=== PATIENT | female | born 1960 | race Caucasian/White ===

== ENCOUNTER 2018-10-16 14:19 | Emergency (ER) | payer MEDICARE, MEDICAID, SELFPAY ==
[2018-10-16 14:22] VITALS: BP 140/95; PULSE 71; RESP 18; TEMP 36.8; O2SAT 99
--- NOTE | 2018-10-16 14:35 | DI.RAD_ITS ---
SYMPTOMS/DIAGNOSIS: FALL ONTO OUTSTRETCHED HAND LEFT WRIST: Three views were obtained and show severely comminuted fractures of the distal radius and ulna with marked displacement of fracture fragments. There is widening of the articular surface of the distal radius. No additional carpal fracture seen.
--- NOTE | 2018-10-16 14:37 | W.ED.GENAD ---
Discharge Plan Disposition Patient Disposition: HOME Condition: Fair Discharge Details Chief Complaint: Orthopedic Clinical Impression: Closed fracture distal radius and ulna Primary Care Provider: Stephany Molina ED Provider: Adina Vee [place] Meds and New Rx's Prescriptions: New oxycodone 5 mg tablet 5 mg PO Q4H Qty: 10 RF: 0 Continued atenolol 100 MG tablet 100 mg PO DAILY RF: 0 clonazepam 1 MG tablet 1 - 2 mg PO .QHS RF: 0 esomeprazole magnesium [Nexium] 40 MG capsule,delayed release(DR/EC) 40 mg PO DAILY RF: 0 zolpidem 10 MG tablet 10 mg PO .QHS RF: 0 lisinopril-hydrochlorothiazide 20-12.5 mg Tablet 20 mg PO DAILY RF: 0 ibuprofen 800 mg Tablet 800 mg PO TID RF: 0 prochlorperazine maleate 5 mg Tablet 5 mg PO PRN PRNRF: 0 colesevelam [WelChol] 625 mg Tablet 1,875 mg PO DAILY RF: 0 Advair Diskus 100-50 mcg/dose Blister With Device 1 puff Inhalation DAILY RF: 0 fluticasone [Flonase Allergy Relief] 50 mcg/actuation [place],Suspension 100 mcg Intranasal PRN PRNRF: 0 acetaminophen 500 mg Capsule 500 mg PO DAILY RF: 0 levalbuterol tartrate [Xopenex HFA] 45 mcg/actuation Hfa Aerosol Inhaler 2 puff Inhalation TID RF: 0 tizanidine [Zanaflex] 2 mg Capsule 2 mg PO DAILY RF: 0 Narcan 4 mg/actuation [place],Non-Aerosol 4 mg Intranasal PRN PRNRF: 0 Discharge Instructions Instructions: Wrist Fracture in Adults (ED) Additional Instructions: Encourage rest, ice, elevation. Tylenol and/or Motrin as needed for discomfort. Please follow up with Dr. Gonzalez as planned, number listed below. If you develop new/worsening symptoms please seek care urgently once again. Referrals: Alfredo Gonzalez MD [ [facility] STAFF PHYSICIAN] - ([phone]) Stephany Molina [Primary Care Provider] - Discharge Data Discharge Date/Time-TO BE ENTERED AT DEPARTURE: 10/16/18 16:49 Medical Decision Making Patient is a 58-year-old [id number] female presenting today with chief complaint of left wrist pain. She reports that prior to arrival she slipped on the ice while carrying a large in the right arm. Tried to catch herself with her left hand. Had immediate onset of discomfort in the left wrist. She denies other injury at the time of the incident. Did not strike her head, loss of consciousness. Denies any pain in her neck or back. No shortness of breath or chest pain. No nausea or vomiting. No break in the skin is noted. Patient does have notable swelling, discomfort and slight deformity to the left wrist. Will obtain imaging. Will give Tylenol and ibuprofen to help with discomfort X-ray reviewed by radiologist: Three views were obtained and show severely comminuted fractures of the distal radius and ulna with marked displacement of fracture fragments. There is widening of the articular surface of the distal radius. No additional carpal fracture seen. The Carlos evaluated the x-ray, evaluated patient feels that reduction is appropriate. Please see his note for further information. He performed a bedside hematoma block and reduction. Applied plaster splint post reduction. He has requested that I place the patient in a sling Encourage rest, ice, elevation. Tylenol and/or ibuprofen as needed for discomfort. Patient will be prescribed oxycodone to augment this with in the event that it is insufficient in relieving her discomfort. Patient is planned to have surgical intervention with Dr. Gonzalez, he advised that he will be in touch with her in the next few days. We discussed new/worsening symptoms and when to seek care urgently once again. Patient continues to have brisk capillary refill and good sensation in her digits. All of her questions and concerns were addressed and she is in agreement this HPI General Mode of arrival: ambulatory. Date/Time Provider Initiated Documentation: 10/16/18 14:34. Limitations to Documentation: no limitations. Information obtained by: patient. History of Present Illness 58 year old F presents to the emergency department with the chief complaint of left wrist pain, described as severe, with intensity rated at 10. Quality is described as sharp, and is localized to the upper extremity. Patient distal (into hand with movement). Patient started experiencing this minute(s) and it has been constant. Immobilization improves symptom(s), Movement worsens symptoms . Patient notes denies chest pain, fever/chills, headaches, nausea/vomiting and rash. Patient did receive the following treatments prior to arrival, none Related Data Home Medications Medication Instructions Recorded Confirmed atenolol 100 mg PO DAILY 05/10/14 10/16/18 clonazepam 1 - 2 mg PO .QHS 05/10/14 10/16/18 esomeprazole magnesium [Nexium] 40 mg PO DAILY 05/10/14 10/16/18 zolpidem 10 mg PO .QHS 05/10/14 10/16/18 Advair Diskus 1 puff INHALATION DAILY 10/16/18 10/16/18 Narcan 4 mg INTRANASAL PRN PRN 10/16/18 10/16/18 acetaminophen 500 mg PO DAILY 10/16/18 10/16/18 colesevelam [WelChol] 1,875 mg PO DAILY 10/16/18 10/16/18 fluticasone [Flonase Allergy 100 mcg INTRANASAL PRN PRN 10/16/18 10/16/18 Relief] ibuprofen 800 mg PO TID 10/16/18 10/16/18 levalbuterol tartrate [Xopenex HFA] 2 puff INHALATION TID 10/16/18 10/16/18 lisinopril-hydrochlorothiazide 20 mg PO DAILY 10/16/18 10/16/18 oxycodone 5 mg PO Q4H #10 tab 10/16/18 prochlorperazine maleate 5 mg PO PRN PRN 10/16/18 10/16/18 tizanidine [Zanaflex] 2 mg PO DAILY 10/16/18 10/16/18 Previous Rx's Medication Instructions Recorded oxycodone 5 mg PO Q4H #10 tab 10/16/18 Allergies Allergy/AdvReac Type Severity Reaction Status Date / Time acetaminophen [From Roxicet] Allergy Intermediate Itching Unverified 11/10/16 12:28 oxycodone HCl [From Roxicet] Allergy Intermediate Itching Unverified 11/10/16 12:28 Sulfa (Sulfonamide Allergy Intermediate Skin Rash Unverified 11/10/16 12:28 Antibiotics) aspirin Allergy Unknown Unverified 11/10/16 12:28 hydrochlorothiazide AdvReac Intermediate Unverified 11/10/16 12:28 trazodone AdvReac Intermediate Unverified 11/10/16 12:28 General Stated Complaint: Orthopedic NEO: 4 Review of Systems Constitutional Reports as per HPI, Denies chills, Denies fever(s), Denies headache(s) and Denies weakness ENT Denies headache(s) Cardiovascular Reports as per HPI Respiratory Reports as per HPI and Denies cough Musculoskeletal Reports as per HPI and Denies tingling Integumentary/Breasts Reports as per HPI, Denies rash and Denies wounds Neurologic Denies headache(s), Denies tingling and Denies weakness PFS Social History Smoking/Tobacco Use Status: Never Exam Const General: cooperative, healthy appearing, comfortable, no acute distress, well developed and well groomed Nutritional Appearance: average body habitus and well nourished Orientation: alert and awake Resp Effort & Inspection: normal respiratory effort, able to speak in complete sentences and no respiratory distress Cardio Rate: regular rate Rhythm: regular rhythm Skin General skin exam: no rashes or lesions noted Lesions: no lesions Rashes: no rashes Trauma: no lacerations or abrasions Neuro General: alert and awake Cognition: normal cognition Speech: speech normal Gait: normal gait Motor: muscle tone normal throughout Sensory Exam: no sensory deficits noted Extrem Left upper extremity: normal capillary refill, elbow/forearm Details: normal to inspection and wrist Details: tenderness Location: of the distal radius, of the distal ulna and of the dorsal wrist; not of the anatomic snuffbox, swelling Location: of the dorsal wrist, deformity and normal vascular exam; ROM abnormal, no unusual warmth and no ecchymosis; abnormal to inspection, ROM limited, no edema and joint enlargement noted (Swelling dorsal aspect left wrist) Psych Appearance: grossly normal and well kempt Mental Status: mental status grossly normal Speech and Movement: speech and movement normal Course Vital Signs Temperature 36.8 C 10/16/18 14:22 Pulse 71 10/16/18 14:22 Respiratory Rate 18 10/16/18 14:22 Blood Pressure 140/95 H 10/16/18 14:22 Pulse Oximetry 99 10/16/18 14:22 Temperature 36.8 C 10/16/18 14:22 Temperature Source Temporal Artery Scan 10/16/18 14:22 Pulse 71 10/16/18 14:22 Respiratory Rate 18 10/16/18 14:22 Respiratory Effort Non-Labored 10/16/18 14:22 Blood Pressure 140/95 H 10/16/18 14:22 Blood Pressure Position Supine 10/16/18 14:22 Pulse Oximetry 99 10/16/18 14:22 Oxygen Delivery Method Room Air 10/16/18 14:22 Oxygen Flow Rate 0 10/16/18 14:22 Pain Level 10 10/16/18 14:22
--- NOTE | 2018-10-16 14:46 | ED.GENADUL_ITS ---
Discharge Plan Disposition Patient Disposition: HOME Condition: Fair Discharge Details Chief Complaint: Orthopedic Clinical Impression: Closed fracture distal radius and ulna Primary Care Provider: Stephany Molina ED Provider: Adina Vee [place] Meds and New Rx's Prescriptions: New oxycodone 5 mg tablet 5 mg PO Q4H Qty: 10 RF: 0 Continued atenolol 100 MG tablet 100 mg PO DAILY RF: 0 clonazepam 1 MG tablet 1 - 2 mg PO .QHS RF: 0 esomeprazole magnesium [Nexium] 40 MG capsule,delayed release(DR/EC) 40 mg PO DAILY RF: 0 zolpidem 10 MG tablet 10 mg PO .QHS RF: 0 lisinopril-hydrochlorothiazide 20-12.5 mg Tablet 20 mg PO DAILY RF: 0 ibuprofen 800 mg Tablet 800 mg PO TID RF: 0 prochlorperazine maleate 5 mg Tablet 5 mg PO PRN PRNRF: 0 colesevelam [WelChol] 625 mg Tablet 1,875 mg PO DAILY RF: 0 Advair Diskus 100-50 mcg/dose Blister With Device 1 puff Inhalation DAILY RF: 0 fluticasone [Flonase Allergy Relief] 50 mcg/actuation [place],Suspension 100 mcg Intranasal PRN PRNRF: 0 acetaminophen 500 mg Capsule 500 mg PO DAILY RF: 0 levalbuterol tartrate [Xopenex HFA] 45 mcg/actuation Hfa Aerosol Inhaler 2 puff Inhalation TID RF: 0 tizanidine [Zanaflex] 2 mg Capsule 2 mg PO DAILY RF: 0 Narcan 4 mg/actuation [place],Non-Aerosol 4 mg Intranasal PRN PRNRF: 0 Discharge Instructions Instructions: Wrist Fracture in Adults (ED) Additional Instructions: Encourage rest, ice, elevation. Tylenol and/or Motrin as needed for discomfort. Please follow up with Dr. Gonzalez as planned, number listed below. If you develop new/worsening symptoms please seek care urgently once again. Referrals: Alfredo Gonzalez MD [ [facility] STAFF PHYSICIAN] - ([phone]) Stephany Molina [Primary Care Provider] - Discharge Data Discharge Date/Time-TO BE ENTERED AT DEPARTURE: 10/16/18 16:49 Medical Decision Making Patient is a 58-year-old [id number] female presenting today with chief complaint of left wrist pain. She reports that prior to arrival she slipped on the ice while carrying a large in the right arm. Tried to catch herself with her left hand. Had immediate onset of discomfort in the left wrist. She denies other injury at the time of the incident. Did not strike her head, loss of consciousness. Denies any pain in her neck or back. No shortness of breath or chest pain. No nausea or vomiting. No break in the skin is noted. Patient does have notable swelling, discomfort and slight deformity to the left wrist. Will obtain imaging. Will give Tylenol and ibuprofen to help with discomfort X-ray reviewed by radiologist: Three views were obtained and show severely comminuted fractures of the distal radius and ulna with marked displacement of fracture fragments. There is widening of the articular surface of the distal radius. No additional carpal fracture seen. The Carlos evaluated the x-ray, evaluated patient feels that reduction is appropriate. Please see his note for further information. He performed a bedside hematoma block and reduction. Applied plaster splint post reduction. He has requested that I place the patient in a sling Encourage rest, ice, elevation. Tylenol and/or ibuprofen as needed for discomfort. Patient will be prescribed oxycodone to augment this with in the event that it is insufficient in relieving her discomfort. Patient is planned to have surgical intervention with Dr. Gonzalez, he advised that he will be in touch with her in the next few days. We discussed new/worsening symptoms and when to seek care urgently once again. Patient continues to have brisk capillary refill and good sensation in her digits. All of her questions and concerns were addressed and she is in agreement this HPI General Mode of arrival: ambulatory . Date/Time Provider Initiated Documentation: 10/16/18 14:34 . Limitations to Documentation: no limitations . Information obtained by: patient . History of Present Illness 58 year old F presents to the emergency department with the chief complaint of left wrist pain, described as severe, with intensity rated at 10. Quality is described as sharp, and is localized to the upper extremity. Patient distal (into hand with movement). Patient started experiencing this minute(s) and it has been constant. Immobilization improves symptom(s), Movement worsens symptoms . Patient notes denies chest pain, fever/chills, headaches, nausea/vomiting and rash. Patient did receive the following treatments prior to arrival, none Related Data Home Medications Medication Instructions Recorded Confirmed atenolol 100 mg PO DAILY 05/10/14 10/16/18 clonazepam 1 - 2 mg PO .QHS 05/10/14 10/16/18 esomeprazole magnesium [Nexium] 40 mg PO DAILY 05/10/14 10/16/18 zolpidem 10 mg PO .QHS 05/10/14 10/16/18 Advair Diskus 1 puff INHALATION DAILY 10/16/18 10/16/18 Narcan 4 mg INTRANASAL PRN PRN 10/16/18 10/16/18 acetaminophen 500 mg PO DAILY 10/16/18 10/16/18 colesevelam [WelChol] 1,875 mg PO DAILY 10/16/18 10/16/18 fluticasone [Flonase Allergy 100 mcg INTRANASAL PRN PRN 10/16/18 10/16/18 Relief] ibuprofen 800 mg PO TID 10/16/18 10/16/18 levalbuterol tartrate [Xopenex HFA] 2 puff INHALATION TID 10/16/18 10/16/18 lisinopril-hydrochlorothiazide 20 mg PO DAILY 10/16/18 10/16/18 oxycodone 5 mg PO Q4H #10 tab 10/16/18 prochlorperazine maleate 5 mg PO PRN PRN 10/16/18 10/16/18 tizanidine [Zanaflex] 2 mg PO DAILY 10/16/18 10/16/18 Previous Rx's Medication Instructions Recorded oxycodone 5 mg PO Q4H #10 tab 10/16/18 Allergies Allergy/AdvReac Type Severity Reaction Status Date / Time acetaminophen [From Roxicet] Allergy Intermediate Itching Unverified 11/10/16 12:28 oxycodone HCl [From Roxicet] Allergy Intermediate Itching Unverified 11/10/16 12:28 Sulfa (Sulfonamide Allergy Intermediate Skin Rash Unverified 11/10/16 12:28 Antibiotics) aspirin Allergy Unknown Unverified 11/10/16 12:28 hydrochlorothiazide AdvReac Intermediate Unverified 11/10/16 12:28 trazodone AdvReac Intermediate Unverified 11/10/16 12:28 General Stated Complaint: Orthopedic NEO: 4 Review of Systems Constitutional Reports as per HPI, Denies chills, Denies fever(s), Denies headache(s) and Denies weakness ENT Denies headache(s) Cardiovascular Reports as per HPI Respiratory Reports as per HPI and Denies cough Musculoskeletal Reports as per HPI and Denies tingling Integumentary/Breasts Reports as per HPI, Denies rash and Denies wounds Neurologic Denies headache(s), Denies tingling and Denies weakness PFS Social History Smoking/Tobacco Use Status: Never Exam Const General: cooperative, healthy appearing, comfortable, no acute distress, well developed and well groomed Nutritional Appearance: average body habitus and well nourished Orientation: alert and awake Resp Effort & Inspection: normal respiratory effort, able to speak in complete sentences and no respiratory distress Cardio Rate: regular rate Rhythm: regular rhythm Skin General skin exam: no rashes or lesions noted Lesions: no lesions Rashes: no rashes Trauma: no lacerations or abrasions Neuro General: alert and awake Cognition: normal cognition Speech: speech normal Gait: normal gait Motor: muscle tone normal throughout Sensory Exam: no sensory deficits noted Extrem Left upper extremity: normal capillary refill, elbow/forearm Details: normal to inspection and wrist Details: tenderness Location: of the distal radius, of the distal ulna and of the dorsal wrist; not of the anatomic snuffbox, swelling Location: of the dorsal wrist, deformity and normal vascular exam; ROM abnormal, no unusual warmth and no ecchymosis; abnormal to inspection, ROM limited, no edema and joint enlargement noted (Swelling dorsal aspect left wrist) Psych Appearance: grossly normal and well kempt Mental Status: mental status grossly normal Speech and Movement: speech and movement normal Course Vital Signs Temperature 36.8 C 10/16/18 14:22 Pulse 71 10/16/18 14:22 Respiratory Rate 18 10/16/18 14:22 Blood Pressure 140/95 H 10/16/18 14:22 Pulse Oximetry 99 10/16/18 14:22 Temperature 36.8 C 10/16/18 14:22 Temperature Source Temporal Artery Scan 10/16/18 14:22 Pulse 71 10/16/18 14:22 Respiratory Rate 18 10/16/18 14:22 Respiratory Effort Non-Labored 10/16/18 14:22 Blood Pressure 140/95 H 10/16/18 14:22 Blood Pressure Position Supine 10/16/18 14:22 Pulse Oximetry 99 10/16/18 14:22 Oxygen Delivery Method Room Air 10/16/18 14:22 Oxygen Flow Rate 0 10/16/18 14:22 Pain Level 10 10/16/18 14:22
[2018-10-16] MEDS: Acetaminophen 500 MG TAB 1000 MG PO (14:54)
[2018-10-16] MEDS: Ibuprofen 800 MG TAB PO (14:54)
--- NOTE | 2018-10-16 15:03 | NUR.NOTE ---
Nursing Note:Pt off unit to XR. noted swelling to left wrist. medicated as ordered. will continue to monitor. ice and elevation applied
--- NOTE | 2018-10-16 15:21 | NUR.NOTE ---
Nursing Note:Returned from XR, surgery in speaking with patient
--- NOTE | 2018-10-16 15:46 | NUR.NOTE ---
Nursing Note: Left wrist fx reduced by ortho in room
--- NOTE | 2018-10-16 16:23 | NUR.NOTE ---
Nursing Note: Resting in bed in room, left arm/wrist splinted. freinds visiting. will continue to monitor.
--- NOTE | 2018-10-16 19:51 | W.ORTHOCONSU ---
Date of service: 11/16/18 Time of Service: 15:51 History of Present Illness Chief Complaint: Left wrist pain Narrative: Lena is a 58yo RHD female who fell earlier today prior to presentation. She had immediate pain and deformity. She denies any numbness or tingling. She denies pain in the elbow or the shoulder. She has no pre-fall pain or complaints about the left wrist. She lives independently by herself. Consult Reason Left wrist fracture Assessment and Plan (1) Fracture of left distal radius: Current visit: No Status: Acute Lena is a 58yo female with a left distal radius and ulna fracture. There is significant displacement. To improve the displacement, I recommended a reduction. A hematoma block was administered after prepping the skin with alcohol, aspirating fracture hematoma, and injecting the fracture site with 10cc of 1% Lidocaine. Her pain improved and a closed reduction was performed. She was placed into a volar resting splint. Given her age, fracture communition, and a fractured ulna, I recommended operative fixation. I discussed the risks of the procedure to include bleeding, infection, pain, stiffness, damage to nerves and vessels, hardware prominence, hardware irritation, need for repeat procedures. Despite these risks she agrees to proceed. Qualifiers: Encounter type: initial encounter Fracture type: closed Fracture morphology: other intra-articular Qualified Code(s): S52.572A - Other intraarticular fracture of lower end of left radius, initial encounter for closed fracture Review of Systems Review of Systems All systems reviewed & are unremarkable except as noted in HPI and below PFS Medical History Hyperlipidemia (Acute) COPD (chronic obstructive pulmonary disease) (Chronic) Chronic pain (Chronic) Social History Smoking/Tobacco Use Status: Never Exam Narrative Exam Narrative: Chest clear to auscultation with faint expiratory wheeze. Mild distress and tearful. Left wrist with notable eccymosis palmarly. There is some swelling. No break in the skin. Obvious dorsal deformity. SILT M/R/U. Results Last Vital Signs Temp 36.8 C 10/16/18 14:22 Pulse 71 10/16/18 14:22 Resp 18 10/16/18 14:22 BP 140/95 H 10/16/18 14:22 Pulse Ox 99 10/16/18 14:22 Imaging Imaging Studies: XR of Left Wrist with significant dorsal displacement of the distal raidus with intraarticular involvement. There s also a communited fracture of the distal ulna.
== END 2018-10-16 16:49 | disposition home or self-care (01) ==
LOC: ER 17:55
PROVIDERS: Emergency Provider Physician Assistant; PCP Nurse Practitioner Family
DX: S52.502A Unspecified fracture of the lower end of left radius, initial encounter for closed fracture (principal); S52.602A Unspecified fracture of lower end of left ulna, initial encounter for closed fracture; W00.0XXA Fall on same level due to ice and snow, initial encounter
CPT/HCPCS: 99253; 99284; 73110; L3650

== ENCOUNTER 2018-10-24 09:02 | Day surgery (SDC) | payer MEDICARE, MEDICAID, SELFPAY ==
[2018-10-24] VITALS (7 sets, daily range): BP systolic 112–137; BP diastolic 57–85; PULSE 83–93; RESP 14–22; TEMP 36.7–37.1; O2SAT 97–99
[2018-10-24] MEDS: Lactated Ringers 1,000 ML 80 ML IV (09:56)
[2018-10-24] MEDS: Bupivacaine 0.5% Pres-Free 30 ML VIAL (10:24)
[2018-10-24] MEDS: Bupivacaine LIPOSOME/PF 133 MG/10 ML VIAL IJ (10:24)
--- NOTE | 2018-10-24 12:09 | W.PM.DSUDISC ---
Discharge Plan Disposition Patient Disposition: HOME Condition: Stable Discharge Details Reason For Visit: (L) DISTAL RADIUS /ULNA FX Attending Provider: Alfredo Gonzalez Primary Care Provider: Stephany Molina Home Meds and New Rx's Prescriptions: New acetaminophen 500 mg capsule 1,000 mg PO Q8H PRN (Reason: pain) Qty: 90 RF: 0 Continued atenolol 100 MG tablet 100 mg PO DAILY RF: 0 esomeprazole magnesium [Nexium] 40 MG capsule,delayed release(DR/EC) 40 mg PO DAILY RF: 0 Zyrtec 10 mg Capsule 10 mg PO DAILY RF: 0 diphenhydramine HCl [Benadryl] 25 mg Capsule 50 mg PO Q4H PRNRF: 0 ibuprofen 800 mg Tablet 800 mg PO TID Qty: 60 RF: 3 oxycodone 5 mg tablet 5 mg PO Q4H Qty: 12 RF: 0 lisinopril-hydrochlorothiazide 20-12.5 mg Tablet 20 mg PO DAILY RF: 0 prochlorperazine maleate 5 mg Tablet 5 mg PO PRN PRNRF: 0 colesevelam [WelChol] 625 mg Tablet 1,875 mg PO DAILY RF: 0 Advair Diskus 100-50 mcg/dose Blister With Device 1 puff Inhalation DAILY RF: 0 fluticasone [Flonase Allergy Relief] 50 mcg/actuation [place],Suspension 100 mcg Intranasal PRN PRNRF: 0 levalbuterol tartrate [Xopenex HFA] 45 mcg/actuation Hfa Aerosol Inhaler 2 puff Inhalation TID RF: 0 tizanidine [Zanaflex] 2 mg Capsule 2 mg PO DAILY RF: 0 Narcan 4 mg/actuation [place],Non-Aerosol 4 mg Intranasal PRN PRNRF: 0 Discontinued acetaminophen 500 mg Capsule 500 mg PO DAILY RF: 0 Discharge Instructions Additional Instructions: Activity: You should keep the hand elevated as much as possible for the first few days. You may use the other fingers as tolerated but avoid trying to do too much too soon. Use the sling for comfort but you may remove as tolerated. Dressing/Cast: Your splint should stay in place at all times. Do NOT get it wet. You may loosen the OLINDA wrap if you feel it is too tight and then rewrap more loosely. Medications: - You should take Tylenol and Ibuprofen for baseline pain control. - You have Oxycodone for breakthrough pain. - You may apply ice over the wrist. Follow-up: 10 days Referrals: Alfredo Gonzalez MD [ [facility] STAFF PHYSICIAN] - Equipment/Supplies: Sling Activity:: Elevate Remove Dressings/Wound Care:: Do Not Remove Shower/Bathe:: Cover Diet:: As Tolerated Discharge Orders Discharge Orders: Discharge Order (Routine); Ordered 10/24/18 Ordered By: Alfredo Gonzalez DS: Diagnosis Discharge Diagnosis (1) Fracture of left distal radius: Status: Acute
--- NOTE | 2018-10-24 12:25 | DI.RAD_ITS ---
SYMPTOMS/DIAGNOSIS: LT WRIST FRACTURE LEFT WRIST IN THE OR: Fluoroscopy Time: 2.25 sec., 0.9430mGy Comparison is 10/16/18. Images from the operating room show reduction and internal fixation of the distal left radial fracture. The alignment appears anatomic. The distal ulnar fracture has shown improved alignment but there is persistent mild displacement noted. Please refer to the procedure report for complete details.
[2018-10-24] MEDS: oxyCODONE 5 MG TAB PO (13:54)
--- NOTE | 2018-10-25 09:43 | ROE_ITS ---
DATE OF SURGERY: October 24, 2018 PREOPERATIVE DIAGNOSIS: Left distal radius and ulnar fracture. POSTOPERATIVE DIAGNOSIS: Same. SURGERY: Open reduction and internal fixation of left distal radius fracture, intra-articular, great er than three components. SURGEON: Alfredo Gonzalez M.D. TIRE MOLD ENGRAVER: Irma Hong PA-C FINDINGS: There was a severely comminuted intra-articular distal radius fracture of the left side. There were multiple pieces, both at the articular surface and also the metaphyseal region. Reduction was performed and was possible on the radius, but the ulna still seemed to be locked in a slightly a ngulated position. However, given the good reduction of the radius, we did not perform any additiona l dissection to try to disimpact the ulna. The plate was placed onto the radius in a nearly anatomic position with Norian bone cement to support the bone vacancies. ANESTHESIA: General with an interscalene nerve block. ESTIMATED BLOOD LOSS: 20 cc's COMPLICATIONS: None. DISPOSITION: The patient was awakened from anesthesia and taken to the PACU in a stable condition. INDICATION FOR PROCEDURE: Lena is a 58-year-old right hand dominant female who fell on the ice. She landed on the left hand. She had immediate deformity and pain. She was seen in the Emergency D epartment and diagnosed with a comminuted, intra-articular distal radius and ulnar fracture. I saw h er in the Emergency Department. Given the severity of the deformity, the comminution in the metaphys is and the fracture of the ulna, I did not believe this would be able to be treated non-operatively. I did perform a gentle reduction in the Operating Room and placed her in a splint. She was resting at home to decrease swelling to the left hand. After eight days she was then brought back to the Ope rating Room. I reviewed the risks of the procedure to include bleeding, infection, pain, stiffness, malunion, nonunion, damage to nerves and vessels, damage to muscles and tendons, hardware prominence, need for repeat procedures. Despite these risks, she elected to proceed. PROCEDURE DESCRIPTION: Lena was greeted in the preoperative holding. Her identify was confirmed and the correct side was identified and marked. The consent was reviewed with the patient and elissa d. The history and physical was updated. She was taken back to the PACU and administered a regional anesthetic, interscalene nerve block, for the procedure and postoperative pain control. After succe ssful administration of the block, she was taken back to the Operating Room. She was placed in the s upine position. All bony prominences were well-padded. The left hand was placed onto the hand table . The splint was removed and the left arm was prepped with ChloraPrep and draped in standard fashion . Prophylactic antibiotics in the form of Cefazolin were given. A time-out was performed for safe s urgery. The significant amount of swelling and ecchymosis had resolved, although it was still swollen, the sk in had wrinkles. The surgical site was marked, overlying the flexor carpi radialis tendon. The limb was exsanguinated and the tourniquet was inflated to 255 mmHg, where it stayed for approximately 45 minutes. The incision was then made sharply down through the skin and to identify the sheath of the flexor carpi radialis tendon. Once the sheath was identified this was incised sharply and the sheath was opened up distally and proximally. The flexor crease at the wrist was not crossed. With the sh eath opened up, the flexor carpi radialis tendon was retracted ulnarly and the deep portion of the sh eath was opened as well. Once the sheath was opened, the flexor pollicis longus muscle and tendon we re retracted ulnarly as well. This allowed visualization of the multiple fracture fragments and the pronator quadratus. The pronator quadratus was torn at the level of the metaphyseal spike. The pron ator quadratus was elevated off the radial side of the distal radius. This exposed the metaphyseal c omminution. Retractors were placed. The distal radius was significantly unstable. There was noted to be two main metaphyseal pieces and three fractures that seemed to be going into the articular surf elvis. The radial styloid piece was a separate fracture, but it was held together by ligaments around the wrist and was not easily maneuverable, and therefore it was left in place to be maneuvered with t he distal radius block. Reduction attempt was performed, which showed adequate reduction of the dist al radius. However, there was still some persistent angulation of the distal ulna. A few attempts o f manipulation of the ulna were made, but we were unable to disimpact the ulna. Therefore I accepted the malreduction of the ulna for the adequate reduction of the radius. The bone quality was quite p oor. The fracture fragments extended very proximally and I had to shift the plate more proximal than I would like. With the arm held in a reduced position, I then placed a 3-hole plate onto the distal radius for evaluation of positioning. Once it appeared to be in a good position, K-Wires were place d both proximally and distally to hold the plate in position. I placed screws in the distal fragment first. The first screw was a non-locking cortical screw. Unfortunately the bone quality was so poo r and the fracture fragments were such that I was unable to get any significant purchase. With holdi ng the plate in position by both hand and with a clamp, I did place two more locking screws in the di stal articular block. This did secure the distal fragment onto the plate. The C-arm was then once a gain used to visualize the position of the distal radial fragment and its position in relation to the ulna and to the shaft of the radius. The plate was manipulated slightly then overall appeared to be in a good position. The plate was then secured to the shaft with a non-locking 2.7 mm cortical scre w. The remainder of the articular segment was then filled with locking screws. These were made sure to not be too long. X-ray was used to confirm that they were not interarticular, nor that they were too proud. The wrist motion was checked and noted to be full. There were no hitches in the motions to suggest interarticular placement of screws, nor was there any motion of the fracture fragments gi shena the tenuous bone quality. The remainder two shaft screws were placed. These were cortical non-l ocking screws. The wound was then thoroughly irrigated. There was notable defect of bone and theref ore 5 cc's of Norian was injected into the metaphyseal void. Excess was cleaned. Once this had set up, I then deflated the tourniquet. There was no significant bleeding. The wound was again irrigate d. The pronator quadratus was really unable to be closed. I was able to get a few pieces of the pro nator quadratus back over the radius at its more proximal aspect, but the distal component, which was already torn, was unable to be repaired. The deep tissue then was closed with a #3-0 Vicryl. The s kin was closed with a #3-0 nylon. Xeroform was placed over the wound followed by 4x4's, Akhil, mina rt-arm splint. She was given a sling. At the end of the case all counts were correct.
== END 2018-10-24 14:41 | disposition home or self-care (01) ==
PROVIDERS: PCP Nurse Practitioner Family; Visit Provider Student in an Organized Health Care Education/Training Program
PROC: (CPT 25609; principal; 2018-10-24 10:00)
DX: S52.572A Other intraarticular fracture of lower end of left radius, initial encounter for closed fracture (principal); S52.602A Unspecified fracture of lower end of left ulna, initial encounter for closed fracture; W00.0XXA Fall on same level due to ice and snow, initial encounter
CPT/HCPCS: 25609; 25652; 64450; C1713; 76942; 73100; J0690; J1100; J1885; J2250; J2405; L3650

== ENCOUNTER 2018-11-06 10:23 | Outpatient (CLI) | payer MEDICARE, MEDICAID, SELFPAY ==
--- NOTE | 2018-11-06 10:17 | DI.RAD_ITS ---
SYMPTOMS/DIAGNOSIS: S/P ORIF LT WRIST LEFT WRIST: Comparison is made with intraoperative images of 3Jan19. A volar fixation plate is again noted along the distal radius for fracture fixation. The comminuted fracture of the ulna is again noted.
== END 2018-11-06 10:43 ==
PROVIDERS: PCP Nurse Practitioner Family; Referring Provider Nurse Practitioner Family; Visit Provider Student in an Organized Health Care Education/Training Program
DX: S52.572D Other intraarticular fracture of lower end of left radius, subsequent encounter for closed fracture with routine healing (principal); X58.XXXD Exposure to other specified factors, subsequent encounter; J44.9 Chronic obstructive pulmonary disease, unspecified
CPT/HCPCS: 73110; L3908

== ENCOUNTER 2018-11-20 13:41 | Outpatient (CLI) | payer MEDICARE, MEDICAID, SELFPAY ==
--- NOTE | 2018-11-20 13:26 | DI.RAD_ITS ---
SYMPTOM/DIAGNOSIS: ORIF LEFT WRIST LEFT WRIST 11/20/18 Two views were obtained and show previously described radial ulnar fracture with plate and screw fixation placed on the distal radius. Alignment appears essentially unchanged in comparison with examination of 11/06/18.
== END 2018-11-20 14:01 ==
PROVIDERS: PCP Nurse Practitioner Family; Referring Provider Nurse Practitioner Family; Visit Provider Student in an Organized Health Care Education/Training Program
DX: S52.572D Other intraarticular fracture of lower end of left radius, subsequent encounter for closed fracture with routine healing (principal); S52.602D Unspecified fracture of lower end of left ulna, subsequent encounter for closed fracture with routine healing; W00.0XXD Fall on same level due to ice and snow, subsequent encounter
CPT/HCPCS: 73100

== ENCOUNTER 2018-12-18 14:49 | Outpatient (CLI) | payer MEDICARE, MEDICAID, SELFPAY ==
--- NOTE | 2018-12-18 14:46 | DI.RAD_ITS ---
SYMPTOMS/DIAGNOSIS: F/U LEFT WRIST OPEN REDUCTION AND INTERNAL FIXATION LEFT WRIST: Three views. Comparison is 11/20/18. There is again seen a sideplate and screws transfixing the distal left radial fracture. No change in alignment of the orthopedic hardware or fracture components is seen. There has been no change in alignment of the healing distal left ulnar fracture. The bones appear osteopenic. There is soft tissue swelling about the wrist.
== END 2018-12-18 15:09 ==
PROVIDERS: PCP Nurse Practitioner Family; Referring Provider Nurse Practitioner Family; Visit Provider Student in an Organized Health Care Education/Training Program
DX: S52.572D Other intraarticular fracture of lower end of left radius, subsequent encounter for closed fracture with routine healing; J44.9 Chronic obstructive pulmonary disease, unspecified; S52.602D Unspecified fracture of lower end of left ulna, subsequent encounter for closed fracture with routine healing; W00.0XXD Fall on same level due to ice and snow, subsequent encounter
CPT/HCPCS: 73100

== ENCOUNTER 2018-12-30 08:31 | Outpatient (REF) | payer MEDICARE, MEDICAID, SELFPAY ==
[2018-12-30 12:58] LABS: Anion Gap 13.7 mmol/L (3-11); BUN 38 mg/dL (7-18); CO2 24.3 mmol/L (21.0-32.0); Calcium 8.7 mg/dL (8.5-10.1); Chloride 105 mmol/L (98-107); Cholesterol 310 mg/dL (50-200); Estimated GFR 25.59 (mL/min/1.73m2); Glucose 87 mg/dL (70-100); HDL Cholesterol 44 mg/dL (40-60); LDL CHOLESTEROL 230 mg/dL (<100); Potassium 3.5 mmol/L (3.5-5.1); Sodium 143 mmol/L (136-145); Triglyceride 187 mg/dL (30-150)
[2018-12-30 14:34] LABS: Hemoglobin A1C 5.5 % (4.5-6.2)
== END 2018-12-30 08:51 ==
LOC: NCHCN 08:31
PROVIDERS: PCP Nurse Practitioner Family; Visit Provider Nurse Practitioner Family
DX: E78.5 Hyperlipidemia, unspecified (principal); I10 Essential (primary) hypertension; Z13.1 Encounter for screening for diabetes mellitus; Z83.3 Family history of diabetes mellitus
CPT/HCPCS: 80048; 80061; 83721; 83036

== ENCOUNTER 2019-01-29 15:29 | Outpatient (CLI) | payer MEDICARE, MEDICAID, SELFPAY ==
--- NOTE | 2019-01-29 15:25 | DI.RAD_ITS ---
SYMPTOM/DIAGNOSIS: F/U ORIF LEFT WRIST: Two views were obtained and show plate and screw fixation of the fracture of the distal radius with no gross interval change in alignment in comparison with examination of 12/18/18. There is a healing ulnar fracture noted, also unchanged in alignment.
== END 2019-01-29 15:49 ==
PROVIDERS: PCP Nurse Practitioner Family; Referring Provider Nurse Practitioner Family; Visit Provider Student in an Organized Health Care Education/Training Program
DX: S52.572A Other intraarticular fracture of lower end of left radius, initial encounter for closed fracture; S52.602A Unspecified fracture of lower end of left ulna, initial encounter for closed fracture; J44.9 Chronic obstructive pulmonary disease, unspecified; X58.XXXA Exposure to other specified factors, initial encounter
CPT/HCPCS: 99211; 99213; 73100

== ENCOUNTER 2019-02-10 09:53 | Outpatient (REF) | payer MEDICARE, MEDICAID, SELFPAY ==
[2019-02-10 13:34] LABS: ALT 66 U/L (12-78); AST 37 U/L (15-37); Albumin 3.8 g/dL (3.4-5.0); Alkaline Phosphatase 124 U/L (46-116); Anion Gap 9.4 mmol/L (3-11); BUN 23 mg/dL (7-18); Bilirubin, Total 0.5 mg/dL (0.2-1.0); CO2 31.6 mmol/L (21.0-32.0); CREATININE 1.38 mg/dL (0.55-1.02); Calcium 8.7 mg/dL (8.5-10.1); Chloride 102 mmol/L (98-107); Estimated GFR 39.27 (mL/min/1.73m2); Glucose 102 mg/dL (70-100); Potassium 3.2 mmol/L (3.5-5.1); Sodium 143 mmol/L (136-145); Total Protein 7.2 g/dL (6.4-8.2)
== END 2019-02-10 10:13 ==
LOC: NCHCN 09:53
PROVIDERS: PCP Nurse Practitioner Family; Visit Provider Nurse Practitioner Family
DX: N28.9 Disorder of kidney and ureter, unspecified (principal); R94.4 Abnormal results of kidney function studies; I10 Essential (primary) hypertension
CPT/HCPCS: 80053

== ENCOUNTER 2019-02-19 12:59 | Outpatient (REF) | payer MEDICARE, MEDICAID, SELFPAY ==
[2019-02-19 13:44] LABS: Abs Immature Grans 0.03 k/cumm (0.0-0.09); Absolute Basophil Count 0.03 k/cumm (0.0-0.2); Absolute Lymphocyte Count 2.03 k/cumm (1.2-3.4); Absolute Monocyte Count 0.95 k/cumm (0.11-0.7); Absolute Neutrophil Count 5.97 k/cumm (1.2-6.7); Basophils % 0.3; Eosinophils % 2.2; HCT 36.9 % (36.0-46.0); HGB 11.5 g/dL (12.0-15.5); Immature Grans % 0.3; Mean Corp. HGB Concentration 31.2 g/dL (32.0-36.0); Mean Corpuscular Hemoglobin 30.9 pg (27.0-33.0); Mean Corpuscular Volume 99.2 fL (80-95); Mean Platelet Volume 11.4 fL (8.0-11.0); Monocytes % 10.3; Neutrophils % 64.9; Platelet Count 303 x1000/uL (130-400); RBC 3.72 m/cumm (4.00-5.20); RBC Distribution Width 13.5 % (11.7-14.6); White Blood Cell Count 9.21 k/cumm (4.4-10.8)
[2019-02-19 13:47] LABS: ALT 70 U/L (12-78); AST 37 U/L (15-37); Albumin 3.9 g/dL (3.4-5.0); Alkaline Phosphatase 148 U/L (46-116); Anion Gap 9.7 mmol/L (3-11); BUN 24 mg/dL (7-18); Bilirubin, Total 0.5 mg/dL (0.2-1.0); CO2 32.3 mmol/L (21.0-32.0); CREATININE 1.38 mg/dL (0.55-1.02); Calcium 9.2 mg/dL (8.5-10.1); Chloride 102 mmol/L (98-107); Estimated GFR 39.27 (mL/min/1.73m2); Glucose 88 mg/dL (70-100); Potassium 3.2 mmol/L (3.5-5.1); Sodium 144 mmol/L (136-145); Total Protein 7.4 g/dL (6.4-8.2)
[2019-02-20 14:17] LABS: Vitamin B12 526 pg/mL (193-986)
== END 2019-02-19 13:19 ==
LOC: NCHCN 12:59
PROVIDERS: PCP Nurse Practitioner Family; Visit Provider Nurse Practitioner Family
DX: N28.9 Disorder of kidney and ureter, unspecified (principal); R94.4 Abnormal results of kidney function studies; Z51.81 Encounter for therapeutic drug level monitoring
CPT/HCPCS: 80053; 82607; 85025

== ENCOUNTER 2019-03-13 12:15 | Outpatient (REF) | payer MEDICARE, MEDICAID, SELFPAY ==
--- NOTE | 2019-03-13 11:30 | SKI_PTH ---
PATIENT: Lena Alexandre LOC: [facility] U#:[id number] AGE/SX: 58/F ROOM: RE03/13/[address]: Marko Duffy : 1960 BED: DIS: 03/13/2019 SPEC #: [id number] RECD: 03/14/19 12:29 STATUS: JESSICA REReina #: [id number] VANESSA: 03/13/19 11:[address]: Marko Duffy DEPT: Surgical Specimen RECD BY: Sharonda Palomino ENTERED: 03/14/19 12:30 SP TYPE: YANDEL HUIZAR DR: Stephany Molina Tissues: 1 - SKIN BIOPSY(SHAVE/PUNCH) 2 - SKIN BIOPSY(SHAVE/PUNCH) Procedures: SKIN LEVEL 4 Comments: [id number]
== END 2019-03-13 12:35 ==
LOC: NCHCN 12:15
PROVIDERS: PCP Nurse Practitioner Family; Visit Provider Nurse Practitioner Family
DX: L28.0 Lichen simplex chronicus (principal)
CPT/HCPCS: 88305

== ENCOUNTER → 2019-03-26 13:54 | Outpatient (BNVA) | payer MEDICARE, MEDICAID, SELFPAY | PROVIDERS: PCP Nurse Practitioner Family; Referring Provider Nurse Practitioner Family; Visit Provider Student in an Organized Health Care Education/Training Program | DX: S52.502D Unspecified fracture of the lower end of left radius, subsequent encounter for closed fracture with routine healing; S52.602D Unspecified fracture of lower end of left ulna, subsequent encounter for closed fracture with routine healing; W00.0XXD Fall on same level due to ice and snow, subsequent encounter; J44.9 Chronic obstructive pulmonary disease, unspecified | CPT/HCPCS: 99212; 99213 ==

== ENCOUNTER → 2019-03-28 12:56 | Outpatient (BNVA) | payer MEDICARE, MEDICAID, SELFPAY | PROVIDERS: PCP Nurse Practitioner Family; Referring Provider Nurse Practitioner Family; Visit Provider Surgery | DX: R19.4 Change in bowel habit (principal); J44.9 Chronic obstructive pulmonary disease, unspecified | CPT/HCPCS: 99202; 99214 ==

== ENCOUNTER 2019-04-04 11:06 | Outpatient (REF) | payer MEDICARE, MEDICAID, SELFPAY ==
[2019-04-04 12:24] LABS: Anion Gap 9.5 mmol/L (3-11); BUN 25 mg/dL (7-18); CO2 31.5 mmol/L (21.0-32.0); CREATININE 1.19 mg/dL (0.55-1.02); Calcium 8.4 mg/dL (8.5-10.1); Chloride 103 mmol/L (98-107); Estimated GFR 46.43 (mL/min/1.73m2); Glucose 106 mg/dL (70-100); Potassium 3.4 mmol/L (3.5-5.1); Sodium 144 mmol/L (136-145)
== END 2019-04-04 11:26 ==
LOC: NCHCN 11:06
PROVIDERS: PCP Nurse Practitioner Family; Visit Provider Nurse Practitioner Family
DX: N28.9 Disorder of kidney and ureter, unspecified (principal); Z51.81 Encounter for therapeutic drug level monitoring
CPT/HCPCS: 80048

== ENCOUNTER 2019-04-10 00:21 | Outpatient (CLI) | payer MEDICARE, MEDICAID, SELFPAY ==
--- NOTE | 2019-04-10 15:45 | DI.MAMMO_ITS ---
SYMPTOM/DIAGNOSIS: SCREENING FOR BREAST CANCER Z12.39 BILATERAL SCREENING MAMMOGRAM: Mammograms were interpreted according to the usual protocol including computer analysis with CAD system, tomosynthesis and C view imaging. Comparison is made with exams from 2009 through 2017. The breasts are composed of scattered fibroglandular densities. Breast density category B. There are no suspicious masses or suspicious microcalcifications. There ashby been no significant change. IMPRESSION: Category 1, negative mammogram. Yearly screening mammography is recommended. Breast density category B. MQSA ASSESSMENT OF FINDINGS: Negative. Category 1. Patient will receive a letter notifying them of these results. BI-RADS category B. There are scattered areas of fibroglandular density.
== END 2019-04-10 00:41 ==
PROVIDERS: PCP Nurse Practitioner Family; Visit Provider Nurse Practitioner Family
DX: Z12.31 Encounter for screening mammogram for malignant neoplasm of breast (principal)
CPT/HCPCS: 77063; 77067

== ENCOUNTER 2019-05-20 12:10 | Outpatient (REF) | payer MEDICARE, MEDICAID, SELFPAY ==
[2019-05-20 19:10] LABS: Anion Gap 12.5 mmol/L (3-11); BUN 22 mg/dL (7-18); CO2 28.5 mmol/L (21.0-32.0); CREATININE 1.24 mg/dL (0.55-1.02); Calcium 8.4 mg/dL (8.5-10.1); Chloride 103 mmol/L (98-107); Estimated GFR 44.27 (mL/min/1.73m2); Glucose 86 mg/dL (70-100); Potassium 3.3 mmol/L (3.5-5.1); Sodium 144 mmol/L (136-145)
== END 2019-05-20 12:30 ==
LOC: NCHCN 12:10
PROVIDERS: PCP Nurse Practitioner Family; Visit Provider Nurse Practitioner Family
DX: N28.9 Disorder of kidney and ureter, unspecified (principal); R94.4 Abnormal results of kidney function studies; L27.0 Generalized skin eruption due to drugs and medicaments taken internally
CPT/HCPCS: 80048

== ENCOUNTER → 2019-06-27 14:16 | Outpatient (BNVA) | payer MEDICARE, MEDICAID, SELFPAY | PROVIDERS: PCP Nurse Practitioner Family; Referring Provider Nurse Practitioner Family; Visit Provider Physical Therapy Assistant | DX: Z87.19 Personal history of other diseases of the digestive system (principal); J44.9 Chronic obstructive pulmonary disease, unspecified | CPT/HCPCS: 99212 ==

== ENCOUNTER 2019-07-24 02:15 | Outpatient (CLI) | payer MEDICARE, MEDICAID, SELFPAY ==
--- NOTE | 2019-07-24 11:26 | DI.MRI_ITS ---
EXAM: MR CERVICAL SPINE WO CLINICAL HISTORY: BACK PAIN M54.9. TECHNIQUE: Multiplanar multisequence MRI was performed. COMPARISON: No exams were available for comparison FINDINGS: MR examination cervical region was performed according to the usual protocol. Images obtained throug h the posterior fossa are unremarkable. No significant bony signal abnormality seen. Mild prominenc e of the disc osteophyte complex noted at C 4 5, neural foramina are poorly visualized at this level and could be narrowed. However I cannot confirm neural foraminal narrowing at this level or other ce rvical levels. Spinal cord show versus normal dimensions and normal signal throughout. No central b dennys canal spinal stenosis. . IMPRESSION: Conclusion prominence of the disc osteophyte complex at C4-5 without focal disc herniation
== END 2019-07-24 02:35 ==
PROVIDERS: PCP Nurse Practitioner Family; Visit Provider Nurse Practitioner Family
DX: M54.2 Cervicalgia (principal); M50.221 Other cervical disc displacement at C4-C5 level; M25.78 Osteophyte, vertebrae
CPT/HCPCS: 72141

== ENCOUNTER 2019-07-25 00:27 | Outpatient (CLI) | payer MEDICARE, MEDICAID, SELFPAY ==
--- NOTE | 2019-07-25 11:49 | DI.MRI_ITS ---
EXAM: MR THORACIC SPINE WO CLINICAL HISTORY: BACK APIN M54.9. TECHNIQUE: Multiplanar multisequence MRI was performed. COMPARISON: LUMBAR SPINE COMPLETE from 04/17/2011 FINDINGS: Note is made of an old fusion T11 and T12 vertebral bodies with compression deformity T12, question c ongenital versus posttraumatic. Spinal canal appears intact throughout. No other significant bony a bnormality seen. Conus medullaris appears intact. No disc herniation identified. No neural foramin al stenosis identified in the thoracic region. IMPRESSION: Conclusion old deformity at T11-T12 of the vertebral bodies. No other significant findings. Spinal cord shows normal signal and normal diameter throughout
== END 2019-07-25 00:47 ==
PROVIDERS: PCP Nurse Practitioner Family; Visit Provider Nurse Practitioner Family
DX: M54.6 Pain in thoracic spine (principal); Z98.1 Arthrodesis status
CPT/HCPCS: 72146

== ENCOUNTER 2019-07-28 01:17 | Outpatient (CLI) | payer MEDICARE, MEDICAID, SELFPAY ==
--- NOTE | 2019-07-28 14:32 | DI.MRI_ITS ---
EXAM: MR LUMBAR SPINE WO CLINICAL HISTORY: BACK PAIN M54.9. TECHNIQUE: Multiplanar multisequence MRI was performed. COMPARISON: No exams were available for comparison FINDINGS: Note is made of an old deformity, possibly congenital versus post traumatic fusion of T11-T12 no sign ificant bony signal abnormality identified the lumbar region. There is loss of signal intervertebral discs at L 4 5 L5-S1. Moderate facet hypertrophic changes also most marked at L4-5 L5-S1. There is a moderate-sized broad-based disc herniation at L5-S1 most prominent centrally also extending into r ight and left lateral recesses. Neural foramina appear well maintained. Possible impingement on rig ht L5 nerve root and right or left S1 nerve. No additional disc herniation identified in the lumbar region. No bony central canal spinal stenosis seen. No significant neural foraminal narrowing seen. IMPRESSION: L5-S1 disc herniation as described above. Neural impingement may be present either on the right or l eft as described above.
== END 2019-07-28 01:37 ==
PROVIDERS: PCP Nurse Practitioner Family; Visit Provider Nurse Practitioner Family
DX: M54.5 Low back pain (principal); M51.16 Intervertebral disc disorders with radiculopathy, lumbar region; M47.27 Other spondylosis with radiculopathy, lumbosacral region
CPT/HCPCS: 72148

== ENCOUNTER 2019-09-11 15:31 | Emergency (ER) | payer MEDICARE, MEDICAID, SELFPAY ==
[2019-09-11 15:42] VITALS: BP 158/93; PULSE 79; RESP 16; TEMP 36.6; O2SAT 100
--- NOTE | 2019-09-11 15:56 | DI.RAD_ITS ---
EXAM: XR LUMBAR SPINE COMPLETE INDICATION: lower back pain. COMPARISON: LUMBAR SPINE COMPLETE from 04/17/2011 TECHNIQUE: 2D digital imaging was performed. FINDINGS: There are 5 lumbar type vertebral bodies. There is normal alignment. No spondylolysis or spondyloli sthesis is present. There are mild degenerative changes in the lumbar spine. The findings are most marked at the L5-S1 disc space. There is a linear area of sclerosis paralleling the superior endplate of L1 suspicious for a nondispl aced fracture. Chronic deformity of the T12 vertebral body is again noted. IMPRESSION: Linear area of sclerosis paralleling the superior endplate of L1 anteriorly. This may represent a no ndisplaced fracture. CT or MRI scan of L1 is recommended for further evaluation. The findings were discussed with Dr. Alvares of the emergency department on 09/12/2019.
--- NOTE | 2019-09-11 15:57 | ED.GENADUL_ITS ---
Discharge Plan Disposition Patient Disposition: HOME Condition: Stable Discharge Details Chief Complaint: Nk/Back Pain Clinical Impression: Lower back pain Primary Care Provider: Marko uDffy ED Provider: Enrique Alvares Home Meds and New Rx's Prescriptions: New cyclobenzaprine 10 mg tablet 10 mg PO TID PRN (Reason: muscle spasm) Qty: 20 RF: 0 Continued atorvastatin 20 mg tablet 20 mg PO DAILY RF: 0 bisacodyl [Dulcolax (bisacodyl)] 5 mg tablet,delayed release (DR/EC) 5 mg PO ONCE Qty: 4 RF: 0 polyethylene glycol 3350 17 gram powder in packet 255 g PO DAILY Qty: 15 RF: 0 bisacodyl [Dulcolax (bisacodyl)] 5 mg tablet,delayed release (DR/EC) 5 mg PO ONCE Qty: 4 RF: 0 polyethylene glycol 3350 17 gram powder in packet 255 g PO DAILY Qty: 15 RF: 0 Lidocaine Pain Relief 4 % adhesive patch,medicated 1 patch TP BID RF: 0 hydrochlorothiazide 25 mg tablet 25 mg PO DAILY RF: 0 prochlorperazine maleate 10 mg Tablet 10 mg PO Q6H PRNRF: 0 aspirin 500 mg tablet 500 mg PO DAILY RF: 0 diclofenac sodium 1 % gel 4 gm TP QID PRN (Reason: back pain) 6 Days Qty: 100 RF: 11 acetaminophen 500 mg capsule 1,000 mg PO Q8H PRN (Reason: pain) Qty: 90 RF: 6 multivitamin Capsule 1 cap PO DAILY RF: 0 Sudafed PE 10 mg Tablet 10 mg PO PRN PRNRF: 0 Calcium 600 + Minerals 600 mg calcium- 200 unit Tablet 1 tab PO DAILY RF: 0 Cbd Oil 1 drp PO HS RF: 0 atenolol 100 MG tablet 100 mg PO DAILY RF: 0 esomeprazole magnesium [Nexium] 40 MG capsule,delayed release(DR/EC) 40 mg PO DAILY RF: 0 Zyrtec 10 mg Capsule 10 mg PO DAILY RF: 0 fluticasone propion-salmeterol [Advair Diskus] 100-50 mcg/dose Blister With Device 1 puff Inhalation DAILY PRNRF: 0 fluticasone propionate [Flonase Allergy Relief] 50 mcg/actuation [place],Suspension 100 mcg Intranasal PRN PRNRF: 0 levalbuterol tartrate [Xopenex HFA] 45 mcg/actuation Hfa Aerosol Inhaler 2 puff Inhalation TID PRNRF: 0 tizanidine [Zanaflex] 2 mg Capsule 2 mg PO PRN PRNRF: 0 Discharge Instructions Instructions: Low Back Strain (ED) Additional Instructions: follow up with your primary care provider within 1 week if you have severe worsening pain, fevers or difficulty urinating return to the emergency department Medical Decision Making 59 yo female with hx of chronic back pain comes in with right lower back pain. denies any falls or trauma. She states this started when she was coming out of pool therapy walking up the steps. Denies fevers, chills, abd pain, difficulty urinating or weakness. Has pain with palpation on the right lower lumbar region, no midline pain erythema or warmth. Has no saddle anesthesia. I suspect muscle spasm vs strain but will obtian xray toe tra for possible compression fx. Has no findings on history or physical to suggest cauda equina, sea or other spinal cord pathology. No abodminal tenderness do doubt intrabdominal surgical pat hology xray unremarkable and she feels better, ambulating at her baseline with cane. Still no saddle anesthesia and normal reflexes. Will d/c and advised f/u with pcp and return precautions given Differential Diagnosis Differential Diagnosis: spasm, strain, compression fx Imaging Data Radiologic Study: Attestation: I personally reviewed and interpreted this imaging study as follows: Imaging: X-Ray Radiologist's impression: IMPRESSION: Degenerative disease at L5-S1. Compression of T12, age is old. Diffuse facet arthrosis. HPI General Mode of arrival: ambulatory . Date/Time Provider Initiated Documentation: 09/11/19 15:41 . Limitations to Documentation: no limitations . Information obtained by: patient . History of Present Illness 59 year old F presents to the emergency department with the chief complaint of right lower back pain, described as moderate, Quality is described as aching, Patient reports no radiation. Patient started experiencing this hour(s) (4) and it has been constant. No relieving factors improve symptom(s), No exacerbating factors reported . Patient notes no other symptoms.. Related Data Home Medications Medication Instructions Recorded Confirmed atenolol 100 mg PO DAILY 05/10/14 08/11/19 esomeprazole magnesium [Nexium] 40 mg PO DAILY 05/10/14 09/11/19 fluticasone propion-salmeterol 1 puff INHALATION DAILY PRN 10/16/18 09/11/19 [Advair Diskus] fluticasone propionate [Flonase 100 mcg INTRANASAL PRN PRN 10/16/18 09/11/19 Allergy Relief] levalbuterol tartrate [Xopenex HFA] 2 puff INHALATION TID PRN 10/16/18 09/11/19 tizanidine [Zanaflex] 2 mg PO PRN PRN 10/16/18 09/11/19 Zyrtec 10 mg PO DAILY 10/21/18 09/11/19 acetaminophen 500 mg capsule 1,000 mg PO Q8H PRN #90 cap 12/23/18 09/11/19 atorvastatin 20 mg tablet 20 mg PO DAILY 01/29/19 09/11/19 hydrochlorothiazide 25 mg tablet 25 mg PO DAILY 03/24/19 09/11/19 lidocaine 4 % topical patch 1 patch TP BID 03/24/19 09/11/19 bisacodyl 5 mg tablet,delayed 5 mg PO ONCE #4 tab 03/28/19 09/11/19 release bisacodyl 5 mg tablet,delayed 5 mg PO ONCE #4 tab 03/28/19 09/11/19 release polyethylene glycol 3350 17 gram 255 g PO DAILY #15 each 03/28/19 09/11/19 oral powder packet polyethylene glycol 3350 17 gram 255 g PO DAILY #15 each 03/28/19 09/11/19 oral powder packet Calcium 600 + Minerals 1 tab PO DAILY 06/27/19 09/11/19 Cbd Oil 1 drp PO HS 06/27/19 09/11/19 Sudafed PE 10 mg PO PRN PRN 06/27/19 09/11/19 multivitamin 1 cap PO DAILY 06/27/19 09/11/19 prochlorperazine maleate 10 mg PO Q6H PRN 08/06/19 08/06/19 aspirin 500 mg tablet 500 mg PO DAILY tab 08/11/19 09/11/19 diclofenac sodium 1 % topical gel 4 gm TP QID PRN 6 Days #100 gm 08/11/19 09/11/19 cyclobenzaprine 10 mg PO TID PRN #20 tab 09/11/19 Previous Rx's Medication Instructions Recorded acetaminophen 500 mg capsule 1,000 mg PO Q8H PRN #90 cap 12/23/18 bisacodyl 5 mg tablet,delayed 5 mg PO ONCE #4 tab 03/28/19 release bisacodyl 5 mg tablet,delayed 5 mg PO ONCE #4 tab 03/28/19 release polyethylene glycol 3350 17 gram 255 g PO DAILY #15 each 03/28/19 oral powder packet polyethylene glycol 3350 17 gram 255 g PO DAILY #15 each 03/28/19 oral powder packet diclofenac sodium 1 % topical gel 4 gm TP QID PRN 6 Days #100 gm 08/11/19 cyclobenzaprine 10 mg PO TID PRN #20 tab 09/11/19 Allergies Allergy/AdvReac Type Severity Reaction Status Date / Time Sulfa (Sulfonamide Allergy Severe Skin Rash Unverified 09/11/19 15:46 Antibiotics) aspirin Allergy Unknown Unverified 09/11/19 15:46 sertraline [From Zoloft] Allergy Unknown Unverified 09/11/19 15:46 hydrochlorothiazide AdvReac Intermediate nausea, Unverified 09/11/19 15:46 dizzy oxycodone HCl [From Roxicet] AdvReac Intermediate Itching Unverified 09/11/19 15:46 trazodone AdvReac Intermediate vertigo Unverified 09/11/19 15:46 General Stated Complaint: Nk/Back Pain NEO: 4 Review of Systems All systems reviewed & are unremarkable except as noted in HPI and below Constitutional Constitutional: Denies chills, Denies fever(s) and Denies weakness ENT Ears, Nose, Mouth, and Throat: Denies change in voice Cardiovascular Cardiovascular: Denies chest pain and Denies dyspnea Respiratory Respiratory: Denies cough and Denies dyspnea Gastrointestinal Gastrointestinal: Denies abdominal pain, Denies nausea and Denies vomiting Genitourinary Genitourinary: Denies dysuria Musculoskeletal Musculoskeletal: Denies joint swelling Integumentary/Breasts Skin/Breast: Denies rash Neurologic Neurologic: Denies weakness PFSH Family History (Updated 06/27/19 @ 13:20 by Frannie Post RN) Other Cancer Diabetes Heart disease Social History Smoking/Tobacco Use Status: Never Alcohol Intake: never Drug use: Never Do you feel safe at home: Yes Do you feel safe in your relationship?: Yes Exam Const General: no acute distress Orientation: alert HENMT Head: normal to inspection Ears: external ears normal General nose exam: external nose normal Mouth: moist mucous membranes Eyes General: appearance normal, both eyes and all related structures Neck Neck: normal visual inspection Resp Effort & Inspection: normal respiratory effort and able to speak in complete sen tences Cardio Rate: regular rate Back/Spine/Pelvis Back: no CVA tenderness Skin General skin exam: no rashes or lesions noted Neuro General: alert and oriented x3 Extrem General: normal to inspection Psych Mental Status: mental status grossly normal Course Vital Signs Vital signs: Vital Signs Temperature 36.6 C 09/11/19 15:42 Pulse 79 09/11/19 15:42 Respiratory Rate 16 09/11/19 15:42 Blood Pressure 158/93 H 09/11/19 15:42 Pulse Oximetry 100 09/11/19 15:42 Temperature 36.6 C 09/11/19 15:42 Temperature Source Skin 09/11/19 15:42 Pulse 79 09/11/19 15:42 Respiratory Rate 16 09/11/19 15:42 Respiratory Effort Non-Labored 09/11/19 15:42 Blood Pressure 158/93 H 09/11/19 15:42 Blood Pressure Position Sitting 09/11/19 15:42 Pulse Oximetry 100 09/11/19 15:42 Oxygen Delivery Method Room Air 09/11/19 15:42 Oxygen Flow Rate 0 09/11/19 15:42 Pain Level 8 09/11/19 15:42
[2019-09-11] MEDS: Cyclobenzaprine 10 MG TAB PO (16:02)
--- NOTE | 2019-09-11 16:28 | DI.VRAD_ITS ---
PROCEDURE INFORMATION: Exam: XR Lumbosacral Spine, 4 or 5 Views Exam date and time: 09/11/2019 4:20 PM Age: 59 years old Clinical history: Low back pain; Patient HX: Lower back pain TECHNIQUE: Imaging protocol: XR of the lumbosacral spine, 4 or 5 views. COMPARISON: CR LUMBAR SPINE COMPLETE 07/21/2016 2:39 PM FINDINGS: Vertebrae: Degenerative disease at L5-S1. Compression of T12, age is old. Diffuse facet arthrosis. Gallbladder is removed. Soft tissues: Normal. IMPRESSION: Degenerative disease at L5-S1. Compression of T12, age is old. Diffuse facet arthrosis. Dictated and Authenticated by: Jessi Sarah MD. Ordering:GIO Nunez MD
--- NOTE | 2019-09-11 17:15 | NUR.NOTE ---
Nursing Note: Referral faxed to PCP for follow up. Jaylene Vu.
--- NOTE | 2019-09-12 10:45 | ED.GENADUL_ITS ---
Discharge Plan Disposition Patient Disposition: HOME Condition: Stable Discharge Details Chief Complaint: Nk/Back Pain Clinical Impression: Lower back pain Primary Care Provider: Marko Duffy ED Provider: Enrique Alvares Home Meds and New Rx's Prescriptions: New cyclobenzaprine 10 mg tablet 10 mg PO TID PRN (Reason: muscle spasm) Qty: 20 RF: 0 hydrocodone-acetaminophen 5-300 mg tablet 1 tab PO TID PRN (Reason: pain) Qty: 12 RF: 0 Continued atorvastatin 20 mg tablet 20 mg PO DAILY RF: 0 bisacodyl [Dulcolax (bisacodyl)] 5 mg tablet,delayed release (DR/EC) 5 mg PO ONCE Qty: 4 RF: 0 polyethylene glycol 3350 17 gram powder in packet 255 g PO DAILY Qty: 15 RF: 0 bisacodyl [Dulcolax (bisacodyl)] 5 mg tablet,delayed release (DR/EC) 5 mg PO ONCE Qty: 4 RF: 0 polyethylene glycol 3350 17 gram powder in packet 255 g PO DAILY Qty: 15 RF: 0 Lidocaine Pain Relief 4 % adhesive patch,medicated 1 patch TP BID RF: 0 hydrochlorothiazide 25 mg tablet 25 mg PO DAILY RF: 0 prochlorperazine maleate 10 mg Tablet 10 mg PO Q6H PRNRF: 0 aspirin 500 mg tablet 500 mg PO DAILY RF: 0 diclofenac sodium 1 % gel 4 gm TP QID PRN (Reason: back pain) 6 Days Qty: 100 RF: 11 acetaminophen 500 mg capsule 1,000 mg PO Q8H PRN (Reason: pain) Qty: 90 RF: 6 multivitamin Capsule 1 cap PO DAILY RF: 0 Sudafed PE 10 mg Tablet 10 mg PO PRN PRNRF: 0 Calcium 600 + Minerals 600 mg calcium- 200 unit Tablet 1 tab PO DAILY RF: 0 Cbd Oil 1 drp PO HS RF: 0 atenolol 100 MG tablet 100 mg PO DAILY RF: 0 esomeprazole magnesium [Nexium] 40 MG capsule,delayed release(DR/EC) 40 mg PO DAILY RF: 0 Zyrtec 10 mg Capsule 10 mg PO DAILY RF: 0 fluticasone propion-salmeterol [Advair Diskus] 100-50 mcg/dose Blister With Device 1 puff Inhalation DAILY PRNRF: 0 fluticasone propionate [Flonase Allergy Relief] 50 mcg/actuation [place],Suspension 100 mcg Intranasal PRN PRNRF: 0 levalbuterol tartrate [Xopenex HFA] 45 mcg/actuation Hfa Aerosol Inhaler 2 puff Inhalation TID PRNRF: 0 tizanidine [Zanaflex] 2 mg Capsule 2 mg PO PRN PRNRF: 0 Discharge Instructions Instructions: Low Back Strain (ED) Additional Instructions: follow up with your primary care provider within 1 week if you have severe worsening pain, fevers or difficulty urinating return to the emergency department Discharge Data Discharge Date/Time-TO BE ENTERED AT DEPARTURE: 09/11/19 17:[address] Frederick over read the xray and there is a lucency in L1 that could represent nondisplaced compression fx. I called and spoke with the patient and expalined the results and given even if it was a fx no surgery indicated she doesn't want to have a CT. She is interested in stronger pain meds as muscle relaxer isn't helping that much. Will start short course of opiates and advised stop the muscl e relaxer and she understands to f/u with pcp and return precautions given HPI General Mode of arrival: ambulatory . Date/Time Provider Initiated Documentation: 09/11/19 15:41 . Limitations to Documentation: no limitations . Information obtained by: patient . History of Present Illness Quality is described as aching, No relieving factors improve symptom(s), No exacerbating factors reported . Patient notes no other symptoms.. Related Data Home Medications Medication Instructions Recorded Confirmed atenolol 100 mg PO DAILY 05/10/14 08/11/19 esomeprazole magnesium [Nexium] 40 mg PO DAILY 05/10/14 09/11/19 fluticasone propion-salmeterol 1 puff INHALATION DAILY PRN 10/16/18 09/11/19 [Advair Diskus] fluticasone propionate [Flonase 100 mcg INTRANASAL PRN PRN 10/16/18 09/11/19 Allergy Relief] levalbuterol tartrate [Xopenex HFA] 2 puff INHALATION TID PRN 10/16/18 09/11/19 tizanidine [Zanaflex] 2 mg PO PRN PRN 10/16/18 09/11/19 Zyrtec 10 mg PO DAILY 10/21/18 09/11/19 acetaminophen 500 mg capsule 1,000 mg PO Q8H PRN #90 cap 12/23/18 09/11/19 atorvastatin 20 mg tablet 20 mg PO DAILY 01/29/19 09/11/19 hydrochlorothiazide 25 mg tablet 25 mg PO DAILY 03/24/19 09/11/19 lidocaine 4 % topical patch 1 patch TP BID 03/24/19 09/11/19 bisacodyl 5 mg tablet,delayed 5 mg PO ONCE #4 tab 03/28/19 09/11/19 release bisacodyl 5 mg tablet,delayed 5 mg PO ONCE #4 tab 03/28/19 09/11/19 release polyethylene glycol 3350 17 gram 255 g PO DAILY #15 each 03/28/19 09/11/19 oral powder packet polyethylene glycol 3350 17 gram 255 g PO DAILY #15 each 03/28/19 09/11/19 oral powder packet Calcium 600 + Minerals 1 tab PO DAILY 06/27/19 09/11/19 Cbd Oil 1 drp PO HS 06/27/19 09/11/19 Sudafed PE 10 mg PO PRN PRN 06/27/19 09/11/19 multivitamin 1 cap PO DAILY 06/27/19 09/11/19 prochlorperazine maleate 10 mg PO Q6H PRN 08/06/19 08/06/19 aspirin 500 mg tablet 500 mg PO DAILY tab 08/11/19 09/11/19 diclofenac sodium 1 % topical gel 4 gm TP QID PRN 6 Days #100 gm 08/11/19 09/11/19 cyclobenzaprine 10 mg PO TID PRN #20 tab 09/11/19 hydrocodone-acetaminophen 1 tab PO TID PRN #12 tab 09/12/19 Previous Rx's Medication Instructions Recorded acetaminophen 500 mg capsule 1,000 mg PO Q8H PRN #90 cap 12/23/18 bisacodyl 5 mg tablet,delayed 5 mg PO ONCE #4 tab 03/28/19 release bisacodyl 5 mg tablet,delayed 5 mg PO ONCE #4 tab 03/28/19 release polyethylene glycol 3350 17 gram 255 g PO DAILY #15 each 03/28/19 oral powder packet polyethylene glycol 3350 17 gram 255 g PO DAILY #15 each 03/28/19 oral powder packet diclofenac sodium 1 % topical gel 4 gm TP QID PRN 6 Days #100 gm 08/11/19 cyclobenzaprine 10 mg PO TID PRN #20 tab 09/11/19 hydrocodone-acetaminophen 1 tab PO TID PRN #12 tab 09/12/19 Allergies Allergy/AdvReac Type Severity Reaction Status Date / Time Sulfa (Sulfonamide Allergy Severe Skin Rash Unverified 09/11/19 15:46 Antibiotics) aspirin Allergy Unknown Unverified 09/11/19 15:46 sertraline [From Zoloft] Allergy Unknown Unverified 09/11/19 15:46 hydrochlorothiazide AdvReac Intermediate nausea, Unverified 09/11/19 15:46 dizzy oxycodone HCl [From Roxicet] AdvReac Intermediate Itching Unverified 09/11/19 15:46 trazodone AdvReac Intermediate vertigo Unverified 09/11/19 15:46 General Stated Complaint: Nk/Back Pain NEO: 4 PFSH Family History (Updated 06/27/19 @ 13:20 by Frannie Post RN) Other Cancer Diabetes Heart disease Social History Smoking/Tobacco Use Status: Never Alcohol Intake: never Drug use: Never Do you feel safe at home: Yes Do you feel safe in your relationship?: Yes Course Vital Signs Vital signs: Vital Signs Temperature 36.6 C 09/11/19 15:42 Pulse 79 09/11/19 15:42 Respiratory Rate 16 09/11/19 15:42 Blood Pressure 158/93 H 09/11/19 15:42 Pulse Oximetry 100 09/11/19 15:42 Temperature 36.6 C 09/11/19 15:42 Temperature Source Skin 09/11/19 15:42 Pulse 79 09/11/19 15:42 Respiratory Rate 16 09/11/19 15:42 Respiratory Effort Non-Labored 09/11/19 15:42 Blood Pressure 158/93 H 09/11/19 15:42 Blood Pressure Position Sitting 09/11/19 15:42 Pulse Oximetry 100 09/11/19 15:42 Oxygen Delivery Method Room Air 09/11/19 15:42 Oxygen Flow Rate 0 09/11/19 15:42 Pain Level 6 09/11/19 17:00
--- NOTE | 2019-09-12 17:14 | W.ED.FU ---
pharmacy didn't have the hydrocodone/tylenol that was 300mg so pt was given a new script with 325mg tylenol in it
== END 2019-09-11 17:11 | disposition home or self-care (01) ==
PROVIDERS: Emergency Provider Emergency Medicine; PCP Nurse Practitioner Family
DX: M54.5 Low back pain (principal)
CPT/HCPCS: 99283; 72110

== ENCOUNTER 2019-11-12 01:18 | Outpatient (CLI) | payer MEDICARE, MEDICAID, SELFPAY ==
--- NOTE | 2019-11-12 16:42 | DI.DEXA_ITS ---
EXAM: XR DEXA BONE DENSITY W/WO [place] INDICATION: OSTEOPOROSIS M81.0, HX VERTEBRAL STRESS FX Z87.312. COMPARISON: XR LUMBAR SPINE COMPLETE from 09/11/2019 TECHNIQUE: 2D digital imaging was performed. FINDINGS: Lateral image of the spine appears stable. There is an old compression deformity of T12. Evaluation of the left hip shows a total T-score of -1.7 and a Z-score of -0.7. This is consistent w ith osteopenia and an increased fracture risk. This compares with a total T-score of -1.8 from 2004. Evaluation of the lumbar spine shows a total T-score of -2.9 and a Z-score of -1.5. This is consiste nt with osteoporosis and a high fracture risk. This compares with a total T-score of -2.0 from 2004. IMPRESSION: Osteoporosis in the lumbar spine.
== END 2019-11-12 01:38 ==
PROVIDERS: PCP Nurse Practitioner Family; Visit Provider Nurse Practitioner Family
DX: M81.0 Age-related osteoporosis without current pathological fracture (principal); M85.88 Other specified disorders of bone density and structure, other site; Z87.312 Personal history of (healed) stress fracture
CPT/HCPCS: 77080

== ENCOUNTER 2019-11-19 11:07 | Outpatient (CLI) | payer MEDICARE, MEDICAID, SELFPAY ==
[2019-11-19 15:34] LABS: ALT 46 U/L (14-59); AST 24 U/L (15-37); Albumin 3.8 g/dL (3.4-5.0); Alkaline Phosphatase 156 U/L (46-116); Anion Gap 10.4 mmol/L (3-11); BUN 24 mg/dL (7-18); Bilirubin, Total 0.5 mg/dL (0.2-1.0); CO2 29.6 mmol/L (21.0-32.0); CREATININE 1.33 mg/dL (0.55-1.02); Calcium 8.2 mg/dL (8.5-10.1); Chloride 103 mmol/L (98-107); Estimated GFR 40.84 (mL/min/1.73m2); Glucose 118 mg/dL (74-106); PHOSPHORUS 3.1 mg/dL (2.6-4.7); Sodium 143 mmol/L (136-145)
[2019-11-19 15:38] LABS: Potassium 2.9 mmol/L (3.5-5.1)
[2019-11-20 04:49] LABS: Vitamin D 25 Total 37.6 ng/ml (30-100)
[2019-11-20 10:37] LABS: Parathyroid Hormone,Intact 116 pg/mL (19-88)
[2019-11-21 12:40] LABS: IgA 108 mg/dL (85-499); Tissue Transglutaminase IgA <1.2 U/mL (<4.0)
== END 2019-11-19 11:27 ==
PROVIDERS: PCP Nurse Practitioner Family; Visit Provider Nurse Practitioner Family
DX: M81.0 Age-related osteoporosis without current pathological fracture (principal)
CPT/HCPCS: 36415; 80053; 82306; 82784; 83516; 82728; 83970; 84100; 84443

== ENCOUNTER 2019-11-21 01:57 | Outpatient (CLI) | payer MEDICARE, MEDICAID, SELFPAY ==
--- NOTE | 2019-11-21 14:54 | DI.US_ITS ---
EXAM: US RENAL CLINICAL HISTORY: CHRONIC KIDNEY DISEASE N18.9, ASSESS RENAL STRUCTURE IN SETTING TECHNIQUE: Ultrasound performed using standard protocol. COMPARISON: US OR ANESTHESIA from 10/24/2018 FINDINGS: Kidneys are normal in size and shape and there is no evidence of a renal mass, hydronephrosis, or nep hrolithiasis. Urinary bladder is essentially empty. IMPRESSION: Negative renal ultrasound.
== END 2019-11-21 02:17 ==
PROVIDERS: PCP Nurse Practitioner Family; Visit Provider Internal Medicine
DX: N18.9 Chronic kidney disease, unspecified (principal)
CPT/HCPCS: 76770

== ENCOUNTER 2019-11-24 11:09 | Outpatient (REF) | payer MEDICARE, MEDICAID, SELFPAY ==
[2019-11-24 18:38] LABS: Anion Gap 10.9 mmol/L (3-11); BUN 23 mg/dL (7-18); CO2 26.1 mmol/L (21.0-32.0); CREATININE 1.15 mg/dL (0.55-1.02); Calcium 8.1 mg/dL (8.5-10.1); Chloride 106 mmol/L (98-107); Ferritin 14 ng/mL (8-252); Glucose 141 mg/dL (74-106); Magnesium 1.2 mg/dL (1.8-2.4); Potassium 3.8 mmol/L (3.5-5.1); Sodium 143 mmol/L (136-145); TSH (W/Ref FT4) 5.84 uIU/mL (0.36-3.74)
[2019-11-24 18:56] LABS: FREE T4 0.94 ng/dL (0.76-1.46)
== END 2019-11-24 11:29 ==
LOC: NCHCN 11:09
PROVIDERS: PCP Nurse Practitioner Family; Visit Provider Nurse Practitioner Family
DX: I10 Essential (primary) hypertension (principal); E87.6 Hypokalemia; N28.9 Disorder of kidney and ureter, unspecified; R78.89 Finding of other specified substances, not normally found in blood; R94.4 Abnormal results of kidney function studies; R53.83 Other fatigue
CPT/HCPCS: 80048; 82728; 83735; 84439; 84443

== ENCOUNTER 2019-11-24 11:26 | Outpatient (CLI) | payer MEDICARE, MEDICAID, SELFPAY ==
--- NOTE | 2019-11-24 12:01 | DI.RAD_ITS ---
EXAM: XR KNEE RT 3V AP,LAT,CHITO INDICATION: RT KNEE PAIN, M25.561. COMPARISON: No exams were available for comparison TECHNIQUE: 2D digital imaging was performed. FINDINGS: There are 2 orthopedic screws seen in the lateral tibial plateau. There is deformity of the lateral tibial plateau suspicious for a fracture. The acuity is indeterminate. Please correlate with the pa tient's past surgical and traumatic history. Mild degenerative changes are present in the knee. The re is a small joint effusion. The soft tissues are otherwise unremarkable. IMPRESSION: Deformity of the lateral tibial plateau suspicious for fracture. This is of indeterminate acuity. P lease correlate with the patient's past medical history. Two orthopedic screws are seen within the l ateral tibial plateau.
== END 2019-11-24 11:46 ==
PROVIDERS: PCP Nurse Practitioner Family; Visit Provider Nurse Practitioner Family
DX: M25.561 Pain in right knee (principal); M17.11 Unilateral primary osteoarthritis, right knee; M25.461 Effusion, right knee; M21.861 Other specified acquired deformities of right lower leg
CPT/HCPCS: 73562

== ENCOUNTER → 2019-12-10 09:20 | Outpatient (BNVA) | payer MEDICARE, MEDICAID, SELFPAY | PROVIDERS: PCP Nurse Practitioner Family; Referring Provider Nurse Practitioner Family; Visit Provider Orthopaedic Surgery | DX: M17.11 Unilateral primary osteoarthritis, right knee (principal); W00.0XXA Fall on same level due to ice and snow, initial encounter; Z87.81 Personal history of (healed) traumatic fracture | CPT/HCPCS: 99201; 99213 ==

== ENCOUNTER 2020-07-01 20:03 | Outpatient (REF) | payer MEDICARE, MEDICAID, SELFPAY ==
[2020-07-01 21:14] LABS: BUN 23 mg/dL (7-18); CREATININE 1.21 mg/dL (0.55-1.02); Calcium 8.8 mg/dL (8.5-10.1); Chloride 106 mmol/L (98-107); Estimated GFR 45.39 (mL/min/1.73m2); Glucose 87 mg/dL (74-106); Magnesium 1.7 mg/dL (1.8-2.4); Potassium 3.9 mmol/L (3.5-5.1); Sodium 143 mmol/L (136-145); TSH (W/Ref FT4) 1.73 uIU/mL (0.36-3.74)
== END 2020-07-01 20:23 ==
LOC: NCHCN 20:03
PROVIDERS: PCP Nurse Practitioner Family; Visit Provider Nurse Practitioner Family
DX: E87.6 Hypokalemia (principal); N28.9 Disorder of kidney and ureter, unspecified; I10 Essential (primary) hypertension
CPT/HCPCS: 80048; 83735; 84443

== ENCOUNTER 2020-08-17 16:46 | Emergency (ER) | payer MEDICARE, MEDICAID, SELFPAY ==
[2020-08-17] VITALS (14 sets, daily range): BP systolic 128–171; BP diastolic 69–101; PULSE 64–80; RESP 14–29; TEMP 37; O2SAT 98–100
--- NOTE | 2020-08-17 17:44 | ED.GENADUL_ITS ---
Discharge Plan Disposition Patient Disposition: HOME Condition: Stable Discharge Details Clinical Impression: Allergic reaction Primary Care Provider: Marko Duffy ED Provider: Iban Hardy Home Meds and New Rx's Prescriptions: New prednisone 20 mg tablet 40 mg PO DAILY 5 Days Qty: 10 RF: 0 Continued atorvastatin 20 mg tablet 20 mg PO HS RF: 0 prochlorperazine maleate 10 mg tablet 5 mg PO Q6H PRNRF: 0 potassium chloride 20 mEq tablet extended release 20 meq PO BID RF: 0 capsaicin 0.025 % cream 1 applic TP TID RF: 0 prednisone 5 mg tablet 5 mg PO DAILY Qty: 30 RF: 1 colesevelam [WelChol] 625 mg tablet 1,875 mg PO DAILY RF: 0 acetaminophen 500 mg capsule 1,000 mg PO Q8H PRN (Reason: pain) Qty: 90 RF: 6 multivitamin Capsule 1 cap PO DAILY RF: 0 Sudafed PE 10 mg Tablet 10 mg PO PRN PRNRF: 0 Calcium 600 + Minerals 600 mg calcium- 200 unit Tablet 1 tab PO DAILY RF: 0 Cbd Oil 1 drp PO HS RF: 0 atenolol 100 MG tablet 100 mg PO DAILY RF: 0 esomeprazole magnesium [Nexium] 40 MG capsule,delayed release(DR/EC) 40 mg PO DAILY RF: 0 Zyrtec 10 mg Capsule 10 mg PO DAILY RF: 0 fluticasone propionate [Flonase Allergy Relief] 50 mcg/actuation [place],Suspension 100 mcg Intranasal PRN PRNRF: 0 levalbuterol tartrate [Xopenex HFA] 45 mcg/actuation Hfa Aerosol Inhaler 2 puff Inhalation TID PRNRF: 0 fluticasone propion-salmeterol [Advair Diskus] 100-50 mcg/dose blister with device 1 puff Inhalation BID PRNRF: 0 Discharge Instructions Instructions: General Allergic Reaction (ED) Additional Instructions: Prednisone as directed. You may continue taking [id number] Benadryl as directed. Please keep a log of your food and try to be aware of any environmental exposures or changes. Please watch for new or worsening symptoms and return to the ER for any concerns. I strongly recommend that you reach out to your primary care provider tomorrow for prompt outpatient reevaluation. Referral to import/export specialist is likely indicated for your ongoing symptoms. Discharge Data Discharge Date/Time-TO BE ENTERED AT DEPARTURE: 08/17/20 18:35 Medical Decision Making 60-year-old female reports itchy rash intermittent for nearly 9 months. No obvious exposure. 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 Clinically she appears well, nontoxic. No signs of cellulitis. No signs of systemic reaction, angioedema, respiratory compromise, etc. She has been taking Benadryl with mild relief. Explained to her that currently she appears well, nontoxic, no systemic reaction. Given she is already been using first-line therapy such as antihistamine we could certainly add on a burst dose of steroids, 60 mg now and I can give her a prescription for the next 5 days. I explained to her the importance of primary care follow-up for her ongoing symptoms and likely referral to an import/export specialist given the grinder mill operator did not really appreciate a rash or find a clear diagnosis. She is comfortable with this plan and has no additional questions or concerns. She was encouraged to return to the ER for new or worsening symptoms. Medical Records Medical records reviewed: Yes I reviewed the patient's medical records. HPI General Mode of arrival: ambulatory . Date/Time Provider Initiated Documentation: 08/17/20 16:49 . Limitations to Documentation: no limitations . Information obtained by: patient . HPI Narrative: This is a 60-year-old female with past medical history that includes allergic rhinitis, anxiety depression, asthma, chronic pain, COPD, GERD, hypertension, opioid dependence in remission, PTSD, presenting for a rash that has been intermittent for at least 8-9 months. She reports that she has been seen by her primary care provider twice, a grinder mill operator, and has been taking [id number] Benadryl. She states that the grinder mill operator did not actually see a rash and at the time her symptoms had been improving. She denies any obvious known environmental exposure, new foods or medications. Back in December when this all began they did do some medication changes but that did not change her symptoms. She states that over the last couple of days she feels as though her eyes are watery, itching, her neck feels swollen on the outside, and there is a mild rash. She states that there was a rash on her arms as well but that seems to have gotten better with the Benadryl. She denies any pain, just itching. Denies any wheezing, tongue or mouth swelling, difficulty speaking or breathing. Through all of this she has not seen an import/export specialist. Related Data Home Medications Medication Instructions Recorded Confirmed atenolol 100 mg PO DAILY 05/10/14 08/11/19 esomeprazole magnesium [Nexium] 40 mg PO DAILY 05/10/14 09/11/19 fluticasone propionate [Flonase 100 mcg INTRANASAL PRN PRN 10/16/18 09/11/19 Allergy Relief] levalbuterol tartrate [Xopenex HFA] 2 puff INHALATION TID PRN 10/16/18 09/11/19 Zyrtec 10 mg PO DAILY 10/21/18 09/11/19 acetaminophen 500 mg capsule 1,000 mg PO Q8H PRN #90 cap 12/23/18 09/11/19 Calcium 600 + Minerals 1 tab PO DAILY 06/27/19 09/11/19 Cbd Oil 1 drp PO HS 06/27/19 09/11/19 Sudafed PE 10 mg PO PRN PRN 06/27/19 09/11/19 multivitamin 1 cap PO DAILY 06/27/19 09/11/19 atorvastatin 20 mg tablet 20 mg PO HS tab 12/10/19 12/10/19 capsaicin 0.025 % topical cream 1 applic TP TID 12/10/19 12/10/19 colesevelam 625 mg tablet 1,875 mg PO DAILY tab 12/10/19 12/10/19 fluticasone 100 mcg-salmeterol 50 1 puff INHALATION BID PRN each 12/10/19 12/10/19 mcg/dose blistr powdr for inhalation potassium chloride 20 mEq 20 meq PO BID 12/10/19 12/10/19 tablet,extended release prednisone 5 mg tablet 5 mg PO DAILY #30 tab 12/10/19 12/10/19 prochlorperazine maleate 10 mg 5 mg PO Q6H PRN tab 12/10/19 12/10/19 tablet prednisone 40 mg PO DAILY 5 Days #10 tab 08/17/20 Previous Rx's Medication Instructions Recorded acetaminophen 500 mg capsule 1,000 mg PO Q8H PRN #90 cap 12/23/18 prednisone 5 mg tablet 5 mg PO DAILY #30 tab 12/10/19 prednisone 40 mg PO DAILY 5 Days #10 tab 08/17/20 Allergies Allergy/AdvReac Type Severity Reaction Status Date / Time Sulfa (Sulfonamide Allergy Severe Skin Rash Unverified 12/10/19 09:26 Antibiotics) aspirin Allergy Unknown Unverified 12/10/19 09:26 sertraline [From Zoloft] Allergy Unknown Unverified 12/10/19 09:26 hydrochlorothiazide AdvReac Intermediate nausea, Unverified 12/10/19 09:26 dizzy oxycodone HCl [From Roxicet] AdvReac Intermediate Itching Unverified 12/10/19 09:26 trazodone AdvReac Intermediate vertigo Unverified 12/10/19 09:26 General Stated Complaint: Allergic NEO: 4 Review of Systems Constitutional Constitutional: Denies fatigue, Denies fever(s) and Denies weakness Eyes Eyes: Denies change in vision and Reports itchy eyes ENT Ears, Nose, Mouth, and Throat: Denies lip swelling, Denies neck pain, Denies throat swelling and Denies tongue swelling Cardiovascular Cardiovascular: Denies chest pain and Denies dyspnea Respiratory Respiratory: Denies cough, Denies dyspnea and Denies wheezing Musculoskeletal Musculoskeletal: Denies neck pain, Denies numbness and Denies tingling Integumentary/Breasts Skin/Breast: Reports rash Neurologic Neurologic: Denies numbness, Denies tingling and Denies weakness Endocrine Endocrine: Denies fatigue Allergic/Immunologic Allergic/Immunologic: Reports itchy eyes, Denies lip swelling, Denies throat swelling, Denies tongue swelling and Denies wheezing PFSH Medical History Acute renal disease Allergic rhinitis Anxiety and depression Asthma Back pain Chronic abdominal pain Chronic pain COPD (chronic obstructive pulmonary disease) Creatinine elevation Cyst of left kidney Drug eruption Fatty liver GERD (gastroesophageal reflux disease) Hydronephrosis, left Hyperlipidemia Hypertension Left ankle pain Nephrolithiasis Opioid dependence in remission Osteoporosis PTSD (post-traumatic stress disorder) Ten[place] Surgical History History of cholecystectomy History of colonoscopy History of extraction of renal calculus History of surgery left ORIF ankle, bilat leg fx History of surgery ORIF lt wrist Family History Other Cancer Diabetes Heart disease Social History Smoking/Tobacco Use Status: Never Smoking risk assessment performed?: Yes Alcohol Intake: never Drug use: Never Current gender identity: female Do you feel safe at home: Yes Do you feel safe in your relationship?: Yes Exam Const General: cooperative, healthy appearing, comfortable and no acute distress Orientation: alert, awake and oriented x3 HE[place]K Head: normal to inspection, normocephalic and atraumatic General nose exam: external nose normal Face and sinus: erythema bilaterally malar area (Minimal) Mouth: moist mucous membranes Throat: posterior oropharynx normal Eyes General: appearance normal, both eyes and all related structures Alignment and Position: alignment normal Periorbital: periorbital findings normal Eyelids: eyelids normal Conjunctivae: conjunctivae normal Sclera: sclerae normal Cornea: corneas normal Pupils: PERRL EOM: EOM intact bilaterally Direct ophthalmoscopy: normal light reflex Neck Neck: full ROM, no lymphadenopathy, no meningeal signs, trachea midline, supple and nontender Neck images: 1. Minimal erythema, macular in nature. There are areas of excoriation. There is no warmth, swelling, tenderness. Skin is without weeping or drainage Chest Chest: normal inspection of the chest Resp Effort & Inspection: normal respiratory effort and able to speak in complete sentences Auscultation: clear to auscultation bilaterally Cardio Rate: regular rate Rhythm: regular rhythm GI Inspection: normal to inspection Palpation: soft and nontender Back/Spine/Pelvis Back: No back tenderness Skin Other: Patient points out areas on her arm that she describes as rash. What she is pointing to is consistent with solar lentigo Neuro General: patient alert, patient awake, patient oriented x3, moves all extremities and no focal motor deficits Cranial Nerves: CN's II-XI intact bilaterally Cognition: normal cognition Speech: speech normal Gait: normal gait Motor: muscle tone normal throughout Sensory Exam: no sensory deficits noted Extrem General: normal to inspection, full ROM, capillary refill normal, no pedal edema and no calf tenderness Psych Appearance: grossly normal Mental Status: mental status grossly normal Course Vital Signs Vital signs: Vital Signs Temperature 37 C 08/17/20 16:52 Pulse 80 08/17/20 16:52 Respiratory Rate 20 08/17/20 16:52 Blood Pressure 169/101 H 08/17/20 16:52 Pulse Oximetry 100 08/17/20 16:52 Temperature 37 C 08/17/20 16:52 Temperature Source Temporal Artery Scan 08/17/20 16:52 Pulse 80 08/17/20 16:52 Respiratory Rate 20 08/17/20 16:52 Respiratory Effort 08/17/20 16:57 Respiratory Pattern Normal 08/17/20 16:57 Blood Pressure 169/101 H 08/17/20 16:52 Blood Pressure Position Sitting 08/17/20 16:52 Pulse Oximetry 100 08/17/20 16:52 Oxygen Delivery Method Room Air 08/17/20 16:52 Oxygen Flow Rate 0 08/17/20 16:52
[2020-08-17] MEDS: predniSONE 20 MG TAB 60 MG PO (18:02)
== END 2020-08-17 18:35 | disposition home or self-care (01) ==
PROVIDERS: Emergency Provider Physician Assistant; PCP Nurse Practitioner Family
DX: T78.40XA Allergy, unspecified, initial encounter (principal); J44.9 Chronic obstructive pulmonary disease, unspecified; I10 Essential (primary) hypertension
CPT/HCPCS: 99283; J7512

== ENCOUNTER 2021-01-06 01:59 | Outpatient (CLI) | payer MEDICARE, MEDICAID, SELFPAY ==
--- NOTE | 2021-01-06 12:43 | DI.MAMMO_ITS ---
EXAM: MAMMO SCREENING CLINICAL HISTORY: SCREENING, Z12.39. TECHNIQUE: Bilateral full field digital CC and MLO mammographic images were obtained with 3D tomosyn thesis and utilizing computer aided detection (CAD). COMPARISON: Prior mammograms dating back to 2013, the most recent being March 2019. FINDINGS: No new significant radiograph findings in the left breast. In the right breast there is a small benign-appearing noncalcified nodule measuring 5 x 3 millimeter, slightly medial of center as seen on CC view located 8 cm in from the nipple, more evident than prev ious. No malignant-appearing microcalcification groups in this region or elsewhere in either breast. There is no significant architectural distortion nor skin thickening-retraction. IMPRESSION: No radiographic evidence of malignancy in left breast. 5 x 3 millimeter asymmetric density-possible nodule slightly medial of center of the right breast. S pot compression view and ultrasound recommended. BI-RADS Category 0 - Assessment Incomplete: Need additional imaging evaluation Breast Density - Category B - Scattered areas of fibroglandular density Breast density Category C or D implies that the patient has dense breast tissue. Dense breast tissue can make it harder to find cancer on a mammogram. Dense breast tissue is also associated with an incr eased risk of breast cancer. This information about the result of the mammogram report was provided to the patient to raise their awareness. Use this report when you speak with the patient about their risks for breast cancer, which includes their family history. At that time, you may recommend additional screening tests (Ultrasoun d or MRI) as these tests may add significant information. A negative radiographic report should not delay biopsy if a dominant or clinically suspicious mass is present. Up to ten percent of cancers are not identified on mammography. A negative report may reinforce clinical impression. Adenosis and dense breasts may obscure an underlying neoplasm. False positive reports average 6 to 10%. Patient will receive a letter notifying them of these results.
== END 2021-01-06 02:19 ==
PROVIDERS: PCP Nurse Practitioner Family; Visit Provider Nurse Practitioner Family
DX: Z12.31 Encounter for screening mammogram for malignant neoplasm of breast (principal); R92.8 Other abnormal and inconclusive findings on diagnostic imaging of breast
CPT/HCPCS: 77063; 77067

== ENCOUNTER 2021-01-13 01:53 | Outpatient (CLI) | payer MEDICARE, MEDICAID, SELFPAY ==
--- NOTE | 2021-01-13 | DI.US_ITS ---
EXAM: US BREAST RT LIMITED CLINICAL HISTORY: F/U MAMMO, RT BREAST NODULE. TECHNIQUE: Limited ultrasound of the right breast was performed. COMPARISON: Prior mammograms were reviewed. Today's additional spot compression view of the right br east was performed FINDINGS: There are 2 focal findings in the right breast. There is a benign 2 millimeter microcyst at the 12 o'clock position. There is a 3 millimeter microcyst at the 4 o'clock position which corresponds to the finding on the m ammogram. Most importantly, there are no solid lesions in the right breast. IMPRESSION: The finding on the mammogram corresponds to a 3 millimeter benign microcyst at the 4 o'clock position on ultrasound. Additional tiny benign microcysts also noted 12 o'clock position. No solid lesions. Appropriate follow-up is to keep this patient yearly mammogram schedule, with earlier imaging if a se lf detected breast changes noted.. BI-RADS Category 2 - Benign Findings Breast Density - Category B - Scattered areas of fibroglandular density Breast density Category C or D implies that the patient has dense breast tissue. Dense breast tissue can make it harder to find cancer on a mammogram. Dense breast tissue is also associated with an incr eased risk of breast cancer. This information about the result of the mammogram report was provided to the patient to raise their awareness. Use this report when you speak with the patient about their risks for breast cancer, which includes their family history. At that time, you may recommend additional screening tests (Ultrasoun d or MRI) as these tests may add significant information. A negative radiographic report should not delay biopsy if a dominant or clinically suspicious mass is present. Up to ten percent of cancers are not identified on mammography. A negative report may reinforce clinical impression. Adenosis and dense breasts may obscure an underlying neoplasm. False positive reports average 6 to 10%. Patient will receive a letter notifying them of these results.
--- NOTE | 2021-01-13 13:14 | DI.MAMMO_ITS ---
EXAM: MG MAMMO SCREEN CALL BACK UNI CLINICAL HISTORY: F/U MAMMO, RT BREAST NODULE. TECHNIQUE: Spot compression 3D cc view of the right breast was obtained with 3D tomosynthesis and ut ilizing computer aided detection (CAD). COMPARISON: Prior mammograms dating back to 2013, the most recent being 01/06/2021. FINDINGS: The nodule in the inferomedial aspect of the right breast persists this additional view. We therefore performed ultrasound. This revealed this nodule to correspond to a 3 millimeter benign microcyst at the 4 o'clock position. No solid lesions seen on ultrasound. IMPRESSION: The nodule on the mammogram corresponds to a 3 millimeter benign microcyst on ultrasound. No evidenc e of malignancy. Appropriate follow-up is keep this patient yearly mammogram schedule, with earlier imaging if a self detected breast change is noted. BI-RADS Category 2 - Benign Findings Breast Density - Category B - Scattered areas of fibroglandular density Breast density Category C or D implies that the patient has dense breast tissue. Dense breast tissue can make it harder to find cancer on a mammogram. Dense breast tissue is also associated with an incr eased risk of breast cancer. This information about the result of the mammogram report was provided to the patient to raise their awareness. Use this report when you speak with the patient about their risks for breast cancer, which includes their family history. At that time, you may recommend additional screening tests (Ultrasoun d or MRI) as these tests may add significant information. A negative radiographic report should not delay biopsy if a dominant or clinically suspicious mass is present. Up to ten percent of cancers are not identified on mammography. A negative report may reinforce clinical impression. Adenosis and dense breasts may obscure an underlying neoplasm. False positive reports average 6 to 10%. Patient will receive a letter notifying them of these results.
== END 2021-01-13 02:13 ==
PROVIDERS: PCP Nurse Practitioner Family; Visit Provider Nurse Practitioner Family
DX: Z12.31 Encounter for screening mammogram for malignant neoplasm of breast (principal); R92.8 Other abnormal and inconclusive findings on diagnostic imaging of breast; N60.01 Solitary cyst of right breast
CPT/HCPCS: 76642; 77063; 77067

== ENCOUNTER 2021-05-31 13:32 | Outpatient (REF) | payer MEDICARE, MEDICAID, SELFPAY ==
--- NOTE | 2021-05-31 12:30 | PAPFT_PTH ---
PATIENT: Lena Alexandre LOC: [facility] U#:[id number] AGE/SX: 61/F ROOM: RE05/31/[address]: Destinee Bhatt : 1960 BED: DIS: 05/31/2021 SPEC #: [id number] RECD: 06/01/21 13:09 STATUS: JESSICA REReina #: [id number] VANESSA: 05/31/21 12:[address]: Destinee Bhatt DEPT: [facility] Cytology RECD BY: Sharonda Palomino Tissues: 1 - CX/ENDOCX FOR PAP SMEARS Procedures: PAP THIN PREP/UVM Screening HPV DNA PROBE Comments: [id number]
[2021-05-31 20:58] LABS: ALT 46 U/L (14-59); AST 25 U/L (15-37); Albumin 3.9 g/dL (3.4-5.0); Alkaline Phosphatase 124 U/L (46-116); Anion Gap 12.1 mmol/L (3-11); BUN 22 mg/dL (7-18); Bilirubin, Total 0.5 mg/dL (0.2-1.0); CO2 25.9 mmol/L (21.0-32.0); CREATININE 1.2 mg/dL (0.55-1.02); Calcium 8.6 mg/dL (8.5-10.1); Calculated LDL 112 mg/dL (<100); Chloride 107 mmol/L (98-107); Cholesterol 190 mg/dL (<200); Estimated GFR 45.67 (mL/min/1.73m2); Glucose 88 mg/dL (74-106); HDL Cholesterol 44 mg/dL (40-60); Magnesium 1.7 mg/dL (1.8-2.4); Potassium 4.1 mmol/L (3.5-5.1); Sodium 145 mmol/L (136-145); TSH (W/Ref FT4) 3.13 uIU/mL (0.36-3.74); Total Protein 7.1 g/dL (6.4-8.2); Triglyceride 171 mg/dL (<150)
== END 2021-05-31 13:33 | disposition home or self-care (01) ==
LOC: LBN 13:32
PROVIDERS: PCP Nurse Practitioner Family; Visit Provider Nurse Practitioner Family
DX: E03.9 Hypothyroidism, unspecified (principal); E83.42 Hypomagnesemia; E78.5 Hyperlipidemia, unspecified; E87.6 Hypokalemia; Z12.4 Encounter for screening for malignant neoplasm of cervix; Z11.51 Encounter for screening for human papillomavirus (HPV); Z01.419 Encounter for gynecological examination (general) (routine) without abnormal findings
CPT/HCPCS: 80053; 80061; 88142; 83735; 84443; 87624

== ENCOUNTER 2022-01-17 01:43 | Outpatient (CLI) | payer MEDICARE, MEDICAID, SELFPAY ==
--- NOTE | 2022-01-17 | DI.MAMMO_ITS ---
Exam(s) MAMMO SCREENING EXAM: MAMMO SCREENING CLINICAL HISTORY: SCREENING MAMMO Z12.31 TECHNIQUE: Bilateral full field digital CC and MLO mammographic images were obtained with 3D tomosyn thesis and utilizing computer aided detection (CAD). COMPARISON: Available for comparison. FINDINGS: Masses/Architectural Distortion: None seen. Microcalcifications: No suspicious pleomorphic-type are seen. Skin Thickening/Nipple Retraction: None. IMPRESSION: 1. No significant interval change with no specific features of malignancy noted. 2. Unless there is more urgent need, screening mammography is recommended, as per [employer] guidelines. BI-RADS Category 1 - Negative Breast Density - Category B - Scattered areas of fibroglandular density Breast density category C or D implies that the patient has dense breast tissue. Dense breast tissue is very common and is not abnormal but dense breast tissue can make it harder to find cancer on a ma mmogram. Also, dense breast tissue may increase their breast cancer risk. This information about the result of the mammogram report was provided to the patient to raise their awareness. Use this report when you speak with the patient about their risks for breast cancer, which includes their family hist ory. At that time, you may recommend for more screening tests (Ultrasound or MRI) as they might be us eful based on their risk. A negative radiographic report should not delay biopsy if a dominant or clinically suspicious mass is present. Up to ten percent of cancers are not identified on mammography. A negative report may reinforce clinical impression. Adenosis and dense breasts may obscure an underlying neoplasm. False positive reports average 6 to 10%. Patient will receive a letter notifying them of these results.
== END 2022-01-17 02:03 ==
PROVIDERS: PCP Nurse Practitioner Family; Visit Provider Nurse Practitioner Family
DX: Z12.31 Encounter for screening mammogram for malignant neoplasm of breast (principal)
CPT/HCPCS: 77063; 77067

== ENCOUNTER → 2022-05-05 00:41 | Outpatient (CLI) | payer MEDICARE, MEDICAID, SELFPAY ==
--- NOTE | 2022-05-05 | DI.RAD_ITS ---
Exam(s) XR KNEE RT 3V AP,LAT,CHITO EXAM: XR KNEE RT 3V AP,LAT,CHITO CLINICAL HISTORY: RT KNEE PAIN M25.561. TECHNIQUE: 2D digital imaging was performed. Three images were obtained. AP, lateral and tunnel vie ws were obtained. COMPARISON: CR XR KNEE RT 3V AP,LAT,CHITO from 11/24/2019 FINDINGS: BONES: There are stable post operative changes present. No new fracture or dislocation. Old lateral tibial plateau fracture. JOINTS: Moderate degenerative changes of the right knee, particularly at the patellofemoral joint. N o joint effusion is present. SOFT TISSUE: Normal. IMPRESSION: 1. Stable postoperative changes. 2. Moderate degenerative changes in the right knee. DATA REPOSITORY: RADIATION DOSE DELIVERED:
--- OUTSIDE RECORDS SUMMARY | 2022-05-05 00:44 | XMS_ITS | Encounter Summary ---
:1960 Author Organization [facility] [place] [address] Care Team Providers Name Role Phone Marko Duffy APRN Primary Care Provider Reason for Visit Consultation (Routine) - Specialty Diagnoses / Procedures Referred By Contact Refer red To Contact Nephrology Diagnoses Disorder of kidney and ureter, unspecified Abnormal results of kidney function studies Unspecified hydronephrosis Personal history of urinary calculi KIDNEY DISEASE, ELEVATED CREATININE Marko Duffy APRN [facility] [address] [place] [id number] Referral ID Status Reason Start Date Expiration Date Visits V isits Requested Authorized [id number] Consult, Test 06/24/2019 09/23/2019 [facility] PCP Updated and/or Approved Encounter Details Date Type Department Care Team Description 08/21/2019 Office Visit Nephrology Benitez Adames Chronic kidn ey disease, unspecified CKD stage; Hypertension at [facility] MD Stephy Vitamin D insufficiency [facility] [place] [address] [place] [address] [place] [address] [phone] Social History Tobacco Use Types Packs/Day Years Used Date Never Smoker Smokeless Tobacco: Never Used Alcohol Use Standard Drinks/Week Comments Yes 0 (1 standard drink = 0.6 oz pure 2-3 ti mes per year, denies h/o ETOH alcohol) abuse Alcohol Habits Answer Date Recorded How often do you have a drink Not asked containing alcohol? How many drinks containing alcohol do Not asked you have on a typical day when you are drinking? How often do you have six or more Not asked drinks on one occasion? Comment: 2-3 times per year, denies h/o 6 ETOH abuse Sex Assigned at Date Recorded Not on file documented as of this encounter Last Filed Vital Signs Vital Sign Reading Time Taken Comments Blood Pressure 133/98 08/21/2019 3:08 PM EDT Pulse 85 08/21/2019 3:08 PM EDT Temperature - - Respiratory Rate - - Oxygen Saturation - - Inhaled Oxygen Concentration - - Weight 85.3 kg (188 lb) 08/21/2019 3:08 PM EDT Height 154.9 cm (5' 1) 08/21/2019 3:08 PM EDT Body Mass Index 35.52 08/21/2019 3:08 PM EDT documented in this encounter Progress Notes Benitez Adames MD - 08/21/2019 3:00 PM EDT PATIENT: Lena Alexandre : 1960 REASON FOR CONSULTATION: Cr elevateion HPI: 59-year-old female presents to renal clinic for evaluation of elevated creatinine. She believes thatfirst noted in December 2018. She denies history of diabetes she denies known heart disease. She has a significant history of chronic pain stemming from musculoskeletal injuries. In this setting she has had significant nonsteroidal anti-inflammatory use. She is working with pain management in order to find another solution. Additionally she has a history of nephrolithiasis requiring lithotripsy in 2009.She believes this is the only episode of kidney stones. She has had elevated blood pressure since 2003 unable to fully elaborate nature of this she was previously on lisinopril however this was discontinued when her creatinine was elevated in December. She remains on hydrochlorothiazide and atenolol. Assessment/Plan: #Chronic Kidney disease Stage likely stage IIIb: CR 1.24g/dl -> eGFR 44ml/min Per external labs on 05/09. Per availble data patient had rise in Cr to 2.0mg/dl in 01/07. Prior to this most recent baseline in our system 0.76mg/DL in 2009. Dearth of data between. Known history of nehrolithiasis. External reports also mentions hydronephrosis on left side (images unavailable) significant NSAID use. Believe that acute elevation to 2 mg/dL likely represented acute kidney injury, however given dearth of data between 2009 in December 2012 it also possible that patient is developed CKD in that time. Plan: Will send formal UA and measure degree of Proteinuria (microalbumin/UPC). Will also conduct workup for secondary processes including HIV/Hep, C3/C4 and SPEP/SFLC. Will assess renal/urinary tract structure with renal US. Patient previously on lisinopril however this is held in December due to [place] #Hemodynamics Blood Pressure: 133/98. Encourage patient to begin home blood pressure monitoring so we may better understand her trend. Antihypertensives: Hydrochlorothiazide 25 mg atenolol 100 mg Volume Status:Patient appears euvolemic Prevalent CVD: No prevalent cardiovascular disease known. Patient is on beta- zhanna and atorvastatin #Hemoglobin Check CBC Goal Hgb 10-12g/dl, Ferritin>100ng/ml, TSAT>20% #Acid/Base status Check Bicarb Would Add NaHCO3 if serum bicarb persistently < 22mmol/l #Bone Mineral Health Will Check Ca/Phos, PTH and Vit D Stage 3 PTH: 35-70 pg/ml Phos 2.7-4.6 Ca 8.5-10.5mg/dl Renal Clinic Follow-Up Plan: 3 months Past Medical History: Diagnosis Date ??? Anxiety ??? Asthma ??? Depression ??? Fracture T12 burst fracture 2000 ??? GERD (gastroesophageal reflux disease) ??? History of posttraumatic stress disorder (PTSD) after fall through an attic floor 2000, pt feels sx have resolved ??? Hypercholesterolemia ??? Hyperlipidemia ??? Hypertension ??? Kidney stone ??? Liver disease fatty liver Past Surgical History: Procedure Laterality Date ??? ANKLE FRACTURE SURGERY Left 2000 ??? ANKLE FUSION Left 2002 ??? CHOLECYSTECTOMY ??? LITHOTRIPSY ??? TIBIA FRACTURE SURGERY Right 2000 plateau fracture ??? URETER STENT PLACEMENT 2009 and removal for stones Family History Problem Relation Age of Onset ??? Coronary Artery Disease Mother ??? Diabetes Mother Social History Social History Narrative Not on file Outpatient medications: Current Outpatient Medications on File Prior to Visit Medication Sig Dispense Refill ??? hydroCHLOROthiazide (HYDRODIURIL) 25 mg Tablet Take 25 mg by mouth daily. ??? cetirizine (ZYRTEC) 10 mg Tablet Take 10 mg by mouth daily. ??? atorvastatin (LIPITOR) 20 mg Tablet Take 20 mg by mouth daily. ??? Evpsoba-Khccnbkfn-Ccag 333-133-5 mg Tablet Take by mouth daily. ??? aspirin-caffeine (BACK AND BODY PAIN RELIEVER) 500-32.5 mg Tablet Take 1 tablet by mouth daily. ??? atenolol (TENORMIN) 100 mg Tablet Take 100 mg by mouth daily. ??? tiZANidine (ZANAFLEX) 2 mg Tablet every 8 hours as needed. ??? NEXIUM 40 mg Capsule, Delayed Release(E.C.) Take 40 mg by mouth daily. ??? prochlorperazine (COMPAZINE) 10 mg Tablet every 8 hours as needed. ??? Mometasone (NASONEX) 50 mcg/Actuation [place] by Nasal route as needed. ??? acetaminophen (TYLENOL) 500 mg tablet Take 1,000 mg by mouth every 6 hours as needed. ??? ALBUTEROL INHL Inhale 2 puffs into the lungs. As directed/as needed ??? fluticasone-salmeterol (ADVAIR DISKUS) 250-50 mcg/dose diskus inhaler Inhale 1 puff into the lungs 2 times daily. ??? MULTI-VITAMIN ORAL Take 1 tablet by mouth daily. ??? Levalbuterol Tartrate (XOPENEX HFA) 45 mcg/Actuation inhaler ??? [DISCONTINUED] ibuprofen (ADVIL;MOTRIN) 800 mg Tablet ??? [DISCONTINUED] WELCHOL 625 mg Tablet ??? [DISCONTINUED] lisinopril (PRINIVIL;ZESTRIL) 10 mg Tablet ??? [DISCONTINUED] melatonin 3 mg Tablet Take by mouth. ??? [DISCONTINUED] LACTOBACILLUS RHAMNOSUS GG (PROBIOTIC ORAL) Take 1 capsule by mouth daily. ??? [DISCONTINUED] Cholecalciferol, Vitamin D3, (VITAMIN D) 1,000 unit Tab Take 1 tablet by mouth daily. ? ? [DISCONTINUED] atenolol (TENORMIN) 50 mg tablet Take 75 mg by mouth nightly. 75 mg = 1&1/2 tablets ??? [DISCONTINUED] clonAZEpam (KLONOPIN) 0.5 mg tablet Take 0.5 mg by mouth 2 times daily. ??? [DISCONTINUED] fish oil-omega-3 fatty acids 1,000 mg capsule No current facility-administered medications on file prior to visit. MEDICATIONS: Allergies Allergen Reactions ??? Oxycodone-Acetaminophen Itching ??? Sulfa (Sulfonamide Antibiotics) Hives ??? House Dust Headaches, Asthma ??? Zoloft [Sertraline] ??? Trazodone Dizziness, lightheaded ROS: Constitutional - No fevers, chills, weight loss Skin - No rash or itchy skin HEENT - No headaches, visual changes, oral mucosa dryness Resp - No cough, shortness of breath CV - No chest pain, difficulty breathing lying flat, leg swelling GI - No nausea, vomiting,change in bowel habits/abdominal pain - No change in urine output. No pain urinating or blood in urine. Neuro - No weakness. No numbness/ tingling in extremities. MSK-chronic pain PHYSICAL EXAM: Last value Temperature Heart Rate Heart Rate: 85 Blood Pressure BP: (!) 133/98 Respiratory Rate SpO2 Appearance - Alert, Comfortable. Obese Skin - No exanthem. HEENT - Sclera white. Mucous membranes moist. Chest:. Lungs clear to ausculatation w/o wheezes/ rhonchi/ crackles. Heart - S1 and S2 clear w/o murmur, gallop, or rub. JVP not elevated. Abd - Soft. + BS. No bruit. Non tender. Ext - . Warm. No cyanosis. No dependent edema. Neuro - No asterixis. STUDIES: Labs: CBC: No results for input(s): WBC, HGB, PLATELET in the last 7068 hours. Chemistry: No results for input(s): NA, K, CL, CO2, BUN, CREATININE, GLUCOSE in the last 7068 hours. No results for input(s): CALCIUM, MAGNESIUM, PHOS in the last 7068 hours. LFT's: No results for input(s): BILITOT, BILIDIR, ALBUMIN, ALKPHOS, ALT, AST in the last 7068 hours. Benitez Adames MD, MPH Section of Nephrology #[id number] documented in this encounter Plan of Treatment Not on filedocumented as of this encounter Procedures Procedure Name Priority Date/Time Associated Diagnosis Comme nts URINALYSIS STAT 08/21/2019 4:42 Results for this MICROSCOPIC EXAM PM EDT procedure a re in the results section. HC PROTEIN, Routine 08/21/2019 4:42 Chronic kidney Results fo r this QUANTITATIVE, URINE PM EDT disease, unspecified procedure are in CKD stage the results section. HC PROTEIN, Routine 08/21/2019 4:42 Chronic kidney Results fo r this QUANTITATIVE, URINE PM EDT disease, unspecified procedure are in CKD stage the results section. HC MICROALBUMIN, Routine 08/21/2019 4:42 Chronic kidney Result s for this URINE PM EDT disease, unspecified procedu re are in CKD stage the results section. URINALYSIS WITH STAT 08/21/2019 4:42 Chronic kidney Results for this REFLEX CULTURE PM EDT disease, unspecified proce dure are in CKD stage the results section. URINE CULTURE STAT 08/21/2019 4:42 Results for this PM EDT procedure are i n the results section. HC PARATHYROID Routine 08/21/2019 4:28 Chronic kidney Results for this HORMONE(PTH INTACT PM EDT disease, unspecified p rocedure are in CKD stage the results section. HEMOGRAM Routine 08/21/2019 4:28 Chronic kidney Results fo r this PM EDT disease, unspecified procedu re are in CKD stage the results section. DIFFERENTIAL, Routine 08/21/2019 4:28 Chronic kidney Results f or this AUTOMATED PM EDT disease, unspecified procedu re are in CKD stage the results section. HC VITAMIN D TOTAL-25 Routine 08/21/2019 4:28 Vitamin D Res ults for this HYDROXY PM EDT insufficiency procedure are in the results section. HC VENIPUNCTURE Routine 08/21/2019 4:28 Chronic kidney PM EDT disease, unspecified CKD stage BASIC METABOLIC PANEL Routine 08/21/2019 4:28 Chronic kidney R esults for this (NON-FASTING) PM EDT disease, unspecified proced ure are in CKD stage the results section. documented in this encounter Results (ABNORMAL) Basic Metabolic Panel (non-fasting) (04/07/2020 1:55 PM EDT) P athologist Signature Glucose Lvl 135 65 - 199 [facility] mg/dL [facility] Comment: Diabetes: >=200 mg/dL plus symp toms BUN 16 8 - 18 mg/dL [facility] Creatinine 1.13 0.70 - 1.20 mg/dL [facility] Sodium 142 135 - 145 mmol/L [facility] Potassium 4.0 3.5 - 5.0 mmol/L [facility] Comment: Please note: ??Patients with WBC >100,00 0 may have falsely elevated Potassium levels. ??For accurate Potassium quantif ication in these patients send serum separator tube (gold top) for subsequent determinations. ??Contact the Clinical Chemistry Laboratory if there are any qu estions. Chloride 104 98 - 107 mmol/L [facility] CO2 24 22 - 31 mmol/L [facility] Anion Gap 14 5 - 15 mmol/L [facility] Calcium 8.2 (L) 8.5 - 10.5 mg/dL [facility] Estimated GFR 53 (L) >=60 mL/min/1.73 m?? [facility] Comment: The eGFR was calculated using the CKD-EP I equation. As with all creatinine based estimates of kidney function, eGFR values calculated with the CKD-EPI equation are not accurate in patients wi th acute kidney failure, extremes of body mass or the acutely ill. [email or web address] eGFR 61 >=60 mL/min/1.73 m?? [facility] Comment: The eGFR was calculated using the CKD-EP I equation. As with all creatinine based estimates of kidney function, eGFR values calculated with the CKD-EPI equation are not accurate in patients wi th acute kidney failure, extremes of body mass or the acutely ill. [email or web address] Specimen Anatomical Collection Method Collection Time Receive d Time (Source) Location / / Volume Laterality Blood specimen 04/07/2020 1:55 PM 020 2:05 (specimen) EDT PM EDT Resulting Agency Comment Spec In Lab Benitez Adames MD CHEMISTRY ORDERABLES Performing Organization Address City/State/ZIP Code Phon e Number [place] [phone] (ABNORMAL) Urine culture (08/21/2019 4:42 PM EDT) [facility] Method Time Signature Urine Culture 50,000-99,000 ISSAC cfu/ml [facility] coli (A) [facility] Organism Escherichia ISSAC coli (A) [facility] Specimen Anatomical Collection Method Collection Time Receive d Time (Source) Location / / Volume Laterality Urine specimen 08/21/2019 4:42 PM 019 7:49 (specimen) EDT PM EDT Resulting Agency Comment Spec In Lab Organism Antibiotic Method Susceptibility Escherichia coli Amikacin VITEK 2 METHOD Sensitive Escherichia coli Ampicillin + Sulbactam VITEK 2 METHOD Sensitiv e Escherichia coli Aztreonam VITEK 2 METHOD Sensitive Escherichia coli Cefazolin VITEK 2 METHOD Sensitive Escherichia coli Ceftazidime VITEK 2 METHOD <=1: Sensitive Escherichia coli Ceftriaxone VITEK 2 METHOD Sensitive Escherichia coli Ertapenem VITEK 2 METHOD Sensitive Escherichia coli Gentamicin VITEK 2 METHOD Sensitive Escherichia coli Levofloxacin VITEK 2 METHOD Sensitive Comment: Levofloxacin and Ciprofloxac in may not adequately treat infections in critically ill patients even when isolates test susceptible in the laboratory. Contact Infectious Disease b efore using in critically ill patients. Escherichia coli Meropenem VITEK 2 METHOD <=0.25: Sensiti ve Escherichia coli Nitrofurantoin VITEK 2 METHOD Sensitive Escherichia coli Piperacillin/Tazobactam VITEK 2 METHOD <=4: Se nsitive Escherichia coli Tetracycline VITEK 2 METHOD Sensitive Escherichia coli Tobramycin VITEK 2 METHOD Sensitive Escherichia coli Trimethoprim/Sulfa VITEK 2 METHOD Sensitive Benitez Adames MD MICROBIOLOGY - GENERAL ORDER ERNIE Performing Organization Address City/[facility]/[place] [address] (ABNORMAL) Urinalysis Microscopic Exam (08/21/2019 4:42 PM EDT) P athologist Signature RBC UA 1 0 - 4 /HPF [facility] WBC UA 22 (H) 0 - 5 /HPF [facility] Bacteria UA Few (A) None /HPF [facility] Squam Epith UA 1 <=4 /HPF [facility] Specimen Anatomical Collection Method Collection Time Receive d Time (Source) Location / / Volume Laterality Urine specimen 08/21/2019 4:42 PM 019 4:42 (specimen) EDT PM EDT Resulting Agency Comment Spec In Lab Benitez Adames MD URINE ORDERABLES Performing Organization Address City/State/ZIP Code Phon e Number [address] Protein/Creatinine Ratio, urine (08/21/2019 4:42 PM EDT) P athologist Signature U Creatinine 122 mg/dL [facility] U Protein Ran 10 0 - 12 [facility] Prot/Cre Ratio <0.1 ratio [facility] Specimen Anatomical Collection Method Collection Time Receive d Time (Source) Location / / Volume Laterality Urine specimen 08/21/2019 4:42 PM 019 4:42 (specimen) EDT PM EDT Resulting Agency Comment Spec In Lab Benitez Adames MD URINE ORDERABLES Performing Organization Address City/[facility]/ZIP Code Phon e Number [address] Protein/Creatinine Ratio, urine (08/21/2019 4:42 PM EDT) P athologist Signature U Creatinine 124 mg/dL [facility] U Protein Ran 10 0 - [facility] Prot/Cre Ratio <0.1 ratio [facility] Specimen Anatomical Collection Method Collection Time Receive d Time (Source) Location / / Volume Laterality Urine specimen 08/21/2019 4:42 PM 019 4:42 (specimen) EDT PM EDT Resulting Agency Comment Spec In Lab Benitez dAames MD URINE ORDERABLES Performing Organization Address City/[facility]/ZIP Code Phon e Number [address] U Albumin/Cre Ratio (08/21/2019 4:42 PM EDT) P athologist Signature Alb/Cr Ratio, 10 0 - 29 [facility] Random mcg/mg Cr [facility] Comment: Reference Ranges: <30 mcg/mg: Normal 30-300 mcg/mg: Moderately increased albu minuria.* >300 mcg/mg: Severely increased albuminu mike. * ACEI or ARB recommended if diabetic; s uggested if BP>130/80 without diabetes ACEI or ARB strongly recommended if di abetic; recommended if BP>130/80 without diabetes Two of three specimens collected within a 3 to 6 month period should be abnormal before considering a patient to have albuminuria. Transient causes: exercise, fever, infection, CHF, marked hyperglycemia or hypertension. Persistent albuminuria indicates CKD and is an independent risk factor for ASCVD. ADA Standards of Medical Care in Diabete s-2016; KDIGO: Kidney International Supplements (2012) 2, 357? 362 U Albumin Conc, Random 12.7 mg/L [facility] U Creatinine 124 mg/dL [facility] Specimen Anatomical Collection Method Collection Time Receive d Time (Source) Location / / Volume Laterality Urine specimen 08/21/2019 4:42 PM 019 4:42 (specimen) EDT PM EDT Resulting Agency Comment Spec In Lab Benitez Adames MD URINE ORDERABLES Performing Organization Address City/State/[place] [address] (ABNORMAL) Urinalysis with reflex Culture (08/21/2019 4:42 PM EDT) Patholo gist Method Time Signature Glucose UA Negative Negative [facility] Protein UA Negative Negative [facility]/dL [facility] Bilirubin UA Negative Negative [facility] mg/dL [facility] Comment: Clinical correlation required for positi ve Urine Bilirubin results as false positive may occur with some drugs and d rug related products. If a false positive is suspected a serum total bili nguyễn should be considered if clinically indicated. Urobilinogen UA Normal Normal mg/dL [facility] pH UA 5.5 5.0 - 8.0 [facility] Blood UA Negative Negative mg/dL [facility] Ketones UA Negative Negative mg/dL [facility] Nitrite UA Negative Negative [facility] Leukocytes UA Small (A) Negative [facility] Appearance UA Clear Clear [facility] Spec [place] UA 1.020 1.002 - 1.030 [facility] Color UA Yellow Yellow [facility] Culture Reflexed Yes [facility] Specimen Anatomical Collection Method Collection Time Receive d Time (Source) Location / / Volume Laterality Urine specimen 08/21/2019 4:42 PM 019 4:42 (specimen) EDT PM EDT Resulting Agency Comment Spec In Lab Benitez Adames MD URINE ORDERABLES Performing Organization Address City/State/ZIP Code Phon e Number [address] Differential, Automated (08/21/2019 4:28 PM EDT) athologist Signature Neutrophils % 61.7 % [facility] Neutr Abs (ANC) 5.58 1.70 - [facility] 6.10 [facility] x10(3)[facility] LABORATORY Lymphocytes % 24.9 % [facility] Lymphocytes Abs 2.2 0.9 - 3.2 [facility] x10(3)[facility] LABORATORY Monocytes % 9.4 % [facility] Monocyte Abs 0.8 0.3 - 0.9 [facility] x10(3)[facility] LABORATORY Eosinophils % 3.3 % [facility] Eosinophils Abs 0.3 0.0 - 0.4 [facility] x10(3)/[facility] LABORATORY Basophils % 0.4 % [facility] Basophils Abs 0.0 0.0 - 0.1 [facility] x10(3)/[facility] LABORATORY Immature Gran % 0.30 % [facility] Comment: Immature granulocytes(IG's)percentage an d absolute count will include metamyelocytes, myelocytes, and promyelo cytes. Blood smears from CBCs yielding IG's will be scanned manually for antonio garner. If this scan disagrees with the automated IG or if promyelocytes are not ed, a manual differential will be performed. Amarilis Gran Abs 0.03 0.00 - 0.04 x10(3)/[facility] Specimen Anatomical Collection Method Collection Time Receive d Time (Source) Location / / Volume Laterality Blood specimen 08/21/2019 4:28 PM 019 4:35 (specimen) EDT PM EDT Resulting Agency Comment Spec In Lab Benitez Adames MD HEMATOLOGY ORDERABLES Performing Organization Address City/State/[place] [address] (ABNORMAL) Hemogram (08/21/2019 4:28 PM EDT) Analysis Performed At Patho logist Time Signature WBC 9.0 4.0 - 9.5 [facility] x10(3)/[facility] LABORATORY RBC 3.86 (L) 4.00 - [facility] NASIM 5.21 [facility] x10(6)/[facility] LABORATORY Hemoglobin 11.4 (L) 11.7 - [facility] 15.5 gm/dL [facility] Hematocrit 36.6 35.7 - [facility] 45.8 % [facility] MCV 94.8 (H) 82.6 - [facility] MCH 29.5 27.1 - [facility] NASIM 32.0 pg [facility] MCHC 31.1 (L) 31.7 - [facility] NASIM 35.0 gm/dL [facility] Platelets 264 145 - 357 [facility] x10(3)/[facility] LABORATORY RDWSD 49.9 (H) 37.0 - [facility] 46.0 [facility] LAB[facility]ORY RDWCV 14.3 (H) 11.5 - [facility]IM 14.1 % [facility] MPV 10.3 7.6 - 12.9 [facility] LABORATORY nRBC % Auto 0.0 % [facility] nRBC Abs Auto 0.000 0.000 - [facility] NASIM 0.000 [facility] x10(3)/[facility] LABORATORY Specimen Anatomical Collection Method Collection Time Receive d Time (Source) Location / / Volume Laterality Blood specimen 08/21/2019 4:28 PM 019 4:35 (specimen) EDT PM EDT Resulting Agency Comment Spec In Lab Benitez Adames MD HEMATOLOGY ORDERABLES Performing Organization Address City/[facility]/ZIP Code Phon e Number [address] (ABNORMAL) PTH (08/21/2019 4:28 PM EDT) athologist Signature PTH 86 (H) 15 - 65 [facility] pg/mL [facility] Specimen Anatomical Collection Method Collection Time Receive d Time (Source) Location / / Volume Laterality Blood specimen 08/21/2019 4:28 PM 019 4:35 (specimen) EDT PM EDT Resulting Agency Comment Spec In Lab Benitez Adames MD CHEMISTRY ORDERABLES Performing Organization Address City/[facility]/[place] [address] Vitamin D, 25-Hydroxy (08/21/2019 4:28 PM EDT) athologist Signature 25-OH Vit D 46 30 - 100 ISSAC NASIM Total ng/mL [facility] Comment: As of 2019, 25-hydroxyvitamin D maribel ting has moved from the [employer]2ebanking-iSYS to the Edgardo Christina. No substantial change in me asured values is expected. Specimen Anatomical Collection Method Collection Time Receive d Time (Source) Location / / Volume Laterality Blood specimen 08/21/2019 4:28 PM 019 4:35 (specimen) EDT PM EDT Resulting Agency Comment Spec In Lab Benitez Adames MD CHEMISTRY ORDERABLES Performing Organization Address City/[facility]/ZIP Code Phon e Number [address] (ABNORMAL) Basic Metabolic Panel (non-fasting) (08/21/2019 4:28 PM EDT) athologist Signature Glucose Lvl 111 65 - 199 ISSAC NASIM mg/dL [facility] Comment: Diabetes: >=200 mg/dL plus symp toms BUN 24 (H) 8 - 18 mg/dL [facility] Creatinine 1.28 (H) 0.70 - 1.20 mg/dL [facility] Sodium 141 135 - 145 mmol/L [facility] Potassium 3.4 (L) 3.5 - 5.0 mmol/L [facility] Comment: Please note: ??Patients with WBC >100,00 0 may have falsely elevated Potassium levels. ??For accurate Potassium quantif ication in these patients send serum separator tube (gold top) for subsequent determinations. ??Contact the Clinical Chemistry Laboratory if there are any qu estions. Chloride 99 98 - 107 mmol/L [facility] CO2 26 22 - 31 mmol/L [facility] Anion Gap 16 (H) 5 - 15 mmol/L [facility] Calcium 9.2 8.5 - 10.5 mg/dL [facility] Estimated GFR 46 (L) >=60 mL/min/1.73 m?? [facility] Comment: The eGFR was calculated using the CKD-EP I equation. As with all creatinine based estimates of kidney function, eGFR values calculated with the CKD-EPI equation are not accurate in patients wi th acute kidney failure, extremes of body mass or the acutely ill. [email or web address] eGFR 53 (L) >=60 mL/min/1.73 m?? [facility] Comment: The eGFR was calculated using the CKD-EP I equation. As with all creatinine based estimates of kidney function, eGFR values calculated with the CKD-EPI equation are not accurate in patients wi th acute kidney failure, extremes of body mass or the acutely ill. [email or web address] Specimen Anatomical Collection Method Collection Time Receive d Time (Source) Location / / Volume Laterality Blood specimen 08/21/2019 4:28 PM 019 4:35 (specimen) EDT PM EDT Resulting Agency Comment Spec In Lab Benitez Adames MD CHEMISTRY ORDERABLES Performing Organization Address City/State/[place] [address] documented in this encounter Visit Diagnoses Diagnosis Chronic kidney disease, unspecified CKD stage Vitamin D insufficiency Unspecified vitamin D deficiency documented in this encounter Care Teams Coremaker Helper Relationship Specialty Start Date End Date Marko Duffy APRN PCP - General Family Medicine 07/10/19 08/22/20 [address] [place] [address] documented as of this encounter
--- OUTSIDE RECORDS SUMMARY | 2022-05-05 00:44 | XMS_ITS | Encounter Summary ---
:1960 Author Organization [facility] [place] [address] Care Team Providers Name Role Phone Stephany Allen APRN Primary Care Provider Reason for Visit Reason Comments Pain Management Back Pain Knee Pain right Ankle Pain left Consultation (Routine) - Closed Specialty Diagnoses / Procedures Referred By Contact Refer red To Contact Pain Management Diagnoses ankle pain, back pain Stephany Allen APRN [facility] Pain Management Procedures ankle pain, back pain [facility] [address]d [facility]IL[facility] Y [facility] [address] [place] [id number] [place] [address] Fax: Referral ID Status Reason Start Date Expiration Date Visits Requ ested Visits Authorized [id number] Closed 07/21/2016 07/21/2017 1 1 Encounter Details Date Type Department Care Team Description 08/03/2016 Office Visit Pain Management at [facility] Sp[facility] ndylosis of lumbar region without myelopathy or radiculopathy; Dalerichelle TABOR Facet arthropathy, lumbar [facility] [address] [place] [phone] Social History Tobacco Use Types Packs/Day Years Used Date Never Smoker Smokeless Tobacco: Never Used Alcohol Habits Answer Date Recorded How often [...] Sign Reading Time Taken Comments Blood Pressure 151/99 08/03/2016 12:11 PM EDT Pulse 72 08/03/2016 12:11 PM EDT Temperature - - Respiratory Rate - - Oxygen Saturation 100% 08/03/2016 12:11 PM EDT Inhaled Oxygen Concentration - - Weight 79.4 kg (175 lb) 08/03/2016 12:11 PM EDT Height 154.9 cm (5' 1) 08/03/2016 12:11 PM EDT Body Mass Index 33.07 08/03/2016 12:11 PM EDT documented in this encounter Progress Notes Sh[facility] Juárez, SHARONA - 08/03/2016 12:30 PM EDT PAIN CLINIC FOLLOW-UP DATE OF VISIT 08/03/2016 Patient Lena Alexandre 1960 REFERRING PROVIDER Stephany Allen APRN [address], [facility] [address] [place] [address] PRIMARY CARE PROVIDER STEPHANY ALLEN APRN CHIEF COMPLAINT: Chronic pain management follow-up HPI: Lena Alexandre is a 56 year-old female initially seen by Dr. Rubio on 07/20/16 in the [facility] for back pain. She has had back pain since 2000 when she fell through a roof and landed on a cement parking garage floor. She had a T12 burst fracture, left ankle fracture, and right tibial plateau fracture following the fall. Her thoracic back pain has improved, and her low back pain is more distressing at this time. She also has right knee and left ankle pain, but has not seen orthopedics recently. At the initial visit, Dr. Rubio recommended lumbar spine x-rays to assess for spondylosis/facet arthropathy, consideration of LMBB/RFA, increased exercise, CBT with therapist, and requested that she obtain notes from her previous providers to determine what medications she has tried. Also, she told Dr. Rubio that she had taken a friend???s Percocet and had an aberrant urine but that her PCP is still willing to prescribe one Tylenol #[address] Rubio advised her that we would not be willing to take over prescribing. She is moderate risk for opiate misuse (ORT = 5). Of note, her UDT from 07/20/16 was positive for codeine + metabolites, as well as hydrocodone + metabolites (notbeing prescribed as far as our records indicate). When I asked her about this today she stated that she took a friend's Vicodin since she could attend another fair. She became very tearful and stated that if she is unable to walk around with the therapist that she will lose her friends and that is whyshe is taking her friend's medications. INTERVAL HISTORY: ED visits, hospitalizations, new medical problems or surgeries since previous visit? No Changes in family, social, or functional history since previous visit? No - She tried to get a list of medications that she had tried in the past, but instead just received all of her doctor's visit notes (from PCP)- has file with her today. PAIN ASSESSMENT: - Constant aching in bilateral low back pain, no radiation down legs - + numbness in left ankle at times; denies weakness - No saddle anesthesia - Aggravated by: standing/walking for 20-30 minutes - Alleviated by: laying down - Average pain in past week: 02/28 with medications MEDICATIONS Medications 08/03/16 1225 Medication Sig Taking? WELCHOL 625 mg Tablet Yes acetaminophen-codeine (TYLENOL #3) 300-30 mg Tablet Yes NEXIUM 40 mg Capsule, Delayed Release(E.C.) Yes lisinopril (PRINIVIL;ZESTRIL) 10 mg Tablet Yes prochlorperazine (COMPAZINE) 10 mg Tablet Yes melatonin 3 mg Tablet Take by mouth. Yes ferrous sulfate 325 mg (65 mg iron) Tablet Take 325 mg by mouth daily (with breakfast). Yes potassium chloride (MICRO-K) 10 mEq Capsule, Sustained Release Take 10 mEq by mouth 2 times daily. Yes Mometasone (NASONEX) 50 mcg/Actuation [place] by Nasal route. Yes acetaminophen (TYLENOL) 500 mg tablet Take 1,000 mg by mouth every 6 hours as needed. Yes celecoxib (CELEBREX) 200 mg capsule Take 200 mg by mouth daily. Yes LACTOBACILLUS RHAMNOSUS GG (PROBIOTIC ORAL) Take 1 capsule by mouth daily. Yes Cholecalciferol, Vitamin D3, (VITAMIN D) 1,000 unit Tab Take 1 tablet by mouth daily. Yes atenolol (TENORMIN) 50 mg tablet Take 75 mg by mouth nightly. 75 mg = 1&1/2 tablets Yes ALBUTEROL INHL Inhale 2 puffs into the lungs. As directed/as needed Yes clonAZEpam (KLONOPIN) 0.5 mg tablet Take 0.5 mg by mouth 2 times daily. Yes fluticasone-salmeterol (ADVAIR DISKUS) 250-50 mcg/dose diskus inhaler Inhale 1 puff into the lungs 2times daily. Yes MULTI-VITAMIN ORAL Take 1 tablet by mouth daily. Yes fish oil-omega-3 fatty acids 1,000 mg capsule Yes Levalbuterol Tartrate (XOPENEX HFA) 45 mcg/Actuation inhaler Yes levalbuterol (XOPENEX) 1.25 mg/3 mL nebulizer solution Yes [place] and [place] Prescription Monitoring Program were checked and no concerns were identified. -- Tylenol #3 prescribed by PCP- 1 tab every day ADVERSE DRUG REACTIONS Allergies as of 08/03/2016 - Review Complete 08/03/2016 Allergen Reaction Noted ??? Oxycodone-acetaminophen Itching ??? Sulfa (sulfonamide antibiotics) Hives ??? House dust ??? Zoloft [sertraline] 07/20/2016 ??? Trazodone 06/13/2011 CURRENT THERAPIES: - Tylenol #3 - Celebrex 200mg daily - Pool therapy PAST THERAPIES: - Percocet - FRP 2004 - Cymbalta- felt drugged - Gabapentin- made me feel like a zombie - Tramadol - Oxycodone - Flexeril - Vicodin - Fentanyl patch - Ibuprofen - Lidoderm patch - Nabumetone - Arthrotex - Skelaxin - Amitriptyline - LESI- unsure of benefit (was before 2009) REVIEW OF SYSTEMS: Constitutional: denies fever, chills, weight changes, + fatigue HEENT: denies headaches, vision changes (+dry eyes), difficulty hearing Cardiac: denies chest pain or palpitations Lungs: denies shortness of breath, wheezing, cough GI: denies constipation or diarrhea, nausea or vomiting, black or bloody stool, loss of control of bowel : denies urinary changes or incontinence Neuro: denies changes in attention or orientation; denies dizziness, seizures, tremors Muscloskeletal: denies joint swelling, use of ambulatory aide, falls Skin: denies open sores or rashes, pruritis Psychological/Mood: stressed and frustrated with pain and new doctors; + history anxiety/depression-sees counselor every 1-2 weeks; denies suicidal/homicidal ideations Sleep: trouble falling asleep FUNCTIONAL /SOCIAL Lives with: self Work: disability Interference with activities/ADL: able to care for self and home Exercise/activities: pool therapy two times/week RISK ASSESSMENT Smoking: no Alcohol: no Other drugs: no PHYSICAL EXAMINATION Body mass index is 33.07 kg/(m^2). Visit Vitals ??? BP (!) 151/99 ??? Pulse 72 ??? Ht 154.9 cm (5' 1) ??? Wt 79.4 kg (175 lb) Appearance/ Behavior Well groomed, good eye contact, relaxed, cooperative, normal speech, no acute distress. Seen alone. Tearful when discussing stress and limitations that she has face due to pain. HEENT Sclera non-icteric, conjunctiva clear. Hearing grossly intact. Lungs Clear to ausculation bilaterally Cardiovascular Regular rate and rhythm without murmur Focused musculoskeletal Limited range of motion in the lumbar spine with extension, positive Rosas's bilaterally. Gait steady, no ambulatory aides. RADIOGRAPHIC STUDIES I have personally reviewed images from the following studies: Lumbar Spine X-ray 07/21/16 Fusion of the T11 and T12 vertebrae. Mild narrowing of the L5-S1 disc space. Small endplate osteophytes at L4-5 and L5-S1. Degenerative changes of the facets at L4-5 and L5-S1. ASSESSMENT Ms. Alexandre has chronic low back pain consistent with lumbar spondylosis and facet arthropathy. She had a T12 burst fracture in the back, but currently her low back is the generator of her pain. She has no concerning symptoms of radiculopathy or myelopathy. She has tried multiple medications in the past including antidepressives, anticonvulsants, nonsteroidals, and multiple opioids either with limited improvement or side effects. She does exhibit concerning behaviors for opioid misuse, she admitted today that she has taken both oxycodone and Vicodin from friends in order to allow her to do more social activities. She also seems to have significant stress surrounding family issues and maintaining friends, but she is seeing a counselor every week. PLAN/RECOMMENDATIONS 1. I recommend diagnostic lumbar facet blocks using the medial branch block technique at the bilateral L4-L5 and L5-S1 facet joint levels. Ms. Alexandre exhibits mechanical low back pain and no obvious radicular signs or symptoms and she has no history of spinal fusion at these facet levels. She exhibits pathology on MRI consistent with the facet joints as being the major low back pain generator. If these diagnostic blocks are successful at temporarily blocking at least 80% of her pain, I will recommend that we proceed on with radiofrequency ablation at the same medial branches. If insignificant relief is achieved with this block, we will investigate other causes of her current pain. Ms. Alexandre Mariann discussed all of this at length using anatomical models. All significant risks, benefits, indications, and alternatives were discussed with the patient. She does consent to proceed forward with this this treatment plan. She is not on any blood thinners. 2. Discussed the importance of increasing physical activity a little bit each day in managing chronic pain. I encouraged her to increase her pool therapy to 3 times per week, and also to do daily stretching and try to walk as much as she can. 3. Encouraged her to talk to her counselor about cognitive behavioral therapy for pain management. She said that she is RD discussed this with him and he advised her that there already doing it. 4. Discussed my concerns over her taking oxycodone and Vicodin from friends in order to participate in social activities. I've advised her that this is an illegal activity, and that now she has had a second inconsistent urine which is documented in our chart. I've advised her that her primary care provider will likely see this and that she may decide to taper her off her opioids. 5. Follow-up as needed. Lena Alexandre had the opportunity to ask questions and indicated that all questions were answered to her satisfaction. [facility], MSN, DIRECTOR MEETINGS-BC, MULTI PUNCH OPERATOR Nurse Practitioner [facility] documented in this encounter Plan of Treatment Not on filedocumented as of this encounter Visit Diagnoses Diagnosis Spondylosis of lumbar region without mye lopathy or radiculopathy Lumbosacral spondylosis without myelopat hy Facet arthropathy, lumbar Lumbosacral spondylosis without myelopat hy documented in this encounter Care Teams General Laborer Relationship Specialty Start Date End Date Stephany Allen APRN PCP - General Family Medicine 05/17/16 05/21/19 documented as of this encounter
--- OUTSIDE RECORDS SUMMARY | 2022-05-05 00:44 | XMS_ITS | Encounter Summary ---
:1960 Author Organization [facility] [place] [address] Care Team Providers Name Role Phone Mikala Cortez APRN Primary Care Provider [phone] Encounter Details Date Type Department Care Team Description 11/08/2010 Procedure visit Gastroenterology at [facility], DR SCHMIDT Canceled ([facility] Karen Chavez RN Cancelled) [place] [address] Social History Tobacco Use Types Packs/Day Years Used Date Never Assessed Sex Assigned at Date Recorded Not on file documented as of this encounter Plan of Treatment Not on filedocumented as of this encounter Visit Diagnoses Not on filedocumented in this encounter Care Teams Superintendent Ammunition Storage Relationship Specialty Start Date End Date Mikala Cortez APRN PCP - General 09/13/10 05/16/16 documented as of this encounter
--- OUTSIDE RECORDS SUMMARY | 2022-05-05 00:44 | XMS_ITS | Encounter Summary ---
:1960 Author Organization [facility] [place] [address] Care Team Providers Name Role Phone Stephany Molina APRN Primary Care Provider Encounter Details Date Type Department Care Team Description 09/27/2016 Orders Only Orthopaedics at [facility] Glenn Mendiola Right knee pain, [facility] MD [address] [facility] [place] [address] ORTHOPAEDIC SURGERY [place] [address] Social History Tobacco Use Types Packs/Day Years [...] Not on filedocumented as of this encounter Results XR Knee Standing Alignment AP Lat [place] Right (09/27/2016 4:17 PM EST) Anatomical Region Laterality Modality Right Digital Radiography Specimen (Source) Anatomical Location Collection Method / Collectio n Time Received Time / Laterality Volume Impressions 09/27/2016 4:35 PM EST 1. ??Mild lateral deviation of the right-sided weight-bearing axis. 2. ??Moderate osteoarthropathy of bilate ral knees. 3. ??LEFT ankle fusion without complicat ions. Narrative 09/27/2016 4:35 PM EST EXAMINATION: XR ANKLE MIN 3 VIEWS LEFT (GENERIC), XR KNEE STANDING ALIGNMENT AP LAT [place] RIGHT CLINICAL HISTORY: LEFT ANKLE FUSION CONT INUED PAIN TECHNIQUE: Separate images of the pelvis , knees and feet were acquired in the AP projection with the patient standing. Th yonas images were stitched together to form a composite image of the pelvis and legs allowing for evaluation of lower extremity alignment in the weight bearin g position. ? Frontal lateral and oblique views of the LEFT ankle were also obtained. COMPARISON: None FINDINGS: There is mild lateral deviation of the w eightbearing axis on the RIGHT. The LEFT weightbearing axis is midline. Screw fix ation of the RIGHT lateral tibial plateau is noted. There is moderate oste oarthropathy of bilateral knees characterized by tricompartmental joint space loss, small marginal osteophytes and subchondral sclerotic changes. No si gnificant right-sided knee joint effusion. There has been prior fusion of the LEFT ankle joint. Screws traversing the tibiotalar joint are intact. Procedure Note Cheikh Hussein MD - 09/27/2016Formatti ng of this note might be different from the original. EXAMINATION: XR ANKLE MIN 3 VIEWS LEFT ( GENERIC), XR KNEE STANDING ALIGNMENT AP LAT [place] RIGHT CLINICAL HISTORY: LEFT ANKLE FUSION CONT INUED PAIN TECHNIQUE: Separate images of the pelvis , knees and feet were acquired in the AP projection with the patient standing. Th yonas images were stitched together to form a composite image of the pelvis and legs allowing for evaluation of lower extremity alignment in the weight bearin g position. Frontal lateral and oblique views of the LEFT ankle were also obtained. COMPARISON: None FINDINGS: There is mild lateral deviation of the w eightbearing axis on the RIGHT. The LEFT weightbearing axis is midline. Screw fix ation of the RIGHT lateral tibial plateau is noted. There is moderate oste oarthropathy of bilateral knees characterized by tricompartmental joint space loss, small marginal osteophytes and subchondral sclerotic changes. No si gnificant right-sided knee joint effusion. There has been prior fusion of the LEFT ankle joint. Screws traversing the tibiotalar joint are intact. IMPRESSION 1. Mild lateral deviation of the right-s ided weight-bearing axis. 2. Moderate osteoarthropathy of bilatera l knees. 3. LEFT ankle fusion without complicatio ns. Glenn Mendiola Jr., MD IMG DX ORDERABLES documented in this encounter Visit Diagnoses Diagnosis Right knee pain, unspecified chronicity Right knee pain, unspecified chronicity documented in this encounter Care Teams Nurse Head Relationship Specialty Start Date End Date Stephany Molina, SHARONA PCP - General Family Medicine 05/17/16 05/21/19 documented as of this encounter
--- OUTSIDE RECORDS SUMMARY | 2022-05-05 00:44 | XMS_ITS | Encounter Summary ---
:1960 Author Organization [facility] [place] [address] Care Team Providers Name Role Phone Mikala Cortez APRN Primary Care Provider [phone] Reason for Visit Reason Onset Date Comments GI Problem 01/27/2011 Encounter Details Date Type Department Care Team Description 01/27/2011 Telephone Gastroenterology at [facility] Lambert Humphrey APRN GI Problem [facility] Zach davidson [facility] [place] [address] GASTROENTEROLOGY [phone] DEPT. [place], [place] [address] (Wo rk) Social History Tobacco Use Types Packs/Day Years Used Date Never Assessed Sex Assigned at Date Recorded Not on file documented as of this encounter Miscellaneous Notes Telephone Encounter - Lambert Humphrey - 01/27/2011 3:06 PM EDT Spoke with pt, protonix 40mg qd, working well for reflux and dyspepsia. Dysgeusia, impedance on medsnl. ?dysgeusia ENT related, pt to f/u with pcp. ?nasal flushes. IBS: several loose stools in am. Will consider bentyl 10-20mg qhs, and prn. Colonoscopy 2009 nl. Pt to call gi with progress. documented in this encounter Plan of Treatment Not on filedocumented as of this encounter Visit Diagnoses Not on filedocumented in this encounter Care Teams Purse Maker Relationship Specialty Start Date End Date Mikala Cortez APRN PCP - General 09/13/10 05/16/16 documented as of this encounter
--- OUTSIDE RECORDS SUMMARY | 2022-05-05 00:44 | XMS_ITS | Encounter Summary ---
:1960 Author Organization [facility] Address One [facility] [place] [address] Care Team Providers Name Role Phone Stephany Molina APRN Primary Care Provider Encounter Details Date Type Department Care Team Description 09/27/2016 Hospital Encounter XRay at [facility] Glenn Mendiola Right knee pain, [address] Torsten MD unspecified [place], [place] [facility] chronicity [id number] [place] [phone] ORTHOPAEDIC SURGERY [place], [place] [address] Social History Tobacco Use Types Packs/Day Years [...] on file documented as of this encounter Medications at Time of Discharge Medication Sig Dispensed Refills Start Date End Date atenolol (TENORMIN) 100 mg Take 100 mg by 0 09/22 Tablet mouth daily. prochlorperazine every 8 hours as 0 04/04/2016 (COMPAZINE) 10 mg Tablet needed. Mometasone (NASONEX) 50 by Nasal route as 0 mcg/Actuation [place] needed. acetaminophen (TYLENOL) 500 Take 1,000 mg by 0 mg tablet mouth every 6 hours as needed. ALBUTEROL INHL Inhale 2 puffs 0 into the lungs. As directed/as needed fluticasone-salmeterol Inhale 1 puff into 0 (ADVAIR DISKUS) 250-50 the lungs 2 times mcg/dose diskus inhaler daily. MULTI-VITAMIN ORAL Take 1 tablet by 0 mouth daily. Levalbuterol Tartrate 0 08/03/2010 (XOPENEX HFA) 45 mcg/Actuation inhaler ibuprofen (ADVIL;MOTRIN) 0 09/19/2016 08/21/2019 800 mg Tablet tiZANidine (ZANAFLEX) 2 mg every 8 hours as 0 11/25/2019 Tablet needed. WELCHOL 625 mg Tablet 0 07/11/2016 NEXIUM 40 mg Capsule, Take 40 mg by 0 07/01/2016 03/17/2021 Delayed Release(E.C.) mouth daily. lisinopril 0 06/12/2016 08/21/2019 (PRINIVIL;ZESTRIL) 10 mg Tablet melatonin 3 mg Tablet Take by mouth. 0 08/21/2019 LACTOBACILLUS RHAMNOSUS GG Take 1 capsule by 0 08/21/2019 (PROBIOTIC ORAL) mouth daily. Cholecalciferol, Vitamin Take 1 tablet by 0 08/21/2019 D3, (VITAMIN D) 1,000 unit mouth daily. Tab atenolol (TENORMIN) 50 mg Take 75 mg by 0 08/21/2019 tablet mouth nightly. 75 mg = 1&1/2 tablets clonAZEpam (KLONOPIN) 0.5 Take 0.5 mg by 0 08/21/2019 mg tablet mouth 2 times daily. fish oil-omega-3 fatty 0 08/03/2010 acids 1,000 mg capsule documented as of this encounter Plan of Treatment Not on filedocumented as of this encounter Procedures Procedure Name Priority Date/Time Associated Diagnosis Comme nts XR KNEE STANDING Routine 09/27/2016 4:17 PM Right knee pain, R esults for this ALIGNMENT AP LAT EST unspecified procedure a re in [facility] chronicity the result s RIGHT section. documented in this encounter Results XR Knee Standing Alignment [facility] Lat [facility] [place] Right (09/27/2016 4:17 PM EST) Anatomical Region [...] Diagnoses Diagnosis Right knee pain, unspecified chronicity documented in this encounter Care Teams Box Office Clerk Relationship Specialty Start Date End Date Stephany Molina APRN PCP - General Family Medicine 05/17/16 05/21/19 documented as of this encounter
--- OUTSIDE RECORDS SUMMARY | 2022-05-05 00:44 | XMS_ITS | Encounter Summary ---
:1960 Author Organization [facility] [place] [address] Care Team Providers Name Role Phone Stephany Molina APRN Primary Care Provider Encounter Details Date Type Department Care Team Description 07/21/2016 Hospital Encounter Radiology Library at Kassy Rubio MD Pain [facility] [place] [address] [place] [address] [phone] (Wo rk) Social History Tobacco Use Types [...] one occasion? Comment: 2-3 times per year, denflorentin h/o 6 ETOH abuse Sex Assigned at Date Recorded Not on file documented as of this encounter Medications at Time of Discharge Medication Sig Dispensed Refills Start Date End Date prochlorperazine every 8 hours as 0 04/04/2016 (COMPAZINE) 10 mg Tablet needed. Mometasone (NASONEX) 50 by Nasal route as 0 mcg/Actuation [place] needed. acetaminophen (TYLENOL) 500 Take 1,000 mg [...] 0 08/03/2010 (XOPENEX HFA) 45 mcg/Actuation inhaler WELCHOL 625 mg Tablet 0 07/11/2016 acetaminophen-codeine 0 07/10/201604/2016 (TYLENOL #3) 300-30 mg Tablet NEXIUM 40 mg Capsule, Take 40 mg by 0 07/01/2016 03/17/2021 Delayed Release(E.C.) mouth daily. lisinopril 0 06/12/2016 08/21/2019 (PRINIVIL;ZESTRIL) 10 mg Tablet fluticasone (FLONASE) 50 1 spray daily. 0 08/03/2016 mcg/actuation [place], Suspension melatonin 3 mg Tablet Take by mouth. 0 08/21/2019 ferrous sulfate 325 mg (65 Take 325 mg by 0 09/27/2016 mg iron) Tablet mouth daily (with breakfast). potassium chloride Take 10 mEq by 0 (MICRO-K) 10 mEq Capsule, mouth 2 times Sustained Release daily. celecoxib (CELEBREX) 200 mg Take 200 mg by 0 09/27/2016 capsule mouth daily. LACTOBACILLUS RHAMNOSUS GG Take 1 capsule by [...] fatty 0 08/03/2010 acids 1,000 mg capsule levalbuterol (XOPENEX) 1.25 0 08/03/20 10 09/27/2016 mg/3 mL nebulizer solution documented as of this encounter Plan of Treatment Not on filedocumented as of this encounter Procedures Procedure Name Priority Date/Time Associated Diagnosis Comme nts FILM LIBRARY Routine 07/21/2016 12:00 AM Pain Results for this STORAGE ONLY DX EDT procedure ar e in SPINE the results section. documented in this encounter Results Film Library- Storage Only DX Spine (07/21/2016 12:00 AM EDT) Specimen (Source) Anatomical Location Collection Method / Collectio n Time Received Time / Laterality Volume Narrative TROY - 07/21/2016 4:45 PM EDT This exam is for storage only and is aut o-finalizing. Kassy Rubio MD IMG FILM LIBRARY ORDERABLES Performing Organization Address City/State/ZIP Code Phon e Number [place], [place] documented in this encounter Visit Diagnoses Diagnosis Pain Generalized pain documented in this encounter Care Teams Fitness Sales Consultant Relationship Specialty Start Date End Date Stephany Molina APRN PCP - General Family Medicine 05/17/16 05/21/19 documented as of this encounter
--- OUTSIDE RECORDS SUMMARY | 2022-05-05 00:44 | XMS_ITS | Encounter Summary ---
:1960 Author Organization [place] [address] Care Team Providers Name Role Phone Mikala Cortez APRN Primary Care Provider [phone] Encounter Details Date Type Department Care Team Description 06/12/2011 Abstract Urology at [facility] Cadence Peters, [place] [address] Social History Tobacco Use Types Packs/Day Years Used Date Never Assessed Sex Assigned at Date Recorded Not on file documented as of this encounter Plan of Treatment Not on filedocumented as of this encounter Visit Diagnoses Not on filedocumented in this encounter Care Teams Museum Informatics Specialist Relationship Specialty Start Date End Date Mikala Cortez APRN PCP - General 09/13/10 05/16/16 documented as of this encounter
--- OUTSIDE RECORDS SUMMARY | 2022-05-05 00:44 | XMS_ITS | Encounter Summary ---
:1960 Author Organization [facility] [place] [address] Care Team Providers Name Role Phone Stephany Molina APRN Primary Care Provider Encounter Details Date Type Department Care Team Description 09/27/2016 Hospital Encounter XRay at [facility] Glenn Mendiola Chronic pain of left [address] Torsten MD ankle [facility] [address] [place] [phone] ORTHOPAEDIC SURGERY [place], [place] [address] Social History Tobacco Use Types [...] 50 by Nasal route as 0 mcg/Actuation [place] needed. acetaminophen (TYLENOL) 500 Take 1,000 mg [...] Priority Date/Time Associated Diagnosis Comme nts XR ANKLE MIN 3 Routine 09/27/2016 4:17 PM Chronic pain of left Results for this VIEWS LEFT EST ankle procedure are i n the results section. documented in this encounter Results XR Ankle Min 3 views Left (Generic) (09/27/2016 4:17 PM EST) Anatomical Region Laterality Modality Ankle Left Digital Radiography Specimen (Source) Anatomical Location Collection [...] in this encounter Visit Diagnoses Diagnosis Chronic pain of left ankle documented in this encounter Care Teams Casino Slot Supervisor Relationship Specialty Start Date End Date Stephany Molina APRN PCP - General Family Medicine 05/17/16 05/21/19 documented as of this encounter
--- OUTSIDE RECORDS SUMMARY | 2022-05-05 00:44 | XMS_ITS | Encounter Summary ---
:1960 Author Organization [facility] [place] [address] Care Team Providers Name Role Phone Marko Duffy SHARONA Primary Care Provider Encounter Details Date Type Department Care Team Description 04/07/2020 Laboratory Appointment Lab 3L Ene Kelly Chronic kidney disease, unspecified CKD stage; [facility] CKD (chronic kidney disease) stage 3, GFR 30-59 ml/[place] [id number] Social History Tobacco Use Types Packs/Day Years [...] Name Priority Date/Time Associated Diagnosis Comme nts HC VENIPUNCTURE Routine 04/07/2020 1:55 PM Chronic kidney Resu lts for this EDT disease, unspecified procedu re are in CKD stage the results section. documented in this encounter Results (ABNORMAL) Basic Metabolic Panel (non-fasting) (04/07/2020 1:55 PM EDT) P athologist Signature Glucose Lvl 135 65 - 199 [facility] mg/dL [facility] Comment: Diabetes: >=200 mg/dL plus symp toms BUN 16 8 - 18 mg/dL [facility] Creatinine 1.13 0.70 - 1.20 mg/dL [facility] Sodium 142 135 - 145 mmol/L [facility] Potassium 4.0 3.5 - 5.0 mmol/L [facility] Comment: Please note: ??Patients with WBC >100,00 0 may have falsely elevated Potassium levels. ??For accurate Potassium quantif ication in these patients send serum separator tube (gold top) for subsequent determinations. ??Contact the Clinical Chemistry Laboratory if there are any qu estions. Chloride 104 98 - 107 mmol/L [facility] CO2 24 22 - 31 mmol/L [facility] Anion Gap 14 5 - 15 mmol/L [facility] Calcium 8.2 (L) 8.5 - 10.5 mg/dL [facility] Estimated GFR 53 (L) >=60 mL/min/1.73 m?? [facility] Comment: The eGFR was calculated using the CKD-EP I equation. As with all creatinine based estimates of kidney function, eGFR values calculated with the CKD-EPI equation are not accurate in patients wi th acute kidney failure, extremes of body mass or the acutely ill. [email or web address] [place] eGFR 61 >=60 mL/min/1.73 m?? [facility] Comment: The eGFR was calculated using the CKD-EP I equation. As with all creatinine based estimates of kidney function, eGFR values calculated with the CKD-EPI equation are not accurate in patients wi th acute kidney failure, extremes of body mass or the acutely ill. [email or web address] [place] Specimen Anatomical Collection Method Collection Time Receive d Time (Source) Location / / Volume Laterality Blood specimen 04/07/2020 1:55 PM 020 2:05 (specimen) EDT PM EDT Resulting Agency Comment Spec In Lab Benitez Adames MD CHEMISTRY ORDERABLES Performing Organization Address City/State/[place] [address] documented in this encounter Visit Diagnoses Diagnosis Chronic kidney disease, unspecified CKD stage CKD (chronic kidney disease) stage 3, GF R 30-59 ml/min Chronic kidney disease, Stage III (moder ate) documented in this encounter Care Teams Family Worker Relationship Specialty Start Date End Date Marko Duffy APRN PCP - General Family Medicine 07/10/19 08/22/20 [address] [place] [address] documented as of this encounter
--- OUTSIDE RECORDS SUMMARY | 2022-05-05 00:44 | XMS_ITS | Encounter Summary ---
:1960 [place] [address] Care Team Providers Name Role Phone Marko Duffy SHARONA Primary Care Provider Encounter Details Date Type Department Care Team Description 11/21/2019 [facility] [place] [address] [place] [id number] [phone] (Wo rk) Social History Tobacco Use Types [...] encounter Procedures Procedure Name Priority Date/Time Associated Comments Diagnosis FILM LIBRARY STORAGE Routine 11/21/2019 9:18 PM R esults for this ONLY ULTRASOUND EST procedure ar e in STUDY the results section. documented in this encounter Results Film Library- Storage Only Ultrasound Study (11/21/2019 9:18 PM EST) Specimen (Source) Anatomical Location Collection Method / Collectio n Time Received Time / Laterality Volume Narrative RAD - 11/21/2019 9:18 PM EST This exam is auto-finalizing. It's purpo se is for storage only. Benitez Adames MD IMG FILM LIBRARY ORDERABLES Performing Organization Address City/State/ZIP Code Phon e Number RAD [place], [place] documented in this encounter Visit Diagnoses Not on filedocumented in this encounter Care Teams Assisted Living Care Manager Relationship Specialty Start Date End Date Marko Duffy APRN PCP - General Family Medicine 07/10/19 08/22/20 [address] [place] [address] documented as of this encounter
--- OUTSIDE RECORDS SUMMARY | 2022-05-05 00:44 | XMS_ITS | Encounter Summary ---
:1960 Author Organization [place] [address] Care Team Providers Name Role Phone Mikala Cortez APRN Primary Care Provider [phone] Encounter Details Date Type Department Care Team Description 06/13/2011 Hospital Encounter Ultrasound at [facility] [place] [address] Social History Tobacco Use Types Packs/Day Years Used Date Never Smoker Smokeless Tobacco: Never Used Sex Assigned at Date Recorded Not on file documented as of this encounter Medications at Time of Discharge Medication Sig Dispensed Refills Start Date End Date Mometasone (NASONEX) 50 by Nasal route as 0 mcg/Actuation [place] needed. acetaminophen (TYLENOL) Take 1,000 mg by 0 500 mg tablet mouth every 6 hours as needed. ALBUTEROL INHL Inhale 2 puffs into 0 the lungs. As directed/as needed fluticasone-salmeterol Inhale 1 puff into 0 (ADVAIR DISKUS) 250-50 the lungs 2 times mcg/dose diskus inhaler daily. MULTI-VITAMIN ORAL Take 1 tablet by 0 mouth daily. Levalbuterol Tartrate 0 08/03/2010 (XOPENEX HFA) 45 mcg/Actuation inhaler loratadine (CLARITIN) 10 Take 10 mg by mouth 0 07/20/2016 mg tablet daily. polyethylene glycol Take 17 g by mouth 0 07/20/2016 (MIRALAX) 17 gram packet daily. celecoxib (CELEBREX) 200 Take 200 mg by 0 09/27/2016 mg capsule mouth daily. LACTOBACILLUS RHAMNOSUS GG Take 1 capsule by 0 08/21/2019 (PROBIOTIC ORAL) mouth daily. Cholecalciferol, Vitamin Take 1 tablet by 0 08/21/2019 D3, (VITAMIN D) 1,000 unit mouth daily. Tab atenolol (TENORMIN) 50 mg Take 75 mg by mouth 0 08/21/2019 tablet nightly. 75 mg = 1&1/2 tablets clonAZEpam (KLONOPIN) 0.5 Take 0.5 mg by 0 08/21/2019 mg tablet mouth 2 times daily. pantoprazole (PROTONIX) 40 Take 40 mg by mouth 0 07/20/2016 mg tablet daily. fish oil-omega-3 fatty 0 08/03/2010 acids 1,000 mg capsule levalbuterol (XOPENEX) 0 08/03/2010 1.25 mg/3 mL nebulizer solution documented as of this encounter Plan of Treatment Not on filedocumented as of this encounter Procedures Procedure Name Priority Date/Time Associated Comments Diagnosis US RETROPERITONEAL Routine 06/13/2011 2:34 Result s for this COMPLETE PM EDT procedure are i n the results section. documented in this encounter Results US RETROPERITONEAL COMPLETE (06/13/2011 2:34 PM EDT) Anatomical Region Laterality Modality Abdomen Ultrasound Specimen (Source) Anatomical Collection Method Collection Time Re ceived Time Location / / Volume Laterality 06/13/2011 2:34 PM EDT Narrative 06/13/2011 4:14 PM EDT ?Adult Renal R eport ? (Signed Final 06/13/2011 04 :13 pm) Patient Info ID: ? [id number] ? : ??60 (51 yrs) Name: ? LAURA Heller ?Visit Date: 06/13/2011 02:31 pm ? [facility] Procedures URETRO - Retroperitoneal Complete - 002 [id number] ? [id number] Indications Right stone. ??Left cyst vs dilated wallace yx Right Kidney Size (cm) ?L: ??9.4 Cortical Thickness: ?Normal Cortical Echogenicity: ?? Normal Hydronephrosis: ?No sonogr aphic evidence Left Kidney Size (cm) ?L: ??9.4 Cortical Thickness: ?Normal Cortical Echogenicity: ?? Normal Hydronephrosis: ?No sonogr aphic evidence ------- Lesions ------- # ?Date ?Location ?Description ?L ?AP ? TV (cm) 1 ?06/13/11 ?Mid ? Simple cyst ?0.4 ?0.4 ?0.3 Comment: ?Linear echogenic focus wi th associated twinkle ? artifact question vas cualr calcification versus ? several adjacent smal l non-obstructing calculi Urinary Bladder Pre-void (cm) ? L: ??3.8 ? A P: ??4.2 ? TV: ??5.2 Vol (ml): ?43.5 Comment: ?Partially distended, norm al contour Impression Ultrasound - ??Retroperitoneal Complete - Summary Linear echogenic focus with associated twinkle artifact question vascualr calcification versus several adjacent small non-obstructing calculi Otherwise normal renal and bladder ultr asound. I ??viewed the images and agree with thompson morrissey above interpretation. Thank you for allowing us to participat e in the care of LAURA HARRIS. Please do not hesit ate to call if you have any questions. ? Aracelis escobar MD Electronically Signed Final Report ?? 04:13 pm Procedure Note Aracelis Lindquist MD - 05/23 Adult Renal Report (Signed Final 06/13/2011 04:13 pm) Patient Info ID: [id number] : 60 (51 yrs ) Name: LAURA Heller Visit Date: 06/13/2011 02:31 pm [facility] Procedures URETRO - Retroperitoneal Complete - 002 [id number] Indications Right stone. Left cyst vs dilated calyx Right Kidney Size (cm) L: 9.4 Cortical Thickness: Normal Cortical Echogenicity: Normal Hydronephrosis: No sonographic evidence Left Kidney Size (cm) L: 9.4 Cortical Thickness: Normal Cortical Echogenicity: Normal Hydronephrosis: No sonographic evidence ------- Lesions ------- # Date Location Description L AP TV (cm ) 1 06/13/11 Mid Simple cyst 0.4 0.4 0.3 Comment: Linear echogenic focus with as sociated twinkle artifact question vascualr calcificatio n versus several adjacent small non-obstructing calculi Urinary Bladder Pre-void (cm) L: 3.8 AP: 4.2 TV: 5.2 Vol (ml): 43.5 Comment: Partially distended, normal co ntour Impression Ultrasound - Retroperitoneal Complete - Summary Linear echogenic focus with associated twinkle artifact question vascualr calcification versus several adjacent small non-obstructing calculi Otherwise normal renal and bladder ultr asound. I viewed the images and agree with the above interpretation. Thank you for allowing us to participat e in the care of LAURA Pina HARRIS. Please do not hesit ate to call if you have any questions. Aracelis Cobb MD Electronically Signed Final Report 06/13 04:13 pm Arnie Woodall Jr., MD IMG US GEN ORDERABLES documented in this encounter Visit Diagnoses Not on filedocumented in this encounter Care Teams Canvas Cutter Hand Relationship Specialty Start Date End Date Mikala Cortez, CRIME PREVENTION POLICE OFFICER PCP - General 09/13/10 05/16/16 documented as of this encounter
--- OUTSIDE RECORDS SUMMARY | 2022-05-05 00:44 | XMS_ITS | Encounter Summary ---
:1960 Author Organization [facility] [place] [address] Care Team Providers Name Role Phone Marko Duffy APRN Primary Care Provider Reason for Visit Reason Comments Skin Check Encounter Details Date Type Department Care Team Description 06/11/2020 Office Visit Dermatology at [facility] Benitez King MD Neurodermatitis [address] [place] [address] [facility] [place] [address] [place] [address] [phone] (Wo rk) Social History Tobacco Use Types [...] on file documented as of this encounter Progress Notes Benitez King MD - 06/11/2020 2:15 PM EDT Problem: Natalia Paredes is a 60-year-old woman who is referred today by Marko Duffy for evaluation of a ongoing dermatitis. Apparently is been there for about a year and tends to burn and sting. This was biopsied andapparently the punch biopsy results were consistent with allergic drug eruption although I do not have the report today and I do not see it on [facility] website. Patient states that she is disabled at home with chronic pain following back injury. Because the pandemic she has not been able to get out today and why and physical therapy for exercise and to the pool at the comforting where she used to gofor PT directed exercise as well. She is been sitting at home watching TV lying on the sofa and becoming more immobile she states. Patient lives at home by herself does not have any cats or dogs that she is allergic to them. The dermatitis is interestingly is present on the legs and arms. Patient is seen in consultation today for Marko Duffy APRN. Physical examination reveals a pleasant 60-year-old woman who has excoriated papules in various stages of healing primarily on the lower anterior shins and a few on the dorsal forearms. She does not have any lesions in the chest or back. She has no facial lesions. The knees appear to be excoriations and the patient does admit to manipulating them extensively. Assessment plan: Self excoriation disorder/neurodermatitis 1. Clinical findings today are not consistent with allergic drug eruption. 2. Discussed using OTC Sarna lotion for symptomatic relief of burning stinging itching at the sites 3. Patient knows she must try not to take and scratch at them.. Wear cotton gloves during the day tohelp prevent this from occurring. 4. Patient's frustration with her disability and associated pain may be in fact playing a role with the neurodermatitis. She was previously taking 800 mg of ibuprofen 3-4 times a day until she was toldto stop because of developing renal disease. 5. Patient has a appointment with her PCP coming up in early June and will explore other treatment options at that time for her chronic pain. 6. Follow-up here will be PRN Cc: Marko Duffy APRN documented in this encounter Plan of Treatment Not on filedocumented as of this encounter Visit Diagnoses Diagnosis Neurodermatitis Lichenification and lichen simplex chron icus documented in this encounter Care Teams Molding Fitter Relationship Specialty Start Date End Date Marko Duffy APRN PCP - General Family Medicine 07/10/19 08/22/20 [address] [place] [address] documented as of this encounter
--- OUTSIDE RECORDS SUMMARY | 2022-05-05 00:44 | XMS_ITS | Encounter Summary ---
:1960 Author Organization [facility] [place] [address] Care Team Providers Name Role Phone Stephany Molina APRN Primary Care Provider Encounter Details Date Type Department Care Team Description 09/13/2016 Telephone Pain Management at Claudia Brantley, [place] [address] Social History Tobacco Use Types Packs/Day [...] this encounter Miscellaneous Notes Telephone Encounter - Claudia Tirado RN - 09/13/2016 3:18 PM EST Patient reports she canceled procedure scheduled for 09/15/2016 a few days ago. She will call to reschedule. Claudia Tirado RN documented in this encounter Plan of Treatment Not on filedocumented as of this encounter Visit Diagnoses Not on filedocumented in this encounter Care Teams Emulsion Coater Relationship Specialty Start Date End Date Stephany Molina APRN PCP - General Family Medicine 05/17/16 05/21/19 documented as of this encounter
--- OUTSIDE RECORDS SUMMARY | 2022-05-05 00:44 | XMS_ITS | Encounter Summary ---
:1960 Author Organization [facility] [place] [address] Care Team Providers Name Role Phone Unavailable Primary Care Provider Unavailable Encounter Details Date Type Department Care Team Description 10/05/2009 Ancillary Procedure Radiology Library at Destinee Bhatt APRN [facility] [address] [place] [address] [facility] [phone] [place] [address] (Work) [phone] Social History Tobacco Use Types Packs/Day Years Used Date Never Assessed Sex Assigned at Date Recorded Not on file documented as of this encounter Plan of Treatment Not on filedocumented as of this encounter Procedures Procedure Name Priority Date/Time Associated Diagnosis Comme nts FILM LIBRARY Routine 10/05/2009 12:00 AM Results for this STORAGE ONLY MAMMO EST procedure are in the results section. documented in this encounter Results Film Library- Storage Only Mammo (10/05/2009 12:00 AM EST) Specimen (Source) Anatomical Location Collection Method / Collectio n Time Received Time / Laterality Volume Narrative TROY - 02/27/2022 3:18 PM EDT This exam is auto-finalizing. It's purpo se is for storage only. Destinee Bhatt APRN IMG FILM LIBRARY ORDERABLES Performing Organization Address City/State/ZIP Code Phon e Number [place], [place] documented in this encounter Visit Diagnoses Not on filedocumented in this encounter
--- OUTSIDE RECORDS SUMMARY | 2022-05-05 00:44 | XMS_ITS | Encounter Summary ---
:1960 [place] [address] Care Team Providers Name Role Phone Mikala Cortez APRN Primary Care Provider [phone] Encounter Details Date Type Department Care Team Description 08/03/2010 Orders Only Lab [facility] Lambert watson [facility] Zach davidson [place] [address] [place] [address] [phone] (Wo rk) Social History Tobacco Use Types Packs/Day Years Used Date Never Assessed Sex Assigned at Date Recorded Not on file documented as of this encounter Plan of Treatment Not on filedocumented as of this encounter Procedures Procedure Name Priority Date/Time Associated Comments Diagnosis DIFFERENTIAL, Routine 08/03/2010 2:58 PM Results for this AUTOMATED EDT procedure are i n the results section. IRON AND TIBC Routine 08/03/2010 2:58 PM Results for this EDT procedure are i n the results section. CBC (WITH DIFF) Routine 08/03/2010 2:58 PM Result s for this EDT procedure are i n the results section. FOLATE, SERUM Routine 08/03/2010 2:58 PM Results for this EDT procedure are i n the results section. VITAMIN B12 Routine 08/03/2010 2:58 PM Results f or this EDT procedure are i n the results section. COMPREHENSIVE Routine 08/03/2010 2:58 PM Results for this METABOLIC PANEL EDT procedure ar e in (NON-FASTING) the results section. documented in this encounter Results (ABNORMAL) IRON AND TIBC (08/03/2010 2:58 PM EDT) athologist Signature Iron 59 30 - 150 CERNER mcg/dL MILLENNIUM TIBC 367 250 - 450 CERNER mcg/dL MILLENNIUM Iron Saturation 16 (L) 20 - 50 % CERNER MILLENNIUM Specimen Anatomical Collection Method Collection Time Receive d Time (Source) Location / / Volume Laterality Blood specimen 08/03/2010 2:58 PM 010 3:04 (specimen) EDT PM EDT Tracia O'Faby COMIC BOOK DESIGNER CHEMISTRY ORDERABLES Performing Organization Address City/[facility]/ZIP Code Phon e Number [address] [facility] FOLATE (08/03/2010 2:58 PM EDT) athologist Signature Folate Lvl >20.0 7.4 - 35.0 CERNER ng/mL [facility] Specimen Anatomical Collection Method Collection Time Receive d Time (Source) Location / / Volume Laterality Blood specimen 08/03/2010 2:58 PM 010 3:04 (specimen) EDT PM EDT Tracia O'Faby COMIC BOOK DESIGNER CHEMISTRY ORDERABLES Performing Organization Address City/[facility]/ZIP Code Phon e Number [address] [facility] VITAMIN B12 (08/03/2010 2:58 PM EDT) athologist Signature Vitamin B-12 591 207 - 974 CERNER pg/mL [facility] Specimen Anatomical Collection Method Collection Time Receive d Time (Source) Location / / Volume Laterality Blood specimen 08/03/2010 2:58 PM 010 3:04 (specimen) EDT PM EDT Tracia O'Faby COMIC BOOK DESIGNER CHEMISTRY ORDERABLES Performing Organization Address City/[facility] [place] [address] [facility] MILLENNIUM (ABNORMAL) COMPREHENSIVE METABOLIC PANEL (NON-FASTING) (08/03/2010 2:58 PM EDT) P athologist Signature Glucose Lvl 90 <=199 mg/dL CERNER MILLENNIUM Comment: Diabetes: >=200 mg/dL plus symp toms BUN 13 8 - 18 mg/dL CERNER MILLENNIUM Creatinine 0.76 0.70 - 1.20 mg/dL CERNER MILL ENNIUM Sodium 143 135 - 145 mmol/L CERNER TERRA NIUM Potassium 3.5 3.5 - 5.0 mmol/L CERNER TERRA NIUM Comment: Please note: ??Patients with WBC >100,00 0 may have falsely elevated Potassium levels. ??For accurate Potassium quantif ication in these patients send serum separator tube (gold top) for subsequent determinations. ??Contact the Clinical Chemistry Laboratory if there are any qu estions. Chloride 102 98 - 107 mmol/L CERNER MILLENN IUM CO2 27 22 - 31 mmol/L CERNER MILLENNI UM Anion Gap 14 5 - 15 mmol/L CERNER MILLENNIU M Calcium 9.5 8.5 - 10.5 mg/dL CERNER TRERA NIUM Total Protein 7.5 6.4 - 8.3 gm/dL CERNER MIL LENNIUM Albumin 4.6 3.2 - 5.2 gm/dL CERNER MILLENN IUM AST 36 (H) 0 - 30 unit/L CERNER MILLENNIU M ALT 61 (H) 0 - 30 unit/L CERNER MILLENNIU M Alk Phos 136 (H) 40 - 104 unit/L CERNER MILLENN IUM Total Bilirubin 0.5 0.2 - 1.3 mg/dL CERNER M ILLENNIUM Bili, Direct 0.1 0.0 - 0.3 mg/dL CERNER MILL ENNIUM Estimated GFR >60 >=60 CERNER MILLENNIU M Comment: The National Kidney Disease Education Pr ogram (NKDEP) has recommended all laboratories report estimated GFR (eGFR) along with plasma creatinine measurements to assist you with recognit ion of early kidney disease. Caveats: ??Plasma creatinine should be a t steady-state (unchanged within the past week). ??Patient age > = 18 years, and for Americans multiply eGFR by 1.2. At present, NKDEP does NOT recommend usi ng the MDRD equation for drug dosing purposes and pharmacists should continue to use their current dosing methods. In addition, numerical eGFR values great er than 60 ml/min/1.73 square meters should be treated as > 60, and not an ex act number due to greater inaccuracies at these higher values. Per NKDEP, they classify normal renal function as any GFR >60ml/min/1.73 square meters; chronic kidney disease wh en GFR <60, and renal failure when GFR <15. ??This calculation may not be valid for patients with atypical muscle mass (very lean or obese), acute renal failur e, and in patients with diabetic kidney disease. References: http://nkdep.nih.gov/resources/NKDEP_Sug gestn4Labs_0606_508.pdf http://www.kidney.org/professionals/kls/ pdf/faq_gfr.pdf Specimen Anatomical Collection Method Collection Time Receive d Time (Source) Location / / Volume Laterality Blood specimen 08/03/2010 2:58 PM 010 3:04 (specimen) EDT PM EDT Lambert Humphrey APRN CHEMISTRY ORDERABLES Performing Organization Address City/State/ZIP Code Phon e Number [place] [phone] CERNER MILLENNIUM REFLEX LAB-A-DIFF (08/03/2010 2:58 PM EDT) P athologist Signature Neutrophils % 66.4 34.0 - CERNER 71.0 % MILLENNIUM Neutr Abs (ANC) 5.51 1.50 - CERNER 6.30 MILLENNIUM x10(3)/mcL Lymphocytes % 22.2 19.0 - CERNER 53.0 % MILLENNIUM Lymphocytes Abs 1.9 1.0 - 3.6 CERNER x10(3)/mcL MILLENNIUM Monocytes % 9.7 4.0 - 13.0 CERNER % MILLENNIUM Monocyte Abs 0.8 0.2 - 1.0 CERNER x10(3)/mcL MILLENNIUM Eosinophils % 1.3 0.0 - 7.0 CERNER % MILLENNIUM Eosinophils Abs 0.1 0.0 - 0.5 CERNER x10(3)/mcL MILLENNIUM Basophils % 0.2 0.0 - 2.0 CERNER % MILLENNIUM Basophils Abs 0.0 0.0 - 0.2 CERNER x10(3)/mcL MILLENNIUM Immature Gran % 0.20 0.00 - CERNER 0.66 % MILLENNIUM Comment: Immature granulocytes(IG's)percentage an d absolute count will include metamyelocytes, myelocytes, and promyelo cytes. Blood smears from CBC's yielding IG's will be scanned manually for concor dance. If this scan disagrees with the automated IG or if promyelocytes are not ed, a manual differential will be performed. Amarilis Gran Abs 0.02 0.00 - 0.05 x10(3)/mcL CER NER MILLENNIUM Specimen Anatomical Collection Method Collection Time Receive d Time (Source) Location / / Volume Laterality Blood specimen 08/03/2010 2:58 PM 010 3:04 (specimen) EDT PM EDT Lambert Humphrey APRN HEMATOLOGY ORDERABLES Performing Organization Address City/State/[place] [address] CERNER MILLENNIUM (ABNORMAL) CBC (08/03/2010 2:58 PM EDT) P athologist Signature WBC 8.3 4.0 - 10.0 CERNER x10(3)/mcL MILLENNIUM RBC 4.34 3.93 - CERNER 5.22 MILLENNIUM x10(6)/mcL Hemoglobin 12.7 11.2 - CERNER 15.7 gm/dL MILLENNIUM Hematocrit 41.1 34.0 - CERNER 45.0 % MILLENNIUM MCV 94.7 (H) 79.0 - CERNER 94.0 fL MILLENNIUM MCH 29.3 26.6 - CERNER 32.2 pg MILLENNIUM MCHC 30.9 (L) 32.0 - CERNER 36.5 gm/dL MILLENNIUM Platelets 257 145 - 370 CERNER x10(3)/mcL MILLENNIUM RDWSD 48.8 (H) 35.0 - CERNER 46.0 fL MILLENNIUM RDWCV 14.1 10.9 - CERNER 14.4 % MILLENNIUM MPV 10.4 9.0 - 12.0 CERNER fL MILLENNIUM Specimen Anatomical Collection Method Collection Time Receive d Time (Source) Location / / Volume Laterality Blood specimen 08/03/2010 2:58 PM 010 3:04 (specimen) EDT PM EDT Lambert Humphrey APRN HEMATOLOGY ORDERABLES Performing Organization Address City/State/ZIP Code Phon e Number [place] [phone] [facility] documented in this encounter Visit Diagnoses Not on filedocumented in this encounter Care Teams Call Or Contact Centre Manager Relationship Specialty Start Date End Date Mikala Cortez APRN PCP - General 09/13/10 05/16/16 documented as of this encounter
--- OUTSIDE RECORDS SUMMARY | 2022-05-05 00:44 | XMS_ITS | Encounter Summary ---
:1960 Author Organization [facility] [place] [address] Care Team Providers Name Role Phone Stephany Molina APRN Primary Care Provider Reason for Visit Reason Comments Left Knee Pain Left Ankle Pain Consultation ([facility]) - Closed Specialty Diagnoses / Procedures Referred By Contact Refer red To Contact Orthopaedics Diagnoses Back pain, left ankle pain Stephany Molina APRN [facility] [address] [place] [phone] [address] [place] [address] Referral ID Status Reason Start Date Expiration Date Visits V isits Requested Authorized [id number] Closed Consult, 09/19/2016 09/19/2017 1 1 [facility] Encounter Details Date Type Department Care Team Description 09/27/2016 Office Visit Orthopaedics at [facility] Glenn Mendiola Hx of multiple trauma [facility] [address] ORTHOPAEDIC SURGERY [place], [place] [address] Social History Tobacco Use Types [...] one occasion? Comment: 2-3 times per year, myranda h/o 6 ETOH abuse Sex Assigned at Date Recorded Not on file documented as of this encounter Last Filed Vital Signs Vital Sign Reading Time Taken Comments Blood Pressure 154/90 09/27/2016 4:30 PM EST Pulse 71 09/27/2016 4:30 PM EST Temperature - - Respiratory Rate - - Oxygen Saturation - - Inhaled Oxygen Concentration - - Weight 82.4 kg (181 lb 9.6 oz) 09/27/2016 4:30 PM EST Height 154.9 cm (5' 1) 09/27/2016 4:30 PM EST Body Mass Index 34.31 09/27/2016 4:30 PM EST documented in this encounter Progress Notes Glenn Mendiola Jr., MD - 09/27/2016 4:00 PM EST Patient Active Problem List Diagnosis Date Noted ??? Hx of multiple trauma 09/27/2016 ??? Liver disease ??? Hypertension ??? Anxiety ??? Depression ??? Hypercholesterolemia ??? GERD (gastroesophageal reflux disease) ??? Asthma ??? Hyperlipidemia ??? Nephrolithiasis 06/13/2011 ??? Reflux 06/12/2011 Date of injury- 02/19/01 CLARIFICATION NEEDED: BLANK PROBLEM: History of multiple injuries dating back to <___>. Patient fell through a garage roof or ceiling and landed on the garage floor 10-12 feet down, sustained a pilon fracture on the left, a tibial plateau fracture on the right, and a burst fracture of T12. Patient comes in today and has had multiple issues including depression, anxiety, and has a little difficulty with straightforward communication, as she has trouble organizing thoughts, but basically related that her primary care physician had retired; she was coming under the care of a new person who was trying her on medications. There had been past issues with narcotic medication, which she finds helpful when she has to walk a long way or be particularly active, but for which she suggests she was only using on occasion but must have had a narcotic contract and violated it by using someone else's Vicodin because of a fair that she wanted to go to and I guess [facility] fairs or state fairs are a big thing for her and she tends to do a little more walking. She suggests that is the major time she used the pain medicine. She is not on any pain medicine now. She has been seen in the Pain Clinic for review and I suspect part of that is because she has violated contracts in the past. That aside, reviewed her notes and I was available and assisting when she came into the hospital 02/19/09 and had a terrible lateral plateau fracture on the right and major pilon fracture on the left. She was treated with a closed percutaneous screw and external fixator on the left and 2 screws to buoy up the lateral plateau on the right knee and she also had a burst fracture of T12. She has occasional back pain now. She has not been doing a lot of exercise or core strengthening to help support it. She has not used a stationary bicycle to strengthen her knee but complains only minimally of pain in the knee. She has a little stiffness in the knee. She complains of a burning, tingling pain in the left foot but that is usually when she is sitting on the edge of a chair with pressure behind her knee on her tibial nerve or perhaps her peroneal nerve but she gets a burning stinging that goes away when she moves her foot around and stomps it a little bit. She denies severe ankle pain. She gets a little stiffness in the front of her ankle. On physical exam, her right knee bends to 120 degrees, comes to full extension and is clinically stable with no instability. There is no effusion. She has a good pulse in her foot. On the left, she also has a good pulse. She has a slight degree of varus to the position of her foot but has an excellent fusion that is well-healed. She walks a little stiffly with difficulty progressing over the front of her foot and tends to waddle onto the left side. Her spine: There is no focal tenderness. There is no major deformity but a review of old x-rays demonstrates compression of about 80% in the front and about 20% in the back so there is a wedge-shaped vertebra there. The rest of her vertebrae look okay. Review of her knee films demonstrates slight irregularity in the lateral compartment but no joint space narrowing, consistent with her good function, and her ankle fusion on the left is solid with good bridging of bone and maintenance of her subtalar joint. IMPRESSION: I do not think there is anything we can do to improve her situation in regard to her right knee, left ankle or spine except for encouraging maintenance of strength, particularly core strengthening, for her spine and sort of a low impact strengthening for her knee such as a stationary bicycle and reviewed that with her. I suspect that intermittently, she has trouble and the type of activity that she describes such as prolonged standing and walking would likely exaggerate pain and may cause her to benefit from intermittent pain medication. I am not sure about her character and whether she would tend to increase the dosing but having some relief on occasion may be helpful to her. I think her primary care provider, Stephany Molina, is trying to work that out with different medications for her. She is not a candidate for joint replacement in her knee. There is nothing more that can be done with her ankle. I tried to help her understand the getting numb and tingly in the foot and how that is likely to persist, but she is seeming to treat it appropriately. We will see her back on a p.r.n. basis. More than 20 of this 35-minute visit was in [id number] discussion about options of treatment, nature of disease process, efforts that can be pursued for strengthening and maintenance of activity, the use of a walking stick in her right hand to level her gait out and decrease the stress when she is going a long distance, particularly at the fairs, and decrease her need for pain medication. She seemed satisfied with that discussion. She is a little hard to read. She seemed to be wincing and squinting at me but said she had problems with dry eye that made her do it and I was not hurting her or giving her difficult messages to deal with. cc: Stephany Molina documented in this encounter Plan of Treatment Not on filedocumented as of this encounter Visit Diagnoses Diagnosis Hx of multiple trauma Personal history of other injury documented in this encounter Care Teams Fiberglass Luggage Molder Relationship Specialty Start Date End Date Stephany Molina APRN PCP - General Family Medicine 05/17/16 05/21/19 documented as of this encounter
--- OUTSIDE RECORDS SUMMARY | 2022-05-05 00:44 | XMS_ITS | Clinical Summary ---
:1960 Author Organization [facility] [place] [address] Care Team Providers Name Role Phone Destinee Bhatt APRN Primary Care Provider Allergies Active Allergy Reactions Severity Noted Date Comments House Dust Headaches, Asth ma Oxycodone-Acetaminophen Itching Medium Sulfa (Sulfonamide Antibiotics) Hives Medium Trazodone Low 06/13/2011 Dizziness, ligh theaded Sertraline 07/20/2016 Medications Medication Sig Dispensed Refills Start Date End Date Status Levalbuterol Tartrate 0 08/03/2010 Active (XOPENEX HFA) 45 mcg/Actuation inhaler ALBUTEROL INHL Inhale 2 puffs 0 Active into the lungs. As directed/as needed fluticasone-salmeterol Inhale 1 puff 0 Active (ADVAIR DISKUS) 250-50 into the lungs mcg/dose diskus inhaler 2 times daily. MULTI-VITAMIN ORAL Take 1 tablet 0 Active by mouth daily. Mometasone (NASONEX) 50 by Nasal route 0 Active mcg/Actuation [place] as needed. acetaminophen (TYLENOL) Take 1,000 mg 0 Active 500 mg tablet by mouth every 6 hours as needed. prochlorperazine every 8 hours 0 04/04/2016 Active (COMPAZINE) 10 mg Tablet as needed. atenolol (TENORMIN) 100 Take 100 mg by 0 09/22/2016 Active mg Tablet mouth daily. cetirizine (ZYRTEC) 10 mg Take 10 mg by 0 Active Tablet mouth daily. atorvastatin (LIPITOR) 20 Take 20 mg by 0 Active mg Tablet mouth daily. Xyebiat-Rempgwjij-Eidc Take by mouth 0 Active 333-133-5 mg Tablet daily. alendronate (Fosamax) 70 Take 70 mg by 0 Active mg Tablet mouth every 7 days. Take in AM with full glass of water, on an empty stomach. Do not lie down for 30 min. fluticasone propionate SPRAY 1 2 0 01/10/2020 Active (FLONASE) 50 SPRAYS INTO mcg/actuation Molina, EACH NOSTRIL Suspension ONCE A DAY lisinopriL TAKE ONE-HALF 0 Activ e (Prinivil;Zestril) 20 mg TABLET BY MOUTH Tablet EVERY DAY pantoprazole EC TAKE 1 TABLET 0 05/29/2020 Active (Protonix) 40 mg Tablet, BY MOUTH DAILY Delayed Release (E.C.) Advair Diskus 100-50 INHALE ONE PUFF 0 01/10/2020 Active mcg/dose Disk with Device BY MOUTH TWICE A DAY hydrOXYzine (Atarax) 25 TAKE ONE TABLET 0 12/11/2020 Active mg Tablet BY MOUTH EVERY 6 HOURS NEEDED montelukast (Singulair) as needed. 0 01/07/2021 Active 10 mg Tablet Active Problems Problem Noted Date Hx of multiple trauma 09/27/2016 Overview: 02/19/01 post fall through [facility] floor T 12 burst fx R Lateral tibial plateau L ankle pilon exfix with subsequent ankl e fusion 2002 Nephrolithiasis 06/13/2011 Reflux 06/12/2011 Liver disease Overview: fatty liver Hypertension Anxiety Depression Hypercholesterolemia GERD (gastroesophageal reflux disease) Asthma Hyperlipidemia Immunizations Name Administration Dates Next Due Influenza Vaccine, Whole 08/22/2009 Pneumococcal Polyvalent 23 10/22/2006 Family History Medical History Relation Comments Coronary Artery Disease Mother Diabetes Mother Relation Status Comments Mother Social History Tobacco Use Types Packs/Day Years [...] Assigned at Date Recorded Not on file Last Filed Vital Signs Vital Sign Reading Time Taken Comments Blood Pressure 118/71 03/17/2021 2:26 PM EDT Pulse 81 03/17/2021 2:26 PM EDT Temperature - - Respiratory Rate - - Oxygen Saturation 99% 09/17/2020 9:26 AM EST Inhaled Oxygen Concentration - - Weight 88 kg (194 lb) 03/17/2021 2:26 PM EDT Height 154.9 cm (5' 1) 03/17/2021 2:26 PM EDT Body Mass Index 36.66 03/17/2021 2:26 PM EDT Plan of Treatment Health Maintenance Due Date Last Done Comments Covid-19 Vaccine (#1) 1965 HIV screen 1978 Hepatitis C Screening 1978 Tdap adult 1979 Tetanus vaccine 1979 HPV test 1990 PAP Smear 1990 Breast Cancer Share Decision 2000 Needed Colonoscopy 2005 Pneumococcal Vaccine: At-Risk 10/22/2007 10/22/2006 5-64yrs (2 - PCV) Breast Cancer screening 2010 Zoster vaccine (1 of 2) 2010 Advance Directive 2015 Influenza (Flu) vaccine (1 of 1 - 06/22/2022 08/22/2009 Influenza standard series) Diabetes Screening (HgbA1C or 03/17/2024 03/17/2021, 2019, Glucose) 08/21/2019, Additional history exists Insurance Payer Benefit Plan / Subscriber ID Effective Dates Phone Addre ss Type Group MEDICARE MEDICARE PART [id number] 2007-Presen [phone] [facility] [place] [address] [place] [id number] 2019-Prese [phone] [address] [place] [address] Care Teams Gear Room Keeper Relationship Specialty Start Date End Date Destinee Bhatt APRN PCP - General Family Medicine 08/23/20 [address] [place], [place] [id number]
--- OUTSIDE RECORDS SUMMARY | 2022-05-05 00:44 | XMS_ITS | Encounter Summary ---
:1960 Author Organization [facility] [place] [address] Care Team Providers Name Role Phone Destinee Bhatt APRN Primary Care Provider Encounter Details Date Type Department Care Team Description 03/17/2021 Laboratory Appointment Lab 3L Ene Kelly CKD (chronic kidney [facility] disease) stage 3, GFR [facility] 30-59 ml/ [place] [address] Social History Tobacco Use Types Packs/Day Years [...] Associated Diagnosis Comme nts HC VENIPUNCTURE Routine 03/17/2021 2:13 PM CKD (chronic kidney Results for this EDT disease) stage 3, GFR proced ure are in 30-59 ml/min the results section. documented in this encounter Results (ABNORMAL) Basic Metabolic Panel (non-fasting) (03/17/2021 2:13 PM EDT) athologist Signature Glucose Lvl 105 65 - 199 [facility] mg/dL [facility] Comment: Diabetes: >=200 mg/dL plus symp toms BUN 23 (H) 8 - 18 mg/dL [facility] Creatinine 1.23 (H) 0.70 - 1.20 mg/dL [facility] Sodium 143 135 - 145 mmol/L [facility] Potassium 4.2 3.5 - 5.0 mmol/L [facility] Comment: Please note: ??Patients with WBC >100,00 0 may have falsely elevated Potassium levels. ??For accurate Potassium quantif ication in these patients send serum separator tube (gold top) for subsequent determinations. ??Contact the Clinical Chemistry Laboratory if there are any qu estions. Chloride 106 98 - 107 mmol/L [facility] CO2 26 22 - 31 mmol/L [facility] Anion Gap 11 5 - 15 mmol/L [facility] Calcium 9.0 8.5 - 10.5 mg/dL [facility] Estimated GFR 48 (L) >=60 mL/min/1.73 m?? [facility] Comment: This patient? s estimated glomerular filtration rate (eGFR) is between 48 mL/min/1.73 m2 (patients with less muscl e mass) and 55 mL/min/1.73 m2 (patients with more muscle mass) as determined by the CKD-EPI equation. Assessment of eGFR is not appropriate when creatinine concentrations are rapidly changing. For clinical decisions where creatinine clearance will affect therapy, a 24-hour urine creatinine clearance may b e advised. Assignment of CKD stage 1 - 5 for patien ts with an eGFR near the transition point between stages may be based on cli nical assessment of muscle mass and symptoms in addition to eGFR. Specimen Anatomical Collection Method Collection Time Receive d Time (Source) Location / / Volume Laterality Blood 03/17/2021 2:13 PM 2:26 EDT PM EDT Resulting Agency Comment Spec In Lab Benitez Adames MD CHEMISTRY ORDERABLES Performing Organization Address City/State/[place] [address] documented in this encounter Visit Diagnoses Diagnosis CKD (chronic kidney disease) stage 3, GF R 30-59 ml/min Chronic kidney disease, Stage III (moder ate) documented in this encounter Care Teams Bellman Driver Relationship Specialty Start Date End Date Destinee Bhatt APRN PCP - General Family Medicine 08/23/20 [address] [place] [address] documented as of this encounter
--- OUTSIDE RECORDS SUMMARY | 2022-05-05 00:44 | XMS_ITS | Encounter Summary ---
:1960 Author Organization [facility] [place] [address] Care Team Providers Name Role Phone Mikala Cortez APRN Primary Care Provider [phone] Encounter Details Date Type Department Care Team Description 12/14/2010 Procedure visit Gastroenterology at [facility], [facility] [place] [address] Social History Tobacco Use Types Packs/Day Years Used Date Never Assessed Sex Assigned at Date Recorded Not on file documented as of this encounter Plan of Treatment Not on filedocumented as of this encounter Visit Diagnoses Not on filedocumented in this encounter Care Teams Parking Meter Collector Relationship Specialty Start Date End Date Mikala Cortez APRN PCP - General 09/13/10 05/16/16 documented as of this encounter
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
--- OUTSIDE RECORDS SUMMARY | 2022-05-05 00:44 | XMS_ITS | Encounter Summary ---
:1960 Author Organization [facility] [place] [address] Care Team Providers Name Role Phone MillerDestinee SHARONA Primary Care Provider Encounter Details Date Type Department Care Team Description 03/17/2021 Office Visit Nephrology Hypertension Benitez Adames 3 chronic at [facility] [place] Stephy kidney disease, [facility] whether [facility] [address] stage 3a [place] 3[place] [address] [place] [address] [phone] Social History Tobacco Use Types Packs/Day Years [...] - Inhaled Oxygen Concentration - - Weight 88 kg (194 lb) 03/17/2021 2:26 PM EDT Height 154.9 cm (5' 1) 03/17/2021 2:26 PM EDT Body Mass Index 36.66 03/17/2021 2:26 PM EDT documented in this encounter Progress Notes Benitez Adames MD - 03/17/2021 3:00 PM EDT PATIENT: Lena Alexandre : 1960 Interval history: Patient reports overall doing well. She completed her COVID-19 vaccine series without trouble. She denies recent changes in her health. Still unable to participate in water therapy. Pain managed with acetaminophen. Denies recent concern for nephrolithiasis Assessment/Plan: #Chronic Kidney disease Stage?? III/a1: CR??1.23mg/dl??->??eGFR 48ml/min stable within patient's range. ??Historically no significant proteinuria per spot.?Known history of nehrolithiasis. History of??significant NSAID use.?Externalrenal ultrasound from October 2019 reported as normal Plan:??Continue to encourage good p.o. intake.?We will continue to monitor Lisinopril 20 mgPatient to call if she has episode of nephrolithiasis ?? #Hemodynamics?? Blood Pressure:??118/71 mmHg at goal.?? Antihypertensives atenolol 100 mg.?Lisinopril 20 mg.?? Volume Status:Patient appears euvolemic Prevalent CVD:??No prevalent cardiovascular disease known. ??Patient is on beta- zhanna and atorvastatin ?? #Hemoglobin No significant anemia in the past year Goal Hgb 10-12g/dl, Ferritin>100ng/ml, TSAT>20% ?? #Acid/Base status Bicarb 24 mmol/L not consistent with acidosis Would Add NaHCO3 if serum bicarb persistently < 22mmol/l ?? #Bone Mineral Health PTH elevated likely secondary to renal function. Vit D acceptable.? Stage 3 PTH: 35-70 pg/ml ?Phos 2.7-4.6 ??Ca 8.5-10.5mg/dl ?? Renal Clinic Follow-Up Plan: 1 year Past Medical History: Diagnosis Date ??? Anxiety [...] ??? LITHOTRIPSY ??? TIBIA FRACTURE SURGERY Right 2001 plateau fracture ??? URETER STENT PLACEMENT 2009 and removal for stones Family History Problem Relation Age of Onset ??? Coronary Artery Disease Mother ??? Diabetes Mother Social History Social History Narrative Not on file Outpatient medications: Current Outpatient Medications on File Prior to Visit Medication Sig Dispense Refill ??? hydrOXYzine (Atarax) 25 mg Tablet TAKE ONE TABLET BY MOUTH EVERY 6 HOURS NEEDED ??? montelukast (Singulair) 10 mg Tablet as needed. ??? fluticasone propionate (FLONASE) 50 mcg/actuation [place], Suspension SPRAY 1 2 SPRAYS INTO EACH NOSTRIL ONCE A DAY ??? lisinopriL (Prinivil;Zestril) 20 mg Tablet TAKE ONE-HALF TABLET BY MOUTH EVERY DAY ??? pantoprazole EC (Protonix) 40 mg Tablet, Delayed Release (E.C.) TAKE 1 TABLET BY MOUTH DAILY ??? Advair Diskus 100-50 mcg/dose Disk with Device INHALE ONE PUFF BY MOUTH TWICE A DAY ??? alendronate (Fosamax) 70 mg Tablet Take 70 mg by mouth every 7 days. Take in AM with full glass of water, on an empty stomach. Do not lie down for 30 min. ??? cetirizine (ZYRTEC) 10 mg Tablet Take 10 mg by mouth daily. ??? atorvastatin (LIPITOR) 20 mg Tablet Take 20 mg by mouth daily. ??? Jlyzifk-Jierleats-Erxy 333-133-5 mg Tablet Take by mouth daily. ??? atenolol (TENORMIN) 100 mg Tablet Take 100 mg by mouth daily. ??? [DISCONTINUED] NEXIUM 40 mg Capsule, Delayed Release(E.C.) Take 40 mg by mouth daily. ??? Mometasone (NASONEX) 50 mcg/Actuation [place] by Nasal route as needed. ??? acetaminophen [...] Levalbuterol Tartrate (XOPENEX HFA) 45 mcg/Actuation inhaler (Patient taking differently: Inhaleinto the lungs every 6 hours as needed.) ??? [DISCONTINUED] celecoxib (CeleBREX) 200 mg Capsule TAKE 1 CAPSULE BY MOUTH EVERY DAY ??? [DISCONTINUED] cholecalciferol, Vitamin D3, (Vitamin D3) 1,000 unit Tablet TAKE ONE TABLET BY MOUTH EVERY DAY ??? [DISCONTINUED] clonazePAM (KlonoPIN) 1 mg Tablet TAKE ONE-HALF TABLET BY MOUTH AT BEDTIME ??? [DISCONTINUED] penicillin v potassium (VEETID) 500 mg Tablet TK 1 T PO BID ??? [DISCONTINUED] potassium chloride ER (K-Dur/Klor-Con) 20 mEq Tab Sust.Rel. Particle/Crystal Take20 mEq by mouth 2 times daily. ??? prochlorperazine (COMPAZINE) 10 mg Tablet every 8 hours as needed. No current facility-administered medications on file prior [...] No weakness. No numbness/ tingling in extremities. MSK- No joint pain/swelling PHYSICAL EXAM: Last value Temperature Heart Rate Heart Rate: 81 Blood Pressure BP: 118/71 Respiratory Rate SpO2 Appearance - Alert, Comfortable. Patient ambulating with walker Skin - No exanthem. HEENT - Sclera white. Mucous membranes moist. Chest:. Lungs clear to ausculatation w/o wheezes/ rhonchi/ crackles. Heart - S1 and S2 clear w/o murmur, gallop, or rub. JVP not elevated. Abd - Soft. + BS. No bruit. Non tender. Ext - . Warm. No cyanosis. No dependent edema. Neuro - No asterixis. Benitez Adames MD, MPH Section of Nephrology #[id number] documented in this encounter Plan of Treatment Scheduled Orders Name Type Priority Associated Diagnoses Order S chedule CBC (with Diff) Lab Routine Stage 3 chronic kidney Ex pected: 03/17/2022, disease, unspecified Expires : 09/17/2022 whether stage 3a or 3b CKD Basic Metabolic Panel Lab Routine Stage 3 chronic kid shan Expected: 03/17/2022, (non-fasting) disease, unspecified s: 09/17/2022 whether stage 3a or 3b CKD PTH Lab Routine Stage 3 chronic kidney Expec sangeetha: 03/17/2022, disease, unspecified Expires : 09/17/2022 whether stage 3a or 3b CKD Phosphorus Lab Routine Stage 3 chronic kidney Expec sangeetha: 03/17/2022, disease, unspecified Expires : 09/17/2022 whether stage 3a or 3b CKD Vitamin D, 25-Hydroxy Lab Routine Stage 3 chronic kid shan Expected: 03/17/2022, disease, unspecified Expires : 09/17/2022 whether stage 3a or 3b CKD documented as of this encounter Visit Diagnoses Diagnosis Stage 3 chronic kidney disease, unspecif ied whether stage 3a or 3b CKD documented in this encounter Care Teams Supercharger Mechanic Relationship Specialty Start Date End Date Destinee Bhatt APRN PCP - General Family Medicine 08/23/20 [address] [place] [address] documented as of this encounter
--- OUTSIDE RECORDS SUMMARY | 2022-05-05 00:44 | XMS_ITS | Encounter Summary ---
:1960 Author Organization [facility] [place] [address] Care Team Providers Name Role Phone Marko Duffy SHARONA Primary Care Provider Encounter Details Date Type Department Care Team Description 04/07/2020 Office Visit Nephrology Benitez Adames CKD (chronic kidney disease) stage 3, GFR 30-59 ml/min; Hypertension at [facility] MD Stephy Hypertensive kidney disease with CKD sta ge [address] [place] [address] [place] [address] [phone] Social History Tobacco Use Types Packs/Day Years [...] Sign Reading Time Taken Comments Blood Pressure 148/80 04/07/2020 2:09 PM EDT Pulse 81 04/07/2020 2:09 PM EDT Temperature - - Respiratory Rate - - Oxygen Saturation 98% 04/07/2020 2:09 PM EDT Inhaled Oxygen Concentration - - Weight 91.1 kg (200 lb 12.8 oz) 04/07/2020 2:09 PM EDT Height 154.9 cm (5' 0.98) 04/07/2020 2:09 PM EDT Body Mass Index 37.96 04/07/2020 2:09 PM EDT documented in this encounter Progress Notes Benitez Adames MD - 04/07/2020 3:00 PM EDT He has PATIENT: Lena Alexandre : 1960 Interval history: Patient concerned with weight gain. Relays frustration over inability to participate and water exercise class due to pandemic. She denies other changes in her health reports compliance with her medications. Assessment/Plan: #Chronic Kidney disease Stage?? III/a1: CR??1.13mg/dl -> eGFR 53ml/min per external labs on 11/19. Relatively stable past 6 mos. No significant proteinuria per spot. Known history of nehrolithiasis. History of significant NSAID use. External renal ultrasound from October 2019 reported as normal Plan: Continue to encourage good p.o. intake. We will continue to monitor No apparent renal indication for RAAS inhibition. Patient to call if she has episode of nephrolithiasis #Hemodynamics?? Blood Pressure:??148/80mmHg.?Encourage patient to begin home blood pressure monitoring so we may better understand her trend. Depending on these readings may have to consider additional antihypertensives Antihypertensives atenolol 100 mg. Currently holding hydrochlorothiazide due to hypokalemia. Volume Status:Patient appears euvolemic Prevalent CVD:??No prevalent cardiovascular disease known. ??Patient is on beta- zhanna and atorvastatin ?? #Hemoglobin Most recent Hemoglobin 11.4 g/dL not consistent with significant anemia Goal Hgb 10-12g/dl, Ferritin>100ng/ml, TSAT>20% ?? #Acid/Base status Bicarb 24 mmol/L not consistent with acidosis Would Add NaHCO3 if serum bicarb persistently < 22mmol/l ?? #Bone Mineral Health PTH elevated likely secondary to renal function. Vit D acceptable. Patient has recent diagnosis of osteoporosis. She inquires about bisphosphonate use. Given her current kidney function [employer] does not recommend dose adjustment for Aldendronatet Stage 3 PTH: 35-70 pg/ml ?Phos 2.7-4.6 ??Ca 8.5-10.5mg/dl Renal Clinic Follow-Up Plan: 6-12 months Past Medical History: Diagnosis Date ??? [...] to Visit Medication Sig Dispense Refill ??? alendronate (Fosamax) 70 mg Tablet Take 70 mg by mouth every 7 days. Take in AM with full glass of water, on an empty stomach. Do not lie down for 30 min. ??? potassium chloride ER (K-Dur/Klor-Con) 20 mEq Tab Sust.Rel. Particle/Crystal Take 20 mEq by mouth 2 times daily. ??? cetirizine (ZYRTEC) 10 mg Tablet Take 10 mg by mouth daily. ??? atorvastatin (LIPITOR) 20 mg Tablet Take 20 mg by mouth daily. ??? Byvjxys-Tcyfuflka-Gglc 333-133-5 mg Tablet Take by mouth daily. ??? atenolol (TENORMIN) 100 mg Tablet Take 100 mg by mouth daily. ??? NEXIUM 40 mg Capsule, Delayed Release(E.C.) Take 40 mg by mouth daily. ??? prochlorperazine (COMPAZINE) 10 mg Tablet every 8 hours as needed. ??? Mometasone (NASONEX) 50 mcg/Actuation [place] by Nasal route as needed. ??? acetaminophen [...] every 6 hours as needed.) ??? [DISCONTINUED] colesevelam (WELCHOL) 625 mg Tablet Take 1,875 mg by mouth daily. No current facility-administered medications on file prior [...] Rate Heart Rate: 81 Blood Pressure BP: 148/80 Respiratory Rate SpO2 SpO2: 98 % Appearance - Alert, Comfortable. Skin - No exanthem. HEENT - Sclera white. Mucous membranes moist. Chest:. Lungs clear to ausculatation w/o wheezes/ rhonchi/ crackles. Heart - S1 and S2 clear w/o murmur, gallop, or rub. JVP not elevated. Abd - Soft. + BS. No bruit. Non tender. Ext - . Warm. No cyanosis. No dependent edema. Neuro - No asterixis. STUDIES: Labs: CBC: Recent Labs 08/21/19 1628 WBC 9.0 HGB 11.4* PLATELET 264 Chemistry: Recent Labs 08/21/19 1628 NA 141 K 3.4* CL 99 CO2 26 BUN 24* CREATININE 1.28* GLUCOSE 111 Recent Labs 08/21/19 1628 CALCIUM 9.2 Benitez Adames MD, MPH Section of Nephrology #[id number] documented in this encounter Plan of Treatment Not on filedocumented as of this encounter Results (ABNORMAL) Basic Metabolic Panel (non-fasting) (03/17/2021 2:13 PM EDT) athologist Signature Glucose Lvl 105 65 - 199 [facility] mg/dL [facility] Comment: Diabetes: >=200 mg/dL plus symp toms BUN 23 (H) 8 - 18 mg/dL [facility] Creatinine 1.23 (H) 0.70 - 1.20 mg/dL [facility] Sodium 143 135 - 145 mmol/L [facility] Potassium 4.2 3.5 - 5.0 mmol/L [facility] Comment: Please note: ??Patients with WBC >100,00 0 may have falsely elevated Potassium levels. ??For accurate Potassium quantif ication in these patients send serum separator tube (gold top) for subsequent determinations. ??Contact the Clinical Chemistry Laboratory if there are any qu estions. Chloride 106 98 - 107 mmol/L [facility] CO2 26 22 - 31 mmol/L [facility] Anion Gap 11 5 - 15 mmol/L [facility] Calcium 9.0 8.5 - 10.5 mg/dL [facility] Estimated GFR 48 (L) >=60 mL/min/1.73 m?? [facility] Comment: This patient? s estimated glomerular [...] Address City/State/[place] [address] documented in this encounter Visit Diagnoses Diagnosis CKD (chronic kidney disease) stage 3, GF R 30-59 ml/min Chronic kidney disease, Stage III (moder ate) Hypertensive kidney disease with CKD sta ge III Unspecified hypertensive kidney disease with chronic kidney disease stage I through stage IV, or unspecified documented in this encounter Care Teams Camp Dishwasher Relationship Specialty Start Date End Date Marko Duffy APRN PCP - General Family Medicine 07/10/19 08/22/20 [address] [place] [address] documented as of this encounter
--- OUTSIDE RECORDS SUMMARY | 2022-05-05 00:44 | XMS_ITS | Encounter Summary ---
:1960 Author Organization [facility] [place] [address] Care Team Providers Name Role Phone Unavailable Primary Care Provider Unavailable Encounter Details Date Type Department Care Team Description 10/12/2009 Ancillary Procedure Radiology Library at Destinee Bhatt APRN [facility] [address] [place] [address] [facility] [phone] [place] [address] (Work) [phone] Social History Tobacco Use Types Packs/Day Years Used Date Never Assessed Sex Assigned at Date Recorded Not on file documented as of this encounter Plan of Treatment Not on filedocumented as of this encounter Procedures Procedure Name Priority Date/Time Associated Diagnosis Comme nts FILM Routine 10/12/2009 12:05 AM Results for this LIBRARY-STORAGE EST procedure ar e in ONLY US BREAST the results section. documented in this encounter Results Film Library Storage Only US Breast (10/12/2009 12:05 AM EST) Specimen (Source) Anatomical Location Collection Method / Collectio n Time Received Time / Laterality Volume Narrative TROY - 02/27/2022 3:18 PM EDT This exam is auto-finalizing. It's purpo se is for storage only. Destinee Bhatt APRN IMG FILM LIBRARY ORDERABLES Performing Organization Address City/State/ZIP Code Phon e Number [place], [place] documented in this encounter Visit Diagnoses Not on filedocumented in this encounter
--- OUTSIDE RECORDS SUMMARY | 2022-05-05 00:45 | XMS_ITS | Encounter Summary ---
:1960 Author Organization [facility] [place] [address] Care Team Providers Name Role Phone Unavailable Primary Care Provider Unavailable Encounter Details Date Type Department Care Team Description 09/07/2008 Ancillary Procedure Radiology Library at Destinee Bhatt APRN [facility] [address] [place] [address] [facility] [phone] [place] [address] (Work) [phone] Social History Tobacco Use Types Packs/Day Years Used Date Never Assessed Sex Assigned at Date Recorded Not on file documented as of this encounter Plan of Treatment Not on filedocumented as of this encounter Procedures Procedure Name Priority Date/Time Associated Diagnosis Comme nts FILM LIBRARY Routine 09/07/2008 12:00 AM Results for this STORAGE ONLY MAMMO EST procedure are in the results section. documented in this encounter Results Film Library- Storage Only Mammo (09/07/2008 12:00 AM EST) Specimen (Source) Anatomical Location Collection Method / Collectio n Time Received Time / Laterality Volume Narrative TROY - 02/27/2022 3:18 PM EDT This exam is auto-finalizing. It's purpo se is for storage only. Destinee Bhatt APRN IMG FILM LIBRARY ORDERABLES Performing Organization Address City/State/ZIP Code Phon e Number [place], [place] documented in this encounter Visit Diagnoses Not on filedocumented in this encounter
--- OUTSIDE RECORDS SUMMARY | 2022-05-05 00:45 | XMS_ITS | Encounter Summary ---
:1960 Author Organization [facility] [place] [address] Care Team Providers Name Role Phone Unavailable Primary Care Provider Unavailable Encounter Details Date Type Department Care Team Description 04/16/2007 Ancillary Procedure Radiology Library at Destinee Bhatt APRN [facility] [place] [address] [place] [address] [facility] [phone] [place] [address] (Work) [phone] Social History Tobacco Use Types Packs/Day Years Used Date Never Assessed Sex Assigned at Date Recorded Not on file documented as of this encounter Plan of Treatment Not on filedocumented as of this encounter Procedures Procedure Name Priority Date/Time Associated Diagnosis Comme nts FILM LIBRARY Routine 04/16/2007 12:00 AM Results for this STORAGE ONLY MAMMO EDT procedure are in the results section. documented in this encounter Results Film Library- Storage Only Mammo (04/16/2007 12:00 AM EDT) Specimen (Source) Anatomical Location Collection Method / Collectio n Time Received Time / Laterality Volume Narrative TROY - 02/27/2022 3:19 PM EDT This exam is auto-finalizing. It's purpo se is for storage only. Destinee Bhatt APRN IMG FILM LIBRARY ORDERABLES Performing Organization Address City/State/ZIP Code Phon e Number [place], [place] documented in this encounter Visit Diagnoses Not on filedocumented in this encounter
--- OUTSIDE RECORDS SUMMARY | 2022-05-05 00:46 | XMS_ITS | Encounter Summary ---
:1960 Author Organization [facility] Address [address] [place] [address] Care Team Providers Name Role Phone Dale Gomez MD Primary Care Provider Encounter Details Date Type Department Care Team Description 06/01/2021 Lab Requisition [facility] Destinee Bhatt Encoun ter for general adult medical examination without abnormal findings; Pathology & DOCUMENT COORDINATOR Encounter for screening for malignant ne oplasm of cervix; Laboratory Medicine [address] for gynecological examination (general) (routine) without abnormal findings - [address] [phone] Social History Tobacco Use Types Packs/Day Years Used Date Never Assessed Sex Assigned at Date Recorded Not on file documented as of this encounter Plan of Treatment Not on filedocumented as of this encounter Procedures Procedure Name Priority Date/Time Associated Diagnosis Comme nts PAP TEST Today 05/31/2021 12:30 Encounter for general Re sults for this EDT adult medical procedure are in examination without the resu lts abnormal finding s section. Encounter for screening for malignant neoplasm of cervix Encounter for gynecological examination (general) (routine) without abnormal findings HUMAN PAPILLOMAVIRUS Today 05/31/2021 12:30 Encounter for ge neral Results for this (HPV) DETECTION-HIGH EDT adult medical proced ure are in RISK TYPES examination without the resu lts abnormal finding s section. Encounter for screening for malignant neoplasm of cervix Encounter for gynecological examination (general) (routine) without abnormal findings documented in this encounter Results HUMAN PAPILLOMAVIRUS (HPV) DETECTION-HIGH RISK TYPES (05/31/2021 12:30 EDT) Human Papillomavirus NegativeComment: No Negative [facility] (HPV) Detection-High E6 or E7 mRNA is CENTER LABORATOR Y Types detected from HPV SERVICES types 16,18,31,33,35,39,45 ,51,52,56,58,59,66, and 68 by extractor plant operator mediated amplification. Specimen Pap Test - Cervix and/or Endocervix Performing Organization Address City/[facility] Phon e Number [facility] [address] [place] [address] SERVICES PAP TEST (05/31/2021 12:30 EDT) Specimens A. Cervix and/or [facility] MED[facility] Endocervix , ThinPrep CENTER Imaging System with LABORATORY Manual Evaluation SERVICES Specimen Adequacy Satisfactory for [facility] MED[facility] Evaluation - CENTER transformation zone LABORATORY component present SERVICES General Negative for [facility] Categorization intraepithelial CENTER lesion or malignancy LABORATORY SERVICES Attestation . [facility] Electronically CENTER signed by BHAKTI Hunter CT(ASC P) SERVICES on 06/13/2021 at 1202 Clinical History See below [facility] SERVICES HPV The result for the Human Pap illomavirus (HPV) Detection-High Risk Types is Negative. No E6 or E7 mRNA is detected from HPV types 16,18,31,33,35,39,45,51,52,56,58,59,66, and 68 by extractor plant operator mediated [facility] amplification.Testing was pe rformed on specimen [id number] and was resulted on 06/13/2021 1158 EDT by EDWIGE, LAB INSTRUMENT RESULTS IN [facility] SERVICES Performing Lab [facility] LAB [facility] SERVICES Scanned Images [facility] SERVICES Specimen Pap Test - Cervix and/or Endocervix Performing Organization Address City/[facility] Phon e Number [facility] [address] [place] [address] SERVICES documented in this encounter Visit Diagnoses Diagnosis Encounter for general adult medical exam ination without abnormal findings Unspecified general medical examination Encounter for screening for malignant ne oplasm of cervix Screening for malignant neoplasm of the cervix Encounter for gynecological examination (general) (routine) without abnormal findings documented in this encounter Care Teams Supervisor Newspaper Deliveries Relationship Specialty Start Date End Date Dale Gomez MD PCP - General 12/06/[address] [place] [phone] documented as of this encounter
--- OUTSIDE RECORDS SUMMARY | 2022-05-05 00:46 | XMS_ITS | Encounter Summary ---
:1960 Author Organization [facility] Address [address] [place] [address] Care Team Providers Name Role Phone Dale Gomez MD Primary Care Provider Encounter Details Date Type Department Care Team Description 12/03/2001 Results Only [facility] - Brittanie Kirkpatrick NP conversion 185 [facility] 1 [address] [place] [phone] (Wo rk) Social History Tobacco Use Types Packs/Day Years Used Date Never Assessed Sex Assigned at Date Recorded Not on file documented as of this encounter Plan of Treatment Not on filedocumented as of this encounter Procedures Procedure Name Priority Date/Time Associated Diagnosis Comme nts CYTOPATHOLOGY Routine 12/03/2001 0:00 EST Results for this procedure are i n the results section . documented in this encounter Results CYTOPATHOLOGY (12/03/2001 0:00 EST) Pathology Report: CYTOPATHOLOGY REPORT [facility] Reports generated via electronic interface contain katelyn ginal data; however they are lacking the format of the original re port. Caution should be taken when reading/interpreting unfo rmatted reports. Name: ? LAURA HARRIS ? Accession #: ? [id number] : ? 1960 (Age: 41) ??F ?Collect Date: ? 11/22 Location: ? [facility] ? Receive Date : ? 12/06/2001 Provider: ?BRITTANIE JUDD RETAIL PERFORMANCE SPECIALIST Copy to: ? Specimen/Source: ?ThinPrep Pap Test, Cervix/ Endocervix Last Menstrual Period: ? 11/18/01 Hormonal/Contraceptive Status: ? Depo-Provera ? SPECIMEN ADEQUACY ? Satisfactory for Evaluation - transformation zone component present GENERAL CATEGORIZATION ? Negative for Intraepithelial Lesion or Malignan cy ? Document reviewed and electronically signed by: ? RAUL Melgar(ASCP) ? Report Date: ??12/09/2001 12:34 End of Report Specimen Performing Organization Address City/State/ZIP Code Phon e Number [facility] [address] [place] [address] SERVICES [facility] [address] [place] [address] documented in this encounter Visit Diagnoses Not on filedocumented in this encounter Care Teams Event Staff Relationship Specialty Start Date End Date Dale Gomez MD PCP - General 12/06/[address] [place] [phone] documented as of this encounter
--- OUTSIDE RECORDS SUMMARY | 2022-05-05 00:46 | XMS_ITS | Encounter Summary ---
:1960 Author Organization [facility] Address [address] [place] [address] Care Team Providers Name Role Phone Unavailable Primary Care Provider Unavailable Encounter Details Date Type Department Care Team Description 06/23/2008 Before PRISM [facility] - James Cortez, Converted Visit Maple conversion HEAD BOOKKEEPER (Maple) 111 [facility] [address] [place] [address] [place], [place] [phone] (Wo rk) Social History Tobacco Use Types Packs/Day Years Used Date Never Assessed Sex Assigned at Date Recorded Not on file documented as of this encounter Plan of Treatment Not on filedocumented as of this encounter Procedures Procedure Name Priority Date/Time Associated Diagnosis Comme nts CYTOPATHOLOGY Routine 06/23/2008 0:00 EDT Results for this procedure are i n the results section . documented in this encounter Results CYTOPATHOLOGY (06/23/2008 0:00 EDT) Pathology Report: CYTOPATHOLOGY REPORT ? [facility] Reports generated via electr onic interface contain original data; ? however they are lacking the format of the original report. ? Caution should be taken when reading/interpreting unformatted reports. ? Name: ? MELISSA HARRIS ? Accession #: ? [id number] ? : ? 1960 (Age: 48) ??F ?Collect Date: ? 06/23/2008 ? Location: ? [facility] ? Receive Date: ? 06/23/2008 ? Provider: ?JAMES WELLS NP ? Copy to: ? Specimen/Source: ? ThinPrep Pap Test, Cervix/Endocervix, processed on [employer]c ThinPrep Imaging System, wit h manual evaluation ? Last Menstrual Period: ? @ 2005 ? Hormonal/Contraceptive Statu s: ? Yes: Estrace, Prometrium ? Previous Gynecologic Patholo gy: ? Yes: Abn pap smear @ 1993 - repeat paps wnl ? Other: ? HPVA - HPV testing requested if ASC-US on the current ThinPrep Pap test. ? SPECIMEN ADEQUACY ? Satisfactory for Eval uation ? - transformation zone compon ent present ? GENERAL CATEGORIZATION ? Negative for Intraepi thelial Lesion or Malignancy ? INTERPRETATION ? Fungal organisms pres ent morphologically consistent with Linda species. ? Document reviewed and electr onically signed by: ? Austin Almaguer, [place] (ASCP) ? Report Date: ??09/05/ 2008 07:55 ? End of Report ? Specimen Performing Organization Address City/State/ZIP Code Phon e Number [facility] [address] [place] [address] SERVICES [facility] [address] [place] [address] documented in this encounter Visit Diagnoses Not on filedocumented in this encounter
--- OUTSIDE RECORDS SUMMARY | 2022-05-05 00:46 | XMS_ITS | Encounter Summary ---
:[address] [facility] Address [address] [place] [address] Care Team Providers Name Role Phone Dale Gomez MD Primary Care Provider Encounter Details Date Type Department Care Team Description 06/12/2016 Results Only [facility]- Stephany Mazariegos, BAND SALVAGER [phone] [address] [place] [address] (Wo rk) Social History Tobacco Use Types Packs/Day Years Used Date Never Assessed Sex Assigned at Date Recorded Not on file documented as of this encounter Plan of Treatment Not on filedocumented as of this encounter Procedures Procedure Name Priority Date/Time Associated Diagnosis Comme nts PAP TEST- RESULT Routine 06/12/2016 0:00 EDT Resu lts for this ONLY procedure are i n the results section. documented in this encounter Results PAP TEST- RESULT ONLY (06/12/2016 0:00 EDT) Pathology Report: CYTOPATHOLOGY REPORT [facility] Reports generated via electronic interface contain katelyn ginal data; SERVICES however they are lacking the format of the original re port. Caution should be taken when reading/interpreting unfo rmatted reports. Name: ? MELISSA HARRIS N ? Accession #: ? [id number] ? : ? 1960 (Age: [age]) ??F ?Collect Date: ? 06/12/2016 ? Location: ? [facility] ? Receive Date: ? 06/13/20 16 ? Provider: STEPHANY ALLEN BAND SALVAGER Copy to: ? Final Report SPECIMEN ADEQUACY ? Satisfactory for Evaluation - transformation zone component absent GENERAL CATEGORIZATION ? Negative for Intraepithelial Lesion or Malignan cy ?? Specimen/Source: ??Pap Test, Cervix/Endocervix, ThinPr ep Imaging System with manual evaluation Document reviewed and electronically signed by: ? Austin Almaguer, CT(ASCP) ? Report ??Date: 06/19/2016 13:13 HPV with Pap Test ? Date Ordered: ? 06/19/2016 ? Status: ?? Signed Out ?Date Complete: ? 06/21/2016 ? By: ??Sy stem Interface ? Date Reported: ? 06/21/2016 ? Interpretation RESULT: Negative for HPV. No E6 or E7 mRNA is detected from HPV types 16,18,31,3 3,35, 39,45,51,52,56,58,59,66, and 68 by product designer media sangeetha amplification. Comments Document reviewed and electronically signed by: ? System Interface ? Report date: 06/21/2016 By the signature above, the attending physician certif ies that he/she has personally conducted a gross and/or microscopic examin ation of the described specimens and rendered or confirmed the above diagnosi s. End of Report Specimen Performing Organization Address City/State/ZIP Code Phon e Number [facility] [address] [place] [address] SERVICES documented in this encounter Visit Diagnoses Not on filedocumented in this encounter Care Teams Boom Operator Relationship Specialty Start Date End Date Dale Gomez MD PCP - General 12/06/[address] [place] [phone] documented as of this encounter
--- OUTSIDE RECORDS SUMMARY | 2022-05-05 00:46 | XMS_ITS | Encounter Summary ---
:1960 Author Organization [facility] Address [address] [place] [address] Care Team Providers Name Role Phone Dale Gomez MD Primary Care Provider Encounter Details Date Type Department Care Team Description 12/30/2004 Results Only [facility] - James Inman, LOAN ASSISTANT conversion [address] [phone] (Wo rk) Social History Tobacco Use Types Packs/Day Years Used Date Never Assessed Sex Assigned at Date Recorded Not on file documented as of this encounter Plan of Treatment Not on filedocumented as of this encounter Procedures Procedure Name Priority Date/Time Associated Diagnosis Comme nts CYTOPATHOLOGY Routine 12/30/2004 0:00 EST Results for this procedure are i n the results section . documented in this encounter Results CYTOPATHOLOGY (12/30/2004 0:00 EST) Pathology Report: CYTOPATHOLOGY REPORT [facility] Reports generated via electronic interface contain katelyn ginal data; however they are lacking the format of the original re port. Caution should be taken when reading/interpreting unfo rmatted reports. Name: ? LAURA HARRIS ? Accession #: ? [id number] : ? 1960 (Age: 44) ??F ?Collect Date: ? 12/20 Location: ? [facility] ? Receive Date : ? 01/03/2005 Provider: ?JAMES MOODY LOAN ASSISTANT Copy to: ? Specimen/Source: ?ThinPrep Pap Test, Cervix/ Endocervix Last Menstrual Period: ? 07/25 Other: ? HPVA - HPV testing requested if ASC-US on the current ThinPrep Pap test. ? SPECIMEN ADEQUACY ? Satisfactory for Evaluation - transformation zone component present GENERAL CATEGORIZATION ? Negative for Intraepithelial Lesion or Malignan cy ? Document reviewed and electronically signed by: ? RAUL [place](ASCP) ? Report Date: ??01/05/2005 12:24 End of Report Specimen Performing Organization Address City/State/ZIP Code Phon e Number [facility] [address] [place] [address] SERVICES [facility] [address] [place] [address] documented in this encounter Visit Diagnoses Not on filedocumented in this encounter Care Teams Roadway Engineer Relationship Specialty Start Date End Date Dale Gomez MD PCP - General 12/06/[address] [place] [phone] documented as of this encounter
--- OUTSIDE RECORDS SUMMARY | 2022-05-05 00:46 | XMS_ITS | Encounter Summary ---
:1960 Author Organization [facility] Address [address] [place] [address] Care Team Providers Name Role Phone Dale Gomez MD Primary Care Provider Encounter Details Date Type Department Care Team Description 03/13/2019 Hospital Encounter [facility]- Lorri Unknown, Provider, [facility] [address] [facility] [phone] [place] [address] (Work) [phone] Social History Tobacco Use Types Packs/Day Years Used Date Never Assessed Sex Assigned at Date Recorded Not on file documented as of this encounter Discharge Disposition Disposition Code Departure Means Destination Home or Self Long-Term documented in this encounter Plan of Treatment Not on filedocumented as of this encounter Visit Diagnoses Not on filedocumented in this encounter Care Teams Fishing Vessel Mate Relationship Specialty Start Date End Date Dael Gomez MD PCP - General 12/06/[address] [place] [phone] documented as of this encounter
--- OUTSIDE RECORDS SUMMARY | 2022-05-05 00:46 | XMS_ITS | Clinical Summary ---
:1960 Author Organization [facility] Address [address] [place] [address] Care Team Providers Name Role Phone Dale Gomez MD Primary Care Provider Social History Tobacco Use Types Packs/Day Years Used Date Never Assessed Sex Assigned at Date Recorded Not on file Plan of Treatment Health Maintenance Due Date Last Done Comments COVID-19 Vaccine (1) 1972 Care Teams Office Service Coordinator Relationship Specialty Start Date End Date Dale Gomez MD PCP - General 12/06/[address] [place] [phone]
--- OUTSIDE RECORDS SUMMARY | 2022-05-05 00:46 | XMS_ITS | Encounter Summary ---
:1960 Author Organization [facility] Address [address] [place] [address] Care Team Providers Name Role Phone Dale Gomez MD Primary Care Provider Encounter Details Date Type Department Care Team Description 11/11/2003 Results Only [facility] - Dale Corcoran MD conversion [address] [place] [phone] Social History Tobacco Use Types Packs/Day Years Used Date Never Assessed Sex Assigned at Date Recorded Not on file documented as of this encounter Plan of Treatment Not on filedocumented as of this encounter Procedures Procedure Name Priority Date/Time Associated Diagnosis Comme nts SURGICAL PATHOLOGY Routine 11/11/2003 0:00 EST Re sults for this procedure are i n the results section. documented in this encounter Results SURGICAL PATHOLOGY (11/11/2003 0:00 EST) Pathology Report: SURGICAL PATHOLOGY REPORT [facility] Reports generated via electronic interface contain katelyn ginal data; LAB however they are lacking the format of the original re port. Caution should be taken when reading/interpreting unfo rmatted reports. Name: ? MELISSA HARRIS N ? Accession #: ? [id number] ? : ? 1960 (Age: 43) ??F ? Collect Date: ? 11/11/2003 ? Location: ? [facility] ? Receive Date: ? 004 ? Provider: RENE CHENG MD Copy to: JAMES MOODY WIRE PULLER ? Final Pathologic Diagnosis: ? Gastroesophageal junction, biopsy: 1. ?Hyperplasti c gastroesophageal junction-type mucosa with mild chronic inflammation. 2. ?Negative for Helicobacter pylori-like microorganisms on H&E staining. Comment: ? The histologic features are luiz tible with mild reflux changes. ??(Dr. Sue)/[facility] Document reviewed and electronically signed by: Giorgi Olsen MD Report ??Date: 11/13/2003 15:53 By the signature above, the attending physician certif ies that he/she has personally conducted a gross and/or microscopic examin ation of the described specimens and rendered or confirmed the above diagnosi s. Specimen(s) Received: ? GE junction bx Clinical History: ? R/O GERD Gross Description: ? Received in Hollande' s fixative labelled Harris and GE junction is a 0.2 x 0.1 x 0.1 cm desouza soft tissue biopsy. ??The specimen is entirely submitted in one cassette. ??(Rebeka Barcenas)/[facility] End of Report Specimen Performing Organization Address City/State/ZIP Code Phon e Number [facility] [address] [place] [address] SERVICES [facility] [address] [place] [address] documented in this encounter Visit Diagnoses Not on filedocumented in this encounter Care Teams Fire Fighting Equipment Specialist Relationship Specialty Start Date End Date Dale Gomez MD PCP - General 12/06/[address] [place] [phone] documented as of this encounter
--- OUTSIDE RECORDS SUMMARY | 2022-05-05 00:46 | XMS_ITS | Encounter Summary ---
:1960 Author Organization [facility] Address [address] [place] [address] Care Team Providers Name Role Phone Dale Gomez MD Primary Care Provider Encounter Details Date Type Department Care Team Description 05/08/2007 Results Only [facility] - Brittanie Kirkpatrick NP conversion [address] [email or web address] 1 [address] [place] [phone] (Wo rk) Social History Tobacco Use Types Packs/Day Years Used Date Never Assessed Sex Assigned at Date Recorded Not on file documented as of this encounter Plan of Treatment Not on filedocumented as of this encounter Procedures Procedure Name Priority Date/Time Associated Diagnosis Comme nts CYTOPATHOLOGY Routine 05/08/2007 0:00 EDT Results for this procedure are i n the results section . documented in this encounter Results CYTOPATHOLOGY (05/08/2007 0:00 EDT) Pathology Report: CYTOPATHOLOGY REPORT [facility] Reports generated via electronic interface contain katelyn ginal data; however they are lacking the format of the original re port. Caution should be taken when reading/interpreting unfo rmatted reports. Name: ? LAURA HARRIS ? Accession #: ? [id number] : ? 1960 (Age: 47) ??F ?Collect Date: ? 04/21 Location: ? [facility] ? Receive Date : ? 05/10/2007 Provider: ?BRITTANIE JUDD RECRUITING MANAGER Copy to: ? Specimen/Source: ? ThinPrep Pap Test, Cervix/Endocervix, processed on [employer] ThinPrep Imaging System, with manual evaluation Last Menstrual Period: ? 09/26 Other: ? HPVA - HPV testing requested if ASC-US on the current ThinPrep Pap test. ? SPECIMEN ADEQUACY ? Satisfactory for Evaluation - transformation zone component present GENERAL CATEGORIZATION ? Negative for Intraepithelial Lesion or Malignan cy INTERPRETATION ? Shift in barron present suggestive of bacterial vaginosis. ? Document reviewed and electronically signed by: ? RAUL Abdalla(ASCP)(IAC) ? Report Date: ??05/15/2007 11:53 End of Report Specimen Performing Organization Address City/State/ZIP Code Phon e Number [facility] [address] [place] [address] SERVICES [facility] [address] [place] [address] documented in this encounter Visit Diagnoses Not on filedocumented in this encounter Care Teams Coke Still Cleaner Relationship Specialty Start Date End Date Dale Gomez MD PCP - General 12/06/[address] [place] [phone] documented as of this encounter
--- OUTSIDE RECORDS SUMMARY | 2022-05-05 00:46 | XMS_ITS | Encounter Summary ---
:1960 Author Organization [facility] Address [address] [place] [address] Care Team Providers Name Role Phone Dale Gomez MD Primary Care Provider Encounter Details Date Type Department Care Team Description 12/29/2003 Results Only [facility] - James Inman, HEDIS SPECIALIST conversion [address] [phone] (Wo rk) Social History Tobacco Use Types Packs/Day Years Used Date Never Assessed Sex Assigned at Date Recorded Not on file documented as of this encounter Plan of Treatment Not on filedocumented as of this encounter Procedures Procedure Name Priority Date/Time Associated Diagnosis Comme nts CYTOPATHOLOGY Routine 12/29/2003 0:00 EST Results for this procedure are i n the results section . documented in this encounter Results CYTOPATHOLOGY (12/29/2003 0:00 EST) Pathology Report: CYTOPATHOLOGY REPORT [facility] Reports generated via electronic interface contain katelyn ginal data; however they are lacking the format of the original re port. Caution should be taken when reading/interpreting unfo rmatted reports. Name: ? LAURA HARRIS ? Accession #: ? [id number] : ? 1960 (Age: 43) ??F ?Collect Date: ? 0306/2004 Location: ? [facility] ? Receive Date : ? 12/31/2003 Provider: ?JAMES MOODY HEDIS SPECIALIST Copy to: ? Specimen/Source: ?ThinPrep Pap Test, Cervix/ Endocervix Last Menstrual Period: ? 12/22/03 Other: ? HPVA - HPV testing requested if ASC-US on the current ThinPrep Pap test. ? SPECIMEN ADEQUACY ? Satisfactory for Evaluation - transformation zone component present GENERAL CATEGORIZATION ? Negative for Intraepithelial Lesion or Malignan cy ? Document reviewed and electronically signed by: ? RAUL Recinos(ASCP) ? Report Date: ??01/06/2004 08:26 End of Report Specimen Performing Organization Address City/State/ZIP Code Phon e Number [facility] [address] [place] [address] SERVICES [facility] [address] [place] [address] documented in this encounter Visit Diagnoses Not on filedocumented in this encounter Care Teams Customer Solutions Teammate Relationship Specialty Start Date End Date Dale Gomez MD PCP - General 12/06/[address] [place] [phone] documented as of this encounter
--- OUTSIDE RECORDS SUMMARY | 2022-05-05 00:46 | XMS_ITS | Encounter Summary ---
:1960 Author Organization [facility] Address [address] [place] [address] Care Team Providers Name Role Phone Dale Gomez MD Primary Care Provider Encounter Details Date Type Department Care Team Description 12/24/2002 Results Only [facility] - Brittanie Kirkpatrick NP conversion 185 [facility] 1 [address] [place] [phone] (Wo rk) Social History Tobacco Use Types Packs/Day Years Used Date Never Assessed Sex Assigned at Date Recorded Not on file documented as of this encounter Plan of Treatment Not on filedocumented as of this encounter Procedures Procedure Name Priority Date/Time Associated Diagnosis Comme [facility] CYTOPATHOLOGY Routine 12/24/2002 0:00 EST Results for this procedure are i n the results section . documented in this encounter Results CYTOPATHOLOGY (12/24/2002 0:00 EST) Pathology Report: CYTOPATHOLOGY REPORT [facility] Reports generated via electronic interface contain katelyn ginal data; however they are lacking the format of the original re port. Caution should be taken when reading/interpreting unfo rmatted reports. Name: ? LAURA HARRIS ? Accession #: ? [id number] : ? 1960 (Age: 42) ??F ?Collect Date: ? 02/2003 Location: ? [facility] ? Receive Date : ? 12/26/2002 Provider: ?BRITTANIE JUDD STRADDLE BUG OPERATOR Copy to: ? Specimen/Source: ?ThinPrep Pap Test, Vagina/ Endocervix Last Menstrual Period: ? 12/20/02 Menstrual/ Status: ? Hormonal/Contraceptive Status: ? Oral contraceptives Previous Gynecologic Pathology: ? Yes: Cytolysis 10/20/94 Other: ? HPVA - HPV testing requested if ASC-US on the current ThinPrep Pap test. ? SPECIMEN ADEQUACY ? Satisfactory for Evaluation - transformation zone component present GENERAL CATEGORIZATION ? Negative for Intraepithelial Lesion or Malignan cy ? Document reviewed and electronically signed by: ? RAUL Juarez(ASCP) ? Report Date: ??12/30/2002 08:59 End of Report Specimen Performing Organization Address City/State/ZIP Code Phon e Number [facility] [address] [place] [address] SERVICES [facility] [address] [place] [address] documented in this encounter Visit Diagnoses Not on filedocumented in this encounter Care Teams Housekeeper Supervisor Relationship Specialty Start Date End Date Dale Gomez MD PCP - General 12/06/[address] [place] [phone] documented as of this encounter
--- OUTSIDE RECORDS SUMMARY | 2022-05-05 00:46 | XMS_ITS | Encounter Summary ---
:1960 Author Organization [facility] Address [address] [place] [address] Care Team Providers Name Role Phone Dale Gomez MD Primary Care Provider Encounter Details Date Type Department Care Team Description 07/11/2010 Results Only [facility] Nupur Cortez NP Laboratory Services - [address] [place] [address] [place] [id number] [place] [address] [phone] Social History Tobacco Use Types Packs/Day Years Used Date Never Assessed Sex Assigned at Date Recorded Not on file documented as of this encounter Plan of Treatment Not on filedocumented as of this encounter Procedures Procedure Name Priority Date/Time Associated Diagnosis Comme nts CYTOPATHOLOGY Routine 07/11/2010 0:00 EDT Result s for this procedure are i n the results section . documented in this encounter Results CYTOPATHOLOGY (07/11/2010 0:00 EDT) Pathology Report: CYTOPATHOLOGY REPORT ? [facility] ? LAB Reports generated via electr onic interface contain original data; ? however they are lacking the format of the original report. ? Caution should be taken when reading/interpreting unformatted reports. ? Name: ? MELISSA HARRIS ? Accession #: ? [id number] ? : ? 1960 (Age: 50) ??F ?Collect Date: ? 07/11/2010 ? Location: ? [facility] ? R eceive Date: ? 07/12/2010 ? Provider: RAMIREZ BRODZINSKI N P ? Copy to: ? Final Report ? SPECIMEN ADEQUACY ? Satisfactory for Eval uation ? - assessment of transformati on zone component not applicable ( e.g. atrophy, ? vaginal sample, hysterectomy ) ? GENERAL CATEGORIZATION ? Negative for Intraepi thelial Lesion or Malignancy ? Last Menstural Period: 3 yrs ? Infection History: Linda: 2008 ? Bacterial vaginosis: 2007 ? Other: Additional clinical i nformation: Dysmenorrhea, abnormal pap 1993 repeat ?? pap WNL ? HPVDX - HPV testing requeste d regardless of diagnosis on current ThinPrep Pap ?? test. ? Specimen/Source: ??Pap Test, Cervix/Endocervix, ThinPrep Imaging System with ? manual evaluation ? Document reviewed and electr onically signed by: ? Taylor Verville,CT(ASCP) ? Report ??Date: 09// 2010 09:54 ? HPV with Pap Test ? Date Ordered: ? 0 07/18/2010 ? Status: ?? Signed Out ?Date Complete: ? 07/20/2010 ? By: ??System Interface ? Date Reported: ? 07/20/2010 ? Interpretation ? RESULT: Negative for HPV typ es 16, 18, 31, 33, 35, 39, 45, 51, ??with ? dysplasia and some cervical cancers. ? Comments ? Document reviewed and electr onically signed by: ? System Interface ? Report date: 07/20/10 08 ? By the signature above, the attending physician certifies that he/she has ? personally conducted a gross and/or microscopic examination of the described ? specimens and rendered or co nfirmed the above diagnosis. ? End of Report ? Specimen Performing Organization Address City/[facility] Code Phon e Number [facility] [address] [place] [address] SERVICES [facility] [address] [place] [address] documented in this encounter Visit Diagnoses Not on filedocumented in this encounter Care Teams Technical Report Writer Relationship Specialty Start Date End Date Dale Gomez MD PCP - General 12/06/[address] [place] [phone] documented as of this encounter
--- OUTSIDE RECORDS SUMMARY | 2022-05-05 00:46 | XMS_ITS | Encounter Summary ---
:1960 Author Organization [facility] Address [address] [place] [address] Care Team Providers Name Role Phone Dale Gomez MD Primary Care Provider Encounter Details Date Type Department Care Team Description 12/22/2009 Results Only [facility] Mark Hurst MD Laboratory Services - [id number] [place] [address] [place] [address] [phone] Social History Tobacco Use Types Packs/Day Years Used Date Never Assessed Sex Assigned at Date Recorded Not on file documented as of this encounter Plan of Treatment Not on filedocumented as of this encounter Procedures Procedure Name Priority Date/Time Associated Diagnosis Comme [facility] SURGICAL PATHOLOGY Routine 12/22/2009 0:00 EST Re sults for this procedure are i n the results section. documented in this encounter Results SURGICAL PATHOLOGY (12/22/2009 0:00 EST) Pathology Report: SURGICAL PATHOLOGY REPORT ? [facility] Reports generated via electr [email or web address] interface contain original data; ? LAB however they are lacking the format of the original report. ? Caution should be taken when reading/interpreting unformatted reports. ? Name: ? HARRIS, KATHLEE N ? Accession #: ? [id number] ? : ? 1960 (Age: 49) ??F ? Collec t Date: ? 12/22/2009 ? Location: ? [facility] ? R eceive Date: ? 12/23/2009 ? Provider: EILEEN SRIVASTAVAELSON MD ? Copy to: JAMES MOODY BANK CASHIER ? Final Pathologic Diagnosis: ? Gallbladder, cholecys tectomy: ? 1. ?Cholelithia sis. ? 2. ? Attached liver pare nchyma with focal steatosis. ? Document reviewed and electr onically signed by: ? NJ MOUNT MD ? Report ??Date: 12/24/2009 16 :46 ? By the signature above, the attending physician certifies that he/she has ? personally conducted a gross and/or microscopic examination of the described ? specimens and rendered or co nfirmed the above diagnosis. ? Specimen(s) Received: ? GB ? Clinical History: ? Biliary colic ? Gross Description: ? Received in formalin labelled Lena Harris and gallbladder is an ?? 8.5 x 3.5 x 2.2 cm intact ga llbladder that has an attached, patent 0.5 cm in ? length and 0.2 cm in diamete r cystic duct. ??The margin of the cystic duct is ? inked black. ??The serosa is dark green, smooth, and glistening. ??On the outside, attached to the gallbladder, is a firm, brown fragment of tissue measuring 1.5 x 1.0 x 0.5 cm, probably repre senting liver. ??Upon opening the gallbladder, there are innumerable choleliths t hat range from 0.2 cm to 2.0 cm. ??The mucosa is dark green and velvety, with no d iscrete masses present. ??The wall thickness is 0.2 ?? cm. ??The en face cystic anisha t margin, two segments of gallbladder, and a segment of the probable liver are allison bmitted in a single cassette. ??(Ruben Jimenez/aneesh ? End of Report ? Specimen Performing Organization Address City/State/ZIP Code Phon e Number [facility] [address] [place] [address] SERVICES [facility] [address] [place] [address] documented in this encounter Visit Diagnoses Not on filedocumented in this encounter Care Teams Mobile Electronics Installer Relationship Specialty Start Date End Date Dale Gomez MD PCP - General 12/06/[address] [place] [phone] documented as of this encounter
--- OUTSIDE RECORDS SUMMARY | 2022-05-05 00:46 | XMS_ITS | Encounter Summary ---
:1960 Author Organization [facility] Address [address] [place] [address] Care Team Providers Name Role Phone Dale Gomez MD Primary Care Provider Encounter Details Date Type Department Care Team Description 11/19/2019 Lab Requisition [facility] Unknown, Provider, Pathology & Laboratory [facility] [address] [place] [address] [place], [place] [id number] Social History Tobacco Use Types Packs/Day Years Used Date Never Assessed Sex Assigned at Date Recorded Not on file documented as of this encounter Plan of Treatment Not on filedocumented as of this encounter Procedures Procedure Name Priority Date/Time Associated Diagnosis Comme nts CELIAC DISEASE Routine 11/19/2019 11:38 Results f or this PANEL EST procedure are i n the results section. PTH INTACT Routine 11/19/2019 11:38 Results for this EST procedure are i n the results section. documented in this encounter Results (ABNORMAL) PTH INTACT (11/19/2019 11:38 EST) Pathologist Sig nature Intact PTH 116 (H) 19 - 88 pg/mL [facility] Specimen Blood - Venous blood (substance) Performing Organization Address City/State/ZIP Code Phon e Number [facility] [address] [place] [address] SERVICES CELIAC DISEASE PANEL (11/19/2019 11:38 EST) Tissue <1.2 <4.0 U/mL [facility] Transglutaminase Comment: CENTER Antibody [facility] A negative result may be due to IgA deficiency and does not rule out celiac disease. SERVICES ? Negative: ??<4.0 U/mL ? Weak Positive: ??4.0 - 10.0 U/mL ? Positive: ??>10.0 U/mL Results were obtained with keanu robins Glocal QUANTA Lite R h-tTG IgA DENNYS assay on the [address] [employer] DSX. IgA 108 85 - 499 [facility] mg/dL [facility] Celiac Disease [facility] Interpretation Negative Serology. Celiac di sease unlikely. Approximately 10% of patients with celiac disease are seronegative. Patients who are already adhering to a gluten-free diet may also be seronegative. If dara [address] c disease is highly clinical ly suspected, referral to gastroenterology for additional evaluation is recommended. LABORATORY SERVICES Specimen Blood - Venous blood (substance) Performing Organization Address City/State/ZIP Code Phon e Number [facility] [address] [place] [address] SERVICES documented in this encounter Visit Diagnoses Not on filedocumented in this encounter Care Teams Drafter Commercial Relationship Specialty Start Date End Date Dale Gomez MD PCP - General 12/06/[address] [place] [phone] documented as of this encounter
== END ==
PROVIDERS: PCP Nurse Practitioner Family; Visit Provider Nurse Practitioner Family
DX: M25.561 Pain in right knee (principal); Z98.890 Other specified postprocedural states
CPT/HCPCS: 73562

== ENCOUNTER 2022-06-01 15:25 | Outpatient (REF) | payer MEDICARE, MEDICAID, SELFPAY ==
[2022-06-01 14:41] LABS: HGB 11.2 g/dL (11.2-15.7); MCH 28.3 pg (27.0-33.0); MCHC 31.1 % (32.0-36.0); MCV 91 fL (80-95); MPV 11.1 fL (8.0-11.0); Platelet Count 253 10^3/uL (130-400); RBC 3.96 10^6/uL (3.93-5.22); RDW 13.9 % (11.7-14.6); RDW-SD 46.4 fL; WBC 7.28 10^3/uL (4.4-10.8)
[2022-06-01 15:04] LABS: ALT 42 U/L (14-59); AST 28 U/L (15-37); Albumin 3.6 g/dL (3.4-5.0); Alkaline Phosphatase 123 U/L (46-116); Anion Gap 6.4 mmol/L (3-11); BUN 15 mg/dL (7-18); Bilirubin, Total 0.5 mg/dL (0.2-1.0); CO2 29.6 mmol/L (21.0-32.0); CREATININE 1.1 mg/dL (0.55-1.02); Calcium 8.2 mg/dL (8.5-10.1); Chloride 108 mmol/L (98-107); Estimated GFR 50.33 (mL/min/1.73m2); Glucose 114 mg/dL (74-106); Potassium 3.8 mmol/L (3.5-5.1); Sodium 144 mmol/L (136-145); TSH (W/Ref FT4) 2.04 uIU/mL (0.36-3.74); Total Protein 7.1 g/dL (6.4-8.2)
--- OUTSIDE RECORDS SUMMARY | 2022-06-01 15:28 | XMS_ITS | Encounter Summary ---
:1960 Author Organization [facility] [place] [address] Care Team Providers Name Role Phone Destinee Bhatt APRN Primary Care Provider Reason for Visit Consultation (Routine) - Closed Specialty Diagnoses / Procedures Referred By Contact Refer red To Contact Allergy Diagnoses Rash and other nonspecific skin eruption Destinee Bhatt APRN [facility] [address]m [address] [place] [address] [place] [address] Fax: Referral ID Status Reason Start Date Expiration Date Visits V isits Requested Authorized [id number] Closed Consult, Test 08/18/2020 08/18/2021 [facility] PCP Updated and/or Approved Encounter Details Date Type Department Care Team Description 09/17/2020 Office Visit Allergy at [facility] Jaylene Gaston; [facility] MD [place] Allergy to [place] [address] ALLERGY DEPT [phone] [place], [place] [address] Social History Tobacco Use Types [...] Sign Reading Time Taken Comments Blood Pressure 151/89 09/17/2020 9:26 AM EST Pulse 75 09/17/2020 9:26 AM EST Temperature - - Respiratory Rate - - Oxygen Saturation 99% 09/17/2020 9:26 AM EST Inhaled Oxygen Concentration - - Weight 90.7 kg (200 lb) 09/17/2020 9:26 AM EST Height - - Body Mass Index 37.81 04/07/2020 2:09 PM EDT documented in this encounter Patient Instructions Patient InstructionsBenjamin Casillas MD - 09/17/2020 9:30 AM EST As discussed during your visit, we suggest continued use of moisturizing skin cream/ointments, though please ensure that the lotion is fragrance-free. documented in this encounter Progress Notes Benjamin Casillas MD - 09/17/2020 9:30 AM EST CC: Skin rash with pruritus HPI: Lena Alexandre is a 60 y.o. woman with a PMH of asthma, chronic kidney disease, chronicpain secondary to traumatic injury and hypertension presenting for evaluation of one year of skin rash with pruritus at the request of Destinee Bhatt. For the past year, patient reports a persistent diffuse rash. She notes that the location often changes, though often includes her neck, back, upper arms, and thighs. She describes the rash as skin bumps with intermittent pruritus, though they are not typically erythematous unless she scratches them. She has been using diphenhydramine intermittently, with some improvement in pruritus. Hot showers and hot forced air (such as from her car heating system) exacerbate the rash, and she recalls that therash is worse during the Fall/Winter seasons. She has frequently changed her soaps, lotions, shampoos, and detergents, without exacerbation or improvement. She has been using fragrance-free laundry detergent for the past month and has recently been using aloe-vera skin lotion, likely with fragrances. In 2001, she was seen by [facility] for chronic allergic rhinitis, and underwent skin testing, which appears to have been positive for dust mite and cat (though the original report is not available).She underwent immunotherapy for dust mites between 7077-4034. She has been using dust mite covers for furniture, and launders them frequently. She recalls that her symptoms were primarily sinus congestion, headache and ear fullness, and does not recall a rash with exposure to either triggers. During this time, she had been trialed on loratadine and fexofenadine. It appears per documentation, that shehas been on a 2nd-generation anti-histamine since this work-up, and has been taking cetrizine 10mg daily for at least the past few years. Since being on these medications, she has had improvement in her sinus headaches. She has generic fluticasone at home, however has not trialed daily usage of it. ticasone In the past year (patient is unsure of the date), a skin biopsy was performed by her PCP (Marko Duffy APRN at [facility]), which was suggestive that her skin rash was medication triggered. She was taken off of multiple medications, including lisinopril, statins, and other antihypertensives, with no improvement in her rash. She has since been restarted on lisinopril. 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 She unfortunately does not have a photo of the event, butnotes that her sister also saw the rash. She went to [facility], who suspected it was likely allergy-related and gave her a course of Prednisone, though the patient does not recall dosage and duration. She was referred back to her PCP, who saw her one week ago, and suggested that it might be eczema. She has since completed the course of prednisone, though does not recall the date of her last dosage. She reports a history of an allergy to sulfa drugs. She had been treated once with an antibiotic of that class, though does not recall the specific medication, and within a few days of being on the course of therapy, developed urticaria that resolved after cessation of the medication. She has other med ications on her allergy list, however these appear to be adverse drug reactions, including an unknown reaction to sertraline (the patient does not recall), lightheadedness and dizziness with trazadone,and pruritus with oxycodone- acetaminophen. She does not have a history of food allergies. ROS is per HPI otherwise negative. ENVIRONMENTAL HISTORY Occupation: Retired (disability) Exposed to chemicals or hazardous fumes at work: No Type of home: Apartment Heating system: Gas Heating Central A/C: No Wood stove: No Pests inside home: Mice Known mold, mildew, or water damage: No Pets: No Farm animals on property: No Patient Active Problem List Diagnosis Code ??? Reflux [id number] ??? Nephrolithiasis N20.0 ??? Liver disease K76.9 ??? Hypertension I10 ??? Anxiety F41.9 ??? Depression F32.9 ??? Hypercholesterolemia E78.00 ??? GERD (gastroesophageal reflux disease) K21.9 ??? Asthma J45.909 ??? Hyperlipidemia E78.5 ??? Hx of multiple trauma Z87.828 Past Medical History: Diagnosis Date ??? Anxiety [...] STENT PLACEMENT 2009 and removal for stones ??? celecoxib (CeleBREX) 200 mg Capsule ??? cholecalciferol, Vitamin D3, (Vitamin D3) 1,000 unit Tablet ??? clonazePAM (KlonoPIN) 1 mg Tablet ??? fluticasone propionate (FLONASE) 50 mcg/actuation [place], Suspension ??? lisinopriL (Prinivil;Zestril) 20 mg Tablet ??? pantoprazole EC (Protonix) 40 mg Tablet, Delayed Release (E.C.) ??? penicillin v potassium (VEETID) 500 mg Tablet ??? Advair Diskus 100-50 mcg/dose Disk with Device ??? alendronate (Fosamax) 70 mg Tablet ??? potassium chloride ER (K-Dur/Klor-Con) 20 mEq Tab Sust.Rel. Particle/Crystal ??? cetirizine (ZYRTEC) 10 mg Tablet ??? atorvastatin (LIPITOR) 20 mg Tablet ??? Cqgxavo-Xdskwcaoo-Vmzs 333-133-5 mg Tablet ??? atenolol (TENORMIN) 100 mg Tablet ??? NEXIUM 40 mg Capsule, Delayed Release(E.C.) ??? prochlorperazine (COMPAZINE) 10 mg Tablet ??? Mometasone (NASONEX) 50 mcg/Actuation [place] ??? acetaminophen (TYLENOL) 500 mg tablet ??? ALBUTEROL INHL ??? fluticasone-salmeterol (ADVAIR DISKUS) 250-50 mcg/dose diskus inhaler ??? MULTI-VITAMIN ORAL ??? Levalbuterol Tartrate (XOPENEX HFA) 45 mcg/Actuation inhaler Allergies Allergen Reactions ??? Oxycodone-Acetaminophen Itching ??? Sulfa (Sulfonamide Antibiotics) Hives ??? House Dust Headaches, Asthma ??? Zoloft [Sertraline] ??? Trazodone Dizziness, lightheaded Family History Problem Relation Age of Onset ??? Coronary Artery Disease Mother ??? Diabetes Mother PHYSICAL EXAM: BP 151/89 Pulse 75 Wt 90.7 kg (200 lb) SpO2 99% BMI 37.81 kg/m?? Gen: awake, alert, no acute distress Head: normocephalic, atraumatic EYES: Conjunctiva not injected or icteric. No discharge. No eyelid edema. ENT: Tympanic membranes clear, no lesions, erythema, or drainage. Normal external ear canals. Nasal passages show normal mucosa, normal turbinates bilaterally, no lesions. OP mucosa well hydrated, clear without erythema or cobblestoning. No lesions or exudates. No visible OP edema. NECK: supple, symmetric, no masses, trachea midline LYMPH: no submandibular, cervical, or supraclavicular LAD CVS: RRR, no m/r/g LUNGS: CTAB, no wheezing or rales, breathing unlabored ABD: soft, non-tender, non-distended, bowel sounds present SKIN: Intermittent scattered mildly erythematous raised papules with excoriations on the upper arms bilaterally R>L , Healing eschar on her posterior right thigh with surrounding evidence of excoriation EXTREMITIES: warm and well-perfused, normal bulk, symmetric ROM, no edema NEURO: EOMI, no dysarthria PSYCH: normal grooming, appropriate mood and affect, normal volume/quantity/tone of speech, normal thought process and content ASSESSMENT AND PLAN: 60 y.o. woman with PMH of asthma, chronic kidney disease, chronic pain secondary to traumatic injuryand hypertension presenting for evaluation of one year of persistent skin rash with pruritus. Per the patient's history, there does not appear to be a clear trigger for her symptoms. Although she does have a history of dust mite allergies, she was treated with immunotherapy between 4612-1797 and reports regular laundering of her dust mite covers, suggesting this is less likely, though not ruled out. Her medication list does not include typical medications notorious for this reaction, and she has already been taken off of NSAIDs due to her renal dysfunction. With this history, she is unlikely to bene fit from skin testing, though this can be considered in the future if further work-up remains negative and the rash persists. As the symptoms are primarily the skin rash with non-generalized pruritus, recommended that the patient return to Dermatology for further work-up. In the interim, discussed usage of fragrance-free ointments/creams for skin moisturizing. Additionally, discussed discontinuation of daily cetirizine usage, to see if the cetirizine is providing significant benefit to her symptoms.Will plan for follow-up, as needed, with further evaluation by Dermatology and the patient's PCP. Jaylene Singh MD - 09/17/2020 9:30 AM EST I have seen and examined the patient and reviewed Dr. Benjamin Casillas's history and physical exam Mariann agree with the details as written. The assessment and plan were formulated in discussion with me and I agree with them as documented. 60 y.o. woman with PMH of asthma, chronic kidney disease, chronicpain secondary to traumatic injury and hypertension presenting for evaluation of one year of rash ofunclear etiology. She has scattered papules, which she scratches. She has previously been skin test positive to dust mites, and does have dust mite encasings. She has tried changing medications withoutimprovement. She has recently been advised to start a fragrance free emollient. She is currently using an aloe vera lotion with fragrance and Sarna. Return as needed. documented in this encounter Plan of Treatment Not on filedocumented as of this encounter Visit Diagnoses Diagnosis Rash Rash and other nonspecific skin eruption Allergy to Pakistani house dust mite documented in this encounter Care Teams Proposal Review Analyst Relationship Specialty Start Date End Date Destinee Bhatt APRN PCP - General Family Medicine 08/23/20 [address] [place] [address] documented as of this encounter
--- OUTSIDE RECORDS SUMMARY | 2022-06-01 15:28 | XMS_ITS | Encounter Summary ---
:1960 Author Organization [facility] [place] [address] Care Team Providers Name Role Phone Destinee Bhatt APRN Primary Care Provider Encounter Details Date Type Department Care Team Description 03/17/2021 Laboratory Appointment Lab 3L [facility] CKD (chronic kidney [facility] disease) stage 3, GFR [facility] 30-59 ml/ [place] [address] Social History Tobacco Use Types [...] Signature Glucose Lvl 105 65 - 199 [facility] mg/dL [facility] Comment: Diabetes: >=200 mg/dL plus symp toms BUN 23 (H) 8 - 18 mg/dL [facility] Creatinine 1.23 (H) 0.70 - 1.20 mg/dL [facility] Sodium 143 135 - 145 mmol/L [facility] Potassium 4.2 3.5 - 5.0 mmol/L [facility] Comment: Please note: ??Patients with WBC >100,00 0 may have falsely elevated Potassium levels. ??For accurate Potassium quantif ication in these patients send serum separator tube (gold top) for subsequent determinations. ??Contact the Clinical Chemistry Laboratory if there are any qu estions. Chloride 106 98 - 107 mmol/L [facility] CO2 26 22 - 31 mmol/L [facility] Anion Gap 11 5 - 15 mmol/L [facility] Calcium 9.0 8.5 - 10.5 mg/dL [facility] Estimated GFR 48 (L) >=60 mL/min/1.73 m?? [facility] Comment: This patient? s estimated [...] Organization Address City/State/[place] [address] documented in this encounter Visit Diagnoses Diagnosis CKD (chronic kidney disease) stage 3, GF R 30-59 ml/min Chronic kidney disease, Stage III (moder ate) documented in this encounter Care Teams Machine Taper Relationship Specialty Start Date End Date Destinee Bhatt APRN PCP - General Family Medicine 08/23/20 [address] [place] [address] documented as of this encounter
--- OUTSIDE RECORDS SUMMARY | 2022-06-01 15:28 | XMS_ITS | Encounter Summary ---
:1960 Author Organization [facility] [place] [address] Care Team Providers Name Role Phone Marko Duffy SHARONA Primary Care Provider Encounter Details Date Type Department Care Team Description 04/07/2020 Laboratory Appointment Lab 3L Ene Kelly Chronic kidney disease, unspecified CKD stage; [facility] CKD (chronic kidney disease) stage 3, GFR 30-59 ml/[place] [id number] Social History Tobacco Use Types Packs/Day Years [...] Signature Glucose Lvl 135 65 - 199 [facility] mg/dL [facility] Comment: Diabetes: >=200 mg/dL plus symp toms BUN 16 8 - 18 mg/dL [facility] Creatinine 1.13 0.70 - 1.20 mg/dL [facility] Sodium 142 135 - 145 mmol/L [facility] Potassium 4.0 3.5 - 5.0 mmol/L [facility] Comment: Please note: ??Patients with WBC >100,00 0 may have falsely elevated Potassium levels. ??For accurate Potassium quantif ication in these patients send serum separator tube (gold top) for subsequent determinations. ??Contact the Clinical Chemistry Laboratory if there are any qu estions. Chloride 104 98 - 107 mmol/L [facility] CO2 24 22 - 31 mmol/L [facility] Anion Gap 14 5 - 15 mmol/L [facility] Calcium 8.2 (L) 8.5 - 10.5 mg/dL [facility] Estimated GFR 53 (L) >=60 mL/min/1.73 m?? [facility] Comment: The eGFR was calculated using the CKD-EP I equation. As with all creatinine based estimates of kidney function, eGFR values calculated with the CKD-EPI equation are not accurate in patients wi th acute kidney failure, extremes of body mass or the acutely ill. http://[employer]/[facility] eGFR 61 >=60 mL/min/1.73 m?? [facility] Comment: The eGFR was calculated using the CKD-EP I equation. As with all creatinine based estimates of kidney function, eGFR values calculated with the CKD-EPI equation are not accurate in patients wi th acute kidney failure, extremes of body mass or the acutely ill. http://[employer]/[facility] Specimen Anatomical Collection Method Collection Time Receive d Time (Source) Location / / Volume Laterality Blood specimen 04/07/2020 1:55 PM 020 2:05 (specimen) EDT PM EDT Resulting Agency Comment Spec In Lab Benitez Adames MD CHEMISTRY ORDERABLES Performing Organization Address City/State/[place] [address] documented in this encounter Visit Diagnoses Diagnosis Chronic kidney disease, unspecified CKD stage CKD (chronic kidney disease) stage 3, GF R 30-59 ml/min Chronic kidney disease, Stage III (moder ate) documented in this encounter Care Teams Spring Maker Relationship Specialty Start Date End Date Marko Duffy APRN PCP - General Family Medicine 07/10/19 08/22/20 [address] [place] [address] documented as of this encounter
--- OUTSIDE RECORDS SUMMARY | 2022-06-01 15:28 | XMS_ITS | Encounter Summary ---
:1960 Author Organization [facility] [place] [address] Care Team Providers Name Role Phone Marko Duffy APRN Primary Care Provider Reason for Visit Reason Comments Skin Check Encounter Details Date Type Department Care Team Description 06/11/2020 Office Visit Dermatology at [facility] Benitez King MD Neurodermatitis [address] [place] [address] [facility] [place] [address] [place] [address] [phone] (Wo rk) Social History Tobacco Use Types [...] and I do not see it on [facility] website. Patient states that she is disabled [...] icus documented in this encounter Care Teams Ed Educational Aide Relationship Specialty Start Date End Date Marko Duffy APRN PCP - General Family Medicine 07/10/19 08/22/20 [address] [place] [address] documented as of this encounter
--- OUTSIDE RECORDS SUMMARY | 2022-06-01 15:28 | XMS_ITS | Encounter Summary ---
:1960 Author Organization [facility] [place] [address] Care Team Providers Name Role Phone MillerDestinee SHARONA Primary Care Provider Encounter Details Date Type Department Care Team Description 03/17/2021 Office Visit Nephrology Hypertension Benitez dAames 3 chronic at [facility] MD Stephy kidney disease, [facility] ed whether [facility] [address] stage 3a [place] 3[place] [address] [place] [address] [phone] Social History Tobacco Use Types Packs/Day Years [...] needed. ??? fluticasone propionate (FLONASE) 50 mcg/actuation [place], Suspension SPRAY 1 2 SPRAYS INTO EACH [...] Take 20 mg by mouth daily. ??? Tklkuwf-Zvoibpxiz-Exdt 333-133-5 mg Tablet Take by mouth daily. ??? atenolol (TENORMIN) 100 mg Tablet Take 100 mg by mouth daily. ??? [DISCONTINUED] NEXIUM 40 mg Capsule, Delayed Release(E.C.) Take 40 mg by mouth daily. ??? Mometasone (NASONEX) 50 mcg/Actuation [place] by Nasal route as needed. ??? acetaminophen [...] Benitez Adames MD, MPH Section of Nephrology #[id number] documented in this encounter Plan of Treatment [...] CKD documented in this encounter Care Teams Stratigraphy Teacher Relationship Specialty Start Date End Date Destinee Bhatt APRN PCP - General Family Medicine 08/23/20 [address] [place] [address] documented as of this encounter
--- OUTSIDE RECORDS SUMMARY | 2022-06-01 15:28 | XMS_ITS | Encounter Summary ---
:1960 Author Organization [facility] [place] [address] Care Team Providers Name Role Phone Marko Duffy SHARONA Primary Care Provider Encounter Details Date Type Department Care Team Description 04/07/2020 Office Visit Nephrology Benitez Adames CKD (chronic kidney disease) stage 3, GFR 30-59 ml/min; Hypertension at [facility] [place] Stephy Hypertensive kidney disease with CKD sta ge III [facility] [place] [address] [place] [address] [phone] Social History Tobacco Use Types Packs/Day Years [...] Take 20 mg by mouth daily. ??? Fbsklbs-Zkvogqrhd-Zlzk 333-133-5 mg Tablet Take by mouth daily. ??? atenolol (TENORMIN) 100 mg Tablet Take 100 mg by mouth daily. ??? NEXIUM 40 mg Capsule, Delayed Release(E.C.) Take 40 mg by mouth daily. ??? prochlorperazine (COMPAZINE) 10 mg Tablet every 8 hours as needed. ??? Mometasone (NASONEX) 50 mcg/Actuation [place] by Nasal route as needed. ??? acetaminophen [...] Benitez Adames MD, MPH Section of Nephrology #[id number] documented in this encounter Plan of Treatment Not on filedocumented as of this encounter Results (ABNORMAL) Basic Metabolic Panel (non-fasting) (03/17/2021 2:13 PM EDT) athologist Signature Glucose Lvl 105 65 - 199 [facility] mg/dL [facility] Comment: Diabetes: >=200 mg/dL plus symp toms BUN 23 (H) 8 - 18 mg/dL [facility] Creatinine 1.23 (H) 0.70 - 1.20 mg/dL [facility] Sodium 143 135 - 145 mmol/L [facility] Potassium 4.2 3.5 - 5.0 mmol/L [facility] Comment: Please note: ??Patients with WBC >100,00 0 may have falsely elevated Potassium levels. ??For accurate Potassium quantif ication in these patients send serum separator tube (gold top) for subsequent determinations. ??Contact the Clinical Chemistry Laboratory if there are any qu estions. Chloride 106 98 - 107 mmol/L [facility] CO2 26 22 - 31 mmol/L [facility] Anion Gap 11 5 - 15 mmol/L [facility] Calcium 9.0 8.5 - 10.5 mg/dL [facility] Estimated GFR 48 (L) >=60 mL/min/1.73 m?? [facility] Comment: This patient? s estimated [...] Organization Address City/State/[place] [address] documented in this encounter Visit Diagnoses Diagnosis CKD (chronic kidney disease) stage 3, GF R 30-59 ml/min Chronic kidney disease, Stage III (moder ate) Hypertensive kidney disease with CKD sta ge III Unspecified hypertensive kidney disease with chronic kidney disease stage I through stage IV, or unspecified documented in this encounter Care Teams Undergraduate Intern Relationship Specialty Start Date End Date Marko Duffy APRN PCP - General Family Medicine 07/10/19 08/22/20 [address] [place] [address] documented as of this encounter
--- OUTSIDE RECORDS SUMMARY | 2022-06-01 15:28 | XMS_ITS | Clinical Summary ---
:1960 Author Organization [facility] [place] [address] Care Team Providers Name Role Phone Destinee [...] 50 by Nasal route 0 Active mcg/Actuation [place] as needed. acetaminophen (TYLENOL) Take 1,000 mg [...] by 0 Active mg Tablet mouth daily. Lvmcsen-Viatwfaiz-Pyqj Take by mouth 0 Active 333-133-5 mg Tablet daily. alendronate (Fosamax) 70 Take 70 mg by 0 Active mg Tablet mouth every 7 days. Take in AM with full glass of water, on an empty stomach. Do not lie down for 30 min. fluticasone propionate SPRAY 1 2 0 01/10/2020 Active (FLONASE) 50 SPRAYS INTO mcg/actuation Felch, EACH NOSTRIL Suspension ONCE A DAY lisinopriL [...] post fall through a ceiling to ce [facility] floor T 12 burst fx R [...] Addre ss Type Group MEDICARE MEDICARE PART [id number] 2007-Presen [phone] [place] [address] [place] [id number] 2019-Prese [phone] [address] [place] [address] Care Teams Exhaust Equipment Operator Relationship Specialty Start Date End Date Destinee Bhatt APRN PCP - General Family Medicine 08/23/20 [address] [place], [place] [id number]
--- OUTSIDE RECORDS SUMMARY | 2022-06-01 15:29 | XMS_ITS | Encounter Summary ---
:1960 Author Organization [facility] [place] [address] Care Team Providers Name Role Phone Unavailable Primary Care Provider Unavailable Encounter Details Date Type Department Care Team Description 04/16/2007 Ancillary Procedure Radiology Library at Destinee Bhatt APRN [facility] [address] [place] [address] [facility] [phone] [place] [address] (Work) [phone] Social History Tobacco Use Types Packs/Day Years [...] Organization Address City/State/ZIP Code Phon e Number [place], [place] documented in this encounter Visit Diagnoses Not on filedocumented in this encounter
--- OUTSIDE RECORDS SUMMARY | 2022-06-01 15:29 | XMS_ITS | Encounter Summary ---
:1960 Author Organization [place] [address] Care Team Providers Name Role Phone Mikala Cortez APRN Primary Care Provider [phone] Encounter Details Date Type Department Care Team Description 11/08/2010 Procedure visit Gastroenterology at [facility], DR SCHMIDT Canceled ([facility] Karen Chavez RN Cancelled) [place] [address] Social History Tobacco Use Types Packs/Day Years Used Date Never Assessed Sex Assigned at Date Recorded Not on file documented as of this encounter Plan of Treatment Not on filedocumented as of this encounter Visit Diagnoses Not on filedocumented in this encounter Care Teams Bug Trimmer Relationship Specialty Start Date End Date Mikala Cortez APRN PCP - General 09/13/10 05/16/16 documented as of this encounter
--- OUTSIDE RECORDS SUMMARY | 2022-06-01 15:29 | XMS_ITS | Encounter Summary ---
:1960 Author Organization [facility] [place] [address] Care Team Providers Name Role Phone Stephany Molina APRN Primary Care Provider Encounter Details Date Type Department Care Team Description 09/27/2016 Hospital Encounter XRay at [facility] Glenn Mendiola Chronic pain of left [address] Torsten MD ankle [facility] [address] [place] [phone] [facility] [place], [place] [address] Social History Tobacco Use Types [...] 50 by Nasal route as 0 mcg/Actuation [place] needed. acetaminophen (TYLENOL) 500 Take 1,000 mg [...] ankle documented in this encounter Care Teams Landfill Grader Relationship Specialty Start Date End Date Stephany Molina APRN PCP - General Family Medicine 05/17/16 05/21/19 documented as of this encounter
--- OUTSIDE RECORDS SUMMARY | 2022-06-01 15:29 | XMS_ITS | Encounter Summary ---
:1960 Author Organization [facility] [place] [address] Care Team Providers Name Role Phone Stephany Molina APRN Primary Care Provider Reason for Visit Reason Comments Pain Management Pain, Chronic Back Pain Consultation ([facility]) - Closed Specialty Diagnoses / Procedures Referred By Contact Refer red To Contact Pain Management Diagnoses Chronic pain. Left ankle and back. Stephany Molina APRN [facility] [address] CORRECTIONAL FACILIT [facility] [address] [place] [address] [place] [address] Fax: Referral ID Status Reason Start Date Expiration Date Visits V isits Requested Authorized [id number] Closed Consult, 05/17/2016 05/17/2017 1 1 [facility] Encounter Details Date Type Department Care Team Description 07/20/2016 Office Visit Pain Management at [facility] Chro luc bilateral low back pain without sciatica (Primary Dx); Brenda NEGRO Encounter for long-term opiate analgesic use [facility] [address] [place], [place] [facility] [address] [place] [address] Social History Tobacco Use Types [...] NOT TRIALED PT Pool tx yes x [phone] yes .Functional Jew Program x 2004 yes TENS PROCEDURES/SURGERY TYPE [...] Drugs [] 5 [] 5 3. Age (eveline box if 16-45) [] 1 [] 1 [...] Medical records reviewed? Magdaome findings? Stephany Molina GOLD LEAF GILDER No-none available Unknown Other significant history History of DUI or DWI? Yes History of incarceration? No History of discharge from another pain provider? No History of an inconsistent Urine Drug Screen? Yes-recently took a friend's percocet and tested positive for nonprescribed opioids Current use of a benzodiazepine? Yes Current use of other ROTARY ADJUSTER depressant? No Current diagnosis of Obstructive Seep [...] Zoloft [sertraline]; and Trazodone MEDICATIONS: Medications 07/20/16 9569 Medication Sig Taking? WELCHOL 625 mg Tablet Yes acetaminophen-codeine (TYLENOL #3) 300-30 mg Tablet Yes NEXIUM 40 mg Capsule, Delayed Release(E.C.) Yes lisinopril (PRINIVIL;ZESTRIL) 10 mg Tablet Yes prochlorperazine (COMPAZINE) 10 mg Tablet Yes fluticasone (FLONASE) 50 mcg/actuation [place], Suspension 1 spray daily. Yes melatonin 3 mg Tablet Take by mouth. Yes ferrous sulfate 325 mg (65 mg iron) Tablet Take 325 mg by mouth daily (with breakfast). Yes potassium chloride (MICRO-K) 10 mEq Capsule, Sustained Release Take 10 mEq by mouth 2 times daily. Yes Mometasone (NASONEX) 50 mcg/Actuation [place] by Nasal route. Yes acetaminophen (TYLENOL) 500 [...] for her in the Pain Clinic at [facility]. We discussed that her pain should be [...] is difficult to get into CBT at [facility] at this time due to staffing shortages. [...] tried for pain. 4. Follow up with Karen Hill APRN or Shu Juárez APRN in [...] athologist Signature U Benzo Conf See note [facility] Comment: Please see scanned report in Ch art Review under the Non-DH Laboratory Heading. Specimen Anatomical Collection Method Collection Time Receive d Time (Source) Location / / Volume Laterality Urine specimen 07/20/2016 4:45 PM 016 9:43 (specimen) EDT AM EDT Resulting Agency Comment Spec In Lab Felipe Rubio MD URINE ORDERABLES Performing Organization Address City/State/ZIP [place] [address] Drug Screen with Confirmation, Urine (07/20/2016 4:45 PM EDT) P athologist Signature U VINNY w/Conf See note [facility] Comment: Please see scanned report in [...] Rubio MD URINE ORDERABLES Performing Organization Address City/[facility]/ZIP [place] [address] documented in this encounter Visit Diagnoses Diagnosis Chronic bilateral low back pain without sciatica - Primary Encounter for long-term opiate analgesic use Encounter for long-term (current) use of other medications documented in this encounter Care Teams Etcher Apprentice Relationship Specialty Start Date End Date Stephany Molina APRN PCP - General Family Medicine 05/17/16 05/21/19 documented as of this encounter
--- OUTSIDE RECORDS SUMMARY | 2022-06-01 15:29 | XMS_ITS | Encounter Summary ---
:1960 Author Organization [facility] [place] [address] Care Team Providers Name Role Phone Stephany Molina APRN Primary Care Provider Encounter Details Date Type Department Care Team Description 09/13/2016 Telephone Pain Management at Claudia [place], [place] [address] Social History Tobacco Use Types Packs/Day [...] on filedocumented in this encounter Care Teams Negative Turner Apprentice Relationship Specialty Start Date End Date Stephany Molina APRN PCP - General Family Medicine 05/17/16 05/21/19 documented as of this encounter
--- OUTSIDE RECORDS SUMMARY | 2022-06-01 15:29 | XMS_ITS | Encounter Summary ---
:1960 Author Organization [facility] Address [address] [facility] [place] [address] Care Team Providers Name Role Phone Stephany Molina APRN Primary Care Provider Encounter Details Date Type Department Care Team Description 09/27/2016 Hospital Encounter XRay at [facility] Glenn Mendiola Right knee pain, [address] Torsten MD unspecified [place], [place] [facility] chronicity [address] [place] [phone] ORTHOPAEDIC SURGERY [place], [place] [address] Social History Tobacco Use Types [...] 50 by Nasal route as 0 mcg/Actuation [place] needed. acetaminophen (TYLENOL) 500 Take 1,000 mg [...] LAT EST unspecified procedure a re in [facility] chronicity the result s RIGHT section. documented in this encounter Results XR Knee Standing Alignment AP Lat [facility] [place] Right (09/27/2016 4:17 PM EST) Anatomical Region [...] chronicity documented in this encounter Care Teams Admitting Manager Relationship Specialty Start Date End Date Stephany Molina APRN PCP - General Family Medicine 05/17/16 05/21/19 documented as of this encounter
--- OUTSIDE RECORDS SUMMARY | 2022-06-01 15:29 | XMS_ITS | Encounter Summary ---
:1960 Author Organization [facility] [place] [address] Care Team Providers Name Role Phone Mikala Cortez APRN Primary Care Provider [phone] Encounter Details Date Type Department Care Team Description 06/12/[address] [facility] Cadence Peters, [place] [address] Social History Tobacco Use Types Packs/Day Years Used Date Never Assessed Sex Assigned at Date Recorded Not on file documented as of this encounter Plan of Treatment Not on filedocumented as of this encounter Visit Diagnoses Not on filedocumented in this encounter Care Teams Cad Drafter Relationship Specialty Start Date End Date Mikala Cortez APRN PCP - General 09/13/10 05/16/16 documented as of this encounter
--- OUTSIDE RECORDS SUMMARY | 2022-06-01 15:29 | XMS_ITS | Encounter Summary ---
:1960 Author Organization [facility] [place] [address] Care Team Providers Name Role Phone Mikala Cortez APRN Primary Care Provider [phone] Reason for Visit Reason Comments Nephrolithiasis Encounter Details Date Type Department Care Team Description 06/13/2011 Follow-Up Urology at [facility], DR SCHMIDT Nephrolithiasis ([facility] Arnie Woodall Jr., MD [facility] [place] [address] Dx) [place] [phone] Social History Tobacco Use Types Packs/Day Years Used Date Never Smoker Smokeless Tobacco: Never Used Sex Assigned at Date Recorded Not on file documented as of this encounter Last Filed Vital Signs Vital Sign Reading Time Taken Comments Blood Pressure 129/86 06/13/2011 3:01 PM EDT Pulse 62 06/13/2011 3:01 PM EDT Temperature - - Respiratory Rate - - Oxygen Saturation - - Inhaled Oxygen Concentration - - Weight 67.6 kg (149 lb) 06/13/2011 3:01 PM EDT Height 154.9 cm (5' 1) 06/13/2011 3:01 PM EDT Body Mass Index 28.15 06/13/2011 3:01 PM EDT documented in this encounter Patient Instructions Patient InstructionsArnie Woodall Jr., MD - 06/13/2011 3:31 PM EDT Please call if any new urologic problems arise; we will plan to see you on as needed basis documented in this encounter Progress Notes Arnie Woodall Jr., MD - 06/13/2011 3:27 PM EDT Chief Complaint: history of left nephrolithiasis History of Present Illness: Ms. Alexandre is a pleasant 51 years old woman who returns for urologic follow up regarding her left nephrolithiasis. She underwent left SWL on 01/21/2010, and a stent was also subsequently removed. She has not had any recurrence of her left sided pain. Although she had noticed passing fragments, she did not collect any for stone analysis. She had also noted chronic epigastric and right sided abdominal pain. She informs me today it was later ascribed to a narcotic dependence and withdrawal, and after beng weaned from narcotics her pains have subsided. She has not passed any additional stones, and denies any hematuria, abd/flank pain, or new LUTS. Review of systems: As above, otherwise unchanged since last visit. Past medical history: asthma, anxiety, HTN, depression, hyperlipidemia, osteoporosis, nephrolithiasis, fatty liver. Past surgical history:lap blanca, egd, left ankle fusion, left SWL Family History: Mother , had h/o CAD and DM Social History: no tobacco history Physical exam: General: She is sitting up comfortably, in no acute distress. Alert and oriented x3, pleasant and cooperative to exam, normal affect and mood. Abdomen: s/nd/nontender, no rebound or guarding. : No CVA tenderness to percussion . Bladder nondistended, nontender. Imaging Studies: I have independently reviewed the renal ultrasound from today. It reveals no residual left hydronephrosis or hydroureter. A tiny left renal cyst is note, as is a possible left renal vascualr calcification vs small nonobstructing renal calculus. Impression/Plan: History of nephrolithiasis without definite residual/recurrent stone and no evidence of residual hydronephrosis We reviewed mgmt options for followup. I offered continued monitoring with annual re-imaging to follow both the small renal cyst as well as to evaluate for stone recurrence/growth. At this time she would like to simply follow up on an as needed basis. documented in this encounter Plan of Treatment Not on filedocumented as of this encounter Visit Diagnoses Diagnosis Nephrolithiasis - Primary Calculus of kidney documented in this encounter Care Teams Tung Nut Grower Relationship Specialty Start Date End Date Mikala Cortez APRN PCP - General 09/13/10 05/16/16 documented as of this encounter
--- OUTSIDE RECORDS SUMMARY | 2022-06-01 15:29 | XMS_ITS | Encounter Summary ---
:1960 Author Organization [facility] [place] [address] Care Team Providers Name Role Phone Mikala Cortez APRN Primary Care Provider [phone] Encounter Details Date Type Department Care Team Description 06/13/2011 Hospital Encounter Ultrasound at [facility] [place] [address] Social History Tobacco Use Types Packs/Day Years Used Date Never Smoker Smokeless Tobacco: Never Used Sex Assigned at Date Recorded Not on file documented as of this encounter Medications at Time of Discharge Medication Sig Dispensed Refills Start Date End Date Mometasone (NASONEX) 50 by Nasal route as 0 mcg/Actuation [place] needed. acetaminophen (TYLENOL) Take 1,000 mg by [...] 04 :13 pm) Patient Info ID: ? [id number] ? : ??[birth year] (51 yrs) Name: ? LAURA Heller ?Visit Date: 06/13/2011 02:31 pm ? KIMBERLY Procedures URETRO - Retroperitoneal Complete - 002 [id number] ? [id number] Indications Right stone. ??Left cyst vs dilated [...] Final 06/13/2011 04:13 pm) Patient Info ID: [id number] : 60 (51 yrs ) Name: LAURA Heller Visit Date: 06/13/2011 02:31 pm KIMBERLY Procedures URETRO - Retroperitoneal Complete - [id number] Indications Right stone. Left cyst vs dilated [...] on filedocumented in this encounter Care Teams Contract Loader Relationship Specialty Start Date End Date Mikala Cortez, ASSISTANT MECHANIC PCP - General 09/13/10 05/16/16 documented as of this encounter
--- OUTSIDE RECORDS SUMMARY | 2022-06-01 15:29 | XMS_ITS | Encounter Summary ---
:1960 [place] [address] Care Team Providers Name Role Phone Marko Duffy SHARONA Primary Care Provider Encounter Details Date Type Department Care Team Description 11/21/2019 [facility] [place] [address] [place] [id number] [phone] (Wo rk) Social History Tobacco Use Types [...] Address City/State/ZIP Code Phon e Number RAD [place], [place] documented in this encounter Visit Diagnoses Not on filedocumented in this encounter Care Teams Metal Tube Cutter Relationship Specialty Start Date End Date Marko Duffy APRN PCP - General Family Medicine 07/10/19 08/22/20 [address] [place] [address] documented as of this encounter
--- OUTSIDE RECORDS SUMMARY | 2022-06-01 15:29 | XMS_ITS | Encounter Summary ---
:1960 Author Organization [facility] [place] [address] Care Team Providers Name Role Phone Marko Duffy APRN Primary Care Provider Reason for Visit Consultation (Routine) - Specialty Diagnoses / Procedures Referred By Contact Refer red To Contact Nephrology Diagnoses Disorder of kidney and ureter, unspecified Abnormal results of kidney function studies Unspecified hydronephrosis Personal history of urinary calculi KIDNEY DISEASE, ELEVATED CREATININE Marko Duffy APRN [facility] [address] [place] [id number] Referral ID Status Reason Start Date Expiration Date Visits V isits Requested Authorized [id number] Consult, Test 06/24/2019 09/23/2019 [facility] PCP Updated and/or Approved Encounter Details Date Type Department Care Team Description 08/21/2019 Office Visit Nephrology Benitez Adames Chronic kidn ey disease, unspecified CKD stage; [place] [facility] [place] Stephy Vitamin D insufficiency [facility] [place] [address] [place] [address] [phone] Social History Tobacco Use Types Packs/Day Years [...] Take 20 mg by mouth daily. ??? Enaujyx-Sgegbkppc-Keuo 333-133-5 mg Tablet Take by mouth daily. [...] as needed. ??? Mometasone (NASONEX) 50 mcg/Actuation [place] by Nasal route as needed. ??? acetaminophen [...] Signature Glucose Lvl 135 65 - 199 [facility] mg/dL [facility] Comment: Diabetes: >=200 mg/dL plus symp toms BUN 16 8 - 18 mg/dL [facility] Creatinine 1.13 0.70 - 1.20 mg/dL [facility] Sodium 142 135 - 145 mmol/L [facility] Potassium 4.0 3.5 - 5.0 mmol/L [facility] Comment: Please note: ??Patients with WBC >100,00 0 may have falsely elevated Potassium levels. ??For accurate Potassium quantif ication in these patients send serum separator tube (gold top) for subsequent determinations. ??Contact the Clinical Chemistry Laboratory if there are any qu estions. Chloride 104 98 - 107 mmol/L [facility] CO2 24 22 - 31 mmol/L [facility] Anion Gap 14 5 - 15 mmol/L [facility] Calcium 8.2 (L) 8.5 - 10.5 mg/dL [facility] Estimated GFR 53 (L) >=60 mL/min/1.73 m?? [facility] Comment: The eGFR was calculated using the CKD-EP I equation. As with all creatinine based estimates of kidney function, eGFR values calculated with the CKD-EPI equation are not accurate in patients wi th acute kidney failure, extremes of body mass or the acutely ill. http://Creactives/[facility] [place] [place] eGFR 61 >=60 mL/min/1.73 m?? [facility] Comment: The eGFR was calculated using the CKD-EP I equation. As with all creatinine based estimates of kidney function, eGFR values calculated with the CKD-EPI equation are not accurate in patients wi th acute kidney failure, extremes of body mass or the acutely ill. http://Creactives/[facility] [place] Specimen Anatomical Collection Method Collection Time Receive d Time (Source) Location / / Volume Laterality Blood specimen 04/07/2020 1:55 PM 020 2:05 (specimen) EDT PM EDT Resulting Agency Comment Spec In Lab Benitez Adames MD CHEMISTRY ORDERABLES Performing Organization Address City/State/ZIP Code Phon e Number [place] [id number] (ABNORMAL) Urine culture (08/21/2019 4:42 PM EDT) [facility]htrinity health gist Method Time Signature Urine Culture 50,000-99,000 ISS[facility] cfu/ml [facility] coli (A) [facility] Organism Escherichia ISSAC coli (A) [facility] Specimen Anatomical Collection Method [...] - GENERAL ORDER ERNIE Performing Organization Address City/[facility]/[place] [address] (ABNORMAL) Urinalysis Microscopic Exam (08/21/2019 4:42 PM EDT) P athologist Signature RBC UA 1 0 - 4 /HPF [facility] WBC UA 22 (H) 0 - 5 /HPF [facility] Bacteria UA Few (A) None /HPF [facility] Squam Epith UA 1 <=4 /HPF [facility] Specimen Anatomical Collection Method Collection Time Receive d Time (Source) Location / / Volume Laterality Urine specimen 08/21/2019 4:42 PM 019 4:42 (specimen) EDT PM EDT Resulting Agency Comment Spec In Lab Benitez Adames MD URINE ORDERABLES Performing Organization Address City/State/ZIP Code Phon e Number [address] Protein/Creatinine Ratio, urine (08/21/2019 4:42 PM EDT) P athologist Signature U Creatinine 122 mg/dL [facility] U Protein Ran 10 0 - 12 [facility] mg[facility]dL [facility] Prot/Cre Ratio <0.1 ratio [facility] Specimen Anatomical Collection Method Collection Time Receive d Time (Source) Location / / Volume Laterality Urine specimen 08/21/2019 4:42 PM 019 4:42 (specimen) EDT PM EDT Resulting Agency Comment Spec In Lab Benitez Adames MD URINE ORDERABLES Performing Organization Address City/[facility]/ZIP Code Phon e Number [address] Protein/Creatinine Ratio, urine (08/21/2019 4:42 PM EDT) P athologist Signature U Creatinine 124 mg/dL [facility] U Protein Ran 10 0 - 12 [facility] mg/dL [facility] Prot/Cre Ratio <0.1 ratio [facility] Specimen Anatomical Collection Method Collection Time Receive d Time (Source) Location / / Volume Laterality Urine specimen 08/21/2019 4:42 PM 019 4:42 (specimen) EDT PM EDT Resulting Agency Comment Spec In Lab Benitez Adames MD URINE ORDERABLES Performing Organization Address City/[facility]/ZIP Code Phon e Number [address] U Albumin/Cre Ratio (08/21/2019 4:42 PM EDT) P athologist Signature Alb/Cr Ratio, 10 0 - 29 [facility] Random mcg/mg Cr [facility] Comment: Reference Ranges: <30 mcg/mg: [...] 362 U Albumin Conc, Random 12.7 mg/L [facility] U Creatinine 124 mg/dL [facility] Specimen Anatomical Collection Method Collection Time Receive d Time (Source) Location / / Volume Laterality Urine specimen 08/21/2019 4:42 PM 019 4:42 (specimen) EDT PM EDT Resulting Agency Comment Spec In Lab Benitez Adames MD URINE ORDERABLES Performing Organization Address City/State/[place] [address] (ABNORMAL) Urinalysis with reflex Culture (08/21/2019 4:42 PM EDT) Patholo gist Method Time Signature Glucose UA Negative Negative [facility] mg/dL [facility] Protein UA Negative Negative [facility] mg/dL [facility] Bilirubin UA Negative Negative [facility] mg/dL [facility] Comment: Clinical correlation required for positi ve Urine Bilirubin results as false positive may occur with some drugs and d rug related products. If a false positive is suspected a serum total bili nguyễn should be considered if clinically indicated. Urobilinogen UA Normal Normal mg/dL [facility] pH UA 5.5 5.0 - 8.0 [facility] Blood UA Negative Negative mg/dL [facility] Ketones UA Negative Negative mg/dL [facility] Nitrite UA Negative Negative [facility] Leukocytes UA Small (A) Negative [facility]ORY Appearance UA Clear Clear [facility] Spec [place] UA 1.020 1.002 - 1.030 [facility] Color UA Yellow Yellow [facility] Culture Reflexed Yes [facility] Specimen Anatomical Collection Method Collection Time Receive d Time (Source) Location / / Volume Laterality Urine specimen 08/21/2019 4:42 PM 019 4:42 (specimen) EDT PM EDT Resulting Agency Comment Spec In Lab Benitez Adames MD URINE ORDERABLES Performing Organization Address City/State/ZIP Code Phon e Number [address] Differential, Automated (08/21/2019 4:28 PM EDT) athologist Signature Neutrophils % 61.7 % [facility] Neutr Abs (ANC) 5.58 1.70 - [facility] 6.10 [facility] x10(3)[facility] LABORATORY Lymphocytes % 24.9 % [facility] Lymphocytes Abs 2.2 0.9 - 3.2 [facility] x10(3)[facility] LABORATORY Monocytes % 9.4 % [facility] Monocyte Abs 0.8 0.3 - 0.9 [facility] x10(3)[facility] LABORATORY Eosinophils % 3.3 % [facility] Eosinophils Abs 0.3 0.0 - 0.4 [facility] x10(3)/[facility] LABORATORY Basophils % 0.4 % [facility] Basophils Abs 0.0 0.0 - 0.1 [facility] x10(3)/[facility] Immature Gran % 0.30 % [facility] Comment: Immature granulocytes(IG's)percentage an d absolute count will include metamyelocytes, myelocytes, and promyelo cytes. Blood smears from CBCs yielding IG's will be scanned manually for antonio garner. If this scan disagrees with the automated IG or if promyelocytes are not ed, a manual differential will be performed. Amarilis Gran Abs 0.03 0.00 - 0.04 x10(3)/[facility] Specimen Anatomical Collection Method Collection Time Receive d Time (Source) Location / / Volume Laterality Blood specimen 08/21/2019 4:28 PM 019 4:35 (specimen) EDT PM EDT Resulting Agency Comment Spec In Lab Benitez Adames MD HEMATOLOGY ORDERABLES Performing Organization Address City/State/[place] [address] (ABNORMAL) Hemogram (08/21/2019 4:28 PM EDT) Analysis Performed At Patho logist Time Signature WBC 9.0 4.0 - 9.5 [facility] x10(3)/[facility] LABORATORY RBC 3.86 (L) 4.00 - [facility] NASIM 5.21 [facility] x10(6)/[facility] LABORATORY Hemoglobin 11.4 (L) 11.7 - [facility] 15.5 gm/dL [facility] Hematocrit 36.6 35.7 - [facility] 45.8 % [facility] MCV 94.8 (H) 82.6 - [facility] 94.4 [facility] LABORATORY MCH 29.5 27.1 - [facility] NASIM 32.[address] [facility] MCHC 31.1 (L) 31.7 - [facility] NASIM 35.0 gm/dL [facility] Platelets 264 145 - 357 [facility] x10(3)/[facility] LABORATORY RDWSD 49.9 (H) 37.0 - [facility] NASIM 46.0 [facility] LABORATORY RDWCV 14.3 (H) 11.5 - [facility] NASIM 14.1 % [facility] MPV 10.3 7.6 - 12.9 [facility] LABORATORY nRBC % Auto 0.0 % [facility] nRBC Abs Auto 0.000 0.000 - [facility] NASIM 0.000 [facility] x10(3)/[facility]ORATORY Specimen Anatomical Collection Method Collection Time Receive d Time (Source) Location / / Volume Laterality Blood specimen 08/21/2019 4:28 PM 019 4:35 (specimen) EDT PM EDT Resulting Agency Comment Spec In Lab Benitez Adames MD HEMATOLOGY ORDERABLES Performing Organization Address City/[facility]/ZIP Code Phon e Number [address] (ABNORMAL) PTH (08/21/2019 4:28 PM EDT) athologist Signature PTH 86 (H) 15 - 65 ISS[facility] LOBONASIM pg/mL [facility] Specimen Anatomical Collection Method Collection Time Receive d Time (Source) Location / / Volume Laterality Blood specimen 08/21/2019 4:28 PM 019 4:35 (specimen) EDT PM EDT Resulting Agency Comment Spec In Lab Benitez Adames MD CHEMISTRY ORDERABLES Performing Organization Address City/[facility]/[place] [address] Vitamin D, 25-Hydroxy (08/21/2019 4:28 PM EDT) athologist Signature 25-OH Vit D 46 30 - 100 [facility] NASIM Total ng/mL [facility] Comment: As of 2019, 25-hydroxyvitamin D maribel ting has moved from the [employer] to the Edgardo Christina. No substantial change in me asured values is expected. Specimen Anatomical Collection Method Collection Time Receive d Time (Source) Location / / Volume Laterality Blood specimen 08/21/2019 4:28 PM 019 4:35 (specimen) EDT PM EDT Resulting Agency Comment Spec In Lab Benitez Adames MD CHEMISTRY ORDERABLES Performing Organization Address City/[facility]/ZIP Code Phon e Number [address] (ABNORMAL) Basic Metabolic Panel (non-fasting) (08/21/2019 4:28 PM EDT) athologist Signature Glucose Lvl 111 65 - 199 [facility] NASIM mg/dL [facility] Comment: Diabetes: >=200 mg/dL plus symp toms BUN 24 (H) 8 - 18 mg/dL [facility] Creatinine 1.28 (H) 0.70 - 1.20 mg/dL [facility] Sodium 141 135 - 145 mmol/L [facility] Potassium 3.4 (L) 3.5 - 5.0 mmol/L [facility] Comment: Please note: ??Patients with WBC >100,00 0 may have falsely elevated Potassium levels. ??For accurate Potassium quantif ication in these patients send serum separator tube (gold top) for subsequent determinations. ??Contact the Clinical Chemistry Laboratory if there are any qu estions. Chloride 99 98 - 107 mmol/L [facility] CO2 26 22 - 31 mmol/L [facility] Anion Gap 16 (H) 5 - 15 mmol/L [facility] Calcium 9.2 8.5 - 10.5 mg/dL [facility] Estimated GFR 46 (L) >=60 mL/min/1.73 m?? [facility] Comment: The eGFR was calculated using the CKD-EP I equation. As with all creatinine based estimates of kidney function, eGFR values calculated with the CKD-EPI equation are not accurate in patients wi th acute kidney failure, extremes of body mass or the acutely ill. http://Creactives/[facility] eGFR 53 (L) >=60 mL/min/1.73 m?? [facility] Comment: The eGFR was calculated using the CKD-EP I equation. As with all creatinine based estimates of kidney function, eGFR values calculated with the CKD-EPI equation are not accurate in patients wi th acute kidney failure, extremes of body mass or the acutely ill. http://Creactives/[facility] Specimen Anatomical Collection Method Collection Time Receive d Time (Source) Location / / Volume Laterality Blood specimen 08/21/2019 4:28 PM 019 4:35 (specimen) EDT PM EDT Resulting Agency Comment Spec In Lab Benitez Adames MD CHEMISTRY ORDERABLES Performing Organization Address City/State/[place] [address] documented in this encounter Visit Diagnoses Diagnosis Chronic kidney disease, unspecified CKD stage Vitamin D insufficiency Unspecified vitamin D deficiency documented in this encounter Care Teams Brand Sales Manager Relationship Specialty Start Date End Date Marko Duffy APRN PCP - General Family Medicine 07/10/19 08/22/20 [address] [place] [address] documented as of this encounter
--- OUTSIDE RECORDS SUMMARY | 2022-06-01 15:29 | XMS_ITS | Encounter Summary ---
:1960 Author Organization [facility] [place] [address] Care Team Providers Name Role Phone Unavailable Primary Care Provider Unavailable Encounter Details Date Type Department Care Team Description 10/05/2009 Ancillary Procedure Radiology Library at Destinee Bhatt APRN [facility] [address] [place] [address] [facility] [phone] [place] [address] (Work) [phone] Social History Tobacco Use Types Packs/Day Years [...] Organization Address City/State/ZIP Code Phon e Number [place], [place] documented in this encounter Visit Diagnoses Not on filedocumented in this encounter
--- OUTSIDE RECORDS SUMMARY | 2022-06-01 15:29 | XMS_ITS | Encounter Summary ---
:1960 Author Organization [facility] [place] [address] Care Team Providers Name Role Phone Stephany Molina APRN Primary Care Provider Reason for Visit Reason Comments Left Knee Pain Left Ankle Pain Consultation ([facility]LA[facility]) - Closed Specialty Diagnoses / Procedures Referred By Contact Refer red To Contact Orthopaedics Diagnoses Back pain, left ankle pain Stephany Molina APRN [facility] [address] [place] [phone] [address] [place] [address] Referral ID Status Reason Start Date Expiration Date Visits V isits Requested Authorized [id number] Closed Consult, 09/19/2016 09/19/2017 1 1 [facility] Encounter Details Date Type Department Care Team Description 09/27/2016 Office Visit Orthopaedics at [facility] Glenn Mendiola Hx of multiple trauma [facility] [place] [address] ORTHOPAEDIC SURGERY [place], [place] [address] Social History Tobacco Use Types [...] wanted to go to and I guess [facility] fairs or state fairs are a big [...] 20 of this 35-minute visit was in [id number] discussion about options of treatment, nature of [...] injury documented in this encounter Care Teams Leather Lacer Relationship Specialty Start Date End Date Stephany Molina APRN PCP - General Family Medicine 05/17/16 05/21/19 documented as of this encounter
--- OUTSIDE RECORDS SUMMARY | 2022-06-01 15:29 | XMS_ITS | Encounter Summary ---
:1960 Author Organization [facility] [place] [address] Care Team Providers Name Role Phone Mikala Cortez APRN Primary Care Provider [phone] Reason for Visit Reason Onset Date Comments GI Problem 01/27/2011 Encounter Details Date Type Department Care Team Description 01/27/2011 Telephone Gastroenterology at [facility] Lambert Humphrey APRN GI Problem [facility] Zach davidson [facility] [place] [address] GASTROENTEROLOGY [phone] DEPT. [place], [place] [address] (Wo rk) Social History Tobacco [...] on filedocumented in this encounter Care Teams Bit Grinder Relationship Specialty Start Date End Date Mikala Cortez APRN PCP - General 09/13/10 05/16/16 documented as of this encounter
--- OUTSIDE RECORDS SUMMARY | 2022-06-01 15:29 | XMS_ITS | Encounter Summary ---
:1960 Author Organization [place] [address] Care Team Providers Name Role Phone Marko Duffy SHARONA Primary Care Provider Encounter Details Date Type Department Care Team Description 11/25/2019 Office Visit Nephrology Benitez Adames CKD (chronic kidney disease) stage 3, GFR 30-59 ml/min; Hypertension at [facility] Stpehy Hypertensive kidney disease with CKD sta ge III [facility] [place] [address] [place] [address] [phone] Social History Tobacco Use Types Packs/Day Years [...] Sign Reading Time Taken Comments Blood Pressure 144/72 11/25/2019 12:15 PM EST Pulse 70 11/25/2019 12:15 PM EST Temperature - - Respiratory Rate - - Oxygen Saturation 99% 11/25/2019 12:15 PM EST Inhaled Oxygen Concentration - - Weight 87.5 kg (193 lb) 11/25/2019 12:15 PM EST Height 154.9 cm (5' 0.98) 11/25/2019 12:15 PM EST Body Mass Index 36.49 11/25/2019 12:15 PM EST documented in this encounter Progress Notes Benitez Adames MD - 11/25/2019 1:00 PM EST PATIENT: Lena Alexandre : 1960 Interval history: Patient reports overall doing well. She has recently stopped hydrochlorothiazide due to low potassium. She is taking potassium supplement. She has a recent diagnosis of osteoporosis and inquires about bisphosphonate use. Assessment/Plan: #Chronic Kidney disease Stage likely stage IIIb: CR 1.33mg/dl -> eGFR 40ml/min per external labs on 11/19. Relatively stable past 6 mos. No significant proteinuria per spot. Known history of nehrolithiasis. History of significant NSAID use. External renal ultrasound from October 2019 reported as normal Plan: Continue to encourage good p.o. intake. We will continue to monitor No apparent renal indication for RAAS inhibition. ? #Hemodynamics Blood Pressure: 144/72 etc. Encourage patient to begin home blood pressure monitoring so we may better understand her trend. Depending on these readings may have to consider additional antihypertensives Antihypertensives atenolol 100 mg. Currently holding hydrochlorothiazide due to hypokalemia. Volume Status:Patient appears euvolemic Prevalent CVD: No prevalent cardiovascular disease known. Patient is on beta- zhanna and atorvastatin #Hemoglobin Hemoglobin 11.4 g/dL not consistent with significant anemia Goal Hgb 10-12g/dl, Ferritin>100ng/ml, TSAT>20% ?? #Acid/Base status Check Bicarb Would Add NaHCO3 [...] 2.7-4.6 ??Ca 8.5-10.5mg/dl Renal Clinic Follow-Up Plan: 4 mos Past Medical History: Diagnosis Date ??? Anxiety [...] Disease Mother ??? Diabetes Mother Social History Patient does not qualify to have social determinant information on file (likely too young). Social History Narrative Not on file Outpatient medications: Current Outpatient Medications on File Prior to Visit Medication Sig Dispense Refill ??? colesevelam (WELCHOL) 625 mg Tablet Take 1,875 mg by mouth daily. ??? potassium chloride ER (K-Dur/Klor-Con) 20 mEq Tab Sust.Rel. Particle/Crystal Take 20 mEq by mouth 2 times daily. ??? cetirizine (ZYRTEC) 10 mg Tablet Take 10 mg by mouth daily. ??? atorvastatin (LIPITOR) 20 mg Tablet Take 20 mg by mouth daily. ??? Taqzxtu-Nbyfdygkw-Jqdj 333-133-5 mg Tablet Take by mouth daily. ??? [DISCONTINUED] aspirin-caffeine (BACK AND BODY PAIN RELIEVER) 500-32.5 mg Tablet Take 1 tablet by mouth daily. ??? atenolol (TENORMIN) 100 mg Tablet Take 100 mg by mouth daily. ??? NEXIUM 40 mg Capsule, Delayed Release(E.C.) Take 40 mg by mouth daily. ??? prochlorperazine (COMPAZINE) 10 mg Tablet every 8 hours as needed. ??? Mometasone (NASONEX) 50 mcg/Actuation [place] by Nasal route as needed. ??? acetaminophen [...] (XOPENEX HFA) 45 mcg/Actuation inhaler ??? [DISCONTINUED] hydroCHLOROthiazide (HYDRODIURIL) 25 mg Tablet Take 25 mg by mouth daily. ??? [DISCONTINUED] tiZANidine (ZANAFLEX) 2 mg Tablet every 8 [...] weakness. No numbness/ tingling in extremities. MSK- Knee pain PHYSICAL EXAM: Last value Temperature Heart Rate Heart Rate: 70 Blood Pressure BP: 144/72 Respiratory Rate SpO2 SpO2: 99 % Appearance - Alert, Comfortable. Skin - [...] Benitez Adames MD, MPH Section of Nephrology #[id number] documented in this encounter Plan of Treatment Scheduled Orders Name Type Priority Associated Diagnoses Order S chedule Basic Metabolic Panel Lab Routine CKD (chronic kidney Expected: 02/23/2020, (non-fasting) disease) stage 3, GFR Expir es: 11/24/2020 30-59 ml/min documented as of this encounter Visit Diagnoses Diagnosis CKD (chronic kidney disease) stage 3, GF R 30-59 ml/min Chronic kidney disease, Stage III (moder ate) Hypertensive kidney disease with CKD sta ge III Unspecified hypertensive kidney disease with chronic kidney disease stage I through stage IV, or unspecified documented in this encounter Care Teams Semiautomatic Stitcher Operator Relationship Specialty Start Date End Date Marko Duffy APRN PCP - General Family Medicine 07/10/19 08/22/20 [address] [place] [address] documented as of this encounter
--- OUTSIDE RECORDS SUMMARY | 2022-06-01 15:29 | XMS_ITS | Encounter Summary ---
:1960 [place] [address] Care Team Providers Name Role Phone Mikala Cortez APRN Primary Care Provider [phone] Encounter Details Date Type Department Care Team Description 08/03/2010 Orders Only Lab [facility] Lambert watson [facility] Zach davidson GASTROENTEROLOG[place] [address] [place] [address] [phone] (Wo rk) Social History Tobacco Use Types [...] 3:04 (specimen) EDT PM EDT Tracia O'Faby NURSE ASSISTANT CHEMISTRY ORDERABLES Performing Organization Address City/[facility]/ZIP Code Phon e Number [address] [facility] (08/03/2010 2:58 PM EDT) athologist Signature Folate Lvl >20.0 7.4 - 35.0 CERNER ng/mL [facility] Specimen Anatomical Collection Method Collection Time Receive d Time (Source) Location / / Volume Laterality Blood specimen 08/03/2010 2:58 PM 010 3:04 (specimen) EDT PM EDT Tracia O'Faby NURSE ASSISTANT CHEMISTRY ORDERABLES Performing Organization Address City/[facility]/ZIP Code Phon e Number [address] [facility] VITAMIN B12 (08/03/2010 2:58 PM EDT) athologist Signature Vitamin B-12 591 207 - 974 CERNER pg/mL [facility] Specimen Anatomical Collection Method Collection Time Receive d Time (Source) Location / / Volume Laterality Blood specimen 08/03/2010 2:58 PM 010 3:04 (specimen) EDT PM EDT Tracia O'Faby NURSE ASSISTANT CHEMISTRY ORDERABLES Performing Organization Address City/[facility] [place] [address] [facility] MILLEN[facility]UM (ABNORMAL) COMPREHENSIVE METABOLIC PANEL (NON-FASTING) (08/03/2010 [...] Calcium 9.5 8.5 - 10.5 mg/dL CERNER TERRA [facility] Total Protein 7.5 6.4 - 8.3 [...] Organization Address City/State/ZIP Code Phon e Number [place] [phone] CERNER [facility]ILLEN[facility] REFLEX LAB-A-DIFF [...] Organization Address City/State/[place] [address] CERNER MILLENNIUM (ABNORMAL) CBC [...] Organization Address City/State/ZIP Code Phon e Number [place] [phone] [facility] documented in this encounter Visit Diagnoses Not on filedocumented in this encounter Care Teams Product Development Assistant Relationship Specialty Start Date End Date Mikala Cortez APRN PCP - General 09/13/10 05/16/16 documented as of this encounter
--- OUTSIDE RECORDS SUMMARY | 2022-06-01 15:29 | XMS_ITS | Encounter Summary ---
:1960 Author Organization [place] [address] Care Team Providers Name Role Phone Stephany Molina APRN Primary Care Provider Encounter Details Date Type Department Care Team Description 09/27/2016 Orders Only Orthopaedics at [facility] Glenn Mendiola Right knee pain, [facility] MD Torsten unspecified Drive [facility] [place] [address] ORTHOPAEDIC SURGERY [place] [address] Social History Tobacco Use Types Packs/Day Years [...] XR Knee Standing Alignment AP Lat [place] Right (09/27/2016 4:17 PM EST) Anatomical Region [...] chronicity documented in this encounter Care Teams Dental Chairside Assistant Relationship Specialty Start Date End Date Stephany Molina, SHARONA PCP - General Family Medicine 05/17/16 05/21/19 documented as of this encounter
--- OUTSIDE RECORDS SUMMARY | 2022-06-01 15:29 | XMS_ITS | Encounter Summary ---
:1960 Author Organization [facility] [place] [place] [address] Care Team Providers Name Role Phone Stephany Molina APRN Primary Care Provider Encounter Details Date Type Department Care Team Description 07/21/2016 Hospital Encounter Radiology Library at Kassy Rubio MD Pain [facility] [place] [address] [place] [address] [phone] (Wo rk) Social History Tobacco Use Types [...] 50 by Nasal route as 0 mcg/Actuation [place] needed. acetaminophen (TYLENOL) 500 Take 1,000 mg [...] 50 1 spray daily. 0 08/03/2016 mcg/actuation [place], Suspension melatonin 3 mg Tablet Take by [...] Organization Address City/State/ZIP Code Phon e Number [place], [place] documented in this encounter Visit Diagnoses Diagnosis Pain Generalized pain documented in this encounter Care Teams Concrete Stone Fabricator Relationship Specialty Start Date End Date Stephany Molina APRN PCP - General Family Medicine 05/17/16 05/21/19 documented as of this encounter
--- OUTSIDE RECORDS SUMMARY | 2022-06-01 15:29 | XMS_ITS | Encounter Summary ---
:1960 Author Organization [facility] [place] [address] Care Team Providers Name Role Phone Stephany Allen APRN Primary Care Provider Reason for Visit Reason Comments Pain Management Back Pain Knee Pain right Ankle Pain left Consultation (Routine) - Closed Specialty Diagnoses / Procedures Referred By Contact Refer red To Contact Pain Management Diagnoses ankle pain, back pain Stephany Allen APRN [facility] Pain Management Procedures ankle pain, back pain [facility] 3d CORRECTIONAL FACILIT Y [facility] [address] [place] [address] [place] [address] Fax: Referral ID Status Reason Start Date Expiration Date Visits Requ ested Visits Authorized [id number] Closed 07/21/2016 07/21/2017 1 1 Encounter Details Date Type Department Care Team Description 08/03/2016 Office Visit Pain Management at Shu Juárez 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 Rubio on 07/20/16 in the [facility] for back pain. She has [...] times daily. Yes Mometasone (NASONEX) 50 mcg/Actuation [place] by Nasal route. Yes acetaminophen (TYLENOL) 500 [...] answered to her satisfaction. Shu Juárez, MSN, COMMERCIAL LINES ACCOUNT EXECUTIVE-BC, CONCRETE BUCKET UNLOADER Nurse Practitioner [facility] documented in this encounter Plan of Treatment Not on filedocumented as of this encounter Visit Diagnoses Diagnosis Spondylosis of lumbar region without mye lopathy or radiculopathy Lumbosacral spondylosis without myelopat hy Facet arthropathy, lumbar Lumbosacral spondylosis without myelopat hy documented in this encounter Care Teams Tie Buyer Relationship Specialty Start Date End Date Stephany Allen APRN PCP - General Family Medicine 05/17/16 05/21/19 documented as of this encounter
--- OUTSIDE RECORDS SUMMARY | 2022-06-01 15:29 | XMS_ITS | Encounter Summary ---
:1960 Author Organization [facility] [place] [address] Care Team Providers Name Role Phone Unavailable Primary Care Provider Unavailable Encounter Details Date Type Department Care Team Description 10/12/2009 Ancillary Procedure Radiology Library at Destinee Bhatt APRN [facility] [address] [place] [address] [place] [phone] [place] [address] (Work) [phone] Social History Tobacco Use Types Packs/Day Years Used Date Never Assessed Sex Assigned at Date Recorded Not on file documented as of this encounter Plan of Treatment Not on filedocumented as of this encounter Procedures Procedure Name Priority Date/Time Associated Diagnosis Comme nts FILM LIBRARY Routine 10/12/2009 12:00 AM Results for this STORAGE ONLY MAMMO EST procedure are in the results section. documented in this encounter Results Film Library- Storage Only Mammo (10/12/2009 12:00 AM EST) Specimen (Source) Anatomical Location Collection Method / Collectio n Time Received Time / Laterality Volume Narrative TROY - 02/27/2022 3:17 PM EDT This exam is auto-finalizing. It's purpo se is for storage only. Destinee Bhatt APRN IMG FILM LIBRARY ORDERABLES Performing Organization Address City/State/ZIP Code Phon e Number [place], [place] documented in this encounter Visit Diagnoses Not on filedocumented in this encounter
--- OUTSIDE RECORDS SUMMARY | 2022-06-01 15:31 | XMS_ITS | Encounter Summary ---
:1960 Author Organization [facility] Address [address] [place] [address] Care Team Providers Name Role Phone Dale Gomez MD Primary Care Provider Encounter Details Date Type Department Care Team Description 05/08/2007 Results Only [facility] - Brittanie Kirkpatrick NP conversion [address] [facility] [address] [place] [phone] (Wo rk) Social History Tobacco Use Types [...] ? LAURA HARRIS ? Accession #: ? [id number] : ? 1960 (Age: 47) ??F ?Collect Date: ? 04/21 Location: ? [facility] ? Receive Date : ? 05/10/2007 Provider: ?BRITTANIE JUDD METALLURGY TEACHER Copy to: ? Specimen/Source: ? ThinPrep Pap Test, Cervix/Endocervix, processed on [email or web address] ThinPrep Imaging System, with manual evaluation Last [...] Organization Address City/State/ZIP Code Phon e Number [facility] [address] [place] [address] SERVICES [facility] [address] [place] [address] documented in this encounter Visit Diagnoses Not on filedocumented in this encounter Care Teams Insurance Checker Relationship Specialty Start Date End Date Dale Gomez MD PCP - General 12/06/[address] [place] [phone] documented as of this encounter
--- OUTSIDE RECORDS SUMMARY | 2022-06-01 15:31 | XMS_ITS | Encounter Summary ---
:1960 Author Organization [facility] Address [address] [place] [address] Care Team Providers Name Role Phone Dale Gomez MD Primary Care Provider Encounter Details Date Type Department Care Team Description 11/19/2019 Lab Requisition [facility] Unknown, Provider, Pathology & Laboratory [facility] [address] [place] [address] [place], [place] [id number] Social History Tobacco Use Types Packs/Day Years [...] PTH 116 (H) 19 - 88 pg/mL [facility] SERVICES Specimen Blood - Venous blood (substance) Performing Organization Address City/State/ZIP Code Phon e Number [facility] [address] [place] [address] SERVICES CELIAC DISEASE PANEL (11/19/2019 11:38 EST) Tissue <1.2 <4.0 U/mL [facility] Transglutaminase Comment: CENTER Antibody [facility] LABORATORY A negative result may be due to IgA deficiency and does not rule out celiac disease. SERVICES ? Negative: ??<4.0 U/mL ? Weak Positive: ??4.0 - 10.0 U/mL ? Positive: ??>10.0 U/mL Results were obtained with keanu robins [employer] QUANTA Lite R h-tTG IgA DENNYS assay on the [employer] DSX. IgA 108 85 - 499 [facility] mg/dL [facility] SERVICES Celiac Disease [facility] Interpretation Negative Serology. Celiac di sease [...] Organization Address City/State/ZIP Code Phon e Number [facility] [address] [place] [address] SERVICES documented in this encounter Visit Diagnoses Not on filedocumented in this encounter Care Teams Whipper Beater Relationship Specialty Start Date End Date Dale Gomez MD PCP - General 12/06/[address] [place] [phone] documented as of this encounter
--- OUTSIDE RECORDS SUMMARY | 2022-06-01 15:31 | XMS_ITS | Encounter Summary ---
:[address] [facility] Address [address] [place] [address] Care Team Providers Name Role Phone Dale Gomez MD Primary Care Provider Encounter Details Date Type Department Care Team Description 11/11/2003 Results Only [facility] - Dale Corcoran MD conversion [address] [place] [phone] Social History Tobacco Use Types Packs/Day Years [...] MELISSA HARRIS N ? Accession #: ? [id number] ? : ? 1960 (Age: 43) ??F ? Collect Date: ? 11/11/2003 ? Location: ? [facility] ? Receive Date: ? 004 ? Provider: RENE CHENG MD Copy to: JAMES MOODY CREATIVE RECRUITER ? Final Pathologic Diagnosis: ? Gastroesophageal junction, biopsy: 1. ?Hyperplasti c gastroesophageal junction-type mucosa with mild chronic inflammation. 2. ?Negative for Helicobacter pylori-like microorganisms on H&E staining. Comment: ? The histologic features are luiz tible with mild reflux changes. ??(Dr. Sue)/[facility] Document reviewed and electronically signed by: [...] is entirely submitted in one cassette. ??(Rebeka Barcenas)/[facility] End of Report Specimen Performing Organization Address City/State/ZIP Code Phon e Number [facility] [address] [place] [address] SERVICES [facility] [address] [place] [address] documented in this encounter Visit Diagnoses Not on filedocumented in this encounter Care Teams Psychiatric Assistant Relationship Specialty Start Date End Date Dale Gomez MD PCP - General 12/06/[address] [place] [phone] documented as of this encounter
--- OUTSIDE RECORDS SUMMARY | 2022-06-01 15:31 | XMS_ITS | Encounter Summary ---
:1960 Author Organization [facility] Address [address] [place] [address] Care Team Providers Name Role Phone Dale Gomez MD Primary Care Provider Encounter Details Date Type Department Care Team Description 03/13/2019 Results Only [facility]- Cat Braga, DNP [phone] [address] [place] [address] (Wo rk) Social History Tobacco Use Types Packs/Day Years Used Date Never Assessed Sex Assigned at Date Recorded Not on file documented as of this encounter Plan of Treatment Not on filedocumented as of this encounter Procedures Procedure Name Priority Date/Time Associated Diagnosis Comme [facility] SURGICAL PATHOLOGY Routine 03/13/2019 15:38 Resul ts for this EDT procedure are i n the results section. documented in this encounter Results SURGICAL PATHOLOGY (03/13/2019 15:38 EDT) Pathology Report: SURGICAL PATHOLOGY REPORT [facility] Reports generated via electronic interface contain katelyn ginal data; LABORATORY however they are lacking the format of the original re port. SERVICES Caution should be taken when reading/interpreting unfo rmatted reports. Name: ? MELISSA HARRIS N ? Accession #: ? [id number] ? : ? 1960 (Age: [age]) ??F ? Collect Date: ? 03/13/2019 ? Location: ? [facility] ? Receive Date: ? 03/14/20 19 ? Provider: CAT MARTINEZ DNP Copy to: DIANNA ALLEN COVERAGE SPECIALIST RN ? Final Pathologic Diagnosis: A. ??SKIN OF ARM, LEFT, PUNCH BIOPSY: - Lichenoid/interface dermatitis. ??See microscopic an d comment. B. ??SKIN OF LEG, LEFT, SHAVE BIOPSY: - Lichenoid/interface dermatitis. ??See microscopic an d comment. Comment: The histologic findings are nonspecific and show a lic henoid/interface dermatitis. ??The differenti al diagnosis would include a lichenoid drug eruption, lichen planus or connective tissue disease. ??The degr ee of inflammation and epidermal changes are not th at classic for lichen planus. ??There is no evidence of deep inflammation surroun ding blood vessels or adnexal structures to favor a connective tissue disorder t celestino clinical correlation should be made. ??A rare eosinophils is seen, favorin g a lichenoid drug eruption. ??Clinical correlation is recommended. ??(Dr. Mahoney)/[facility] Microscopic Description: The shave biopsies from the left arm and left leg show similar findings. ??Both biopsies show a patchy distr ibution of vacuolated keratinocytes with lymphocytic exocytosis and scattered apoptotic bodies along the ju nction. ??The stratum corneum shows basketweave orthokeratosis. ??Infl ammation is patchy within the dermis and situated predominantly around superficial v essels and within the surrounding interstitium. ??The inflammation is compos ed predominantly of mature-appearing lymphocytes . ??A rare eosinophil is seen. ??Multiple levels are examined of parts A and B and show similar findings. ? ?(Dr. Mahoney)/[facility] Document reviewed and electronically signed by: MESSI MAHONEY MD Report ??Date: 03/18/2019 15:00 By the signature above, the attending physician certif ies that he/she has personally conducted a gross and/or microscopic examin ation of the described specimens and rendered or confirmed the above diagnosi s. Specimen(s) Received: A. ??Left arm punch biopsy (#1) B. ??Left leg shave biopsy (#2) Clinical History: Rash, skin; clinical diagnosis code: R21 Gross Description: A. ?Received in formalin labelled with proper p atient identification (initials L, K) and left arm is a punch biopsy of wh ite skin (0.3 cm in diameter x 0.1 cm in thickness). The specimen is submi tted intact in A1. B. ?Received in formalin labelled with proper p atient identification (initials L, K) and left le g is a shave biopsy of pearly white skin (0.3 x 0.2 x 0.1 cm). The specimen is inked and submitted in B1. RIVAS Jason (ASCP) 03/14/2019 4:11 PM End of Report Specimen Performing Organization Address City/State/ZIP Code Phon e Number [facility] [address] [place] [address] SERVICES documented in this encounter Visit Diagnoses Not on filedocumented in this encounter Care Teams Territory Supervisor Relationship Specialty Start Date End Date Dale Gomez MD PCP - General 12/06/[address] [place] [phone] documented as of this encounter
--- OUTSIDE RECORDS SUMMARY | 2022-06-01 15:31 | XMS_ITS | Encounter Summary ---
:1960 Author Organization [facility] Address [address] [place] [address] Care Team Providers Name Role Phone Dale Gomez MD Primary Care Provider Encounter Details Date Type Department Care Team Description 06/01/2021 Lab Requisition [facility] Destinee Bhatt Encoun ter for general adult medical examination without abnormal findings; Pathology & TELESALES CONSULTANT Encounter for screening for malignant ne oplasm of cervix; Laboratory Medicine [address] for gynecological examination (general) (routine) without abnormal findings - [address] [phone] Social History Tobacco Use Types Packs/Day Years [...] 12:30 EDT) Human Papillomavirus NegativeComment: No Negative [facility] MEDICAL (HPV) Detection-High E6 or E7 mRNA is CENTER LABORATOR Y Types detected from HPV SERVICES types 16,18,31,33,35,39,45 ,51,52,56,58,59,66, and 68 by pcas mediated amplification. Specimen Pap Test - Cervix and/or Endocervix Performing Organization Address City/[facility] Phon e Number [facility] [address] [place] [address] SERVICES PAP TEST (05/31/2021 12:30 EDT) Specimens A. Cervix and/or [facility] MEDICAL Endocervix , ThinPrep CENTER Imaging System with LABORATORY Manual Evaluation SERVICES Specimen Adequacy Satisfactory for [facility] MEDICAL Evaluation - CENTER transformation zone LABORATORY component present SERVICES General Negative for [facility] Categorization intraepithelial CENTER lesion or malignancy LABORATORY SERVICES Attestation . [facility] Electronically CENTER signed by BHAKTI Hunter CT(ASC P) SERVICES on 06/13/2021 at 1202 Clinical [address] See below [facility] SERVICES HPV The result for the Human Pap illomavirus (HPV) Detection-High Risk Types is Negative. No E6 or E7 mRNA is detected from HPV types 16,18,31,33,35,39,45,51,52,56,58,59,66, and 68 by pcas mediated [facility] MEDICAL amplification.Testing was pe rformed on specimen [id number] and was resulted on 06/13/2021 1158 EDT by EDWIGE, LAB INSTRUMENT RESULTS IN [facility] SERVICES Performing Lab [facility] LAB [facility] SERVICES Scanned Images [facility] SERVICES Specimen Pap Test - Cervix and/or Endocervix Performing Organization Address City/[facility] Phon e Number [facility] [address] [place] [address] SERVICES documented in this encounter Visit Diagnoses Diagnosis Encounter for general adult medical exam ination without abnormal findings Unspecified general medical examination Encounter for screening for malignant ne oplasm of cervix Screening for malignant neoplasm of the cervix Encounter for gynecological examination (general) (routine) without abnormal findings documented in this encounter Care Teams Founder Chairman And Chief Creative Officer Relationship Specialty Start Date End Date Dale Gomez MD PCP - General 12/06/[address] [place] [phone] documented as of this encounter
--- OUTSIDE RECORDS SUMMARY | 2022-06-01 15:31 | XMS_ITS | Encounter Summary ---
:1960 Author Organization [facility] Address [address] [place] [address] Care Team Providers Name Role Phone Dale Gomez MD Primary Care Provider Encounter Details Date Type Department Care Team Description 12/03/2001 Results Only [facility] - Brittanie Kirkpatrick NP conversion [address] [facility] 1 [address] [place] [phone] (Wo rk) Social History Tobacco Use Types [...] ? LAURA HARRIS ? Accession #: ? [id number] : ? 1960 (Age: 41) ??F ?Collect Date: ? 11/22 Location: ? [facility] ? Receive Date : ? 12/06/2001 Provider: ?BRITTANIE JUDD RESEARCH NUTRITIONIST Copy to: ? Specimen/Source: ?ThinPrep Pap Test, [...] Organization Address City/State/ZIP Code Phon e Number [facility] [address] [place] [address] SERVICES [facility] [address] [place] [address] documented in this encounter Visit Diagnoses Not on filedocumented in this encounter Care Teams Assignment Desk Editor Relationship Specialty Start Date End Date Dale Gomez MD PCP - General 12/06/[address] [place] [phone] documented as of this encounter
--- OUTSIDE RECORDS SUMMARY | 2022-06-01 15:31 | XMS_ITS | Encounter Summary ---
:1960 Author Organization [facility] Address [address] [place] [address] Care Team Providers Name Role Phone Unavailable Primary Care Provider Unavailable Encounter Details Date Type Department Care Team Description 06/23/2008 Before [facility] - James Cortez, Converted Visit Maple conversion HOME ENERGY INSPECTOR (Maple) [address] [facility] [address] [place] [address] [place], [place] [phone] (Wo rk) Social History Tobacco Use Types [...] ? MELISSA HARRIS ? Accession #: ? [id number] ? : ? 1960 (Age: 48) ??F [...] Organization Address City/State/ZIP Code Phon e Number [facility] [address] [place] [address] SERVICES [facility] [address] [place] [address] documented in this encounter Visit Diagnoses Not on filedocumented in this encounter
--- OUTSIDE RECORDS SUMMARY | 2022-06-01 15:31 | XMS_ITS | Encounter Summary ---
:1960 Author Organization [facility] Address [address] [place] [address] Care Team Providers Name Role Phone Dale Gomez MD Primary Care Provider Encounter Details Date Type Department Care Team Description 12/30/2004 Results Only [facility] - James Inman, BUILDING RENTAL MANAGER conversion [address] [phone] (Wo rk) Social History Tobacco Use Types [...] ? LAURA HARRIS ? Accession #: ? [id number] : ? 1960 (Age: 44) ??F ?Collect Date: ? 12/20 Location: ? [facility] ? Receive Date : ? 01/03/2005 Provider: ?JAMES MOODY BUILDING RENTAL MANAGER Copy to: ? Specimen/Source: ?ThinPrep Pap Test, [...] Organization Address City/State/ZIP Code Phon e Number [facility] [address] [place] [address] SERVICES [facility] [address] [place] [address] documented in this encounter Visit Diagnoses Not on filedocumented in this encounter Care Teams Production Internship Relationship Specialty Start Date End Date Dale Gomez MD PCP - General 12/06/[address] [place] [phone] documented as of this encounter
--- OUTSIDE RECORDS SUMMARY | 2022-06-01 15:31 | XMS_ITS | Encounter Summary ---
:1960 Author Organization [facility] Address [address] [place] [address] Care Team Providers Name Role Phone Dale Gomez MD Primary Care Provider Encounter Details Date Type Department Care Team Description 12/29/2003 Results Only [facility] - James Inman, MANUFACTURED BUILDINGS REPAIRER conversion [address] [phone] (Wo rk) Social History Tobacco Use Types [...] ? LAURA HARRIS ? Accession #: ? [id number] : ? 1960 (Age: 43) ??F ?Collect Date: ? 0306/2004 Location: ? [facility] ? Receive Date : ? 12/31/2003 Provider: ?JAMES MOODY MANUFACTURED BUILDINGS REPAIRER Copy to: ? Specimen/Source: ?ThinPrep Pap Test, [...] Organization Address City/State/ZIP Code Phon e Number [facility] [address] [place] [address] SERVICES [facility] [address] [place] [address] documented in this encounter Visit Diagnoses Not on filedocumented in this encounter Care Teams Vocational Rehabilitation Supervisor Relationship Specialty Start Date End Date Dale Gomez MD PCP - General 12/06/[address] [place] [phone] documented as of this encounter
--- OUTSIDE RECORDS SUMMARY | 2022-06-01 15:31 | XMS_ITS | Clinical Summary ---
:1960 Author Organization [facility] Address [address] [place] [address] Care Team Providers Name Role Phone Dale Gomez MD Primary Care Provider Social History Tobacco Use Types Packs/Day Years Used Date Never Assessed Sex Assigned at Date Recorded Not on file Plan of Treatment Health Maintenance Due Date Last Done Comments COVID-19 Vaccine (1) 1972 Care Teams Account Services Associate Relationship Specialty Start Date End Date Dale Gomez MD PCP - General 12/06/[address] [place] [phone]
--- OUTSIDE RECORDS SUMMARY | 2022-06-01 15:31 | XMS_ITS | Encounter Summary ---
:1960 Author Organization [facility] Address [address] [place] [address] Care Team Providers Name Role Phone Dale Gomez MD Primary Care Provider Encounter Details Date Type Department Care Team Description 12/24/2002 Results Only [facility] - Brittanie Kirkpatrick NP conversion [address] [facility] 1 [address] [place] [phone] (Wo rk) Social History Tobacco Use Types Packs/Day Years Used Date Never Assessed Sex Assigned at Date Recorded Not on file documented as of this encounter Plan of Treatment Not on filedocumented as of this encounter Procedures Procedure Name Priority Date/Time Associated Diagnosis Comme [facility] CYTOPATHOLOGY Routine 12/24/2002 0:00 EST Results for [...] ? LAURA HARRIS ? Accession #: ? [id number] : ? 1960 (Age: 42) ??F ?Collect Date: ? 02/2003 Location: ? [facility] ? Receive Date : ? 12/26/2002 Provider: ?BRITTANIE JUDD INDUCTION HEATING EQUIPMENT SETTER Copy to: ? Specimen/Source: ?ThinPrep Pap Test, [...] Organization Address City/State/ZIP Code Phon e Number [facility] [address] [place] [address] SERVICES [facility] [address] [place] [address] documented in this encounter Visit Diagnoses Not on filedocumented in this encounter Care Teams Quarantine Officer Relationship Specialty Start Date End Date Dale Gomez MD PCP - General 12/06/[address] [place] [phone] documented as of this encounter
--- OUTSIDE RECORDS SUMMARY | 2022-06-01 15:31 | XMS_ITS | Encounter Summary ---
:1960 Author Organization [facility] Address [address] [place] [address] Care Team Providers Name Role Phone Dale Gomez MD Primary Care Provider Encounter Details Date Type Department Care Team Description 06/12/2016 Results Only [facility]- Stephany Mazariegos, RN HOME HEALTH [phone] [address] [place] [address] (Wo rk) Social History Tobacco [...] (06/12/2016 0:00 EDT) Pathology Report: CYTOPATHOLOGY REPORT [facility] Reports generated via electronic interface contain katelyn ginal data; SERVICES however they are lacking the format of the original re port. Caution should be taken when reading/interpreting unfo rmatted reports. Name: ? MELISSA HARRIS N ? Accession #: ? [id number] ? : ? 1960 (Age: [age]) ??F ?Collect Date: ? 06/12/2016 ? Location: ? [facility] ? Receive Date: ? 06/13/20 16 ? Provider: STEPHANY ALLEN RN HOME HEALTH Copy to: ? Final Report SPECIMEN ADEQUACY [...] types 16,18,31,3 3,35, 39,45,51,52,56,58,59,66, and 68 by patent paralegal media sangeetha amplification. Comments Document reviewed and [...] e Number [facility] [address] [place] [address] SERVICES documented in this encounter Visit Diagnoses Not on filedocumented in this encounter Care Teams Bricklayer Tender Relationship Specialty Start Date End Date Dale Gomez MD PCP - General 12/06/[address] [place] [phone] documented as of this encounter
--- OUTSIDE RECORDS SUMMARY | 2022-06-01 15:31 | XMS_ITS | Encounter Summary ---
:1960 Author Organization [facility] Address [address] [place] [address] Care Team Providers Name Role Phone Dale Gomez MD Primary Care Provider Encounter Details Date Type Department Care Team Description 07/11/2010 Results Only [facility] Nupur Cortez NP Laboratory Services - [address] [place] [address] [place] [phone] [place] [address] [phone] Social History Tobacco Use Types Packs/Day Years Used Date Never Assessed Sex Assigned at Date Recorded Not on file documented as of this encounter Plan of Treatment Not on filedocumented as of this encounter Procedures Procedure Name Priority Date/Time Associated Diagnosis Comme nts CYTOPATHOLOGY Routine 07/11/2010 0:00 EDT Results for this procedure are [...] ? MELISSA HARRIS ? Accession #: ? [id number] ? : ? 1960 (Age: 50) ??F [...] of Report ? Specimen Performing Organization Address City/[facility] Code Phon e Number [facility] [address] [place] [address] SERVICES [facility] [address] [place] [address] documented in this encounter Visit Diagnoses Not on filedocumented in this encounter Care Teams Payroll Accounting Specialist Relationship Specialty Start Date End Date Dale Gomez MD PCP - General 12/06/[address] [place] [phone] documented as of this encounter
--- OUTSIDE RECORDS SUMMARY | 2022-06-01 15:31 | XMS_ITS | Encounter Summary ---
:1960 Author Organization [facility] Address [address] [place] [address] Care Team Providers Name Role Phone Dale Gomez MD Primary Care Provider Encounter Details Date Type Department Care Team Description 12/22/2009 Results Only [facility] Mark Hurst MD Laboratory Services - [phone] [place] [address] [place] [address] [phone] Social History Tobacco Use Types Packs/Day Years Used Date Never Assessed Sex Assigned at Date Recorded Not on file documented as of this encounter Plan of Treatment Not on filedocumented as of this encounter Procedures Procedure Name Priority Date/Time Associated Diagnosis Comme [facility] SURGICAL PATHOLOGY Routine 12/22/2009 0:00 EST Re sults for this procedure are i n the results section. documented in this encounter Results SURGICAL PATHOLOGY (12/22/2009 0:00 EST) Pathology Report: SURGICAL PATHOLOGY REPORT ? [facility] Reports generated via electr RightsFlow interface contain original data; ? LAB however they are lacking the format of the original report. ? Caution should be taken when reading/interpreting unformatted reports. ? Name: ? HARRIS, KATHLEE N ? Accession #: ? [id number] ? : ? 1960 (Age: 49) ??F ? Collec t Date: ? 12/22/2009 ? Location: ? [facility] ? R eceive Date: ? 12/23/2009 ? Provider: EILEEN SRIVASTAVAELSON MD ? Copy to: JAMES MOODY ACCOUNT MANAGER EDUCATION ? Final Pathologic Diagnosis: ? Gallbladder, cholecys tectomy: ? 1. ?Cholelithia sis. ? 2. ? Attached liver pare nchyma with focal steatosis. ? Document reviewed and electr onically signed by: ? JN MOUNT MD ? Report ??Date: 12/24/2009 16 [...] Organization Address City/State/ZIP Code Phon e Number [facility] [address] [place] [address] SERVICES [facility] [address] [place] [address] documented in this encounter Visit Diagnoses Not on filedocumented in this encounter Care Teams Butter Wrapper Relationship Specialty Start Date End Date Dale Gomez MD PCP - General 12/06/[address] [place] [phone] documented as of this encounter
--- OUTSIDE RECORDS SUMMARY | 2022-06-01 15:31 | XMS_ITS | Encounter Summary ---
:1960 Author Organization [facility] Address [address] [place] [address] Care Team Providers Name Role Phone Dale Gomez MD Primary Care Provider Encounter Details Date Type Department Care Team Description 11/28/2011 Results Only [facility] Nupur Moody NP Laboratory Services - [address] [place] [address] [place] [address] [place] [address] [phone] Social History Tobacco Use Types Packs/Day Years Used Date Never Assessed Sex Assigned at Date Recorded Not on file documented as of this encounter Plan of Treatment Not on filedocumented as of this encounter Procedures Procedure Name Priority Date/Time Associated Diagnosis Comme nts PAP TEST- RESULT Routine 11/28/2011 0:00 EST Resu lts for this ONLY procedure are i n the results section. documented in this encounter Results PAP TEST- RESULT ONLY (11/28/2011 0:00 EST) Pathology Report: CYTOPATHOLOGY REPORT [facility] Reports generated via electronic interface contain katelyn ginal data; however they are lacking the format of the original re port. Caution should be taken when reading/interpreting unfo rmatted reports. Name: ? MELISSA HARRIS ? Accession #: ? [id number] ? : ? 1960 (Age: 51) ??F ?Collect Da te: ? 11/28/2011 ? Location: ? [facility] ? Receive Date: ? 012 ? Provider: JAMES MOODY PHOTOENGRAVING APPRENTICE Copy to: ? Final Report SPECIMEN ADEQUACY ? Satisfactory for Evaluation - assessment of transformation zone component not appl icable ( e.g. atrophy, vaginal sample, hysterectomy) GENERAL CATEGORIZATION ? Negative for Intraepithelial Lesion or Malignan cy ?? Menstural/ Status: ??Post Menopausal Other: Additional clinical information: Stenotic cervi x Specimen/Source: ??Pap Test, Cervix/Endocervix, ThinPr ep Imaging System with manual evaluation Document reviewed and electronically signed by: ? RAUL Anderson(ASCP) ? Report ??Date: 12/04/2011 09:35 HPV with Pap Test ? Date Ordered: ? 12/04/2011 ? Status: ?? Signed Out ?Date Complete: ? 12/06/2011 ? By: ??S ystem Interface ? Date Reported: ? 12/06/2011 ? Interpretation RESULT: Negative for HPV types 16, 18, 31, 33, 35, 39, 45, 51, 52, 56, 58, 59, and 68. Comments Document reviewed and electronically signed by: ? System Interface ? Report date: 12/06/2011 By the signature above, the attending physician certif ies that he/she has personally conducted a gross and/or microscopic examin ation of the described specimens and rendered or confirmed the above diagnosi s. End of Report Specimen Performing Organization Address City/State/ZIP Code Phon e Number [facility] [address] [place] [address] SERVICES [facility] [address] [place] [address] documented in this encounter Visit Diagnoses Not on filedocumented in this encounter Care Teams Industrial Hygiene Manager Relationship Specialty Start Date End Date Dale Gomez MD PCP - General 12/06/[address] [place] [phone] documented as of this encounter
== END 2022-06-01 15:26 | disposition home or self-care (01) ==
LOC: NCHCN 15:25
PROVIDERS: PCP Nurse Practitioner Family; Visit Provider Nurse Practitioner Family
DX: I10 Essential (primary) hypertension (principal); E87.6 Hypokalemia; E83.42 Hypomagnesemia; E03.9 Hypothyroidism, unspecified
CPT/HCPCS: 80053; 85027; 84443

== ENCOUNTER → 2022-10-19 12:45 | Outpatient (BNVA) | payer MEDICARE, MEDICAID, SELFPAY | PROVIDERS: PCP Nurse Practitioner Family; Referring Provider Nurse Practitioner Family; Visit Provider Physical Therapy Assistant | DX: Z12.11 Encounter for screening for malignant neoplasm of colon (principal) ==

== ENCOUNTER 2022-10-30 08:13 | Day surgery (SDC) | payer MEDICARE, MEDICAID, SELFPAY ==
--- NOTE | 2022-10-30 08:46 | COLE_ITS ---
Date of service: 10/30/22 Time of Service: 10:10 Colonoscopy Report Procedure Description: Procedures performed: 1. Colonoscopy 2. Cold forceps polypectomy x2 Preoperative diagnosis: Surveillance colonoscopy Postoperative diagnosis: Colon polyps, sigmoid diverticulosis Surgeon: Juan A Bonner normal colon. Normal colon Anesthesia: Jason Indication for procedure: 62-year-old woman without any symptoms, prior colonoscopy normal, no family history of colon cancer due for surveillance. Findings: Normal terminal ileum.? Small 2-3 mm sessile polyp was removed from the transverse colon with cold forceps technique. Another 2-3 mm sessile polyp was removed from the rectum with cold forceps technique. Diverticular changes present in the sigmoid colon. Surveillance/follow-up recommendations: 10 years Complications: None Blood loss: Minimal Prep: Excellent Procedure in detail: Written consent was obtained from the patient who was in agreement with the risks, benefits and indications of the procedure.? We went to the endoscopy suite and laid the patient in left lateral decubitus position.? Anesthesia was administered which was tolerated well.? A timeout was performed and when we are all in agreement we began the procedure. Digital rectal exam and visual examination was performed and within normal limits.? A well?lubricated colonoscope was advanced without difficulty all the way to the cecum identified by the ileocecal valve, and triangular folds and a ppendiceal orifice.? Terminal ileum was normal.? It was then slowly withdrawn.?? Retroflexion was performed in the rectum.? The findings/interventions are noted above. The scope was then removed and the patient tolerated the procedure well and was then taken back to the PACU in hemodynamically stable condition.
[2022-10-30 08:57] VITALS: BP 141/88; PULSE 80; RESP 16; TEMP 35.7; O2SAT 97
--- NOTE | 2022-10-30 09:10 | W.ANESPRE ---
General Info Date of Service Date Performed: 10/30/22 Height: 4 ft 11.84 in Weight: 79.1 kg Body Mass Index (BMI): 34.2 Surgical Procedure: Operation Date: 10/30/22 10:20 Proposed Procedure Side Surgeon timothy Bonner MD Meds Allergies and Home Medications Allergies Allergy/AdvReac Type Severity Reaction Status Date / Time Sulfa (Sulfonamide Allergy Severe Skin Rash Unverified 10/30/22 08:49 Antibiotics) aspirin Allergy Unknown Unverified 10/30/22 08:49 hydrochlorothiazide AdvReac Intermediate nausea, Unverified 10/30/22 08:49 dizzy oxycodone HCl [From Roxicet] AdvReac Intermediate Itching Unverified 10/30/22 08:49 trazodone AdvReac Intermediate vertigo Unverified 10/30/22 08:49 sertraline [From Zoloft] AdvReac Unknown Unverified 10/30/22 08:49 Home Medication Medication Instructions Recorded atenolol 100 mg tablet 100 mg PO HS 05/10/14 fluticasone propionate 50 100 mcg intranasal PRN PRN 10/16/18 mcg/actuation nasal spray,suspension (Flonase Allergy Relief) levalbuterol tartrate 45 2 puff inhalation TID PRN 10/16/18 mcg/actuation aerosol inhaler (Xopenex HFA) cetirizine 10 mg capsule (Zyrtec) 10 mg PO DAILY 10/21/18 acetaminophen 500 mg capsule 1,000 mg PO Q8H PRN pain #90 caps 12/23/18 Cbd Oil 1 drp PO HS 06/27/19 calcium carb-vit D3-minerals 600 1 tab PO DAILY 06/27/19 mg calcium-200 unit tablet (Calcium 600 + Minerals) multivitamin 1 cap PO DAILY 06/27/19 capsaicin 0.025 % topical cream 1 applic topical TID 12/10/19 fluticasone 100 mcg-salmeterol 50 1 puff inhalation BID PRN 12/10/19 mcg/dose blistr powdr for inhalation (Advair Diskus) prochlorperazine maleate 10 mg 5 mg PO Q6H PRN 12/10/19 tablet alendronate 70 mg tablet 70 mg PO QWEEK 12/15/21 montelukast 10 mg tablet 10 mg PO HS 12/15/21 pantoprazole 40 mg tablet,delayed 40 mg PO DAILY 12/15/21 release atorvastatin 40 mg tablet 40 mg PO HS 09/06/22 lisinopril 40 mg tablet 40 mg PO HS 09/06/22 bisacodyl 5 mg tablet,delayed 5 mg PO ONCE #4 tabs 10/19/22 release (Dulcolax (bisacodyl)) polyethylene glycol 3350 17 17 g PO ONCE #238 grams 10/19/22 gram/dose oral powder Thc 15 - 30 mg PO HS 10/27/22 cyclosporine 0.05 % eye drops in a 1 drp ophthalmic (eye) DAILY 10/30/22 dropperette (Restasis) Current Visit Medications: Current Medications Generic Name Dose Route Start Last Admin Trade Name Freq PRN Reason Stop Dose Admin Ringer's Solution 1,000 mls @ 80 mls/hr 10/30/22 06:00 IV 11/21/22 23:59 INFUSION BERNIE IV Miscellaneous Supplies 1 each 10/30/22 06:00 Iv Access IV 11/21/22 23:59 DIRECTED BERNIE Sodium Chloride 0 ml 10/30/22 06:00 Normal Saline Flush 10 Ml Syr IV 11/21/22 23:59 PRN PRN Sodium Chloride 0 ml 10/30/22 06:00 Normal Saline 10 Ml Vial IJ 11/21/22 23:59 DIRECTED PRN Sterile Water 0 ml 10/30/22 06:00 Water,Injection,Sterile 10 Ml Vial IJ 11/21/22 23:59 DIRECTED PRN PFSH Active Problems Active Problems: Problem Status Onset Code Screening for colon cancer Z12.11 Medical History Medical History Acute renal disease Allergic rhinitis Anxiety and depression Asthma Back pain Bilateral leg pain Chronic abdominal pain Chronic pain Chronic pruritus COPD (chronic obstructive pulmonary disease) Creatinine elevation Cyst of left kidney Drug eruption Fatigue Fatty liver Fracture of left distal radius Status post ORIF on 10/24/2018 GERD (gastroesophageal reflux disease) History of vertebral stress fracture Hydronephrosis, left Hyperlipidemia Hypertension Hypokalemia Hypomagnesemia Left ankle pain Nephrolithiasis Opioid dependence in remission Osteoarthritis of right knee Osteoporosis PTSD (post-traumatic stress disorder) Subclinical hypothyroidism Minaesmus Medical History Comments:: Daily nash mcbride Surgical History Surgical History History of cholecystectomy History of colonoscopy History of extraction of renal calculus History of open reduction and internal fixation (ORIF) procedure Left distal radius and ulna fracture DOS: 10/24/18 History of surgery left ORIF ankle, bilat leg fx History of surgery ORIF lt wrist Tobacco Smoking/Tobacco Use Status: Never Alcohol Alcohol Intake: never Substance Use Substance use: Daily Substance use type: marijuana Vital Signs and Lab Results Vital Signs Most Recent Vital Signs in EMR: Most Recent Vital Signs Temp Pulse Resp BP Pulse Ox 35.7 C L 80 16 141/88 H 97 10/30/22 08:57 10/30/22 08:57 10/30/22 08:57 10/30/22 08:57 10/30/22 08:57 Lab Results Blood Type / Crossmatch: No Data to Display Complete Blood Count: No Data to Display Complete Metabolic Panel: No Data to Display Liver Function Panel: No Data to Display Coagulation Panel: No Data to Display Cardiac Panel: No Data to Display Arterial Blood Gas: No Data to Display Venous Blood Gas: No Data to Display Pancreas Panel: No Data to Display Thyroid Panel: No Data to Display Infectious Disease: No Data to Display Blood Cultures: No Data to Display Toxicology Panel: No Data to Display Anesthesia Assessment and Plan Anesthesia History Personal History: No History of Anesthesia Complications Family History: No Family History of Anesthesia Complications Exercise Tolerance Exercise Tolerance: Metabolic Equivalents<4 Pertinent Negatives Pertinent Negatives: No Symptoms of GERD Cardiac & Pulmonary Exam Cardiac Exam: Normal S1/S2 Heart Sounds Pulmonary Exam: Clear Bilateral Breath Sounds Implantable Cardiac Device Does patient have a Pacemaker or an ICD?: No Airway Exam Known Difficult Airway: No Mallampati Class: 3 Mouth Opening: Narrow (< 3cm) Thyromental Distance: Greater than 3 cm Neck Range of Motion: Full ROM Neck Circumference: Thick Teeth Condition: Normal Dentition ASA Classification ASA Score: ASA 2 Emergency Case?: No NPO Status NPO Status: NPO Clears >2 hours, Solids >8 hours Anesthesia Plan Resuscitation Status: Full Code Anesthesia Technique: General Anesthesia Airway Planned: Natural Airway Monitors Used: Standard Monitors
[2022-10-30 09:12] VITALS: BMI 34.2
[2022-10-30] MEDS: Lactated Ringers 1,000 ML 80 ML IV (09:15)
--- NOTE | 2022-10-30 10:00 | BOWEL_PTH ---
PATIENT: Lena Alexandre LOC: [facility] U#:[id number] AGE/SX: 62/F ROOM: RE10/30/[address]: Ki Bonner : 1960 BED: DIS: 10/30/2022 SPEC #: [id number] RECD: 10/30/22 12:41 STATUS: JESSICA REQ #: [id number] VANESSA: 10/30/22 10:[address]: Ki Bonner DEPT: Surgical Specimen RECD BY: Sharonda Palomino ENTERED: 10/30/22 12:42 SP TYPE: Bowel OTHR DR: Destinee Bhatt Tissues: 1 - BIOPSY BOWEL 2 - BIOPSY BOWEL Procedures: GROSS AND MICRO LEVEL 4 Comments: [id number]
[2022-10-30 10:15] VITALS: BP 109/78; PULSE 73; RESP 16; TEMP 36.1; O2SAT 98
--- NOTE | 2022-10-30 10:35 | W.ANESPOSTOP ---
Postoperative Evaluation Date, Time and Location Date Performed: 10/30/22 Time Performed: 10:15 Patient Location: Day Surgery Unit Vital Signs Most Recent Imported Vital Signs: Most Recent Vital Signs Temp Pulse Resp BP Pulse Ox 36.1 C L 73 16 109/78 98 10/30/22 10:15 10/30/22 10:15 10/30/22 10:15 10/30/22 10:15 10/30/22 10:15 Pain Score Most Recent Pain Score: Most Recent Pain Score Pain Level 3 10/30/22 10:15 Assessment Mental Status: Awake (Alert & Oriented to Patient Baseline) Airway and Respiratory Function: Patent airway with normal (patient baseline) respiratory exam Cardiovascular Function: Hemodynamically Stable Hydration Status: Adequately Hydrated Nausea & Vomiting: No Nausea or Vomiting Pain: Pt. Denies Any Pain Peripheral Nerve Block: Patient did not receive a nerve block
[2022-10-30 10:40] VITALS: BP 120/89; PULSE 73; RESP 16; TEMP 36.7; O2SAT 100
== END 2022-10-30 08:14 | disposition home or self-care (01) ==
PROVIDERS: PCP Nurse Practitioner Family; Visit Provider Student in an Organized Health Care Education/Training Program
PROC: 0DJD8ZZ Inspection of Lower Intestinal Tract, Via Natural or Artificial Opening Endoscopic (ICD-10-PCS; CPT 45378; principal; 2022-10-30 10:15)
DX: Z12.11 Encounter for screening for malignant neoplasm of colon (principal); K63.5 Polyp of colon; Z83.71 Family history of colonic polyps; K57.30 Diverticulosis of large intestine without perforation or abscess without bleeding
CPT/HCPCS: 45380; 88305

== ENCOUNTER → 2022-11-10 09:46 | Outpatient (BNVA) | payer MEDICARE, MEDICAID, SELFPAY | PROVIDERS: PCP Nurse Practitioner Family; Referring Provider Nurse Practitioner Family; Visit Provider Physician Assistant | DX: M17.31 Unilateral post-traumatic osteoarthritis, right knee (principal) | CPT/HCPCS: 99213 ==

== ENCOUNTER 2023-01-24 01:27 | Outpatient (CLI) | payer MEDICARE, MEDICAID, SELFPAY ==
--- NOTE | 2023-01-24 14:10 | DI.MAMMO_ITS ---
Exam(s) MAMMO SCREENING EXAM: MAMMO SCREENING CLINICAL HISTORY: SCREENING, Z12.31,PREVENTIVE CARE,Z00.00 TECHNIQUE: Mammograms were interpreted according to the usual protocol including computer analysis w Raiing CAD system, tomosynthesis and C-view imaging. COMPARISON: 2013 through 2020 FINDINGS: The breasts are composed of heterogeneously dense fibroglandular densities, Breast Density category C . No suspicious masses or suspicious microcalcifications are seen. No skin thickening or abnormal axillary lymph nodes are seen. There has been no significant change from prior exams. IMPRESSION: BI-RADS Category 1, Negative mammogram. Yearly screening mammography is recommended. Breast Density Category C, heterogeneously Dense. The mammogram demonstrates the patient's breast tissue is dense. Dense breast tissue is very common a nd is not abnormal but dense breast tissue can make it harder to find cancer on a mammogram. Also, de nse breast tissue may increase breast cancer risk. This information about the result of the mammogram report was provided to the patient to raise their awareness. Use this report when you speak with the patient about their risks for breast cancer, which includes their family history. At that time, you may recommend additional screening tests (Ultrasound or MRI) as they might be useful based on their r isk. A negative radiographic report should not delay biopsy if a dominant or clinically suspicious mass is present. Up to ten percent of cancers are not identified on mammography. A negative report may reinforce clinical impression. Adenosis and dense breasts may obscure an underlying neoplasm. False positive reports average 6 to 10%.
== END 2023-01-24 01:47 ==
LOC: DI 01:28
PROVIDERS: PCP Nurse Practitioner Family; Visit Provider Family Medicine
DX: Z12.31 Encounter for screening mammogram for malignant neoplasm of breast (principal)
CPT/HCPCS: 77063; 77067

== ENCOUNTER 2024-02-18 12:35 | Outpatient (REF) | payer OTHER, SELFPAY ==
[2024-02-18 14:31] LABS: HGB 12.2 g/dL (11.2-15.7); MCH 28.8 pg (27.0-33.0); MCHC 31.3 % (32.0-36.0); MCV 92 fL (80-95); MPV 11.4 fL (8.0-11.0); Platelet Count 208 10^3/uL (130-400); RBC 4.24 10^6/uL (3.93-5.22); RDW 13.1 % (11.7-14.6); RDW-SD 44.6 fL
[2024-02-18 15:06] LABS: ALT 38 U/L (14-59); AST 21 U/L (15-37); Albumin 3.8 g/dL (3.4-5.0); Alkaline Phosphatase 112 U/L (46-116); Anion Gap 10.5 mmol/L (3-11); BUN 29 mg/dL (7-18); Bilirubin, Total 0.7 mg/dL (0.2-1.0); CO2 27.5 mmol/L (21.0-32.0); CREATININE 1.1 mg/dL (0.55-1.02); Calcium 8.4 mg/dL (8.5-10.1); Calculated LDL 95 mg/dL (<100); Chloride 105 mmol/L (98-107); Cholesterol 179 mg/dL (<200); Estimated GFR 56.46 (mL/min/1.73m2); Glucose 89 mg/dL (74-106); HDL Cholesterol 66 mg/dL (40-60); Magnesium 1.7 mg/dL (1.8-2.4); Potassium 4.2 mmol/L (3.5-5.1); Sodium 143 mmol/L (136-145); TSH (W/Ref FT4) 2.43 uIU/mL (0.36-3.74); Total Protein 6.6 g/dL (6.4-8.2); Triglyceride 94 mg/dL (<150)
== END 2024-02-18 12:36 | disposition home or self-care (01) ==
LOC: NCHCN 12:35
PROVIDERS: PCP Nurse Practitioner Family; Visit Provider Nurse Practitioner Family
DX: N18.30 Chronic kidney disease, stage 3 unspecified (principal); E78.5 Hyperlipidemia, unspecified; Z00.00 Encounter for general adult medical examination without abnormal findings; E03.9 Hypothyroidism, unspecified; M81.0 Age-related osteoporosis without current pathological fracture
CPT/HCPCS: 80053; 80061; 82306; 85027; 83735; 84443

== ENCOUNTER → 2024-03-27 04:10 | Outpatient (CLI) | payer OTHER, SELFPAY ==
--- NOTE | 2024-03-27 | DI.DEXA_ITS ---
Exam(s) XR DEXA BONE DENSITY W/WO MADISON EXAM: XR DEXA BONE DENSITY W/WO MADISON CLINICAL HISTORY: OSTEOPOROSIS M81.0 TECHNIQUE: Routine DEXA evaluation of the lumbar spine, hip, or forearm. COMPARISON: CR XR DEXA BONE DENSITY W/WO MADISON from 11/12/2019 FINDINGS: Performed on a HoloMyoonet unit. Lateral image: No compression fracture evident. Lumbar Spine total T-score: -2.5. Prior reading in October 2019 was -2.9 Hip total T-score:-1.4. Prior reading in October 2019 was -1.7 Independent reading at the level of the femoral neck yields T-score of -2.5 Forearm total T-score: -2.8 IMPRESSION: Bone mineral density measures in the osteoporosis range. Fracture risk is high. Note: Any spine fracture indicates 5x risk for subsequent spine fracture and 2x risk for subsequent h ip fracture. World Health Organization criteria for BMD interpretation classify patients: Normal...... T- Score at or above -1.0 Osteopenic... T- Score between -1.0 and -2.5 Osteoporosis... T-Score at or below -2.5
--- NOTE | 2024-03-27 | DI.MAMMO_ITS ---
Exam(s) MAMMO SCREENING EXAM: MAMMO SCREENING CLINICAL HISTORY: SCREENING MAMMO FOR BREAST CANCER Z12.39. TECHNIQUE: Bilateral full field digital CC and MLO mammographic images were obtained with 3D tomosyn thesis and utilizing computer aided detection (CAD). COMPARISON: Prior mammograms were reviewed. FINDINGS: There has been no significant change in the appearance and distribution of the fibroglandular tissue. There are no new spiculated masses nor malignant appearing microcalcification groups. There is no significant architectural distortion nor skin thickening-retraction. IMPRESSION: No radiographic evidence of malignancy. BI-RADS Category 1 - Negative Breast Density - Category B - Scattered areas of fibroglandular density Breast density Category C or D implies that the patient has dense breast tissue. Dense breast tissue can make it harder to find cancer on a mammogram. Dense breast tissue is also associated with an incr eased risk of breast cancer. This information about the result of the mammogram report was provided to the patient to raise their awareness. Use this report when you speak with the patient about their risks for breast cancer, which includes their family history. At that time, you may recommend additional screening tests (Ultrasoun d or MRI) as these tests may add significant information. A negative radiographic report should not delay biopsy if a dominant or clinically suspicious mass is present. Up to ten percent of cancers are not identified on mammography. A negative report may reinforce clinical impression. Adenosis and dense breasts may obscure an underlying neoplasm. False positive reports average 6 to 10%. Patient will receive a letter notifying them of these results.
== END ==
PROVIDERS: PCP Nurse Practitioner Family; Visit Provider Nurse Practitioner Family
DX: M81.0 Age-related osteoporosis without current pathological fracture (principal); Z12.31 Encounter for screening mammogram for malignant neoplasm of breast; Z13.820 Encounter for screening for osteoporosis
CPT/HCPCS: 77063; 77067; 77080

== ENCOUNTER 2024-06-27 18:15 | Outpatient (REF) | payer OTHER, SELFPAY ==
--- OUTSIDE RECORDS SUMMARY | 2024-06-27 18:20 | XMS_ITS | Encounter Summary ---
[place] [address] Care Team Providers Care Charity Fundraiser Name Role Phone Destinee Bhatt APRN Primary Care Provider [phone] Encounter Details Date Type Department Care Team (Latest Contact Info) Description 03/17/2021 2:00 PM EDT Laboratory Appointment Lab [address] [place] [address] CKD (chronic kidney disease) stage 3, GFR 30-59 ml/min Social History Tobacco Use Types Packs/Day Years Used Date Smoking Tobacco: Never Smokeless Tobacco: Never Alcohol Use Standard Drinks/Week Comments Yes 0 (1 standard drink = 0.6 oz pure alcohol) 2-3 times per year, denies h/o ETOH abuse Sex and Gender Information Value Date Recorded Sex Assigned at Not on file Gender Identity Not on file Sexual Orientation Not on file documented as of this encounter Plan of Treatment Not on file documented as of this encounter Procedures Procedure Name Priority Date/Time Associated Diagnosis Comments HC VENIPUNCTURE Routine 03/17/2021 2:13 PM EDT CKD (chronic kidney disease) stage 3, GFR 30-59 ml/min documented in this encounter Results * (ABNORMAL) Basic Metabolic Panel (non-fasting) (03/17/2021 2:13 PM EDT) Glucose 105 65 - 199 mg/dL [facility] Comment:Diabetes: >=200 mg/d L plus symptoms Blood Urea Nitrogen 23(H) 8 - 18 mg/dL [facility] Creatinine 1.23(H) 0.70 - 1.20 mg/dL [facility] Sodium 143 135 - 145 mmol/L [facility] Potassium 4.2 3.5 - 5.0 mmol/L [facility] Comment: Please note: ??Patients with WBC >100,000 may have falsely elevated Potassium levels. ??For accurate Potassium quantification in these patients send serum separator tube (gold top) for subsequent determinations. ??Contact the Clinical Chemistry Laboratory if there are any questions. Chloride 106 98 - 107 mmol/L [facility] Carbon Dioxide 26 22 - 31 mmol/L [facility] Anion Gap 11 5 - 15 mmol/L [facility] Calcium 9.0 8.5 - 10.5 mg/dL [facility] Est Glomerular Filtration Rate 48(L) >=60 mL/min/1. 73 m?? [facility] Comment: This patient? s estimated glomerular filtration rate (eGFR) is between 48 mL/min/1.73 m2 (patients with less muscle mass) and 55 mL/min/1.73 m2 (patients with more muscle mass) as determined by the CKD-EPI equation. Assessment of eGFR is not appropriate when creatinine concentrations are rapidly changing. For clinical decisions where creatinine clearance will affect therapy, a 24-hour urine creatinine clearance may be advised. Assignment of CKD stage 1 - 5 for patients with an eGFR near the transition point between stages may be based on clinical assessment of muscle mass and symptoms in addition to eGFR. Blood 03/17/2021 2:13 PM EDT 03/17/2021 2:26 PM EDT Narrative Resulting Agency Comment Spec In Lab Benitez Adames MD CHEMISTRY ORDERABLES [facility] [place] [address] documented in this encounter Visit Diagnoses Diagnosis CKD (chronic kidney disease) stage 3, GFR 30-59 ml/min Chronic kidney disease, Stage III (moderate) documented in this encounter Care Teams Charity Fundraiser Relationship Specialty Start Date End Date Destinee Bhatt APRN [address] [place] [address] PCP - General Family Medicine 08/23/20 documented as of this encounter
--- OUTSIDE RECORDS SUMMARY | 2024-06-27 18:20 | XMS_ITS | Encounter Summary ---
Author Organization [facility] [place] [address] Care Team Providers Care Top Loader Name Role Phone Destinee Bhatt APRN Primary Care Provider [phone] Encounter Details Date Type Department Care Team (Latest Contact Info) Description 09/07/2023 Travel Social History Tobacco Use Types Packs/Day Years [...] on file documented as of this encounter Visit Diagnoses Not on filedocumented in this encounter Care Teams Top Loader Relationship Specialty Start Date End Date Destinee Bhatt APRN [address] [place] [address] PCP - General Family Medicine 08/23/20 documented as of this encounter
--- OUTSIDE RECORDS SUMMARY | 2024-06-27 18:20 | XMS_ITS | Encounter Summary ---
Author Organization [facility] [place] [address] Care Team Providers Care Construction Equipment Technician Name Role Phone Marko Duffy DNP Primary Care Provider [phone] Encounter Details Date Type Department Care Team (Late st Contact Info) Description 11/21/2019 9:20 PM EST Ancillary Procedure [place] [id number] Benitez Adames MD [facility] [place] [address] Social History Tobacco Use Types Packs/Day Years [...] Procedure Name Priority Date/Time Associated Diagnosis Comments FILM LIBRARY STORAGE ONLY ULTRASOUND STUDY Routine 11/21/2019 9:18 PM EST documented in this encounter Results * Film Library- Storage Only Ultrasound Study (11/21/2019 9:18 PM EST) Narrative [facility] - 11/21/2019 9:18 PM EST This exam is auto-finalizing. It's purpose is for storage only. Benitez Adames MD IMG FILM LIBRARY ORD ERABLES [place], [place] documented in this encounter Visit Diagnoses Not on filedocumented in this encounter Care Teams Construction Equipment Technician Relationship Specialty Start Date End Date Marko Duffy DNP PCP - General Family Medicine 07/10/19 08/22/20 documented as of this encounter
--- OUTSIDE RECORDS SUMMARY | 2024-06-27 18:20 | XMS_ITS | Encounter Summary ---
Author Organization [facility] [place] [address] Care Team Providers Care Manager Math Name Role Phone Destinee Bhatt APRN Primary Care Provider [phone] Encounter Details Date Type Department Care Team (Latest Contact Info) Description 02/20/2023 Travel Social History Tobacco Use Types Packs/Day [...] on filedocumented in this encounter Care Teams Manager Math Relationship Specialty Start Date End Date Destinee Bhatt APRN [address] [place] [address] PCP - General Family Medicine 08/23/20 documented as of this encounter
--- OUTSIDE RECORDS SUMMARY | 2024-06-27 18:20 | XMS_ITS | Data Portability ---
Author Organization [place] - [facility] Address [place] [address] Assessment No assessment recorded. Plan of Treatment Reminders Order Date Submit Date Provider Last Modified By Organization Details Last Modified Time Details Appointments Acute 20 2023 09:40A M Not available Not available Not available Office Visit 30 2023 10:00A M Not available Not available Not available Lab vitamin D, 25-hydrox y, total, serum - 1T, 1P 2023 024 [facility] (Registration ), [address] [place] [address] [place], [address], 02/18/2024 15:15:28 CMP, serum or plasma - 1T, 1P 2023 024 [facility] (Registration ), [address] [place] [address] [place], [address], 02/18/2024 15:10:27 magnesium , serum or plasma - 1T, 1P 2023 024 [email or web address] [facility] (Registration ), [address] [place] [address] [place], [address], 02/19/2024 08:37:35 TSH, serum, reflex free T4 - 1T, 1P 2023 024 [email or web address] [facility] (Registration ), [address] [place] [address] Dr [facility] [place], [address], 02/19/2024 08:37:26 lipid panel, serum - 1T, 1P 2023 024 [email or web address] [facility] (Registration ), [address] [place] [address] [place], [address], 02/19/2024 08:37:15 CBC - 1T, 1P 2023 024 [facility] (Registration ), [address] [place] [address] [place], [address], 02/18/2024 14:43:28 culture, urine + sensitivi ty [address] Laboratory (Registration ), [address] [place] [address] [place], [address], 06/27/2024 10:23:54 urinalysi s, dipstick 2023 024 [email or web address] [facility], [address] [place] [address], [address], 06/27/2024 10:23:54 Referral physical therapist referral 2023 024 REJI Hairston [facility], [address] , [place], [address], 01/03/2024 13:20:06 Procedures None recorded. Surgeries None recorded. Imaging DEXA 2023 024 [facility] (Radiology), [address] [place] [address] [place], [address], 04/29/2024 14:43:33 MAMMO, screening , bilateral 2023 024 [facility] (Radiology), [address] [place] [address] [place], [address], 04/29/2024 14:43:41 Medication Orders alendrona te 70 mg tablet 2023 024 [facility], [address] [facility], [place], [address], 12/04/2023 16:22:51 fluticaso ne propionat e 50 mcg/actua tion nasal spray,reyna pension 2023 024 [facility], [address] [place] [address], [address], 12/04/2023 16:12:17 lisinopri l 40 mg tablet 2023 024 [facility], [address] [place] [address], [address], 01/09/2024 13:39:13 atenolol 100 mg tablet 2023 024 [facility], [address] [place] [address], [address], 01/09/2024 13:39:15 lidocaine HCl 4 % topical cream 2023 024 [facility], [address] [place] [address], [address], 06/27/2024 09:32:09 acetamino phen 500 mg tablet 2023 024 [email or web address] [facility], [address] [place] [address], [address], 03/12/2024 16:11:39 cholestyr amine-asp artame 4 gram oral powder 2023 024 [facility], [address] [place] [address], [address], 06/27/2024 09:59:42 ciproflox acin 250 mg tablet 2023 024 [facility], [address] [place] [address], [address], 06/27/2024 09:59:42 Patient TargetsNo targets recorded. Patient InstructionsNo instructions recorded. Reason for Referral Physical Therapist Referral for Low back pain Referring Physician: Saida Bhatt, Family Medicine, Encounter Date: 12/04/2023 Results Created Date Observation Date Name Description Value Unit Range Abnormal Flag Note LastModifiedBy Organization Detail LastModifiedTime 02/18/20 24 02/18/2024 COMPL ETE BLOOD COUNT NO DIFF WBC 7.30 10_3/ uL 4.4-10 .8 normal Not Available [address] [place], [address] 02/18/2024 14:43:28 02/18/20 24 02/18/2024 COMPL ETE BLOOD COUNT NO DIFF RBC 4.24 10_6/ uL 3.93-5 .22 normal Not Available [address] [place], [address] 02/18/2024 14:43:28 02/18/20 24 02/18/2024 COMPL ETE BLOOD COUNT NO DIFF HGB 12.2 g/dL 11.2-1 5.7 normal Not Available [address] [place], [address] 02/18/2024 14:43:28 02/18/20 24 02/18/2024 COMPL ETE BLOOD COUNT NO DIFF HCT 39.0 % 36.0-4 6.0 normal Not Available [address] [place], [address] 02/18/2024 14:43:28 02/18/20 24 02/18/2024 COMPL ETE BLOOD COUNT NO DIFF MCV 92 fL 80-95 normal Not Available Luz Elena saba [address] [place], [address] 02/18/2024 14:43:28 02/18/20 24 02/18/2024 COMPL ETE BLOOD COUNT NO DIFF MCH 28.8 pg 27.0-3 3.0 normal Not Available [address] [place], [address] 02/18/2024 14:43:28 02/18/20 24 02/18/2024 COMPL ETE BLOOD COUNT NO DIFF MCHC 31.3 % 32.0-3 6.0 low Not Available [address] [place], [address] 02/18/2024 14:43:28 02/18/20 24 02/18/2024 COMPL ETE BLOOD COUNT NO DIFF RDW 13.1 % 11.7-1 4.6 normal Not Available [address] [place], [address] 02/18/2024 14:43:28 02/18/20 24 02/18/2024 COMPL ETE BLOOD COUNT NO DIFF platelet count 208 10_3/ uL 130-40 0 normal Not Available [address] [place], [address] 02/18/2024 14:43:28 02/18/20 24 02/18/2024 COMPL ETE BLOOD COUNT NO DIFF MPV 11.4 fL 8.0-11 .0 high Not Available [address] [place], [address] 02/18/2024 14:43:28 02/18/20 24 02/18/2024 COMPR EHENS GELA METAB OLIC PANEL calcium 8.4 mg/dL 8.5-10 .1 low Not Available [address] [place], [address] 02/18/2024 15:10:27 02/18/20 24 02/18/2024 COMPR EHENS GELA METAB OLIC PANEL glucose 89 mg/dL 74-106 normal Not Available Luz Elena [address] [place], [address] 02/18/2024 15:10:27 02/18/20 24 02/18/2024 COMPR EHENS GELA METAB OLIC PANEL BUN 29 mg/dL 7-18 high Not Available Luz Elena saba [address] [place], [address] 02/18/2024 15:10:27 02/18/20 24 02/18/2024 COMPR EHENS GELA METAB OLIC PANEL creatinine 1.1 mg/dL 0.55-1 .02 high Not Available [address] [place], [address] 02/18/2024 15:10:27 02/18/20 24 02/18/2024 COMPR EHENS GELA METAB OLIC PANEL estimated GFR 56.46 mL/min /1.73m 2 The eGFR is calcu lated from a serum creat inine using the CKD-E PI 2020 equat ion. Other varia bles requi red for the equat ion are gende r and age; this equat ion does not inclu de a race coeff icien t. This equat ion has simil ar overa ll perfo rmanc e to previ ous equat ions excep t value s may diffe r, in parti cular , in patie nts with highe r value s of eGFR and young er-ag ed adult s. Not Available [address] [place], [address] 02/18/2024 15:10:27 02/18/20 24 02/18/2024 COMPR EHENS GELA METAB OLIC PANEL total protein 6.6 g/dL 6.4-8. 2 normal Not Available [address] [place], [address] 02/18/2024 15:10:27 02/18/20 24 02/18/2024 COMPR EHENS GELA METAB OLIC PANEL albumin 3.8 g/dL 3.4-5. 0 normal Not Available [address] [place], [address] 02/18/2024 15:10:27 02/18/20 24 02/18/2024 COMPR EHENS GELA METAB OLIC PANEL bilirubin, total 0.7 mg/dL 0.2-1. 0 normal Not Available [address] [place], [address] 02/18/2024 15:10:27 02/18/20 24 02/18/2024 COMPR EHENS GELA METAB OLIC PANEL alk phos 112 U/L 46-116 normal Not Available [address] [place], [address] 02/18/2024 15:10:27 02/18/20 24 02/18/2024 COMPR EHENS GELA METAB OLIC PANEL sodium 143 mmol/ L 136-14 5 normal Not Available [address] [place], [address] 02/18/2024 15:10:27 02/18/20 24 02/18/2024 COMPR EHENS GELA METAB OLIC PANEL potassium 4.2 mmol/ L 3.5-5. 1 normal Not Available [address] [place], [address] 02/18/2024 15:10:27 02/18/20 24 02/18/2024 COMPR EHENS GELA METAB OLIC PANEL chloride 105 mmol/ L 98-107 normal Not Available [address] [place], [address] 02/18/2024 15:10:27 02/18/20 24 02/18/2024 COMPR EHENS GELA METAB OLIC PANEL CO2 27.5 mmol/ L 21.0-3 2.0 normal Not Available [address] [place], [address] 02/18/2024 15:10:27 02/18/20 24 02/18/2024 COMPR EHENS GELA METAB OLIC PANEL anion gap 10.5 mmol/ L 3-11 normal Not Available [address] [place], [address] 02/18/2024 15:10:27 02/18/20 24 02/18/2024 COMPR EHENS GELA METAB OLIC PANEL AST 21 U/L 15-37 normal Not Available Luz Elena [address] [place], [address] 02/18/2024 15:10:27 02/18/20 24 02/18/2024 COMPR EHENS GELA METAB OLIC PANEL ALT 38 U/L 14-59 normal Not Available Luz Elena saba [address] [place], [address] 02/18/2024 15:10:27 02/18/20 24 02/18/2024 LIPID 2 cholesterol 179 mg/dL <200 Not Available Scottie allen [address] [place], [address] 02/18/2024 15:10:28 02/18/20 24 02/18/2024 LIPID 2 triglyceride 94 mg/dL <150 Not Available [address] [place], [address] 02/18/2024 15:10:28 02/18/20 24 02/18/2024 LIPID 2 HDL cholesterol 66 mg/dL 40-60 Not Available Bj menardkenny [address] [place], [address] 02/18/2024 15:10:28 02/18/20 24 02/18/2024 LIPID 2 calculated LDL 95 mg/dL <100 Natio nal Leonila stero l Educa tion Progr am (NCEP -ATPI II) class ifica tions : Leonila stero l <200 mg/dL Gus able Leonila stero l 200-2 39 mg/dL Borde rline High Leonila stero l >or=2 40 mg/dL High HDL <40 mg/dL Low HDL >or=6 0 mg/dL High LDL <100 mg/dL Optim al LDL 100-1 29 mg/dL Near Optim al/Ab ove Optim al LDL 130-1 59 mg/dL Borde rline High LDL 160-1 89 mg/dL High LDL >or=1 90 mg/dL Very High *The above refer ence range is for adult s 18 years or older . Not Available [address] [place], [address] 02/18/2024 15:10:02/18/20 24 02/18/2024 MAGNE SIUM magnesium 1.7 mg/dL 1.8-2. 4 low Not Available [address] [place], [address] 02/18/2024 15:10:28 02/18/20 24 02/18/2024 TSH (W/RE F FT4) TSH (w/ref FT4) 2.43 uIU/m L 0.36-3 .74 normal Not Available [address] [place], [address] 02/18/2024 15:10:29 02/18/20 24 02/18/2024 VITAM IN D 25 TOTAL vitamin D 25 total 33.0 NG/mL 30-100 normal Refer ence Guide lines : Defic ient: <10 ng/ml Insuf ficie nt: 10-30 ng/ml Suffi cient : 30-10 0 ng/ml Toxic : >100 ng/ml Not Available [address], [place], [address] 02/18/2024 15:15:28 06/27/2006/27/2024 urina lysis , dipst ick Leukocytes Modera te Not Available [address], [address], 06/27/2024 09:53:19 06/27/20 24 06/27/2024 urina lysis , dipst ick Nitrite positi ve Not Available [address], [address], 06/27/2024 09:53:19 06/27/20 24 06/27/2024 urina lysis , dipst ick Urobilinogen .2 Not Available [address], [address], 06/27/2024 09:53:19 06/27/20 24 06/27/2024 urina lysis , dipst ick Protein 30 Not Available [address], [address], 06/27/2024 09:53:19 06/27/20 24 06/27/2024 urina lysis , dipst ick pH 5.0 Not Available [address], [address], 06/27/2024 09:53:19 06/27/2006/27/2024 urina lysis , dipst ick Blood Negati ve Not Available [address], [address], 06/27/2024 09:53:19 06/27/20 24 06/27/2024 urina lysis , dipst ick Specific Molina 1.025 Not Available [address], [address], 06/27/2024 09:53:19 06/27/20 24 06/27/2024 urina lysis , dipst ick Ketone Negati ve Not Available [address], [address], 06/27/2024 09:53:19 06/27/20 24 06/27/2024 urina lysis , dipst ick Bilirubin Negati ve Not Available [address], [address], 06/27/2024 09:53:19 06/27/20 24 06/27/2024 urina lysis , dipst ick Glucose Negati ve Not Available [address], [address], 06/27/2024 09:53:19 06/27/20 24 06/27/2024 urina lysis , dipst ick Appearance Clear Not Available [address], [address], 06/27/2024 09:53:19 06/27/2006/27/2024 urina lysis , dipst ick Color Dark Yellow Not Available [address], [address], 06/27/2024 09:53:19 03/27/20 24 03/27/2024 MAMMO , scree chad, bilat linda Ragland t Name: Janay Pratt Unit #: [id number] Loc: DI Orderi ng Provid er: Saida Bhatt Accoun t #: [id number] Status : REG CLI Primar y Care Provid er: Saida Bhatt Date of Exam: Sex: F Admiss ion Date: : 1959 Age: 63 Exam(s ) MG MAMMO SCREEN ING EXAM: MG MAMMO SCREEN ING CLINIC AL HISTOR Y: SCREEN ING MAMMO FOR BREAST CANCER Z12.39 . TECHNI QUE: Bilate ral full field digita l CC and MLO mammog raphic images were obtain ed with 3D tomosy nthesi s and utiliz ing comput er aided detect ion (CAD). COMPAR PAYTON: Prior mammog david were review ed. FINDIN GS: There has been no signif icant change in the appear ance and distri bution of the fibrog landul ar tissue . There are no new spicul ated masses nor malign ant appear ing microc alcifi cation groups . There is no signif icant darius ectura l distor tion nor skin thicke chad-r etract ion. IMPRES JOSE RAMON: No radiog raphic eviden ce of malign glenys. BI-RAD S Catego ry 1 - Negati ve Breast Densit y - Catego ry B - Scatte red areas of fibrog landul ar densit y Breast densit y Catego ry C or D implie s that the patien t has dense breast tissue . Dense breast tissue can make it harder to find cancer on a mammog kaushal. Dense breast tissue is also associ ated with an increa sed risk of breast cancer . This inform ation about the result of the mammog kaushal report was provid ed to the patien t to raise their awaren ess. Use this report when you speak with the patien t about their risks for breast cancer , which includ es their family histor y. At that time, you may recomm end additi onal screen ing tests (Ultra sound or MRI) as these tests may add signif icant inform ation. A negati ve radiog raphic report should not delay biopsy if a domina nt or clinic ally suspic ious mass is presen t. Up to ten percen t of cancer s are not identi fied on mammog colleen. A negati ve report may reinfo rce clinic al impres jose ramon. Adenos is and dense breast s may obscur e an underl norma neopla sm. False positi ve report s averag e 6 to 10%. Patien t will receiv e a letter notify ing them of these result s. Maria Victoria d By: Saida Bhatt CC: ------ ------ ------ ------ ------ ------ ------ ------ ------ ------ ------ ------ - Dictat ed By: Paco Solano M.D. 1523 1523 Transc ribed By: Russ NEGRO,Fabrice symone 1523 This is privil eged, confid ential inform ation intend ed only for the provid er named. Any use or distri bution by any person other than this provid er is strict ly prohib ited. If you receiv e this report in error, please notify us immedi ately at and return the origin al report to us at the addres s above. Thank- you. [email or web address] [facility] (Radiology) [address] [place] [address] Dr, [place], [address], 04/29/2024 14:43:41 03/27/20 24 03/27/2024 DEXA Patidawson t Name: Janay Pratt Unit #: [id number] Loc: DI Orderi ng Provid er: Saida Bhatt Accoun t #: [id number] Status : REG CLI Primar y Care Provid er: Saida Bhatt Date of Exam: Sex: F Admiss ion Date: : 1959 Age: 63 Exam(s ) XR DEXA BONE DENSIT Y W/WO MADISON EXAM: XR DEXA BONE DENSIT Y W/WO MADISON CLINIC AL HISTOR Y: OSTEOP OROSIS M81.0 TECHNI QUE: Routin e DEXA evalua tion of the lumbar spine, hip, or forear m. COMPAR PAYTON: CR XR DEXA BONE DENSIT Y W/WO MADISON from 2019 FINDIN GS: Perfor med on a Hologi c unit. Latera l image: No compre ssion fractu re eviden t. Lumbar Spine total T-scor e: -2.5. Prior readin g in 2019 was -2.9 Hip total T-scor e:-1.4 . Prior readin g in 2019 was -1.7 Indepe ndent readin g at the level of the femora l neck yields T-scor e of -2.5 Forear m total T-scor e: -2.8 IMPRES JOSE RAMON: Bone minera l densit y measur es in the osteop orosis range. Fractu re risk is high. Note: Any spine fractu re indica maribel 5x risk for subseq uent spine fractu re and 2x risk for subseq uent hip fractu re. World Health Organi zation criter ia for BMD interp retati on classi fy patien ts: Normal ...... T- Score at or above -1.0 Osteop enic.. . T- Score betwee n -1.0 and -2.5 Osteop orosis ... T-Scor e at or below -2.5 Ordere d By: Saida Bhatt CC: ------ ------ ------ ------ ------ ------ ------ ------ ------ ------ ------ ------ - Dictat ed By: Paco Solano M.D. 1801 Transc ribed By: Russ NEGRO,Fabrice ashby 1801 This is privil eged, confid ential inform ation intend ed only for the provid er named. Any use or distri bution by any person other than this provid er is strict ly prohib ited. If you receiv e this report in error, please notify us immedi juan mly at and return the origin al report to us at the addres s above. Thank- you. [email or web address] [facility] (Radiology) [facility], [place], [address], 04/29/2024 14:43:33 Result Notes Documentation Provider Name and Address Organization Details Recorded Time Mammo, Screening, Bilateral : Patient Name: Lena Alexandre Unit #: [id number] Loc: DI Ordering Provider: Saida Bhatt Status: REG CLI Primary Care Provider: Saida Bhatt Date of Exam: 03/27/24 Sex: F Admission Date: 03/27/24 : 1960 Age: 63 Exam(s) MG MAMMO SCREENING EXAM: MG MAMMO SCREENING CLINICAL HISTORY: SCREENING MAMMO FOR BREAST CANCER Z12.39. TECHNIQUE: Bilateral full field digital CC and MLO mammographic images were obtained with 3D tomosynthesis and utilizing computer aided detection (CAD). COMPARISON: Prior mammograms were reviewed. FINDINGS: There has been no significant change in the appearance and distribution of the fibroglandular tissue. There are no new spiculated masses nor malignant appearing microcalcification groups. There is no significant architectural distortion nor skin thickening-retraction. IMPRESSION: No radiographic evidence of malignancy. BI-RADS Category 1 - Negative Breast Density - Category B - Scattered areas of fibroglandular density Breast density Category C or D implies that the patient has dense breast tissue. Dense breast tissue can make it harder to find cancer on a mammogram. Dense breast tissue is also associated with an increased risk of breast cancer. This information about the result of the mammogram report was provided to the patient to raise their awareness. Use this report when you speak with the patient about their risks for breast cancer, which includes their family history. At that time, you may recommend additional screening tests (Ultrasound or MRI) as these tests may add significant information. A negative radiographic report should not delay biopsy if a dominant or clinically suspicious mass is present. Up to ten percent of cancers are not identified on mammography. A negative report may reinforce clinical impression. Adenosis and dense breasts may obscure an underlying neoplasm. False positive reports average 6 to 10%. Patient will receive a letter notifying them of these results. Ordered By: Saida Bhatt CC: Dictated By: Paco Solano M.D. 03/27/24 1523 03/27/24 1523 Transcribed By: Paco Solano MD 03/27/24 1523 This is privileged, confidential information intended only for the provider named. Any use or distribution by any person other than this provider is strictly prohibited. If you receive this report in error, please notify us immediately at [phone] and return the original report to us at the address above. Thank-you. Esther isaac [place] - [facility]. 04/29/2024 14:43:41 Dexa : Patient Name: Lena Alexandre Unit #: [id number] Loc: DI Ordering Provider: Saida Bhatt Status: REG CLI Primary Care Provider: Saida Bhatt Date of Exam: 03/27/24 Sex: F Admission Date: 03/27/24 : 1960 Age: 63 Exam(s) XR DEXA BONE DENSITY W/WO MADISON EXAM: XR DEXA BONE DENSITY W/WO MADISON CLINICAL HISTORY: OSTEOPOROSIS M81.0 TECHNIQUE: Routine DEXA evaluation of the lumbar spine, hip, or forearm. COMPARISON: CR XR DEXA BONE DENSITY W/WO MADISON from 11/12/2019 FINDINGS: Performed on a Ducatt unit. Lateral image: No compression fracture evident. Lumbar Spine total T-score: -2.5. Prior reading in October 2019 was -2.9 Hip total T-score:-1.4. Prior reading in October 2019 was -1.7 Independent reading at the level of the femoral neck yields T-score of -2.5 Forearm total T-score: -2.8 IMPRESSION: Bone mineral density measures in the osteoporosis range. Fracture risk is high. Note: Any spine fracture indicates 5x risk for subsequent spine fracture and 2x risk for subsequent hip fracture. World Health Organization criteria for BMD interpretation classify patients: Normal...... T- Score at or above -1.0 Osteopenic... T- Score between -1.0 and -2.5 Osteoporosis... T-Score at or below -2.5 Ordered By: Saida Bhatt CC: Dictated By: Paco Solano M.D. 03/27/24180103/27/241801 Transcribed By: Paco Solano MD 03/27/241801 This is privileged, confidential information intended only for the provider named. Any use or distribution by any person other than this provider is strictly prohibited. If you receive this report in error, please notify us immediately at [phone] and return the original report to us at the address above. Thank-you. Esther isaac, [facility] 04/29/2024 14:43:33 Problems Name Problem SNOMED Code Status Onset Date Resolution Date Notes Provider Name and Address Organization Details Recorded Time Steatosi s of liver 978219268 Active [address], [address] 4 15:31:14 [facility] jose ramon 72883553 Active [address], [address] 4 15:28:12 Uncompli cated moderate persiste nt asthma 689944602 Active [address], [address] 4 15:31:54 Hyperlip idemia 59403008 Active [address], [facility] [id number] [place] [address] 4 15:30:35 Anxiety 56372014 Active 2010 Agustín isaac, [facility] 4 19:40:08 Kidney stone 51345850 Completed 200901/17/2010 Problem Code: 592.0; Problem Code Type: ICD-9; Not Available [facility] 3 04:26:14 History of urinary stone 802073518 Active 2007 w/lithot ripsy Agustín De La Torre [facility]. 4 19:45:14 Senile osteopor osis 79609778 Active 2004 started 10/[address], [facility] [address] , [facility] 4 15:29:30 Posttrau matic stress disorder 90789534 Active 2013 Agustín De La Torre [facility]. 4 19:42:25 Headache 11162788 Completed 200403/19/2017 Problem Code: R51; Problem Code Type: ICD-10; Not Available [facility] 3 04:26:15 Pain in thoracic spine 002653849 Active [address], [facility] [address] , [facility] 4 12:25:05 Arthralg ia of the ankle and/or foot 133313927 Active 2013 Agustínjair [facility] 4 19:40:23 Chronic pain 50338603 Active [address], [facility] [id number] 4 12:05:30 Pain of right knee joint 88861285817 4100 Active [address], [facility] [address] , [facility] 4 15:25:06 Adult health examinat ion Active [address], [facility] [address] , [facility] 4 15:29:58 Pain of right knee joint 85232280396 4100 Completed 201612/16/2017 Problem Code: M25.561; Problem Code Type: ICD-10; [address], [facility] [address] , [facility] 4 15:25:06 Infestat ion by Sarcopte s scabiei radha hominis [id number] Completed 201703/21/2018 Problem Code: B86; Problem Code Type: ICD-10; Not Available [facility] 3 04:26:15 Chronic kidney disease stage 3 861636812 Active [address], [facility] [address] , [facility] 4 12:24:53 Digestiv e system finding 589323508 Active [address], [facility] [address] , [facility] 4 15:30:24 Opioid dependen ce in [facility] n 115081985 Active [address], [facility] [address] , [facility] 4 15:30:45 History of stress fracture [id number] 9101 [facility] 2018 [facility] 4 19:46:12 Hypokale lala 18080614 Active [address], [facility] [address] , [facility] 4 15:31:03 Fatigue 55822431 Active 2019 [facility] 4 19:41:01 Pain in lower limb 72079090 Active [address], [facility] [address] , [facility] 4 12:23:20 Hypomagn esemia 453878639 Active [address], [facility] [address] , [facility] 4 15:30:54 Allergic rhinitis 23920810 Active [address], [facility] [address] [facility] 4 12:17:17 History of polyp of colon 472931369 Completed 202201/03/2024 Problem Code: Z86.010; Problem Code Type: ICD-10; Agustín De Leonvenus isaac, [facility] 4 19:43:46 Screenin g mammogra phy Active [address], [facility] [address] [facility] 4 15:31:38 Upper respirat ory tract infectio n caused by Influenz a virus [id number] 584939 Completed 202201/08/2023 Problem Code: J11.1; Problem Code Type: ICD-10; Not Available [facility] 3 04:26:17 Benign hyperten jose ramon 73939692 Completed 200607/18/2023 Not Available [facility] 3 04:26:18 Mixed anxiety and depressi ve disorder 784929951 Completed 200402/11/[address] [facility] 3 04:26:18 Acute upper respirat ory infectio n 37815424 Completed 201710/28/2018 Problem Code: J06.9; Problem Code Type: ICD-10; Not [facility] 3 04:26:18 Allergy Completed 201307/18/2023 Problem Code: 995.3; Problem Code Type: ICD-9; Not Available [facility] 3 04:26:18 Joint pain in ankle and foot Completed 201307/18/2023 Problem Code: 719.47; Problem Code Type: ICD-9; Not Available [facility] 3 04:26:18 Localize d eruption of skin 541908391 Completed 201805/31/2021 Problem Code: R21; Problem Code Type: ICD-10; Not Available [facility] 3 04:26:19 Generali zed skin eruption caused by drug and medicame nt 735343329 Completed 201809/09/2020 Problem Code: L27.0; Problem Code Type: ICD-10; Not Available [facility] 3 04:26:19 Periapic al abscess 776120905 Completed 201909/09/2020 Problem Code: K04.7; Problem Code Type: ICD-10; Not Available [facility] 3 04:26:19 Hyperlip idemia screenin g Completed 201503/05/2017 Problem Code: Z13.220; Problem Code Type: ICD-10; Not Available [facility] 3 04:26:19 Dysmenor bryson 506625575 Completed 200402/19/2019 Problem Code: N94.6; Problem Code Type: ICD-10; Not Available [facility] 3 04:26:19 Osteopor osis 74137949 Completed 200407/18/2023 Not Available [facility] 3 04:26:20 Diabetes mellitus screenin g Completed 201503/05/2017 Problem Code: Z13.1; Problem Code Type: ICD-10; Not Available [facility] 3 04:26:20 Biliary calculus 046843277 Completed 200702/19/2019 Not Available [facility] 3 04:26:20 Depressi ve disorder 62434243 Completed 200702/11/2018 Not Available [facility] 3 04:26:20 IgE-medi ated allergic asthma 043089590 Completed Problem Code: 493.00; Problem Code Type: ICD-9; Not Available [facility] 3 04:26:20 Kidney stone 51856135 Completed 200707/18/2023 Problem Code: 592.0; Problem Code Type: ICD-9; Not Available [facility] 3 04:26:21 Screenin g for malignan t neoplasm of colon Completed 201909/09/2020 Problem Code: Z12.11; Problem Code Type: ICD-10; Not Available [facility] 3 04:26:21 Hydronep hrosis 83314870 Completed 200806/01/2022 Problem Code: N13.30; Problem Code Type: ICD-10; Not Available [facility] 3 04:26:21 Backache 771439991 Completed 201307/18/2023 Not Available [facility] 3 04:26:21 Uncompli cated asthma 822765505 Completed 195907/18/2023 Problem Code: J45.909; Problem Code Type: ICD-10; Not Available [facility] 3 04:26:21 Renal function tests outside referenc e range 715271612 Completed 201803/23/2021 Problem Code: R94.4; Problem Code Type: ICD-10; Not Available [facility] 3 04:26:22 Disorder of kidney and/or ureter 580102678 Completed 201807/18/2023 Problem Code: N28.9; Problem Code Type: ICD-10; Not Available [facility] 3 04:26:22 Measurem ent finding 115556819 Completed 201905/31/2021 Problem Code: R78.89; Problem Code Type: ICD-10; Not Available [facility] 3 04:26:22 Superfic ial injury of finger 564603925 Completed 202104/21/2022 Not Available [facility] 3 04:26:23 Breast lump 28327557 Completed 202012/01/2021 Problem Code: N63.0; Problem Code Type: ICD-10; Not Available [facility] 3 04:26:23 Family history of diabetes mellitus 492808594 Completed 201605/31/2021 Problem Code: Z83.3; Problem Code Type: ICD-10; Not Available [facility] 3 04:26:23 Abscess of skin and/or subcutan eous tissue 08602273 Completed 201502/19/2019 Problem Code: L02.91; Problem Code Type: ICD-10; Not Available [facility] 3 04:26:23 Screenin g for malignan t neoplasm of breast Completed 201804/21/2022 Problem Code: Z12.39; Problem Code Type: ICD-10; Not Available [facility] 3 04:26:23 Therapeu tic drug monitori ng assay 73363273 Completed 201409/09/2020 Problem Code: Z51.81; Problem Code Type: ICD-10; Not Available [facility] 3 04:26:24 Adult health examinat ion Completed 201602/19/2019 Problem Code: Z00.00; Problem Code Type: ICD-10; MARK HER[address], [place], [address] [facility] 4 15:29:58 Screenin g for malignan t neoplasm of colon Completed 202004/21/2022 Problem Code: Z12.11; Problem Code Type: ICD-10; Not Available [facility] 3 04:26:25 Menopaus e present 150045633 Completed 201002/19/2019 Not Available [facility] 3 04:26:25 Itching of skin 746372111 Completed 202006/01/2022 Problem Code: L29.9; Problem Code Type: ICD-10; Not Available [facility] 3 04:26:26 Abdomina l pain 90841494 Completed 201805/31/2021 Problem Code: R10.9; Problem Code Type: ICD-10; Not Available [facility] 3 04:26:26 Generali zed anxiety disorder 64097917 Completed 201007/18/2023 Not Available [facility] 3 04:26:26 COVID-19 629406398 Completed 202201/03/2024 Agustín Britt null, [facility] 4 19:40:40 Low back pain 613204722 Active [address], [address] 4 15:24:49 History of adenomat ous polyp of colon 338220709 Active 2022 tubular adenoma 2022; recall 7yrs Agustín Britt null, [facility] 4 19:44:46 Arthrode sis of ankle Active [address], [place] [address] , [facility] 4 15:26:51 Subclini wallace hypothyr oidism 40818409 Active [address], [place] [address] , [facility] 4 15:28:16 Hyperpar athyroid ism 45115630 Active [address], [place] [address] , [facility] 4 15:28:18 Follicul ar cysts of skin and subcutan eous tissue 625925488 Active [address], [place] [address] , [facility] 4 15:29:26 Acute urinary tract infectio n 940488962 Active 2023 Mari Sam RN null, [facility] 4 09:48:43 Diarrhea 39487202 Active [address], [place] [address] , [facility] 4 10:04:11 Problem Notes Documentation Provider Name and Address Organization Details Recorded Time Physical Therapist Consult Note : Physical Therapy Initial Eval PATIENT NAME: Lena Alexandre UNIT #: [id number] ADMITTING PROVIDER: ZAYRA PACHECO PRIMARY CARE PROVIDER: Saida Bhatt DATE O F ADMIT: 02/07/24 : 1960 Supervising Provider: Zayra Guerra PT Diagnosis: LBP MD Diagnosis: LBP Weeks Elapsed: week(s) and 0 day(s) Patient Location: Physical Therapy - St Referring Provider: Saida Bhatt Date of Service: February 07, 2024 12:37 pm PT Notes Visit Reasons: pt low back pain Certification period ends: 03/26/24 Subjective: Back is feeling better. I am still having pain with change of position and quick movements. Sometimes with return to standing from sitting. 60-70% improved since start of PT. She continues to have a lot of pain with attempt of long distance walking. She is awaiting new orthotic shoes from [employer] to assist w fused ankle deformity. Objective: 30 sec STS: 8x R knee flexion accommodation to lower left ilium in presence of ankle fusion on left Heel lift applied to inside of left shoe for trail - patient advised on weaning into this removing as necessary as she acclimates to it. Neuro Reeducation: Activities to facilitate re-education of movement, impaired muscle activation and motor control, coordination of movement and stabilizing musculature with dynamic tasks, and techni ques to improve body awareness PPT x 20 hooklying Hooklying: Articulating bridge w adduction ball x 20 Access Code: [email or web address] URL: [email or web address] Date: 02/07/2024 Prepared by: Zayra Guerra Exercises - Overhead Reach on Foam Roll - 2 x daily - 5 x weekly - 2 sets - 15 reps - Supine on Foam Roll Reach and Roll - 2 x daily - 5 x weekly - 2 sets - 15 reps - Bent Knee Fallouts with Alternating Legs - 2 x daily - 5 x weekly - 2 sets - 15 reps - Shoulder Extension with Resistance - 2 x daily - 5 x weekly - 2 sets - 15 reps - Sit to Stand Without Arm Support - 2 x daily - 5 x weekly - 2 sets - 15 reps - Standing Hip Abduction with Counter Support - 2 x daily - 5 x weekly - 2 sets - 15 reps Movement pattern correction - Observed to be sitting in chair multiple times throughout session leaning onto left elbow and into left hip - she even has callus formation on left elbow from this habit.. Advised to attempt midline sitting. Use table or device in right hand to discourage her left side favoring to reduce asymmetrical force strain on back. Assessment: Patient is a 63-year-old female, referred for PT services with the diagnosis of LBP, with clinical signs and symptoms consistent with referred diagnosis due to strain of mechanical lift, in presence of biomechanical influences w lumbopelvic asymmetry and L ankle fusion felt to be contributing to prior existing chronic episodic LBP. Overall much improved, 60-70%, with presentation of movement dysfunction, habitual movement patterns, and core weakness of most obvious need. Todays treatment focused on correction or movement abnormalities and intrinsic core stabilization to reduce abnormal force to back with dynamic movement. She will require continued progression of this program to offer improved stabilization and support to her back, and build of strength, to allow for the best balances support about her back possible, to limit pain with functional demands. PLAN:? Patient to be seen 1 x per week adjusting frequency of visits per patient symptoms and response to treatment.? Patient's treatment will also be provided by a GENERAL PARTNER under my direction, and POC has been reviewed with the GENERAL PARTNER. Treatment to include the following to attend to the above impairments and functional limitations: Therapeutic activities: Activities to improve dynamic activities designed to improve specific functional tasks Neuro Reeducation: Activities to facilitate re-education of movement, impaired muscle activation and motor control, coordination of movement and stabilizing musculature with dynamic tasks, and techni ques to improve body awareness Manual therapy: Hands on manipulation and mobilization to attend to mobility limitations of joints and soft tissues. Therapeutic Procedures: Skilled exercise prescription for ROM, strengthening, and flexibility specific to patients problem Aquatic therapy: Skilled activities within the therapeutic environment of buoyant warm water to offer comfortable resistance to joint movement, help ease pain, swelling, and offer decompression benefits to support joint mobility and proprioceptive challenges. Direct treatment time 45min Total treatment time 45min Units Time 34411 Manual therapy (73325) min Therapeutic Procedures (79336) min Neurological Reeducation (32507) 3 45min Therapeutic Activity (09996) [] []min [] [] []min [] [] []min CC: Dictated by: ZAYRA PACHECO Dictated: 02/07/24 Time: 1237 Date: Time: 7 Transcribed Date: 02/07/24 Transcribed Time: 1236 By: DOT This is privileged, confidential information, intended only for the provider named. Any use or distribution by any person other than this provider is strictly prohibited. If you receive this report in error, please notify us immediately at [phone] and return the original report to us at the address above. Thank you. Tatianna Taylor RN [facility] 02/07/2024 15:53:02 Physical Therapist Consult Note : Physical Therapy Initial Eval PATIENT NAME: Lena Alexandre UNIT #: [id number] ADMITTING PROVIDER: ZAYRA PACHECO PRIMARY CARE PROVIDER: Saida Bhatt DATE O F ADMIT: 02/14/24 : 1960 TREATMENT NOTE Supervising Provider: Zayra Guerra PT Diagnosis: LBP MD Diagnosis: LBP Weeks Elapsed: week(s) and 0 day(s) Patient Location: Physical Therapy - [facility] Referring Provider: Saida Bhatt Date of Service: February 07, 2024 12:37 pm PT Notes Visit Reasons: pt low back pain Certification period ends: 03/26/24 Subjective: Back is feeling better. I am still having pain with change of position and quick movements. Sometimes with return to standing from sitting. 60-70% improved since start of PT. She continues to have a lot of pain with attempt of long distance walking. She is awaiting new orthotic shoes from [employer] to assist w fused ankle deformity. Objective: 30 sec STS: 8x R knee flexion accommodation to lower left ilium in presence of ankle fusion on left Heel lift applied to inside of left shoe for trail - patient advised on weaning into this removing as necessary as she acclimates to it. Neuro Reeducation: Activities to facilitate re-education of movement, impaired muscle activation and motor control, coordination of movement and stabilizing musculature with dynamic tasks, and techni ques to improve body awareness PPT x 20 hooklying Hooklying: Articulating bridge w adduction ball x 20 Access Code: [email or web address] URL: [email or web address] Date: 02/07/2024 Prepared by: Zayra Guerra Exercises - Overhead Reach on Foam Roll - 2 x daily - 5 x weekly - 2 sets - 15 reps - Supine on Foam Roll Reach and Roll - 2 x daily - 5 x weekly - 2 sets - 15 reps - Bent Knee Fallouts with Alternating Legs - 2 x daily - 5 x weekly - 2 sets - 15 reps - Shoulder Extension with Resistance - 2 x daily - 5 x weekly - 2 sets - 15 reps - Sit to Stand Without Arm Support - 2 x daily - 5 x weekly - 2 sets - 15 reps - Standing Hip Abduction with Counter Support - 2 x daily - 5 x weekly - 2 sets - 15 reps Movement pattern correction - Observed to be sitting in chair multiple times throughout session leaning onto left elbow and into left hip - she even has callus formation on left elbow from this habit.. Advised to attempt midline sitting. Use table or device in right hand to discourage her left side favoring to reduce asymmetrical force strain on back. Assessment: Patient is a 63-year-old female, referred for PT services with the diagnosis of LBP, with clinical signs and symptoms consistent with referred diagnosis due to strain of mechanical lift, in presence of biomechanical influences w lumbopelvic asymmetry and L ankle fusion felt to be contributing to prior existing chronic episodic LBP. Overall much improved, 60-70%, with presentation of movement dysfunction, habitual movement patterns, and core weakness of most obvious need. Todays treatment focused on correction or movement abnormalities and intrinsic core stabilization to reduce abnormal force to back with dynamic movement. She will require continued progression of this program to offer improved stabilization and support to her back, and build of strength, to allow for the best balances support about her back possible, to limit pain with functional demands. PLAN:? Patient to be seen 1 x per week adjusting frequency of visits per patient symptoms and response to treatment.? Patient's treatment will also be provided by a GENERAL PARTNER under my direction, and POC has been reviewed with the GENERAL PARTNER. Treatment to include the following to attend to the above impairments and functional limitations: Therapeutic activities: Activities to improve dynamic activities designed to improve specific functional tasks Neuro Reeducation: Activities to facilitate re-education of movement, impaired muscle activation and motor control, coordination of movement and stabilizing musculature with dynamic tasks, and techni ques to improve body awareness Manual therapy: Hands on manipulation and mobilization to attend to mobility limitations of joints and soft tissues. Therapeutic Procedures: Skilled exercise prescription for ROM, strengthening, and flexibility specific to patients problem Aquatic therapy: Skilled activities within the therapeutic environment of buoyant warm water to offer comfortable resistance to joint movement, help ease pain, swelling, and offer decompression benefits to support joint mobility and proprioceptive challenges. Direct treatment time 45min Total treatment time 45min Units Time 15262 Manual therapy (98967) min Therapeutic Procedures (34850) min Neurological Reeducation (16863) 3 45min Therapeutic Activity (45607) [] []min [] [] []min [] [] []min CC: Dictated by: ZARYA PACHECO Dictated: 02/07/24 Time: 1237 Date: Time: 1327 Transcribed Date: 02/07/24 Transcribed Time: 123 By: DOT This is privileged, confidential information, intended only for the provider named. Any use or distribution by any person other than this provider is strictly prohibited. If you receive this report in error, please notify us immediately at [phone] and return the original report to us at the address above. Thank you. MALIK isaac [place] - [facility]. 03/06/2024 14:17:24 Procedures Surgical History None recorded. Imaging Results Imaging Date Name Status LastModified by Organiz ation Details LastModified Time 03/27/2024 MAMMO, screening, bilateral completed [id number] [facility] (Radiology) [address] [facility] [place], [address], 04/29/2024 14:43:41 03/27/2024 DEXA completed [id number] [facility] (Radiology) [address] [facility] [place], [address], 04/29/2024 14:43:33 Procedure Notes None recorded. Medical Equipment None Reported. Allergies Allergen ID Allergen Name Allergen Category Reaction Reaction Severity Criticality Documentation Date Start Date Code Code System Note Provider Name and Address Organization Details Recorded Time 10312 Substance with sulfonami de structure and antibacte rial mechanism of action (substanc e) medicatio n rash Not available Not available 08/31/20232004 27009 8003 SNOMED Agustín De La [facility] 19:39:39 Medications Name Sig Start Date Stop Date Status Note LastModified by Organization Details LastModified Time Refresh Tears 0.5 % eye drops Instill 1-2 drops into eyes 3-4 times/da y 08/06 completed Not Available Not Available Not Available amoxicill in 500 mg capsule tkae 1 cap tid for 7 days 09/16 completed Not Available Not Available Not Available Flomax 0.4 mg capsule 1 qd 03/14 completed Not Available Not Available Not Available atorvasta tin 40 mg tablet TAKE ONE TABLET BY MOUTH EVERY EVENING active Not Available Not Available No t Available ivermecti n 3 mg tablet Take 10 tabs X 1 dose 07/23 completed Not Available Not Available Not Available Percocet 7.5 mg-325 mg tablet 1 CAP qd prn pain 07/14 completed Not Available Not Available Not Available Colace 100 mg capsule 1 .bid 04/01 completed Not Available Not Available Not Available atorvasta tin 20 mg tablet TAKE 1 TABLET BY MOUTH EVERY NIGHT 06/01 completed Not Available Not Available Not Available Percocet 7.5 mg-500 mg tablet 1 CAP qd prn pain 10/01 completed Not Available Not Available Not Available trazodone 50 mg tablet 1-2 hs 05/29 completed Not Available Not Available Not Available cetirizin e 10 mg tablet TAKE ONE TABLET BY MOUTH EVERY DAY active Not Available Not Available No t Available lisinopri l 20 mg-hydroc hlorothia zide 12.5 mg tablet Take 1 tab by mouth daily 2013 active Not Available Not Available Not Avai lable azithromy simon 250 mg tablet Take two tabs by mouth now, then take 1 tab by mouth daily x 4 days 07/21 completed Dental prescrip tion Not Available Not Available Not Available ibuprofen 800 mg tablet Take 1 tab by mouth three times daily as needed 01/06 completed Not Available Not Available Not Available atenolol 100 mg tablet TAKE ONE TABLET BY MOUTH EVERY DAY active Not Available Not Available No t Available Remeron 15 mg tablet 1 TAB QHS 08/16 completed Not Available Not Available Not Available lisinopri l 20 mg tablet Take 1 tab by mouth daily 2013 active Not Available Not Available Not Avai lable alendrona te 70 mg tablet TAKE ONE TABLET BY MOUTH ONCE A WEEK active Not Available Not Available No t Available clonazepa m 0.5 mg tablet 1/2 tab at bedtime as needed for sleep. USE SPARINGL Y! Refill at [facility] only. 10/28 completed Not Available Not Available Not Available Phenergan 25 mg tablet 1 .q 8hours prn nausea 06/01 completed Not Available Not Available Not Available clonazepa m 1 mg tablet 1-2TAB at bedtime 05/18 completed Not Available Not Available Not Available permethri n 5 % topical cream Apply per directio ns, may repeat in 7 days 07/23 completed Not Available Not Available Not Available Protonix 20 mg tablet,de layed release 1 . qd dyspepsi a 07/25 completed Not Available Not Available Not Available penicilli n V potassium 500 mg tablet 1 tab twice daily 01/14 completed Not Available Not Available Not Available Advair Diskus 100 mcg-50 mcg/dose powder for inhalatio n Inhale 1 puff twice a day by inhalati on route as needed. active Using during periods of illness/ exacerba tions. Not Available Not Available Not Available Nexium 40 mg capsule,d elayed release Take 1 by mouth daily 2013 active Not Available Not Available Not Avai lable melatonin 3 mg tablet 2 caps at bedtime prn sleep 10/17 completed Not Available Not Available Not Available ciproflox acin 250 mg tablet Take 1 tablet every 12 hours by oral route. 2023 active Not Available Not Available Not Avai lable prochlorp erazine maleate 10 mg tablet Take 0.5 tablet by mouth as directed Every 6 to 8 hours as needed. 2014 active Not Available Not Available Not Avai lable omeprazol e 40 mg capsule,d elayed release 1 TAB QD 02/25 completed Not Available Not Available Not Available tramadol 50 mg tablet Take 1 tab by mouth twice daily as needed 05/16 completed Not Available Not Available Not Available amitripty line 50 mg tablet 1-2 . hs 03/28 completed Not Available Not Available Not Available acetamino phen 500 mg tablet TAKE ONE TO TWO TABLETS BY MOUTH THREE TIMES A DAY NEEDED 2023 active Not Available Not Available Not Avai lable amoxicill in 500 mg tablet Take one tab by mouth three times a day 02/20 completed Dental prescrip tion Not Available Not Available Not Available Celebrex 200 mg capsule Take 1 by mouth daily dx chronic pain 09/19 completed Not Available Not Available Not Available Bactroban 2 % topical cream ointment three times daily 11/02 completed Not Available Not Available Not Available amitripty line 25 mg tablet 1-2 . 09/12 completed Not Available Not Available Not Available Claritin- D 24 Hour 10 mg-240 mg tablet,ex tended release Take 1 tab by mouth daily 06/18 completed Not Available Not Available Not Available Zoloft 50 mg tablet oral EVERY MORNING 09/14 completed Not Available Not Available Not Available Lice Treatment (permethr in) 1 % topical liquid apply per directio ns, may repeat in 7 days prn 2017 active Not Available Not Available Not Avai lable Celexa 20 mg tablet /4 to 10/23 .qd anxiety 06/21 completed Not Available Not Available Not Available amitripty line 10 mg tablet 1-2 . hs 04/16 completed Not Available Not Available Not Available amlodipin e 10 mg tablet Take 1 tab by mouth daily 04/04 completed Not Available Not Available Not Available benzonata te 100 mg capsule TAKE ONE CAPSULE BY MOUTH THREE TIMES A DAY FOR 10 DAYS 12/04 completed Not Available Not Available Not Available Phenergan 25 mg rectal supposito ry 1 .q 8hours prn nausea 05/14 completed Not Available Not Available Not Available pantopraz ole 40 mg tablet,de layed release TAKE ONE TABLET BY MOUTH EVERY DAY active Not Available Not Available No t Available ferrous sulfate 325 mg (65 mg iron) tablet 1TAB three times daily 10/17 completed Not Available Not Available Not Available WelChol 625 mg tablet Take 3 tabs tablet by mouth daily. 01/04 completed Not Available Not Available Not Available Gentle Laxative (bisacody l) 5 mg tablet,de layed release TAKE 5MG ACCORDIN G TO PROVIDER S INSTRUCT IONS FOR COLONOSC OPY PREP 12/04 completed Not Available Not Available Not Available lisinopri l 10 mg tablet TAKE TWO TABLETS BY MOUTH EVERY DAY 06/01 completed Not Available Not Available Not Available fluoromet holone 0.1 % eye drops,reyna penradhaon SHAKE WELL BEFORE USE--INS TILL 1 DROP IN EACH EYE FOUR TIMES A DAY FOR A WEEK, THEN USE TWO TIMES A DAY FOR A WEEK THEN ONCE DAILY FOR A WEE active Not Available Not Available No t Available lidocaine 5 % topical patch 1 patch to affected area for 12 hours, leave off for 12 hours 06/24 completed Not Available Not Available Not Available oxycodone 5 mg capsule take 1 capsule PO Q4H PRN severe pain 01/06 completed [facility] Not Available Not Available Not Available Advair Diskus 500 mcg-50 mcg/dose powder for inhalatio n 1 bid 05/14 completed Not Available Not Available Not Available Valtrex 1 gram tablet 2TAB bid 10/22 completed Not Available Not Available Not Available sertralin e 25 mg tablet Take 1 tab by mouth daily for mood and anxiety 03/05 completed Not Available Not Available Not Available lisinopri l 20 mg-hydroc hlorothia zide 25 mg tablet Take 1 tab by mouth daily 2013 active Not Available Not Available Not Avai lable mont[facility] [facility] 10 mg tablet TAKE ONE TABLET BY MOUTH EVERY DAY active Not Available Not Available No t Available hydroxyzi ne HCl 25 mg tablet Take 1 tablet by mouth every night as needed 12/02 completed Not Available Not Available Not Available hydrochlo rothiazid e 25 mg tablet Take 1 tab by mouth daily 11/24 completed Not Available Not Available Not Available Nasonex 50 mcg/actua tion [place] 1 spray in each nostril daily 08/10 completed Not Available Not Available Not Available Tylenol-C odeine #3 300 mg-30 mg tablet take once daily as needed for pain 06/21 completed Not Available Not Available Not Available Duragesic 25 mcg/hr transderm al patch 1 q3d 12/06 completed Not Available Not Available Not Available polyethyl bessie glycol 3350 17 gram/dose oral powder TAKE 17 GRAMS DIRECTED BY [facility] OFFICE FOR COLONOSC OPY BOWEL PREP 12/04 completed Not Available Not Available Not Available Anusol-HC 25 mg rectal supposito ry 1SUPP twice daily 11/03 completed Not Available Not Available Not Available celecoxib 100 mg capsule 01/01 completed Not Available Not Available Not Available lisinopri l 40 mg tablet TAKE ONE TABLET BY MOUTH EVERY DAY active Not Available Not Available No t Available fluticaso ne propionat e 50 mcg/actua tion nasal spray,reyna pension SPRAY 1 SPRAY IN EACH NOSTRIL TWO TIMES A DAY active Not Available Not Available No t Available atenolol 50 mg tablet 1.5 qd 05/14 completed Not Available Not Available Not Available Ambien 10 mg tablet 1TAB . hs prn sleep 06/15 completed Not Available Not Available Not Available loratadin e 10 mg tablet Take 1 tab by mouth daily 2016 active Not Available Not Available Not Avai lable Vistaril 50 mg capsule 1 .TID prn N/V 10/11 completed Not Available Not Available Not Available amoxicill in 875 mg-potass ium clavulana te 125 mg tablet 1 tablet by mouth twice a day 01/06 completed Not Available Not Available Not Available Flexeril 10 mg tablet 1TAB tid 04/26 completed Not Available Not Available Not Available Tessalon Perle 100 mg capsule Take 1 capsule 3 times a day by oral route. 12/04 completed Not Available Not Available Not Available Arthritis Pain Relief (capsaici n) 0.025 % topical cream apply to right knee TID 09/09 completed Not Available Not Available Not Available Valtrex 1,000 mg tablet 2 bid 08/30 completed Not Available Not Available Not Available Zetia 10 mg tablet 1 .qd hyperlip idemia 11/22 completed Not Available Not Available Not Available Compressi on Stockings Dx: M25.572 - fused left ankle compress ion 30-40 09/22 completed Not Available Not Available Not Available Cymbalta 30 mg capsule,d elayed release 1 .bid 03/06 completed Not Available Not Available Not Available Sarna Original 0.5 %-0.5 % lotion Apply to skin twice a day 05/[address] King recommdawson ded 05/2020 Not Available Not Available Not Available levalbute rol HFA 45 mcg/actua tion aerosol inhaler INHALE TWO PUFFS BY MOUTH EVERY 6 HOURS NEEDED FOR COUGH / FOR SHORTNES S OF BREATH / WHEEZE 12/04 completed Not Available Not Available Not Available Zanaflex 2 mg capsule take 1-2 capsules three times a day as needed for pain. 06/24 completed Not Available Not Available Not Available Tylenol-C odeine #3 1TAB daily w/lunch back pain 03/08 completed Not Available Not Available Not Available Vitamin D-400 1 . bid 02/07 completed Not Available Not Available Not Available Cholestyr amine 1SCOOP QD 06/13 completed Not Available Not Available Not Available Vitamin D 1TAB . qd 03/10 completed Not Available Not Available Not Available Xopenex inhal q 4-6 h 05/14 completed Not Available Not Available Not Available Arch Supports, Orthotic Orthoped ic shoes 2023 active Could not find exact language for orthoped ic shoes Not Available Not Available Not Available Multivita mins 1 TAB QD 08/12 completed Not Available Not Available Not Available Xopenex HFA 2 P .q 4-6 h , prn cough whee 05/14 completed Not Available Not Available Not Available omega-3 fatty acids-fis h oil 300 mg-1,000 mg capsule take 1 cap by mouth daily 2019 active Not Available Not Available Not Avai lable cholestyr amine-asp artame 4 gram oral powder Take 4 mg by mouth every morning. 2023 active Not Available Not Available Not Avai lable Kapidex 30 mg capsule, delayed release 1 qd 01/31 completed Not Available Not Available Not Available Dexilant 60 mg capsule, delayed release 1 qd 01/03 completed Not Available Not Available Not Available Probiotic 1 daily as needed 03/13 completed Not Available Not Available Not Available Rolanda Allergy 180 mg tablet Take 1 tab by mouth daily 2016 active Not Available Not Available Not Avai lable lidocaine 5 % topical ointment apply to affected area four times daily 2018 active Not Available Not Available Not Avai lable potassium chloride ER 20 mEq tablet,ex tended release 1 tab BID 08/06 completed Not Available Not Available Not Available lidocaine HCl 4 % topical cream Apply up to three times a day as needed. 05/22/ 2024 09/06 /2024 completed Not Available Not Available Not Available dicyclomi ne 10 mg tablet 1 at bedtime 07/20 completed Not Available Not Available Not Available Narcan 4 mg/actuat ion nasal spray administ er 1 syringe full in nostril as needed for excessiv e sedation 04/04 completed Not Available Not Available Not Available turmeric 450 mg-turmer ic root extract 50 mg capsule 07/23 completed Not Available Not Available Not Available tramadol 100 mg tablet 1TAB bid back pain 04/17 completed Not Available Not Available Not Available Paxlovid 150 mg-100 mg tablets in a dose pack (Renal Dose) TAKE ONE TABLET OF THE NIRMATRE LVIR 150MG AND ONE TABLET OF THE RITONAVI R 100MG TABLET, ADMINIST ERED TOGETHER , TWO TIMES A DAY FOR 5 DAYS 12/04 completed Not Available Not Available Not Available Vitals Date Recorded Body height Body temperature Oxygen saturation Oxygen saturation in Arterial blood by Pulse oximetry Heart rate Body mass index (BMI) Body weight Systolic blood pressure Diastolic blood pressure Provider Name and Address Organization Details Last Updated DateTime 4 153.67 cm 97.3 [degF] 98 % 98 % 70 /min 32 kg/m2 19903.4 9 g 140 mm[Hg] 92 mm[Hg] Tatianna Tayolr RN [facility] 4 15:52:16 Date Recorded Body height Body mass index (BMI) Body weight Body temperature Oxygen saturation Oxygen saturation in Arterial blood by Pulse oximetry Heart rate Respiratory rate Systolic blood pressure Diastolic blood pressure Provider Name and Address Organization Details Last Updated DateTime 4 153.67 cm 32.5 kg/m2 26617.1 1 g 97.4 [degF] 95 % 95 % 69 /min 18 /min 128 mm[Hg] 80 mm[Hg] LUIS LIMON RN [facility] 4 15:02:33 Date Recorded Body height Systolic blood pressure Diastolic blood pressure Provider Name and Address Organization Details Last Updated DateTime 02/18/2024 153.67 cm 134 mm[Hg] 76 mm[Hg] MONET OLIVER CMA [facility] 02/18/2024 09:40:02 Date Recorded Body height Body mass index (BMI) Body weight Body temperature Oxygen saturation Oxygen saturation in Arterial blood by Pulse oximetry Heart rate Systolic blood pressure Diastolic blood pressure Provider Name and Address Organization Details Last Updated DateTime 4 153.67 cm 33.3 kg/m2 01788.2 g 96.9 [degF] 98 % 98 % 62 /min 130 mm[Hg] 84 mm[Hg] Tatianna Taylor RN [facility] 12:03:02 Date Recorded Body height Body mass index (BMI) Body weight Body temperature Heart rate Systolic blood pressure Diastolic blood pressure Provider Name and Address Organization Details Last Updated DateTime 4 153.67 cm 32.3 kg/m2 82192.5 2 g 97.8 [degF] 72 /min 122 mm[Hg] 84 mm[Hg] Mari Sam RN [facility] 09:34:28 Social History Question Answer Notes LastModified by Organizat ion Details LastModified Time Tobacco Smoking Status Never Smoker LUIS LIMON RN [facility], [facility] 01/08/2024 15:06:25 Would You Say That, In General, Your Health Is Fair Information not available 03/12/2024 Women Aged 18-50 - Would You Like To Become In The Next Year? (Female Patients Only) No Information not available 03/12/2024 How Often Does Anyone, Including Family, Physically Hurt You? Never Information not available 03/12/2024 How Often Does Anyone, Including Family, Insult Or Talk Down To You? Rarely Information no t available 03/12/2024 How Often Does Anyone, Including Family, Threaten You With Harm? Never Information not available 03/12/2024 How Often Does Anyone, Including Family, Scream Or Curse At You? Rarely Information not available 03/12/2024 Within The Past 12 Months, You Worried That Your Food Would Run Out Before You Got Money To Buy More. Never True Information n ot available 03/12/2024 Within The Past 12 Months, The Food You Bought Just Didn't Last And You Didn't Have Money To Get More. Never True Information not available 03/12/2024 How Hard Is It For You To Pay For The Very Basics Like Food, Housing, Medical Care, And Heating? Would You Say It Is: Not Hard At All Information not available 03/12/2024 In The Past 12 Months, Has Lack Of Reliable Transportation Kept You From Medical Appointments, Meetings, Work Or From Getting Things Needed For Daily Living? No Information not available 03/12/2024 What Is Your Housing Situation Today? I Have Housing. Information not available 03/12/2024 How Often In The Past Year Have You Used Marijuana (including Smoking, Vaping, Dabbing, Or Edibles)? 4 Or More Times Per Week Information not available 03/12/2024 How Often In The Past Year Have You Used Prescription Medications That Were Not Prescribed To You? Never Information not available 03/12/2024 How Often In The Past Year Have You Taken Your Own Prescription Medication More Than The Way It Was Prescribed Or For Different Reasons Than Its Intended Purpose? Never Information not available 03/12/2024 How Often In The Past Year Have You Used Other Drugs (for Example, Heroin, Cocaine, Meth, Salvia, Inhalants)? Never Information not available 03/12/2024 Have You Ever Used IV Drugs? Yes Information not available 03/12/2024 Date Of Most Recent SBINS 03/12/2024 Information not available 03/12/2024 What Was The Date Of Your Most Recent Tobacco Screening? 06/27/2024 [email or web address] Information n ot available 06/27/2024 Has Tobacco Cessation Counseling Been Provided? Yes Information not available 03/12/2024 On What Date Was Tobacco Cessation Counseling Provided? 06/27/2024 [email or web address] Information not available 06/27/2024 Do You Or Have You Ever Used Any Other Forms Of Tobacco Or Nicotine? No [email or web address] Information not available 01/08/2024 Sex: Female Functional Status None recorded. Mental Status None recorded. Family History Relationship Description Onset Age of this Age Resolved Age Notes Brother Family history of Hypertension Sister Family history of Hypertension Notes:*Problem: Mother: dece ased Sisters: 3 sisters Brothers: 1 brother Children: none Family History of: Hypertension: yes Hyperlipidemia: yes Coronary heart disease: yes Diabetes mellitus: yes Breast cancer: no Colorectal cancer: no Medical History No medical history recorded. Gynecological HistoryNo gynecological history recorded. Obstetrics History GPAL:G 0 P 0 0 0 0 Immunizations Vaccine Type Date Status Provider Name and Address Organization Details Recorded Time COVID-19, mRNA, LNP-S, PF, janel-sucrose, 30 mcg/0.3 mL 01/09/2024 completed MARK HERNANDEZ [address], [place], [address], [facility] 01/09/2024 13:37:59 Td (adult), 2 Lf tetanus toxoid, preservative free, adsorbed 01/29/2018 completed Not Available [facility] 08/31/2023 05:17:27 Tdap 07/31/2007 completed Not Available [facility] 05:17:27 Td(adult) unspecified formulation 06/22/1997 completed Not Available [facility] 08/31/2023 05:17:27 Influenza, split virus, trivalent, preservative 08/10/2016 completed Not Available [facility] 08/31/2023 05:17:27 Influenza, split virus, trivalent, preservative 09/06/2015 completed Not Available [facility] 08/31/2023 05:17:27 Influenza, split virus, quadrivalent, PF 07/01/2020 completed Not Available [facility] 08/31/2023 05:17:27 Influenza, split virus, quadrivalent, PF 09/22/2019 completed Not Available [facility] 08/31/2023 05:17:27 Influenza, split virus, quadrivalent, PF 10/03/2021 completed Not Available [facility] 08/31/2023 05:17:27 Influenza, split virus, quadrivalent, preservative 07/23/2018 completed Not Available [facility] 08/31/2023 05:17:27 Influenza, split virus, quadrivalent, preservative 09/17/2017 completed Not Available [facility] 08/31/2023 05:17:27 zoster recombinant 03/13/2019 completed Not Available [facility] 08/31/2023 05:17:28 zoster recombinant 07/23/2018 completed Not Available [facility] 08/31/2023 05:17:28 Influenza, high-dose, quadrivalent, PF 09/01/2022 completed Not Available [facility] 08/31/2023 05:17:28 COVID-19, mRNA, LNP-S, PF, 100 mcg/0.5mL dose or 50 mcg/0.25mL dose 01/10/2021 completed Not Available [facility] 08/31/2023 05:17:28 COVID-19, mRNA, LNP-S, PF, 100 mcg/0.5mL dose or 50 mcg/0.25mL dose 02/07/2021 completed Not Available [facility] 08/31/2023 05:17:28 COVID-19, mRNA, LNP-S, PF, 100 mcg/0.5mL dose or 50 mcg/0.25mL dose 10/03/2021 completed Not Available [facility] 08/31/2023 05:17:28 COVID-19, mRNA, LNP-S, bivalent, PF, 30 mcg/0.3 mL dose 09/01/2022 completed Not Available [facility] 08/31/20 05:17:28 pneumococcal polysaccharide PPV23 10/22/1998 completed Not Available [facility] 2022 05:17:28 pneumococcal polysaccharide PPV23 10/22/1999 completed Not Available [facility] 2022 05:17:28 Past Encounters Encounter ID Performer Location Encounter Start Date Encounter Closed Date Diagnosis/Indication Diagnosis SNOMED-CT Code Diagnosis ICD10 Code [id number] SAIDA BHATT [address] [address] 12/04/2023 15:39:43 12/04/2023 16:24:22 Posterior rhinorrhea 05580010 R09.82 Low back pain 076917246 M54.50 Senile osteoporosis 1804 0001 M81.0 [id number] SAIDA BHATT [address] [address] 01/08/2024 14:55:05 01/08/2024 15:36:17 Active or passive immunization 813713136 Z23 Essential hypertension 36299588 I10 Cat bite 600707580 W55.0 1XA History of arthrodesis of ankle 4235008366 9105 Z98.1 [id number] MONET OLIVER CMA [address] [address] 02/18/2024 09:27:22 02/18/2024 09:45:51 Adult health examination 761521838 Z00.00 Chronic ki dney disease stage 3 116948272 N18.30 Essential hypertension 87401110 I10 Hyperlipidemia 68124998 E78.5 Hypomagnesemia 128468501 E83.42 Hypothyroidism 18440777 E03.9 Senile osteoporosis 1804 0001 M81.0 [id number] SAIDA BHATT [address] [address] 03/12/2024 11:52:59 03/12/2024 14:09:52 Screening for malignant neoplasm of breast 390846277 Z12.39 Senile osteoporosis 1804 0001 M81.0 History of arthrodesis of ankle 0860601302 9105 Z98.1 Allergic rhinitis 832433 04 J30.9 Chronic pain 98553787 G8 9.29 Hypomagnesemia 752112829 E83.42 Hypokalemia 63485458 E87 .6 Subclinica l hypothyroidism 54217287 E02 Chronic ki dney disease stage 3 500951142 N18.30 Follicular cysts of skin and subcutaneous tissue 163670709 L72.9 Hyperparathyroidism 6699 9008 E21.3 Essential hypertension 17408495 I10 Adult heal th examination 685434019 Z00.00 [id number] SAIDA BHATT [address] [address] 06/27/2024 09:16:30 06/27/2024 10:03:14 Acute urinary tract infection 870368375 N39.0 Diarrhea 03693978 R19.7 Health Concerns Section Related Observation LastModified by Organization Detai ls LastModified Time None Recorded Concern Status LastModified by Organization Details LastModified Time None Recorded Advance Directives Directive None Recorded Payers Encounter Date Sequence Insurance Name Policy Number Policy [employer] Covered Member ID [employer] Member ID Guarantor Name 12/04/2023 1 [place] [employer] Lena Alexandre [id number] Lena Brambilablanc 12/04/2023 2 [facility] (MEDICAID) Lena Brambilablanc [id number] Lena Brambilablanc 01/08/2024 1 [place] [facility] Lena Alexandre [id number] Lena Brambilablanc 01/08/2024 2 [facility] (MEDICAID) Lena Brambilablanc [id number] Lena Brambilablanc 02/18/2024 1 [place] [facility] Lena Alexandre [id number] Lena Brambilablanc 02/18/2024 2 FOR LIFE () Lena Heller Alexandre [id number] Lena Heller Alexandre 03/12/2024 2 FOR LIFE () Lena Heller Alexandre [id number] Lena Heller Alexandre 03/12/2024 1 [employer] (MEDICARE REPLACEMENT/A DVANTAGE - PPO) Lena Brambilablanc [id number] Lena Brambilablanc 06/27/2024 2 FOR LIFE () Lena Heller Alexandre [id number] Lean Brambilablanc 06/27/2024 1 [employer] (MEDICARE REPLACEMENT/A DVANTAGE - PPO) Lena Brambilablanc [id number] Lena Brambilablanc Notes Date Note Type Note Provider Name and Address Organization Details Recorded Time 12/04/2023 text/html HPI Notes: Has rudy kern having right sided back pain for about 1 month, aggravated by sitting for a period of time or bending foreward. Ears have been popping a lot. She hasn't noticed changes in her hearing. She had COVID-09 October. She is also experiencing a lot of clear rhinorrhea. She has not had any hearing changes. She has not been taking fluticasone. MARK HERNANDEZ [address], [place], [address], [facility]. 12/05/2023 15:31:35 01/08/2024 text/html HPI Notes: Hypertension follow-up. She would like evaluation of her left forearm, was bit by cat a couple of weeks ago. She states there are lumps under the skin, that are decreasing in size. She states that after the bite the area was significantly bruised. She also would like to replace her orthotic shoes. She has worn orthotic shoes since accident resulting in fusion of the left ankle in 2000. [address], [place], [address], [facility]. 02/06/2024 13:55:35 03/12/2024 text/html HPI Notes: Abdi lim is here today for annual exam. [address], [place], [address], [facility] 03/12/2024 15:35:18 06/27/2024 text/html HPI Notes: The patient, Lena, presents with a chief complaint of lower abdominal cramping that started on Sunday. She reports no change in diarrhea. She is unsure if she is experiencing increased urination, as she typically urinates frequently. She denies any pain during urination but mentions mild back pain. Lena describes the cramping as being localized in the lower abdomen and extending to the sides of her back. She denies any fever but reports experiencing chills, alternating between feeling hot and cold. She denies any chest pain or palpitations. She mentions that the abdominal pain has moved slightly higher today but is not significantly higher. The patient reports a history of chronic diarrhea. She has tried fiber supplements such as Metamucil and Benefiber without significant improvement. Lena has a history of gallbladder surgery and was previously on a cholesterol medication, possibly colestyramine, for loose stools. [address], [place], [address], [facility]. 06/27/2024 10:07:20 OBGyn Episode No OBEpisode recorded.
--- OUTSIDE RECORDS SUMMARY | 2024-06-27 18:20 | XMS_ITS | Encounter Summary ---
[place] [address] Care Team Providers Care Supervisor [employer] Name Role Phone Miller Destinee SHARONA Primary Care Provider [phone] Encounter Details Date Type Department Care Team (Latest Contact Info) Description 02/27/2024 2:40 PM EDT Laboratory Appointment Lab [address] [place] [id number] Nephrolithiasis; Hypertension, unspecified type; Stage 3 chronic kidney disease, unspecified whether stage 3a or 3b CKD Social History Tobacco Use Types Packs/Day Years [...] Name Priority Date/Time Associated Diagnosis Comments HC URINALYSIS ROUTINE Routine 02/27/2024 4:00 PM EDT Nephrolithiasis Hypertension, unspecified type Stage 3 chronic kidney disease, unspecified whether stage 3a or 3b CKD PROTEIN/CREATININE RATIO, URINE Routine 02/27/2024 4:00 PM EDT Nephrolithiasis Hypertension, unspecified type Stage 3 chronic kidney disease, unspecified whether stage 3a or 3b CKD U ALBUMIN/CRE RATIO Routine 02/27/2024 4 :00 PM EDT Nephrolithiasis Hypertension, unspecified type Stage 3 chronic kidney disease, unspecified whether stage 3a or 3b CKD PTH Routine 02/27/2024 2:45 PM EDT Nephrolithiasis Hypertension, unspecified type Stage 3 chronic kidney disease, unspecified whether stage 3a or 3b CKD HEMOGRAM Routine 02/27/2024 2:45 PM EDT Nephrolithiasis Hypertension, unspecified type Stage 3 chronic kidney disease, unspecified whether stage 3a or 3b CKD DIFFERENTIAL, AUTOMATED Routine 02/27/2024 2:45 PM EDT Nephrolithiasis Hypertension, unspecified type Stage 3 chronic kidney disease, unspecified whether stage 3a or 3b CKD VITAMIN D, 25-HYDROXY Routine 02/27/2024 2:45 PM EDT Nephrolithiasis Hypertension, unspecified type Stage 3 chronic kidney disease, unspecified whether stage 3a or 3b CKD CBC (WITH DIFF) Routine 02/27/2024 2:45 PM EDT Nephrolithiasis Hypertension, unspecified type Stage 3 chronic kidney disease, unspecified whether stage 3a or 3b CKD URIC ACID Routine 02/27/2024 2:45 PM EDT Nephrolithiasis Hypertension, unspecified type Stage 3 chronic kidney disease, unspecified whether stage 3a or 3b CKD PHOSPHORUS Routine 02/27/2024 2:45 PM EDT Nephrolithiasis Hypertension, unspecified type Stage 3 chronic kidney disease, unspecified whether stage 3a or 3b CKD ALBUMIN LEVEL Routine 02/27/2024 2:45 PM EDT Nephrolithiasis Hypertension, unspecified type Stage 3 chronic kidney disease, unspecified whether stage 3a or 3b CKD BASIC METABOLIC PANEL Routine 02/27/2024 2:45 PM EDT Nephrolithiasis Hypertension, unspecified type Stage 3 chronic kidney disease, unspecified whether stage 3a or 3b CKD documented in this encounter Results * _Urinalysis with microscopic (02/27/2024 4:00 PM EDT) Glucose, Urine Dipstick Negative Negative mg/dL [facility] Protein, Urine Dipstick Negative Negative mg/dL [facility] Bilirubin, Urine Dipstick Negative Negative mg/dL [facility] Comment: Clinical correlation required for positive Urine Bilirubin results as false positive may occur with some drugs and drug related products. If a false positive is suspected a serum total bilirubin should be considered if clinically indicated. Urobilinogen, Urine Dipstick Normal Normal mg/dL [facility] pH, Urn (dipstick) 5.0 5.0 - 8.0 [facility] Blood, Urine Dipstick Negative Negative mg/dL [facility] Ketone, Urine Dipstick Negative Negative mg/dL [facility] Nitrite, Urine Dipstick Negative Negative [facility] Leukocytes, Urine Dipstick Negative Negative mcL [facility] Appearance, Urine Dipstick Clear Clear [facility] Specific [place] Urine Automated 1.019 1.005 - 1.030 [facility] Color, Urine Dipstick Yellow Yellow [facility] RBC, Urine 0 0 - 4 /HPF [facility] WBC, Urine 2 0 - 5 /HPF [facility] Squamous Epithelial Cells Raw Data, Urine 4 <=4 /HPF [facility] Hyaline Casts, Urine 2 0 - 2 /LPF [facility] Urine 02/27/2024 4:00 PM EDT 02/27/2024 4:44 PM EDT Narrative Resulting Agency Comment Spec In Lab Kriss Florian APRN URINE ORD ERABLES [facility] [place] [address] * U Albumin/Cre Ratio (02/27/2024 4:00 PM EDT) Albumin / Creatinin Ratio, Urine 2 0 - 29 mcg/mg Cr [facility] Comment: Reference Ranges: <30 mcg/mg: Normal 30-300 mcg/mg: Moderately increased albuminuria.* >300 mcg/mg: Severely increased albuminuria. * ACEI or ARB recommended if diabetic; suggested if BP>130/80 without diabetes ACEI or ARB strongly recommended if diabetic; recommended if BP>130/80 without diabetes Two of three specimens collected within a 3 to 6 month period should be abnormal before considering a patient to have albuminuria. Transient causes: exercise, fever, infection, CHF, marked hyperglycemia or hypertension. Persistent albuminuria indicates CKD and is an independent risk factor for ASCVD. ADA Standards of Medical Care in Diabetes-2016; KDIGO: Kidney [employer] Supplements (2012) 2, 357? 362 Albumin, Urine 3.1 mg/L [facility] Creatinine, Urine 126 mg/dL [facility] Urine 02/27/2024 4:00 PM EDT 02/27/2024 4:44 PM EDT Narrative Resulting Agency Comment Spec In Lab Kriss Florian APRN URINE ORD ERABLES Performing Organization Address City/[facility]/ZIP Co de Phone Number [facility] [address] * Protein/Creatinine Ratio, urine (02/27/2024 4:00 PM EDT) Creatinine, Urine 126 mg/dL [facility] Protein, Urine 8 0 - 12 mg/dL [facility] Protein / Creatinine Ratio, Urine <0.1 ratio [facility] Urine 02/27/2024 4:00 PM EDT 02/27/2024 4:44 PM EDT Narrative Resulting Agency Comment Spec In Lab Kriss Florian APRN URINE ORD ERABLES [facility] [place] [address] * Differential, Automated (02/27/2024 2:45 PM EDT) Neutrophil % 57.4 % [facility] Neutrophil Absolute 4.70 1.70 - 6.10 x10(3)/[facility] Lymph % 26.4 % [facility] Lymphocytes Abs 2.2 0.9 - 3.2 x10(3)/[facility] Monocyte % 11.0 % [facility] Monocyte Abs 0.9 0.3 - 0.9 x10(3)/[facility] Eos % 4.2 % [facility] Eosinophils Abs 0.3 0.0 - 0.4 x10(3)/[facility] Basophil % 0.6 % [facility] Baso Absolute 0.0 0.0 - 0.1 x10(3)/[facility] Immature Gran % 0.40 % [facility] Comment: Immature granulocytes(IG's)percentage and absolute count will include metamyelocytes, myelocytes, and promyelocytes. Blood smears from CBCs yielding IG's will be scanned manually for concordance. If this scan disagrees with the automated IG or if promyelocytes are noted, a manual differential will be performed. Immature Gran Absolute 0.03 0.00 - 0.04 x10(3)/[facility] Blood 02/27/2024 2:45 PM EDT 02/27/2024 2:51 PM EDT Narrative Resulting Agency Comment Spec In Lab Kriss Florian DETACHER HEMATOLOG Y ORDERABLES [facility] [address] * (ABNORMAL) Hemogram (02/27/2024 2:45 PM EDT) [facility] White Blood Cell 8.2 4.0 - 9.5 x10(3)/[facility] Red Blood Cell 4.11 4.00 - 5.21 x10(6)/[facility] Hemoglobin 11.8 11.7 - 15.5 g/dL [facility] Hematocrit 37.4 35.7 - 45.8 % [facility] Mean Cell Volume 91.0 82.6 - 94.4 [facility] Mean Cell Hemoglobin 28.7 27.1 - 32.0 pg [facility] Mean Cell Hemoglobin Concentration 31.6(L) 31.7 - 35.0 g/dL [facility] Platelet 232 145 - 357 x10(3)/mc L [facility] RDW Standard Deviation 44.7 37.0 - 46.0 [facility] RDW coefficient of variation 13.3 11.5 - 14.1 % [facility] Mean Platelet Volume 10.4 7.6 - 12.9 fL [facility] NRBC% auto 0.0 % [facility] NRBC Absolute 0.000 0.000 - 0.000 x10(3)/mc L [facility] Blood 02/27/2024 2:45 PM EDT 02/27/2024 2:51 PM EDT Narrative Resulting Agency Comment Spec In Lab Kriss Florian DETACHER HEMATOLOG Y ORDERABLES Performing Organization Address City/[facility]/ZIP Co de Phone Number [facility] [place] [address] * Albumin Level (02/27/2024 2:45 PM EDT) Albumin 4.1 3.2 - 5.2 g/dL [facility] Blood 02/27/2024 2:45 PM EDT 02/27/2024 2:51 PM EDT Narrative Resulting Agency Comment Spec In Lab Kriss Florian DETACHER CHEMISTRY ORDERABLES Performing Organization Address City/[facility]/ZIP Co de Phone Number [facility] [place] [address] * (ABNORMAL) Basic Metabolic Panel (non-fasting) (02/27/2024 2:45 PM EDT) Glucose 91 65 - 199 mg/dL [facility] Comment:Diabetes: >=200 mg/d L plus symptoms Blood Urea Nitrogen 21(H) 8 - 18 mg/dL [facility] Creatinine 1.27(H) 0.70 - 1.20 mg/dL [facility] Sodium 142 135 - 145 mmol/L [facility] Potassium 4.1 3.5 - 5.0 mmol/L [facility] Comment: Please note: ??Patients with WBC >100,000 may have falsely elevated Potassium levels. ??For accurate Potassium quantification in these patients send serum separator tube (gold top) for subsequent determinations. ??Contact the Clinical Chemistry Laboratory if there are any questions. Chloride 107 98 - 107 mmol/L [facility] Carbon Dioxide 24 22 - 31 mmol/L [facility] Anion Gap 11 5 - 15 mmol/L [facility] Calcium 8.6 8.5 - 10.5 mg/dL [facility] Est Glomerular Filtration Rate 48(L) >=60 mL/min/1. 73 m?? [facility] Comment: This patient's estimated GFR was calculated using the 2020 CKD-EPI equation. The estimated GFR can vary from the measured GFR by up to 30% in the absence of rapidly changing kidney function. Assessment of the estimated GFR is not appropriate when creatinine concentrations are rapidly changing. For clinical situations in which a more precise estimate of GFR is necessary, consider alternative methods of GFR estimation such as a 24-hour urine creatinine clearance. Assignment of CKD stage 1-5 for patients with an eGFR near the transition point between stages may be based on clinical assessment of muscle mass and symptoms in addition to eGFR. Blood 02/27/2024 2:45 PM EDT 02/27/2024 2:51 PM EDT Narrative Resulting Agency Comment Spec In Lab Kriss W Laws-Harry DETACHER CHEMISTRY ORDERABLES [facility] [place] [address] * Vitamin D, 25-Hydroxy (02/27/2024 2:45 PM EDT) Vitamin D Total 25 OH 39 21 - 100 ng/mL [facility] Vit D Interp Sufficient [facility] Blood 02/27/2024 2:45 PM EDT 02/27/2024 2:51 PM EDT Narrative Resulting Agency Comment Spec In Lab Kriss Keyes Chiqui LOOMISN CHEMISTRY ORDERABLES Performing Organization Address City/[facility]/ZIP Co de Phone Number [facility] [place] [address] * Uric acid (02/27/2024 2:45 PM EDT) Uric Acid 6.3 2.5 - 6.5 mg/dL [facility] Blood 02/27/2024 2:45 PM EDT 02/27/2024 2:51 PM EDT Narrative Resulting Agency Comment Spec In Lab Kriss Keyes Chiqui LOOMISN CHEMISTRY ORDERABLES Performing Organization Address City/[facility]/ZIP Co de Phone Number [facility] [place] [address] * Phosphorus (02/27/2024 2:45 PM EDT) Phosphorus 3.9 2.5 - 4.5 mg/dL [facility] Blood 02/27/2024 2:45 PM EDT 02/27/2024 2:51 PM EDT Narrative Resulting Agency Comment Spec In Lab Kriss Keyes Chiqui DETACHER CHEMISTRY ORDERABLES [facility] [place] [address] * (ABNORMAL) PTH (02/27/2024 2:45 PM EDT) Parathyroid Hormone 96(H) 15 - 65 pg/mL [facility] Blood 02/27/2024 2:45 PM EDT 02/27/2024 2:51 PM EDT Narrative Resulting Agency Comment Spec In Lab Kriss Florian DETACHER CHEMISTRY ORDERABLES [facility] [place] [address] documented in this encounter Visit Diagnoses Diagnosis Nephrolithiasis Calculus of kidney Hypertension, unspecified type Stage 3 chronic kidney disease, unspecified whether stage 3a or 3b CKD documented in this encounter Care Teams Supervisor Ac[employer] Relationship Specialty Start Date End Date Destinee Bhatt APRN [address] [place] [address] PCP - General Family Medicine 08/23/20 documented as of this encounter
--- OUTSIDE RECORDS SUMMARY | 2024-06-27 18:20 | XMS_ITS | Encounter Summary ---
[place] [address] Care Team Providers Care Door Core Assembler Name Role Phone Destinee Bhatt APRN Primary Care Provider [phone] Encounter Details Date Type Department Care Team ([facility] st Contact Info) Description 09/18/2022 Telephone [place]ph[place] [phone] Karen Chatterjee Social History Tobacco Use Types Packs/Day Years [...] documented as of this encounter Miscellaneous Notes * Telephone Encounter - Karen Chatterjee - 09/18/2022 12:25 PM EST LM for pt to call an neeraj. Apt. documented in this encounter Plan of Treatment Not on file documented as of this encounter Visit Diagnoses Not on filedocumented in this encounter Care Teams Door Core Assembler Relationship Specialty Start Date End Date Destinee Bhatt APRN [address] [place] [address] PCP - General Family Medicine 08/23/20 documented as of this encounter
--- OUTSIDE RECORDS SUMMARY | 2024-06-27 18:20 | XMS_ITS | Encounter Summary ---
[place] [address] Care Team Providers Care Aviation Mechanic Name Role Phone Miller Destinee SHARONA Primary Care Provider [phone] Encounter Details Date Type Department Care Team (Latest Contact Info) Description 02/20/2023 1:00 PM EDT Laboratory Appointment Lab [address] [place] [id number] Stage 3 chronic kidney disease, unspecified whether [...] Associated Diagnosis Comments HC URINALYSIS ROUTINE Routine 02/20/2023 1:01 PM EDT Stage 3 chronic kidney disease, unspecified whether stage 3a or 3b CKD PROTEIN/CREATININE RATIO, URINE Routine 02/20/2023 1:01 PM EDT Stage 3 chronic kidney disease, unspecified whether stage 3a or 3b CKD PTH Routine 02/20/2023 1:00 PM EDT Stage 3 chronic kidney disease, unspecified whether stage 3a or 3b CKD HEMOGRAM Routine 02/20/2023 1:00 PM EDT Stage 3 chronic kidney disease, unspecified whether stage 3a or 3b CKD DIFFERENTIAL, AUTOMATED Routine 02/20/2023 1:00 PM EDT Stage 3 chronic kidney disease, unspecified whether stage 3a or 3b CKD IRON AND TIBC Routine 02/20/2023 1:00 PM EDT Stage 3 chronic kidney disease, unspecified whether stage 3a or 3b CKD VITAMIN D, 25-HYDROXY Routine 02/20/2023 1:00 PM EDT Stage 3 chronic kidney disease, unspecified whether stage 3a or 3b CKD HC VENIPUNCTURE Routine 02/20/2023 1:00 PM EDT Stage 3 chronic kidney disease, unspecified whether stage 3a or 3b CKD PHOSPHORUS Routine 02/20/2023 1:00 PM EDT Stage 3 chronic kidney disease, unspecified whether stage 3a or 3b CKD FERRITIN Routine 02/20/2023 1:00 PM EDT Stage 3 chronic kidney disease, unspecified whether stage 3a or 3b CKD ALBUMIN LEVEL Routine 02/20/2023 1:00 PM EDT Stage 3 chronic kidney disease, unspecified whether stage 3a or 3b CKD BASIC METABOLIC PANEL Routine 02/20/2023 1:00 PM EDT Stage 3 chronic kidney disease, unspecified whether stage 3a or 3b CKD documented in this encounter Results * (ABNORMAL) _Urinalysis with microscopic (02/20/2023 1:01 PM EDT) Glucose, Urine Dipstick Negative Negative mg/dL [facility] Protein, Urine Dipstick Trace(A) Negative mg/dL [facility] Bilirubin, Urine Dipstick Negative Negative mg/dL [facility] Comment: Clinical correlation required for positive Urine Bilirubin results as false positive may occur with some drugs and drug related products. If a false positive is suspected a serum total bilirubin should be considered if clinically indicated. Urobilinogen, Urine Dipstick Normal Normal mg/dL [facility] pH, Urn (dipstick) 5.5 5.0 - 8.0 [facility] Blood, Urine Dipstick Negative Negative mg/dL [facility] Ketone, Urine Dipstick Trace(A) Negative mg/dL [facility] Nitrite, Urine Dipstick Negative Negative [facility] Leukocytes, Urine Dipstick Negative Negative mcL [facility] Appearance, Urine Dipstick Clear Clear [facility] Specific [place] Urine Automated 1.020 1.005 - 1.030 [facility] Color, Urine Dipstick Yellow Yellow [facility] RBC, Urine 1 0 - 4 /HPF [facility] WBC, Urine 1 0 - 5 /HPF [facility] Squamous Epithelial Cells Raw Data, Urine 1 <=4 /HPF [facility] Hyaline Casts, Urine 1 0 - 2 /LPF [facility] Urine 02/20/2023 1:01 PM EDT 02/20/2023 1:13 PM EDT Narrative Resulting Agency Comment Spec In Lab Kriss Florian APRN URINE ORD ERABLES Performing Organization Address City/[facility] Co de Phone Number [facility] [place] [address] * Protein/Creatinine Ratio, urine (02/20/2023 1:01 PM EDT) Creatinine, Urine 141 mg/dL [facility] Protein, Urine 11 0 - 12 mg/dL [facility] Protein / Creatinine Ratio, Urine <0.1 ratio [facility] Urine 02/20/2023 1:01 PM EDT 02/20/2023 1:13 PM EDT Narrative Resulting Agency Comment Spec In Lab Kriss Florian APR[place] [address] * (ABNORMAL) Differential, Automated (02/20/2023 1:00 PM EDT) Neutrophil % 65.4 % [facility] Neutrophil Absolute 6.17(H) 1.70 - 6.10 x10(3)/mc L [facility] Lymph % 22.2 % [facility] Lymphocytes Abs 2.1 0.9 - 3.2 x10(3)/ L [facility] Monocyte % 9.7 % [facility] Monocyte Abs 0.9 0.3 - 0.9 x10(3)/[facility] Eos % 2.0 % [facility] Eosinophils Abs 0.2 0.0 - 0.4 x10(3)/[facility] Basophil % 0.4 % [facility] Baso Absolute 0.0 0.0 - 0.1 x10(3)/[facility] Immature Gran % 0.30 % [facility] Comment: Immature granulocytes(IG's)percentage and absolute count will include metamyelocytes, myelocytes, and promyelocytes. Blood smears from CBCs yielding IG's will be scanned manually for concordance. If this scan disagrees with the automated IG or if promyelocytes are noted, a manual differential will be performed. Immature Gran Absolute 0.03 0.00 - 0.04 x10(3)/ L [facility] Blood 02/20/2023 1:00 PM EDT 02/20/2023 1:11 PM EDT Narrative Resulting Agency Comment Spec In Lab Kriss Florian HERBARIUM CURATOR HEMATOLOG Y ORDERABLES Performing Organization Address City/State/[facility] Co de Phone Number [facility] [address] * (ABNORMAL) Hemogram (02/20/2023 1:00 PM EDT) White Blood Cell 9.4 4.0 - 9.5 x10(3)/[facility] Red Blood Cell 4.35 4.00 - 5.21 x10(6)/ L [facility] Hemoglobin 12.1 11.7 - 15.5 g/dL [facility] Hematocrit 40.1 35.7 - 45.8 % [facility] Mean Cell Volume 92.2 82.6 - 94.4 fL [facility] Mean Cell Hemoglobin 27.8 27.1 - 32.0 pg [facility] Mean Cell Hemoglobin Concentration 30.2(L) 31.7 - 35.0 g/dL [facility] Platelet 263 145 - 357 x10(3)/mc L [facility] RDW Standard Deviation 47.7(H) 37.0 - 46.0 fL [facility] RDW coefficient of variation 14.0 11.5 - 14.1 % [facility] Mean Platelet Volume 11.2 7.6 - 12.9 fL [facility] NRBC% auto 0.0 % [facility] NRBC Absolute 0.000 0.000 - 0.000 x10(3)/mc L [facility] Blood 02/20/2023 1:00 PM EDT 02/20/2023 1:11 PM EDT Narrative Resulting Agency Comment Spec In Lab Kriss Florian HERBARIUM CURATOR HEMATOLOG Y ORDERABLES Performing Organization Address City/State/[facility] Co de Phone Number [facility] [place] [address] * (ABNORMAL) Basic Metabolic Panel (non-fasting) (02/20/2023 1:00 PM EDT) Glucose 95 65 - 199 mg/dL [facility] Comment:Diabetes: >=200 mg/d L plus symptoms Blood Urea Nitrogen 18 8 - 18 mg/dL [facility] Creatinine 1.11 0.70 - 1.20 mg/dL [facility] Sodium 142 135 - 145 mmol/L [facility] Potassium 3.9 3.5 - 5.0 mmol/L [facility] Comment: Please note: ??Patients with WBC >100,000 may have falsely elevated Potassium levels. ??For accurate Potassium quantification in these patients send serum separator tube (gold top) for subsequent determinations. ??Contact the Clinical Chemistry Laboratory if there are any questions. Chloride 105 98 - 107 mmol/L [facility] Carbon Dioxide 25 22 - 31 mmol/L [facility] Anion Gap 12 5 - 15 mmol/L [facility] Calcium 8.5 8.5 - 10.5 mg/dL [facility] Est Glomerular Filtration Rate 56(L) >=60 mL/min/1. 73 m?? [facility] Comment: This patient's estimated GFR [...] and symptoms in addition to eGFR. Blood 02/20/2023 1:00 PM EDT 02/20/2023 1:11 PM EDT Narrative Resulting Agency Comment Spec In Lab Kriss Florian APRN CHEMISTRY ORDERABLES Performing Organization Address [facility]/ZIP Co de Phone Number [facility] [place] [address] * (ABNORMAL) Ferritin (02/20/2023 1:00 PM EDT) Ferritin 12(L) 30 - 400 ng/mL [facility] Comment: Pediatric reference ranges not verified at [facility], interpret with caution. Reference ranges for females greater than 50 years of age approach values for men, i.e., 30-400 ng/mL. Blood 02/20/2023 1:00 PM EDT 02/20/2023 1:11 PM EDT Narrative Resulting Agency Comment Spec In Lab Kriss Florian APRN CHEMISTRY ORDERABLES Performing Organization Address City/[facility]/ZIP Co de Phone Number [facility] [place] [address] * (ABNORMAL) Iron and TIBC (02/20/2023 1:00 PM EDT) Iron 53 30 - 150 mcg/dL [facility] TIBC 357 250 - 450 mcg/dL [facility] Iron Saturation 15(L) 20 - 50 % [facility] Blood 02/20/2023 1:00 PM EDT 02/20/2023 1:11 PM EDT Narrative Resulting Agency Comment Spec In Lab Kriss Stephy Chiqui TABOR CHEMISTRY ORDERABLES Performing Organization Address City/[facility]/[place] [address] * Vitamin D, 25-Hydroxy (02/20/2023 1:00 PM EDT) Vitamin D Total 25 OH 33 21 - 100 ng/mL [facility] Vit D Interp Sufficient [facility] Blood 02/20/2023 1:00 PM EDT 02/20/2023 1:11 PM EDT Narrative Resulting Agency Comment Spec In Lab Kriss Stephy Chiqui TABOR CHEMISTRY ORDERABLES Performing Organization Address [facility] Co de Phone Number [facility] [place] [address] * (ABNORMAL) PTH (02/20/2023 1:00 PM EDT) Parathyroid Hormone 127(H) 15 - 65 pg/mL [facility] Blood 02/20/2023 1:00 PM EDT 02/20/2023 1:11 PM EDT Narrative Resulting Agency Comment Spec In Lab Kriss Keyes Chiqui TABOR CHEMISTRY ORDERABLES Performing Organization Address City/[facility]/ZIP Co de Phone Number [facility] [place] [address] * Phosphorus (02/20/2023 1:00 PM EDT) Phosphorus 3.5 2.5 - 4.5 mg/dL [facility] Blood 02/20/2023 1:00 PM EDT 02/20/2023 1:11 PM EDT Narrative Resulting Agency Comment Spec In Lab Krissgaldino Florian APRN CHEMISTRY ORDERABLES [facility] [place] [address] * Albumin Level (02/20/2023 1:00 PM EDT) Albumin 4.4 3.2 - 5.2 g/dL [facility] Blood 02/20/2023 1:00 PM EDT 02/20/2023 1:11 PM EDT Narrative Resulting Agency Comment Spec In Lab Kriss Florian HERBARIUM CURATOR CHEMISTRY ORDERABLES [facility] [place] [address] documented in this encounter Visit Diagnoses Diagnosis Stage 3 chronic kidney disease, unspecified whether stage 3a or 3b CKD documented in this encounter Care Teams Aviation Mechanic Relationship Specialty Start Date End Date Destinee Bhatt APRN [address] [place] [address] PCP - General Family Medicine 08/23/20 documented as of this encounter
--- OUTSIDE RECORDS SUMMARY | 2024-06-27 18:20 | XMS_ITS | Encounter Summary ---
[place] [address] Care Team Providers Care Indirect Fire Infantryman Name Role Phone Destinee Bhatt APRN Primary Care Provider [phone] Encounter Details Date Type Department Care Team (Latest Contact Info) Description 03/17/2021 3:00 PM EDT Office Visit [place] [phone] Benitez Adames MD [facility] [place] [address] Stage 3 chronic kidney disease, unspecified whether [...] EDT documented in this encounter Progress Notes * Benitez Adames MD - 03/17/2021 3:00 PM EDT PATIENT: Lena Alexandre : 1960 Interval history: Patient reports overall doing well. She completed her COVID-19 vaccine series without trouble. She denies recent changes in her health. Still unable to participate in water therapy.Pain managed with acetaminophen. Denies recent concern for nephrolithiasis Assessment/Plan: #Chronic Kidney disease Stage?? III/a1: CR??1.23mg/dl??->??eGFR 48ml/min stable within patient's range. ??Historically no significant proteinuria per spot.?Known history of nehrolithiasis. History of??significant NSAID use.?External renal ultrasound from October 2019 reported as [...] needed. ??? fluticasone propionate (FLONASE) 50 mcg/actuation [place], Suspension SPRAY 1 2 SPRAYS INTO EACH [...] 7 days. Take in AM with full glassof water, on an empty stomach. Do not lie down for 30 min. ??? cetirizine (ZYRTEC) 10 mg Tablet Take 10 mg by mouth daily. ??? atorvastatin (LIPITOR) 20 mg Tablet Take 20 mg by mouth daily. ??? Wymkhaf-Ooxxcosrd-Bggt 333-133-5 mg Tablet Take by mouth daily. ??? atenolol (TENORMIN) 100 mg Tablet Take 100 mg by mouth daily. ??? [DISCONTINUED] NEXIUM 40 mg Capsule, Delayed Release(E.C.) Take 40 mg by mouth daily. ??? Mometasone (NASONEX) 50 mcg/Actuation [place] by Nasal route as needed. ??? acetaminophen [...] HFA) 45 mcg/Actuation inhaler (Patient taking differently: Inhale into the lungs every 6 hours as needed.) [...] Benitez Adames MD, MPH Section of Nephrology #[id number] documented in this encounter Plan of Treatment Not on file documented as of this encounter Visit Diagnoses Diagnosis Stage 3 chronic kidney disease, unspecified whether stage 3a or 3b CKD documented in this encounter Care Teams Indirect Fire Infantryman Relationship Specialty Start Date End Date Destinee Bhatt APRN [address] [place] [address] PCP - General Family Medicine 08/23/20 documented as of this encounter
--- OUTSIDE RECORDS SUMMARY | 2024-06-27 18:20 | XMS_ITS | Encounter Summary ---
Author Organization [facility] [place] [address] Care Team Providers Care Home Decorator Name Role Phone Marko Duffy DNP Primary Care Provider [phone] Encounter Details Date Type Department Care Team (Latest Contact Info) Description 04/07/2020 3:00 PM EDT Office Visit Neph[place] [phone] Benitez Adames MD [facility] [place] [address] CKD (chronic kidney disease) stage 3, GFR 30-59 ml/min; Hypertensive kidney disease with CKD stage III Social History Tobacco Use Types Packs/Day Years [...] 154.9 cm (5' 0.98) 04/07/2020 2:09 PM ED T Body Mass Index 37.96 04/07/2020 2:09 PM EDT documented in this encounter Progress Notes * Benitez Adames MD - 04/07/2020 3:00 PM [...] begin home blood pressure monitoring so we maybetter understand her trend. Depending on these readings [...] Take 20 mg by mouth daily. ??? Uwcarun-Ahxyttksj-Azvx 333-133-5 mg Tablet Take by mouth daily. ??? atenolol (TENORMIN) 100 mg Tablet Take 100 mg by mouth daily. ??? NEXIUM 40 mg Capsule, Delayed Release(E.C.) Take 40 mg by mouth daily. ??? prochlorperazine (COMPAZINE) 10 mg Tablet every 8 hours as needed. ??? Mometasone (NASONEX) 50 mcg/Actuation [place] by Nasal route as needed. ??? acetaminophen [...] Benitez Adames MD, MPH Section of Nephrology #[id number] documented in this encounter Plan of Treatment Not on file documented as of this encounter Results * (ABNORMAL) Basic Metabolic Panel (non-fasting) (03/17/2021 2:13 PM EDT) Glucose 105 65 - 199 mg/dL [facility] Comment:Diabetes: >=200 mg/d L plus symptoms Blood Urea Nitrogen 23(H) 8 - 18 mg/dL [facility] Creatinine 1.23(H) 0.70 - 1.20 mg/dL [facility] Sodium 143 135 - 145 mmol/L [facility] Potassium 4.2 3.5 - 5.0 mmol/L [facility] Comment: Please note: ??Patients with WBC >100,000 may have falsely elevated Potassium levels. ??For accurate Potassium quantification in these patients send serum separator tube (gold top) for subsequent determinations. ??Contact the Clinical Chemistry Laboratory if there are any questions. Chloride 106 98 - 107 mmol/L [facility] Carbon Dioxide 26 22 - 31 mmol/L [facility] Anion Gap 11 5 - 15 mmol/L [facility] Calcium 9.0 8.5 - 10.5 mg/dL [facility] Est Glomerular Filtration Rate 48(L) >=60 mL/min/1. 73 m?? [facility] [...] In Lab Benitez Adames MD CHEMISTRY ORDERABLES [facility] [place] [address] documented in this encounter Visit Diagnoses Diagnosis CKD (chronic kidney disease) stage 3, GFR 30-59 ml/min Chronic kidney disease, Stage III (moderate) Hypertensive kidney disease with CKD stage III Unspecified hypertensive kidney disease with chronic kidney disease stage I through stage IV, or unspecified documented in this encounter Care Teams Home Decorator Relationship Specialty Start Date End Date Marko Duffy DNP PCP - General Family Medicine 07/10/19 08/22/20 documented as of this encounter
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
--- OUTSIDE RECORDS SUMMARY | 2024-06-27 18:20 | XMS_ITS | Encounter Summary ---
Author Organization [facility] [place] [address] Care Team Providers Care Deputy Sheriff Bailiff Name Role Phone MillerDestinee SHARONA Primary Care Provider [phone] Encounter Details Date Type Department Care Team (Latest Contact Info) Description 09/07/2023 2:00 PM EST Office Visit [place] [id number] Kriss Florian [employer] [facility] [place] [address] Stage 3a chronic kidney disease (Primary Dx); Hypertension, unspecified type; Chronic obstructive pulmonary disease, unspecified COPD type; Hx of multiple trauma; Acute renal disease; Nephrolithiasis Social History Tobacco Use Types Packs/Day Years [...] Sign Reading Time Taken Comments Blood Pressure 132/77 09/07/2023 1:41 PM EST Pulse 70 09/07/2023 1:41 PM EST Temperature - - Respiratory Rate - - Oxygen Saturation 98% 09/07/2023 1:41 PM EST Inhaled Oxygen Concentration - - Weight 75.8 kg (167 lb 3.2 oz) 09/07/2023 1:41 P M EST Height - - Body Mass Index 31.59 02/20/2023 1:10 PM EDT documented in this encounter Progress Notes * Kriss Florian APRN - 09/07/2023 2:00 PM EST Images from the original note were not included. [facility] NEPHROLOGY/HYPERTENSION CLINIC FOLLOW-UP NOTE [id number] ID: 63 y.o.year-old female for follow up of CKD. Past Medical History: Patient Active Problem List Diagnosis Code Reflux [id number] Nephrolithiasis N20.0 Liver disease K76.9 Hypertension I10 Anxiety F41.9 Depression F32.A Hypercholesterolemia E78.00 GERD (gastroesophageal reflux disease) K21.9 Asthma J45.909 Hyperlipidemia E78.5 Hx of multiple trauma Z87.828 Acute renal disease N28.9 Allergic reaction T78.40XA Allergic rhinitis J30.9 Anemia D64.9 Backache M54.9 Bilateral leg pain M79.604, M79.605 Cholelithiasis without obstruction K80.20 Chronic abdominal pain R10.9, G89.29 Chronic pruritus L29.9 COPD (chronic obstructive pulmonary disease) J44.9 Creatinine elevation R79.89 Drug eruption L27.0 Fatigue R53.83 Fracture of left distal radius S52.502A History of colonoscopy Z98.890 History of cholecystectomy Z90.49 History of vertebral stress fracture Z87.312 Hypokalemia E87.6 Hypomagnesemia E83.42 Insomnia G47.00 Left ankle pain M25.572 Obesity E66.9 Opioid dependence in remission F11.21 Osteoarthritis of right knee M17.11 Osteoporosis M81.0 Screening for colon cancer Z12.11 Subclinical hypothyroidism E03.8 Tenesmus R19.8 Tubular adenoma of colon D12.6 Outpatient Encounter Medications as of 09/07/2023 Medication Sig Dispense Refill capsaicin (Zostrix) 0.025 % Cream Three times a day loratadine (Claritin) 10 mg Tablet Take 10 mg by mouth daily. atorvastatin (Lipitor) 40 mg tablet Take 40 mg by mouth every evening. lisinopriL (Zestril) 40 mg tablet Take 40 mg by mouth daily. montelukast (Singulair) 10 mg Tablet as needed. fluticasone propionate (FLONASE) 50 mcg/actuation [place], Suspension SPRAY 1 2 SPRAYS INTO EACH NOSTRIL ONCE A DAY pantoprazole EC (Protonix) 40 mg Tablet, Delayed Release (E.C.) TAKE 1 TABLET BY MOUTH DAILY atenolol (TENORMIN) 100 mg Tablet Take 100 mg by mouth daily. acetaminophen (TYLENOL) 500 mg tablet Take 1,000 mg by mouth every 6 hours as needed. ALBUTEROL INHL Inhale 2 puffs into the lungs. As directed/as needed fluticasone-salmeterol (ADVAIR DISKUS) 250-50 mcg/dose diskus inhaler Inhale 1 puff into the lungs 2 times daily. MULTI-VITAMIN ORAL Take 1 tablet by mouth daily. Levalbuterol Tartrate (XOPENEX HFA) 45 mcg/Actuation inhaler [DISCONTINUED] bisacodyl EC (Dulcolax) 5 mg Tablet, Delayed Release (E.C.) Once [DISCONTINUED] celecoxib (CeleBREX) 200 mg capsule Take 1 capsule by mouth daily. [DISCONTINUED] clonazePAM (KlonoPIN) 1 mg tablet 0.5 mg. [DISCONTINUED] esomeprazole (NexIUM) [address] capsule Take 1 capsule by mouth daily. [DISCONTINUED] polyethylene glycoL (Miralax) 17 gram/dose Powder Once [DISCONTINUED] Advair Diskus 100-50 mcg/dose Disk with Device USES PRN [DISCONTINUED] cetirizine (ZYRTEC) 10 mg Tablet Take 10 mg by mouth daily. [DISCONTINUED] Inosizh-Hcakaoqnk-Bpqf 333-133-5 mg Tablet Take by mouth daily. prochlorperazine (COMPAZINE) 10 mg Tablet every 8 hours as needed. [DISCONTINUED] Mometasone (NASONEX) 50 mcg/Actuation Day by Nasal route as needed. No facility-administered encounter medications on file as of 09/07/2023. Allergies Allergen Reactions Hydrochlorothiazide Other Reaction(s): nausea, dizzy Oxycodone Hcl Other Reaction(s): Itching Oxycodone-Acetaminophen Itching Sulfa (Sulfonamide Antibiotics) Hives Aspirin House Dust Headaches, Asthma Zoloft [Sertraline] Trazodone Dizziness, lightheaded S: The patient stated she has been doing well with the exception of her chronic pains which she has been working with PT/OT 1 day a week to managed. She also endorses using Tylenol, Marijuana edibles and lidocaine topical creams which also help. Energy level has been good and she denies any lightheadedness or dizziness, headaches, SOB, chest pain/pressure. Appetite has been good but her water intake she stated is limited she tends to drink more coffee throughout the day, she also denies any changes in her urination pattern, colour or frequency. She further denies any hospitalization, surgeries or new diagnosis since out last encounter. Use of NSAIDs:Denies use Herbal supplements: Marijuana edibles Home BP: Denies checking O: Vitals: 09/07/23 1341 BP: 132/77 BP Location (NBP): Left arm Patient Position: Sitting BP Cuff Sizes: Large Adult (32-43 cm) Pulse: 70 SpO2: 98% Weight: 75.8 kg (167 lb 3.2 oz) General: Well appearing female in NAD, ambulant, alert cooperative with exam. HEENT: Sclera white. Mucous membranes moist. No lymphadenopathy. CV: S1 and S2. HR regular. JVP not elevated. Resp: Lungs clear with no crackles or wheezes, respirations non labored. Abd: Soft. + BS, no bruit, non tender. Ext: Warm, no cyanosis, no edema. Skin: No rashes. Neuro: Intact. No asterixis. Psych: Mood appropriate Labs: Recent Results (from the past 72 hour(s)) Phosphorus Result Value Ref Range Phosphorus 4.2 2.5 - 4.5 mg/dL PTH Result Value Ref Range PTH 75 (H) 15 - 65 pg/mL Uric acid Result Value Ref Range Uric Acid 6.0 2.5 - 6.5 mg/dL Vitamin D, 25-Hydroxy Result Value Ref Range 25-OH Vit D Total 32 21 - 100 ng/mL 25-OH Vit D Interp Sufficient Basic Metabolic Panel (non-fasting) Result Value Ref Range Glucose Lvl 113 65 - 199 mg/dL BUN 16 8 - 18 mg/dL Creatinine 1.19 0.70 - 1.20 mg/dL Sodium 143 135 - 145 mmol/L Potassium 3.7 3.5 - 5.0 mmol/L Chloride 107 98 - 107 mmol/L CO2 25 22 - 31 mmol/L Anion Gap 11 5 - 15 mmol/L Calcium 8.7 8.5 - 10.5 mg/dL Estimated GFR 51 (L) >=60 mL/min/1.73 m?? Albumin Level Result Value Ref Range Albumin 4.4 3.2 - 5.2 g/dL Hemogram Result Value Ref Range WBC 8.7 4.0 - 9.5 x10(3)/mcL RBC 4.20 4.00 - 5.21 x10(6)/mcL Hemoglobin 12.1 11.7 - 15.5 g/dL Hematocrit 37.9 35.7 - 45.8 % MCV 90.2 82.6 - 94.4 fL MCH 28.8 27.1 - 32.0 pg MCHC 31.9 31.7 - 35.0 g/dL Platelets 223 145 - 357 x10(3)/mcL RDWSD 45.6 37.0 - 46.0 fL RDWCV 13.8 11.5 - 14.1 % MPV 11.1 7.6 - 12.9 fL nRBC % Auto 0.0 % nRBC Abs Auto 0.000 0.000 - 0.000 x10(3)/mcL Differential, Automated Result Value Ref Range Neutrophils % 63.7 % Neutr Abs (ANC) 5.54 1.70 - 6.10 x10(3)/mcL Lymphocytes % 22.7 % Lymphocytes Abs 2.0 0.9 - 3.2 x10(3)/mcL Monocytes % 7.6 % Monocyte Abs 0.7 0.3 - 0.9 x10(3)/mcL Eosinophils % 5.3 % Eosinophils Abs 0.5 (H) 0.0 - 0.4 x10(3)/mcL Basophils % 0.5 % Basophils Abs 0.0 0.0 - 0.1 x10(3)/mcL Immature Gran % 0.20 % [place] Gran Abs 0.02 0.00 - 0.04 x10(3)/mcL Protein/Creatinine Ratio, urine Result Value Ref Range U Creatinine 150 mg/dL U Protein Ran 15 (H) 0 - 12 mg/dL Prot/Cre Ratio <0.1 ratio _Urinalysis with microscopic Result Value Ref Range Glucose UA Negative Negative mg/dL Protein UA Negative Negative mg/dL Bilirubin UA Negative Negative mg/dL Urobilinogen UA Normal Normal mg/dL pH UA 5.5 5.0 - 8.0 Blood UA Negative Negative mg/dL Ketones UA Negative Negative mg/dL Nitrite UA Negative Negative Leukocytes UA Negative Negative mcL Appearance UA Clear Clear Spec [place] UA 1.020 1.005 - 1.030 Color UA Yellow Yellow RBC UA 1 0 - 4 /HPF WBC UA 2 0 - 5 /HPF Squam Epith UA 5 (H) <=4 /HPF Hyaline Cast UA 3 (H) 0 - 2 /LPF U Albumin/Cre Ratio Result Value Ref Range Alb/Cr Ratio, Random 3 0 - 29 mcg/mg Cr U Albumin Conc, Random 5.1 mg/L U Creatinine 150 mg/dL Creatinine (mg/dL) Date Value 09/07/2023 1.19 02/20/2023 1.11 03/17/2021 1.23 (H) 04/07/2020 1.13 08/21/2019 1.28 (H) 08/03/2010 0.76 A/P: Lena Alexandre is a 63 y.o. year old female seen today for follow up of CKD. CKD stage 3a likely secondary to nephrolithiasis and requiring lithotripsy in 2009 and prior intense NSAID use. Renal function is stable however there is a noted slight dip. She has been doing fairly well despite her chronic pains which she has been addressing with PT/OT. Hydration is a challenge for her as she stated coffee is her go to, adequate water intake reviewed given her prior history of nephrolithiasis. Blood pressure sub optimal and she is euvolemic on assessment. No proteinuria, anemia, acidosis, sodium and potassium within normal limits and her PTH is trendingdown. Risk factors for worsening renal function reviewed. Discussed importance of good blood pressure control, adequate hydration, and avoidance of NSAIDs. -Avoid NSAIDs -Target BP <130/80 -Continue Lisinopril 40mgs and atenolol 100mgs daily -We discussed weight loss and utilization of DASH diet to further help to achieve BP target -Recommended monitoring of home BP and keeping logs to communicate with nephrology 2. Return to clinic 6 months with labs or sooner if needed for new or worsening symptoms Encouraged her to let me know if she has any questions or concerns in the interim. 35 minutes spent seeing the patient, reviewing the chart, and coordination of care. Kriss Florian APRN [facility] 2[facility], Electric Switch Tester [address] [place] [address] CC: Destinee Bhatt APRN @[email or web address]@ documented in this encounter Plan of Treatment Not on file documented as of this encounter Results * (ABNORMAL) Protein/Creatinine Ratio, urine (09/07/2023 1:24 PM EST) Creatinine, Urine 150 mg/dL [facility] Protein, Urine 15(H) 0 - 12 mg/dL [facility] Protein / Creatinine Ratio, Urine <0.1 ratio [facility] Urine 09/07/2023 1:24 PM EST 09/07/2023 1:34 PM EST Narrative Resulting Agency Comment Spec In Lab Kriss Florian APRN URINE ORD ERABLES [facility] [place] [address] * U Albumin/Cre Ratio (09/07/2023 1:24 PM EST) Albumin / Creatinin Ratio, Urine 3 0 - 29 mcg/mg Cr [facility] Comment: Reference Ranges: <30 mcg/mg: [...] Supplements (2012) 2, 357? 362 Albumin, Urine 5.1 mg/L [facility] Creatinine, Urine 150 mg/dL [facility] Urine 09/07/2023 1:24 PM EST 09/07/2023 1:34 PM EST Narrative Resulting Agency Comment Spec In Lab Kriss Keyes LawsSophie HOUSE WRECKER URINE ORD ERABLES Performing Organization Address City/[facility]/ZIP Co de Phone Number [facility] [place] [address] * (ABNORMAL) _Urinalysis with microscopic (09/07/2023 1:24 PM EST) Glucose, Urine Dipstick Negative Negative mg/dL [facility] Protein, Urine Dipstick Negative Negative mg/dL [facility] Bilirubin, Urine Dipstick Negative Negative mg/dL [facility] Comment: Clinical correlation required for positive Urine Bilirubin results as false positive may occur with some drugs and drug related products. If a false positive is suspected a serum total bilirubin should be considered if clinically indicated. Urobilinogen, Urine Dipstick Normal Normal mg/dL [facility] pH, Urn (dipstick) 5.5 5.0 - 8.0 [facility] Blood, Urine Dipstick Negative Negative mg/dL [facility] Ketone, Urine Dipstick Negative Negative mg/dL [facility] Nitrite, Urine Dipstick Negative Negative [facility] Leukocytes, Urine Dipstick Negative Negative mcL [facility] Appearance, Urine Dipstick Clear Clear [facility] Specific [place] Urine Automated 1.020 1.005 - 1.030 [facility] Color, Urine Dipstick Yellow Yellow [facility] RBC, Urine 1 0 - 4 /HPF [facility] WBC, Urine 2 0 - 5 /HPF [facility] Squamous Epithelial Cells Raw Data, Urine 5(H) <=4 /HPF [facility] Hyaline Casts, Urine 3(H) 0 - 2 /LPF [facility] Urine 09/07/2023 1:24 PM EST 09/07/2023 1:34 PM EST Narrative Resulting Agency Comment Spec In Lab Kriss Keyes LawsSophie HOUSE WRECKER URINE ORD ERABLES Performing Organization Address City/[facility]/ZIP Co de Phone Number [facility] [place] [address] * Phosphorus (09/07/2023 12:40 PM EST) Phosphorus 4.2 2.5 - 4.5 mg/dL [facility] Blood 09/07/2023 12:4 0 PM EST 09/07/2023 12:58 PM EST Narrative Resulting Agency Comment Spec In Lab Kriss Keyes Chiqui HOUSE WRECKER CHEMISTRY ORDERABLES [facility] [place] [address] * (ABNORMAL) PTH (09/07/2023 12:40 PM EST) Parathyroid Hormone 75(H) 15 - 65 pg/mL [facility] Blood 09/07/2023 12:4 0 PM EST 09/07/2023 12:58 PM EST Narrative Resulting Agency Comment Spec In Lab Kriss Keyes Chiqui HOUSE WRECKER CHEMISTRY ORDERABLES Performing Organization Address City/[facility]/ZIP Co de Phone Number [facility] [place] [address] * Uric acid (09/07/2023 12:40 PM EST) Uric Acid 6.0 2.5 - 6.5 mg/dL [facility] Blood 09/07/2023 12:4 0 PM EST 09/07/2023 12:58 PM EST Narrative Resulting Agency Comment Spec In Lab Kriss Keyes Chiqui HOUSE WRECKER CHEMISTRY ORDERABLES [facility] [place] [address] * Vitamin D, 25-Hydroxy (09/07/2023 12:40 PM EST) Vitamin D Total 25 OH 32 21 - 100 ng/mL [facility] Vit D Interp Sufficient [facility] Blood 09/07/2023 12:4 0 PM EST 09/07/2023 12:58 PM EST Narrative Resulting Agency Comment Spec In Lab Kriss Florian APRN CHEMISTRY ORDERABLES [facility] [address] [place] [address] * (ABNORMAL) Basic Metabolic Panel (non-fasting) (09/07/2023 12:40 PM EST) Glucose 113 65 - 199 mg/dL [facility] Comment:Diabetes: >=200 mg/d L plus symptoms Blood Urea Nitrogen 16 8 - 18 mg/dL [facility] Creatinine 1.19 0.70 - 1.20 mg/dL [facility] Sodium 143 135 - 145 mmol/L [facility] Potassium 3.7 3.5 - 5.0 mmol/L [facility] Comment: Please note: ??Patients with WBC >100,000 may have falsely elevated Potassium levels. ??For accurate Potassium quantification in these patients send serum separator tube (gold top) for subsequent determinations. ??Contact the Clinical Chemistry Laboratory if there are any questions. Chloride 107 98 - 107 mmol/L [facility] Carbon Dioxide 25 22 - 31 mmol/L [facility] Anion Gap 11 5 - 15 mmol/L [facility] Calcium 8.7 8.5 - 10.5 mg/dL [facility] Est Glomerular Filtration Rate 51(L) >=60 mL/min/1. 73 m?? [facility] Comment: This patient's estimated GFR [...] and symptoms in addition to eGFR. Blood 09/07/2023 12:4 0 PM EST 09/07/2023 12:58 PM EST Narrative Resulting Agency Comment Spec In Lab Kriss Florian HOUSE WRECKER CHEMISTRY ORDERABLES Performing Organization Address City/[facility]/ZIP Co de Phone Number [facility] [place] [address] * Albumin Level (09/07/2023 12:40 PM EST) Albumin 4.4 3.2 - 5.2 g/dL [facility] Blood 09/07/2023 12:4 0 PM EST 09/07/2023 12:58 PM EST Narrative Resulting Agency Comment Spec In Lab Kriss Florian HOUSE WRECKER CHEMISTRY ORDERABLES Performing Organization Address City/[facility] [place] [address] documented in this encounter Visit Diagnoses Diagnosis Stage 3a chronic kidney disease- Primary Hypertension, unspecified type Chronic obstructive pulmonary disease, unspecified COPD type Hx of multiple trauma Personal history of other injury Acute renal disease Unspecified disorder of kidney and ureter Nephrolithiasis Calculus of kidney documented in this encounter Care Teams Deputy Sheriff Bailiff Relationship Specialty Start Date End Date Destinee Bhatt APRN [address] [place] [address] PCP - General Family Medicine 08/23/20 documented as of this encounter
--- OUTSIDE RECORDS SUMMARY | 2024-06-27 18:20 | XMS_ITS | Encounter Summary ---
[place] [address] Care Team Providers Care Prom Burn Off Operator Name Role Phone Marko Duffy DNP Primary Care Provider [phone] Encounter Details Date Type Department Care Team (Latest Contact Info) Description 11/25/2019 1:00 PM EST Office Visit [place]phrology [place] [phone] Benitez Adames MD [facility] [place] [address] CKD (chronic kidney disease) stage 3, GFR [...] 154.9 cm (5' 0.98) 11/25/2019 12:[address] Body Mass Index 36.49 11/25/2019 12:15 PM EST documented in this encounter Progress Notes * Benitez Adames MD - 11/25/2019 1:00 PM EST PATIENT: Lena Alexandre : 1960 Interval history: Patient reports overall doing well. She has recently stopped hydrochlorothiazide due to low potassium. She is taking potassium supplement. She has a recent diagnosis of osteoporosisand inquires about bisphosphonate use. Assessment/Plan: #Chronic Kidney [...] Take 20 mg by mouth daily. ??? Sdfxneb-Accawbied-Xdti 333-133-5 mg Tablet Take by mouth daily. [...] as needed. ??? Mometasone (NASONEX) 50 mcg/Actuation [place] by Nasal route as needed. ??? acetaminophen [...] Benitez Adames MD, MPH Section of Nephrology #[id number] documented in this encounter Plan of Treatment Scheduled Orders Name Type Priority Associated Diagnoses Orde r Schedule Basic Metabolic Panel (non-fasting) Lab Routine CKD (chronic kidney disease) stage 3, GFR 30-59 ml/min Expected: 02/23/2020, Expires: 11/24/2020 documented as of this encounter Visit Diagnoses Diagnosis CKD (chronic kidney disease) stage 3, GFR 30-59 ml/min Chronic kidney disease, Stage III (moderate) Hypertensive kidney disease with CKD stage III Unspecified hypertensive kidney disease with chronic kidney disease stage I through stage IV, or unspecified documented in this encounter Care Teams Prom Burn Off Operator Relationship Specialty Start Date End Date Marko Duffy DNP PCP - General Family Medicine 07/10/19 08/22/20 documented as of this encounter
--- OUTSIDE RECORDS SUMMARY | 2024-06-27 18:20 | XMS_ITS | Continuity of Care Document ---
Author Organization [place] [facility] Address [address] [place] [address] Assessment No assessment recorded. Plan of Treatment Reminders Order Date Submit Date Provider Last Modified By Organization Details Last Modified Time Details Appointments Acute 20 2023 09:40A M Not available Not available Not available Office Visit 30 2023 10:00A M Not available Not available Not available Lab culture, urine + sensitivi ty 2023 024 [email or web address] [facility] (Registration ), [address] [place] [address] Dr, [place], [address], 06/27/2024 10:23:54 urinalysi s, dipstick 2023 024 [email or web address] [facility] [[email or web address]], [address] [place] [address], [phone], 06/27/2024 10:23:54 Referral None recorded. Procedures None recorded. Surgeries None recorded. Imaging None recorded. Medication Orders cholestyr amine-asp artame 4 gram oral powder 2023 [facility], [address] [place], [address], 06/27/2024 09:59:42 ciproflox acin 250 mg tablet 2023 024 [facility], [address] [place], [address], 06/27/2024 09:59:42 Patient TargetsNo targets recorded. Patient InstructionsNo instructions recorded. Reason for Referral Physical Therapist Referral for Low back pain Referring Physician: Saida Bhatt, Family Medicine, Encounter Date: 12/04/2023 Results Created Date Observation Date Name Description Value Unit Range Abnormal Flag Note LastModifiedBy Organization Detail LastModifiedTime 06/27/20 24 06/27/2024 urina lysis , dipst ick Leukocytes Modera te Not Available [address], [address], 06/27/2024 09:53:19 06/27/20 24 06/27/2024 urina lysis , dipst ick Nitrite positi ve Not Available [address], [address], 06/27/2024 09:53:19 06/27/20 24 06/27/2024 urina lysis , dipst ick Urobilinogen .2 Not Available [address], [address], 06/27/2024 09:53:19 06/27/20 24 06/27/2024 urina lysis , dipst ick Protein 30 Not Available [address], [address], 06/27/2024 09:53:19 06/27/2006/27/2024 urina lysis , dipst ick pH 5.0 Not Available [address], [address], 06/27/2024 09:53:19 06/27/20 24 06/27/2024 urina lysis , dipst ick Blood Negati ve Not Available [address], [address], 06/27/2024 09:53:19 06/27/20 24 06/27/2024 urina lysis , dipst ick Specific [place] 1.025 Not Available [address], [address], 06/27/2024 09:53:19 06/27/20 24 06/27/2024 urina lysis , dipst ick Ketone Negati ve Not Available [address], [address], 06/27/2024 09:53:19 06/27/20 24 06/27/2024 urina lysis , dipst ick Bilirubin Negati ve Not Available [address], [address], 06/27/2024 09:53:19 06/27/20 24 06/27/2024 urina lysis , dipst ick Glucose Negati ve Not Available [address], [address], 06/27/2024 09:53:19 06/27/20 24 06/27/2024 urina lysis , dipst ick Appearance Clear Not Available [address], [address], 06/27/2024 09:53:19 06/27/20 24 06/27/2024 urina lysis , dipst ick Color Dark Yellow Not Available [address], [address], 06/27/2024 09:53:19 Result Notes None recorded. Problems Name Problem SNOMED Code Status Onset Date Resolution Date Notes Provider Name and Address Organization Details Recorded Time Steatosi s of liver 901892058 Active [address], [place], [address] , [facility]. 4 15:31:14 Essentia l hyperten ho 05631970 Active [address], [facility] [address] , [facility] 4 15:28:12 Uncompli cated moderate persiste nt asthma 828378348 Active [address], [address] 4 15:31:54 Hyperlip idemia 37109123 Active [address], [address] 4 15:30:35 Anxiety 93954409 Active 2010 Agustín De La Torre [facility] 4 19:40:08 Kidney stone 31168650 Completed 200901/17/2010 Problem Code: 592.0; Problem Code Type: ICD-9; Not Available [facility] 3 04:26:14 History of urinary stone 872753533 Active 2007 w[facility]lithot ripsy [facility] 4 19:45:14 Senile osteopor osis 59258990 Active 2004 started 10/[address], [facility] [address] [place] [address] 4 15:29:30 Posttrau matic stress disorder 14361446 Active 2013 Agustín De La Torre [facility] 4 19:42:25 Headache 90478207 Completed 200403/19/2017 Problem Code: R51; Problem Code Type: ICD-10; Not Available [facility] 3 04:26:15 Pain in thoracic spine 203706199 Active [address], [facility] [address] [place] [address] 4 12:25:05 Arthralg ia of the ankle and/or foot 828737061 Active 2013 Agustín De La Torre poncho, [facility] 4 19:40:23 Chronic pain 25989368 Active [address], [facility] [address] , [facility] 4 12:05:30 Pain of right knee joint 72820142543 [address]100 Active [address], [facility] [address] , [facility] 4 15:25:06 Adult health examinat ion Active [address], [facility] [address] , [facility] 4 15:29:58 Pain of right knee joint 43231542150 4100 Completed 201612/16/2017 Problem Code: M25.561; Problem Code Type: ICD-10; MARK [address], [facility] [address] , [facility] 4 15:25:06 Infestat ion by Sarcopte s scabiei radha hominis [id number] Completed 201703/21/2018 Problem Code: B86; Problem Code Type: ICD-10; Not Available [facility] 3 04:26:15 Chronic kidney disease stage 3 297604824 Active [address], [facility] [address] , [facility] 4 12:24:53 Digestiv e system finding 205935208 Active [address], [facility] [address] , [facility] 4 15:30:24 Opioid dependen ce in remissio n 330356623 Active [address], [facility] [address] , [facility] 4 15:30:45 History of stress fracture 49652880699 9101 Active 2018 [facility] 4 19:46:12 Hypokale lala 43837893 Active [address], [facility] [address] , [facility] 4 15:31:03 Fatigue 09241416 Active 2019 Agustín De La Torre [facility] 4 19:41:01 Pain in lower limb 85246797 Active [address], [facility] [address] , [facility] 4 12:23:20 Hypomagn esemia 679756246 Active [address], [facility] [address] , [facility] 15:30:54 Allergic rhinitis 22667375 Active [address], [facility] [address] , [facility] 4 12:17:17 History of polyp of colon 182209385 Completed 202201/03/2024 Problem Code: Z86.010; Problem Code Type: ICD-10; [facility] 4 19:43:46 Screenin g mammogra phy Active [address], [facility] [address] , [facility] 15:31:38 Upper respirat ory tract infectio n caused by Influenz a virus 50121195431 911374 Completed 202201/08/2023 Problem Code: J11.1; Problem Code Type: ICD-10; Not Available [facility] 3 04:26:17 Benign hyperten ho 75349228 Completed 200607/18/2023 Not Available [facility] 3 04:26:18 Mixed anxiety and depressi ve disorder 676056016 Completed 200402/11/2018 Not Available [facility] 3 04:26:18 Acute upper respirat ory infectio n 65687024 Completed 201710/28/2018 Problem Code: J06.9; Problem Code Type: ICD-10; Not Available [facility] 3 04:26:18 Allergy Completed 201307/18/2023 Problem Code: 995.3; Problem Code Type: ICD-9; Not Available [facility] 3 04:26:18 Joint pain in ankle and foot Completed 201307/18/2023 Problem Code: 719.47; Problem Code Type: ICD-9; Not Available [facility] 3 04:26:18 Localize d eruption of skin 979297757 Completed 201805/31/2021 Problem Code: R21; Problem Code Type: ICD-10; Not Available [facility] 3 04:26:19 Generali zed skin eruption caused by drug and medicame nt 416789683 Completed 201809/09/2020 Problem Code: L27.0; Problem Code Type: ICD-10; Not Available [facility] 3 04:26:19 Periapic al abscess 441561770 Completed 201909/09/2020 Problem Code: K04.7; Problem Code Type: ICD-10; Not Available [facility] 3 04:26:19 Hyperlip idemia screenin g Completed 201503/05/2017 Problem Code: Z13.220; Problem Code Type: ICD-10; Not Available [facility] 3 04:26:19 Dysmenor bryson 088376325 Completed 200402/19/2019 Problem Code: N94.6; Problem Code Type: ICD-10; Not Available [facility] 3 04:26:19 Osteopor osis 58728354 Completed 200407/18/2023 Not Available [facility] 3 04:26:20 Diabetes mellitus screenin g Completed 201503/05/2017 Problem Code: Z13.1; Problem Code Type: ICD-10; Not Available [facility] 3 04:26:20 Biliary calculus 054993058 Completed 200702/19/2019 Not Available [facility] 3 04:26:20 Depressi ve disorder 65124959 Completed 200702/11/2018 Not Available [facility] 3 04:26:20 IgE-medi ated allergic asthma 092727325 Completed Problem Code: 493.00; Problem Code Type: ICD-9; Not Available [facility] 3 04:26:20 Kidney stone 04988628 Completed 200707/18/2023 Problem Code: 592.0; Problem Code Type: ICD-9; Not Available [facility] 3 04:26:21 Screenin g for malignan t neoplasm of colon Completed 201909/09/2020 Problem Code: Z12.11; Problem Code Type: ICD-10; Not Available [facility] 3 04:26:21 Hydronep hrosis 41288540 Completed 200806/01/2022 Problem Code: N13.30; Problem Code Type: ICD-10; Not Available [facility] 3 04:26:21 Backache 720549090 Completed 201307/18/2023 Not Available [facility] 3 04:26:21 Uncompli cated asthma 477415397 Completed 195907/18/2023 Problem Code: J45.909; Problem Code Type: ICD-10; Not Available [facility] 3 04:26:21 Renal function tests outside referenc e range 785380622 Completed 201803/23/2021 Problem Code: R94.4; Problem Code Type: ICD-10; Not Available [facility] 3 04:26:22 Disorder of kidney and/or ureter 586265688 Completed 201807/18/2023 Problem Code: N28.9; Problem Code Type: ICD-10; Not Available [facility] 3 04:26:22 Measurem ent finding 454197450 Completed 201905/31/2021 Problem Code: R78.89; Problem Code Type: ICD-10; Not Available [facility] 3 04:26:22 Superfic ial injury of finger 947975515 Completed 202104/21/2022 Not Available [facility] 3 04:26:23 Breast lump 00494741 Completed 202012/01/2021 Problem Code: N63.0; Problem Code Type: ICD-10; Not Available [facility] 3 04:26:23 Family history of diabetes mellitus 211035916 Completed 201605/31/2021 Problem Code: Z83.3; Problem Code Type: ICD-10; Not Available [facility] 3 04:26:23 Abscess of skin and/or subcutan eous tissue 43411133 Completed 201502/19/2019 Problem Code: L02.91; Problem Code Type: ICD-10; Not Available [facility] 3 04:26:23 Screenin g for malignan t neoplasm of breast Completed 201804/21/2022 Problem Code: Z12.39; Problem Code Type: ICD-10; Not Available [facility] 3 04:26:23 Therapeu tic drug monitori ng assay 85746855 Completed 201409/09/2020 Problem Code: Z51.81; Problem Code Type: ICD-10; Not Available [facility] 3 04:26:24 Adult health examinat ion Completed 201602/19/2019 Problem Code: Z00.00; Problem Code Type: ICD-10; MARK HERNANDEZ [facility] [address], [place], [address] , [facility]. 4 15:29:58 Screenin g for malignan t neoplasm of colon Completed 202004/21/2022 Problem Code: Z12.11; Problem Code Type: ICD-10; Not Available [facility] 3 04:26:25 Menopaus e present 173972079 Completed 201002/19/2019 Not Available [facility] 3 04:26:25 Itching of skin 361089905 Completed 202006/01/2022 Problem Code: L29.9; Problem Code Type: ICD-10; Not Available [facility] 3 04:26:26 Abdomina l pain 62215144 Completed 201805/31/2021 Problem Code: R10.9; Problem Code Type: ICD-10; Not Available [facility] 3 04:26:26 Generali zed anxiety disorder 09256143 Completed 201007/18/2023 Not Available [facility] 3 04:26:26 COVID-19 364026884 Completed 202201/03/2024 Agustín isaac, [facility] 4 19:40:40 Low back pain 074023946 Active [address], [place], [address] , [facility] 4 15:24:49 History of adenomat ous polyp of colon 529214706 Active 2022 tubular adenoma 2022; recall 7yrs Agustín isaac, [facility]. 4 19:44:46 Arthrode sis of ankle Active [address], [place], [address] , [facility] 4 15:26:51 Subclini wallace hypothyr oidism 63024195 Active [address], [facility] [address] [place] [address] 4 15:28:16 Hyperpar athyroid ism 92421226 Active [address], [address] 4 15:28:18 Follicul ar cysts of skin and subcutan eous tissue 063099743 Active [address], [address] 4 15:29:26 Acute urinary tract infectio n 222243886 Active 2023 Mari Sam RN [facility], [facility] 4 09:48:43 Diarrhea 57615758 Active [address], [address] 4 10:04:11 Problem Notes None recorded. Medical Equipment None Reported. Allergies Allergen ID Allergen Name Allergen Category Reaction Reaction Severity Criticality Documentation Date Start Date Code Code System Note Provider Name and Address Organization Details Recorded Time 83480 Substance with sulfonami de structure and antibacte rial mechanism of action (substanc e) medicatio n rash Not available Not available 08/31/20232004 06201 8003 SNOMED Agustín De Leonhead [facility], [facility] 4 19:39:39 Medications Name Sig Start Date Stop [...] amitripty line 25 mg tablet 1-2 . hs 09/12 completed Not Available Not Available Not [...] lable Celexa 20 mg tablet /4 to 12 .qd anxiety 06/21 completed Not Available Not [...] Available fluoromet holone 0.1 % eye drops,reyna delores SHAKE WELL BEFORE USE--INS TILL 1 DROP [...] Available Not Available Nasonex 50 mcg/actua tion [place] 1 spray in each nostril daily 08/10 [...] powder TAKE 17 GRAMS DIRECTED BY PRESCRIB ERS OFFICE FOR COLONOSC OPY BOWEL PREP 12/04 [...] skin twice a day 05/[address] Fernando amaroen ded 05/2020 Not Available Not Available Not [...] to three times a day as needed. 06/27 completed Not Available Not Available Not Available [...] Available Vitals Date Recorded Body height Body mass index (BMI) Body weight Body temperature Heart rate Systolic blood pressure Diastolic blood pressure Provider Name and Address Organization Details Last Updated DateTime 4 153.67 cm 32.3 kg/m2 25398.5 2 g 97.8 [degF] 72 /min 122 mm[Hg] 84 mm[Hg] Mari Sam RN [place] [facility] 4 09:34:28 Social History Question Answer Notes LastModified by Organizat ion Details LastModified Time Tobacco Smoking Status Never Smoker LUIS LIMON RN [facility], [place] [facility] 01/08/2024 15:06:25 Would You Say That, In [...] Of Your Most Recent Tobacco Screening? 06/27/2024 [email or web address] Information n ot available 06/27/2024 Has Tobacco Cessation Counseling Been Provided? Yes Information not available 03/12/2024 On What Date Was Tobacco Cessation Counseling Provided? 06/27/2024 [email or web address] Information not available 06/27/2024 Do You Or Have You Ever Used Any Other Forms Of Tobacco Or Nicotine? No Information not available 01/08/2024 Sex: Female Functional [...] 01/09/2024 completed MARK HERNANDEZ [address], [place], [address], [facility] 01/09/2024 13:37:59 Td (adult), 2 Lf tetanus toxoid, preservative free, adsorbed 01/29/2018 completed Not Available [facility] 08/31/2023 05:17:27 Tdap 07/31/2007 completed Not Available [facility] 05:17:27 Td(adult) unspecified formulation 06/22/1997 completed Not Available [facility] 08/31/2023 05:17:27 Influenza, split virus, trivalent, preservative 08/10/2016 completed Not Available [facility] 08/31/2023 05:17:27 Influenza, split virus, trivalent, preservative 09/06/2015 completed Not Available [facility] 08/31/2023 05:17:27 Influenza, split virus, quadrivalent, PF 07/01/2020 completed Not Available [facility] 08/31/2023 05:17:27 Influenza, split virus, quadrivalent, PF 09/22/2019 completed Not Available [facility] 08/31/2023 05:17:27 Influenza, split virus, quadrivalent, PF 10/03/2021 completed Not Available [facility] 08/31/2023 05:17:27 Influenza, split virus, quadrivalent, preservative 07/23/2018 completed Not Available [facility] 08/31/2023 05:17:27 Influenza, split virus, quadrivalent, preservative 09/17/2017 completed Not Available [facility] 08/31/2023 05:17:27 zoster recombinant 03/13/2019 completed Not Available [facility] 08/31/2023 05:17:28 zoster recombinant 07/23/2018 completed Not Available [facility] 08/31/2023 05:17:28 Influenza, high-dose, quadrivalent, PF 09/01/2022 completed Not Available [facility] 08/31/2023 05:17:28 COVID-19, mRNA, LNP-S, PF, 100 mcg/0.5mL dose or 50 mcg/0.25mL dose 01/10/2021 completed Not Available [facility] 08/31/2023 05:17:28 COVID-19, mRNA, LNP-S, PF, 100 mcg/0.5mL dose or 50 mcg/0.25mL dose 02/07/2021 completed Not Available [facility] 08/31/2023 05:17:28 COVID-19, mRNA, LNP-S, PF, 100 mcg/0.5mL dose or 50 mcg/0.25mL dose 10/03/2021 completed Not Available [facility] 08/31/2023 05:17:28 COVID-19, mRNA, LNP-S, bivalent, PF, 30 mcg/0.3 mL dose 09/01/2022 completed Not Available [facility] 08/31/20 05:17:28 pneumococcal polysaccharide PPV23 10/22/1998 completed Not Available [facility] 2022 05:17:28 pneumococcal polysaccharide PPV23 10/22/1999 completed Not Available [facility] 2022 05:17:28 Past Encounters Encounter ID Performer Location Encounter Start Date Encounter Closed Date Diagnosis/Indication Diagnosis SNOMED-CT Code Diagnosis ICD10 Code [id number] MARK HERNANDEZ [address] [address] 06/27/2024 09:16:30 06/27/2024 10:03:14 Acute urinary tract infection 865240959 N39.0 Diarrhea 28198643 R19.7 Health Concerns Section Related Observation LastModified by Organization Detai ls LastModified Time None Recorded Concern Status LastModified by Organization Details LastModified Time None Recorded Payers Encounter Date Sequence Insurance Name Policy Number Policy [facility] Covered Member ID [facility] Member ID Guarantor Name 06/27/2024 2 FOR LIFE () Lena Heller Bettie [id number] Lena Pina Alexandre 06/27/2024 1 [employer] (MEDICARE REPLACEMENT/ ADVANTAGE - PPO) Lena Alexandre [id number] Lena Alexandre Notes Date Note Type Note Provider Name and Address Organization Details Recorded Time 06/27/2024 text/html HPI Notes: The patient, Lena, [...] cholesterol medication, possibly colestyramine, for loose stools. SAIDA BHATT, MARK [address], [place], [address], [facility]. 06/27/2024 10:07:20 OBGyn Episode No OBEpisode recorded.
--- OUTSIDE RECORDS SUMMARY | 2024-06-27 18:20 | XMS_ITS | Encounter Summary ---
Author Organization [facility] [place] [address] Care Team Providers Care Dry Transfer Man Name Role Phone Destinee Bhatt APRN Primary Care Provider [phone] Encounter Details Date Type Department Care Team (Latest Contact Info) Description 02/27/2024 Travel Social History Tobacco Use Types Packs/Day [...] on filedocumented in this encounter Care Teams Dry Transfer Man Relationship Specialty Start Date End Date Destinee Bhatt APRN [address] [place] [address] PCP - General Family Medicine 08/23/20 documented as of this encounter
--- OUTSIDE RECORDS SUMMARY | 2024-06-27 18:20 | XMS_ITS | Clinical Summary ---
Author Organization [facility] [place] [address] Care Team Providers Care Reviewer Sales Name Role Phone MillerDestinee SHARONA Primary Care Provider [phone] Allergies Active Allergy Reactions Criticality Noted Date Comments Aspirin 11/10/2022 House Dust Headaches, Asthma Hydrochlorothiazide High 11/10/2022 Other Reaction(s): nausea, dizzy Oxycodone Hcl High 11/10/2022 Other Reaction(s): Itching Oxycodone-Acetaminophen Itching Medium Sulfa (Sulfonamide Antibiotics) Hives Medium Trazodone Low 06/13/2011 Dizziness, lightheaded Sertraline 07/20/2016 Medications Medication Sig Dispensed Refills Start Date End Date Status Levalbuterol Tartrate (XOPENEX HFA) 45 mcg/Actuation inhaler 08/03/2010 Act selene ALBUTEROL INHL Inhale 2 puffs into the lungs. As directed/as needed Active fluticasone-salmeterol (ADVAIR DISKUS) 250-50 mcg/dose diskus inhaler Inhale 1 puff into the lungs 2 times daily. Active MULTI-VITAMIN ORAL Take 1 tablet by mouth daily. Active acetaminophen (TYLENOL) 500 mg tablet Take 1,000 mg by mouth every 6 hours as needed. Active prochlorperazine (COMPAZINE) 10 mg Tablet every 8 hours as needed. 04/04/2016 Active atenolol (TENORMIN) 100 mg Tablet Take 100 mg by mouth daily. 09/22/2016 Active fluticasone propionate (FLONASE) 50 mcg/actuation [place], Suspension SPRAY 1 2 SPRAYS INTO EACH NOSTRIL ONCE A DAY 01/10/2020 Active pantoprazole EC (Protonix) 40 mg Tablet, Delayed Release (E.C.) TAKE 1 TABLET BY MOUTH DAILY 05/29/2020 Active montelukast (Singulair) 10 mg Tablet Take 10 mg by mouth nightly. 01/07/2021 Active atorvastatin (Lipitor) 40 mg tablet Take 40 mg by mouth every evening. 01/22/2023 Active lisinopriL (Zestril) 40 mg tablet Take 40 mg by mouth daily. 01/24/2023 Active capsaicin (Zostrix) 0.025 % Cream Three times a day 12/10/2019 Acti ve cetirizine (ZyrTEC) 10 mg tablet Take 10 mg by mouth daily. Active alendronate (Fosamax) 70 mg tablet Take 70 mg by mouth every 7 days. 02/22/2024 Active Active Problems Problem Noted Date Diagnosed Date Acute renal disease 09/07/2023 Allergic reaction 09/07/2023 Allergic rhinitis 09/07/2023 Anemia 09/07/2023 Backache 09/07/2023 Bilateral leg pain 09/07/2023 Cholelithiasis without obstruction 09/07/2023 Overview (09/07/2023): Jul 31, 2014 Entered By: CAMILO FISH Comment: Cholecystectomy 2009, non-VA. Loose stools since Chronic abdominal pain 09/07/2023 Chronic pruritus 09/07/2023 COPD (chronic obstructive pulmonary disease) Creatinine elevation 09/07/2023 Drug eruption 09/07/2023 Fatigue 09/07/2023 Fracture of left distal radius 09/07/2023 History of colonoscopy 09/07/2023 History of cholecystectomy 09/07/2023 History of vertebral stress fracture 09/07/2023 Hypokalemia 09/07/2023 Hypomagnesemia 09/07/2023 Insomnia 09/07/2023 Left ankle pain 09/07/2023 Obesity 09/07/2023 Opioid dependence in remission 09/07/2023 Osteoarthritis of right knee 09/07/2023 Osteoporosis 09/07/2023 Screening for colon cancer 09/07/2023 Subclinical hypothyroidism 09/07/2023 Tenesmus 09/07/2023 Tubular adenoma of colon 09/07/2023 Hx of multiple trauma 09/27/2016 Overview (09/27/2016): 02/19/01 post fall through a ceiling to cement floor T 12 burst fx R Lateral tibial plateau L ankle pilon exfix with subsequent ankle fusion 2001 Nephrolithiasis 06/13/2011 Reflux 06/12/2011 Liver disease Overview (07/20/2016): fatty liver Hypertension Anxiety Depression Hypercholesterolemia GERD (gastroesophageal reflux disease) Asthma Hyperlipidemia Immunizations Name Administration Dates Next Due Influenza Unspecified Formulation 06/22/2014,10/2012,08/22/2010 Influenza Vaccine, Whole 08/22/2009 Pneumococcal Polysaccharide (Pneumovax 23) 10/22 Pneumococcal Vaccine, Unspec ified Formulation 10/22/1999 Td Adult, Unspecified Formulation 10/22/1992 Family History Medical History Relation Comments Coronary [...] on file Sexual Orientation Not on file Last Filed Vital Signs Vital Sign Reading Time Taken Comments Blood Pressure 152/84 02/27/2024 3:11 PM EDT Pulse 58 02/27/2024 3:11 PM EDT Temperature - - Respiratory Rate - - Oxygen Saturation 98% 09/07/2023 1:41 PM EST Inhaled Oxygen Concentration - - Weight 78.9 kg (174 lb) 02/27/2024 3:11 PM EDT Height 154.9 cm (5' 1) 02/27/2024 3:11 PM EDT Body Mass Index 32.88 02/27/2024 3:11 PM EDT Plan of Treatment Health Maintenance Due Date Last Done Comments CT Colonography 1960 Colonoscopy 1960 Colorectal Cancer Screening 1960 FIT DNA 1960 FIT 1960 Sigmoidoscopy (10 year) with FIT yearly 1960 Sigmoidoscopy 1960 HIV screen 1978 Hepatitis C Screening 1978 Tdap adult 1979 HPV test 1990 PAP Smear 1990 Breast Cancer Share Decision Needed 2000 Breast Cancer screening 2000 Tetanus vaccine 10/22/2002 10/22/1992 Pneumococcal Vaccine: At-Ris k 5-64yrs (2 of 2 - PCV) 10/22/2007 10/22/2006, 10/22/1999 Zoster vaccine (1 of 2) 2010 Advance Directive 2015 Influenza (Flu) vaccine (1 o f 1 - Influenza standard series) 06/22/2024 06/22/2014, 08/22/2013, 08/22/2010, Additional history exists Diabetes Screening (HgbA1C o r Glucose) 02/26/2027 02/27/2024, 09/07/2023, 02/20/2023, Additional history exists Covid-19 Vaccine Completed 01/09/2024, 08/2022, 10/03/2021 Procedures Procedure Name Priority Date/Time Associated Diagnosis Comments BASIC METABOLIC PANEL Routine 02/27/2024 2:45 PM EDT Nephrolithiasis Hypertension, unspecified type Stage 3 chronic kidney disease, unspecified whether stage 3a or 3b CKD from Last 3 Months or Most Recently Relevant to Health Maintenance Results * (ABNORMAL) Basic Metabolic Panel (non-fasting) (02/27/2024 2:45 PM EDT) Glucose 91 65 - 199 mg/dL [facility] Comment:Diabetes: >=200 mg/d L plus symptoms Blood Urea Nitrogen 21(H) 8 - 18 mg/dL [facility] Creatinine 1.27(H) 0.70 - 1.20 mg/dL [facility] Sodium 142 135 - 145 mmol/L [facility] Potassium 4.1 3.5 - 5.0 mmol/L [facility] Comment: Please note: ??Patients with WBC >100,000 may have falsely elevated Potassium levels. ??For accurate Potassium quantification in these patients send serum separator tube (gold top) for subsequent determinations. ??Contact the Clinical Chemistry Laboratory if there are any questions. Chloride 107 98 - 107 mmol/L [facility] Carbon Dioxide 24 22 - 31 mmol/L [facility] Anion Gap 11 5 - 15 mmol/L [facility] Calcium 8.6 8.5 - 10.5 mg/dL [facility] Est Glomerular Filtration Rate 48(L) >=60 mL/min/1. 73 m?? [facility] Comment: This patient's estimated GFR [...] In Lab Kriss Florian APRN CHEMISTRY ORDERABLES [facility] [place] [address] from Last 3 Months or Most Recently Relevant to Health Maintenance Care Teams Reviewer Sales Relationship Specialty Start Date End Date Destinee Bhatt APRN [address] [place] [address] PCP - General Family Medicine 08/23/20
--- OUTSIDE RECORDS SUMMARY | 2024-06-27 18:20 | XMS_ITS | Encounter Summary ---
Author Organization [facility] Address [facility] [place] [address] Care Team Providers Care Casing Cleaner Name Role Phone Destinee Bhatt APRN Primary Care Provider [phone] Reason for Visit * Consultation (Routine) - Closed Specialty Diagnoses / Procedures Referred By Contjayde t Referred To Contact Allergy Diagnoses Rash and other nonspecific skin eruption Destinee Bhatt APRN [address] [place] [address] [facility] [place] [place] [facility] [address] [place] [id number] Referral ID Status Reason Start Date Expiration Date V isits Requested Visits Authorized [id number] Closed Consult, Test & Treat [facility] PCP Updated and/or Approved 08/18/2020 08/18/2021 12 12 Encounter Details Date Type Department Care Team (Late st Contact Info) Description 09/17/2020 9:30 AM EST [place] [phone] Jaylene Gaston MD [facility] [address] Rash; Allergy to Green[place]ic house dust mite Social History Tobacco Use Types Packs/Day Years [...] EDT documented in this encounter Patient Instructions * Patient Instructions* Benjamin Casillas MD - 09/17/2020 9:30 AM EST As discussed during your visit, we suggest continued use of moisturizing skin cream/ointments, though please ensure that the lotion is fragrance-free. documented in this encounter Progress Notes * Benjamin Casillas MD - 09/17/2020 9:30 AM EST CC: Skin rash with pruritus HPI: Lena Alexandre is a 60 y.o. 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 She has frequently changed her soaps, lotions, shampoos, and detergents, without exacerbation or improvement. She has been using fragrance-free laundry detergent for the past month and has recently been using aloe-vera skin lotion, likely with fragrances. In 2001, she was seen by [facility] for chronic allergic rhinitis, and underwent skin testing, which appears to have been positive for dust mite and cat (though the original report is not available). She underwent immunotherapy for dust mites between 5525-8628. She has been using dust mite coversfor furniture, and launders them frequently. She recalls that her symptoms were primarily sinus congestion, headache and ear fullness, and does not recall a rash with exposure to either triggers. During this time, she had been trialed on loratadine and fexofenadine. It appears per documentation, that she has been on a 2nd-generation anti-histamine since this work-up, and has been taking [id number] daily for at least the past few years. Since being on these medications, she has had improvement in her sinus headaches. She has generic fluticasone at home, however has not trialed daily usage of it. ticasone In the past year (patient is unsure of the date), a skin biopsy was performed by her PCP (Marko Duffy APRN at [facility]), which was suggestive that her skin rash was medication triggered. She was taken off of multiple medications, including lisinopril, statins, and other antihypertensives, with no improvement in her rash. She has since been restarted on lisinopril. She was the referred to Dermatology at [place] in May of this year, who noted excoriated papules in various stages of healing [...] not have a photo of the event, but notes that her sister also saw the rash. She went to [facility], who suspected it was likely allergy-related and gave her a course of Prednisone, though the patient does not recall dosage and duration. She was referred back to her PCP, who saw her one week ago, and suggested that it might be eczema.She has since completed the course of prednisone, though does not recall the date of her last dosage. She reports a history of an allergy to sulfa drugs. She had been treated once with an antibiotic ofthat class, though does not recall the specific medication, and within a few days of being on the course of therapy, developed urticaria that resolved after cessation of the medication. She has othermedications on her allergy list, however these appear to be adverse drug reactions, including an unknown reaction to sertraline (the patient does not recall), lightheadedness and dizziness with trazadone, and pruritus with oxycodone-acetaminophen. She does not have a history of [...] Active Problem List Diagnosis Code ??? Reflux [id number] ??? Nephrolithiasis N20.0 ??? Liver disease K76.9 [...] Tablet ??? fluticasone propionate (FLONASE) 50 mcg/actuation [place], Suspension ??? lisinopriL (Prinivil;Zestril) 20 mg Tablet ??? pantoprazole EC (Protonix) 40 mg Tablet, Delayed Release (E.C.) ??? penicillin v potassium (VEETID) 500 mg Tablet ??? Advair Diskus 100-50 mcg/dose Disk with Device ??? alendronate (Fosamax) 70 mg Tablet ??? potassium chloride ER (K-Dur/Klor-Con) 20 mEq Tab Sust.Rel. Particle/Crystal ??? cetirizine (ZYRTEC) 10 mg Tablet ??? atorvastatin (LIPITOR) 20 mg Tablet ??? Emgifzd-Krvsnrtrs-Ljaz 333-133-5 mg Tablet ??? atenolol (TENORMIN) 100 mg Tablet ??? NEXIUM 40 mg Capsule, Delayed Release(E.C.) ??? prochlorperazine (COMPAZINE) 10 mg Tablet ??? Mometasone (NASONEX) 50 mcg/Actuation [place] ??? acetaminophen (TYLENOL) 500 mg tablet ??? [...] erythema, or drainage. Normal external ear canals. Nasalpassages show normal mucosa, normal turbinates bilaterally, no [...] raised papules with excoriations on the upper armsbilaterally R>L , Healing eschar on her posterior right thigh with surrounding evidence of excoriation EXTREMITIES: warm and well-perfused, normal bulk, symmetric ROM, no edema NEURO: EOMI, no dysarthria PSYCH: normal grooming, appropriate mood and affect, normal volume/quantity/tone of speech, normal thought process and content ASSESSMENT AND PLAN: 60 y.o. 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 Per the patient's history, there does not appear to be a clear trigger for her symptoms. Although she does have a history of dust mite allergies, she was treated with immunotherapy between [id number] and reports regular laundering of her dust mite covers, suggesting this is less likely, though not ruled out. Her medication list does not include typical medications notorious for this reaction, and she has already been taken off of NSAIDs due to her renal dysfunction. With this history, she is unlikelyto benefit from skin testing, though this can be [...] cetirizine is providing significant benefit to her symptoms. Will plan for follow-up, as needed, with further evaluation by Dermatology and the patient's PCP. * Jaylene Gaston MD - 09/17/2020 9:30 AM EST I have seen and examined the patient and reviewed Dr. Benjamin Casillas's history and physical exam and I agree with the details as written. The assessment and plan were formulated in discussion with meand I agree with them as documented. 60 y.o. 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 She has scattered papules, which she scratches. She has previously been skin test positive to dust mites, and does have dust mite encasings. She has tried changing medications without improvement. She has recently been advised to start a fragrance free emollient. She is currently using an aloe vera lotion with fragrance and Sarna. Return as needed. documented in this encounter Plan of Treatment Not on file documented as of this encounter Visit Diagnoses Diagnosis Rash Rash and other nonspecific skin eruption Allergy to Green[place]ic house dust mite documented in this encounter Care Teams Casing Cleaner Relationship Specialty Start Date End Date Destinee Bhatt APRN [address] [place] [address] PCP - General Family Medicine 08/23/20 documented as of this encounter
--- OUTSIDE RECORDS SUMMARY | 2024-06-27 18:20 | XMS_ITS | Encounter Summary ---
[facility] [place] [address] Care Team Providers Care Freight Unloader Name Role Phone MillerDestinee SHARONA Primary Care Provider [phone] Encounter Details Date Type Department Care Team (Latest Contact Info) Description 02/27/2024 4:00 PM EDT Office Visit Nephrology [place] [id number] Kriss Florian RESIDENTIAL DIRECTOR [facility] [place] [address] Stage 3a chronic kidney disease (Primary Dx); Nephrolithiasis; Hypertension, unspecified type Social History Tobacco Use [...] - Inhaled Oxygen Concentration - - Weight 78.9 kg (174 lb) 02/27/2024 3:11 PM EDT Height 154.9 cm (5' 1) 02/27/2024 3:11 PM EDT Body Mass Index 32.88 02/27/2024 3:11 PM EDT documented in this encounter Progress Notes * Kirss Florian W, RESIDENTIAL DIRECTOR - 02/27/2024 4:00 PM EDT [facility] NEPHROLOGY/HYPERTENSION CLINIC FOLLOW-UP NOTE [id number] ID: 63 y.o.year-old female seen for follow up of CKD. Past Medical History: Patient Active Problem List Diagnosis Code Reflux [id number] Nephrolithiasis N20.0 Liver disease K76.9 Hypertension I10 [...] (chronic obstructive pulmonary disease) J44.9 Creatinine elevation [id number] Drug eruption L27.0 Fatigue R53.83 Fracture of [...] colon D12.6 Outpatient Encounter Medications as of 02/27/2024 Medication Sig Dispense Refill cetirizine (ZyrTEC) 10 mg tablet Take 10 mg by mouth daily. alendronate (Fosamax) 70 mg tablet Take 70 mg by mouth every 7 days. capsaicin (Zostrix) 0.025 % Cream Three times a day [DISCONTINUED] loratadine (Claritin) 10 mg Tablet Take 10 mg by mouth daily. atorvastatin (Lipitor) 40 mg tablet Take 40 mg by mouth every evening. lisinopriL (Zestril) 40 mg tablet Take 40 mg by mouth daily. montelukast (Singulair) 10 mg Tablet Take 10 mg by mouth nightly. fluticasone propionate (FLONASE) 50 mcg/actuation [place], Suspension SPRAY 1 2 SPRAYS INTO EACH [...] Levalbuterol Tartrate (XOPENEX HFA) 45 mcg/Actuation inhaler prochlorperazine (COMPAZINE) 10 mg Tablet every 8 hours as needed. No facility-administered encounter medications on file as of 02/27/2024. Allergies Allergen Reactions Hydrochlorothiazide Other Reaction(s): nausea, dizzy Oxycodone Hcl Other Reaction(s): Itching Oxycodone-Acetaminophen Itching Sulfa (Sulfonamide Antibiotics) Hives Aspirin House Dust Headaches, Asthma Zoloft [Sertraline] Trazodone Dizziness, lightheaded S: The patient presented today for her follow up CKD encounter she was last seen by me on 09/07/23. Since our encounter she stated she had COVID-19 in September 2023 for the 1st time and she had wickedsymptoms. Today she endorses that her energy is ok and she has been working with PT/OT once weekly for old back and ankle injuries. She further denies any lightheadedness or dizziness, headaches, SOB, chest pain/pressure. Her appetite she states is too good however her fluid intake is not as good but I do drink coffee She stated denies any changes in her urination pattern colour or frequency. She further endorses depending on her diet she make have frequent soft to watery stools (she has had her gallbladder removed in 2009). Use of NSAIDs:Deneis use Herbal supplements:Denies use Home BP:Does not check Home BS: Tumeric, Mushroom and TLC gummies O: Vitals: 02/27/24 1511 BP: 152/84 Pulse: 58 Weight: 78.9 kg (174 lb) Height: 154.9 cm (5' 1) General: Arrived ambulant with walker, Alert, comfortable. Cooperative with exam. HEENT: Sclera white. Mucous membranes moist. No lymphadenopathy. CV: S1 and S2. HR regular. JVP not elevated. Resp: Lungs clear with no crackles or wheezes. Respirations non labored. Abd: Soft. + BS. No bruit. Non tender. Ext: Warm. No cyanosis. No edema. Skin: No rash. Neuro: Intact. No asterixis. Psych: Mood appropriate Labs: Recent Results (from the past 72 hour(s)) PTH Result Value Ref Range PTH 96 (H) 15 - 65 pg/mL Phosphorus Result Value Ref Range Phosphorus 3.9 2.5 - 4.5 mg/dL Uric acid Result Value Ref Range Uric Acid 6.3 2.5 - 6.5 mg/dL Vitamin D, 25-Hydroxy Result Value Ref Range 25-OH Vit D Total 39 21 - 100 ng/mL 25-OH Vit D Interp Sufficient Basic Metabolic Panel (non-fasting) Result Value Ref Range Glucose Lvl 91 65 - 199 mg/dL BUN 21 (H) 8 - 18 mg/dL Creatinine 1.27 (H) 0.70 - 1.20 mg/dL Sodium 142 135 - 145 mmol/L Potassium 4.1 3.5 - 5.0 mmol/L Chloride 107 98 - 107 mmol/L CO2 24 22 - 31 mmol/L Anion Gap 11 5 - 15 mmol/L Calcium 8.6 8.5 - 10.5 mg/dL Estimated GFR 48 (L) >=60 mL/min/1.73 m?? Albumin Level Result Value Ref Range Albumin 4.1 3.2 - 5.2 g/dL Hemogram Result Value Ref Range WBC 8.2 4.0 - 9.5 x10(3)/mcL RBC 4.11 4.00 - 5.21 x10(6)/mcL Hemoglobin 11.8 11.7 - 15.5 g/dL Hematocrit 37.4 35.7 - 45.8 % MCV 91.0 82.6 - 94.4 fL MCH 28.7 27.1 - 32.0 pg MCHC 31.6 (L) 31.7 - 35.0 g/dL Platelets 232 145 - 357 x10(3)/mcL RDWSD 44.7 37.0 - 46.0 fL RDWCV 13.3 11.5 - 14.1 % MPV 10.4 7.6 - 12.9 fL nRBC % Auto 0.0 % nRBC Abs Auto 0.000 0.000 - 0.000 x10(3)/mcL Differential, Automated Result Value Ref Range Neutrophils % 57.4 % Neutr Abs (ANC) 4.70 1.70 - 6.10 x10(3)/mcL Lymphocytes % 26.4 % Lymphocytes Abs 2.2 0.9 - 3.2 x10(3)/mcL Monocytes % 11.0 % Monocyte Abs 0.9 0.3 - 0.9 x10(3)/mcL Eosinophils % 4.2 % Eosinophils Abs 0.3 0.0 - 0.4 x10(3)/mcL Basophils % 0.6 % Basophils Abs 0.0 0.0 - 0.1 x10(3)/mcL Immature Gran % 0.40 % [place] Gran Abs 0.03 0.00 - 0.04 x10(3)/mcL Protein/Creatinine Ratio, urine Result Value Ref Range U Creatinine 126 mg/dL U Protein Ran 8 0 - 12 mg/dL Prot/Cre Ratio <0.1 ratio U Albumin/Cre Ratio Result Value Ref Range Alb/Cr Ratio, Random 2 0 - 29 mcg/mg Cr U Albumin Conc, Random 3.1 mg/L U Creatinine 126 mg/dL _Urinalysis with microscopic Result Value Ref Range Glucose UA Negative Negative mg/dL Protein UA Negative Negative mg/dL Bilirubin UA Negative Negative mg/dL Urobilinogen UA Normal Normal mg/dL pH UA 5.0 5.0 - 8.0 Blood UA Negative Negative mg/dL Ketones UA Negative Negative mg/dL Nitrite UA Negative Negative Leukocytes UA Negative Negative mcL Appearance UA Clear Clear Spec Palmer UA 1.019 1.005 - 1.030 Color UA Yellow Yellow RBC UA 0 0 - 4 /HPF WBC UA 2 0 - 5 /HPF Squam Epith UA 4 <=4 /HPF Hyaline Cast UA 2 0 - 2 /LPF A/P: Lena Alexandre is a 63 y.o. female seen today for CKD. 1. CKD stage 3a likely secondary to nephrolithiasis and requiring lithotripsy in 2009 and prior intense NSAID use: Serum Creatinine 1.27, eGFR 48 The patient's renal function is currently stable, albeit with some measure of noted variability. Despite enduring chronic pains, the patient reports doing relatively well and is taking proactive steps to address her condition through physical and occupational therapies. However, the patient is facing challenges when it comes to maintaining adequate hydration, as she tends to prefer coffee over anappropriate daily water intake, which is imperative to prevent nephrolithiasis which we discussed in detail given her prior experience with this. On a positive note, no significant proteinuria present. We have reviewed the various risk factors that could potentially worsen the patient's renal function, and have discussed the importance of good blood pressure control, adequate hydration, and the avoidance of nonsteroidal anti- inflammatory drugs (NSAIDs). -Avoid NSAIDs -Adequate hydration emphasized, urine colour should be no darker than pale yellow. -Target BP <130/80 -Continue current antihypertensive regimen. 2. Anemia: Hgb 11.8 Mild anemia however her Hgb is within acceptable limits for her renal function. Will continue to monitor her levels and intervene should her trend change. Goal Hgb >10, Ferritin >100ng/dl, TSAT >20% 3. Acid/Base Status: Bicarb 24 Metabolic Acidosis not noted 4. Electrolytes: Sodium 4.1 and Potassium 142 Potassium and sodium are within normal ranges 5. Bone and Mineral: Hyperparathyroidism present. PTH:96 Phosphorus:3.9 Calcium:8.6 Albumin:4.1 Vitamin D: 39 Uric Acid:6.3 Start OTC vitamin D 2000 units daily. Stage 3 - PTH 35-70pg/ml Phos 2.7-4.6 Ca 8.5-10.5mg/dl 6. Hemodynamics: Hypertension BP:152/84 P: 58 He blood pressure are elevated at today's encounter. She does not check her blood pressure at home. She however feels that the stress of getting to her visit as well as trying to find davis may have contributed to her elevated levels. Antihypertensives: Lisinopril 40mgs and atenolol 100mgs daily CV Protection: Atorvastatin 40mgs daily -We discussed the need for blood pressure checks at home and communicating the logs with my office in 2 weeks -Will defer any interventions at this time until review of her trends. -BP target <130/80 -Continue Lisinopril 40mgs and atenolol 100mgs daily -We discussed weight loss and utilization of DASH diet to further help to achieve BP target -Recommended monitoring of home BP and keeping logs to communicate with nephrology 8. Transplant/ Vascular access referral Not indicated. 9. Return to clinic 6 months with labs or sooner if needed for new or worsening symptoms Encouraged her to let me know if she has any questions or concerns in the interim. 40 minutes spent seeing the patient, reviewing the chart, and coordination of care. Kriss Florian APRN [facility] 2nd floor, Welder/Fitter [address] [place] [address] CC: Destinee Bhatt APRN @[email or web address]@ documented in this encounter Plan of Treatment Not on file documented as of this encounter Results * Protein/Creatinine Ratio, urine (02/27/2024 4:00 PM EDT) Creatinine, Urine 126 mg/dL [facility] Protein, Urine 8 0 - 12 mg/dL [facility] Protein / Creatinine Ratio, Urine <0.1 ratio [facility] Urine 02/27/2024 4:00 PM EDT 02/27/2024 4:44 PM EDT Narrative Resulting Agency Comment Spec In Lab Kriss Florian APRN URINE ORD ERABLES [facility] [place] [address] * U Albumin/Cre Ratio (02/27/2024 4:00 PM EDT) Albumin / Creatinin Ratio, Urine 2 0 - 29 mcg/mg Cr [facility] Comment: Reference Ranges: <30 mcg/mg: Normal [...] 2, 357? 362 Albumin, Urine 3.1 mg/L [facility] Creatinine, Urine 126 mg/dL [facility] Urine 02/27/2024 4:00 PM EDT 02/27/2024 4:44 PM EDT Narrative Resulting Agency Comment Spec In Lab Kriss Florian RESIDENTIAL DIRECTOR URINE ORD ERABLES [facility] [place] [address] * _Urinalysis with microscopic (02/27/2024 4:00 PM EDT) Glucose, Urine Dipstick Negative Negative mg/dL [facility] Protein, Urine Dipstick Negative Negative mg/dL [facility] Bilirubin, Urine Dipstick Negative Negative mg/dL [facility] Comment: Clinical correlation required for positive Urine Bilirubin results as false positive may occur with some drugs and drug related products. If a false positive is suspected a serum total bilirubin should be considered if clinically indicated. Urobilinogen, Urine Dipstick Normal Normal mg/dL [facility] pH, Urn (dipstick) 5.0 5.0 - 8.0 [facility] Blood, Urine Dipstick Negative Negative mg/dL [facility] Ketone, Urine Dipstick Negative Negative mg/dL [facility] Nitrite, Urine Dipstick Negative Negative [facility] Leukocytes, Urine Dipstick Negative Negative [facility] Appearance, Urine Dipstick Clear Clear [facility] Specific Palmer Urine Automated 1.019 1.005 - 1.030 [facility] Color, Urine Dipstick Yellow Yellow [facility] RBC, Urine 0 0 - 4 /HPF [facility] WBC, Urine 2 0 - 5 /HPF [facility] Squamous Epithelial Cells Raw Data, Urine 4 <=4 /HPF [facility] Hyaline Casts, Urine 2 0 - 2 /LPF [facility] Urine 02/27/2024 4:00 PM EDT 02/27/2024 4:44 PM EDT Narrative Resulting Agency Comment Spec In Lab Kriss Florian APRN URINE ORD ERABLES Performing Organization Address [facility]/ZIP Co de Phone Number [facility] [place] [address] * (ABNORMAL) PTH (02/27/2024 2:45 PM EDT) Parathyroid Hormone 96(H) 15 - 65 pg/mL [facility] Blood 02/27/2024 2:45 PM EDT 02/27/2024 2:51 PM EDT Narrative Resulting Agency Comment Spec In Lab Kriss Florian APRN CHEMISTRY ORDERABLES Performing Organization Address City/[facility]/ZIP Co de Phone Number [facility] [place] [address] * Phosphorus (02/27/2024 2:45 PM EDT) Phosphorus 3.9 2.5 - 4.5 mg/dL [facility] Blood 02/27/2024 2:45 PM EDT 02/27/2024 2:51 PM EDT Narrative Resulting Agency Comment Spec In Lab Kriss Stackaraj SHARONA CHEMISTRY ORDERABLES Performing Organization Address City/[facility]/ZIP Co de Phone Number [facility] [place] [address] * Uric acid (02/27/2024 2:45 PM EDT) Uric Acid 6.3 2.5 - 6.5 mg/dL [facility] Blood 02/27/2024 2:45 PM EDT 02/27/2024 2:51 PM EDT Narrative Resulting Agency Comment Spec In Lab Kriss Stackaraj SHARONA CHEMISTRY ORDERABLES Performing Organization Address [facility] Co de Phone Number [facility] [place] [address] * Vitamin D, 25-Hydroxy (02/27/2024 2:45 PM EDT) Vitamin D Total 25 OH 39 21 - 100 ng/mL [facility] Vit D Interp Sufficient [facility] Blood 02/27/2024 2:45 PM EDT 02/27/2024 2:51 PM EDT Narrative Resulting Agency Comment Spec In Lab Kriss Stacksulema TABOR CHEMISTRY ORDERABLES Performing Organization Address [facility]/ZIP Co de Phone Number [facility] [place] [address] * (ABNORMAL) Basic Metabolic Panel (non-fasting) (02/27/2024 2:45 PM EDT) Glucose 91 65 - 199 mg/dL [facility] Comment:Diabetes: >=200 mg/d L plus symptoms Blood Urea Nitrogen 21(H) 8 - 18 mg/dL [facility] Creatinine 1.27(H) 0.70 - 1.20 mg/dL [facility] Sodium 142 135 - 145 mmol/L [facility] Potassium 4.1 3.5 - 5.0 mmol/L [facility] Comment: Please note: ??Patients with WBC >100,000 may have falsely elevated Potassium levels. ??For accurate Potassium quantification in these patients send serum separator tube (gold top) for subsequent determinations. ??Contact the Clinical Chemistry Laboratory if there are any questions. Chloride 107 98 - 107 mmol/L [facility] Carbon Dioxide 24 22 - 31 mmol/L [facility] Anion Gap 11 5 - 15 mmol/L [facility] Calcium 8.6 8.5 - 10.5 mg/dL [facility] Est Glomerular Filtration Rate 48(L) >=60 mL/min/1. 73 m?? [facility] Comment: This patient's estimated GFR was [...] Agency Comment Spec In Lab Kriss Florian RESIDENTIAL DIRECTOR CHEMISTRY ORDERABLES [facility] [address] * Albumin Level (02/27/2024 2:45 PM EDT) Albumin 4.1 3.2 - 5.2 g/dL [facility] Blood 02/27/2024 2:45 PM EDT 02/27/2024 2:51 PM EDT Narrative Resulting Agency Comment Spec In Lab Kriss Florian RESIDENTIAL DIRECTOR CHEMISTRY ORDERABLES [facility] [place] [address] documented in this encounter Visit Diagnoses Diagnosis Stage 3a chronic kidney disease- Primary Nephrolithiasis Calculus of kidney Hypertension, unspecified type documented in this encounter Care Teams Freight Unloader Relationship Specialty Start Date End Date Destinee Bhatt APRN [address] [place] [address] PCP - General Family Medicine 08/23/20 documented as of this encounter
--- OUTSIDE RECORDS SUMMARY | 2024-06-27 18:20 | XMS_ITS | Encounter Summary ---
[place] [address] Care Team Providers Care Revising Clerk Name Role Phone Miller Destinee SHARONA Primary Care Provider [phone] Encounter Details Date Type Department Care Team (Latest Contact Info) Description 09/07/2023 12:30 PM EST Laboratory Appointment Lab [address] [place] [id number] Stage 3 chronic kidney disease, unspecified whether [...] Associated Diagnosis Comments HC URINALYSIS ROUTINE Routine 09/07/2023 1:24 PM EST Stage 3 chronic kidney disease, unspecified whether stage 3a or 3b CKD PROTEIN/CREATININE RATIO, URINE Routine 09/07/2023 1:24 PM EST Stage 3 chronic kidney disease, unspecified whether stage 3a or 3b CKD U ALBUMIN/CRE RATIO Routine 09/07/2023 1 :24 PM EST Stage 3 chronic kidney disease, unspecified whether stage 3a or 3b CKD PTH Routine 09/07/2023 12:40 PM EST Stage 3 chronic kidney disease, unspecified whether stage 3a or 3b CKD HEMOGRAM Routine 09/07/2023 12:40 PM EST Stage 3 chronic kidney disease, unspecified whether stage 3a or 3b CKD DIFFERENTIAL, AUTOMATED Routine 09/07/2023 12:40 PM EST Stage 3 chronic kidney disease, unspecified whether stage 3a or 3b CKD VITAMIN D, 25-HYDROXY Routine 09/07/2023 12:40 PM EST Stage 3 chronic kidney disease, unspecified whether stage 3a or 3b CKD CBC (WITH DIFF) Routine 09/07/2023 12:40 PM EST Stage 3 chronic kidney disease, unspecified whether stage 3a or 3b CKD URIC ACID Routine 09/07/2023 12:40 PM EST Stage 3 chronic kidney disease, unspecified whether stage 3a or 3b CKD PHOSPHORUS Routine 09/07/2023 12:40 PM EST Stage 3 chronic kidney disease, unspecified whether stage 3a or 3b CKD ALBUMIN LEVEL Routine 09/07/2023 12:40 PM EST Stage 3 chronic kidney disease, unspecified whether stage 3a or 3b CKD BASIC METABOLIC PANEL Routine 09/07/2023 12:40 PM EST Stage 3 chronic kidney disease, unspecified whether stage 3a or 3b CKD documented in this encounter Results * U Albumin/Cre Ratio (09/07/2023 1:24 PM EST) Pathologist [facility] Albumin / Creatinin Ratio, Urine 3 0 - 29 mcg/mg Cr [facility] Comment: Reference Ranges: <30 mcg/mg: Normal [...] 2, 357? 362 Albumin, Urine 5.1 mg/L [facility] Creatinine, Urine 150 mg/dL [facility] Urine 09/07/2023 1:24 PM EST 09/07/2023 1:34 PM EST Narrative Resulting Agency Comment Spec In Lab Kriss Keyes Chiqui EXPEDITER SERVICE ORDER URINE ORD ERABLES [facility] [address] [place] [address] * (ABNORMAL) _Urinalysis with microscopic (09/07/2023 1:24 PM EST) Glucose, Urine Dipstick Negative Negative mg/dL [facility] Protein, Urine Dipstick Negative Negative mg/dL [facility] Bilirubin, Urine Dipstick Negative Negative mg/dL [facility] Comment: Clinical correlation required for positive Urine Bilirubin results as false positive may occur with some drugs and drug related products. If a false positive is suspected a serum total bilirubin should be considered if clinically indicated. Urobilinogen, Urine Dipstick Normal Normal mg/dL [facility] pH, Urn (dipstick) 5.5 5.0 - 8.0 [facility] Blood, Urine Dipstick Negative Negative mg/dL [facility] Ketone, Urine Dipstick Negative Negative mg/dL [facility] Nitrite, Urine Dipstick Negative Negative [facility] Leukocytes, Urine Dipstick Negative Negative [facility] Appearance, Urine Dipstick Clear Clear [facility] Specific Ste[place]s Urine Automated 1.020 1.005 - 1.030 [facility] Color, Urine Dipstick Yellow Yellow [facility] RBC, Urine 1 0 - 4 /HPF [facility] WBC, Urine 2 0 - 5 /HPF [facility] Squamous Epithelial Cells Raw Data, Urine 5(H) <=4 /HPF [facility] Hyaline Casts, Urine 3(H) 0 - 2 /LPF [facility] Urine 09/07/2023 1:24 PM EST 09/07/2023 1:34 PM EST Narrative Resulting Agency Comment Spec In Lab Kriss Florian APRN URINE ORD ERABLES Performing Organization Address City/[facility] Co de Phone Number [facility] [place] [address] * (ABNORMAL) Protein/Creatinine Ratio, urine (09/07/2023 1:24 PM EST) Creatinine, Urine 150 mg/dL [facility] Protein, Urine 15(H) 0 - 12 mg/dL [facility] Protein / Creatinine Ratio, Urine <0.1 ratio [facility] Urine 09/07/2023 1:24 PM EST 09/07/2023 1:34 PM EST Narrative Resulting Agency Comment Spec In Lab Kriss Florian APRN URINE ORD ERABLES Performing Organization Address City/[facility] Co de Phone Number [facility] [place] [address] * (ABNORMAL) Differential, Automated (09/07/2023 12:40 PM EST) Neutrophil % 63.7 % [facility] Neutrophil Absolute 5.54 1.70 - 6.10 x10(3)/mc L [facility] Lymph % 22.7 % [facility] Lymphocytes Abs 2.0 0.9 - 3.2 x10(3)/mc L [facility] Monocyte % 7.6 % [facility] Monocyte Abs 0.7 0.3 - 0.9 x10(3)/mc L [facility] Eos % 5.3 % [facility] Eosinophils Abs 0.5(H) 0.0 - 0.4 x10(3)/mc L [facility] Basophil % 0.5 % [facility] Baso Absolute 0.0 0.0 - 0.1 x10(3)/mc L [facility] Immature Gran % 0.20 % [facility] Comment: Immature granulocytes(IG's)percentage and absolute count will include metamyelocytes, myelocytes, and promyelocytes. Blood smears from CBCs yielding IG's will be scanned manually for concordance. If this scan disagrees with the automated IG or if promyelocytes are noted, a manual differential will be performed. Immature Gran Absolute 0.02 0.00 - 0.04 x10(3)/mc L [facility] Blood 09/07/2023 12:4 0 PM EST 09/07/2023 12:58 PM EST Narrative Resulting Agency Comment Spec In Lab Kriss Florian EXPEDITER SERVICE ORDER HEMATOLOG Y ORDERABLES [facility] [place] [address] * Hemogram (09/07/2023 12:40 PM EST) White Blood Cell 8.7 4.0 - 9.5 x10(3)/[facility] Red Blood Cell 4.20 4.00 - 5.21 x10(6)/[facility] Hemoglobin 12.1 11.7 - 15.5 g/dL [facility] Hematocrit 37.9 35.7 - 45.8 % [facility] Mean Cell Volume 90.2 82.6 - 94.4 fL [facility] Mean Cell Hemoglobin 28.8 27.1 - 32.0 pg [facility] Mean Cell Hemoglobin Concentration 31.9 31.7 - 35.0 g/dL [facility] Platelet 223 145 - 357 x10(3)/[facility] RDW Standard Deviation 45.6 37.0 - 46.0 fL [facility] RDW coefficient of variation 13.8 11.5 - 14.1 % [facility] Mean Platelet Volume 11.1 7.6 - 12.9 fL [facility] NRBC% auto 0.0 % [facility] NRBC Absolute 0.000 0.000 - 0.000 x10(3)/[facility] Blood 09/07/2023 12:4 0 PM EST 09/07/2023 12:58 PM EST Narrative Resulting Agency Comment Spec In Lab Kriss Florian EXPEDITER SERVICE ORDER HEMATOLOG Y ORDERABLES Performing Organization Address City/[facility]/ZIP Co de Phone Number [facility] [place] [address] * Albumin Level (09/07/2023 12:40 PM EST) Albumin 4.4 3.2 - 5.2 g/dL [facility] Blood 09/07/2023 12:4 0 PM EST 09/07/2023 12:58 PM EST Narrative Resulting Agency Comment Spec In Lab Kriss Florian EXPEDITER SERVICE ORDER CHEMISTRY ORDERABLES Performing Organization Address [facility] Co de Phone Number [facility] [place] [address] * (ABNORMAL) Basic Metabolic Panel (non-fasting) (09/07/2023 12:40 PM EST) Glucose 113 65 - 199 mg/dL [facility] Comment:Diabetes: >=200 mg/d L plus symptoms Blood Urea Nitrogen 16 8 - 18 mg/dL [facility] Creatinine 1.19 0.70 - 1.20 mg/dL [facility] Sodium 143 135 - 145 mmol/L [facility] Potassium 3.7 3.5 - 5.0 mmol/L [facility] Comment: Please note: ??Patients with WBC >100,000 may have falsely elevated Potassium levels. ??For accurate Potassium quantification in these patients send serum separator tube (gold top) for subsequent determinations. ??Contact the Clinical Chemistry Laboratory if there are any questions. Chloride 107 98 - 107 mmol/L [facility] Carbon Dioxide 25 22 - 31 mmol/L [facility] Anion Gap 11 5 - 15 mmol/L [facility] Calcium 8.7 8.5 - 10.5 mg/dL [facility] Est Glomerular Filtration Rate 51(L) >=60 mL/min/1. 73 m?? [facility] Comment: This patient's estimated GFR was [...] Florian APRN CHEMISTRY ORDERABLES Performing Organization Address City/[facility]/ZIP Co de Phone Number [facility] [place] [address] * Vitamin D, 25-Hydroxy (09/07/2023 12:40 PM EST) Vitamin D Total 25 OH 32 21 - 100 ng/mL [facility] Vit D Interp Sufficient [facility] Blood 09/07/2023 12:4 0 PM EST 09/07/2023 12:58 PM EST Narrative Resulting Agency Comment Spec In Lab Kriss Florian APRN CHEMISTRY ORDERABLES Performing Organization Address City/[facility] Co de Phone Number [facility] [place] [address] * Uric acid (09/07/2023 12:40 PM EST) Uric Acid 6.0 2.5 - 6.5 mg/dL [facility] Blood 09/07/2023 12:4 0 PM EST 09/07/2023 12:58 PM EST Narrative Resulting Agency Comment Spec In Lab Kriss Florian APRN CHEMISTRY ORDERABLES Performing Organization Address City/[facility] Co de Phone Number [facility] [place] [address] * (ABNORMAL) PTH (09/07/2023 12:40 PM EST) Parathyroid Hormone 75(H) 15 - 65 pg/mL [facility] Blood 09/07/2023 12:4 0 PM EST 09/07/2023 12:58 PM EST Narrative Resulting Agency Comment Spec In Lab Kriss Florian APRN CHEMISTRY ORDERABLES Performing Organization Address City/[facility]/ZIP Co de Phone Number [facility] [place] [address] * Phosphorus (09/07/2023 12:40 PM EST) Phosphorus 4.2 2.5 - 4.5 mg/dL [facility] Blood 09/07/2023 12:4 0 PM EST 09/07/2023 12:58 PM EST Narrative Resulting Agency Comment Spec In Lab Kriss Stephy Chiqui EXPEDITER SERVICE ORDER CHEMISTRY ORDERABLES Performing Organization Address City/[facility] Co de Phone Number [facility] [place] [address] documented in this encounter Visit Diagnoses Diagnosis Stage 3 chronic kidney disease, unspecified whether stage 3a or 3b CKD documented in this encounter Care Teams Revising Clerk Relationship Specialty Start Date End Date Destinee Bhatt APRN [address] [place] [address] PCP - General Family Medicine 08/23/20 documented as of this encounter
--- OUTSIDE RECORDS SUMMARY | 2024-06-27 18:20 | XMS_ITS | Encounter Summary ---
[place] [address] Care Team Providers Care Operator Prefinish Name Role Phone Marko Duffy DNP Primary Care Provider [phone] Reason for Visit * Reason Comments Skin Check Encounter Details Date Type Department Care Team (Late st Contact Info) Description 06/11/2020 2:15 PM EDT Office Visit Dermatology at [address] [phone] Benitez King MD [address] [facility] [place] [address] Neurodermatitis Social History Tobacco Use Types Packs/Day Years [...] documented as of this encounter Progress Notes * Benitez King MD - 06/11/2020 2:15 PM EDT Problem: Natalia Paredes is a 60-year-old woman who is referred today by Marko Duffy for evaluation of a ongoing dermatitis. Apparently is been there for about a year and tends to burn and sting. This was biopsied and apparently the punch biopsy results were consistent with allergic drug eruption although I do nothave the report today and I do not see it on ED /[facility] [place] [place] website. Patient states that she is disabledat home with chronic pain following back injury. Because the pandemic she has not been able to get out today and why and physical therapy for exercise and to the pool at the comforting where she usedto go for PT directed exercise as well. She is [...] them.. Wear cotton gloves during the day to help prevent this from occurring. 4. Patient's frustration with her disability and associated pain may be in fact playing a role withthe neurodermatitis. She was previously taking 800 mg of ibuprofen 3-4 times a day until she was told to stop because of developing renal disease. 5. [...] Diagnoses Diagnosis Neurodermatitis Lichenification and lichen simplex chronicus documented in this encounter Care Teams Operator Prefinish Relationship Specialty Start Date End Date Marko Duffy DNP PCP - General Family Medicine 07/10/19 08/22/20 documented as of this encounter
--- OUTSIDE RECORDS SUMMARY | 2024-06-27 18:20 | XMS_ITS | Encounter Summary ---
[place] [address] Care Team Providers Care Drywall Contractor Name Role Phone Marko Duffy DNP Primary Care Provider [phone] Encounter Details Date Type Department Care Team (Latest Contact Info) Description 04/07/2020 2:00 PM EDT Laboratory Appointment Lab [address] [place] [phone] Chronic kidney disease, unspecified CKD stage; CKD (chronic kidney disease) stage 3, GFR [...] Date/Time Associated Diagnosis Comments HC VENIPUNCTURE Routine 04/07/2020 1:55 PM EDT Chronic kidney disease, unspecified CKD stage documented in this encounter Results * (ABNORMAL) Basic Metabolic Panel (non-fasting) (04/07/2020 1:55 PM EDT) Glucose 135 65 - 199 mg/dL [facility] Comment:Diabetes: >=200 mg/d L plus symptoms Blood Urea Nitrogen 16 8 - 18 mg/dL [facility] Creatinine 1.13 0.70 - 1.20 mg/dL [facility] Sodium 142 135 - 145 mmol/L [facility] Potassium 4.0 3.5 - 5.0 mmol/L [facility] Comment: Please note: ??Patients with WBC >100,000 may have falsely elevated Potassium levels. ??For accurate Potassium quantification in these patients send serum separator tube (gold top) for subsequent determinations. ??Contact the Clinical Chemistry Laboratory if there are any questions. Chloride 104 98 - 107 mmol/L [facility] Carbon Dioxide 24 22 - 31 mmol/L [facility] Anion Gap 14 5 - 15 mmol/L [facility] Calcium 8.2(L) 8.5 - 10.5 mg/dL [facility] Est Glomerular Filtration Rate 53(L) >=60 mL/min/1. 73 m?? [facility] Comment: The eGFR was calculated using the CKD-EPI equation. As with all creatinine based estimates of kidney function, eGFR values calculated with the CKD-EPI equation are not accurate in patients with acute kidney failure, extremes of body mass or the acutely ill. [email or web address] eGFR 61 >=60 mL/min/1. 73 m?? [facility] Comment: The eGFR was calculated using the CKD-EPI equation. As with all creatinine based estimates of kidney function, eGFR values calculated with the CKD-EPI equation are not accurate in patients with acute kidney failure, extremes of body mass or the acutely ill. [email or web address] Blood specimen (specimen) 04/07/2020 1:55 PM EDT 04/07/2020 2:05 PM EDT Narrative Resulting Agency Comment Spec In Lab Benitez Adames MD CHEMISTRY ORDERABLES [facility] [place] [address] documented in this encounter Visit Diagnoses Diagnosis Chronic kidney disease, unspecified CKD stage CKD (chronic kidney disease) stage 3, GFR 30-59 ml/min Chronic kidney disease, Stage III (moderate) documented in this encounter Care Teams Drywall Contractor Relationship Specialty Start Date End Date Marko Duffy DNP PCP - General Family Medicine 07/10/19 08/22/20 documented as of this encounter
--- OUTSIDE RECORDS SUMMARY | 2024-06-27 18:20 | XMS_ITS | Encounter Summary ---
[place] [address] Care Team Providers Care Escape Wheel Tooth Cutter Name Role Phone Destinee Bhatt APRN Primary Care Provider [phone] Encounter Details Date Type Department Care Team (Late st Contact Info) Description 02/13/2024 Telephone [place] [phone] Yolanda Chan Social History Tobacco Use Types Packs/Day Years [...] encounter Miscellaneous Notes * Telephone Encounter - Yolanda Chan - 02/13/2024 2:27 PM EDT LM for patient to call and schedule a follow up appointment documented in this encounter Plan of Treatment Not on file documented as of this encounter Visit Diagnoses Not on filedocumented in this encounter Care Teams Escape Wheel Tooth Cutter Relationship Specialty Start Date End Date Destinee Bhatt APRN [address] [place] [address] PCP - General Family Medicine 08/23/20 documented as of this encounter
--- OUTSIDE RECORDS SUMMARY | 2024-06-27 18:21 | XMS_ITS | Encounter Summary ---
Author Organization [facility] [place] [address] Care Team Providers Care Locker Room Manager Name Role Phone Mikala Cortez APRN Primary Care Provider + Encounter Details Date Type Department Care Team (Late st Contact Info) Description 08/03/2010 [place] [id number] Lambert Humphrey SPINNER OPEN END [facility] [place] [address] Social History Tobacco Use Types Packs/Day Years Used Date Smoking Tobacco: Never Assessed Sex and Gender Information Value Date Recorded Sex Assigned at Not on file Gender Identity Not on file Sexual Orientation Not on file documented as of this encounter Plan of Treatment Not on file documented as of this encounter Procedures Procedure Name Priority Date/Time Associated Diagnosis Comments DIFFERENTIAL, AUTOMATED Routine 08/03/2010 2:58 PM EDT IRON AND TIBC Routine 08/03/2010 2:58 PM EDT CBC (WITH DIFF) Routine 08/03/2010 2:58 PM EDT FOLATE, SERUM Routine 08/03/2010 2:58 PM EDT VITAMIN B12 Routine 08/03/2010 2:58 PM EDT COMPREHENSIVE METABOLIC PANEL Routine 08/03/2010 2:58 PM EDT documented in this encounter Results * (ABNORMAL) IRON AND TIBC (08/03/2010 2:58 PM EDT) [facility] Iron 59 30 - 150 mcg/dL [facility] TIBC 367 250 - 450 mcg/dL [facility] Iron Saturation 16(L) 20 - 50 % [facility] Blood specimen (specimen) 08/03/2010 2:58 PM EDT 08/03/2010 3:04 PM EDT Tracia O'Faby SPINNER OPEN END CHEMISTRY ORDERABLES Performing Organization Address [facility] de Phone Number [facility] * FOLATE (08/03/2010 2:58 PM EDT) [facility] Folate >20.0 7.4 - 35.0 ng/mL [facility] Blood specimen (specimen) 08/03/2010 2:58 PM EDT 08/03/2010 3:04 PM EDT Tracia Jose'Faby SPINNER OPEN END CHEMISTRY ORDERABLES Performing Organization Address [facility] de Phone Number [facility] * VITAMIN B12 (08/03/2010 2:58 PM EDT) [facility] Vitamin B12 591 207 - 974 pg/mL [facility] Blood specimen (specimen) 08/03/2010 2:58 PM EDT 08/03/2010 3:04 PM EDT Tracia Jose'Faby SPINNER OPEN END CHEMISTRY ORDERABLES Performing Organization Address [facility] Co de Phone Number [facility] * (ABNORMAL) COMPREHENSIVE METABOLIC PANEL (NON-FASTING) (08/03/2010 2:58 PM EDT) [facility] Glucose 90 <=199 mg/dL [facility] Comment:Diabetes: >=200 mg/d L plus symptoms Blood Urea Nitrogen 13 8 - 18 mg/dL [facility] MILLENNI[facility] Creatinine 0.76 0.70 - 1.20 mg/dL [facility] MILLENNI[facility] Sodium 143 135 - 145 mmol/L [facility] MILLENNIUM Potassium 3.5 3.5 - 5.0 mmol/L [facility] MILLENNI[facility] Comment: Please note: ??Patients with WBC >100,000 may have falsely elevated Potassium levels. ??For accurate Potassium quantification in these patients send serum separator tube (gold top) for subsequent determinations. ??Contact the Clinical Chemistry Laboratory if there are any questions. Chloride 102 98 - 107 mmol/L [facility] MILLENNI[facility] Carbon Dioxide 27 22 - 31 mmol/L [facility] MILLENNI[facility] Anion Gap 14 5 - 15 mmol/L [facility] MILLENNI[facility] Calcium 9.5 8.5 - 10.5 mg/dL [facility] MILLENNI[facility] Protein, Total 7.5 6.4 - 8.3 gm/dL [facility] MILLENNI[facility] Albumin 4.6 3.2 - 5.2 gm/dL [facility]ILL[facility] Aspartate Aminotransferase 36(H) 0 - 30 unit/L [facility] MILLENNI[facility] Alanine Aminotransferase 61(H) 0 - 30 unit/L [facility] MILLENNIUM Alkaline Phosphatase 136(H) 40 - 104 unit/L [facility] MILLENNIUM Bilirubin, Total 0.5 0.2 - 1.3 mg/dL [facility] MILLENNI[facility] Bilirubin, Direct 0.1 0.0 - 0.3 mg/dL [facility] MILLENNI[facility] Est Glomerular Filtration Rate >60 >=60 [facility] MILLENNIUM Comment: The National Kidney Disease Education Program (NKDEP) has recommended all laboratories report estimated GFR (eGFR) along with plasma creatinine measurements to assist you with recognition of early kidney disease. Caveats: ??Plasma creatinine should be at steady-state (unchanged within the past week). ??Patient age > = 18 years, and for Americans multiply eGFR by 1.2. At present, NKDEP does NOT recommend using the MDRD equation for drug dosing purposes and pharmacists should continue to use their current dosing methods. In addition, numerical eGFR values greater than 60 ml/min/1.73 square meters should be treated as > 60, and not an exact number due to greater inaccuracies at these higher values. Per NKDEP, they classify normal renal function as any GFR >60ml/min/1.73 square meters; chronic kidney disease when GFR <60, and renal failure when GFR <15. ??This calculation may not be valid for patients with atypical muscle mass (very lean or obese), acute renal failure, and in patients with diabetic kidney disease. References: http://nkdep.nih.gov/resources/NKDEP_Suggestn4Labs_0606_508.pdf http://www.kidney.org/professionals/kls/pdf/faq_gfr.pdf Blood specimen (specimen) 08/03/2010 2:58 PM EDT 08/03/2010 3:04 PM EDT Lambert Humphrey SPINNER OPEN END CHEMISTRY ORDERABLES [facility] * REFLEX LAB-A-DIFF (08/03/2010 2:58 PM EDT) Neutrophil % 66.4 34.0 - 71.0 % [facility]ERNER MILLENNIUM Neutrophil Absolute 5.51 1.50 - 6.30 x10(3)/mcL [facility] MILLENNI[facility] Lymph % 22.2 19.0 - 53.0 % CERNER MILLENNIUM Lymphocytes Abs 1.9 1.0 - 3.6 x10(3)/mcL CERNER MILLENNIUM Monocyte % 9.7 4.0 - 13.0 % CERNER MILLENNIUM Monocyte Abs 0.8 0.2 - 1.0 x10(3)/mcL [facility] MILLENNIUM Eos % 1.3 0.0 - 7.0 % CERNER MILLENNIUM Eosinophils Abs 0.1 0.0 - 0.5 x10(3)/mcL CERNER MILLENNIUM Basophil % 0.2 0.0 - 2.0 % CERNER MILLENNIUM Baso Absolute 0.0 0.0 - 0.2 x10(3)/mcL [facility]ERNER MILLENNIUM Immature Gran % 0.20 0.00 - 0.66 % CERNER MILLENNIUM Comment: Immature granulocytes(IG's)percentage and absolute count will include metamyelocytes, myelocytes, and promyelocytes. Blood smears from CBC's yielding IG's will be scanned manually for concordance. If this scan disagrees with the automated IG or if promyelocytes are noted, a manual differential will be performed. Immature Gran Absolute 0.02 0.00 - 0.05 x10(3)/mcL [facility] MILLENNIUM Blood specimen (specimen) 08/03/2010 2:58 PM EDT 08/03/2010 3:04 PM EDT Trajamesa JoseTaoFaby [facility] HEMATOLOGY ORDERABLE S [facility] MEGANENNIUM * (ABNORMAL) CBC (08/03/2010 2:58 PM EDT) Pathologist [facility] White Blood Cell 8.3 4.0 - 10.0 x10(3)/mc L CERNER MILLENNIUM Red Blood Cell 4.34 3.93 - 5.22 x10(6)/mc L CERNER MILLENNIUM Hemoglobin 12.7 11.2 - 15.7 gm/dL CERNER MILLENNIUM Hematocrit 41.1 34.0 - 45.0 % CERNER MILLENNIUM Mean Cell Volume 94.7(H) 79.0 - 94.0 fL CERNER MILLENNIUM Mean Cell Hemoglobin 29.3 26.6 - 32.2 pg CERNER MILLENNIUM Mean Cell Hemoglobin Concentration 30.9(L) 32.0 - 36.5 gm/dL CERNER MILLENNIUM Platelet 257 145 - 370 x10(3)/mc L CERNER MILLENNIUM RDW Standard Deviation 48.8(H) 35.0 - 46.0 fL CERNER MILLENNIUM RDW coefficient of variation 14.1 10.9 - 14.4 % CERNER MILLENNIUM Mean Platelet Volume 10.4 9.0 - 12.0 fL [facility] MILLENNIUM Blood specimen (specimen) 08/03/2010 2:58 PM EDT 08/03/2010 3:04 PM EDT Lambert Humphrey APRN HEMATOLOGY ORDERABLE S CERDEE APPLEIUM documented in this encounter Visit Diagnoses Not on filedocumented in this encounter Care Teams Locker Room Manager Relationship Specialty Start Date End Date Mikala Cortez APRN PCP - General 09/13/10 05/16/16 documented as of this encounter
--- OUTSIDE RECORDS SUMMARY | 2024-06-27 18:21 | XMS_ITS | Encounter Summary ---
[place] [address] Care Team Providers Care Target Network Analyst Name Role Phone Mikala Cortez APRN Primary Care Provider + Encounter Details Date Type Department Care Team (Late st Contact Info) Description 06/12/2011 [place] [phone] Cadence Peters, RN Social History Tobacco Use Types Packs/Day Years Used Date Smoking Tobacco: Never Assessed Sex and Gender Information Value Date Recorded Sex Assigned at Not on file Gender Identity Not on file Sexual Orientation Not on file documented as of this encounter Plan of Treatment Not on file documented as of this encounter Visit Diagnoses Not on filedocumented in this encounter Care Teams Target Network Analyst Relationship Specialty Start Date End Date Mikala Cortez APRN PCP - General 09/13/10 05/16/16 documented as of this encounter
--- OUTSIDE RECORDS SUMMARY | 2024-06-27 18:21 | XMS_ITS | Encounter Summary ---
Author Organization [facility] Address [address] [place] [address] Care Team Providers Care Barbering Instructor Name Role Phone Unavailable Primary Care Provider Unavailabl e Encounter Details Date Type Department Care Team (Late st Contact Info) Description 12/02/2009 Orders Only [facility] Laboratory Services - [facility] ([facility] [address] [place], [place] [id number] Charanjit Adams MD [address] [place] [address] Social History Tobacco Use Types Packs/Day Years Used Date Smoking Tobacco: Never Assessed Sex and Gender Information Value Date Recorded Sex Assigned at Not on file Gender Identity Not on file Sexual Orientation Not on file documented as of this encounter Plan of Treatment Not on file documented as of this encounter Procedures Procedure Name Priority Date/Time Associated Diagnosis Comments SURGICAL PATHOLOGY Routine 12/02/2009 0:00 EST documented in this encounter Results * SURGICAL PATHOLOGY (12/02/2009 0:00 EST) Pathology Report: SURGICAL PATHOLOGY REPORT ? Reports generated via electronic interface contain original data; ? however they are lacking the format of the original report. ? Caution should be taken when reading/interpreti ng unformatted reports. ? Name: ? HARRIS, LAURA ? Accession #: ? [id number] ? : ? 1960 (Age: 49) ??F ? Collect Date: ? 12/02/2009 ? Location: ? [facility] ? Receive Date: ? 12/03/2009 ? Provider: CHARANJIT ADAMS MD ? Copy to: JAMES MOODY COATING MIXER ? Final Pathologic Diagnosis: ? Esophagus, 35 cm, biopsies: ? 1. ?Gastric-type oxyntic mucosa with fundic gland polyps. ? 2. ? Squamous epithelium with reactive epithelial changes. ? Document reviewed and electronically signed by: ? Joni Daniels MD for ADAM CAO MD ? Report ??Date: 12/06/2009 16:20 ? By the signature above, the attending physician certifies that he/she has ? personally conducted a gross and/or microscopic examination of the described ? specimens and rendered or confirmed the above diagnosis. ? Specimen(s) Received: ? Bx esophagus at 35 cm ? Clinical History: ? Epigastric pain; GERD; R/O biliary tract symptoms ? Gross Description: ? Received in formalin labelled Laura Harris and bx 35 cm esophagus are four desouza-pink soft tissues averaging 0.3 x 0.2 x 0.2 cm in size. ??Submitted entirely as (A1) and (A2). ??(Dr. Myles)/kmm ? End of Report ? [facility] 12/02/2009 12/03/2009 16: 39 EST Charanjit Adams MD PATHOLOGY ORDERABLE S Performing Organization Address City/State/[facility] Co de Phone Number [facility] [address] [place] [address] documented in this encounter Visit Diagnoses Not on filedocumented in this encounter
--- OUTSIDE RECORDS SUMMARY | 2024-06-27 18:21 | XMS_ITS | Encounter Summary ---
Author Organization [facility] [place] [address] Care Team Providers Care Muck Miner Blasting Name Role Phone Mikala Cortez APRN Primary Care Provider + Reason for Visit * Reason Onset Date Comments GI Problem 01/27/2011 Encounter Details Date Type Department Care Team (Late st Contact Info) Description 01/27/2011 [place] [address] Lambert Humphrey APRN [facility] [place] [address] GI Problem Social History Tobacco Use Types Packs/Day Years Used Date Smoking Tobacco: Never Assessed Sex and Gender Information Value Date Recorded Sex Assigned at Not on file Gender Identity Not on file Sexual Orientation Not on file documented as of this encounter Miscellaneous Notes * Telephone Encounter - Lambert Humphrey - 01/27/2011 3:06 PM EDT Spoke with pt, protonix 40mg qd, working well for reflux and dyspepsia. Dysgeusia, impedance on meds nl. ?dysgeusia ENT related, pt to f/u with pcp. ?nasal flushes. IBS: several loose stools in am. Will consider bentyl 10-20mg qhs, and prn. Colonoscopy 2009 nl. Pt to call gi with progress. documented in this encounter Plan of Treatment Not on file documented as of this encounter Visit Diagnoses Not on filedocumented in this encounter Care Teams Muck Miner Blasting Relationship Specialty Start Date End Date Mikala Cortez APRN PCP - General 09/13/10 05/16/16 documented as of this encounter
--- OUTSIDE RECORDS SUMMARY | 2024-06-27 18:21 | XMS_ITS | Encounter Summary ---
Author Organization [facility] Address [address] [place] [address] Care Team Providers Care Damaged Freight Inspector Name Role Phone Dale Gomez MD Primary Care Provider [phone] Encounter Details Date Type Department Care Team (Late st Contact Info) Description 07/11/2010 Results Only [facility] Laboratory Services - [facility] ([facility]) [address] [place], [place] [address] Mikala Cortez, AMMY [address] [place] [address] Social History Tobacco Use Types Packs/Day Years Used Date Smoking Tobacco: Never Assessed Sex and Gender Information Value Date Recorded Sex Assigned at Not on file Gender Identity Not on file Sexual Orientation Not on file documented as of this encounter Plan of Treatment Not on file documented as of this encounter Procedures Procedure Name Priority Date/Time Associated Diagnosis Comments CYTOPATHOLOGY Routine 07/11/2010 0:00 EDT documented in this encounter Results * CYTOPATHOLOGY (07/11/2010 0:00 EDT) Pathology Report: CYTOPATHOLOGY REPORT ? Reports generated via electronic interface contain original data; ? however they are lacking the format of the original report. ? Caution should be taken when reading/interpreti ng unformatted reports. ? Name: ? LAURA HARRIS ? Accession #: ? [id number] ? : ? 1960 (Age: 50) ??F ?Collect Date: ? 07/11/2010 ? Location: ? [facility] ? Receive Date: ? 07/12/2010 ? Provider: RAMIREZ HEIDY SPINNING MACHINE OPERATOR ? Copy to: ? Final Report ? SPECIMEN ADEQUACY ? Satisfactory for Evaluation ? - assessment of transformation zone component not applicable ( e.g. atrophy, ? vaginal sample, hysterectomy) ? GENERAL CATEGORIZATION ? Negative for Intraepithelial Lesion or Malignancy ? Last Menstural Period: 3 yrs ? Infection History: Linda: 2008 ? Bacterial vaginosis: 2007 ? Other: Additional clinical information: Dysmenorrhea, abnormal pap 1993 repeat ?? pap WNL ? HPVDX - HPV testing requested regardless of diagnosis on current ThinPrep Pap ?? test. ? Specimen/Source: ??Pap Test, Cervix/Endocervix, ThinPrep Imaging System with ? manual evaluation ? Document reviewed and electronically signed by: ? Taylor [place],CT(ASCP) ? Report ??Date: 07/18/2010 09:54 ? HPV with Pap Test ? Date Ordered: ? 07/18/2010 ? Status: ?? Signed Out ?Date Complete: ? 07/20/2010 ? By: ??System Interface ? Date Reported: ? 07/20/2010 ? Interpretation ? RESULT: Negative for HPV types 16, 18, 31, 33, 35, 39, 45, 51, ??with ? dysplasia and some cervical cancers. ? Comments ? Document reviewed and electronically signed by: ? System Interface ? Report date: 07/20/2010 ? By the signature above, the attending physician certifies that he/she has ? personally conducted a gross and/or microscopic examination of the described ? specimens and rendered or confirmed the above diagnosis. ? End of Report ? [facility] 07/11/2010 07/12/2010 Mikala Cortez SPINNING MACHINE OPERATOR PATHOLOGY ORDERABLES [facility] [address] [place] [address] documented in this encounter Visit Diagnoses Not on filedocumented in this encounter Care Teams Damaged Freight Inspector Relationship Specialty Start Date End Date Dale Gomez MD [address] [place] [address] PCP - General 12/06/09 09/20/22 documented as of this encounter
--- OUTSIDE RECORDS SUMMARY | 2024-06-27 18:21 | XMS_ITS | Encounter Summary ---
[place] [address] Care Team Providers Care Technology Trainer Name Role Phone Mikala Cortez APRN Primary Care Provider + Encounter Details Date Type Department Care Team (Latest Contact Info) Description 12/14/2010 3:00 PM EST Procedure [place] [phone] CLINIC, Karen Charles, developmental therapist Disposition: Home Social History Tobacco Use Types Packs/Day Years Used Date Smoking Tobacco: Never Assessed Sex and Gender Information Value Date Recorded Sex Assigned at Not on file Gender Identity Not on file Sexual Orientation Not on file documented as of this encounter Plan of Treatment Not on file documented as of this encounter Visit Diagnoses Not on filedocumented in this encounter Care Teams Technology Trainer Relationship Specialty Start Date End Date Mikala Cortez APRN PCP - General 09/13/10 05/16/16 documented as of this encounter
--- OUTSIDE RECORDS SUMMARY | 2024-06-27 18:21 | XMS_ITS | Referral Summary ---
Author Organization [facility] Address [address] [place] [address] Care Team Providers Care Channel Marketing Specialist Name Role Phone Evangelina Bhatty MARK Primary Care Provider [phone] Social History Tobacco Use Types Packs/Day Years Used Date Smoking Tobacco: Never Assessed Interpersonal Safety Answer Date Record ed Physically Hurt Never 05/23/2020 Verbally Threaten Not on file 05/23/2020 Sex and Gender Information Value Date Recorded Sex Assigned at Not on file Gender Identity Not on file Sexual Orientation Not on file Plan of Treatment Not on file Care Teams Channel Marketing Specialist Relationship Specialty Start Date End Date Destinee Bhatt FNP [address] [facility] [address] [place] [address] PCP - General 09/21/22
--- OUTSIDE RECORDS SUMMARY | 2024-06-27 18:21 | XMS_ITS | Encounter Summary ---
Author Organization [facility] Address [address] [place] [address] Care Team Providers Care Zone Supervisor Firearms Name Role Phone Dale Gomez MD Primary Care Provider [phone] Encounter Details Date Type Department Care Team (Late st Contact Info) Description 03/13/2019 Results Only [facility] [phone] Cat Poon, DNP [address] [place] [phone] Social History Tobacco Use Types Packs/Day Years Used Date Smoking Tobacco: Never Assessed Sex and Gender Information Value Date Recorded Sex Assigned at Not on file Gender Identity Not on file Sexual Orientation Not on file documented as of this encounter Plan of Treatment Not on file documented as of this encounter Procedures Procedure Name Priority Date/Time Associated Diagnosis Comments SURGICAL PATHOLOGY Routine 03/13/2019 15 :38 EDT documented in this encounter Results * SURGICAL PATHOLOGY (03/13/2019 15:38 EDT) Pathology Report: SURGICAL PATHOLOGY REPORT Reports generated via electronic interface contain original data; however they are lacking the format of the original report. Caution should be taken when reading/interpret ing unformatted reports. Name: ? LAURA HARRIS ? Accession #: ? [id number] ? : ? 1960 (Age: 58) ??F ? Collect Date: ? 03/13/2019 ? Location: ? [facility] ? Receive Date: ? 03/14/2019 ? Provider: CAT DUFFY KIT [facility] Copy to: DIANNA ALELN SPARMAKER ? Final Pathologic Diagnosis: A. ??SKIN OF ARM, LEFT, PUNCH BIOPSY: - Lichenoid/interfa ce dermatitis. ??See microscopic and comment. B. ??SKIN OF LEG, LEFT, SHAVE BIOPSY: - Lichenoid/interfa ce dermatitis. ??See microscopic and comment. Comment: The histologic findings are nonspecific and show a lichenoid/interfa ce dermatitis. ??The differential diagnosis would include a lichenoid drug eruption, lichen planus or connective tissue disease. ??The degree of inflammation and epidermal changes are not that classic for lichen planus. ??There is no evidence of deep inflammation surrounding blood vessels or adnexal structures to favor a connective tissue disorder though clinical correlation should be made. ??A rare eosinophils is seen, favoring a lichenoid drug eruption. ??Clinical correlation is recommended. ??(Dr. Mahoney)/[facility] Microscopic Description: The shave biopsies from the left arm and left leg show similar findings. ??Both biopsies show a patchy distribution of vacuolated keratinocytes with lymphocytic exocytosis and scattered apoptotic bodies along the junction. ??The stratum corneum shows basketweave orthokeratosis. ??Inflammation is patchy within the dermis and situated predominantly around superficial vessels and within the surrounding interstitium. ??The inflammation is composed predominantly of mature-appearing lymphocytes. ??A rare eosinophil is seen. ??Multiple levels are examined of parts A and B and show similar findings. ??(Dr. Mahoney)/[facility] Document reviewed and electronically signed by: MESSI MAHONEY MD Report ??Date: 03/18/2019 15:00 By the signature above, the attending physician certifies that he/she has personally conducted a gross and/or microscopic examination of the described specimens and rendered or confirmed the above diagnosis. Specimen(s) Received: A. ??Left arm punch biopsy (#1) B. ??Left leg shave biopsy (#2) Clinical History: Rash, skin; clinical diagnosis code: R21 Gross Description: A. ?Received in formalin labelled with proper patient identification (initials L, K) and left arm is a punch biopsy of white skin (0.3 cm in diameter x 0.1 cm in thickness). The specimen is submitted intact in A1. B. ?Received in formalin labelled with proper patient identification (initials L, K) and left leg is a shave biopsy of pearly white skin (0.3 x 0.2 x 0.1 cm). The specimen is inked and submitted in B1. [facility]IV[facility] 03/14/2019 4:11 PM End of Report [facility] 03/13/2019 15:3 8 EDT 03/14/2019 15:38 EDT Cat Duffy KIT [facility] PATHOLOGY ORDERAB LES [facility] [address] [place] [address] documented in this encounter Visit Diagnoses Not on filedocumented in this encounter Care Teams Zone Supervisor Firearms Relationship Specialty Start Date End Date Dale Gomez MD [address] [place] [address] PCP - General 12/06/09 09/20/22 documented as of this encounter
--- OUTSIDE RECORDS SUMMARY | 2024-06-27 18:21 | XMS_ITS | Encounter Summary ---
Author Organization [facility] Address [address] [place] [address] Care Team Providers Care It Desktop Support Specialist Name Role Phone Dale Gomez MD Primary Care Provider [phone] Encounter Details Date Type Department Care Team (Late st Contact Info) Description 11/11/2003 Results Only [facility] - Maple conversion [address] [place] [address] Dale Sanchez MD [address] [place] [phone] Social History Tobacco Use Types Packs/Day Years Used Date Smoking Tobacco: Never Assessed Sex and Gender Information Value Date Recorded Sex Assigned at Not on file Gender Identity Not on file Sexual Orientation Not on file documented as of this encounter Plan of Treatment Not on file documented as of this encounter Procedures Procedure Name Priority Date/Time Associated Diagnosis Comments SURGICAL PATHOLOGY Routine 11/11/2003 0:00 EST documented in this encounter Results * SURGICAL PATHOLOGY (11/11/2003 0:00 EST) Pathology Report: SURGICAL PATHOLOGY REPORT Reports generated via electronic interface contain original data; however they are lacking the format of the original report. Caution should be taken when reading/interpretin g unformatted reports. Name: ? LAURA HARRIS ? Accession #: ? [id number] ? : ? 1960 (Age: 43) ??F ? Collect Date: ? 11/11/2003 ? Location: ? [facility] ? Receive Date: ? 11/11/2003 ? Provider: RENE SANCHEZ MD Copy to: JAMES MOODY NATURAL RESOURCE ECONOMIST ? Final Pathologic Diagnosis: ? Gastroesophageal junction, biopsy: 1. ?Hyperplastic gastroesophageal junction-type mucosa with mild chronic inflammation. 2. ?Negative for Helicobacter pylori-like microorganisms on H&E staining. Comment: ? The histologic features are compatible with mild reflux changes. ??(Dr. Sue)/[employer] Document reviewed and electronically signed by: Giorgi Olsen MD Report ??Date: 11/13/2003 15:53 By the signature above, the attending physician certifies that he/she has personally conducted a gross and/or microscopic examination of the described specimens and rendered or confirmed the above diagnosis. Specimen(s) Received: ? GE junction bx Clinical History: ? R/O GERD Gross Description: ? Received in Hollande's fixative labelled Harris and GE junction is a 0.2 x 0.1 x 0.1 cm desouza soft tissue biopsy. ??The specimen is entirely submitted in one cassette. ??(Rebeka Barcenas)/[facility] End of Report [facility] 11/11/2003 11/11/2003 15: 16 EST Dale Sanchez MD PATHOLOGY ORDERABLES [facility] [address] [place] [address] documented in this encounter Visit Diagnoses Not on filedocumented in this encounter Care Teams It Desktop Support Specialist Relationship Specialty Start Date End Date Dale Gomez MD [address] [place] [phone] PCP - General 12/06/09 09/20/22 documented as of this encounter
--- OUTSIDE RECORDS SUMMARY | 2024-06-27 18:21 | XMS_ITS | Encounter Summary ---
Author Organization [facility] [place] [address] Care Team Providers Care Drier Operator Name Role Phone Stephany Allen APRN Primary Care Provider [phone] Reason for Visit * Reason Comments Pain Management Back Pain Knee Pain right Ankle Pain left * Consultation (Routine) - Closed Specialty Diagnoses / Procedures Referred By Pedro colunga Referred To Contact Pain Management Diagnoses ankle pain, back pain Procedures ankle pain, back pain Stephany Allen APRN [address] [place] [address] DR ALBA [address] [place] [address] [facility] [address] [place] [phone] Referral ID Status Reason Start Date Expiration Date Visits Re quested Visits Authorized [id number] Closed 07/21/2016 07/21/2017 1 1 Encounter Details Date Type Department Care Team (Late st Contact Info) Description 08/03/2016 12:30 PM EDT Office [place] [phone] Shu Juárez APRN [facility] [place] [address] Spondylosis of lumbar region without myelopathy or radiculopathy; Facet arthropathy, lumbar Social History Tobacco Use Types Packs/Day Years Used Date Smoking Tobacco: Never Smokeless Tobacco: Never Sex and Gender Information Value Date Recorded [...] documented in this encounter Progress Notes * Shu Juárez, BASKET ASSEMBLER - 08/03/2016 12:30 PM EDT PAIN CLINIC FOLLOW-UP DATE OF VISIT 08/03/2016 Patient Lena Alexandre 1960 REFERRING PROVIDER Stephany Allen APRN [address], [facility] [address] [place] [address] PRIMARY CARE PROVIDER STEPHANY ALLEN APRN CHIEF COMPLAINT: Chronic pain management follow-up HPI: Lena Alexandre is a 56 year-old female initially seen by Dr. Rubio on 07/20/16 in the [facility] for back pain. She has [...] metabolites, as well as hydrocodone + metabolites (not being prescribed as far as our records indicate). When I asked her about this today she stated that she took a friend's Vicodin since she could attend another fair. She became very tearful and stated that if she is unable to walk around with the therapist that she will lose her friends and thatis why she is taking her friend's medications. INTERVAL HISTORY: [...] times daily. Yes Mometasone (NASONEX) 50 mcg/Actuation [place] by Nasal route. Yes acetaminophen (TYLENOL) 500 [...] puff into the lungs 2 times daily. Yes MULTI-VITAMIN ORAL Take 1 tablet [...] with pain and new doctors; + history anxiety/depression- sees counselor every 1-2 weeks; denies suicidal/homicidal ideations [...] in the lumbar spine with extension, positive Rosas'sbilaterally. Gait steady, no ambulatory aides. RADIOGRAPHIC STUDIES [...] consistent with lumbar spondylosis and facet arthropathy. Shehad a T12 burst fracture in the back, but currently her low back is the generator of her pain. She has no concerning symptoms of radiculopathy or myelopathy. She has tried multiple medications in thepast including antidepressives, anticonvulsants, nonsteroidals, and multiple opioids [...] exhibits mechanical low back pain and no obviousradicular signs or symptoms and she has no [...] causes of her current pain. Ms. Alexandre and I discussed all of this at length using [...] and Vicodin from friends in order to participatein social activities. I've advised her that this is an illegal activity, and that now she has had asecond inconsistent urine which is documented in our chart. I've advised her that her primary care provider will likely see this and that she may decide to taper her off her opioids. 5. Follow-up as needed. Lena Alexandre had the opportunity to ask questions and indicated that all questions were answered to her satisfaction. Shu Juárez, MSN, OPERATIVE SUPERVISOR-BC, BASKET ASSEMBLER Nurse Practitioner [facility] documented in this encounter Plan of Treatment Not on file documented as of this encounter Visit Diagnoses Diagnosis Spondylosis of lumbar region without myelopathy or radiculopathy Lumbosacral spondylosis without myelopathy Facet arthropathy, lumbar Lumbosacral spondylosis without myelopathy documented in this encounter Care Teams Drier Operator Relationship Specialty Start Date End Date Stephany Allen APRN PCP - General Family Medicine 05/17/16 05/21/19 documented as of this encounter
--- OUTSIDE RECORDS SUMMARY | 2024-06-27 18:21 | XMS_ITS | Encounter Summary ---
Author Organization [facility] Address [facility] [place] [address] Care Team Providers Care Watchmaker Apprentice Name Role Phone Stephany Molina APRN Primary Care Provider [phone] Reason for Visit * Reason Comments Pain Management Pain, Chronic Back Pain * Consultation ([facility]) - Closed Specialty Diagnoses / Procedures Referred By Contac t Referred To Contact Pain Management Diagnoses Chronic pain. Left ankle and back. Stephany Molina APRN [address] [place] [address] [facility] [address] [place] [address] [facility] [address] [place] [phone] Referral ID Status Reason Start Date Expiration Date V isits Requested Visits Authorized [id number] Closed Consult, Test & Treat Connection Center 05/17/2016 05/17/2017 1 1 Encounter Details Date Type Department Care Team (Late st Contact Info) Description 07/20/2016 5:00 PM EDT Office [place] [phone] Felipe Rubio MD [facility] [place] [address] Chronic bilateral low back pain without sciatica (Primary Dx); Encounter for long-term opiate analgesic use Social History Tobacco Use Types Packs/Day Years [...] documented in this encounter Progress Notes * Felipe Rubio MD - 07/20/2016 5:00 PM [...] on a cement parking garage. It was about a 7 foot fall. She sustained left ankle and right tibial plateau fractures. She also had a burstfracture at T12. She has some pain in the thoracic area, but not as frequently as she does in the low back. The back pain has been ongoing since the accident, but is not as severe as when she suffered the fall. The patient also has ongoing right knee, left ankle pain since the accident but the patient has nothad orthopedic evaluation of knee or ankle in many years. The patient notes at one time she was on percocet, one per day. She notes that she asked if she could be changed to tylenol # 3. She has been on this for about 2-3 years. She thinks that percocet maywork better. The patient notes that recently she took a friend's percocet so that she could go to the fair. There are no notes forwarded from her PCP regarding this. The patient notes she had an aberrant urine. LOCATION: right lumbar area, left lumbar area [...] NOT TRIALED PT Pool tx yes x [phone] yes .Functional Gnosticist Program x 2004 yes TENS PROCEDURES/SURGERY TYPE [...] Patient Care Team section) Medical records reviewed? Worrisome findings? Stephany Molina APRN No-none available Unknown Other significant history History of DUI or DWI? Yes History of incarceration? No History of discharge from another pain provider? No History of an inconsistent Urine Drug Screen? Yes-recently took a friend's percocet and tested positive for nonprescribed opioids Current use of a benzodiazepine? Yes Current use of other FRAUD REPRESENTATIVE depressant? No Current diagnosis of Obstructive Seep [...] Zoloft [sertraline]; and Trazodone MEDICATIONS: Medications 07/20/16 5409 Medication Sig Taking? WELCHOL 625 mg Tablet Yes acetaminophen-codeine (TYLENOL #3) 300-30 mg Tablet Yes NEXIUM 40 mg Capsule, Delayed Release(E.C.) Yes lisinopril (PRINIVIL;ZESTRIL) 10 mg Tablet Yes prochlorperazine (COMPAZINE) 10 mg Tablet Yes fluticasone (FLONASE) 50 mcg/actuation [place], Suspension 1 spray daily. Yes melatonin 3 mg Tablet Take by mouth. Yes ferrous sulfate 325 mg (65 mg iron) Tablet Take 325 mg by mouth daily (with breakfast). Yes potassium chloride (MICRO-K) 10 mEq Capsule, Sustained Release Take 10 mEq by mouth 2 times daily. Yes Mometasone (NASONEX) 50 mcg/Actuation [place] by Nasal route. Yes acetaminophen (TYLENOL) 500 [...] may facetogenic pain in the low back Mariann would recommend lumbar spine plain films to assess her spine further. If she has evidence of lumbar spondylosis, consideration could be given to lumbar MBB/RF. This was not discussed in detail today. The patient has been taking tylenol #3 for her pain and has found percocet, which she has taken in the past, more helpful. To that effect, she took a friend's percocet recently and then had an aberrant urine. I do not have any notes from her current PCP, but according to the patient she is still willing to prescribe the single tylenol #3 (or possibly a single percocet ) per day. I indicated that we would not be willing to prescribe opioids for her in the Pain Clinic at [facility]. We discussed that her pain should be managed in a multimodal approach. She does go to pool therapy twice per week. We discussed that she needs to exercise more often than twice per week and she notesthat she can go to the pool more often. We discussed that she may also benefit from Cognitive Behavioral Therapy, where she could learn some tools for managing her pain. She has a new therapist in her area and they may be able to help her find someone who works with CBT. It is difficult to get into CBT at [facility] at this time due to staffing shortages. [...] Procedure Name Priority Date/Time Associated Diagnosis Comments DRUG SCREEN WITH CONFIRMATION, URINE (SEND OUT) Routine 07/20/2016 4:45 PM EDT Encounter for long-term opiate analgesic use BENZODIAZEPINE, URINE CONFIRMATION Routine 07/20/2016 4:45 PM EDT documented in this encounter Results * Benzodiazepine, Urine Quantitative (07/20/2016 4:45 PM EDT) U Benzo Conf See note [facility] Comment:Please see scanned r eport in Chart Review under the Non-DH Laboratory Heading. Urine specimen (specimen) 07/20/2016 4:45 PM EDT 07/21/2016 9:43 AM EDT Narrative Resulting Agency Comment Spec In Lab Felipe Rubio MD LAB SEND OUT ORDERAB LES [facility] [place] [address] * Drug Screen with Confirmation, Urine (07/20/2016 4:45 PM EDT) U VINNY w/Conf See note [facility] Comment:Please see scanned r eport in Chart Review under the Non-DH Laboratory Heading. Urine specimen (specimen) 07/20/2016 4:45 PM EDT 07/21/2016 9:43 AM EDT Narrative Resulting Agency Comment Spec In Lab Felipe Rubio MD URINE ORDERABLES [facility] [place] [id number] documented in this encounter Visit Diagnoses Diagnosis Chronic bilateral low back pain without sciatica- Primary Encounter for long-term opiate analgesic use Encounter for long-term (current) use of other medications documented in this encounter Care Teams Watchmaker Apprentice Relationship Specialty Start Date End Date Stephany Molina APRN PCP - General Family Medicine 05/17/16 05/21/19 documented as of this encounter
--- OUTSIDE RECORDS SUMMARY | 2024-06-27 18:21 | XMS_ITS | Encounter Summary ---
Author Organization [facility] Address [address] [place] [address] Care Team Providers Care Book Shelver Name Role Phone Dale Gomez MD Primary Care Provider [phone] Encounter Details Date Type Department Care Team (Late st Contact Info) Description 12/24/2002 Results Only [facility] - Maple conversion [address] [place] [address] Brittanie Judd, HUMAN SERVICES CASE MANAGER [address] [facility],[address] [phone] Social History Tobacco Use Types Packs/Day Years Used Date Smoking Tobacco: Never Assessed Sex and Gender Information Value Date Recorded Sex Assigned at Not on file Gender Identity Not on file Sexual Orientation Not on file documented as of this encounter Plan of Treatment Not on file documented as of this encounter Procedures Procedure Name Priority Date/Time Associated Diagnosis Comments CYTOPATHOLOGY Routine 12/24/2002 0:00 EST documented in this encounter Results * CYTOPATHOLOGY (12/24/2002 0:00 EST) Pathology Report: CYTOPATHOLOGY REPORT Reports generated via electronic interface contain original data; however they are lacking the format of the original report. Caution should be taken when reading/interpreti ng unformatted reports. Name: ? LAURA HARRIS ? Accession #: ? [id number] : ? 1960 (Age: 42) ??F ?Collect Date: ? 12/24/2002 Location: ? [facility] ? Receive Date: ? 12/26/2002 Provider: ?BRITTANIE JUDD HUMAN SERVICES CASE MANAGER Copy to: ? Specimen/Source: ?ThinPrep Pap Test, Vagina/Endocervix Last Menstrual Period: ? 12/20/02 Menstrual/Pregnanc y Status: ? Hormonal/Contracep tive Status: ? Oral contraceptives Previous Gynecologic Pathology: ? Yes: Cytolysis 10/20/94 Other: ? HPVA - HPV testing requested if ASC-US on the current ThinPrep Pap test. ? SPECIMEN ADEQUACY ? Satisfactory for Evaluation - transformation zone component present GENERAL CATEGORIZATION ? Negative for Intraepithelial Lesion or Malignancy ? Document reviewed and electronically signed by: ? RAUL Juarez(ASCP) ? Report Date: ??12/30/2002 08:59 End of Report [facility] 12/24/2002 12/26/2002 Brittanie Judd HUMAN SERVICES CASE MANAGER PATHOLOGY ORDERABLES [facility] [address] [place] [address] documented in this encounter Visit Diagnoses Not on filedocumented in this encounter Care Teams Book Shelver Relationship Specialty Start Date End Date Dale Gomez MD [address] [place] [phone] PCP - General 12/06/09 09/20/22 documented as of this encounter
--- OUTSIDE RECORDS SUMMARY | 2024-06-27 18:21 | XMS_ITS | Encounter Summary ---
[place] [address] Care Team Providers Care Commercial Glazier Name Role Phone Unavailable Primary Care Provider Unavailabl e Encounter Details Date Type Department Care Team (Late st Contact Info) Description 10/12/2009 Ancillary Procedure [place] [phone] Destinee Bhatt APRN [address] [place] [address] Social History Tobacco Use Types Packs/Day Years [...] Associated Diagnosis Comments FILM LIBRARY STORAGE ONLY MAMMO Routine 10/12/2009 12:00 AM EST documented in this encounter Results * Film Library- Storage Only Mammo (10/12/2009 12:00 AM EST) Narrative RAD - 02/27/2022 3:17 PM EDT This exam is auto-finalizing. It's purpose is for storage only. Destinee Bhatt APRN IMG FILM LIBRARY ORD ERABLES [place], [place] documented in this encounter Visit Diagnoses Not on filedocumented in this encounter
--- OUTSIDE RECORDS SUMMARY | 2024-06-27 18:21 | XMS_ITS | Encounter Summary ---
Author Organization [facility] Address [address] [place] [address] Care Team Providers Care Tank Car Inspector Name Role Phone MillerDestinee MARK Primary Care Provider [phone] Encounter Details Date Type Department Care Team (Late st Contact Info) Description 10/30/2022 Lab Requisition [facility] Pathology & Laboratory Medicine - [address] [address] Ki Bonner MD [address] [place] [phone] Encounter for screening for malignant neoplasm of colon Social History Tobacco Use Types Packs/Day Years [...] Priority Date/Time Associated Diagnosis Comments SURGICAL PATHOLOGY Today 10/30/2022 10 :00 EST Encounter for screening for malignant neoplasm of colon documented in this encounter Results * SURGICAL PATHOLOGY (10/30/2022 10:00 EST) Note to Patient The following pathology results have been interpreted by your pathologist and may be available to you before your health provider has had the opportunity to review them. Please allow time for your provider to receive these results and explore management options, if applicable. 11/02/2022 9:06 [facility] Final Diagnosis A. COLON, TRANSVERSE, POLYP, BIOPSY: - Tubular adenoma. B. RECTUM, POLYP, BIOPSY: - Hyperplastic polyp. - Deeper levels examined. 11/02/2022 9:06 [facility] Attestation There was significant resident/fellow involvement in the diagnostic evaluation of this case. By the signature below, the attending physician certifies that they have personally conducted a gross and/or microscopic examination of the described specimens and rendered or confirmed the above diagnosis. 11/02/2022 9:06 [facility] at 0906 Clinical History Colorectal screening 11/02/2022 9:06 [facility] Gross Description A. Received in formalin labelled with proper patient identification (initials L, K) and 1. Transverse colon polyp is a single desouza-brown polypoid tissue (0.4 x 0.2 x 0.2 cm). Submitted intact in A1. B. Received in formalin labelled with proper patient identification (initials L, K) and 2. Rectal polyp is a single desouza-brown polypoid tissue (0.3 x 0.2 x 0.2 cm). Submitted intact in B1. Elizabeth Palmer 10/31/2022 8:35 11/02/2022 9:06 [facility] Resident/Charly w: Ricky Baez MD 11/02/2022 9:06 [facility] Performing Lab [facility] 11/02/2022 9:06 [facility] Scanned Images 11/02/2022 9:06 [facility] Tissue SPECIMEN FROM RECTUM / Unknown 10/30/2022 10:00 EST 10/30/2022 19:31 EST Tissue specimen (specimen) SPECIMEN FROM RECTUM / Unknown 10/30/2022 10:00 EST 10/30/2022 19:31 EST Ki Bonner MD PATHOLOGY [facility] [address] [place] [address] documented in this encounter Visit Diagnoses Diagnosis Encounter for screening for malignant neoplasm of colon Special screening for malignant neoplasms, colon documented in this encounter Care Teams Tank Car Inspector Relationship Specialty Start Date End Date Destinee Bhatt FNP [address] [facility] [address] [place] [phone] PCP - General 09/21/22 documented as of this encounter
--- OUTSIDE RECORDS SUMMARY | 2024-06-27 18:21 | XMS_ITS | Encounter Summary ---
Author Organization [facility] Address [facility] [place] [address] Care Team Providers Care Tape Folding Machine Operator Name Role Phone Marko Duffy DNP Primary Care Provider [phone] Reason for Visit * Consultation (Routine) - Specialty Diagnoses / Procedures Referred By Contjayde t Referred To Contact Nephrology Diagnoses Disorder of kidney and ureter, unspecified Abnormal results of kidney function studies Unspecified hydronephrosis Personal history of urinary calculi KIDNEY DISEASE, ELEVATED CREATININE Marko Duffy DNP [address] [place] [address] [facility] [address] [place] [id number] Referral ID Status Reason Start Date Expiration Date V isits Requested Visits Authorized [id number] Consult, Test [facility] PCP Updated and/or Approved 06/24/2019 09/23/2019 6 6 Encounter Details Date Type Department Care Team (Latest Contact Info) Description 08/21/2019 3:00 PM EDT Office Visit Nephrology [place] [address] Benitez Adames MD [facility] [place] [address] Chronic kidney disease, unspecified CKD stage; Vitamin D insufficiency Social History Tobacco Use Types Packs/Day Years [...] Progress Notes * Benitez Adames MD - 08/21/2019 3:00 PM EDT PATIENT: Lena Alexandre : 1960 REASON FOR CONSULTATION: Cr elevateion HPI: 59-year-old female presents to renal clinic for evaluation of elevated creatinine. She believes that first noted in December 2018. She denies history of diabetes she denies known heart disease. She has a significant history of chronic pain stemming from musculoskeletal injuries. In this setting she has had significant nonsteroidal anti-inflammatory use. She is working with pain management in order to find another solution. Additionally she has a history of nephrolithiasis requiring lithotripsy in 2009. She believes this is the only episode of [...] Per availble data patient had rise in Crto 2.0mg/dl in 01/07. Prior to this most recent baseline in our system 0.76mg/DL in 2009. Dearth of data between. Known history of nehrolithiasis. External reports also mentions hydronephrosis on leftside (images unavailable) significant NSAID use. Believe that [...] Take 20 mg by mouth daily. ??? Qneiicu-Tvgagijwr-Vaxh 333-133-5 mg Tablet Take by mouth daily. [...] as needed. ??? Mometasone (NASONEX) 50 mcg/Actuation Sylvester by Nasal route as needed. ??? acetaminophen [...] Benitez Adames MD, MPH Section of Nephrology #[id number] documented in this encounter Plan of Treatment Not on file documented as of this encounter Procedures Procedure Name Priority Date/Time Associated Diagnosis Comments URINALYSIS MICROSCOPIC EXAM STAT 08/21/2019 4:42 PM EDT HC PROTEIN, QUANTITATIVE, URINE Routine 08/21/2019 4:42 PM EDT Chronic kidney disease, unspecified CKD stage HC PROTEIN, QUANTITATIVE, URINE Routine 08/21/2019 4:42 PM EDT Chronic kidney disease, unspecified CKD stage HC MICROALBUMIN, URINE Routine 08/21/2019 4:42 PM EDT Chronic kidney disease, unspecified CKD stage URINALYSIS WITH REFLEX CULTURE STAT 08/21/2019 4:42 PM EDT Chronic kidney disease, unspecified CKD stage URINE CULTURE STAT 08/21/2019 4:42 PM EDT HC PARATHYROID HORMONE(PTH INTACT Routine 08/21/2019 4:28 PM EDT Chronic kidney disease, unspecified CKD stage HEMOGRAM Routine 08/21/2019 4:28 PM EDT Chronic kidney disease, unspecified CKD stage DIFFERENTIAL, AUTOMATED Routine 08/21/2019 4:28 PM EDT Chronic kidney disease, unspecified CKD stage HC VITAMIN D TOTAL-25 HYDROXY Routine 08/21/2019 4:28 PM EDT Vitamin D insufficiency HC VENIPUNCTURE Routine 08/21/2019 4:28 PM EDT Chronic kidney disease, unspecified CKD stage BASIC METABOLIC PANEL Routine 08/21/2019 4:28 PM EDT Chronic kidney disease, unspecified CKD stage documented in this encounter Results * (ABNORMAL) Basic Metabolic Panel (non-fasting) (04/07/2020 1:55 PM EDT) Glucose 135 65 - 199 mg/dL [facility] Comment:Diabetes: >=200 mg/d L plus symptoms Blood Urea Nitrogen 16 8 - 18 mg/dL [facility] Creatinine 1.13 0.70 - 1.20 mg/dL [facility] Sodium 142 135 - 145 [...] questions. Chloride 104 98 - 107 mmol/L [facility] Carbon Dioxide 24 22 - 31 mmol/L [facility] Anion Gap 14 5 - 15 mmol/L [facility] Calcium 8.2(L) 8.5 - 10.5 mg/dL [facility] Est Glomerular Filtration Rate 53(L) >=60 mL/min/1. 73 m?? [facility] Comment: The eGFR was calculated using the CKD-EPI equation. As with all creatinine based estimates of kidney function, eGFR values calculated with the CKD-EPI equation are not accurate in patients with acute kidney failure, extremes of body mass or the acutely ill. http://INRFOOD/[facility]nk[facility] eGFR 61 >=60 mL/min/1. 73 m?? [facility] Comment: The eGFR was calculated using the CKD-EPI equation. As with all creatinine based estimates of kidney function, eGFR values calculated with the CKD-EPI equation are not accurate in patients with acute kidney failure, extremes of body mass or the acutely ill. http://[email or web address] Blood specimen (specimen) 04/07/2020 1:55 PM EDT 04/07/2020 2:05 PM EDT Narrative Resulting Agency Comment Spec In Lab Benitez Adames MD CHEMISTRY ORDERABLES [facility] [place] [address] * (ABNORMAL) Urine culture (08/21/2019 4:42 PM EDT) Urine Culture 50,000-99,000 cfu/ml Escherichia coli(A) [facility] Organism Escherichia coli(A) [facility] Urine specimen (specimen) 08/21/2019 4:42 PM EDT 08/21/2019 7:49 PM EDT Narrative Resulting Agency Comment Spec In Lab Organism Antibiotic Method Susceptibility Escherichia coli Amikacin VITEK 2 METHOD Sensitive Escherichia coli Ampicillin + Sulbactam VITEK 2 METHOD Sensitive Escherichia coli Aztreonam VITEK 2 METHOD Sensitive Escherichia coli Cefazolin VITEK 2 METHOD Sensitive Escherichia coli Ceftazidime VITEK 2 METHOD <=1: Sensitive Escherichia coli Ceftriaxone VITEK 2 METHOD Sensitive Escherichia coli Ertapenem VITEK 2 METHOD Sensitive Escherichia coli Gentamicin VITEK 2 METHOD Sensitive Escherichia coli Levofloxacin VITEK 2 METHOD Sensitive Comment: Levofloxacin and Ciprofloxacin may not adequately treat infections in critically ill patients even when isolates test susceptible in the laboratory. Contact Infectious Disease before using in critically ill patients. Escherichia coli Meropenem VITEK 2 METHOD <=0.25: Sensitive Escherichia coli Nitrofurantoin VITEK 2 METHOD Sensitive Escherichia coli Piperacillin/Tazobactam VITEK 2 METHO D <=4: Sensitive Escherichia coli Tetracycline VITEK 2 METHOD Sensitive Escherichia coli Tobramycin VITEK 2 METHOD Sensitive Escherichia coli Trimethoprim/Sulfa VITEK 2 METHOD Sensitive Benitez Adames MD MICROBIOLOGY - [place] ORDERABLES [facility] [place] [address] * (ABNORMAL) Urinalysis Microscopic Exam (08/21/2019 4:42 PM EDT) RBC, Urine 1 0 - 4 /HPF [facility] WBC, Urine 22(H) 0 - 5 /HPF [facility] Bacteria, Urine Few(A) None /HPF [facility] Squamous Epithelial Cells Raw Data, Urine 1 <=4 /HPF [facility] Urine specimen (specimen) 08/21/2019 4:42 PM EDT 08/21/2019 4:42 PM EDT Narrative Resulting Agency Comment Spec In Lab Benitze Adames MD URINE ORDERABLES Performing Organization Address [facility] Co de Phone Number [facility] [place] [address] * Protein/Creatinine Ratio, urine (08/21/2019 4:42 PM EDT) Creatinine, Urine 122 mg/dL [facility] Protein, Urine 10 0 - 12 mg/dL [facility] Protein / Creatinine Ratio, Urine <0.1 ratio [facility] Urine specimen (specimen) 08/21/2019 4:42 PM EDT 08/21/2019 4:42 PM EDT Narrative Resulting Agency Comment Spec In Lab Benitez Adames MD URINE ORDERABLES Performing Organization Address [facility] de Phone Number [facility] [place] [address] * Protein/Creatinine Ratio, urine (08/21/2019 4:42 PM EDT) Creatinine, Urine 124 mg/dL [facility] Protein, Urine 10 0 - 12 mg/dL [facility] Protein / Creatinine Ratio, Urine <0.1 ratio [facility] Urine specimen (specimen) 08/21/2019 4:42 PM EDT 08/21/2019 4:42 PM EDT Narrative Resulting Agency Comment Spec In Lab Benitez Adames MD URINE ORDERABLES Performing Organization Address [facility] Co de Phone Number [facility] [place] [address] * U Albumin/Cre Ratio (08/21/2019 4:42 PM EDT) Albumin / Creatinin Ratio, Urine 10 0 - 29 mcg/mg Cr [facility] Comment: Reference Ranges: <30 mcg/mg: [...] Supplements (2012) 2, 357? 362 Albumin, Urine 12.7 mg/L [facility] Creatinine, Urine 124 mg/dL [facility] Urine specimen (specimen) 08/21/2019 4:42 PM EDT 08/21/2019 4:42 PM EDT Narrative Resulting Agency Comment Spec In Lab Benitez Adames MD URINE ORDERABLES [facility] [place] [address] * (ABNORMAL) Urinalysis with reflex Culture (08/21/2019 4:42 PM EDT) Glucose, Urine Dipstick Negative Negative mg/dL [facility] Protein, Urine Dipstick Negative Negative mg/dL [facility] Bilirubin, Urine Dipstick Negative Negative mg/dL [facility] Comment: Clinical correlation required for positive Urine Bilirubin results as false positive may occur with some drugs and drug related products. If a false positive is suspected a serum total bilirubin should be considered if clinically indicated. Urobilinogen, Urine Dipstick Normal Normal mg/dL [facility] pH, Urn (dipstick) 5.5 5.0 - 8.0 [facility] Blood, Urine Dipstick Negative Negative mg/dL [facility] Ketone, Urine Dipstick Negative Negative mg/dL [facility] Nitrite, Urine Dipstick Negative Negative [facility] Leukocytes, Urine Dipstick Small(A) Negative [facility] Appearance, Urine Dipstick Clear Clear [facility] Specific [place] Urine Automated 1.020 1.002 - 1.030 [facility] Color, Urine Dipstick Yellow Yellow [facility] Reflex to Culture Yes [facility] Urine specimen (specimen) 08/21/2019 4:42 PM EDT 08/21/2019 4:42 PM EDT Narrative Resulting Agency Comment Spec In Lab Benitez Adames MD URINE ORDERABLES [facility] [place] [address] * Differential, Automated (08/21/2019 4:28 PM EDT) Neutrophil % 61.7 % [facility] Neutrophil Absolute 5.58 1.70 - 6.10 x10(3)/[facility] Lymph % 24.9 % [facility] Lymphocytes Abs 2.2 0.9 - 3.2 x10(3)/[facility] Monocyte % 9.4 % [facility] Monocyte Abs 0.8 0.3 - 0.9 x10(3)/[facility] Eos % 3.3 % [facility] Eosinophils Abs 0.3 0.0 - 0.4 x10(3)/[facility] Basophil % 0.4 % [facility] Baso Absolute 0.0 0.0 - 0.1 x10(3)/[facility] Immature Gran % 0.30 % [facility] Comment: Immature granulocytes(IG's)percentage and absolute count will include metamyelocytes, myelocytes, and promyelocytes. Blood smears from CBCs yielding IG's will be scanned manually for concordance. If this scan disagrees with the automated IG or if promyelocytes are noted, a manual differential will be performed. Immature Gran Absolute 0.03 0.00 - 0.04 x10(3)/[facility] Blood specimen (specimen) 08/21/2019 4:28 PM EDT 08/21/2019 4:35 PM EDT Narrative Resulting Agency Comment Spec In Lab Benitez Adames MD HEMATOLOGY ORDERABLE S [facility] [place] [address] * (ABNORMAL) Hemogram (08/21/2019 4:28 PM EDT) White Blood Cell 9.0 4.0 - 9.5 x10(3)/mc L [facility] Red Blood Cell 3.86(L) 4.00 - 5.21 x10(6)/mc L [facility] Hemoglobin 11.4(L) 11.7 - 15.5 gm/dL [facility] Hematocrit 36.6 35.7 - 45.8 % [facility] Mean Cell Volume 94.8(H) 82.6 - 94.4 fL [facility] Mean Cell Hemoglobin 29.5 27.1 - 32.0 pg [facility] Mean Cell Hemoglobin Concentration 31.1(L) 31.7 - 35.0 gm/dL [facility] Platelet 264 145 - 357 x10(3)/mc L [facility] RDW Standard Deviation 49.9(H) 37.0 - 46.0 fL [facility] RDW coefficient of variation 14.3(H) 11.5 - 14.1 % [facility] Mean Platelet Volume 10.3 7.6 - 12.9 fL [facility] NRBC% auto 0.0 % [facility] NRBC Absolute 0.000 0.000 - 0.000 x10(3)/mc L [facility] Blood specimen (specimen) 08/21/2019 4:28 PM EDT 08/21/2019 4:35 PM EDT Narrative Resulting Agency Comment Spec In Lab Benitez Adames MD HEMATOLOGY ORDERABLE S [facility] [place] [address] * (ABNORMAL) PTH (08/21/2019 4:28 PM EDT) Parathyroid Hormone 86(H) 15 - 65 pg/mL [facility] Blood specimen (specimen) 08/21/2019 4:28 PM EDT 08/21/2019 4:35 PM EDT Narrative Resulting Agency Comment Spec In Lab Benitez Adames MD CHEMISTRY ORDERABLES Performing Organization Address [facility] Co de Phone Number [facility] [place] [address] * Vitamin D, 25-Hydroxy (08/21/2019 4:28 PM EDT) Vitamin D Total 25 OH 46 30 - 100 ng/mL [facility] Comment: As of 2019, 25-hydroxyvitamin D testing has moved from the [facility] to the [facility]. No substantial change in measured values is expected. Blood specimen (specimen) 08/21/2019 4:28 PM EDT 08/21/2019 4:35 PM EDT Narrative Resulting Agency Comment Spec In Lab Benitez Adames MD CHEMISTRY ORDERABLES Performing Organization Address [facility]/ZIP Co de Phone Number [facility] [place] [address] * (ABNORMAL) Basic Metabolic Panel (non-fasting) (08/21/2019 4:28 PM EDT) Glucose 111 65 - 199 mg/dL [facility] Comment:Diabetes: >=200 mg/d L plus symptoms Blood Urea Nitrogen 24(H) 8 - 18 mg/dL [facility] Creatinine 1.28(H) 0.70 - 1.20 mg/dL [facility] Sodium 141 135 - 145 mmol/L [facility] Potassium 3.4(L) 3.5 - 5.0 mmol/L [facility] Comment: Please note: ??Patients with WBC >100,000 may have falsely elevated Potassium levels. ??For accurate Potassium quantification in these patients send serum separator tube (gold top) for subsequent determinations. ??Contact the Clinical Chemistry Laboratory if there are any questions. Chloride 99 98 - 107 mmol/L [facility] Carbon Dioxide 26 22 - 31 mmol/L [facility] Anion Gap 16(H) 5 - 15 mmol/L [facility] Calcium 9.2 8.5 - 10.5 mg/dL [facility] Est Glomerular Filtration Rate 46(L) >=60 mL/min/1. 73 m?? [facility] Comment: The eGFR was calculated using the CKD-EPI equation. As with all creatinine based estimates of kidney function, eGFR values calculated with the CKD-EPI equation are not accurate in patients with acute kidney failure, extremes of body mass or the acutely ill. http://INRFOOD/[facility]nkf eGFR 53(L) >=60 mL/min/1. 73 m?? [facility] Comment: The eGFR was calculated using the CKD-EPI equation. As with all creatinine based estimates of kidney function, eGFR values calculated with the CKD-EPI equation are not accurate in patients with acute kidney failure, extremes of body mass or the acutely ill. [email or web address]/DHnkf Blood specimen (specimen) 08/21/2019 4:28 PM EDT 08/21/2019 4:35 PM EDT Narrative Resulting Agency Comment Spec In Lab Benitez Adames MD CHEMISTRY ORDERABLES [facility] [place] [address] documented in this encounter Visit Diagnoses Diagnosis Chronic kidney disease, unspecified CKD stage Vitamin D insufficiency Unspecified vitamin D deficiency documented in this encounter Care Teams Tape Folding Machine Operator Relationship Specialty Start Date End Date Marko Duffy DNP PCP - General Family Medicine 07/10/19 08/22/20 documented as of this encounter
--- OUTSIDE RECORDS SUMMARY | 2024-06-27 18:21 | XMS_ITS | Encounter Summary ---
[place] [address] Care Team Providers Care Manager Pathology Name Role Phone Unavailable Primary Care Provider Unavailabl e Encounter Details Date Type Department Care Team (Late st Contact Info) Description 10/12/2009 12:05 AM EST Ancillary Procedure [place] [id number] Destinee Bhatt APRN [address] [place] [address] Social History Tobacco Use Types Packs/Day Years Used Date Smoking Tobacco: Never Assessed Sex and Gender Information Value Date Recorded Sex Assigned at Not on file Gender Identity Not on file Sexual Orientation Not on file documented as of this encounter Plan of Treatment Not on file documented as of this encounter Procedures Procedure Name Priority Date/Time Associated Diagnosis Comments FILM LIBRARY-STORAGE ONLY US BREAST Routine 10/12/2009 12:05 AM EST documented in this encounter Results * Film Library Storage Only US Breast (10/12/2009 12:05 AM EST) Narrative RAD - 02/27/2022 3:18 PM EDT This exam is auto-finalizing. It's purpose is for storage only. Destinee Bhatt APRN IMG FILM LIBRARY ORD ERABLES [place], [place] documented in this encounter Visit Diagnoses Not on filedocumented in this encounter
--- OUTSIDE RECORDS SUMMARY | 2024-06-27 18:21 | XMS_ITS | Encounter Summary ---
Author Organization [facility] Address [address] [place] [address] Care Team Providers Care Neurology Physician Assistant Name Role Phone Dale Gomez MD Primary Care Provider [phone] Encounter Details Date Type Department Care Team (Late st Contact Info) Description 06/12/2016 Results Only [facility] [phone] Stephany Allen APRN [address] [place], [place] [id number] Social History Tobacco Use Types Packs/Day Years Used Date Smoking Tobacco: Never Assessed Sex and Gender Information Value Date Recorded Sex Assigned at Not on file Gender Identity Not on file Sexual Orientation Not on file documented as of this encounter Plan of Treatment Not on file documented as of this encounter Procedures Procedure Name Priority Date/Time Associated Diagnosis Comments PAP TEST- RESULT ONLY Routine 06/12/2016 0:00 EDT documented in this encounter Results * PAP TEST- RESULT ONLY (06/12/2016 0:00 EDT) Pathology Report: CYTOPATHOLOGY REPORT Reports generated via electronic interface contain original data; however they are lacking the format of the original report. Caution should be taken when reading/interpreti ng unformatted reports. Name: ? LAURA HARRIS ? Accession #: ? [id number] ? : ? 1960 (Age: 56) ??F ?Collect Date: ? 06/12/2016 ? Location: ? [facility] ? Receive Date: ? 06/13/2016 ? Provider: STEPHANY ALLEN APRN Copy to: ? Final Report SPECIMEN ADEQUACY ? Satisfactory for Evaluation - transformation zone component absent GENERAL CATEGORIZATION ? Negative for Intraepithelial Lesion or Malignancy ?? Specimen/Source: ??Pap Test, Cervix/Endocervix, ThinPrep Imaging System with manual evaluation Document reviewed and electronically signed by: ? Austin Almaguer, [place](ASCP) ? Report ??Date: 06/19/2016 13:13 HPV with Pap Test ? Date Ordered: ? 06/19/2016 ? Status: ?? Signed Out ?Date Complete: ? 06/21/2016 ? By: ??System Interface ? Date Reported: ? 06/21/2016 ? Interpretation RESULT: Negative for HPV. No E6 or E7 mRNA is detected from HPV types 16,18,31,33,35, 39,45,51,52,56,58, 59,66, and 68 by zipper setter chainstitch mediated amplification. Comments Document reviewed and electronically signed by: ? System Interface ? Report date: 06/21/2016 By the signature above, the attending physician certifies that he/she has personally conducted a gross and/or microscopic examination of the described specimens and rendered or confirmed the above diagnosis. End of Report [facility] 06/12/2016 06/13/2016 Stephany Allen APRN PATHOLOGY ORDERABLES [facility] [address] [place] [address] documented in this encounter Visit Diagnoses Not on filedocumented in this encounter Care Teams Neurology Physician Assistant Relationship Specialty Start Date End Date Dale Gomez MD [address] [place] [id number] PCP - General 12/06/09 09/20/22 documented as of this encounter
--- OUTSIDE RECORDS SUMMARY | 2024-06-27 18:21 | XMS_ITS | Encounter Summary ---
Author Organization [facility] Address [address] [place] [address] Care Team Providers Care Supervisor Residential Name Role Phone Dale Gomez MD Primary Care Provider [phone] Encounter Details Date Type Department Care Team (Late st Contact Info) Description 11/28/2011 Results Only [facility] Laboratory Services - [facility] ([facility] [address] [place], [place] [address] James Moody, AMMY [address] [place] [address] Social History Tobacco Use Types [...] Diagnosis Comments PAP TEST- RESULT ONLY Routine 11/28/2011 0:00 EST documented in this encounter Results * PAP TEST- RESULT ONLY (11/28/2011 0:00 EST) Pathology Report: CYTOPATHOLOGY REPORT Reports generated via electronic interface contain original data; however they are lacking the format of the original report. Caution should be taken when reading/interpreti ng unformatted reports. Name: ? LAURA HARRIS ? Accession #: ? [id number] ? : ? 1960 (Age: 51) ??F ?Collect Date: ? 11/28/2011 ? Location: ? [facility] ? Receive Date: ? 11/29/2011 ? Provider: JAMES MOODY POST CLOSING SPECIALIST Copy to: ? Final Report SPECIMEN ADEQUACY ? Satisfactory for Evaluation - assessment of transformation zone component not applicable ( e.g. atrophy, vaginal sample, hysterectomy) GENERAL CATEGORIZATION ? Negative for Intraepithelial Lesion or Malignancy ?? Menstural/Pregnanc y Status: ??Post Menopausal Other: Additional clinical information: Stenotic cervix Specimen/Source: ??Pap Test, Cervix/Endocervix, ThinPrep Imaging System with manual evaluation Document reviewed and electronically signed by: ? RAUL Anderson(ASCP) ? Report ??Date: 12/04/2011 09:35 HPV with Pap Test ? Date Ordered: ? 12/04/2011 ? Status: ?? Signed Out ?Date Complete: ? 12/06/2011 ? By: ??System Interface ? Date Reported: ? 12/06/2011 ? [...] confirmed the above diagnosis. End of Report [facility] 11/28/2011 11/29/2011 James Moody POST CLOSING SPECIALIST PATHOLOGY ORDERABLES [facility] [address] [place] [address] documented in this encounter Visit Diagnoses Not on filedocumented in this encounter Care Teams Supervisor Residential Relationship Specialty Start Date End Date Dale Gomez MD [address] [place] [address] PCP - General 12/06/09 09/20/22 documented as of this encounter
--- OUTSIDE RECORDS SUMMARY | 2024-06-27 18:21 | XMS_ITS | Encounter Summary ---
Author Organization [facility] [place] [address] Care Team Providers Care Botany Professor Name Role Phone Jesse Kusilvak Sandra TABOR Primary Care Provider [phone] Encounter Details Date Type Department Care Team (Late st Contact Info) Description 09/27/2016 Orders [place] [address] Glenn eMndiola Jr., MD [facility] [place] [address] Right knee pain, unspecified chronicity Social History Tobacco Use Types Packs/Day Years [...] documented as of this encounter Results * XR Knee Standing Alignment AP Lat [place] Joseph Right (09/27/2016 4:17 PM EST) Anatomical Region Laterality Modality Right Digital Radiogra phy Impressions 09/27/2016 4:35 PM EST 1. ??Mild lateral deviation of the right-sided weight-bearing axis. 2. ??Moderate osteoarthropathy of bilateral knees. 3. ??LEFT ankle fusion without complications. Narrative 09/27/2016 4:35 PM EST EXAMINATION: XR ANKLE MIN 3 VIEWS LEFT (GENERIC), XR KNEE STANDING ALIGNMENT AP LAT [place] SKYLINE RIGHT CLINICAL HISTORY: LEFT ANKLE FUSION CONTINUED PAIN TECHNIQUE: Separate images of the pelvis, knees and feet were acquired in the AP projection with the patient standing. These images were stitched together to form a composite image of the pelvis and legs allowing for evaluation of lower extremity alignment in the weight bearing position. ? Frontal lateral and oblique views of the LEFT ankle were also obtained. COMPARISON: None FINDINGS: There is mild lateral deviation of the weightbearing axis on the RIGHT. The LEFT weightbearing axis is midline. Screw fixation of the RIGHT lateral tibial plateau is noted. There is moderate osteoarthropathy of bilateral knees characterized by tricompartmental joint space loss, small marginal osteophytes and subchondral sclerotic changes. No significant right-sided knee joint effusion. There has been prior fusion of the LEFT ankle joint. Screws traversing the tibiotalar joint are intact. Procedure Note Cheikh Hussein MD - 09/27/2016 EXAMINATION: XR ANKLE MIN 3 VIEWS LEFT (GENERIC), XR KNEE STANDINGALIGNMENT AP LAT [place] SKYLINE RIGHT CLINICAL HISTORY: LEFT ANKLE FUSION CONTINUED PAIN TECHNIQUE: Separate images of the pelvis, knees and feet were acquired inthe AP projection with the patient standing. These images were stitched togetherto form a composite image of the pelvis and legs allowing for evaluation oflower extremity alignment in the weight bearing position. Frontal lateral and oblique views of the LEFT ankle were also obtained. COMPARISON: None FINDINGS: There is mild lateral deviation of the weightbearing axis on the RIGHT.The LEFT weightbearing axis is midline. Screw fixation of the RIGHT lateraltibial plateau is noted. There is moderate osteoarthropathy of bilateral knees characterized by tricompartmental joint space loss, small marginalosteophytes and subchondral sclerotic changes. No significant right-sided knee joint effusion. There has been prior fusion of the LEFT ankle joint. Screws traversingthe tibiotalar joint are intact. IMPRESSION 1. Mild lateral deviation of the right-sided weight-bearing axis. 2. Moderate osteoarthropathy of bilateral knees. 3. LEFT ankle fusion without complications. Glenn Mendiola Jr., MD IMG DX ORDERABLES documented in this encounter Visit Diagnoses Diagnosis Right knee pain, unspecified chronicity Right knee pain, unspecified chronicity documented in this encounter Care Teams Botany Professor Relationship Specialty Start Date End Date Stephany Molina APRN PCP - General Family Medicine 05/17/16 05/21/19 documented as of this encounter
--- OUTSIDE RECORDS SUMMARY | 2024-06-27 18:21 | XMS_ITS | Encounter Summary ---
Author Organization [facility] Address [address] [place] [address] Care Team Providers Care Suspension Cord Tier Name Role Phone Dale Gomez MD Primary Care Provider [phone] Destinee Bhatt Primary Care Provider [phone] Encounter Details Date Type Department Care Team (Latest Contact Info) Description 06/01/2021 Lab Requisition [facility] Pathology & Laboratory Medicine - [address] [address] Destinee Bhatt FNP [address] [facility] [address] [place] [phone] Encounter for general adult medical examination without abnormal findings; Encounter for screening for malignant neoplasm of cervix; Encounter for gynecological examination (general) (routine) without abnormal findings Social History Tobacco Use Types Packs/Day Years [...] Name Priority Date/Time Associated Diagnosis Comments PAP TEST Today 05/31/2021 12:30 EDT Encounter for general adult medical examination without abnormal findings Encounter for screening for malignant neoplasm of cervix Encounter for gynecological examination (general) (routine) without abnormal findings HPV DNA DETECTION WITH GENOTYPING, PCR Today 05/31/2021 12:30 EDT Encounter for general adult medical examination without abnormal findings Encounter for screening for malignant neoplasm of cervix Encounter for gynecological examination (general) (routine) without abnormal findings documented in this encounter Results * HUMAN PAPILLOMAVIRUS (HPV) DETECTION-HIGH RISK TYPES (05/31/2021 12:30 EDT) HPV other High Risk types, PCR Negative Negative 06/13/2021 12:02 EDT [facility] Comment:No E6 or E7 mRNA is detected from HPV types 16,18,31,33,35,39,45,51,52,56,58,59,66, and 68 by pointer machine operator mediated amplification. Papanicolaou smear specimen (specimen) CERVIX UTERI STRUCTURE / Unknown 05/31/2021 12:30 EDT 06/08/2021 15:18 EDT Destinee Bhatt INJURY PREVENTION COORDINATOR MICROBIOLOGY - [facility] AL ORDERABLES Performing Organization Address City/State/[facility] Co de Phone Number [facility] [address] [place] [address] * PAP TEST (05/31/2021 12:30 EDT) Specimens A. Cervix and/or Endocervix , ThinPrep Imaging System with Manual Evaluation 06/13/2021 12:02 [facility] Specimen Adequacy Satisfactory for Evaluation - transformation zone component present 06/13/2021 12:02 [facility] General Categorization Negative for intraepithelial lesion or malignancy 06/13/2021 12:02 [facility] Attestation . 06/13/2021 12:02 [facility] at 1202 Clinical History See below 06/13/20 12:02 [facility] HPV The result for the Human Papillomavirus (HPV) Detection-High Risk Types is Negative. No E6 or E7 mRNA is detected from HPV types 16,18,31,33,35,39 ,45,51,52,56,58,5 9,66, and 68 by pointer machine operator mediated amplification.Ceci ting was performed on specimen [id number] and was resulted on 06/13/2021 1158 EDT by EDWIGE, LAB INSTRUMENT RESULTS IN 06/13/2021 12:02 EDT [facility] Performing Lab [facility] 06/13/2021 12:02 EDT [facility] Scanned Images 06/13/2021 12:02 EDT [facility] Papanicolaou smear specimen (specimen) CERVIX UTERI STRUCTURE / Unknown 05/31/2021 12:30 EDT 06/01/2021 16:23 EDT Destinee FLORES PATHOLOGY ORDERABLES [facility] [address] [place] [address] documented in this encounter Visit Diagnoses Diagnosis Encounter for general adult medical examination without abnormal findings Unspecified general medical examination Encounter for screening for malignant neoplasm of cervix Screening for malignant neoplasm of the cervix Encounter for gynecological examination (general) (routine) without abnormal findings documented in this encounter Care Teams Suspension Cord Tier Relationship Specialty Start Date End Date Dale Gomez MD [address] [place] [address] PCP - General 12/06/09 09/20/22 Destinee Bhatt FNP [address] [facility] [address] [place] [address] PCP - General 09/21/22 documented as of this encounter
--- OUTSIDE RECORDS SUMMARY | 2024-06-27 18:21 | XMS_ITS | Encounter Summary ---
[place] [address] Care Team Providers Care Scrap Handler Name Role Phone Unavailable Primary Care Provider Unavailabl e Encounter Details Date Type Department Care Team (Late st Contact Info) Description 09/07/2008 Ancillary Procedure [place] [phone] Destinee Bhatt APRN [address] [place] [address] Social History Tobacco Use Types Packs/Day Years [...] Comments FILM LIBRARY STORAGE ONLY MAMMO Routine 09/07/2008 12:00 AM EST documented in this encounter Results * Film Library- Storage Only Mammo (09/07/2008 12:00 AM EST) Narrative RAD - 02/27/2022 3:18 PM EDT This exam is auto-finalizing. It's purpose is for storage only. Destinee Bhatt APRN IMG FILM LIBRARY ORD ERABLES [place], [place] documented in this encounter Visit Diagnoses Not on filedocumented in this encounter
--- OUTSIDE RECORDS SUMMARY | 2024-06-27 18:21 | XMS_ITS | Encounter Summary ---
Author Organization [facility] Address [address] [place] [address] Care Team Providers Care Auto Leasing Manager Name Role Phone Dale Gomez MD Primary Care Provider [phone] Encounter Details Date Type Department Care Team (Late st Contact Info) Description 12/30/2004 Results Only [facility] [address] [place] [address] James Moody, AMMY [address] [place] [address] Social History Tobacco Use Types [...] Priority Date/Time Associated Diagnosis Comments CYTOPATHOLOGY Routine 12/30/2004 0:00 EST documented in this encounter Results * CYTOPATHOLOGY (12/30/2004 0:00 EST) Pathology Report: CYTOPATHOLOGY REPORT Reports generated via electronic interface contain original data; however they are lacking the format of the original report. Caution should be taken when reading/interpreti ng unformatted reports. Name: ? LAURA HARRIS ? Accession #: ? [id number] : ? 1960 (Age: 44) ??F ?Collect Date: ? 12/30/2004 Location: ? [facility] ? Receive Date: ? 01/03/2005 Provider: ?JAMES MOODY RESPIRATORY CARE TECHNICIAN Copy to: ? Specimen/Source: ?ThinPrep Pap Test, Cervix/Endocervix Last Menstrual Period: ? 07/25 Other: ? HPVA - HPV testing requested if ASC-US on the current ThinPrep Pap test. ? SPECIMEN ADEQUACY ? Satisfactory for Evaluation - transformation zone component present GENERAL CATEGORIZATION ? Negative for Intraepithelial Lesion or Malignancy ? Document reviewed and electronically signed by: ? RAUL Anderson(ASCP) ? Report Date: ??01/05/2005 12:24 End of Report [facility] 12/30/2004 01/03/2005 James Moody RESPIRATORY CARE TECHNICIAN PATHOLOGY ORDERABLES [facility] [address] [place] [address] documented in this encounter Visit Diagnoses Not on filedocumented in this encounter Care Teams Auto Leasing Manager Relationship Specialty Start Date End Date Dale Gomez MD [address] [place] [address] PCP - General 12/06/09 09/20/22 documented as of this encounter
--- OUTSIDE RECORDS SUMMARY | 2024-06-27 18:21 | XMS_ITS | Encounter Summary ---
Author Organization [facility] [place] [address] Care Team Providers Care Fur Stretcher Name Role Phone Jesse Dale Sandra TABOR Primary Care Provider [phone] Encounter Details Date Type Department Care Team (Latest Contact Info) Description 07/21/2016 - 07/21/2016 11:59 PM EDT Hospital Encounter [place] [address] Kassy Rubio MD [facility] [place] [address] Pain Discharge Disposition: Home Social History Tobacco Use Types Packs/Day Years Used Date Smoking Tobacco: Never Smokeless Tobacco: Never Sex and Gender Information Value Date Recorded Sex Assigned at Not on file Gender Identity Not on file Sexual Orientation Not on file documented as of this encounter Medications at Time of Discharge Medication Sig Dispensed Refills Start Date End Date acetaminophen (TYLENOL) 500 mg tablet Take 1,000 mg by mouth every 6 hours as needed. ALBUTEROL INHL Inhale 2 puffs into the lungs. As directed/as needed fluticasone-salmeterol (ADVAIR DISKUS) 250-50 mcg/dose diskus inhaler Inhale 1 puff into the lungs 2 times daily. MULTI-VITAMIN ORAL Take 1 tablet by mouth daily. Levalbuterol Tartrate (XOPENEX HFA) 45 mcg/Actuation inhaler 08/03/2010 prochlorperazine (COMPAZINE) 10 mg Tablet every 8 hours as needed. 04/04/2016 celecoxib (CeleBREX) 200 mg capsule Take 1 capsule by mouth daily. 01/23/2014 09/07/2023 clonazePAM (KlonoPIN) 1 mg tablet 0.5 mg. 07/31/2014 09/07/2023 esomeprazole (NexIUM) [address] capsule Take 1 capsule by mouth daily. 01/23/2014 09/07/2023 WELCHOL 625 mg Tablet 07/11/20162018 acetaminophen-codeine (TYLENOL #3) 300-30 mg Tablet 07/10/2016 09/27/2016 NEXIUM 40 mg Capsule, Delayed Release(E.C.) Take 40 mg by mouth daily. 07/01/2016 03/17/2021 lisinopril (PRINIVIL;ZESTRIL) 10 mg Tablet 06/12/2016 08/21/2019 fluticasone (FLONASE) 50 mcg/actuation [place], Suspension 1 spray daily. 08/03/2016 melatonin 3 mg Tablet Take by mouth. 07/24 ferrous sulfate 325 mg (65 mg iron) Tablet Take 325 mg by mouth daily (with breakfast). 09/27/2016 potassium chloride (MICRO-K) 10 mEq Capsule, Sustained Release Take 10 mEq by mouth 2 times daily. 09/27/2016 Mometasone (NASONEX) 50 mcg/Actuation [place] by Nasal route as needed. 09/07/2023 celecoxib (CELEBREX) 200 mg capsule Take 200 mg by mouth daily. 09/27/2016 LACTOBACILLUS RHAMNOSUS GG (PROBIOTIC ORAL) Take 1 capsule by mouth daily. 08/21/2019 Cholecalciferol, Vitamin D3, (VITAMIN D) 1,000 unit Tab Take 1 tablet by mouth daily. 08/21/2019 atenolol (TENORMIN) 50 mg tablet Take 75 mg by mouth nightly. 75 mg = 1&1/2 tablets 08/21/2019 clonAZEpam (KLONOPIN) 0.5 mg tablet Take 0.5 mg by mouth 2 times daily. 08/21/2019 fish oil-omega-3 fatty acids 1,000 mg capsule 08/03/201008/21 levalbuterol (XOPENEX) 1.25 mg/3 mL nebulizer solution 08/03/2010 09/27/2016 documented as of this encounter Plan of Treatment Not on file documented as of this encounter Procedures Procedure Name Priority Date/Time Associated Diagnosis Comments FILM LIBRARY STORAGE ONLY DX SPINE Routine 07/21/2016 12:00 AM EDT Pain documented in this encounter Results * Film Library- Storage Only DX Spine (07/21/2016 12:00 AM EDT) Narrative [facility] - 07/21/2016 4:45 PM EDT This exam is for storage only and is auto-finalizing. Kassy Rubio MD IMG FILM LIBRARY ORD ERABLES [place], [place] documented in this encounter Visit Diagnoses Diagnosis Pain Generalized pain documented in this encounter Care Teams Fur Stretcher Relationship Specialty Start Date End Date Stephany Molina APRN PCP - General Family Medicine 05/17/16 05/21/19 documented as of this encounter
--- OUTSIDE RECORDS SUMMARY | 2024-06-27 18:21 | XMS_ITS | Encounter Summary ---
[place] [address] Care Team Providers Care Microwave Radio Technician Name Role Phone Stephany Molina APRN Primary Care Provider [phone] Encounter Details Date Type Department Care Team (Late st Contact Info) Description 09/13/2016 Telephone [place] [phone] Claudia Tirado RN Social History Tobacco Use Types Packs/Day Years Used Date Smoking Tobacco: Never Smokeless Tobacco: Never Sex and Gender Information Value Date Recorded Sex Assigned at Not on file Gender Identity Not on file Sexual Orientation Not on file documented as of this encounter Miscellaneous Notes * Telephone Encounter - Claudia Tirado RN - 09/13/2016 3:18 PM EST Patient reports she canceled procedure scheduled for 09/15/2016 a few days ago. She will call to reschedule. Claudia Tirado RN documented in this encounter Plan of Treatment Not on file documented as of this encounter Visit Diagnoses Not on filedocumented in this encounter Care Teams Microwave Radio Technician Relationship Specialty Start Date End Date Stephany Molina APRN PCP - General Family Medicine 05/17/16 05/21/19 documented as of this encounter
--- OUTSIDE RECORDS SUMMARY | 2024-06-27 18:21 | XMS_ITS | Encounter Summary ---
Author Organization [facility] [place] [address] Care Team Providers Care Oncology Nurse Navigator Name Role Phone Jesse Stephany Flores APRN Primary Care Provider [phone] Encounter Details Date Type Department Care Team (Latest Contact Info) Description 09/27/2016 3:20 PM EST - 09/27/2016 11:59 PM EST Hospital Encounter XRay at [address] [place] [address] Glenn Mendiola Jr., MD [facility] [place] [address] Chronic pain of left ankle Discharge Disposition: Home Social History Tobacco Use [...] Date End Date atenolol (TENORMIN) 100 mg Tablet Take 100 mg by mouth daily. 09/22/2016 acetaminophen (TYLENOL) 500 mg tablet Take 1,000 [...] 1 capsule by mouth daily. 01/23/2014 09/07/2023 ibuprofen (ADVIL;MOTRIN) 800 mg Tablet 09/19/2016 08/21/2019 tiZANidine (ZANAFLEX) 2 mg Tablet every 8 hours as needed. 09/19/2016 11/25/2019 WELCHOL 625 mg Tablet 07/11/20162018 NEXIUM 40 mg Capsule, Delayed Release(E.C.) Take 40 mg by mouth daily. 07/01/2016 03/17/2021 lisinopril (PRINIVIL;ZESTRIL) 10 mg Tablet 06/12/2016 08/21/2019 melatonin 3 mg Tablet Take by mouth. 07/24 Mometasone (NASONEX) 50 mcg/Actuation [place] by Nasal route as needed. 09/07/2023 LACTOBACILLUS RHAMNOSUS GG (PROBIOTIC ORAL) Take 1 [...] oil-omega-3 fatty acids 1,000 mg capsule 08/03/201008/21 documented as of this encounter Plan of Treatment Not on file documented as of this encounter Procedures Procedure Name Priority Date/Time Associated Diagnosis Comments XR ANKLE MIN 3 VIEWS LEFT Routine 09/27/2016 4:17 PM EST Chronic pain of left ankle documented in this encounter Results * XR Ankle Min 3 views Left (Generic) (09/27/2016 4:17 PM EST) Anatomical Region Laterality Modality Ankle Left Digital Radiogra phy Impressions 09/27/2016 4:35 PM [...] ankle documented in this encounter Care Teams Oncology Nurse Navigator Relationship Specialty Start Date End Date Stephany Molina, AIRPORT ENGINEER PCP - General Family Medicine 05/17/16 05/21/19 documented as of this encounter
--- OUTSIDE RECORDS SUMMARY | 2024-06-27 18:21 | XMS_ITS | Clinical Summary ---
Author Organization [facility] Address [address] [place] [address] Care Team Providers Care Brazer Controlled Atmospheric Furnace Name Role Phone Evangelina Bhatty MARK Primary Care Provider [phone] Social History Tobacco Use Types Packs/Day Years Used Date Smoking Tobacco: Never Assessed Interpersonal Safety Answer Date Record ed Physically Hurt Never 05/23/2020 Verbally Threaten Not on file 05/23/2020 Sex and Gender Information Value Date Recorded Sex Assigned at Not on file Gender Identity Not on file Sexual Orientation Not on file Plan of Treatment Health Maintenance Due Date Last Done Comments Hepatitis C Screen 1960 RSV Immunization ( o r 60+ Years) (1 - 1-dose 60+ series) 2020 COVID-19 Vaccine (2022-24 season) [address] [place] [address] Lena Alexandre Personal/Family Self [address] [place] [address] [address] [place] [address] Lena Alexandre Personal/Family Self 1960 [address] [facility] [address] [place] [address] Alexandre, Lena Personal/Family Self 1960 [address] [facility] [address] [place] [address] Alexandre, Lena Personal/Family Self 1960 [address] [facility] [address] [place] [address] Alexandre, Lena Personal/Family Self 1960 [address] [facility] [address] [place] [address] Alexandre, Lena Personal/Family Self [address] [place] [address] 1 [place] [address] Alexandre, Lena Personal/Family Self [address] [place] [address] 1 [place] [address] Care Teams Brazer Controlled Atmospheric Furnace Relationship Specialty Start Date End Date Destinee Bhatt FNP [address] [facility] [address] [place] [phone] PCP - General 09/21/22
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
--- OUTSIDE RECORDS SUMMARY | 2024-06-27 18:21 | XMS_ITS | Encounter Summary ---
Author Organization Health system Address [address] [place] [address] Care Team Providers Care Line Helper Name Role Phone Dale Gomez MD Primary Care Provider [phone] Encounter Details Date Type Department Care Team (Late st Contact Info) Description 12/22/2009 Results Only [facility] Laboratory Services - [facility] ([facility] [address] [place] [address] [id number] Charanjit Adams MD [address] [place] [address] Social History Tobacco Use Types Packs/Day Years Used Date Smoking Tobacco: Never Assessed Sex and Gender Information Value Date Recorded Sex Assigned at Not on file Gender Identity Not on file Sexual Orientation Not on file documented as of this encounter Plan of Treatment Not on file documented as of this encounter Procedures Procedure Name Priority Date/Time Associated Diagnosis Comments SURGICAL PATHOLOGY Routine 12/22/2009 0:00 EST documented in this encounter Results * SURGICAL PATHOLOGY (12/22/2009 0:00 EST) Pathology Report: SURGICAL PATHOLOGY REPORT ? Reports generated via electronic interface contain original data; ? however they are lacking the format of the original report. ? Caution should be taken when reading/interpreti ng unformatted reports. ? Name: ? HARRIS, LAURA ? Accession #: ? [id number] ? : ? 1960 (Age: 49) ??F ? Collect Date: ? 12/22/2009 ? Location: ? [facility] ? Receive Date: ? 12/23/2009 ? Provider: CHARANJIT ADAMS MD ? Copy to: JAMES MOODY ELECTRICAL APPLIANCE PREPARER ? Final Pathologic Diagnosis: ? Gallbladder, cholecystectomy: ? 1. ?Cholelithiasis. ? 2. ? Attached liver parenchyma with focal steatosis. ? Document reviewed and electronically signed by: ? JN MOUNT MD ? Report ??Date: 12/24/2009 16:46 ? By the signature above, the attending physician certifies that he/she has ? personally conducted a gross and/or microscopic examination of the described ? specimens and rendered or confirmed the above diagnosis. ? Specimen(s) Received: ? GB ? Clinical History: ? Biliary colic ? Gross Description: ? Received in formalin labelled Laura Harris and gallbladder is an ?? 8.5 x 3.5 x 2.2 cm intact gallbladder that has an attached, patent 0.5 cm in ? length and 0.2 cm in diameter cystic duct. ??The margin of the cystic duct is ? inked black. ??The serosa is dark green, smooth, and glistening. ??On the outside, attached to the gallbladder, is a firm, brown fragment of tissue measuring 1.5 x 1.0 x 0.5 cm, probably representing liver. ??Upon opening the gallbladder, there are innumerable choleliths that range from 0.2 cm to 2.0 cm. ??The mucosa is dark green and velvety, with no discrete masses present. ??The wall thickness is 0.2 ?? cm. ??The en face cystic duct margin, two segments of gallbladder, and a segment of the probable liver are submitted in a single cassette. ??/aneesh ? End of Report ? [facility] 12/22/2009 12/23/2009 9:0 2 EST Charanjit Adams MD PATHOLOGY ORDERABLE S [facility] [address] [place] [address] documented in this encounter Visit Diagnoses Not on filedocumented in this encounter Care Teams Line Helper Relationship Specialty Start Date End Date Dale Gomez MD [address] [place] [address] PCP - General 12/06/09 09/20/22 documented as of this encounter
--- OUTSIDE RECORDS SUMMARY | 2024-06-27 18:21 | XMS_ITS | Encounter Summary ---
Author Organization [facility] Address [address] [place] [address] Care Team Providers Care Grout Pump Operator Name Role Phone Dale Gomez MD Primary Care Provider [phone] Encounter Details Date Type Department Care Team (Latest Contact Info) Description 03/13/2019 10:13 EDT - 03/13/2019 23:59 EDT Hospital Encounter [facility] [address] [place] [address] Unknown, Provider, Discharge Disposition: Home or Self Care Social History Tobacco Use Types Packs/Day Years Used Date Smoking Tobacco: Never Assessed Sex and Gender Information Value Date Recorded Sex Assigned at Not on file Gender Identity Not on file Sexual Orientation Not on file documented as of this encounter Discharge Disposition Disposition Code Departure Means Destination Home or Self [facility] documented in this encounter Plan of Treatment Not on file documented as of this encounter Visit Diagnoses Not on filedocumented in this encounter Care Teams Grout Pump Operator Relationship Specialty Start Date End Date Dale oGmez MD [address] [place] [address] PCP - General 12/06/09 09/20/22 documented as of this encounter
--- OUTSIDE RECORDS SUMMARY | 2024-06-27 18:21 | XMS_ITS | Encounter Summary ---
Author Organization [facility] Address [address] [place] [address] Care Team Providers Care Bakery Products Checker Name Role Phone Dale Gomez MD Primary Care Provider [phone] Encounter Details Date Type Department Care Team (Late st Contact Info) Description 05/08/2007 Results Only [facility] - Maple conversion [address] [place] [address] Brittanie Judd, LEATHER SHAVER [address] [facility],[address] [phone] Social History Tobacco Use Types Packs/Day Years Used Date Smoking Tobacco: Never Assessed Sex and Gender Information Value Date Recorded Sex Assigned at Not on file Gender Identity Not on file Sexual Orientation Not on file documented as of this encounter Plan of Treatment Not on file documented as of this encounter Procedures Procedure Name Priority Date/Time Associated Diagnosis Comments CYTOPATHOLOGY Routine 05/08/2007 0:00 EDT documented in this encounter Results * CYTOPATHOLOGY (05/08/2007 0:00 EDT) Pathology Report: CYTOPATHOLOGY REPORT Reports generated via electronic interface contain original data; however they are lacking the format of the original report. Caution should be taken when reading/interpreti ng unformatted reports. Name: ? LAURA HARRIS ? Accession #: ? [id number] : ? 1960 (Age: 47) ??F ?Collect Date: ? 05/08/2007 Location: ? [facility] ? Receive Date: ? 05/10/2007 Provider: ?BRITTANIE JUDD LEATHER SHAVER Copy to: ? Specimen/Source: ?ThinPrep Pap Test, Cervix/Endocervix, processed on [employer] ThinPrep Imaging System, with manual evaluation Last Menstrual Period: ? 09/26 Other: ? HPVA - HPV testing requested if ASC-US on the current ThinPrep Pap test. ? SPECIMEN ADEQUACY ? Satisfactory for Evaluation - transformation zone component present GENERAL CATEGORIZATION ? Negative for Intraepithelial Lesion or Malignancy INTERPRETATION ? Shift in barron present suggestive of bacterial vaginosis. ? Document reviewed and electronically signed by: ? RAUL Abdalla(ASCP)(IAC) ? Report Date: ??05/15/2007 11:53 End of Report [facility] 05/08/2007 05/10/2007 Brittanie Judd LEATHER SHAVER PATHOLOGY ORDERABLES Performing Organization Address [facility]/State/ZIP Co de Phone Number [facility] [address] [place] [address] documented in this encounter Visit Diagnoses Not on filedocumented in this encounter Care Teams Bakery Products Checker Relationship Specialty Start Date End Date Dale Gomez MD [address] [place] [address] PCP - General 12/06/09 09/20/22 documented as of this encounter
--- OUTSIDE RECORDS SUMMARY | 2024-06-27 18:21 | XMS_ITS | Encounter Summary ---
Author Organization [facility] Address [address] [place] [address] Care Team Providers Care Robotic Technician Name Role Phone Dale Gomez MD Primary Care Provider [phone] Destinee Bhatt Primary Care Provider [phone] Encounter Details Date Type Department Care Team (Late st Contact Info) Description 11/19/2019 Lab Requisition [facility] Pathology & Laboratory Medicine - Main [address] [address] Unknown, Provider, Social History Tobacco Use Types Packs/Day Years Used Date Smoking Tobacco: Never Assessed Sex and Gender Information Value Date Recorded Sex Assigned at Not on file Gender Identity Not on file Sexual Orientation Not on file documented as of this encounter Plan of Treatment Not on file documented as of this encounter Procedures Procedure Name Priority Date/Time Associated Diagnosis Comments CELIAC DISEASE PANEL Routine 11/19/2019 11:38 EST PTH INTACT Routine 11/19/2019 11:38 EST documented in this encounter Results * (ABNORMAL) PTH INTACT (11/19/2019 11:38 EST) Intact PTH 116(H) 19 - 88 pg/mL 11/20/2019 10:33 EST [facility] Blood VENOUS BLOOD / Unknown 11/19/2019 11:38 EST 11/19/2019 15:20 EST Provider Unknown CHEMISTRY & BLOOD GA S ORDERABLES Performing Organization Address City/[facility] de Phone Number [facility] [address] [place] [address] * CELIAC DISEASE PANEL (11/19/2019 11:38 EST) Tissue Transglutaminase Antibody IGA <1.2 <4.0 U/mL 11/21/2019 12:36 EST [facility] Comment: A negative result may be due to IgA deficiency and does not rule out celiac disease. ? Negative: ??<4.0 U/mL ? Weak Positive: ??4.0 - 10.0 U/mL ? Positive: ??>10.0 U/mL Results were obtained with the [facility] QUANTA Lite R h-tTG IgA DENNYS assay on the Ticket[employer] DSX. IgA 108 85 - 499 mg/dL 11/21/2019 12:36 EST [facility] Celiac Disease Interpretation Negative Serology. Celiac disease unlikely. Approximately 10% of patients with celiac disease are seronegative. Patients who are already adhering to a gluten-free diet may also be seronegative. If celiac disease is highly clinically suspected, referral to gastroenterology for additional evaluation is recommended. 11/21/2019 12:36 EST [facility] Blood VENOUS BLOOD / Unknown 11/19/2019 11:38 EST 11/19/2019 15:20 EST Provider Unknown IMMUNOLOGY AND SEROL ARA ORDERABLES Performing Organization Address [facility] Co de Phone Number [facility] [address] [place] [address] documented in this encounter Visit Diagnoses Not on filedocumented in this encounter Care Teams Robotic Technician Relationship Specialty Start Date End Date Dael Gomez MD [address] [place] [address] PCP - General 12/06/09 09/20/22 Destinee Bhatt FNP [address] [place] [address] [address] [place] [address] PCP - General 09/21/22 documented as of this encounter
--- OUTSIDE RECORDS SUMMARY | 2024-06-27 18:21 | XMS_ITS | Encounter Summary ---
[place] [address] Care Team Providers Care Utility Maintenance Worker Name Role Phone Unavailable Primary Care Provider Unavailabl e Encounter Details Date Type Department Care Team (Late st Contact Info) Description 04/16/2007 Ancillary Procedure [place] [phone] Destinee Bhatt APRN [address] [place] [address] Social History Tobacco Use Types Packs/Day Years [...] Comments FILM LIBRARY STORAGE ONLY MAMMO Routine 04/16/2007 12:00 AM EDT documented in this encounter Results * Film Library- Storage Only Mammo (04/16/2007 12:00 AM EDT) Narrative TROY - 02/27/2022 3:19 PM EDT This exam is auto-finalizing. It's purpose is for storage only. Destinee Bhatt APRN IMG FILM LIBRARY ORD ERABLES [place], [place] documented in this encounter Visit Diagnoses Not on filedocumented in this encounter
--- OUTSIDE RECORDS SUMMARY | 2024-06-27 18:21 | XMS_ITS | Encounter Summary ---
Author Organization [place] [address] Care Team Providers Care Gis Mapping Technician Name Role Phone Mikala [place] APRN Primary Care Provider + Encounter Details Date Type Department Care Team (Late st Contact Info) Description 06/13/2011 1:43 PM EDT - 06/13/2011 11:59 PM EDT Hospital Encounter [place] [address] Social History Tobacco Use Types Packs/Day Years [...] Tartrate (XOPENEX HFA) 45 mcg/Actuation inhaler 08/03/2010 loratadine (CLARITIN) 10 mg tablet Take 10 mg by mouth daily. 07/20/2016 Mometasone (NASONEX) 50 mcg/Actuation Luis Llorens Torres by Nasal route as needed. 09/07/2023 polyethylene glycol (MIRALAX) 17 gram packet Take 17 g by mouth daily. 07/20/2016 celecoxib (CELEBREX) 200 mg capsule Take 200 [...] mg by mouth 2 times daily. 08/21/2019 pantoprazole (PROTONIX) 40 mg tablet Take 40 mg by mouth daily. 07/20/2016 fish oil-omega-3 fatty acids 1,000 mg capsule 08/03/201008/21 levalbuterol (XOPENEX) 1.25 mg/3 mL nebulizer solution 08/03/2010 09/27/2016 documented as of this encounter Plan of Treatment Not on file documented as of this encounter Procedures Procedure Name Priority Date/Time Associated Diagnosis Comments US RETROPERITONEAL COMPLETE Routine 06/13/2011 2:34 PM EDT documented in this encounter Results * US RETROPERITONEAL COMPLETE (06/13/2011 2:34 PM EDT) Anatomical Region Laterality Modality Abdomen Ultrasound 06/13/2011 2:34 PM EDT Narrative 06/13/2011 4:14 PM EDT ?Adult Renal Report ? (Signed Final 06/13/2011 04:13 pm) Patient Info ID: ? [id number] ? : ??60 (51 yrs) Name: ? LAURA Heller ?Visit Date: 06/13/2011 02:31 pm ? HARRIS Procedures URETRO - Retroperitoneal Complete - [id number] ? [id number] Indications Right stone. ??Left cyst vs dilated calyx Right Kidney Size (cm) ?L: ??9.4 Cortical Thickness: ?Normal Cortical Echogenicity: ?? Normal Hydronephrosis: ?No sonographic evidence Left Kidney Size (cm) ?L: ??9.4 Cortical Thickness: ?Normal Cortical Echogenicity: ?? Normal Hydronephrosis: ?No sonographic evidence ------- Lesions ------- # ?Date ?Location ?Description ?L ?AP ? TV (cm) 1 ?06/13/11 ?Mid ? Simple cyst ?0.4 ?0.4 ?0.3 Comment: ?Linear echogenic focus with associated twinkle ? artifact question vascualr calcification versus ? several adjacent small non-obstructing calculi Urinary Bladder Pre-void (cm) ? L: ??3.8 ? AP: ??4.2 ? TV: ??5.2 Vol (ml): ?43.5 Comment: ?Partially distended, normal contour Impression Ultrasound - ??Retroperitoneal Complete - Summary Linear echogenic focus with associated twinkle artifact question vascualr calcification versus several adjacent small non-obstructing calculi Otherwise normal renal and bladder ultrasound. I ??viewed the images and agree with the above interpretation. Thank you for allowing us to participate in the care of LAURA HARRIS. Please do not hesitate to call if you have any questions. ? Aracelis Cobb MD Electronically Signed Final Report ?? 06/13/2011 04:13 pm Procedure Note Aracelis Lindquist MD - 06/13/2011 Adult Renal Report (Signed Final 06/13/2011 04:13 pm) Patient Info ID: [id number] : 60 (51 yrs) Name: LAURA Heller Visit Date: 06/13/2011 02:31 pm [facility] Procedures URETRO - Retroperitoneal Complete - [id number] Indications Right stone. Left cyst vs dilated calyx Right Kidney Size (cm) L: 9.4 Cortical Thickness: Normal Cortical Echogenicity: Normal Hydronephrosis: No sonographic evidence Left Kidney Size (cm) L: 9.4 Cortical Thickness: Normal Cortical Echogenicity: Normal Hydronephrosis: No sonographic evidence ------- Lesions ------- # Date Location Description L AP TV (cm) 1 06/13/11 Mid Simple cyst 0.4 0.4 0.3 Comment: Linear echogenic focus with associated twinkle artifact question vascualr calcification versus several adjacent small non-obstructing calculi Urinary Bladder Pre-void (cm) L: 3.8 AP: 4.2 TV: 5.2 Vol (ml): 43.5 Comment: Partially distended, normal contour Impression Ultrasound - Retroperitoneal Complete - Summary Linear echogenic focus with associated twinkle artifact question vascualr calcification versus several adjacent small non-obstructing calculi Otherwise normal renal and bladder ultrasound. I viewed the images and agree with the above interpretation. Thank you for allowing us to participate in the care of LAURA Pina HARRIS. Please do not hesitate to call if you have any questions. Aracelis Cobb MD Electronically Signed Final Report 06/13/2011 04:13 pm Arnie Woodall Jr., MD IMG US GEN ORDERAB LES documented in this encounter Visit Diagnoses Not on filedocumented in this encounter Care Teams Gis Mapping Technician Relationship Specialty Start Date End Date Mikala [place], SHARONA PCP - General 09/13/10 05/16/16 documented as of this encounter
--- OUTSIDE RECORDS SUMMARY | 2024-06-27 18:21 | XMS_ITS | Encounter Summary ---
Author Organization [facility] [place] [address] Care Team Providers Care Structural Analysis Engineer Name Role Phone Mikala [place] APRN Primary Care Provider + Reason for Visit * Reason Comments Nephrolithiasis Encounter Details Date Type Department Care Team (Late st Contact Info) Description 06/13/2011 3:00 PM EDT [place] [address] CLINIC, Arnie Templeton Jr., MD [facility] [place] [address] [place] [address] Nephrolithiasis (Primary Dx) Discharge Disposition: Home Social History Tobacco Use [...] this encounter Patient Instructions * Patient Instructions* Arnie Woodall Jr., MD - 06/13/2011 3:31 PM EDT Please call if any new urologic problems arise; we will plan to see you on as needed basis documented in this encounter Progress Notes * Arnie Woodall Jr., MD - 06/13/2011 3:27 [...] as of this encounter Visit Diagnoses Diagnosis Nephrolithiasis- Primary Calculus of kidney documented in this encounter Care Teams Structural Analysis Engineer Relationship Specialty Start Date End Date Mikala [place] APRN PCP - General 09/13/10 05/16/16 documented as of this encounter
--- OUTSIDE RECORDS SUMMARY | 2024-06-27 18:21 | XMS_ITS | Encounter Summary ---
Author Organization [facility] Address [address] [place] [address] Care Team Providers Care Heat Treat Supervisor Name Role Phone Dale Gomez MD Primary Care Provider [phone] Encounter Details Date Type Department Care Team (Late st Contact Info) Description 12/29/2003 Results Only [facility] - Maple conversion [address] [place] [address] James Moody, AMMY [address] [place] [address] Social History Tobacco Use Types [...] Priority Date/Time Associated Diagnosis Comments CYTOPATHOLOGY Routine 12/29/2003 0:00 EST documented in this encounter Results * CYTOPATHOLOGY (12/29/2003 0:00 EST) Pathology Report: CYTOPATHOLOGY REPORT Reports generated via electronic interface contain original data; however they are lacking the format of the original report. Caution should be taken when reading/interpreti ng unformatted reports. Name: ? LAURA HARRIS ? Accession #: ? [id number] : ? 1960 (Age: 43) ??F ?Collect Date: ? 12/29/2003 Location: ? [facility] ? Receive Date: ? 12/31/2003 Provider: ?JAMES MOODY MANAGER SERVICING Copy to: ? Specimen/Source: ?ThinPrep Pap Test, Cervix/Endocervix Last Menstrual Period: ? 12/22/03 Other: ? HPVA - HPV testing requested if ASC-US on the current ThinPrep Pap test. ? SPECIMEN ADEQUACY ? Satisfactory for Evaluation - transformation zone component present GENERAL CATEGORIZATION ? Negative for Intraepithelial Lesion or Malignancy ? Document reviewed and electronically signed by: ? RAUL Recinos(ASCP) ? Report Date: ??01/06/2004 08:26 End of Report [facility] 12/29/2003 12/31/2003 James Moody MANAGER SERVICING PATHOLOGY ORDERABLES [facility] [address] [place] [address] documented in this encounter Visit Diagnoses Not on filedocumented in this encounter Care Teams Heat Treat Supervisor Relationship Specialty Start Date End Date Dale Gomez MD [address] [place] [address] PCP - General 12/06/09 09/20/22 documented as of this encounter
--- OUTSIDE RECORDS SUMMARY | 2024-06-27 18:21 | XMS_ITS | Encounter Summary ---
Author Organization [facility] Address [address] [place] [address] Care Team Providers Care Ornamental Rail Installer Name Role Phone Dale Gomez MD Primary Care Provider [phone] Encounter Details Date Type Department Care Team (Late st Contact Info) Description 12/03/2001 Results Only [facility] - Maple conversion [address] [place] [address] Brittanie Judd, AUDIT LEAD [address] [facility],[address] [address] Social History Tobacco Use Types [...] Priority Date/Time Associated Diagnosis Comments CYTOPATHOLOGY Routine 12/03/2001 0:00 EST documented in this encounter Results * CYTOPATHOLOGY (12/03/2001 0:00 EST) Pathology Report: CYTOPATHOLOGY REPORT Reports generated via electronic interface contain original data; however they are lacking the format of the original report. Caution should be taken when reading/interpreti ng unformatted reports. Name: ? LAURA HARRIS ? Accession #: ? [id number] : ? 1960 (Age: 41) ??F ?Collect Date: ? 12/03/2001 Location: ? [facility] ? Receive Date: ? 12/06/2001 Provider: ?BRITTANIE JUDD AUDIT LEAD Copy to: ? Specimen/Source: ?ThinPrep Pap Test, Cervix/Endocervix Last Menstrual Period: ? 11/18/01 Hormonal/Contracep tive Status: ? Depo-Provera ? SPECIMEN ADEQUACY ? Satisfactory for Evaluation - transformation zone component present GENERAL CATEGORIZATION ? Negative for Intraepithelial Lesion or Malignancy ? Document reviewed and electronically signed by: ? RAUL Melgar(ASCP) ? Report Date: ??12/09/2001 12:34 End of Report [facility] 12/03/2001 12/06/2001 Brittanie Judd AUDIT LEAD PATHOLOGY ORDERABLES Performing Organization Address City/State/[facility] Co de Phone Number [facility] [address] [place] [address] documented in this encounter Visit Diagnoses Not on filedocumented in this encounter Care Teams Ornamental Rail Installer Relationship Specialty Start Date End Date Dale Gomez MD [address] [place] [address] PCP - General 12/06/09 09/20/22 documented as of this encounter
--- OUTSIDE RECORDS SUMMARY | 2024-06-27 18:21 | XMS_ITS | Encounter Summary ---
Author Organization [facility] Address [address] [place] [address] Care Team Providers Care Burring Machine Operator Name Role Phone Unavailable Primary Care Provider Unavailabl e Encounter Details Date Type Department Care Team (Late st Contact Info) Description 06/23/2008 Before PRISM Converted Visit (Maple) [facility] - Maple conversion [address] [place] [address] James Moody, EXTERNAL RELATIONS DIRECTOR [address] [place] [address] Social History Tobacco Use Types [...] Priority Date/Time Associated Diagnosis Comments CYTOPATHOLOGY Routine 06/23/2008 0:00 EDT documented in this encounter Results * CYTOPATHOLOGY (06/23/2008 0:00 EDT) Pathology Report: CYTOPATHOLOGY REPORT ? Reports generated via electronic interface contain original data; ? however they are lacking the format of the original report. ? Caution should be taken when reading/interpreti ng unformatted reports. ? Name: ? LAURA HARRIS ? Accession #: ? [id number] ? : ? 1960 (Age: 48) ??F ?Collect Date: ? 06/23/2008 ? Location: ? [facility] ? Receive Date: ? 06/23/2008 ? Provider: ?JAMES MOODY NP ? Copy to: ? Specimen/Source: ?ThinPrep Pap Test, Cervix/Endocervix, processed on [employer] ThinPrep Imaging System, with manual evaluation ? Last Menstrual Period: ? @ 2005 ? Hormonal/Contracep tive Status: ? Yes: Estrace, Prometrium ? Previous Gynecologic Pathology: ? Yes: Abn pap smear @ 1993 - repeat paps wnl ? Other: ? HPVA - HPV testing requested if ASC-US on the current ThinPrep Pap test. ? SPECIMEN ADEQUACY ? Satisfactory for Evaluation ? - transformation zone component present ? GENERAL CATEGORIZATION ? Negative for Intraepithelial Lesion or Malignancy ? INTERPRETATION ? Fungal organisms present morphologically consistent with Linda species. ? Document reviewed and electronically signed by: ? Austin Almaguer, [place](ASCP) ? Report Date: ??06/26/2008 07:55 ? End of Report ? [facility] 06/23/2008 06/23/2008 James Moody EXTERNAL RELATIONS DIRECTOR PATHOLOGY ORDERABLES [facility] [address] [place] [address] documented in this encounter Visit Diagnoses Not on filedocumented in this encounter
--- OUTSIDE RECORDS SUMMARY | 2024-06-27 18:21 | XMS_ITS | Encounter Summary ---
[place] [address] Care Team Providers Care Care Analyst Name Role Phone Unavailable Primary Care Provider Unavailabl e Encounter Details Date Type Department Care Team (Late st Contact Info) Description 10/05/2009 Ancillary Procedure [place] [phone] Destinee Bhatt APRN [address] [place] [address] Social History Tobacco Use Types Packs/Day Years [...] Comments FILM LIBRARY STORAGE ONLY MAMMO Routine 10/05/2009 12:00 AM EST documented in this encounter Results * Film Library- Storage Only Mammo (10/05/2009 12:00 AM EST) Narrative RAD - 02/27/2022 3:18 PM EDT This exam is auto-finalizing. It's purpose is for storage only. Destinee Bhatt APRN IMG FILM LIBRARY ORD ERABLES [place], [place] documented in this encounter Visit Diagnoses Not on filedocumented in this encounter
--- OUTSIDE RECORDS SUMMARY | 2024-06-27 18:21 | XMS_ITS | Encounter Summary ---
Author Organization [facility] [place] [address] Care Team Providers Care Thermostat Maker Name Role Phone Jesse Stephany Flores APRN Primary Care Provider [phone] Encounter Details Date Type Department Care Team (Latest Contact Info) Description 09/27/2016 3:15 PM EST - 09/27/2016 3:19 PM EST Hospital Encounter XRay at [address] [place] [address] Glenn Mendiola Jr., MD [facility] [place] [address] Right knee pain, unspecified chronicity Discharge Disposition: Home Social History Tobacco Use [...] by mouth. 07/24 Mometasone (NASONEX) 50 mcg/Actuation [place] by Nasal route as needed. 09/07/2023 LACTOBACILLUS [...] Name Priority Date/Time Associated Diagnosis Comments XR KNEE STANDING ALIGNMENT AP LAT [place] SKYLINE RIGHT Routine 09/27/2016 4:17 PM EST Right knee pain, unspecified chronicity documented in this encounter Results * XR Knee Standing Alignment AP Lat [place] Right (09/27/2016 4:17 PM EST) Anatomical Region [...] chronicity documented in this encounter Care Teams Thermostat Maker Relationship Specialty Start Date End Date Stephany Molina APRN PCP - General Family Medicine 05/17/16 05/21/19 documented as of this encounter
== END 2024-06-27 18:16 | disposition home or self-care (01) ==
LOC: NCHCN 18:15
PROVIDERS: PCP Nurse Practitioner Family; Visit Provider Nurse Practitioner Family
DX: N39.0 Urinary tract infection, site not specified (principal); B96.29 Other Escherichia coli [E. coli] as the cause of diseases classified elsewhere; R82.89 Other abnormal findings on cytological and histological examination of urine
CPT/HCPCS: 87077; 87086; 87186

== ENCOUNTER 2024-10-01 21:10 | Outpatient (REF) | payer OTHER, SELFPAY ==
--- OUTSIDE RECORDS SUMMARY | 2024-10-01 21:12 | XMS_ITS | Encounter Summary ---
[place] [address] Care Team Providers Care Gas Main And Line Fitter Name Role Phone Marko Duffy DNP Primary Care Provider [phone] Reason for Visit * Reason Comments Skin Check Encounter Details Date Type Department Care Team (Late st Contact Info) Description 06/11/2020 2:15 PM EDT Office Visit Dermatology at [address] [phone] Benitez King MD [address] [facility] [place] [address] Neurodermatitis Social History Tobacco Use Types Packs/Day [...] I do not see it on ED /[facility] website. Patient states that she is disabledat [...] chronicus documented in this encounter Care Teams Gas Main And Line Fitter Relationship Specialty Start Date End Date Mrako Duffy DNP [address] [place] [address] PCP - General Family Medicine 07/10/19 08/22/20 documented as of this encounter
--- OUTSIDE RECORDS SUMMARY | 2024-10-01 21:12 | XMS_ITS | Encounter Summary ---
Author Organization [facility] [place] [address] Care Team Providers Care Green Building Design Specialist Name Role Phone Marko Duffy DNP Primary Care Provider [phone] Encounter Details Date Type Department Care Team (Late st Contact Info) Description 11/21/2019 9:20 PM EST Ancillary Procedure Radiology Library at [facility] [place] [phone] Benitez Adames MD [facility] [place] [address] Social History Tobacco Use Types Packs/Day Years [...] Ultrasound Study (11/21/2019 9:18 PM EST) Narrative [facility] - 11/21/2019 9:18 PM EST This exam is auto-finalizing. It's purpose is for storage only. Benitez Adames MD IMG FILM LIBRARY ORD ERABLES [facility] [place], [place] documented in this encounter Visit Diagnoses Not on filedocumented in this encounter Care Teams Green Building Design Specialist Relationship Specialty Start Date End Date Marko Duffy DNP [address] [place] [address] PCP - General Family Medicine 07/10/19 08/22/20 documented as of this encounter
--- OUTSIDE RECORDS SUMMARY | 2024-10-01 21:12 | XMS_ITS | Clinical Summary ---
Author Organization [facility] [place] [address] Care Team Providers Care Angle Roll Operator Name Role Phone Miller Destinee SHARONA Primary Care Provider [phone] Allergies Active Allergy Reactions Criticality Noted Date [...] 09/22/2016 Active fluticasone propionate (FLONASE) 50 mcg/actuation [place], Suspension SPRAY 1 2 SPRAYS INTO EACH [...] Formulation 06/22/2014,10/2012,08/22/2010 Influenza Vaccine, Whole 08/22/2009 Pneumococcal 23-Valent Polys accharide (Pneumovax 23) 10/22/2006 Pneumococcal Vaccine, Unspec ified Formulation 10/22/1999 Td [...] HIV screen 1978 Hepatitis C Screening 1978 HPV test 1990 PAP Smear 1990 Tetanus/Diphtheria/Pertussis Vaccines (1 - Tdap) 10/23/1992 10/22/1992 Breast Cancer Share Decision Needed 2000 Breast Cancer screening 2000 Pneumococcal Vaccine: At-Ris k 5-64yrs (2 of 2 - PCV) 10/22/2007 10/22/2006, 10/22/1999 Zoster vaccine (1 of 2) 2010 Advance Directive 2015 RSV Vaccine (1 - Risk 60-74 years 1-dose series) 2020 Covid-19 Vaccine (4 - 2023-2 5 season) 2024 01/09/2024, 09/01/2022, 10/03/2021 Influenza (Flu) vaccine (1 o f 1 - Influenza standard series) 06/22/2024 06/22/2014, 08/22/2013, 08/22/2010, Additional history exists Diabetes Screening (HgbA1C o r Glucose) 02/26/2027 02/27/2024, 09/07/2023, 02/20/2023, Additional history exists Procedures Procedure Name Priority Date/Time Associated Diagnosis Comments BASIC METABOLIC PANEL Routine 02/27/2024 2:45 PM EDT Nephrolithiasis Hypertension, unspecified type Stage 3 chronic kidney disease, unspecified whether stage 3a or 3b CKD from Last 3 Months or Most Recently Relevant to Health Maintenance Results * (ABNORMAL) Basic Metabolic Panel (non-fasting) (02/27/2024 2:45 PM EDT) Glucose 91 65 - 199 mg/dL [facility] Comment:Diabetes: >=200 mg/d L plus symptoms Blood Urea Nitrogen 21(H) 8 - 18 mg/dL [facility] Creatinine 1.27(H) 0.70 - 1.20 mg/dL [facility] Sodium 142 135 - 145 mmol/L [facility] Potassium 4.1 3.5 - 5.0 mmol/L [facility] Comment: Please note: ??Patients with WBC >100,000 may have falsely elevated Potassium levels. ??For accurate Potassium quantification in these patients send serum separator tube (gold top) for subsequent determinations. ??Contact the Clinical Chemistry Laboratory if there are any questions. Chloride 107 98 - 107 mmol/L [facility] Carbon Dioxide 24 22 - 31 mmol/L [facility] Anion Gap 11 5 - 15 mmol/L [facility] Calcium 8.6 8.5 - 10.5 mg/dL [facility] Est Glomerular Filtration Rate 48(L) >=60 mL/min/1. 73 m?? [facility] Comment: This patient's estimated GFR [...] In Lab Kriss Florian APRN CHEMISTRY ORDERABLES [facility] [place] [address] from Last 3 Months or Most Recently Relevant to Health Maintenance Care Teams Angle Roll Operator Relationship Specialty Start Date End Date Destinee Bhatt APRN [address] [place], [place] [address] PCP - General Family Medicine 08/23/20
--- OUTSIDE RECORDS SUMMARY | 2024-10-01 21:12 | XMS_ITS | Encounter Summary ---
Author Organization [facility] [place] [address] Care Team Providers Care Research Consultant Name Role Phone Destinee Bhatt APRN Primary Care Provider [phone] Encounter Details Date Type Department Care Team [...] on filedocumented in this encounter Care Teams Research Consultant Relationship Specialty Start Date End Date Destinee Bhatt APRN [address] [place] [address] PCP - General Family Medicine 08/23/20 documented as of this encounter
--- OUTSIDE RECORDS SUMMARY | 2024-10-01 21:12 | XMS_ITS | Encounter Summary ---
[place] [address] Care Team Providers Care Railroad Commissioner Name Role Phone Marko Duffy DNP Primary Care Provider [phone] Encounter Details Date Type Department Care Team (Latest Contact Info) Description 11/25/2019 1:00 PM EST Office Visit Neph[place] [phone] Benitez Adames MD [facility] [place] [address] CKD (chronic kidney disease) stage 3, GFR [...] Take 20 mg by mouth daily. ??? Bjvrqvv-Aincyojcl-Qexc 333-133-5 mg Tablet Take by mouth daily. [...] as needed. ??? Mometasone (NASONEX) 50 mcg/Actuation [place] by Nasal route as needed. ??? acetaminophen [...] Benitez Adames MD, MPH Section of Nephrology #[id number] documented in this encounter Plan of Treatment [...] unspecified documented in this encounter Care Teams Railroad Commissioner Relationship Specialty Start Date End Date Marko Duffy DNP [address] [place] [address] PCP - General Family Medicine 07/10/19 08/22/20 documented as of this encounter
--- OUTSIDE RECORDS SUMMARY | 2024-10-01 21:12 | XMS_ITS | Encounter Summary ---
[facility] [place] [address] Care Team Providers Care Card Punching Machine Operator Name Role Phone MillerDestinee SHARONA Primary Care Provider [phone] Encounter Details Date Type Department Care Team (Latest Contact Info) Description 02/20/2023 2:00 PM EDT Office Visit Neph[place] [phone] Kriss Florian FISH BIN TENDER [facility] [place] [address] Stage 3 chronic kidney disease, unspecified whether [...] from the original note were not included. [facility] NEPHROLOGY/HYPERTENSION CLINIC FOLLOW-UP NOTE [id number] ID: 62 y.o.year-old female for follow up of CKD. Past Medical History: Patient Active Problem List Diagnosis Code ??? Reflux [id number] ??? Nephrolithiasis N20.0 ??? Liver disease K76.9 [...] NEEDED ??? fluticasone propionate (FLONASE) 50 mcg/actuation [place], Suspension SPRAY 1 2 SPRAYS INTO EACH [...] Take 10 mg by mouth daily. ??? Qhhatba-Fvholcagh-Vbat 333-133-5 mg Tablet Take by mouth daily. ??? [DISCONTINUED] atorvastatin (LIPITOR) 20 mg Tablet Take 20 mg by mouth daily. ??? atenolol (TENORMIN) 100 mg Tablet Take 100 mg by mouth daily. ??? prochlorperazine (COMPAZINE) 10 mg Tablet every 8 hours as needed. ??? Mometasone (NASONEX) 50 mcg/Actuation [place] by Nasal route as needed. ??? fluticasone-salmeterol [...] 0.1 x10(3)/mcL Immature Gran % 0.30 % [place] Gran Abs 0.03 0.00 - [...] Negative mcL Appearance UA Clear Clear Spec [place] UA 1.020 1.005 - 1.030 Color UA [...] and coordination of care. Kriss Florian APRN [facility] [address] floor, Insurance Administrative Assistant [address] [place] [address] CC: Destinee Bhatt APRN @[email or web address]@ documented in this encounter Plan of Treatment Not on file documented as of this encounter Results * Protein/Creatinine Ratio, urine (02/20/2023 1:01 PM EDT) Creatinine, Urine 141 mg/dL [facility] Protein, Urine 11 0 - 12 mg/dL [facility] Protein / Creatinine Ratio, Urine <0.1 ratio [facility] Urine 02/20/2023 1:01 PM EDT 02/20/2023 1:13 PM EDT Narrative Resulting Agency Comment Spec In Lab Kriss Laws-Harry FISH BIN TENDER URINE ORD ERABLES [facility] [place] [address] * (ABNORMAL) _Urinalysis with microscopic (02/20/2023 1:01 PM EDT) Glucose, Urine Dipstick Negative Negative mg/dL [facility] Protein, Urine Dipstick Trace(A) Negative mg/dL [facility] Bilirubin, Urine Dipstick Negative Negative mg/dL [facility] Comment: Clinical correlation required for positive Urine Bilirubin results as false positive may occur with some drugs and drug related products. If a false positive is suspected a serum total bilirubin should be considered if clinically indicated. Urobilinogen, Urine Dipstick Normal Normal mg/dL [facility] pH, Urn (dipstick) 5.5 5.0 - 8.0 [facility] Blood, Urine Dipstick Negative Negative mg/dL [facility] Ketone, Urine Dipstick Trace(A) Negative mg/dL [facility] Nitrite, Urine Dipstick Negative Negative [facility] Leukocytes, Urine Dipstick Negative Negative [facility] Appearance, Urine Dipstick Clear Clear [facility] Specific [place] Urine Automated 1.020 1.005 - 1.030 [facility] Color, Urine Dipstick Yellow Yellow [facility] RBC, Urine 1 0 - 4 /HPF [facility] WBC, Urine 1 0 - 5 /HPF [facility] Squamous Epithelial Cells Raw Data, Urine 1 <=4 /HPF [facility] Hyaline Casts, Urine 1 0 - 2 /LPF [facility] Urine 02/20/2023 1:01 PM EDT 02/20/2023 1:13 PM EDT Narrative Resulting Agency Comment Spec In Lab Kriss Keyes Chiqui LOOMISN URINE ORD ERABLES [facility] [place] [address] * Phosphorus (02/20/2023 1:00 PM EDT) Phosphorus 3.5 2.5 - 4.5 mg/dL [facility] Blood 02/20/2023 1:00 PM EDT 02/20/2023 1:11 PM EDT Narrative Resulting Agency Comment Spec In Lab Kriss Keyes Chiqui TABOR CHEMISTRY ORDERABLES Performing Organization Address City/[facility]/ZIP Co de Phone Number [facility] [place] [address] * (ABNORMAL) PTH (02/20/2023 1:00 PM EDT) Parathyroid Hormone 127(H) 15 - 65 pg/mL [facility] Blood 02/20/2023 1:00 PM EDT 02/20/2023 1:11 PM EDT Narrative Resulting Agency Comment Spec In Lab Kriss Keyes Chiqui TABOR CHEMISTRY ORDERABLES Performing Organization Address [facility]/ZIP Co de Phone Number [facility] [place] [address] * Vitamin D, 25-Hydroxy (02/20/2023 1:00 PM EDT) Vitamin D Total 25 OH 33 21 - 100 ng/mL [facility] Vit D Interp Sufficient [facility] Blood 02/20/2023 1:00 PM EDT 02/20/2023 1:11 PM EDT Narrative Resulting Agency Comment Spec In Lab Kriss Keyes Chiqui TABOR CHEMISTRY ORDERABLES Performing Organization Address City/[facility] Co de Phone Number [facility] [place] [address] * (ABNORMAL) Iron and TIBC (02/20/2023 1:00 PM EDT) Iron 53 30 - 150 mcg/dL [facility] TIBC 357 250 - 450 mcg/dL [facility] Iron Saturation 15(L) 20 - 50 % [facility] Blood 02/20/2023 1:00 PM EDT 02/20/2023 1:11 PM EDT Narrative Resulting Agency Comment Spec In Lab Kriss Florian APRN CHEMISTRY ORDERABLES Performing Organization Address City/[facility] Co de Phone Number [facility] [place] [address] * (ABNORMAL) Ferritin (02/20/2023 1:00 PM EDT) Ferritin 12(L) 30 - 400 ng/mL [facility] Comment: Pediatric reference ranges not verified at [facility], interpret with caution. Reference ranges for females greater than 50 years of age approach values for men, i.e., 30-400 ng/mL. Blood 02/20/2023 1:00 PM EDT 02/20/2023 1:11 PM EDT Narrative Resulting Agency Comment Spec In Lab Kriss Florian APRN CHEMISTRY ORDERABLES Performing Organization Address [facility] Co de Phone Number [facility] [place] [address] * (ABNORMAL) Basic Metabolic Panel (non-fasting) (02/20/2023 1:00 PM EDT) [facility] Glucose 95 65 - 199 mg/dL [facility] Comment:Diabetes: >=200 mg/d L plus symptoms Blood Urea Nitrogen 18 8 - 18 mg/dL [facility] Creatinine 1.11 0.70 - 1.20 mg/dL [facility] Sodium 142 135 - 145 mmol/L [facility] Potassium 3.9 3.5 - 5.0 mmol/L [facility] Comment: Please note: ??Patients with WBC >100,000 may have falsely elevated Potassium levels. ??For accurate Potassium quantification in these patients send serum separator tube (gold top) for subsequent determinations. ??Contact the Clinical Chemistry Laboratory if there are any questions. Chloride 105 98 - 107 mmol/L [facility] Carbon Dioxide 25 22 - 31 mmol/L [facility] Anion Gap 12 5 - 15 mmol/L [facility] Calcium 8.5 8.5 - 10.5 mg/dL [facility] Est Glomerular Filtration Rate 56(L) >=60 mL/min/1. 73 m?? [facility] Comment: This patient's estimated GFR [...] Florian APRN CHEMISTRY ORDERABLES Performing Organization Address City/[facility]/ZIP Co de Phone Number [facility] [place] [address] * Albumin Level (02/20/2023 1:00 PM EDT) Albumin 4.4 3.2 - 5.2 g/dL [facility] Blood 02/20/2023 1:00 PM EDT 02/20/2023 1:11 PM EDT Narrative Resulting Agency Comment Spec In Lab Kriss Florian APRN CHEMISTRY ORDERABLES Performing Organization Address City/[facility] Co de Phone Number [facility] [place] [address] documented in this encounter Visit Diagnoses Diagnosis Stage 3 chronic kidney disease, unspecified whether stage 3a or 3b CKD Hypertension, unspecified type documented in this encounter Care Teams Card Punching Machine Operator Relationship Specialty Start Date End Date Destinee Bhatt APRN [address] [place] [address] PCP - General Family Medicine 08/23/20 documented as of this encounter
--- OUTSIDE RECORDS SUMMARY | 2024-10-01 21:12 | XMS_ITS | Encounter Summary ---
Author Organization [facility] [place] [address] Care Team Providers Care Supervisor Cereal Name Role Phone Destinee Bhatt APRN Primary Care Provider [phone] Encounter Details Date Type Department Care Team [...] filedocumented in this encounter Care Teams Supervisor Cereal Relationship Specialty Start Date End Date Destinee Bhatt APRN [address] [place] [address] PCP - General Family Medicine 08/23/20 documented as of this encounter
--- OUTSIDE RECORDS SUMMARY | 2024-10-01 21:12 | XMS_ITS | Encounter Summary ---
Author Organization [facility]ly [facility] [place] [address] Care Team Providers Care Disabilities Services Officer Name Role Phone iMllerDestinee SHARONA Primary Care Provider [phone] Encounter Details Date Type Department Care Team (Latest Contact Info) Description 02/27/2024 4:00 PM EDT Office Visit [place] [phone] Kriss Florian RN CARE TRANSITION [facility] [place] [address] Stage 3a chronic kidney disease (Primary Dx); [...] encounter Progress Notes * Kriss Florian W, RN CARE TRANSITION - 02/27/2024 4:00 PM EDT [facility] NEPHROLOGY/HYPERTENSION CLINIC FOLLOW-UP NOTE [id number] ID: 63 y.o.year-old female seen for follow up of CKD. Past Medical History: Patient Active Problem List Diagnosis Code Reflux [id number] Nephrolithiasis N20.0 Liver disease K76.9 Hypertension I10 [...] (chronic obstructive pulmonary disease) J44.9 Creatinine elevation [id number] Drug eruption L27.0 Fatigue R53.83 Fracture of [...] mouth nightly. fluticasone propionate (FLONASE) 50 mcg/actuation [place], Suspension SPRAY 1 2 SPRAYS INTO EACH [...] Negative mcL Appearance UA Clear Clear Spec [place] UA 1.019 1.005 - 1.030 Color UA [...] and coordination of care. Kriss Florian APRN [facility] 2nd floor, Cellular Equipment Installer [address] [place] [address] CC: Destinee Bhatt APRN [email or web address] documented in this encounter Plan of Treatment Not on file documented as of this encounter Results * Protein/Creatinine Ratio, urine (02/27/2024 4:00 PM EDT) Creatinine, Urine 126 mg/dL [facility] Protein, Urine 8 0 - 12 mg/dL [facility] Protein / Creatinine Ratio, Urine <0.1 ratio [facility] Urine 02/27/2024 4:00 PM EDT 02/27/2024 4:44 PM EDT Narrative Resulting Agency Comment Spec In Lab Kriss Florian APRN URINE ORD ERABLES [facility] [place] [address] * U Albumin/Cre Ratio (02/27/2024 4:00 PM EDT) Albumin / Creatinin Ratio, Urine 2 0 - 29 mcg/mg Cr [facility] Comment: Reference Ranges: <30 mcg/mg: [...] 2, 357? 362 Albumin, Urine 3.1 mg/L [facility] Creatinine, Urine 126 mg/dL [facility] Urine 02/27/2024 4:00 PM EDT 02/27/2024 4:44 PM EDT Narrative Resulting Agency Comment Spec In Lab Kriss Florian RN CARE TRANSITION URINE ORD ERABLES [facility] [place] [address] * _Urinalysis with microscopic (02/27/2024 4:00 PM EDT) Glucose, Urine Dipstick Negative Negative mg/dL [facility] Protein, Urine Dipstick Negative Negative mg/dL [facility] Bilirubin, Urine Dipstick Negative Negative mg/dL [facility] Comment: Clinical correlation required for positive Urine Bilirubin results as false positive may occur with some drugs and drug related products. If a false positive is suspected a serum total bilirubin should be considered if clinically indicated. Urobilinogen, Urine Dipstick Normal Normal mg/dL [facility] pH, Urn (dipstick) 5.0 5.0 - 8.0 [facility] Blood, Urine Dipstick Negative Negative mg/dL [facility] Ketone, Urine Dipstick Negative Negative mg/dL [facility] Nitrite, Urine Dipstick Negative Negative [facility] Leukocytes, Urine Dipstick Negative Negative [facility] Appearance, Urine Dipstick Clear Clear [facility] Specific [place] Urine Automated 1.019 1.005 - 1.030 [facility] Color, Urine Dipstick Yellow Yellow [facility] RBC, Urine 0 0 - 4 /HPF [facility] WBC, Urine 2 0 - 5 /HPF [facility] Squamous Epithelial Cells Raw Data, Urine 4 <=4 /HPF [facility] Hyaline Casts, Urine 2 0 - 2 /LPF [facility] Urine 02/27/2024 4:00 PM EDT 02/27/2024 4:44 PM EDT Narrative Resulting Agency Comment Spec In Lab Kriss Florian APRN URINE ORD ERABLES Performing Organization Address [facility]/ZIP Co de Phone Number [facility] [place] [address] * (ABNORMAL) PTH (02/27/2024 2:45 PM EDT) Parathyroid Hormone 96(H) 15 - 65 pg/mL [facility] Blood 02/27/2024 2:45 PM EDT 02/27/2024 2:51 PM EDT Narrative Resulting Agency Comment Spec In Lab Kriss Florian APRN CHEMISTRY ORDERABLES Performing Organization Address City/[facility]/ZIP Co de Phone Number [facility] [place] [address] * Phosphorus (02/27/2024 2:45 PM EDT) Phosphorus 3.9 2.5 - 4.5 mg/dL [facility] Blood 02/27/2024 2:45 PM EDT 02/27/2024 2:51 PM EDT Narrative Resulting Agency Comment Spec In Lab Kriss Stackaraj SHARONA CHEMISTRY ORDERABLES Performing Organization Address City/[facility]/ZIP Co de Phone Number [facility] [place] [address] * Uric acid (02/27/2024 2:45 PM EDT) Uric Acid 6.3 2.5 - 6.5 mg/dL [facility] Blood 02/27/2024 2:45 PM EDT 02/27/2024 2:51 PM EDT Narrative Resulting Agency Comment Spec In Lab Kriss Stackaraj SHARONA CHEMISTRY ORDERABLES Performing Organization Address [facility] Co de Phone Number [facility] [place] [address] * Vitamin D, 25-Hydroxy (02/27/2024 2:45 PM EDT) Vitamin D Total 25 OH 39 21 - 100 ng/mL [facility] Vit D Interp Sufficient [facility] Blood 02/27/2024 2:45 PM EDT 02/27/2024 2:51 PM EDT Narrative Resulting Agency Comment Spec In Lab Kriss Stacksulema TABOR CHEMISTRY ORDERABLES Performing Organization Address City/[facility]/ZIP Co de Phone Number [facility] [place] [address] * (ABNORMAL) Basic Metabolic Panel (non-fasting) (02/27/2024 2:45 PM EDT) Glucose 91 65 - 199 mg/dL [facility] Comment:Diabetes: >=200 mg/d L plus symptoms Blood Urea Nitrogen 21(H) 8 - 18 mg/dL [facility] Creatinine 1.27(H) 0.70 - 1.20 mg/dL [facility] Sodium 142 135 - 145 mmol/L [facility] Potassium 4.1 3.5 - 5.0 mmol/L [facility] Comment: Please note: ??Patients with WBC >100,000 may have falsely elevated Potassium levels. ??For accurate Potassium quantification in these patients send serum separator tube (gold top) for subsequent determinations. ??Contact the Clinical Chemistry Laboratory if there are any questions. Chloride 107 98 - 107 mmol/L [facility] Carbon Dioxide 24 22 - 31 mmol/L [facility] Anion Gap 11 5 - 15 mmol/L [facility] Calcium 8.6 8.5 - 10.5 mg/dL [facility] Est Glomerular Filtration Rate 48(L) >=60 mL/min/1. 73 m?? [facility] Comment: This patient's estimated GFR [...] Agency Comment Spec In Lab Kriss Florian RN CARE TRANSITION CHEMISTRY ORDERABLES [facility] [place] [address] * Albumin Level (02/27/2024 2:45 PM EDT) Albumin 4.1 3.2 - 5.2 g/dL [facility] Blood 02/27/2024 2:45 PM EDT 02/27/2024 2:51 PM EDT Narrative Resulting Agency Comment Spec In Lab Kriss Florian RN CARE TRANSITION CHEMISTRY ORDERABLES [facility] [place] [address] documented in this encounter Visit Diagnoses Diagnosis Stage 3a chronic kidney disease- Primary Nephrolithiasis Calculus of kidney Hypertension, unspecified type documented in this encounter Care Teams Disabilities Services Officer Relationship Specialty Start Date End Date Destinee Bhatt APRN [address] [place] [address] PCP - General Family Medicine 08/23/20 documented as of this encounter
--- OUTSIDE RECORDS SUMMARY | 2024-10-01 21:12 | XMS_ITS | Encounter Summary ---
[place] [address] Care Team Providers Care Logging Shovel Operator Name Role Phone Destinee Bhatt APRN Primary Care Provider [phone] Encounter Details Date Type Department Care Team (Latest Contact Info) Description 03/17/2021 3:00 PM EDT Office Visit [place] [phone] Benitez Adames MD [facility] [place] [address] Stage 3 chronic kidney disease, unspecified whether [...] needed. ??? fluticasone propionate (FLONASE) 50 mcg/actuation [place], Suspension SPRAY 1 2 SPRAYS INTO EACH [...] Take 20 mg by mouth daily. ??? Fyuplez-Lyiaanwno-Zqrn 333-133-5 mg Tablet Take by mouth daily. ??? atenolol (TENORMIN) 100 mg Tablet Take 100 mg by mouth daily. ??? [DISCONTINUED] NEXIUM 40 mg Capsule, Delayed Release(E.C.) Take 40 mg by mouth daily. ??? Mometasone (NASONEX) 50 mcg/Actuation [place] by Nasal route as needed. ??? acetaminophen [...] Benitez Adames MD, MPH Section of Nephrology #[id number] documented in this encounter Plan of Treatment Not on file documented as of this encounter Visit Diagnoses Diagnosis Stage 3 chronic kidney disease, unspecified whether stage 3a or 3b CKD documented in this encounter Care Teams Logging Shovel Operator Relationship Specialty Start Date End Date Destinee Bhatt APRN [address] [place] [address] PCP - General Family Medicine 08/23/20 documented as of this encounter
--- OUTSIDE RECORDS SUMMARY | 2024-10-01 21:12 | XMS_ITS | Encounter Summary ---
[place] [address] Care Team Providers Care Diamond Powder Mixer Name Role Phone Destinee Bhatt APRN Primary Care Provider [phone] Encounter Details Date Type Department Care Team (Latest Contact Info) Description 03/17/2021 2:00 PM EDT Laboratory Appointment Lab [address] [place] [address] CKD (chronic kidney disease) stage [...] EDT) Glucose 105 65 - 199 mg/dL [facility] Comment:Diabetes: >=200 mg/d L plus symptoms Blood Urea Nitrogen 23(H) 8 - 18 mg/dL [facility] Creatinine 1.23(H) 0.70 - 1.20 mg/dL [facility] Sodium 143 135 - 145 mmol/L [facility] Potassium 4.2 3.5 - 5.0 mmol/L [facility] Comment: Please note: ??Patients with WBC >100,000 may have falsely elevated Potassium levels. ??For accurate Potassium quantification in these patients send serum separator tube (gold top) for subsequent determinations. ??Contact the Clinical Chemistry Laboratory if there are any questions. Chloride 106 98 - 107 mmol/L [facility] Carbon Dioxide 26 22 - 31 mmol/L [facility] Anion Gap 11 5 - 15 mmol/L [facility] Calcium 9.0 8.5 - 10.5 mg/dL [facility] Est Glomerular Filtration Rate 48(L) >=60 mL/min/1. 73 m?? [facility] Comment: This patient? s estimated [...] In Lab Benitez Adames MD CHEMISTRY ORDERABLES [facility] [place] [address] documented in this encounter Visit Diagnoses Diagnosis CKD (chronic kidney disease) stage 3, GFR 30-59 ml/min Chronic kidney disease, Stage III (moderate) documented in this encounter Care Teams Diamond Powder Mixer Relationship Specialty Start Date End Date Destinee Bhatt APRN [address] [place] [address] PCP - General Family Medicine 08/23/20 documented as of this encounter
--- OUTSIDE RECORDS SUMMARY | 2024-10-01 21:12 | XMS_ITS | Encounter Summary ---
[place] [address] Care Team Providers Care Mat Weaver Name Role Phone Miller Destinee SHARONA Primary Care Provider [phone] Encounter Details Date Type Department Care Team (Latest Contact Info) Description 09/07/2023 12:30 PM EST Laboratory Appointment Lab [address] [place] [phone] Stage 3 chronic kidney disease, unspecified whether [...] Albumin/Cre Ratio (09/07/2023 1:24 PM EST) Pathologist [facility] Albumin / Creatinin Ratio, Urine 3 0 - 29 mcg/mg Cr [facility] Comment: Reference Ranges: <30 mcg/mg: Normal [...] 2, 357? 362 Albumin, Urine 5.1 mg/L [facility] Creatinine, Urine 150 mg/dL [facility] Urine 09/07/2023 1:24 PM EST 09/07/2023 1:34 PM EST Narrative Resulting Agency Comment Spec In Lab Kriss Keyes Chiqui RECORDS TECHNICIAN URINE ORD ERABLES [facility] [address] [place] [address] * (ABNORMAL) _Urinalysis with microscopic (09/07/2023 1:24 PM EST) Glucose, Urine Dipstick Negative Negative mg/dL [facility] Protein, Urine Dipstick Negative Negative mg/dL [facility] Bilirubin, Urine Dipstick Negative Negative mg/dL [facility] Comment: Clinical correlation required for positive Urine Bilirubin results as false positive may occur with some drugs and drug related products. If a false positive is suspected a serum total bilirubin should be considered if clinically indicated. Urobilinogen, Urine Dipstick Normal Normal mg/dL [facility] pH, Urn (dipstick) 5.5 5.0 - 8.0 [facility] Blood, Urine Dipstick Negative Negative mg/dL [facility] Ketone, Urine Dipstick Negative Negative mg/dL [facility] Nitrite, Urine Dipstick Negative Negative [facility] Leukocytes, Urine Dipstick Negative Negative [facility] Appearance, Urine Dipstick Clear Clear [facility] Specific [place] Urine Automated 1.020 1.005 - 1.030 [facility] Color, Urine Dipstick Yellow Yellow [facility] RBC, Urine 1 0 - 4 /HPF [facility] WBC, Urine 2 0 - 5 /HPF [facility] Squamous Epithelial Cells Raw Data, Urine 5(H) <=4 /HPF [facility] Hyaline Casts, Urine 3(H) 0 - 2 /LPF [facility] Urine 09/07/2023 1:24 PM EST 09/07/2023 1:34 PM EST Narrative Resulting Agency Comment Spec In Lab Kriss Florian APRN URINE ORD ERABLES Performing Organization Address City/[facility] Co de Phone Number [facility] [place] [address] * (ABNORMAL) Protein/Creatinine Ratio, urine (09/07/2023 1:24 PM EST) Creatinine, Urine 150 mg/dL [facility] Protein, Urine 15(H) 0 - 12 mg/dL [facility] Protein / Creatinine Ratio, Urine <0.1 ratio [facility] Urine 09/07/2023 1:24 PM EST 09/07/2023 1:34 PM EST Narrative Resulting Agency Comment Spec In Lab Kriss Florian APRN URINE ORD ERABLES Performing Organization Address City/[facility] Co de Phone Number [facility] [place] [address] * (ABNORMAL) Differential, Automated (09/07/2023 12:40 PM EST) Neutrophil % 63.7 % [facility] Neutrophil Absolute 5.54 1.70 - 6.10 x10(3)/mc L [facility] Lymph % 22.7 % [facility] Lymphocytes Abs 2.0 0.9 - 3.2 x10(3)/mc L [facility] Monocyte % 7.6 % [facility] Monocyte Abs 0.7 0.3 - 0.9 x10(3)/mc L [facility] Eos % 5.3 % [facility] Eosinophils Abs 0.5(H) 0.0 - 0.4 x10(3)/mc L [facility] Basophil % 0.5 % [facility] Baso Absolute 0.0 0.0 - 0.1 x10(3)/mc L [facility] Immature Gran % 0.20 % [facility] Comment: Immature granulocytes(IG's)percentage and absolute count will include metamyelocytes, myelocytes, and promyelocytes. Blood smears from CBCs yielding IG's will be scanned manually for concordance. If this scan disagrees with the automated IG or if promyelocytes are noted, a manual differential will be performed. Immature Gran Absolute 0.02 0.00 - 0.04 x10(3)/mc L [facility] Blood 09/07/2023 12:4 0 PM EST 09/07/2023 12:58 PM EST Narrative Resulting Agency Comment Spec In Lab Kriss Florian RECORDS TECHNICIAN HEMATOLOG Y ORDERABLES [facility] [place] [address] * Hemogram (09/07/2023 12:40 PM EST) White Blood Cell 8.7 4.0 - 9.5 x10(3)/[facility] Red Blood Cell 4.20 4.00 - 5.21 x10(6)/[facility] Hemoglobin 12.1 11.7 - 15.5 g/dL [facility] Hematocrit 37.9 35.7 - 45.8 % [facility] Mean Cell Volume 90.2 82.6 - 94.4 fL [facility] Mean Cell Hemoglobin 28.8 27.1 - 32.0 pg [facility] Mean Cell Hemoglobin Concentration 31.9 31.7 - 35.0 g/dL [facility] Platelet 223 145 - 357 x10(3)/[facility] RDW Standard Deviation 45.6 37.0 - 46.0 fL [facility] RDW coefficient of variation 13.8 11.5 - 14.1 % [facility] Mean Platelet Volume 11.1 7.6 - 12.9 fL [facility] NRBC% auto 0.0 % [facility] NRBC Absolute 0.000 0.000 - 0.000 x10(3)/[facility] Blood 09/07/2023 12:4 0 PM EST 09/07/2023 12:58 PM EST Narrative Resulting Agency Comment Spec In Lab Kriss Florian RECORDS TECHNICIAN HEMATOLOG Y ORDERABLES Performing Organization Address City/[facility]/ZIP Co de Phone Number [facility] [place] [address] * Albumin Level (09/07/2023 12:40 PM EST) Albumin 4.4 3.2 - 5.2 g/dL [facility] Blood 09/07/2023 12:4 0 PM EST 09/07/2023 12:58 PM EST Narrative Resulting Agency Comment Spec In Lab Kriss Florian RECORDS TECHNICIAN CHEMISTRY ORDERABLES Performing Organization Address [facility] Co de Phone Number [facility] [place] [address] * (ABNORMAL) Basic Metabolic Panel (non-fasting) (09/07/2023 12:40 PM EST) Glucose 113 65 - 199 mg/dL [facility] Comment:Diabetes: >=200 mg/d L plus symptoms Blood Urea Nitrogen 16 8 - 18 mg/dL [facility] Creatinine 1.19 0.70 - 1.20 mg/dL [facility] Sodium 143 135 - 145 mmol/L [facility] Potassium 3.7 3.5 - 5.0 mmol/L [facility] Comment: Please note: ??Patients with WBC >100,000 may have falsely elevated Potassium levels. ??For accurate Potassium quantification in these patients send serum separator tube (gold top) for subsequent determinations. ??Contact the Clinical Chemistry Laboratory if there are any questions. Chloride 107 98 - 107 mmol/L [facility] Carbon Dioxide 25 22 - 31 mmol/L [facility] Anion Gap 11 5 - 15 mmol/L [facility] Calcium 8.7 8.5 - 10.5 mg/dL [facility] Est Glomerular Filtration Rate 51(L) >=60 mL/min/1. 73 m?? [facility] Comment: This patient's estimated GFR was [...] Florian APRN CHEMISTRY ORDERABLES Performing Organization Address City/[facility]/ZIP Co de Phone Number [facility] [place] [address] * Vitamin D, 25-Hydroxy (09/07/2023 12:40 PM EST) Vitamin D Total 25 OH 32 21 - 100 ng/mL [facility] Vit D Interp Sufficient [facility] Blood 09/07/2023 12:4 0 PM EST 09/07/2023 12:58 PM EST Narrative Resulting Agency Comment Spec In Lab Kriss Florian APRN CHEMISTRY ORDERABLES Performing Organization Address City/[facility] Co de Phone Number [facility] [place] [address] * Uric acid (09/07/2023 12:40 PM EST) Uric Acid 6.0 2.5 - 6.5 mg/dL [facility] Blood 09/07/2023 12:4 0 PM EST 09/07/2023 12:58 PM EST Narrative Resulting Agency Comment Spec In Lab Kriss Florian APRN CHEMISTRY ORDERABLES Performing Organization Address City/[facility] Co de Phone Number [facility] [place] [address] * (ABNORMAL) PTH (09/07/2023 12:40 PM EST) Parathyroid Hormone 75(H) 15 - 65 pg/mL [facility] Blood 09/07/2023 12:4 0 PM EST 09/07/2023 12:58 PM EST Narrative Resulting Agency Comment Spec In Lab Kriss Florian APRN CHEMISTRY ORDERABLES Performing Organization Address City/[facility]/ZIP Co de Phone Number [facility] [place] [address] * Phosphorus (09/07/2023 12:40 PM EST) Phosphorus 4.2 2.5 - 4.5 mg/dL [facility] Blood 09/07/2023 12:4 0 PM EST 09/07/2023 12:58 PM EST Narrative Resulting Agency Comment Spec In Lab Kriss Stephy Chiqui RECORDS TECHNICIAN CHEMISTRY ORDERABLES Performing Organization Address City/[facility] Co de Phone Number [facility] [place] [address] documented in this encounter Visit Diagnoses Diagnosis Stage 3 chronic kidney disease, unspecified whether stage 3a or 3b CKD documented in this encounter Care Teams Mat Weaver Relationship Specialty Start Date End Date Destinee Bhatt APRN [address] [place] [address] PCP - General Family Medicine 08/23/20 documented as of this encounter
--- OUTSIDE RECORDS SUMMARY | 2024-10-01 21:12 | XMS_ITS | Encounter Summary ---
Author Organization Formerly [facility] [place] [address] Care Team Providers Care Rehabilitation Therapist Name Role Phone Destinee Bhatt APRN Primary Care Provider [phone] Encounter Details Date Type Department Care Team [...] on filedocumented in this encounter Care Teams Rehabilitation Therapist Relationship Specialty Start Date End Date Destinee Bhatt APRN [address] [place] [address] PCP - General Family Medicine 08/23/20 documented as of this encounter
--- OUTSIDE RECORDS SUMMARY | 2024-10-01 21:12 | XMS_ITS | Encounter Summary ---
[place] [address] Care Team Providers Care Oriental Medicine Practitioner Name Role Phone Miller Destinee SHARONA Primary Care Provider [phone] Encounter Details Date Type Department Care Team (Latest Contact Info) Description 02/20/2023 1:00 PM EDT Laboratory Appointment Lab [address] [place] [id number] Stage 3 chronic kidney disease, unspecified whether [...] EDT) Glucose, Urine Dipstick Negative Negative mg/dL [facility] Protein, Urine Dipstick Trace(A) Negative mg/dL [facility] Bilirubin, Urine Dipstick Negative Negative mg/dL [facility] Comment: Clinical correlation required for positive Urine Bilirubin results as false positive may occur with some drugs and drug related products. If a false positive is suspected a serum total bilirubin should be considered if clinically indicated. Urobilinogen, Urine Dipstick Normal Normal mg/dL [facility] pH, Urn (dipstick) 5.5 5.0 - 8.0 [facility] Blood, Urine Dipstick Negative Negative mg/dL [facility] Ketone, Urine Dipstick Trace(A) Negative mg/dL [facility] Nitrite, Urine Dipstick Negative Negative [facility] Leukocytes, Urine Dipstick Negative Negative mcL [facility] Appearance, Urine Dipstick Clear Clear [facility] Specific [place] Urine Automated 1.020 1.005 - 1.030 [facility] Color, Urine Dipstick Yellow Yellow [facility] RBC, Urine 1 0 - 4 /HPF [facility] WBC, Urine 1 0 - 5 /HPF [facility] Squamous Epithelial Cells Raw Data, Urine 1 <=4 /HPF [facility] Hyaline Casts, Urine 1 0 - 2 /LPF [facility] Urine 02/20/2023 1:01 PM EDT 02/20/2023 1:13 PM EDT Narrative Resulting Agency Comment Spec In Lab Kriss Florian APRN URINE ORD ERABLES Performing Organization Address City/[facility] Co de Phone Number [facility] [place] [address] * Protein/Creatinine Ratio, urine (02/20/2023 1:01 PM EDT) Creatinine, Urine 141 mg/dL [facility] Protein, Urine 11 0 - 12 mg/dL [facility] Protein / Creatinine Ratio, Urine <0.1 ratio [facility] Urine 02/20/2023 1:01 PM EDT 02/20/2023 1:13 PM EDT Narrative Resulting Agency Comment Spec In Lab Kriss Florian APR[place] [address] * (ABNORMAL) Differential, Automated (02/20/2023 1:00 PM EDT) Neutrophil % 65.4 % [facility] Neutrophil Absolute 6.17(H) 1.70 - 6.10 x10(3)/mc L [facility] Lymph % 22.2 % [facility] Lymphocytes Abs 2.1 0.9 - 3.2 x10(3)/ L [facility] Monocyte % 9.7 % [facility] Monocyte Abs 0.9 0.3 - 0.9 x10(3)/[facility] Eos % 2.0 % [facility] Eosinophils Abs 0.2 0.0 - 0.4 x10(3)/[facility] Basophil % 0.4 % [facility] Baso Absolute 0.0 0.0 - 0.1 x10(3)/[facility] Immature Gran % 0.30 % [facility] Comment: Immature granulocytes(IG's)percentage and absolute count will include metamyelocytes, myelocytes, and promyelocytes. Blood smears from CBCs yielding IG's will be scanned manually for concordance. If this scan disagrees with the automated IG or if promyelocytes are noted, a manual differential will be performed. Immature Gran Absolute 0.03 0.00 - 0.04 x10(3)/ L [facility] Blood 02/20/2023 1:00 PM EDT 02/20/2023 1:11 PM EDT Narrative Resulting Agency Comment Spec In Lab Kriss Florian LABOR RELATIONS DIRECTOR HEMATOLOG Y ORDERABLES Performing Organization Address City/State/[facility] Co de Phone Number [facility] [place] [address] * (ABNORMAL) Hemogram (02/20/2023 1:00 PM EDT) White Blood Cell 9.4 4.0 - 9.5 x10(3)/[facility] Red Blood Cell 4.35 4.00 - 5.21 x10(6)/ L [facility] Hemoglobin 12.1 11.7 - 15.5 g/dL [facility] Hematocrit 40.1 35.7 - 45.8 % [facility] Mean Cell Volume 92.2 82.6 - 94.4 fL [facility] Mean Cell Hemoglobin 27.8 27.1 - 32.0 pg [facility] Mean Cell Hemoglobin Concentration 30.2(L) 31.7 - 35.0 g/dL [facility] Platelet 263 145 - 357 x10(3)/mc L [facility] RDW Standard Deviation 47.7(H) 37.0 - 46.0 fL [facility] RDW coefficient of variation 14.0 11.5 - 14.1 % [facility] Mean Platelet Volume 11.2 7.6 - 12.9 fL [facility] NRBC% auto 0.0 % [facility] NRBC Absolute 0.000 0.000 - 0.000 x10(3)/mc L [facility] Blood 02/20/2023 1:00 PM EDT 02/20/2023 1:11 PM EDT Narrative Resulting Agency Comment Spec In Lab Kriss Florian LABOR RELATIONS DIRECTOR HEMATOLOG Y ORDERABLES Performing Organization Address City/State/[facility] Co de Phone Number [facility] [place] [address] * (ABNORMAL) Basic Metabolic Panel (non-fasting) (02/20/2023 1:00 PM EDT) Glucose 95 65 - 199 mg/dL [facility] Comment:Diabetes: >=200 mg/d L plus symptoms Blood Urea Nitrogen 18 8 - 18 mg/dL [facility] Creatinine 1.11 0.70 - 1.20 mg/dL [facility] Sodium 142 135 - 145 mmol/L [facility] Potassium 3.9 3.5 - 5.0 mmol/L [facility] Comment: Please note: ??Patients with WBC >100,000 may have falsely elevated Potassium levels. ??For accurate Potassium quantification in these patients send serum separator tube (gold top) for subsequent determinations. ??Contact the Clinical Chemistry Laboratory if there are any questions. Chloride 105 98 - 107 mmol/L [facility] Carbon Dioxide 25 22 - 31 mmol/L [facility] Anion Gap 12 5 - 15 mmol/L [facility] Calcium 8.5 8.5 - 10.5 mg/dL [facility] Est Glomerular Filtration Rate 56(L) >=60 mL/min/1. 73 m?? [facility] Comment: This patient's estimated GFR [...] Florian APRN CHEMISTRY ORDERABLES Performing Organization Address [facility]/ZIP Co de Phone Number [facility] [place] [address] * (ABNORMAL) Ferritin (02/20/2023 1:00 PM EDT) Ferritin 12(L) 30 - 400 ng/mL [facility] Comment: Pediatric reference ranges not verified at [facility], interpret with caution. Reference ranges for females greater than 50 years of age approach values for men, i.e., 30-400 ng/mL. Blood 02/20/2023 1:00 PM EDT 02/20/2023 1:11 PM EDT Narrative Resulting Agency Comment Spec In Lab Kriss Florian APRN CHEMISTRY ORDERABLES Performing Organization Address City/[facility]/ZIP Co de Phone Number [facility] [place] [address] * (ABNORMAL) Iron and TIBC (02/20/2023 1:00 PM EDT) Iron 53 30 - 150 mcg/dL [facility] TIBC 357 250 - 450 mcg/dL [facility] Iron Saturation 15(L) 20 - 50 % [facility] Blood 02/20/2023 1:00 PM EDT 02/20/2023 1:11 PM EDT Narrative Resulting Agency Comment Spec In Lab Kriss Stephy Chiqui TABOR CHEMISTRY ORDERABLES Performing Organization Address City/[facility]/[place] [address] * Vitamin D, 25-Hydroxy (02/20/2023 1:00 PM EDT) Vitamin D Total 25 OH 33 21 - 100 ng/mL [facility] Vit D Interp Sufficient [facility] Blood 02/20/2023 1:00 PM EDT 02/20/2023 1:11 PM EDT Narrative Resulting Agency Comment Spec In Lab Kriss Stephy Chiqui TABOR CHEMISTRY ORDERABLES Performing Organization Address [facility] Co de Phone Number [facility] [place] [address] * (ABNORMAL) PTH (02/20/2023 1:00 PM EDT) Parathyroid Hormone 127(H) 15 - 65 pg/mL [facility] Blood 02/20/2023 1:00 PM EDT 02/20/2023 1:11 PM EDT Narrative Resulting Agency Comment Spec In Lab Kriss Keyes Chiqui TABOR CHEMISTRY ORDERABLES Performing Organization Address City/[facility]/ZIP Co de Phone Number [facility] [place] [address] * Phosphorus (02/20/2023 1:00 PM EDT) Phosphorus 3.5 2.5 - 4.5 mg/dL [facility] Blood 02/20/2023 1:00 PM EDT 02/20/2023 1:11 PM EDT Narrative Resulting Agency Comment Spec In Lab Krissgaldino Florian APRN CHEMISTRY ORDERABLES [facility] [place] [address] * Albumin Level (02/20/2023 1:00 PM EDT) Albumin 4.4 3.2 - 5.2 g/dL [facility] Blood 02/20/2023 1:00 PM EDT 02/20/2023 1:11 PM EDT Narrative Resulting Agency Comment Spec In Lab Kriss Florian LABOR RELATIONS DIRECTOR CHEMISTRY ORDERABLES [facility] [place] [address] documented in this encounter Visit Diagnoses Diagnosis Stage 3 chronic kidney disease, unspecified whether stage 3a or 3b CKD documented in this encounter Care Teams Oriental Medicine Practitioner Relationship Specialty Start Date End Date Destinee Bhatt APRN [address] [place] [address] PCP - General Family Medicine 08/23/20 documented as of this encounter
--- OUTSIDE RECORDS SUMMARY | 2024-10-01 21:12 | XMS_ITS | Data Portability ---
Author Organization [place] - [facility] [place] [address] Assessment No assessment recorded. Plan of Treatment Reminders Order Date Submit Date Provider Last Modified By Organization Details Last Modified Time Details Appointments Office Visit 2023 01:00P Pina BHATT, Not available Not available Not available Office Visit 2024 11:00A Pina BHATT, Not available Not available Not available Lab vitamin D, 25-hydrox y, total, serum - 1T, 1P 2023 024 [facility] (Registration ), [address] [place] [address] [place], [address], 02/18/2024 15:15:28 CMP, serum or plasma - 1T, 1P 2023 024 [facility] (Registration ), [address] [place] [address] [place], [address], 02/18/2024 15:10:27 magnesium , serum or plasma - 1T, 1P [address] [facility] (Registration ), [address] [place] [address] [place], [address], 02/19/2024 08:37:35 TSH, serum, reflex free T4 - 1T, 1P 2023 024 [email or web address] [facility] (Registration ), [address] [place] [address] [place], [address], 02/19/2024 08:37:26 lipid panel, serum - 1T, 1P [address] [facility] (Registration ), [address] [place] [address] [place], [address], 02/19/2024 08:37:15 CBC - 1T, 1P 2023 024 [facility] (Registration ), [address] [place] [address] [place], [address], 02/18/2024 14:43:28 culture, urine + sensitivi ty 2023 024 [facility] (Registration ), [address] [place] [address] [place], [address], 07/01/2024 08:18:19 urinalysi s, dipstick 2023 024 [email or web address] [facility], [address] [place] [address], [address], 06/27/2024 10:23:54 Referral None recorded. Procedures None recorded. Surgeries None recorded. Imaging DEXA 2023 024 [facility] (Radiology), [address] [place] [address] [place], [address], 04/29/2024 14:43:33 MAMMO, screening , bilateral 2023 024 [facility] (Radiology), [address] [place] [address] [place], [address], 04/29/2024 14:43:41 Medication Orders lisinopri l 40 mg tablet 2023 024 [facility], [address] [place], [address], 01/09/2024 13:39:13 atenolol 100 mg tablet 2023 024 [facility], [address] [place], [address], 01/09/2024 13:39:15 lidocaine HCl 4 % topical cream 2023 024 [facility], [address] [place], [address], 06/27/2024 09:32:09 acetamino phen 500 mg tablet 2023 024 [facility], [address] [place] [address], [address], 03/12/2024 16:11:39 cholestyr amine-asp artame 4 gram oral powder 2023 024 [facility], [address] [place] [address], [address], 10/01/2024 12:53:15 ciproflox acin 250 mg tablet 2023 024 [facility], [address] [place] [address], [address], 10/01/2024 12:52:15 Patient TargetsNo targets recorded. Patient InstructionsNo instructions recorded. Reason for Referral None Reported. Results Created Date Observation Date Name Description Value Unit Range Abnormal Flag Note LastModifiedBy Organization Detail LastModifiedTime 02/18/20 24 02/18/2024 COMPL ETE BLOOD COUNT NO DIFF WBC 7.30 10_3/ uL 4.4-10 .8 normal Not Available [address] [place], [address] 02/18/2024 14:43:28 02/18/20 24 02/18/2024 COMPL ETE BLOOD COUNT NO DIFF RBC 4.24 10_6/ uL 3.93-5 .22 normal Not Available [address] [place], [address] 02/18/2024 14:43:28 02/18/20 24 02/18/2024 COMPL ETE BLOOD COUNT NO DIFF HGB 12.2 g/dL 11.2-1 5.7 normal Not Available [address] [place], [address] 02/18/2024 14:43:28 02/18/20 24 02/18/2024 COMPL ETE BLOOD COUNT NO DIFF HCT 39.0 % 36.0-4 6.0 normal Not Available [address] [place], [address] 02/18/2024 14:43:28 02/18/20 24 02/18/2024 COMPL ETE BLOOD COUNT NO DIFF MCV 92 fL 80-95 normal Not Available Luz Elena [address] [place], [address] 02/18/2024 14:43:28 02/18/20 24 02/18/2024 COMPL ETE BLOOD COUNT NO DIFF MCH 28.8 pg 27.0-3 3.0 normal Not Available [address] [place], [address] 02/18/2024 14:43:28 02/18/20 24 02/18/2024 COMPL ETE BLOOD COUNT NO DIFF MCHC 31.3 % 32.0-3 6.0 low Not Available [address] [place], [address] 02/18/2024 14:43:28 02/18/20 24 02/18/2024 COMPL ETE BLOOD COUNT NO DIFF RDW 13.1 % 11.7-1 4.6 normal Not Available [address] [place], [address] 02/18/2024 14:43:28 02/18/20 24 02/18/2024 COMPL ETE BLOOD COUNT NO DIFF platelet count 208 10_3/ uL 130-40 0 normal Not Available [address] [place], [address] 02/18/2024 14:43:28 02/18/20 24 02/18/2024 COMPL ETE BLOOD COUNT NO DIFF MPV 11.4 fL 8.0-11 .0 high Not Available [address] [place], [address] 02/18/2024 14:43:28 02/18/20 24 02/18/2024 COMPR EHENS GELA METAB OLIC PANEL calcium 8.4 mg/dL 8.5-10 .1 low Not Available [address] [place], [address] 02/18/2024 15:10:27 02/18/20 24 02/18/2024 COMPR EHENS GELA METAB OLIC PANEL glucose 89 mg/dL 74-106 normal Not Available Luz Elena saba [address] [place], [address] 02/18/2024 15:10:27 02/18/20 24 02/18/2024 COMPR EHENS GELA METAB OLIC PANEL BUN 29 mg/dL 7-18 high Not Available Luz Elena saba [address] [place], [address] 02/18/2024 15:10:27 02/18/20 24 02/18/2024 COMPR EHENS GELA METAB OLIC PANEL creatinine 1.1 mg/dL 0.55-1 .02 high Not Available [address] [place], [address] 02/18/2024 15:10:27 02/18/20 24 02/18/2024 COMPR EHENS [...] young er-ag ed adult s. Not Available [address] [place], [address] 02/18/2024 15:10:27 02/18/20 24 02/18/2024 COMPR EHENS GELA METAB OLIC PANEL total protein 6.6 g/dL 6.4-8. 2 normal Not Available [address] [place], [address] 02/18/2024 15:10:27 02/18/20 24 02/18/2024 COMPR EHENS GELA METAB OLIC PANEL albumin 3.8 g/dL 3.4-5. 0 normal Not Available [address] [place], [address] 02/18/2024 15:10:27 02/18/20 24 02/18/2024 COMPR EHENS GELA METAB OLIC PANEL bilirubin, total 0.7 mg/dL 0.2-1. 0 normal Not Available [address] [place], [address] 02/18/2024 15:10:27 02/18/20 24 02/18/2024 COMPR EHENS GELA METAB OLIC PANEL alk phos 112 U/L 46-116 normal Not Available [address] [place], [address] 02/18/2024 15:10:27 02/18/20 24 02/18/2024 COMPR EHENS GELA METAB OLIC PANEL sodium 143 mmol/ L 136-14 5 normal Not Available [address] [place], [address] 02/18/2024 15:10:27 02/18/20 24 02/18/2024 COMPR EHENS GELA METAB OLIC PANEL potassium 4.2 mmol/ L 3.5-5. 1 normal Not Available [address] [place], [address] 02/18/2024 15:10:27 02/18/20 24 02/18/2024 COMPR EHENS GELA METAB OLIC PANEL chloride 105 mmol/ L 98-107 normal Not Available [address] [place], [address] 02/18/2024 15:10:27 02/18/20 24 02/18/2024 COMPR EHENS GELA METAB OLIC PANEL CO2 27.5 mmol/ L 21.0-3 2.0 normal Not Available [address] [place], [address] 02/18/2024 15:10:27 02/18/20 24 02/18/2024 COMPR EHENS GELA METAB OLIC PANEL anion gap 10.5 mmol/ L 3-11 normal Not Available [facility] [address] [place] [address] [place], [address] 02/18/2024 15:10:27 02/18/20 24 02/18/2024 COMPR EHENS GELA METAB OLIC PANEL AST 21 U/L 15-37 normal Not Available Luz Elena [facility] [address] [place] [address] [place], [address] 02/18/2024 15:10:27 02/18/20 24 02/18/2024 COMPR EHENS GELA METAB OLIC PANEL ALT 38 U/L 14-59 normal Not Available Luz Elena [address] [place], [address] 02/18/2024 15:10:27 02/18/20 24 02/18/2024 LIPID 2 cholesterol 179 mg/dL <200 Not Available [address] [place], [address] 02/18/2024 15:10:28 02/18/20 24 02/18/2024 LIPID 2 triglyceride 94 mg/dL <150 Not Available [address] [place], [address] 02/18/2024 15:10:28 02/18/20 24 02/18/2024 LIPID 2 HDL cholesterol 66 mg/dL 40-60 Not Available [facility] [address] [place], [address] 02/18/2024 15:10:28 02/18/20 24 02/18/2024 LIPID 2 [...] 18 years or older . Not Available [address] [place], [address] 02/18/2024 15:10:28 02/18/20 24 02/18/2024 MAGNE SIUM magnesium 1.7 mg/dL 1.8-2. 4 low Not Available [address] [place], [address] 02/18/2024 15:10:28 02/18/20 24 02/18/2024 TSH (W/RE F FT4) TSH (w/ref FT4) 2.43 uIU/m L 0.36-3 .74 normal Not Available [address] [place], [address] 02/18/2024 15:10:29 02/18/20 24 02/18/2024 VITAM IN D 25 TOTAL vitamin D 25 total 33.0 NG/mL 30-100 normal Refer ence Guide lines : Defic ient: <10 ng/ml Insuf ficie nt: 10-30 ng/ml Suffi cient : 30-10 0 ng/ml Toxic : >100 ng/ml Not Available [address] [place], [address] 02/18/2024 15:15:28 06/27/20 24 06/29/2024 URINE CULTU RE urine culture Urine Cultu re ACTIO N SUSCE PTIBI LITY TO FOLLO W APPEA RONAN Gram Negat gela Cruz COLON Y COUNT Not Available [facility] (Registration ) [address] [place] [address] [place], [address], 06/29/2024 09:38:10 06/27/20 24 06/29/2024 URINE CULTU RE urine culture colon ies/m L >100, 000 Day 1 Resul t ISOLA SADE BELOW O:ESC COL (ORGA NISM ID: 1.1) - Esche tony a coli Urine Cultu re (ORGA NISM ID: 1.1) - COLON Y COUNT (ORGA NISM ID: 1.1) - >100, 000 Not Available [facility] (Registration ) [address] [place] [address] [place], [address], 06/29/2024 09:38:10 06/27/20 24 06/30/2024 URINE CULTU RE urine culture Urine Cultu re ACTIO N SUSCE PTIBI LITY TO FOLLO W APPEA RONAN Gram Negat gela Cruz APPEA ROANN Gram Negat gela Cruz APPEA RONAN Mixed Gram Posit gela Nunu COLON Y COUNT Not Available [address] [place], [address] 06/30/2024 07:46:43 06/27/20 24 06/30/2024 URINE CULTU RE urine culture colon ies/m L >100, 000 COLON Y COUNT >100, 000 COLON Y COUNT <10,0 00 Day 1 Resul t ISOLA SADE BELOW Day 2 Resul t ISOLA SADE BELOW O:ESC COL (ORGA NISM ID: 1.1) - Esche tony a coli Urine Cultu re (ORGA NISM ID: 1.1) - COLON Y COUNT (ORGA NISM ID: 1.1) - >100, 000 O:GPF M (ORGA NISM ID: 1.2) - GRAM POSIT GELA NUNU ,MIXE D Urine Cultu re (ORGA NISM ID: 1.2) - COLON Y COUNT (ORGA NISM ID: 1.2) - <10,0 00 ORGAN ISM ID: 1.1 ANTIB IOTIC INTER PRETA TION EDELMIRA STATU S Ampic illin S 4 F Ampic illin /Sulb actam S <=2 F Cefaz johnson S <=4 F Cefta zidim e S <=1 F CEFTR IAXON E S <=1 F Cipro floxa simon S <=0.2 5 F Genta micin S <=1 F Nitro furan toin S <=16 F Imipe nem S <=0.2 5 F Levof loxac in S <=0.1 2 F Tobra mycin S <=1 F Trime thopr im/[place] lfame thoxa zole S <=20 F Piper acill in/Ta zobac morgan S <=4 F Not Available [address] [place], [address] 06/30/2024 07:46:43 06/27/20 24 06/27/2024 urina lysis , dipst ick Leukocytes Modera te Not Available [address], [address], 06/27/2024 09:53:19 06/27/20 24 06/27/2024 urina lysis , dipst ick Nitrite positi ve Not Available [address], [address], 06/27/2024 09:53:19 06/27/20 24 06/27/2024 urina lysis , dipst ick Urobilinogen .2 Not Available [address], [address], 06/27/2024 09:53:19 06/27/20 24 06/27/2024 urina lysis , dipst ick Protein 30 Not Available [address], [address], 06/27/2024 09:53:19 06/27/20 24 06/27/2024 urina lysis , dipst ick pH 5.0 Not Available [address], [address], 06/27/2024 09:53:19 06/27/20 24 06/27/2024 urina lysis , dipst ick Blood Negati ve Not Available [address], [address], 06/27/2024 09:53:19 06/27/20 24 06/27/2024 urina lysis , dipst ick Specific [place] 1.025 Not Available [address], [address], 06/27/2024 09:53:19 09/06/06/27/2024 urina lysis , dipst ick Ketone Negati ve Not Available [address], [address], 06/27/2024 09:53:19 06/27/20 24 06/27/2024 urina lysis , dipst ick Bilirubin Negati ve Not Available [address], [address], 06/27/2024 09:53:19 06/27/20 24 06/27/2024 urina lysis , dipst ick Glucose Negati ve Not Available [address], [address], 06/27/2024 09:53:19 06/27/20 24 06/27/2024 urina lysis , dipst ick Appearance Clear Not Available [address], [address], 06/27/2024 09:53:19 06/27/20 24 06/27/2024 urina lysis , dipst ick Color Dark Yellow Not Available [address], [address], 06/27/2024 09:53:19 03/27/20 24 03/27/2024 MAMMO , scree chad, bilat linda colunga Name: Jessica reneeJanay Heller Unit #: [id number] Loc: DI Orderi ng Provid er: Saida Bhatt Accoun t #: [id number] Status : REG CLI Primar y [...] error, please notify us immedi ately at [phone] and return the origin al report to us at the addres s above. Thank- you. [email or web address] [facility] (Radiology) [address] [place] [address] [place], [address], 04/29/2024 14:43:41 03/27/20 24 03/27/2024 DEXA Patien t Name: Janay Pratt Unit #: [id number] Loc: DI Orderi ng Provid er: Saida Bhatt Accoun t #: [id number] Status : REG CLI Primar y [...] high. Note: Any spine fractu re indica sade 5x risk for subseq uent spine fractu [...] Solano M.D. 1801 Transc ribed By: Russ NEGRO,Fabirce ashby 1801 This is privil eged, confid [...] at the addres s above. Thank- you. [email or web address] [facility] (Radiology) [facility], [place], [address], 04/29/2024 14:43:33 07/07/20 24 01/13/2021 imagi ng/di agnos tic resul t No observ ation record ed. Not Available 07/07 19:40:09 07/07/20 24 10/24/2018 imagi ng/di agnos tic resul t No observ ation record ed. Not Available 07/07 19:40:10 07/07/20 24 11/06/2018 imagi ng/di agnos tic resul t No observ ation record ed. Not Available 07/07 19:40:11 07/07/20 24 01/17/2022 imagi ng/di agnos tic resul t No observ ation record ed. Not Available 07/07 19:40:12 07/07/20 24 11/20/2018 XR, wrist No observ ation record ed. Not Available 07/07 19:40:13 07/07/20 24 12/18/2018 XR, wrist No observ ation record ed. Not Available 07/07 19:40:14 07/07/20 24 01/30/2019 XR, wrist No observ ation record ed. Not Available 07/07 19:40:16 07/07/20 24 07/25/2019 MRI, thora cic spine No observ ation record ed. Not Available 07/07 19:40:17 07/07/20 24 11/24/2019 imagi ng/di agnos tic resul t No observ ation record ed. Not Available 07/07 19:40:18 07/07/20 24 11/21/2019 US, renal No observ ation record ed. Not Available 07/07 19:40:19 07/07/20 24 01/06/2021 MAMMO , scree chad No observ ation record ed. Not Available 07/07 19:40:23 07/07/20 24 11/24/2019 XR, knee No observ ation record ed. Not Available 07/07 19:42:03 07/07/20 24 05/05/2022 XR, knee No observ ation record ed. Not Available 07/07 19:42:04 07/07/20 24 11/13/2019 bone densi ty No observ ation record ed. Not Available 07/07 19:42:05 07/07/20 24 09/12/2019 XR, lumba r spine No observ ation record ed. Not Available 07/07 19:42:11 07/07/20 24 07/28/2019 MRI, lumba r spine No observ ation record ed. Not Available 07/07 19:42:12 07/07/20 24 04/11/2019 MAMMO , scree chad No observ ation record ed. Not Available 07/07 19:42:14 07/07/20 24 01/13/2021 US, breas t No observ ation record ed. Not Available 07/07 19:42:15 07/07/20 24 01/24/2023 MAMMO , scree chad No observ ation record ed. Not Available 07/07 19:42:17 07/07/20 24 07/24/2019 MRI, neck No observ ation record ed. Not Available 07/07 19:42:18 07/07/2009/11/2019 imagi ng/di agnos tic resul t No observ ation record ed. Not Available 07/07 19:43:14 Result Notes None recorded. Problems Name Problem SNOMED Code Status Onset Date Resolution Date Notes Provider Name and Address Organization Details Recorded Time Steatosi s of liver 123904943 Active [address], [place], [address] , [facility] 4 15:31:14 Essentia l hyperten jose ramon 49957720 Active [address], [place], [address] , [facility]. 4 15:28:12 Uncompli cated moderate persiste nt asthma 486909737 Active [address], [place], [address] , [facility] 4 15:31:54 Hyperlip idemia 26743269 Active [address], [facility] [address] , [facility] 4 15:30:35 Anxiety 04145739 Active 2010 Agustínjair De La Torre [facility] 4 19:40:08 Kidney stone 03043929 Completed 200901/17/2010 Problem Code: 592.0; Problem Code Type: ICD-9; Not Available [facility] 3 04:26:14 History of urinary stone 215393783 Active 2007 [facility] 4 19:45:14 Senile osteopor osis 43840033 Active 2004 started 10/[address], [facility] [address] , [facility] 4 15:29:30 Posttrau matic stress disorder 34631649 Active 2013 Agustínjair De La Torre [facility] 4 19:42:25 Headache 19634753 Completed 200403/19/2017 Problem Code: R51; Problem Code Type: ICD-10; Not Available [facility] 3 04:26:15 Pain in thoracic spine 267938482 Active [address], [place], [address] , [facility] 4 12:25:05 Arthralg ia of the ankle and/or foot 152327174 Active 2013 Agustín Britt [facility] 4 19:40:23 Chronic pain 73558583 Active [address], [facility] [address] , [facility] 4 12:05:30 Pain of right knee joint 84144319288 4100 Active [address], [facility] [address] , [facility] 4 15:25:06 Adult health examinat ion Active [address], [facility] [address] , [facility] 4 15:29:58 Pain of right knee joint 45803165742 4100 Completed 201612/16/2017 Problem Code: M25.561; Problem Code Type: ICD-10; [address], [facility] [address] , [facility] 4 15:25:06 Infestat ion by Sarcopte s scabiei radha hominis [id number] Completed 201703/21/2018 Problem Code: B86; Problem Code Type: ICD-10; Not Available [facility] 3 04:26:15 Chronic kidney disease stage 3 365455128 Active [address], [facility] [address] , [facility] 4 12:24:53 Digestiv e system finding 604481206 Active [address], [facility] [address] , [facility] 4 15:30:24 Opioid dependen ce in remissio n 472309430 Active [address], [facility] [address] , [facility] 4 15:30:45 History of stress fracture 95516576041 9101 Active 2018 Agustín isaac, [facility] 4 19:46:12 Hypokale lala 65319839 Active [address], [facility] [address] , [facility] 4 15:31:03 Fatigue 75876833 Active 2019 Agustín isaac, [facility] 4 19:41:01 Pain in lower limb 81951152 Active [address], [facility] [address] , [facility] 4 12:23:20 Hypomagn esemia 168772884 Active [address], [facility] [address] , [facility] 4 15:30:54 Allergic rhinitis 75669881 Active [address], [facility] [address] , [facility] 4 12:17:17 History of polyp of colon 865842210 Completed 202201/03/2024 Problem Code: Z86.010; Problem Code Type: ICD-10; Agustín isaac, [facility] 4 19:43:46 Screenin g mammogra phy Active [address], [facility] [address] , [facility] 4 15:31:38 Upper respirat ory tract infectio n caused by Influenz a virus 50505627817 473728 Completed 202201/08/2023 Problem Code: J11.1; Problem Code Type: ICD-10; Not Available [facility] 3 04:26:17 Benign hyperten jose ramon 72903630 Completed 200607/18/2023 Not Available [facility] 3 04:26:18 Mixed anxiety and depressi ve disorder 420997770 Completed 200402/11/2018 Not Available [facility] 3 04:26:18 Acute upper respirat ory infectio n 59370026 Completed 201710/28/2018 Problem Code: J06.9; Problem Code Type: ICD-10; Not Available [facility] 3 04:26:18 Allergy Completed 201307/18/2023 Problem Code: 995.3; Problem Code Type: ICD-9; Not Available [facility] 3 04:26:18 Joint pain in ankle and foot Completed 201307/18/2023 Problem Code: 719.47; Problem Code Type: ICD-9; Not Available [facility] 3 04:26:18 Localize d eruption of skin 546288348 Completed 201805/31/2021 Problem Code: R21; Problem Code Type: ICD-10; Not Available [facility] 3 04:26:19 Generali zed skin eruption caused by drug and medicame nt 682114177 Completed 201809/09/2020 Problem Code: L27.0; Problem Code Type: ICD-10; Not Available [facility] 3 04:26:19 Periapic al abscess 960735934 Completed 201909/09/2020 Problem Code: K04.7; Problem Code Type: ICD-10; Not Available [facility] 3 04:26:19 Hyperlip idemia screenin g Completed 201503/05/2017 Problem Code: Z13.220; Problem Code Type: ICD-10; Not Available [facility] 3 04:26:19 Dysmenor bryson 559638997 Completed 200402/19/2019 Problem Code: N94.6; Problem Code Type: ICD-10; Not Available [facility] 3 04:26:19 Osteopor osis 68317127 Completed 200407/18/2023 Not Available [facility] 3 04:26:20 Diabetes mellitus screenin g Completed 201503/05/2017 Problem Code: Z13.1; Problem Code Type: ICD-10; Not Available [facility] 3 04:26:20 Biliary calculus 558723056 Completed 200702/19/2019 Not Available [facility] 3 04:26:20 Depressi ve disorder 59405282 Completed 200702/11/2018 Not Available [facility] 3 04:26:20 IgE-medi ated allergic asthma 907264469 Completed Problem Code: 493.00; Problem Code Type: ICD-9; Not Available [facility] 3 04:26:20 Kidney stone 31561720 Completed 200707/18/2023 Problem Code: 592.0; Problem Code Type: ICD-9; Not Available [facility] 3 04:26:21 Screenin g for malignan t neoplasm of colon Completed 201909/09/2020 Problem Code: Z12.11; Problem Code Type: ICD-10; Not Available [facility] 3 04:26:21 Hydronep hrosis 84133327 Completed 200806/01/2022 Problem Code: N13.30; Problem Code Type: ICD-10; Not Available [facility] 3 04:26:21 Backache 978643180 Completed 201307/18/2023 Not Available [facility] 3 04:26:21 Uncompli cated asthma 274381386 Completed 195907/18/2023 Problem Code: J45.909; Problem Code Type: ICD-10; Not Available [facility] 3 04:26:21 Renal function tests outside referenc e range 945722796 Completed 201803/23/2021 Problem Code: R94.4; Problem Code Type: ICD-10; Not Available [facility] 3 04:26:22 Disorder of kidney and/or ureter 692153908 Completed 201807/18/2023 Problem Code: N28.9; Problem Code Type: ICD-10; Not Available [facility] 3 04:26:22 Measurem ent finding 524048902 Completed 201905/31/2021 Problem Code: R78.89; Problem Code Type: ICD-10; Not Available [facility] 3 04:26:22 Superfic ial injury of finger 875034553 Completed 202104/21/2022 Not Available [facility] 3 04:26:23 Breast lump 16571453 Completed 202012/01/2021 Problem Code: N63.0; Problem Code Type: ICD-10; Not Available [facility] 3 04:26:23 Family history of diabetes mellitus 634536978 Completed 201605/31/2021 Problem Code: Z83.3; Problem Code Type: ICD-10; Not Available [facility] 3 04:26:23 Abscess of skin and/or subcutan eous tissue 63575555 Completed 201502/19/2019 Problem Code: L02.91; Problem Code Type: ICD-10; Not Available [facility] 3 04:26:23 Screenin g for malignan t neoplasm of breast Completed 201804/21/2022 Problem Code: Z12.39; Problem Code Type: ICD-10; Not Available [facility] 3 04:26:23 Therapeu tic drug monitori ng assay 80226035 Completed 201409/09/2020 Problem Code: Z51.81; Problem Code Type: ICD-10; Not Available [facility] 3 04:26:24 Adult health examinat ion Completed 201602/19/2019 Problem Code: Z00.00; Problem Code Type: ICD-10; [address], [place], [address] , [facility]. 4 15:29:58 Screenin g for malignan t neoplasm of colon Completed 202004/21/2022 Problem Code: Z12.11; Problem Code Type: ICD-10; Not Available [facility] 3 04:26:25 Menopaus e present 561105930 Completed 201002/19/2019 Not Available [facility] 3 04:26:25 Itching of skin 683080089 Completed 202006/01/2022 Problem Code: L29.9; Problem Code Type: ICD-10; Not Available [facility] 3 04:26:26 Abdomina l pain 57179809 Completed 201805/31/2021 Problem Code: R10.9; Problem Code Type: ICD-10; Not Available [facility] 3 04:26:26 Generali zed anxiety disorder 02737341 Completed 201007/18/2023 Not Available [facility] 3 04:26:26 COVID-19 331807519 Completed 202201/03/[address] [facility], [facility] 4 19:40:40 Low back pain 749187642 Active [address], [facility] [address] , [facility] 4 15:24:49 History of adenomat ous polyp of colon 899365241 Active 2022 tubular adenoma 2022; recall 7yrs Agustín De La [facility], [facility] 4 19:44:46 Arthrode sis of ankle Active [address], [place], [address] , [facility] 4 15:26:51 Subclini wallace hypothyr oidism 87998830 Active [address], [facility] [address] , [facility] 4 15:28:16 Hyperpar athyroid ism 49496008 Active [address], [facility] [address] , [facility] 4 15:28:18 Follicul ar cysts of skin and subcutan eous tissue 408371318 Active 2023 MARK HERNA[address], [place], [address] , [facility] 4 15:29:26 Acute urinary tract infectio n 238980794 Active 2023 Mari Sam RN null, [facility] 4 09:48:43 Diarrhea 84897648 Active 2023 MARK HERNANDEZ [address], [facility] [address] [place] [address] 4 10:04:11 Problem Notes None recorded. Procedures Surgical History None recorded. Imaging Results Imaging Date Name Status LastModified by [facility]iz [facility] Details LastModified Time 03/27/2024 MAMMO, screening, bilateral completed [address] (Radiology) [address] [place] [address] [place] [facility] [place], [address], 04/29/2024 14:43:41 03/27/2024 DEXA completed [address] (Radiology) [address] [place] [address] [place] [facility] [place], [address], 04/29/2024 14:43:33 01/13/2021 imaging/diagno stic result completed Information not available 07/07/2024 19:40:09 10/24/2018 imaging/diagno stic result completed Information not available 07/07/2024 19:40:10 11/06/2018 imaging/diagno stic result completed Information not available 07/07/2024 19:40:11 01/17/2022 imaging/diagno stic result completed Information not available 07/07/2024 19:40:12 11/20/2018 XR, wrist completed Information no t available 07/07/2024 19:40:13 12/18/2018 XR, wrist completed Information no t available 07/07/2024 19:40:14 01/30/2019 XR, wrist completed Information no t available 07/07/2024 19:40:16 07/25/2019 MRI, thoracic spine completed Information not available 07/07/2024 19:40:17 11/24/2019 imaging/diagno stic result completed Information not available 07/07/2024 19:40:18 11/21/2019 US, renal completed Information no t available 07/07/2024 19:40:19 01/06/2021 MAMMO, screening completed Information not available 07/07/2024 19:40:23 11/24/2019 XR, knee completed Information no t available 07/07/2024 19:42:03 05/05/2022 XR, knee completed Information no t available 07/07/2024 19:42:04 11/13/2019 bone density completed Information not available 07/07/2024 19:42:05 09/12/2019 XR, lumbar spine completed Information not available 07/07/2024 19:42:11 07/28/2019 MRI, lumbar spine completed Information not available 07/07/2024 19:42:12 04/11/2019 MAMMO, screening completed Information not available 07/07/2024 19:42:14 01/13/2021 US, breast completed Information no t available 07/07/2024 19:42:15 01/24/2023 MAMMO, screening completed Information not available 07/07/2024 19:42:17 07/24/2019 MRI, neck completed Information no t available 07/07/2024 19:42:18 09/11/2019 imaging/diagno stic result completed Information not available 07/07/2024 19:43:14 Procedure Notes None recorded. Medical Equipment None Reported. Allergies Allergen ID Allergen Name Allergen Category Reaction Reaction Severity Criticality Documentation Date Start Date Code Code System Note Provider Name and Address Organization Details Recorded Time 25410 Substance with sulfonami de structure and antibacte rial mechanism of action (substanc e) medicatio n rash Not available Not available 08/31/20232004 71010 8003 SNOMED Agustín De [facility] 4 19:39:39 Medications Name Sig Start Date [...] day by inhalati on route as needed. 10/01 completed Using during periods of illness/ exacerba tions. Not Available Not Available Not Available Nexium 40 mg capsule,d elayed release Take 1 by mouth daily 2013 active Not Available Not Available Not Avai lable melatonin 3 mg tablet 2 caps at bedtime prn sleep 10/17 completed Not Available Not Available Not Available ciproflox acin 250 mg tablet TAKE ONE TABLET BY MOUTH EVERY 12 HOURS 10/01 completed Not Available Not Available Not Available prochlorp erazine maleate 10 mg tablet Take [...] Not Avai lable Celexa 20 mg tablet 1/4 to 1/2 .qd anxiety 06/21 completed Not Available Not [...] Available fluoromet holone 0.1 % eye drops,reyna pension SHAKE WELL BEFORE USE--INS TILL 1 DROP [...] Available Not Available Nasonex 50 mcg/actua tion [place] 1 spray in each nostril daily 08/10 [...] powder TAKE 17 GRAMS DIRECTED BY PRESCRIB RUST OFFICE FOR COLONOSC OPY BOWEL PREP 12/04 completed Not Available Not Available Not Available Anusol-HC 25 mg rectal supposito ry 1SUPP twice daily 11/03 completed Not Available Not Available Not Available celecoxib 100 mg capsule 01/01 completed Not Available Not Available Not Available lisinopri l 40 mg tablet Take 1 tablet every day by oral route. 2023 active Not Available Not Available Not Avai lable fluticaso ne propionat e 50 mcg/actua tion [...] twice a day 05/[address] King recommen ded 05/2020 Not Available Not Available Not Available levalbute rol HFA 45 mcg/actua tion aerosol inhaler INHALE TWO PUFFS BY MOUTH EVERY 6 HOURS NEEDED FOR COUGH / FOR SHORTNES S OF BREATH / WHEEZE 2023 active Not Available Not Available Not Avai lable Zanaflex 2 mg capsule take 1-2 capsules [...] Not Available Not Available Not Available Advair HFA 115 mcg-21 mcg/actua tion aerosol inhaler INHALE TWO PUFFS BY MOUTH TWICE A DAY active Not Available Not Available No t Available Xopenex HFA 2 P .q 4-6 h , prn cough whee 05/14 completed Not Available Not Available Not Available omega-3 fatty acids-fis h oil 300 mg-1,000 mg capsule take 1 cap by mouth daily 2019 active Not Available Not Available Not Avai lable Cholestyr amine Light 4 gram oral powder TAKE 4G (ONE SCOOP) MIXED IN LIQUID AND DRINK EVERY MORNING 10/01 completed Not Available Not Available Not Available Kapidex 30 mg capsule, delayed release 1 [...] Updated DateTime 4 153.67 cm 32.5 kg/m2 77494.1 1 g 97.4 [degF] 95 % 95 % 69 /min 18 /min 128 mm[Hg] 80 mm[Hg] LUIS LIMON RN [facility] 4 15:02:33 Date Recorded Body height Systolic blood pressure Diastolic blood pressure Provider Name and Address Organization Details Last Updated DateTime 02/18/2024 153.67 cm 134 mm[Hg] 76 mm[Hg] MONET OLIVER CMA [facility] 02/18/2024 09:40:02 Date Recorded Body height Body mass index (BMI) Body weight Body temperature Oxygen saturation Oxygen saturation in Arterial blood by Pulse oximetry Heart rate Systolic blood pressure Diastolic blood pressure Provider Name and Address Organization Details Last Updated DateTime 4 153.67 cm 33.3 kg/m2 45416.2 g 96.9 [degF] 98 % 98 % 62 /min 130 mm[Hg] 84 mm[Hg] Tatianna Taylor RN [facility] 4 12:03:02 Date Recorded Body height Body mass index (BMI) Body weight Body temperature Heart rate Systolic blood pressure Diastolic blood pressure Provider Name and Address Organization Details Last Updated DateTime 4 153.67 cm 32.3 kg/m2 00834.5 2 g 97.8 [degF] 72 /min 122 mm[Hg] 84 mm[Hg] Mari Sam RN [facility] 4 09:34:28 Date Recorded Body height Body temperature Oxygen saturation Oxygen saturation in Arterial blood by Pulse oximetry Heart rate Body mass index (BMI) Body weight Systolic blood pressure Diastolic blood pressure Provider Name and Address Organization Details Last Updated DateTime 4 153.67 cm 97.6 [degF] 97 % 97 % 75 /min 32.1 kg/m2 02919.6 4 g 120 mm[Hg] 76 mm[Hg] Tatianna Taylor RN [facility] 12:55:46 Social History Question Answer Notes LastModified by Organizat ion Details LastModified Time Tobacco Smoking Status Never Smoker LUIS LIMON RN [facility], [facility] 01/08/2024 15:06:25 Would You Say That, In [...] Of Your Most Recent Tobacco Screening? 06/27/2024 [email or web address] Information n ot available 06/27/2024 Has Tobacco Cessation Counseling Been Provided? Yes Information not available 03/12/2024 On What Date Was Tobacco Cessation Counseling Provided? 06/27/2024 [email or web address] Information not available 06/27/2024 Do You Or Have You Ever Used Any Other Forms Of Tobacco Or Nicotine? No [email or web address] Information not available 01/08/2024 Sex: Female Functional Status None recorded. Mental Status None recorded. Family History Relationship Description Onset Age of this Age Resolved Age Notes LastModified by Organization Details LastModified Time Brother Family history of Hypertension [email or web address] Not available 07/2023 03:57:18 Sister Family history of Hypertension [email or web address] Not available 07/2023 03:57:18 Notes:*Problem: Mother: dece ased Sisters: 3 sisters Brothers: 1 brother Children: none Family History of: Hypertension: yes Hyperlipidemia: yes Coronary heart disease: yes Diabetes mellitus: yes Breast cancer: no Colorectal cancer: no Medical History No medical history recorded. Gynecological HistoryNo gynecological history recorded. Obstetrics History GPAL:G 0 P 0 0 0 0 Immunizations Vaccine Type Date Status Note Provider Name and Address Organization Details Recorded Time COVID-19, mRNA, LNP-S, PF, janel-sucrose, 30 mcg/0.3 mL [address], [place], [address], [facility] 01/09/2024 13:37:59 Td (adult), 2 Lf tetanus toxoid, preservative free, adsorbed 018 completed Not Available [facility] 08/31/2023 05:17:27 Tdap 007 completed Not Available [facility] 08/31/2023 05:17:27 Td(adult) unspecified formulation 997 completed Not Available [facility] 08/31/2023 05:17:27 Influenza, split virus, trivalent, preservative 016 completed Not Available [facility] 08/31/2023 05:17:27 Influenza, split virus, trivalent, preservative 015 completed Not Available [facility] 08/31/2023 05:17:27 Influenza, split virus, quadrivalent, PF 020 completed Not Available [facility] 08/31/2023 05:17:27 Influenza, split virus, quadrivalent, PF 019 completed Not Available [facility] 08/31/2023 05:17:27 Influenza, split virus, quadrivalent, PF 021 completed Not Available [facility] 08/31/2023 05:17:27 Influenza, split virus, quadrivalent, preservative 018 completed Not Available [facility] 08/31/2023 05:17:27 Influenza, split virus, quadrivalent, preservative 017 completed Not Available [facility] 08/31/2023 05:17:27 zoster recombinant 019 completed Not Available [facility] 08/31/2023 05:17:28 zoster recombinant 018 completed Not Available [facility] 08/31/2023 05:17:28 Influenza, high-dose, quadrivalent, PF 022 completed Not Available [facility] 08/31/2023 05:17:28 COVID-19, mRNA, LNP-S, PF, 100 mcg/0.5mL dose or 50 mcg/0.25mL dose 021 completed Not Available [facility] 08/31/2023 05:17:28 COVID-19, mRNA, LNP-S, PF, 100 mcg/0.5mL dose or 50 mcg/0.25mL dose 021 completed Not Available [facility] 08/31/2023 05:17:28 COVID-19, mRNA, LNP-S, PF, 100 mcg/0.5mL dose or 50 mcg/0.25mL dose 021 completed Not Available [facility] 08/31/2023 05:17:28 COVID-19, mRNA, LNP-S, bivalent, PF, 30 mcg/0.3 mL dose 022 completed Not Available [facility] 08/31/2023 05:17:28 pneumococcal polysaccharide PPV23 999 completed Not Available [facility] 08/31/2023 05:17:28 pneumococcal polysaccharide PPV23 000 completed Not Available [facility] 08/31/2023 05:17:28 COVID-19, mRNA, LNP-S, PF, janel-sucrose, 30 mcg/0.3 mL 024 completed Tatianna Taylor RN null, [facility] 10/01/2024 13:44:43 Pneumococcal conjugate PCV20, polysaccharide [id number] conjugate, adjuvant, PF cancelled patient objection Tatianna Taylor RN null, [facility] 10/01/2024 14:12:18 Influenza, split virus, trivalent, PF 024 completed DAVID Crowell, [facility] 10/01/2024 13:43:55 Past Encounters Encounter ID Performer Location Encounter Start Date Encounter Closed Date Diagnosis/Indication Diagnosis SNOMED-CT Code Diagnosis ICD10 Code [id number] SAIDA BHATT [address] [address] 12/04/2023 15:39:43 12/04/2023 16:24:22 Posterior rhinorrhea 88558047 R09.82 Low back pain 750871469 M54.50 Senile osteoporosis 1804 0001 M81.0 [id number] SAIDA BHATT [address] [address] 01/08/2024 14:55:05 01/08/2024 15:36:17 Active or passive immunization 470754824 Z23 Essential hypertension 97973937 I10 Cat bite 570586029 W55.0 1XA History of arthrodesis of ankle 0408519418 9105 Z98.1 [id number] MONET OLIVER [address] [address] 02/18/2024 09:27:22 02/18/2024 09:45:51 Adult health examination 958292693 Z00.00 Chronic ki dney disease stage 3 338032088 N18.30 Essential hypertension 57538269 I10 Hyperlipidemia 17342245 E78.5 Hypomagnesemia 963962401 E83.42 Hypothyroidism 93182420 E03.9 Senile osteoporosis 1804 0001 M81.0 [id number] SAIDA BHATT [address] [address] 03/12/2024 11:52:59 03/12/2024 14:09:52 Screening for malignant neoplasm of breast 758405442 Z12.39 Senile osteoporosis 1804 0001 M81.0 History of arthrodesis of ankle 3177311516 9105 Z98.1 Allergic rhinitis 320497 04 J30.9 Chronic pain 82901386 G8 9.29 Hypomagnesemia 233078804 E83.42 Hypokalemia 19373561 E87 .6 Subclinica l hypothyroidism 74515905 E02 Chronic ki dney disease stage 3 650563319 N18.30 Follicular cysts of skin and subcutaneous tissue 825315875 L72.9 Hyperparathyroidism 6699 9008 E21.3 Essential hypertension 95000104 I10 Adult heal th examination 058507882 Z00.00 [id number] MARK HERNANDEZ [address] [address] 06/27/2024 09:16:30 06/27/2024 10:03:14 Acute urinary tract infection 492197334 N39.0 Diarrhea 63189875 R19.7 [id number] AYAN SAMUELS [address] [address] 10/01/2024 12:25:04 10/01/2024 13:41:53 Active or passive immunization 236662848 Z23 Chronic ki dney disease stage 3 248506096 N18.30 Essential hypertension 08589991 I10 Hyperparathyroidism 6699 9008 E21.3 Senile osteoporosis 1804 0001 M81.0 Hypomagnesemia 221525678 E83.42 Health Concerns Section Related Observation LastModified by Organization Detai ls LastModified Time None Recorded Concern Status LastModified by Organization Details LastModified Time None Recorded Advance Directives Directive None Recorded Payers Encounter Date Sequence Insurance Name Policy Number Policy [employer] Covered Member ID Cox Member ID Guarantor Name 01/08/2024 1 [place] [employer] Lena Alexandre [id number] Lena Alexandre 01/08/2024 2 [facility] (MEDICAID) Lena Alexandre [id number] Lena Alexandre 02/18/2024 1 [place] Lena Alexandre [id number] Lena Alexandre 02/18/2024 2 FOR LIFE () Lena Alexandre [id number] Lena Alexandre 03/12/2024 2 FOR LIFE () Lena Alexandre [id number] Lena Alexandre 03/12/2024 1 [employer] (MEDICARE REPLACEMENT/A DVANTAGE - PPO) Lena Alexandre [id number] Lena Alexandre 06/27/2024 2 FOR LIFE () Lena Alexandre [id number] Lena Alexandre 06/27/2024 1 [employer] (MEDICARE REPLACEMENT/A DVANTAGE - PPO) Lena Alexandre [id number] Lena Alexandre Notes Date Note Type Note Provider Name and Address Organization Details Recorded Time 01/08/2024 text/html Hypertension follow-up. She would like evaluation of [...] left ankle in 2000. [address], [place], [address], [facility] 02/06/2024 13:55:35 03/12/2024 text/html Patient is here today for annual exam. [address], [place], [address], [facility]. 03/12/2024 15:35:18 06/27/2024 text/html The patient, Lena, presents with a chief complaint of lower abdominal cramping that started on Sunday. She reports no change in diarrhea. She is unsure if she is experiencing increased urination, as she typically urinates frequently. She denies any pain during urination but mentions mild back pain.Lena describes the cramping as being localized in the lower abdomen and extending to the sides of her back. She denies any fever but reports experiencing chills, alternating between feeling hot and cold. She denies any chest pain or palpitations. She mentions that the abdominal pain has moved slightly higher today but is not significantly higher.The patient reports a history of chronic diarrhea. She has tried fiber supplements such as Metamucil and Benefiber without significant improvement. Lena has a history of gallbladder surgery and was previously on a cholesterol medication, possibly colestyramine, for loose stools. [address], [place], [address], [facility]. 06/27/2024 10:07:20 OBGyn Episode No OBEpisode recorded.
--- OUTSIDE RECORDS SUMMARY | 2024-10-01 21:12 | XMS_ITS | Encounter Summary ---
Author Organization [facility] Address [facility] [place] [address] Care Team Providers Care Road Conductor Name Role Phone Destinee Bhatt APRN Primary Care Provider [phone] Reason for Visit * Consultation (Routine) - Closed Specialty Diagnoses / Procedures Referred By Contjayde t Referred To Contact Allergy Diagnoses Rash and other nonspecific skin eruption Destinee Bhatt APRN [address] [place] [address] [facility] [address] [place] [address] Referral ID Status Reason Start Date Expiration Date V isits Requested Visits Authorized [id number] Closed Consult, Test & Treat Connection Center PCP Updated and/or Approved 08/18/2020 08/18/2021 12 12 Encounter Details Date Type Department Care Team (Late st Contact Info) Description 09/17/2020 9:30 AM EST [place] [id number] Jaylene Gaston MD [facility] [place] [address] Rash; Allergy to [place] house dust mite Social History Tobacco Use [...] 2001, she was seen by [facility] for chronic allergic rhinitis, and underwent skin testing, which appears to have been positive for dust mite and cat (though the original report is not available). She underwent immunotherapy for dust mites between 3813-9171. She has been using dust mite coversfor [...] since this work-up, and has been taking [id number] daily for at least the past few years. Since being on these medications, she has had improvement in her sinus headaches. She has generic fluticasone at home, however has not trialed daily usage of it. ticasone In the past year (patient is unsure of the date), a skin biopsy was performed by her PCP (Marko Duffy APRN at [facility]), which was suggestive that her skin rash was medication triggered. She was taken off of multiple medications, including lisinopril, statins, and other antihypertensives, with no improvement in her rash. She has since been restarted on lisinopril. She was the referred to Dermatology at [place] in May of this year, who noted [...] also saw the rash. She went to [facility] ED, who suspected it was likely allergy-related [...] Active Problem List Diagnosis Code ??? Reflux [id number] ??? Nephrolithiasis N20.0 ??? Liver disease K76.9 [...] Tablet ??? fluticasone propionate (FLONASE) 50 mcg/actuation [place], Suspension ??? lisinopriL (Prinivil;Zestril) 20 mg Tablet ??? pantoprazole EC (Protonix) 40 mg Tablet, Delayed Release (E.C.) ??? penicillin v potassium (VEETID) 500 mg Tablet ??? Advair Diskus 100-50 mcg/dose Disk with Device ??? alendronate (Fosamax) 70 mg Tablet ??? potassium chloride ER (K-Dur/Klor-Con) 20 mEq Tab Sust.Rel. Particle/Crystal ??? cetirizine (ZYRTEC) 10 mg Tablet ??? atorvastatin (LIPITOR) 20 mg Tablet ??? Tsyidjp-Ausqwqzwd-Qkak 333-133-5 mg Tablet ??? atenolol (TENORMIN) 100 mg Tablet ??? NEXIUM 40 mg Capsule, Delayed Release(E.C.) ??? prochlorperazine (COMPAZINE) 10 mg Tablet ??? Mometasone (NASONEX) 50 mcg/Actuation [place] ??? acetaminophen (TYLENOL) 500 mg tablet ??? [...] allergies, she was treated with immunotherapy between 2293-8893 and reports regular laundering of her dust [...] and other nonspecific skin eruption Allergy to [place] house dust mite documented in this encounter Care Teams Road Conductor Relationship Specialty Start Date End Date Destinee Bhatt APRN [address] [place] [address] PCP - General Family Medicine 08/23/20 documented as of this encounter
--- OUTSIDE RECORDS SUMMARY | 2024-10-01 21:12 | XMS_ITS | Encounter Summary ---
Author Organization [facility] [place] [address] Care Team Providers Care Produce Weigher Name Role Phone MillerDestinee SHARONA Primary Care Provider [phone] Encounter Details Date Type Department Care Team (Latest Contact Info) Description 09/07/2023 2:00 PM EST Office Visit [place] [id number] Kriss Florian VOICE ENGINEER [facility] [place] [address] Stage 3a chronic kidney disease (Primary Dx); [...] from the original note were not included. [facility] NEPHROLOGY/HYPERTENSION CLINIC FOLLOW-UP NOTE [id number] ID: 63 y.o.year-old female for follow up of CKD. Past Medical History: Patient Active Problem List Diagnosis Code Reflux [id number] Nephrolithiasis N20.0 Liver disease K76.9 Hypertension I10 [...] as needed. fluticasone propionate (FLONASE) 50 mcg/actuation [place], Suspension SPRAY 1 2 SPRAYS INTO EACH [...] Take 10 mg by mouth daily. [DISCONTINUED] Nkrspfo-Boyktaewt-Ypvp 333-133-5 mg Tablet Take by mouth daily. prochlorperazine (COMPAZINE) 10 mg Tablet every 8 hours as needed. [DISCONTINUED] Mometasone (NASONEX) 50 mcg/Actuation [place] by Nasal route as needed. No facility-administered [...] Negative mcL Appearance UA Clear Clear Spec [place] UA 1.020 1.005 - 1.030 Color UA [...] coordination of care. Kriss Flor[facility]N [facility] 2[facility], [employer] [address] [place] [address] CC: Destinee Bhatt APRN @[email or web address]@ documented in this encounter Plan of Treatment Not on file documented as of this encounter Results * (ABNORMAL) Protein/Creatinine Ratio, urine (09/07/2023 1:24 PM EST) Creatinine, Urine 150 mg/dL [facility] Protein, Urine 15(H) 0 - 12 mg/dL [facility] Protein / Creatinine Ratio, Urine <0.1 ratio [facility] Urine 09/07/2023 1:24 PM EST 09/07/2023 1:34 PM EST Narrative Resulting Agency Comment Spec In Lab Kriss Florian APRN URINE ORD ERABLES [facility] [place] [address] * U Albumin/Cre Ratio (09/07/2023 1:24 PM EST) Albumin / Creatinin Ratio, Urine 3 0 - 29 mcg/mg Cr [facility] Comment: Reference Ranges: <30 mcg/mg: Normal [...] Urine 5.1 mg/L [facility] Creatinine, Urine 150 mg/dL [facility] Urine 09/07/2023 1:24 PM EST 09/07/2023 1:34 PM EST Narrative Resulting Agency Comment Spec In Lab Kriss Keyes LawsSophie VOICE ENGINEER URINE ORD ERABLES Performing Organization Address City/[facility]/ZIP Co de Phone Number [facility] [place] [address] * (ABNORMAL) _Urinalysis with microscopic (09/07/2023 1:24 PM EST) Glucose, Urine Dipstick Negative Negative mg/dL [facility] Protein, Urine Dipstick Negative Negative mg/dL [facility] Bilirubin, Urine Dipstick Negative Negative mg/dL [facility] Comment: Clinical correlation required for positive Urine Bilirubin results as false positive may occur with some drugs and drug related products. If a false positive is suspected a serum total bilirubin should be considered if clinically indicated. Urobilinogen, Urine Dipstick Normal Normal mg/dL [facility] pH, Urn (dipstick) 5.5 5.0 - 8.0 [facility] Blood, Urine Dipstick Negative Negative mg/dL [facility] Ketone, Urine Dipstick Negative Negative mg/dL [facility] Nitrite, Urine Dipstick Negative Negative [facility] Leukocytes, Urine Dipstick Negative Negative mcL [facility] Appearance, Urine Dipstick Clear Clear [facility] Specific [place] Urine Automated 1.020 1.005 - 1.030 [facility] Color, Urine Dipstick Yellow Yellow [facility] RBC, Urine 1 0 - 4 /HPF [facility] WBC, Urine 2 0 - 5 /HPF [facility] Squamous Epithelial Cells Raw Data, Urine 5(H) <=4 /HPF [facility] Hyaline Casts, Urine 3(H) 0 - 2 /LPF [facility] Urine 09/07/2023 1:24 PM EST 09/07/2023 1:34 PM EST Narrative Resulting Agency Comment Spec In Lab Kriss Keyes LawsSophie VOICE ENGINEER URINE ORD ERABLES Performing Organization Address City/[facility]/ZIP Co de Phone Number [facility] [place] [address] * Phosphorus (09/07/2023 12:40 PM EST) Phosphorus 4.2 2.5 - 4.5 mg/dL [facility] Blood 09/07/2023 12:4 0 PM EST 09/07/2023 12:58 PM EST Narrative Resulting Agency Comment Spec In Lab Kriss Keyes Chiqui VOICE ENGINEER CHEMISTRY ORDERABLES [facility] [place] [address] * (ABNORMAL) PTH (09/07/2023 12:40 PM EST) Parathyroid Hormone 75(H) 15 - 65 pg/mL [facility] Blood 09/07/2023 12:4 0 PM EST 09/07/2023 12:58 PM EST Narrative Resulting Agency Comment Spec In Lab Kriss Keyes Chiqui VOICE ENGINEER CHEMISTRY ORDERABLES Performing Organization Address City/[facility]/ZIP Co de Phone Number [facility] [place] [address] * Uric acid (09/07/2023 12:40 PM EST) Uric Acid 6.0 2.5 - 6.5 mg/dL [facility] Blood 09/07/2023 12:4 0 PM EST 09/07/2023 12:58 PM EST Narrative Resulting Agency Comment Spec In Lab Kriss Keyes Chiqui VOICE ENGINEER CHEMISTRY ORDERABLES [facility] [place] [address] * Vitamin D, 25-Hydroxy (09/07/2023 12:40 PM EST) Vitamin D Total 25 OH 32 21 - 100 ng/mL [facility] Vit D Interp Sufficient [facility] Blood 09/07/2023 12:4 0 PM EST 09/07/2023 12:58 PM EST Narrative Resulting Agency Comment Spec In Lab Kriss Florian APRN CHEMISTRY ORDERABLES [facility] [address] [place] [address] * (ABNORMAL) Basic Metabolic Panel (non-fasting) (09/07/2023 12:40 PM EST) Glucose 113 65 - 199 mg/dL [facility] Comment:Diabetes: >=200 mg/d L plus symptoms Blood Urea Nitrogen 16 8 - 18 mg/dL [facility] Creatinine 1.19 0.70 - 1.20 mg/dL [facility] Sodium 143 135 - 145 mmol/L [facility] Potassium 3.7 3.5 - 5.0 mmol/L [facility] Comment: Please note: ??Patients with WBC >100,000 may have falsely elevated Potassium levels. ??For accurate Potassium quantification in these patients send serum separator tube (gold top) for subsequent determinations. ??Contact the Clinical Chemistry Laboratory if there are any questions. Chloride 107 98 - 107 mmol/L [facility] Carbon Dioxide 25 22 - 31 mmol/L [facility] Anion Gap 11 5 - 15 mmol/L [facility] Calcium 8.7 8.5 - 10.5 mg/dL [facility] Est Glomerular Filtration Rate 51(L) >=60 mL/min/1. 73 m?? [facility] Comment: This patient's estimated GFR was [...] Agency Comment Spec In Lab Kriss Florian VOICE ENGINEER CHEMISTRY ORDERABLES Performing Organization Address City/[facility]/ZIP Co de Phone Number [facility] [place] [address] * Albumin Level (09/07/2023 12:40 PM EST) Albumin 4.4 3.2 - 5.2 g/dL [facility] Blood 09/07/2023 12:4 0 PM EST 09/07/2023 12:58 PM EST Narrative Resulting Agency Comment Spec In Lab Kriss Florian VOICE ENGINEER CHEMISTRY ORDERABLES Performing Organization Address City/[facility] [place] [address] documented in this encounter Visit Diagnoses Diagnosis Stage 3a chronic kidney disease- Primary Hypertension, unspecified type Chronic obstructive pulmonary disease, unspecified COPD type Hx of multiple trauma Personal history of other injury Acute renal disease Unspecified disorder of kidney and ureter Nephrolithiasis Calculus of kidney documented in this encounter Care Teams Produce Weigher Relationship Specialty Start Date End Date Destinee Bhatt APRN [address] [place] [address] PCP - General Family Medicine 08/23/20 documented as of this encounter
--- OUTSIDE RECORDS SUMMARY | 2024-10-01 21:12 | XMS_ITS | Encounter Summary ---
Author Organization [facility] [place] [address] Care Team Providers Care Programming Engineer Name Role Phone Marko Duffy DNP Primary Care Provider [phone] Encounter Details Date Type Department Care Team (Latest Contact Info) Description 04/07/2020 3:00 PM EDT Office Visit [place] [phone] Benitez Adames MD [facility] [place] [address] CKD (chronic kidney disease) stage 3, GFR [...] Take 20 mg by mouth daily. ??? Anfzfxr-Xkizetnvg-Feyt 333-133-5 mg Tablet Take by mouth daily. ??? atenolol (TENORMIN) 100 mg Tablet Take 100 mg by mouth daily. ??? NEXIUM 40 mg Capsule, Delayed Release(E.C.) Take 40 mg by mouth daily. ??? prochlorperazine (COMPAZINE) 10 mg Tablet every 8 hours as needed. ??? Mometasone (NASONEX) 50 mcg/Actuation [place] by Nasal route as needed. ??? acetaminophen [...] Benitez Adames MD, MPH Section of Nephrology #[id number] documented in this encounter Plan of Treatment Not on file documented as of this encounter Results * (ABNORMAL) Basic Metabolic Panel (non-fasting) (03/17/2021 2:13 PM EDT) Glucose 105 65 - 199 mg/dL [facility] Comment:Diabetes: >=200 mg/d L plus symptoms Blood Urea Nitrogen 23(H) 8 - 18 mg/dL [facility] Creatinine 1.23(H) 0.70 - 1.20 mg/dL [facility] Sodium 143 135 - 145 mmol/L [facility] Potassium 4.2 3.5 - 5.0 mmol/L [facility] Comment: Please note: ??Patients with WBC >100,000 may have falsely elevated Potassium levels. ??For accurate Potassium quantification in these patients send serum separator tube (gold top) for subsequent determinations. ??Contact the Clinical Chemistry Laboratory if there are any questions. Chloride 106 98 - 107 mmol/L [facility] Carbon Dioxide 26 22 - 31 mmol/L [facility] Anion Gap 11 5 - 15 mmol/L [facility] Calcium 9.0 8.5 - 10.5 mg/dL [facility] Est Glomerular Filtration Rate 48(L) >=60 mL/min/1. 73 m?? [facility] Comment: This patient? s estimated [...] In Lab Benitez Adames MD CHEMISTRY ORDERABLES [facility] [place] [address] documented in this encounter Visit Diagnoses Diagnosis CKD (chronic kidney disease) stage 3, GFR 30-59 ml/min Chronic kidney disease, Stage III (moderate) Hypertensive kidney disease with CKD stage III Unspecified hypertensive kidney disease with chronic kidney disease stage I through stage IV, or unspecified documented in this encounter Care Teams Programming Engineer Relationship Specialty Start Date End Date Marko Duffy DNP [facility] [address] [place] [address] PCP - General Family Medicine 07/10/19 08/22/20 documented as of this encounter
--- OUTSIDE RECORDS SUMMARY | 2024-10-01 21:12 | XMS_ITS | Encounter Summary ---
[place] [address] Care Team Providers Care Boxing Instructor Name Role Phone Marko Duffy DNP Primary Care Provider [phone] Encounter Details Date Type Department Care Team (Latest Contact Info) Description 04/07/2020 2:00 PM EDT Laboratory Appointment Lab [address] [place] [address] Chronic kidney disease, unspecified CKD [...] EDT) Glucose 135 65 - 199 mg/dL [facility] Comment:Diabetes: >=200 mg/d L plus symptoms Blood Urea Nitrogen 16 8 - 18 mg/dL [facility] Creatinine 1.13 0.70 - 1.20 mg/dL [facility] Sodium 142 135 - 145 mmol/L [facility] Potassium 4.0 3.5 - 5.0 mmol/L [facility] Comment: Please note: ??Patients with WBC >100,000 may have falsely elevated Potassium levels. ??For accurate Potassium quantification in these patients send serum separator tube (gold top) for subsequent determinations. ??Contact the Clinical Chemistry Laboratory if there are any questions. Chloride 104 98 - 107 mmol/L [facility] Carbon Dioxide 24 22 - 31 mmol/L [facility] Anion Gap 14 5 - 15 mmol/L [facility] Calcium 8.2(L) 8.5 - 10.5 mg/dL [facility] Est Glomerular Filtration Rate 53(L) >=60 mL/min/1. 73 m?? [facility] Comment: The eGFR was calculated using the CKD-EPI equation. As with all creatinine based estimates of kidney function, eGFR values calculated with the CKD-EPI equation are not accurate in patients with acute kidney failure, extremes of body mass or the acutely ill. [email or web address] eGFR 61 >=60 mL/min/1. 73 m?? [facility] Comment: The eGFR was calculated using the CKD-EPI equation. As with all creatinine based estimates of kidney function, eGFR values calculated with the CKD-EPI equation are not accurate in patients with acute kidney failure, extremes of body mass or the acutely ill. [email or web address] Blood specimen (specimen) 04/07/2020 1:55 PM EDT 04/07/2020 2:05 PM EDT Narrative Resulting Agency Comment Spec In Lab Benitez Adames MD CHEMISTRY ORDERABLES [facility] [place] [address] documented in this encounter Visit Diagnoses Diagnosis Chronic kidney disease, unspecified CKD stage CKD (chronic kidney disease) stage 3, GFR 30-59 ml/min Chronic kidney disease, Stage III (moderate) documented in this encounter Care Teams Boxing Instructor Relationship Specialty Start Date End Date Marko Duffy DNP [facility] [address] [place] [address] PCP - General Family Medicine 07/10/19 08/22/20 documented as of this encounter
--- OUTSIDE RECORDS SUMMARY | 2024-10-01 21:12 | XMS_ITS | Encounter Summary ---
[place] [address] Care Team Providers Care Physician/Ophthalmologist Name Role Phone Miller Destinee SHARONA Primary Care Provider [phone] Encounter Details Date Type Department Care Team (Latest Contact Info) Description 02/27/2024 2:40 PM EDT Laboratory Appointment Lab [address] [place] [phone] Nephrolithiasis; Hypertension, unspecified type; Stage 3 chronic [...] Glucose, Urine Dipstick Negative Negative mg/dL [facility] Protein, Urine Dipstick Negative Negative mg/dL [facility] Bilirubin, Urine Dipstick Negative Negative mg/dL [facility] Comment: Clinical correlation required for positive Urine Bilirubin results as false positive may occur with some drugs and drug related products. If a false positive is suspected a serum total bilirubin should be considered if clinically indicated. Urobilinogen, Urine Dipstick Normal Normal mg/dL [facility] pH, Urn (dipstick) 5.0 5.0 - 8.0 [facility] Blood, Urine Dipstick Negative Negative mg/dL [facility] Ketone, Urine Dipstick Negative Negative mg/dL [facility] Nitrite, Urine Dipstick Negative Negative [facility] Leukocytes, Urine Dipstick Negative Negative mcL [facility] Appearance, Urine Dipstick Clear Clear [facility] Specific Supai Urine Automated 1.019 1.005 - 1.030 [facility] Color, Urine Dipstick Yellow Yellow [facility] RBC, Urine 0 0 - 4 /HPF [facility] WBC, Urine 2 0 - 5 /HPF [facility] Squamous Epithelial Cells Raw Data, Urine 4 <=4 /HPF [facility] Hyaline Casts, Urine 2 0 - 2 /LPF [facility] Urine 02/27/2024 4:00 PM EDT 02/27/2024 4:44 PM EDT Narrative Resulting Agency Comment Spec In Lab Kriss Florian APRN URINE ORD ERABLES [facility] [place] [address] * U Albumin/Cre Ratio (02/27/2024 4:00 PM EDT) Albumin / Creatinin Ratio, Urine 2 0 - 29 mcg/mg Cr [facility] Comment: Reference Ranges: <30 mcg/mg: [...] 357? 362 Albumin, Urine 3.1 mg/L [facility] Creatinine, Urine 126 mg/dL [facility] Urine 02/27/2024 4:00 PM EDT 02/27/2024 4:44 PM EDT Narrative Resulting Agency Comment Spec In Lab Kriss Florian APRN URINE ORD ERABLES Performing Organization Address City/[facility]/ZIP Co de Phone Number [facility] [place] [address] * Protein/Creatinine Ratio, urine (02/27/2024 4:00 PM EDT) Creatinine, Urine 126 mg/dL [facility] Protein, Urine 8 0 - 12 mg/dL [facility] Protein / Creatinine Ratio, Urine <0.1 ratio [facility] Urine 02/27/2024 4:00 PM EDT 02/27/2024 4:44 PM EDT Narrative Resulting Agency Comment Spec In Lab Kriss Florian APRN URINE ORD ERABLES [facility] [place] [address] * Differential, Automated (02/27/2024 2:45 PM EDT) Neutrophil % 57.4 % [facility] Neutrophil Absolute 4.70 1.70 - 6.10 x10(3)/[facility] Lymph % 26.4 % [facility] Lymphocytes Abs 2.2 0.9 - 3.2 x10(3)/[facility] Monocyte % 11.0 % [facility] Monocyte Abs 0.9 0.3 - 0.9 x10(3)/[facility] Eos % 4.2 % [facility] Eosinophils Abs 0.3 0.0 - 0.4 x10(3)/[facility] Basophil % 0.6 % [facility] Baso Absolute 0.0 0.0 - 0.1 x10(3)/[facility] Immature Gran % 0.40 % [facility] Comment: Immature granulocytes(IG's)percentage and absolute count will include metamyelocytes, myelocytes, and promyelocytes. Blood smears from CBCs yielding IG's will be scanned manually for concordance. If this scan disagrees with the automated IG or if promyelocytes are noted, a manual differential will be performed. Immature Gran Absolute 0.03 0.00 - 0.04 x10(3)/[facility] Blood 02/27/2024 2:45 PM EDT 02/27/2024 2:51 PM EDT Narrative Resulting Agency Comment Spec In Lab Kriss Florian NIGHT CLERK AUDITOR HEMATOLOG Y ORDERABLES [facility] [place] [address] * (ABNORMAL) Hemogram (02/27/2024 2:45 PM EDT) [facility] White Blood Cell 8.2 4.0 - 9.5 x10(3)/[facility] Red Blood Cell 4.11 4.00 - 5.21 x10(6)/[facility] Hemoglobin 11.8 11.7 - 15.5 g/dL [facility] Hematocrit 37.4 35.7 - 45.8 % [facility] Mean Cell Volume 91.0 82.6 - 94.4 [facility] Mean Cell Hemoglobin 28.7 27.1 - 32.0 pg [facility] Mean Cell Hemoglobin Concentration 31.6(L) 31.7 - 35.0 g/dL [facility] Platelet 232 145 - 357 x10(3)/mc L [facility] RDW Standard Deviation 44.7 37.0 - 46.0 [facility] RDW coefficient of variation 13.3 11.5 - 14.1 % [facility] Mean Platelet Volume 10.4 7.6 - 12.9 fL [facility] NRBC% auto 0.0 % [facility] NRBC Absolute 0.000 0.000 - 0.000 x10(3)/mc L [facility] Blood 02/27/2024 2:45 PM EDT 02/27/2024 2:51 PM EDT Narrative Resulting Agency Comment Spec In Lab Kriss Florian NIGHT CLERK AUDITOR HEMATOLOG Y ORDERABLES Performing Organization Address City/[facility]/ZIP Co de Phone Number [facility] [place] [address] * Albumin Level (02/27/2024 2:45 PM EDT) Albumin 4.1 3.2 - 5.2 g/dL [facility] Blood 02/27/2024 2:45 PM EDT 02/27/2024 2:51 PM EDT Narrative Resulting Agency Comment Spec In Lab Kriss Florian NIGHT CLERK AUDITOR CHEMISTRY ORDERABLES Performing Organization Address City/[facility]/ZIP Co de Phone Number [facility] [place] [address] * (ABNORMAL) Basic Metabolic Panel (non-fasting) (02/27/2024 2:45 PM EDT) Glucose 91 65 - 199 mg/dL [facility] Comment:Diabetes: >=200 mg/d L plus symptoms Blood Urea Nitrogen 21(H) 8 - 18 mg/dL [facility] Creatinine 1.27(H) 0.70 - 1.20 mg/dL [facility] Sodium 142 135 - 145 mmol/L [facility] Potassium 4.1 3.5 - 5.0 mmol/L [facility] Comment: Please note: ??Patients with WBC >100,000 may have falsely elevated Potassium levels. ??For accurate Potassium quantification in these patients send serum separator tube (gold top) for subsequent determinations. ??Contact the Clinical Chemistry Laboratory if there are any questions. Chloride 107 98 - 107 mmol/L [facility] Carbon Dioxide 24 22 - 31 mmol/L [facility] Anion Gap 11 5 - 15 mmol/L [facility] Calcium 8.6 8.5 - 10.5 mg/dL [facility] Est Glomerular Filtration Rate 48(L) >=60 mL/min/1. 73 m?? [facility] Comment: This patient's estimated [...] Comment Spec In Lab Kriss W Laws-Harry NIGHT CLERK AUDITOR CHEMISTRY ORDERABLES [facility] [place] [address] * Vitamin D, 25-Hydroxy (02/27/2024 2:45 PM EDT) Vitamin D Total 25 OH 39 21 - 100 ng/mL [facility] Vit D Interp Sufficient [facility] Blood 02/27/2024 2:45 PM EDT 02/27/2024 2:51 PM EDT Narrative Resulting Agency Comment Spec In Lab Kriss Keyes Chiqui LOOMISN CHEMISTRY ORDERABLES Performing Organization Address City/[facility]/ZIP Co de Phone Number [facility] [place] [address] * Uric acid (02/27/2024 2:45 PM EDT) Uric Acid 6.3 2.5 - 6.5 mg/dL [facility] Blood 02/27/2024 2:45 PM EDT 02/27/2024 2:51 PM EDT Narrative Resulting Agency Comment Spec In Lab Kriss Keyes Chiqui LOOMISN CHEMISTRY ORDERABLES Performing Organization Address City/[facility]/ZIP Co de Phone Number [facility] [place] [address] * Phosphorus (02/27/2024 2:45 PM EDT) Phosphorus 3.9 2.5 - 4.5 mg/dL [facility] Blood 02/27/2024 2:45 PM EDT 02/27/2024 2:51 PM EDT Narrative Resulting Agency Comment Spec In Lab Kriss Keyes Chiqui NIGHT CLERK AUDITOR CHEMISTRY ORDERABLES [facility] [place] [address] * (ABNORMAL) PTH (02/27/2024 2:45 PM EDT) Parathyroid Hormone 96(H) 15 - 65 pg/mL [facility] Blood 02/27/2024 2:45 PM EDT 02/27/2024 2:51 PM EDT Narrative Resulting Agency Comment Spec In Lab Kriss Florian NIGHT CLERK AUDITOR CHEMISTRY ORDERABLES [facility] [place] [address] documented in this encounter Visit Diagnoses Diagnosis Nephrolithiasis Calculus of kidney Hypertension, unspecified type Stage 3 chronic kidney disease, unspecified whether stage 3a or 3b CKD documented in this encounter Care Teams Physician/Ophthalmologist Relationship Specialty Start Date End Date Destinee Bhatt APRN [address] [place] [address] PCP - General Family Medicine 08/23/20 documented as of this encounter
--- OUTSIDE RECORDS SUMMARY | 2024-10-01 21:12 | XMS_ITS | Encounter Summary ---
[place] [address] Care Team Providers Care Bottom Cementer Name Role Phone Destinee Bhatt APRN Primary Care Provider [phone] Encounter Details Date Type Department Care Team (Late st Contact Info) Description 02/13/2024 Telephone [place] [phone] Yolanda Chan Social History Tobacco Use Types [...] on filedocumented in this encounter Care Teams Bottom Cementer Relationship Specialty Start Date End Date Destinee Bhatt APRN [address] [place] [address] PCP - General Family Medicine 08/23/20 documented as of this encounter
--- OUTSIDE RECORDS SUMMARY | 2024-10-01 21:12 | XMS_ITS | Encounter Summary ---
[place] [address] Care Team Providers Care Muck Hauler Name Role Phone Destinee Bhatt APRN Primary Care Provider [phone] Encounter Details Date Type Department Care Team ([facility] st Contact Info) Description 09/18/2022 Telephone Nephrology [place] [phone] Karen Chatterjee Social History Tobacco Use Types [...] filedocumented in this encounter Care Teams Muck Hauler Relationship Specialty Start Date End Date Destinee Bhatt APRN [address] [place] [address] PCP - General Family Medicine 08/23/20 documented as of this encounter
--- OUTSIDE RECORDS SUMMARY | 2024-10-01 21:13 | XMS_ITS | Encounter Summary ---
Author Organization [facility] Address [address] [place] [address] Care Team Providers Care Automation And Controls Manager Name Role Phone Dale Gomez MD Primary Care Provider [phone] Encounter Details Date Type Department Care Team (Late st Contact Info) Description 12/24/2002 Results Only [facility] [address] [place] [address] Brittanie Judd, INTERTYPE OPERATOR [address] [facility],[address] [address] Social History Tobacco Use Types Packs/Day Years Used Date Smoking Tobacco: Never Assessed Comments Unknown Sex and Gender Information Value Date Recorded Sex Assigned at Not on file Legal Sex Female 18:17 EST Gender Identity Not on file Sexual Orientation [...] ? LAURA HARRIS ? Accession #: ? [id number] : ? 1960 (Age: 42) ??F ?Collect Date: ? 12/24/2002 Location: ? [facility] ? Receive Date: ? 12/26/2002 Provider: ?BRITTANIE JUDD INTERTYPE OPERATOR Copy to: ? Specimen/Source: ?ThinPrep Pap [...] End of Report [facility] 12/24/2002 12/26/2002 us Brittanie Judd NP PATHOLOGY ORDERABLES Final R esult [facility] [address] [place] [address] documented in this encounter Visit Diagnoses Not on filedocumented in this encounter Care Teams Automation And Controls Manager Relationship Specialty Start Date End Date Dale Gomez MD [address] [place] [address] PCP - General 12/06/09 09/20/22 documented as of this encounter
--- OUTSIDE RECORDS SUMMARY | 2024-10-01 21:13 | XMS_ITS | Encounter Summary ---
Author Organization [facility] Address [facility] [place] [address] Care Team Providers Care Road Boss Name Role Phone Stephany Molina APRN Primary Care Provider [phone] Reason for Visit * Reason Comments Pain Management Pain, Chronic Back Pain * Consultation ([facility]) - Closed Specialty Diagnoses / Procedures Referred By Contac t Referred To Contact Pain Management Diagnoses Chronic pain. Left ankle and back. Stephany Molina APRN [address] [place] [address] [facility] [address] [place] [address] [facility] [address] [place] [phone] Referral ID Status Reason Start Date Expiration Date V isits Requested Visits Authorized [id number] Closed Consult, [facility] 05/17/2016 05/17/2017 1 1 Encounter Details Date Type Department Care Team (Late st Contact Info) Description 07/20/2016 5:00 PM EDT Office [place] [phone] Felipe Rubio MD [facility] [place] [address] Chronic bilateral low back pain without sciatica [...] NOT TRIALED PT Pool tx yes x [id number] yes .Functional Scientologist Program x 2004 yes TENS PROCEDURES/SURGERY TYPE [...] a benzodiazepine? Yes Current use of other TAPE LIBRARIAN depressant? No Current diagnosis of Obstructive Seep [...] Zoloft [sertraline]; and Trazodone MEDICATIONS: Medications 07/20/16 7279 Medication Sig Taking? WELCHOL 625 mg Tablet Yes acetaminophen-codeine (TYLENOL #3) 300-30 mg Tablet Yes NEXIUM 40 mg Capsule, Delayed Release(E.C.) Yes lisinopril (PRINIVIL;ZESTRIL) 10 mg Tablet Yes prochlorperazine (COMPAZINE) 10 mg Tablet Yes fluticasone (FLONASE) 50 mcg/actuation [place], Suspension 1 spray daily. Yes melatonin 3 mg Tablet Take by mouth. Yes ferrous sulfate 325 mg (65 mg iron) Tablet Take 325 mg by mouth daily (with breakfast). Yes potassium chloride (MICRO-K) 10 mEq Capsule, Sustained Release Take 10 mEq by mouth 2 times daily. Yes Mometasone (NASONEX) 50 mcg/Actuation [place] by Nasal route. Yes acetaminophen (TYLENOL) 500 [...] in [place] [facility] [place] [facility] We discussed that her pain should be [...] to get into CBT at [facility] at this time due to staffing shortages. [...] PM EDT) U Benzo Conf See note [facility] Comment:Please see scanned r eport in Chart Review under the Non-DH Laboratory Heading. Urine specimen (specimen) 07/20/2016 4:45 PM EDT 07/21/2016 9:43 AM EDT Narrative Resulting Agency Comment Spec In Lab Felipe Rubio MD LAB SEND OUT ORDERAB LES [facility] [place] [address] * Drug Screen with Confirmation, Urine (07/20/2016 4:45 PM EDT) U VINNY w/Conf See note [facility] Comment:Please see scanned r eport in Chart Review under the Non-DH Laboratory Heading. Urine specimen (specimen) 07/20/2016 4:45 PM EDT 07/21/2016 9:43 AM EDT Narrative Resulting Agency Comment Spec In Lab Felipe Rubio MD URINE ORDERABLES [facility] [place] [id number] documented in this encounter Visit Diagnoses Diagnosis Chronic bilateral low back pain without sciatica- Primary Encounter for long-term opiate analgesic use Encounter for long-term (current) use of other medications documented in this encounter Care Teams Road Boss Relationship Specialty Start Date End Date Stephany Molina APRN PCP - General Family Medicine 05/17/16 05/21/19 documented as of this encounter
--- OUTSIDE RECORDS SUMMARY | 2024-10-01 21:13 | XMS_ITS | Encounter Summary ---
[place] [address] Care Team Providers Care Laboratory Mechanical Technician Name Role Phone Mikala Cortez APRN Primary Care Provider + Encounter Details Date Type Department Care Team (Latest Contact Info) Description 12/14/2010 3:00 PM EST Procedure [place] [phone] CLINIC, Karen Charles, glass tube bender Disposition: Home Social History Tobacco Use Types [...] on filedocumented in this encounter Care Teams Laboratory Mechanical Technician Relationship Specialty Start Date End Date Mikala Cortez APRN PCP - General 09/13/10 05/16/16 documented as of this encounter
--- OUTSIDE RECORDS SUMMARY | 2024-10-01 21:13 | XMS_ITS | Encounter Summary ---
Author Organization [facility] Address [address] [place] [address] Care Team Providers Care Doll Maker Name Role Phone Dale Gomez MD Primary Care Provider [phone] Encounter Details Date Type Department Care Team (Late st Contact Info) Description 07/11/2010 Results Only [facility] - [facility] [address] [place] [address] James Moody, AMMY [address] [place] [address] Social History Tobacco Use Types [...] ? LAURA HARRIS ? Accession #: ? [id number] ? : ? 1960 (Age: 50) ??F ?Collect Date: ? 07/11/2010 ? Location: ? [facility] ? Receive Date: ? 07/12/2010 ? Provider: JAMES MOODY CIRCULAR GANG SAW OPERATOR ? Copy to: ? Final Report [...] diagnosis. ? End of Report ? [facility] APONTE 07/11/2010 07/12/2010 us James Moody CIRCULAR GANG SAW OPERATOR PATHOLOGY ORDERABLES Final R esult [facility] [address] [place] [address] documented in this encounter Visit Diagnoses Not on filedocumented in this encounter Care Teams Doll Maker Relationship Specialty Start Date End Date Dale Gomez MD [address] [place] [phone] PCP - General 12/06/09 09/20/22 documented as of this encounter
--- OUTSIDE RECORDS SUMMARY | 2024-10-01 21:13 | XMS_ITS | Clinical Summary ---
Author Organization [facility] Address [address] [place] [address] Care Team Providers Care Boring And Filling Machine Operator Name Role Phone Miller Destinee MARK Primary Care Provider [phone] Social History Tobacco Use Types Packs/Day Years Used Date Smoking Tobacco: Never Assessed Interpersonal Safety Answer Date Record ed Physically Hurt Never 05/23/2020 Verbally Threaten Not on file 05/23/2020 Comments Unknown Sex and Gender Information Value Date Recorded Sex Assigned at Not on file Legal Sex Female 18:17 EST Gender Identity Not on file Sexual Orientation Not on file Plan of Treatment Health Maintenance Due Date Last Done Comments Hepatitis C Screen 1960 COVID-19 Vaccine (2023- season) 2024 RSV Immunization ( o r 60+ Years) (1 - 1-dose 75+ series) 2035 [address] [place] [address] [place] [address] [place] [address] Care Teams Boring And Filling Machine Operator Relationship Specialty Start Date End Date Destinee Bhatt FNP [address] [address] [facility] - General 09/21/22
--- OUTSIDE RECORDS SUMMARY | 2024-10-01 21:13 | XMS_ITS | Encounter Summary ---
Author Organization [facility] Address [address] [place] [address] Care Team Providers Care Wire Coiner Name Role Phone Dale Gomez MD Primary Care Provider [phone] Encounter Details Date Type Department Care Team (Late st Contact Info) Description 06/12/2016 Results Only [facility] [phone] Stephany Allen APRN [address] [place], [place] [id number] Social History Tobacco Use Types Packs/Day Years [...] ? LAURA HARRIS ? Accession #: ? [id number] ? : ? 1960 (Age: 56) ??F [...] and electronically signed by: ? Austin Almaguer, RAUL(ASCP) ? Report ??Date: 06/19/2016 13:13 HPV with Pap Test ? Date Ordered: ? 06/19/2016 ? Status: ?? Signed Out ?Date Complete: ? 06/21/2016 ? By: ??System Interface ? Date Reported: ? 06/21/2016 ? Interpretation RESULT: Negative for HPV. No E6 or E7 mRNA is detected from HPV types 16,18,31,33,35, 39,45,51,52,56,58, 59,66, and 68 by yeast maker mediated amplification. Comments Document reviewed and electronically signed by: ? System Interface ? Report date: 06/21/2016 By the signature above, the attending physician certifies that he/she has personally conducted a gross and/or microscopic examination of the described specimens and rendered or confirmed the above diagnosis. End of Report [facility] 06/12/2016 06/13/2016 us Stephany Allen APPLIANCE SERVICE TECHNICIAN PATHOLOGY ORDERABLES Final Re sult [facility] [address] [place] [address] documented in this encounter Visit Diagnoses Not on filedocumented in this encounter Care Teams Wire Coiner Relationship Specialty Start Date End Date Dale Gomez MD [address] [place] [address] PCP - General 12/06/09 09/20/22 documented as of this encounter
--- OUTSIDE RECORDS SUMMARY | 2024-10-01 21:13 | XMS_ITS | Encounter Summary ---
Author Organization [facility] [place] [address] Care Team Providers Care Salesperson Shoes Name Role Phone Jesse Stephany Flores APRN Primary Care Provider [phone] Encounter Details Date Type Department Care Team (Latest Contact Info) Description 09/27/2016 3:15 PM EST - 09/27/2016 3:19 PM EST Hospital Encounter XRay at [address] [place] [address] Glenn Mendiola Jr., MD [facility] [place] [address] Right knee pain, unspecified chronicity Discharge Disposition: [...] by mouth. 07/24 Mometasone (NASONEX) 50 mcg/Actuation [place] by Nasal route as needed. 09/07/2023 LACTOBACILLUS [...] XR Knee Standing Alignment AP Lat [place] Right (09/27/2016 4:17 PM EST) Anatomical Region [...] chronicity documented in this encounter Care Teams Salesperson Shoes Relationship Specialty Start Date End Date Stephany Molina APRN PCP - General Family Medicine 05/17/16 05/21/19 documented as of this encounter
--- OUTSIDE RECORDS SUMMARY | 2024-10-01 21:13 | XMS_ITS | Encounter Summary ---
Author Organization [facility] [place] [address] Care Team Providers Care Licensed Tax Consultant Name Role Phone Unavailable Primary Care Provider Unavailabl e Encounter Details Date Type Department Care Team (Late st Contact Info) Description 10/12/2009 Ancillary Procedure Radiology Library at [facility] [place] [phone] Destinee Bhatt APRN [address] [place] [address] Social History Tobacco Use Types Packs/Day Years [...] Only Mammo (10/12/2009 12:00 AM EST) Narrative [facility] - 02/27/2022 3:17 PM EDT This exam is auto-finalizing. It's purpose is for storage only. Destinee Bhatt APRN IMG FILM LIBRARY ORD ERABLES [place], [place] documented in this encounter Visit Diagnoses Not on filedocumented in this encounter
--- OUTSIDE RECORDS SUMMARY | 2024-10-01 21:13 | XMS_ITS | Encounter Summary ---
Author Organization [facility] Address [address] [place] [address] Care Team Providers Care Conservation Engineer Name Role Phone Dale Gomez MD Primary Care Provider [phone] Destinee Bhatt Primary Care Provider [phone] Encounter Details Date Type Department Care Team (Late st Contact Info) Description 11/19/[address] [facility] Pathology & Laboratory Medicine - Main [address] [address] Unknown, Provider, Social History Tobacco Use Types [...] 19 - 88 pg/mL 11/20/2019 10:33 EST [facility] Blood VENOUS BLOOD / Unknown 11/19/2019 11:38 EST 11/19/2019 15:20 EST us Provider Unknown CHEMISTRY & BLOOD GAS ORDERA BLES Final Result Performing Organization Address City/[facility] Co de Phone Number [facility] [address] [place] [address] * CELIAC DISEASE PANEL (11/19/2019 11:38 EST) Tissue Transglutaminase Antibody IGA <1.2 <4.0 U/mL 11/21/2019 12:36 EST [facility] Comment: A negative result may be due to IgA deficiency and does not rule out celiac disease. ? Negative: ??<4.0 U/mL ? Weak Positive: ??4.0 - 10.0 U/mL ? Positive: ??>10.0 U/mL Results were obtained with the Luminetx QUANTA Lite R h-tTG IgA DENNYS assay on the CEDU DSX. IgA 108 85 - 499 mg/dL 11/21/2019 12:36 EST [facility] Celiac Disease Interpretation Negative Serology. Celiac disease unlikely. Approximately 10% of patients with celiac disease are seronegative. Patients who are already adhering to a gluten-free diet may also be seronegative. If celiac disease is highly clinically suspected, referral to gastroenterology for additional evaluation is recommended. 11/21/2019 12:36 EST [facility] Blood VENOUS BLOOD / Unknown 11/19/2019 11:38 EST 11/19/2019 15:20 EST us Provider Unknown IMMUNOLOGY AND SEROLOGY [place] Final Result Performing Organization Address [facility]/ZIP Co de Phone Number [facility] [address] [place] [address] documented in this encounter Visit Diagnoses Not on filedocumented in this encounter Care Teams Conservation Engineer Relationship Specialty Start Date End Date Dale Gomez MD [address] [place] [phone] PCP - General 12/06/09 09/20/22 Destinee Bhatt FNP [address] [place] [address] [address] [place] [address] PCP - General 09/21/22 documented as of this encounter
--- OUTSIDE RECORDS SUMMARY | 2024-10-01 21:13 | XMS_ITS | Encounter Summary ---
Author Organization [facility] [place] [address] Care Team Providers Care Mechanical Facilities Technician Name Role Phone Mikala Cortez APRN Primary Care Provider + Reason for Visit * Reason Onset Date Comments GI Problem 01/27/2011 Encounter Details Date Type Department Care Team (Late st Contact Info) Description 01/27/2011 [place] [address] Lambert Humphrey APRN [facility] [place] [address] GI Problem Social History Tobacco Use Types [...] on filedocumented in this encounter Care Teams Mechanical Facilities Technician Relationship Specialty Start Date End Date Mikala Cortez APRN PCP - General 09/13/10 05/16/16 documented as of this encounter
--- OUTSIDE RECORDS SUMMARY | 2024-10-01 21:13 | XMS_ITS | Encounter Summary ---
Author Organization [facility] [place] [address] Care Team Providers Care Box Tender Name Role Phone Mikala Cortez APRN Primary Care Provider + Reason for Visit * Reason Comments Nephrolithiasis Encounter Details Date Type Department Care Team (Late st Contact Info) Description 06/13/2011 3:00 PM EDT [place] [address] CLINIC, Arnie Templeton Jr., MD [facility] [place] [address] Nephrolithiasis (Primary Dx) Discharge Disposition: Home Social [...] kidney documented in this encounter Care Teams Box Tender Relationship Specialty Start Date End Date iMkala Cortez APRN PCP - General 09/13/10 05/16/16 documented as of this encounter
--- OUTSIDE RECORDS SUMMARY | 2024-10-01 21:13 | XMS_ITS | Encounter Summary ---
Author Organization [facility] [place] [address] Care Team Providers Care On Site Property Manager Name Role Phone Mikala Cortez APRN Primary Care Provider + Encounter Details Date Type Department Care Team (Late st Contact Info) Description 06/13/2011 1:43 PM EDT - 06/13/2011 11:59 PM EDT Hospital En[place] [address] Social History Tobacco Use Types Packs/Day Years [...] mouth daily. 07/20/2016 Mometasone (NASONEX) 50 mcg/Actuation [place] by Nasal route as needed. 09/07/2023 polyethylene [...] 06/13/2011 04:13 pm) Patient Info ID: ? [id number] ? : ??[birth year] (51 yrs) Name: ? LAURA Heller ?Visit Date: 06/13/2011 02:31 pm ? [facility] Procedures URETRO - Retroperitoneal Complete - [id number] ? [id number] Indications Right stone. ??Left cyst vs dilated [...] Final 06/13/2011 04:13 pm) Patient Info ID: [id number] : 60 (51 yrs) Name: LAURA Heller Visit Date: 06/13/2011 02:31 pm [facility] Procedures URETRO - Retroperitoneal Complete - [id number] Indications Right stone. Left cyst vs dilated [...] on filedocumented in this encounter Care Teams On Site Property Manager Relationship Specialty Start Date End Date Mikala Cortez, SHARONA PCP - General 09/13/10 05/16/16 documented as of this encounter
--- OUTSIDE RECORDS SUMMARY | 2024-10-01 21:13 | XMS_ITS | Encounter Summary ---
Author Organization Pending Sale To [facility] [place] [address] Care Team Providers Care Choral Director Name Role Phone Marko Duffy DNP Primary Care Provider [phone] Reason for Visit * Consultation (Routine) - Specialty Diagnoses / Procedures Referred By Contjayde t Referred To Contact Nephrology Diagnoses Disorder of kidney and ureter, unspecified Abnormal results of kidney function studies Unspecified hydronephrosis Personal history of urinary calculi KIDNEY DISEASE, ELEVATED CREATININE Marko Duffy DNP [address] [facility] [address] [place] [address] [facility] Nephrology [address] [place] [phone] Referral ID Status Reason Start Date Expiration Date V isits Requested Visits Authorized [id number] Consult, Test & Treat Connection [facility] PCP Updated and/or Approved 06/24/2019 09/23/2019 6 6 Encounter Details Date Type Department Care Team (Latest Contact Info) Description 08/21/2019 3:00 PM EDT Office Visit [place] [address] Benitez Adames MD [facility] [place] [address] Chronic kidney disease, unspecified CKD [...] Take 20 mg by mouth daily. ??? Hyhzlap-Otgtfwhpt-Mtty 333-133-5 mg Tablet Take by mouth daily. [...] as needed. ??? Mometasone (NASONEX) 50 mcg/Actuation [place] by Nasal route as needed. ??? acetaminophen [...] Benitez Adames MD, MPH Section of Nephrology #[id number] documented in this encounter Plan of Treatment [...] EDT) Glucose 135 65 - 199 mg/dL [facility] Comment:Diabetes: >=200 mg/d L plus symptoms Blood Urea Nitrogen 16 8 - 18 mg/dL [facility] Creatinine 1.13 0.70 - 1.20 mg/dL [facility] Sodium 142 135 - 145 mmol/L [facility] Potassium 4.0 3.5 - 5.0 mmol/L [facility] Comment: Please note: ??Patients with WBC >100,000 may have falsely elevated Potassium levels. ??For accurate Potassium quantification in these patients send serum separator tube (gold top) for subsequent determinations. ??Contact the Clinical Chemistry Laboratory if there are any questions. Chloride 104 98 - 107 mmol/L [facility] Carbon Dioxide 24 22 - 31 mmol/L [facility] Anion Gap 14 5 - 15 mmol/L [facility] Calcium 8.2(L) 8.5 - 10.5 mg/dL [facility] Est Glomerular Filtration Rate 53(L) >=60 mL/min/1. 73 m?? [facility] Comment: The eGFR was calculated using the CKD-EPI equation. As with all creatinine based estimates of kidney function, eGFR values calculated with the CKD-EPI equation are not accurate in patients with acute kidney failure, extremes of body mass or the acutely ill. http://Kionix/[facility]MCnkf eGFR 61 >=60 mL/min/1. 73 m?? [facility] Comment: The eGFR was calculated using the CKD-EPI equation. As with all creatinine based estimates of kidney function, eGFR values calculated with the CKD-EPI equation are not accurate in patients with acute kidney failure, extremes of body mass or the acutely ill. http://[email or web address] Blood specimen (specimen) 04/07/2020 1:55 PM EDT 04/07/2020 2:05 PM EDT Narrative Resulting Agency Comment Spec In Lab Benitez Adames MD CHEMISTRY ORDERABLES [facility] [place] [address] * (ABNORMAL) Urine culture (08/21/2019 4:42 PM EDT) Urine Culture 50,000-99,000 cfu/ml Escherichia coli(A) [facility] Organism Escherichia coli(A) [facility] Urine specimen (specimen) 08/21/2019 4:42 [...] METHOD Sensitive Benitez Adames MD MICROBIOLOGY - [facility] ORDERABLES [facility] [place] [address] * (ABNORMAL) Urinalysis Microscopic Exam (08/21/2019 4:42 PM EDT) RBC, Urine 1 0 - 4 /HPF [facility] WBC, Urine 22(H) 0 - 5 /HPF [facility] Bacteria, Urine Few(A) None /HPF [facility] Squamous Epithelial Cells Raw Data, Urine 1 <=4 /HPF [facility] Urine specimen (specimen) 08/21/2019 4:42 PM EDT 08/21/2019 4:42 PM EDT Narrative Resulting Agency Comment Spec In Lab Benitez Adames MD URINE ORDERABLES Performing Organization Address [facility] Co de Phone Number [facility] [place] [address] * Protein/Creatinine Ratio, urine (08/21/2019 4:42 PM EDT) Creatinine, Urine 122 mg/dL [facility] Protein, Urine 10 0 - 12 mg/dL [facility] Protein / Creatinine Ratio, Urine <0.[address] [facility] Urine specimen (specimen) 08/21/2019 4:42 PM EDT 08/21/2019 4:42 PM EDT Narrative Resulting Agency Comment Spec In Lab Benitez Adames MD URINE ORDERABLES Performing Organization Address [facility] de Phone Number [facility] [place] [address] * Protein/Creatinine Ratio, urine (08/21/2019 4:42 PM EDT) Creatinine, Urine 124 mg/dL [facility] Protein, Urine 10 0 - 12 mg/dL [facility] Protein / Creatinine Ratio, Urine <0.[address] [facility] Urine specimen (specimen) 08/21/2019 4:42 PM EDT 08/21/2019 4:42 PM EDT Narrative Resulting Agency Comment Spec In Lab Benitez Adames MD URINE ORDERABLES Performing Organization Address [facility] Co de Phone Number [facility] [place] [address] * U Albumin/Cre Ratio (08/21/2019 4:42 PM EDT) Albumin / Creatinin Ratio, Urine 10 0 - 29 mcg/mg Cr [facility] Comment: Reference Ranges: <30 mcg/mg: [...] 2, 357? 362 Albumin, Urine 12.7 mg/L [facility] Creatinine, Urine 124 mg/dL [facility] Urine specimen (specimen) 08/21/2019 4:42 PM EDT 08/21/2019 4:42 PM EDT Narrative Resulting Agency Comment Spec In Lab Benitez Adames MD URINE ORDERABLES [facility] [address] * (ABNORMAL) Urinalysis with reflex Culture (08/21/2019 4:42 PM EDT) Glucose, Urine Dipstick Negative Negative mg/dL [facility] Protein, Urine Dipstick Negative Negative mg/dL [facility] Bilirubin, Urine Dipstick Negative Negative mg/dL [facility] Comment: Clinical correlation required for positive Urine Bilirubin results as false positive may occur with some drugs and drug related products. If a false positive is suspected a serum total bilirubin should be considered if clinically indicated. Urobilinogen, Urine Dipstick Normal Normal mg/dL [facility] pH, Urn (dipstick) 5.5 5.0 - 8.0 [facility] Blood, Urine Dipstick Negative Negative mg/dL [facility] Ketone, Urine Dipstick Negative Negative mg/dL [facility] Nitrite, Urine Dipstick Negative Negative [facility] Leukocytes, Urine Dipstick Small(A) Negative [facility] Appearance, Urine Dipstick Clear Clear [facility] Specific [place] Urine Automated 1.020 1.002 - 1.030 [facility] Color, Urine Dipstick Yellow Yellow [facility] Reflex to Culture Yes [facility] Urine specimen (specimen) 08/21/2019 4:42 PM EDT 08/21/2019 4:42 PM EDT Narrative Resulting Agency Comment Spec In Lab Benitez Adames MD URINE ORDERABLES [facility] [place] [address] * Differential, Automated (08/21/2019 4:28 PM EDT) Neutrophil % 61.7 % [facility] Neutrophil Absolute 5.58 1.70 - 6.10 x10(3)/[facility] Lymph % 24.9 % [facility] Lymphocytes Abs 2.2 0.9 - 3.2 x10(3)/[facility] Monocyte % 9.4 % [facility] Monocyte Abs 0.8 0.3 - 0.9 x10(3)/[facility] Eos % 3.3 % [facility] Eosinophils Abs 0.3 0.0 - 0.4 x10(3)/[facility] Basophil % 0.4 % [facility] Baso Absolute 0.0 0.0 - 0.1 x10(3)/[facility] Immature Gran % 0.30 % [facility] Comment: Immature granulocytes(IG's)percentage and absolute count will include metamyelocytes, myelocytes, and promyelocytes. Blood smears from CBCs yielding IG's will be scanned manually for concordance. If this scan disagrees with the automated IG or if promyelocytes are noted, a manual differential will be performed. Immature Gran Absolute 0.03 0.00 - 0.04 x10(3)/[facility] Blood specimen (specimen) 08/21/2019 4:28 PM EDT 08/21/2019 4:35 PM EDT Narrative Resulting Agency Comment Spec In Lab Benitez Adames MD HEMATOLOGY ORDERABLE S [facility] [address] * (ABNORMAL) Hemogram (08/21/2019 4:28 PM EDT) White Blood Cell 9.0 4.0 - 9.5 x10(3)/mc L [facility] Red Blood Cell 3.86(L) 4.00 - 5.21 x10(6)/mc L [facility] Hemoglobin 11.4(L) 11.7 - 15.5 gm/dL [facility] Hematocrit 36.6 35.7 - 45.8 % [facility] Mean Cell Volume 94.8(H) 82.6 - 94.4 [facility] Mean Cell Hemoglobin 29.5 27.1 - 32.[address] [facility] Mean Cell Hemoglobin Concentration 31.1(L) 31.7 - 35.0 gm/dL [facility] Platelet 264 145 - 357 x10(3)/mc L [facility] RDW Standard Deviation 49.9(H) 37.0 - 46.0 [facility] RDW coefficient of variation 14.3(H) 11.5 - 14.1 % [facility] Mean Platelet Volume 10.3 7.6 - 12.9 [facility] NRBC% auto 0.0 % [facility] NRBC Absolute 0.000 0.000 - 0.000 x10(3)/ L [facility] Blood specimen (specimen) 08/21/2019 4:28 PM EDT 08/21/2019 4:35 PM EDT Narrative Resulting Agency Comment Spec In Lab Benitez Adames MD HEMATOLOGY ORDERABLE S [facility] [place] [address] * (ABNORMAL) PTH (08/21/2019 4:28 PM EDT) Parathyroid Hormone 86(H) 15 - 65 pg/mL [facility] Blood specimen (specimen) 08/21/2019 4:28 PM EDT 08/21/2019 4:35 PM EDT Narrative Resulting Agency Comment Spec In Lab Benitez Adames MD CHEMISTRY ORDERABLES Performing Organization Address [facility] Co de Phone Number [facility] [place] [address] * Vitamin D, 25-Hydroxy (08/21/2019 4:28 PM EDT) Vitamin D Total 25 OH 46 30 - 100 ng/mL [facility] Comment: As of 2019, 25-hydroxyvitamin D testing has moved from the [employer] to the [facility] [facility]. No substantial change in measured values is expected. Blood specimen (specimen) 08/21/2019 4:28 PM EDT 08/21/2019 4:35 PM EDT Narrative Resulting Agency Comment Spec In Lab Benitez Adames MD CHEMISTRY ORDERABLES Performing Organization Address [facility]/ZIP Co de Phone Number [facility] [place] [address] * (ABNORMAL) Basic Metabolic Panel (non-fasting) (08/21/2019 4:28 PM EDT) Glucose 111 65 - 199 mg/dL [facility] Comment:Diabetes: >=200 mg/d L plus symptoms Blood Urea Nitrogen 24(H) 8 - 18 mg/dL [facility] Creatinine 1.28(H) 0.70 - 1.20 mg/dL [facility] Sodium 141 135 - 145 mmol/L [facility] Potassium 3.4(L) 3.5 - 5.0 mmol/L [facility] Comment: Please note: ??Patients with WBC >100,000 may have falsely elevated Potassium levels. ??For accurate Potassium quantification in these patients send serum separator tube (gold top) for subsequent determinations. ??Contact the Clinical Chemistry Laboratory if there are any questions. Chloride 99 98 - 107 mmol/L [facility] Carbon Dioxide 26 22 - 31 mmol/L [facility] Anion Gap 16(H) 5 - 15 mmol/L [facility] Calcium 9.2 8.5 - 10.5 mg/dL [facility] Est Glomerular Filtration Rate 46(L) >=60 mL/min/1. 73 m?? [facility] Comment: The eGFR was calculated using the CKD-EPI equation. As with all creatinine based estimates of kidney function, eGFR values calculated with the CKD-EPI equation are not accurate in patients with acute kidney failure, extremes of body mass or the acutely ill. [email or web address]/[facility]nk[facility] eGFR 53(L) >=60 mL/min/1. 73 m?? [facility] Comment: The eGFR was calculated using the CKD-EPI equation. As with all creatinine based estimates of kidney function, eGFR values calculated with the CKD-EPI equation are not accurate in patients with acute kidney failure, extremes of body mass or the acutely ill. http://K[employer]ix/DHnkf Blood specimen (specimen) 08/21/2019 4:28 PM EDT 08/21/2019 4:35 PM EDT Narrative Resulting Agency Comment Spec In Lab Benitez Adames MD CHEMISTRY ORDERABLES [facility] [place] [address] documented in this encounter Visit Diagnoses Diagnosis Chronic kidney disease, unspecified CKD stage Vitamin D insufficiency Unspecified vitamin D deficiency documented in this encounter Care Teams Choral Director Relationship Specialty Start Date End Date Marko Duffy DNP [address] [place] [address] PCP - General Family Medicine 07/10/19 08/22/20 documented as of this encounter
--- OUTSIDE RECORDS SUMMARY | 2024-10-01 21:13 | XMS_ITS | Encounter Summary ---
Author Organization [facility] Address [address] [place] [address] Care Team Providers Care Licensed Clinician Name Role Phone Dale Gomez MD Primary Care Provider [phone] Encounter Details Date Type Department Care Team (Late st Contact Info) Description 05/08/2007 Results Only [facility] - Maple conversion [address] [place] [address] Brittanie Judd, [employer] [address] [facility],[address] [address] Social History Tobacco Use Types [...] ? LAURA HARRIS ? Accession #: ? [id number] : ? 1960 (Age: 47) ??F ?Collect Date: ? 05/08/2007 Location: ? [facility] ? Receive Date: ? 05/10/2007 Provider: ?BRITTANIE JUDD [employer] Copy to: ? Specimen/Source: ?ThinPrep Pap Test, Cervix/Endocervix, processed on [employer] ThinPrep Imaging System, with manual evaluation Last [...] Document reviewed and electronically signed by: ? Angeles Obrien, CT(ASCP)(IAC) ? Report Date: ??05/15/2007 11:53 End of Report [facility] 05/08/2007 05/10/2007 us Brittanie Judd [employer] PATHOLOGY ORDERABLES Final R esult [facility] [address] [place] [address] documented in this encounter Visit Diagnoses Not on filedocumented in this encounter Care Teams Licensed Clinician Relationship Specialty Start Date End Date Dale Gomez MD [address] [place] [phone] PCP - General 12/06/09 09/20/22 documented as of this encounter
--- OUTSIDE RECORDS SUMMARY | 2024-10-01 21:13 | XMS_ITS | Encounter Summary ---
Author Organization [facility] [place] [address] Care Team Providers Care Set Up Mechanic Heading Machines Name Role Phone Stephany Allen APRN Primary Care Provider [phone] Reason for Visit * Reason Comments Pain Management Back Pain Knee Pain right Ankle Pain left * Consultation (Routine) - Closed Specialty Diagnoses / Procedures Referred By Pedro colunga Referred To Contact Pain Management Diagnoses ankle pain, back pain Procedures ankle pain, back pain Stephany Allen APRN [address] [place] [address] [address] [place] [address] [facility] [address] [place] [phone] Referral ID Status Reason Start Date Expiration Date Visits Re quested Visits Authorized [id number] Closed 07/21/2016 07/21/2017 1 1 Encounter Details Date Type Department Care Team (Late st Contact Info) Description 08/03/2016 12:30 PM EDT Office [place] [phone] Shu Juárez APRN [facility] [place] [address] Spondylosis of lumbar region without myelopathy or [...] this encounter Progress Notes * Shu Juárez, COVER MACHINE OPERATOR - 08/03/2016 12:30 PM EDT PAIN CLINIC FOLLOW-UP DATE OF VISIT 08/03/2016 Patient Lena Alexandre 1960 REFERRING PROVIDER Stephany Allen APRN [address], [facility] [address] [place] [address] PRIMARY CARE PROVIDER STEPHANY ALLEN APRN CHIEF COMPLAINT: Chronic pain management follow-up HPI: Lena Alexandre is a 56 year-old female initially seen by Dr. Rubio on 07/20/16 in the [facility] for back pain. She has [...] times daily. Yes Mometasone (NASONEX) 50 mcg/Actuation [place] by Nasal route. Yes acetaminophen (TYLENOL) 500 [...] answered to her satisfaction. Shu Juárez, MSN, N[facility]SE ST[facility], COVER MACHINE OPERATOR Nurse Practitioner [facility] documented in this encounter Plan of Treatment Not on file documented as of this encounter Visit Diagnoses Diagnosis Spondylosis of lumbar region without myelopathy or radiculopathy Lumbosacral spondylosis without myelopathy Facet arthropathy, lumbar Lumbosacral spondylosis without myelopathy documented in this encounter Care Teams Set Up Mechanic Heading Machines Relationship Specialty Start Date End Date Stephany Allen APRN PCP - General Family Medicine 05/17/16 05/21/19 documented as of this encounter
--- OUTSIDE RECORDS SUMMARY | 2024-10-01 21:13 | XMS_ITS | Encounter Summary ---
Author Organization [facility] [place] [address] Care Team Providers Care Awning Finisher Name Role Phone Unavailable Primary Care Provider Unavailabl e Encounter Details Date Type Department Care Team (Late st Contact Info) Description 10/12/2009 12:05 AM EST Ancillary Procedure Radiology Library at [place] [address] Destinee Bhatt APRN [address] [place] [address] Social History Tobacco Use Types Packs/Day Years [...] Bhatt APRN IMG FILM LIBRARY ORD ERABLES [facility] [place], [place] documented in this encounter Visit Diagnoses Not on filedocumented in this encounter
--- OUTSIDE RECORDS SUMMARY | 2024-10-01 21:13 | XMS_ITS | Encounter Summary ---
Author Organization [facility] Address [address] [place] [address] Care Team Providers Care Investigator Utility Bill Complaints Name Role Phone Dale Gomez MD Primary Care Provider [phone] Encounter Details Date Type Department Care Team (Late st Contact Info) Description 12/03/2001 Results Only [facility] - Maple conversion [address] [place] [address] Brittanie Judd, PROCESS DESIGNER [address] [facility],[address] [address] Social History Tobacco Use Types [...] ? LAURA HARRIS ? Accession #: ? [id number] : ? 1960 (Age: 41) ??F ?Collect Date: ? 12/03/2001 Location: ? [facility] ? Receive Date: ? 12/06/2001 Provider: ?BRITTANIE JUDD PROCESS DESIGNER Copy to: ? Specimen/Source: ?ThinPrep Pap Test, Cervix/Endocervix Last Menstrual Period: ? 11/18/01 Hormonal/Contracep tive Status: ? Depo-Provera ? SPECIMEN ADEQUACY ? Satisfactory for Evaluation - transformation zone component present GENERAL CATEGORIZATION ? Negative for Intraepithelial Lesion or Malignancy ? Document reviewed and electronically signed by: ? RAUL Melgar(ASCP) ? Report Date: ??12/09/2001 12:34 End of Report [facility] 12/03/2001 12/06/2001 us Brittanie Judd NP PATHOLOGY ORDERABLES Final R esult [facility] [address] [place] [address] documented in this encounter Visit Diagnoses Not on filedocumented in this encounter Care Teams Investigator Utility Bill Complaints Relationship Specialty Start Date End Date Dale Gomez MD [address] [place] [address] PCP - General 12/06/09 09/20/22 documented as of this encounter
--- OUTSIDE RECORDS SUMMARY | 2024-10-01 21:13 | XMS_ITS | Encounter Summary ---
Author Organization [facility] Address [address] [place] [address] Care Team Providers Care Coal Bagger Name Role Phone Dale Gomez MD Primary Care Provider [phone] Encounter Details Date Type Department Care Team (Late st Contact Info) Description 11/11/2003 Results Only [facility] - Maple conversion [address] [place] [address] Dale Sanchez MD [address] [place] [address] Social History Tobacco Use Types Packs/Day Years [...] ? LAURA HARRIS ? Accession #: ? [id number] ? : ? 1960 (Age: 43) ??F ? Collect Date: ? 11/11/2003 ? Location: ? [facility] ? Receive Date: ? 11/11/2003 ? Provider: RENE SANCHEZ MD Copy to: JAMES MOODY SHUTTLE BUS DRIVER ? Final Pathologic Diagnosis: ? Gastroesophageal junction, biopsy: 1. ?Hyperplastic gastroesophageal junction-type mucosa with mild chronic inflammation. 2. ?Negative for Helicobacter pylori-like microorganisms on H&E staining. Comment: ? The histologic features are compatible with mild reflux changes. ??(Dr. Sue)/[facility] Document reviewed and electronically signed by: Giorgi [...] is entirely submitted in one cassette. ??(Rebeka Barcenas)/[facility] End of Report [facility] 11/11/2003 11/11/2003 15: 16 EST us Dale Sanchez MD PATHOLOGY ORDERABLES Final Res ult [facility] [address] [place] [address] documented in this encounter Visit Diagnoses Not on filedocumented in this encounter Care Teams Coal Bagger Relationship Specialty Start Date End Date Dale Gomez MD [address] [place] [address] PCP - General 12/06/09 09/20/22 documented as of this encounter
--- OUTSIDE RECORDS SUMMARY | 2024-10-01 21:13 | XMS_ITS | Encounter Summary ---
Author Organization [facility] Address [address] [place] [address] Care Team Providers Care Boot Trimmer Name Role Phone Dale Gomez MD Primary Care Provider Encounter Details Date Type Department Care Team (Late st Contact Info) Description 12/22/2009 Results Only [facility] Laboratory Services - [facility] ([facility] [address] [place] [id number] Charanjit Adams MD [address] [place] [address] Social History Tobacco Use Types Packs/Day Years [...] ? HARRIS, LAURA ? Accession #: ? [id number] ? : ? 1960 (Age: 49) ??F ? Collect Date: ? 12/22/2009 ? Location: ? [facility] ? Receive Date: ? 12/23/2009 ? Provider: CHARANJIT ADAMS MD ? Copy to: JAMES MOODY SEWER CONTRACTOR ? Final Pathologic Diagnosis: ? Gallbladder, cholecystectomy: [...] ??/aneesh ? End of Report ? [facility] 12/22/2009 12/23/2009 9:0 2 EST us Charanjit Adams MD PATHOLOGY ORDERABLES Final Result Performing Organization Address [facility]/State/ZIP Co de Phone Number [facility] [address] [place] [address] documented in this encounter Visit Diagnoses Not on filedocumented in this encounter Care Teams Boot Trimmer Relationship Specialty Start Date End Date Dale Gomez MD [address] [place] [address] PCP - General 12/06/09 09/20/22 documented as of this encounter
--- OUTSIDE RECORDS SUMMARY | 2024-10-01 21:13 | XMS_ITS | Encounter Summary ---
Author Organization [facility] Address [address] [place] [address] Care Team Providers Care Industrial Chemistry Teacher Name Role Phone Dale Gomez MD Primary Care Provider [phone] Encounter Details Date Type Department Care Team (Late st Contact Info) Description 11/28/2011 Results Only [facility] [place] Laboratory Services - [facility] ([facility]) [address] [place], [place] [phone] James Moody, AMMY [address] [place] [address] Social History Tobacco Use Types [...] ? LAURA HARRIS ? Accession #: ? [id number] ? : ? 1960 (Age: 51) ??F ?Collect Date: ? 11/28/2011 ? Location: ? [facility] ? Receive Date: ? 11/29/2011 ? Provider: JAMES MOODY SCIENTIST Copy to: ? Final Report SPECIMEN ADEQUACY [...] confirmed the above diagnosis. End of Report [facility] 11/28/2011 11/29/2011 us James Moody SCIENTIST PATHOLOGY ORDERABLES Final R esult Performing Organization Address City/State/[facility] Co de Phone Number [facility] [address] [place] [address] documented in this encounter Visit Diagnoses Not on filedocumented in this encounter Care Teams Industrial Chemistry Teacher Relationship Specialty Start Date End Date Dale Gomez MD [address] [place] [phone] PCP - General 12/06/09 09/20/22 documented as of this encounter
--- OUTSIDE RECORDS SUMMARY | 2024-10-01 21:13 | XMS_ITS | Encounter Summary ---
Author Organization [facility] Address [address] [place] [address] Care Team Providers Care Property Site Manager Name Role Phone Dale Gomez MD Primary Care Provider [phone] Encounter Details Date Type Department Care Team (Late st Contact Info) Description 12/30/2004 Results Only [facility] - Maple conversion [address] [place] [address] James Moody, AMMY [address] [place] [address] Social History Tobacco Use Types [...] ? LAURA HARRIS ? Accession #: ? [id number] : ? 1960 (Age: 44) ??F ?Collect Date: ? 12/30/2004 Location: ? [facility] ? Receive Date: ? 01/03/2005 Provider: ?JAMES MOODY HOURLY SALES STAFF Copy to: ? Specimen/Source: ?ThinPrep Pap Test, [...] End of Report [facility] 12/30/2004 01/03/2005 us James Moody HOURLY SALES STAFF PATHOLOGY ORDERABLES Final R esult [facility] [address] [place] [address] documented in this encounter Visit Diagnoses Not on filedocumented in this encounter Care Teams Property Site Manager Relationship Specialty Start Date End Date Dale Gomez MD [address] [place] [address] PCP - General 12/06/09 09/20/22 documented as of this encounter
--- OUTSIDE RECORDS SUMMARY | 2024-10-01 21:13 | XMS_ITS | Encounter Summary ---
Author Organization [facility] [place] [address] Care Team Providers Care Pre Kindergarten Teacher Name Role Phone Unavailable Primary Care Provider Unavailabl e Encounter Details Date Type Department Care Team (Late st Contact Info) Description 10/05/2009 Ancillary Procedure Radiology Library at [facility] [place] [address] Destinee Bhatt APRN [address] [place] [address] Social History Tobacco Use Types Packs/Day Years [...] Only Mammo (10/05/2009 12:00 AM EST) Narrative [facility] - 02/27/2022 3:18 PM EDT This exam is auto-finalizing. It's purpose is for storage only. Destinee Bhatt APRN IMG FILM LIBRARY ORD ERABLES [place], [place] documented in this encounter Visit Diagnoses Not on filedocumented in this encounter
--- OUTSIDE RECORDS SUMMARY | 2024-10-01 21:13 | XMS_ITS | Encounter Summary ---
Author Organization [facility] [place] [address] Care Team Providers Care Mechanic Foreman Name Role Phone Unavailable Primary Care Provider Unavailabl e Encounter Details Date Type Department Care Team (Late st Contact Info) Description 09/07/2008 Ancillary Procedure Radiology Library at [facility] [place] [address] Destinee Bhatt APRN [address] [place] [address] Social History Tobacco Use Types Packs/Day Years [...] Bhatt APRN IMG FILM LIBRARY ORD ERABLES [place], [place] documented in this encounter Visit Diagnoses Not on filedocumented in this encounter
--- OUTSIDE RECORDS SUMMARY | 2024-10-01 21:13 | XMS_ITS | Referral Summary ---
Author Organization [facility] Address [address] [place] [address] Care Team Providers Care Head Batcher Name Role Phone Miller Destinee MARK Primary Care Provider [phone] Social History Tobacco Use Types Packs/Day Years [...] file Plan of Treatment Not on file Insurance [address] [place] [address] [place] Care Teams Head Batcher Relationship Specialty Start Date End Date Destinee Bhatt FNP [address] [place] [address] [address] [place] [address] PCP - General 09/21/22
--- OUTSIDE RECORDS SUMMARY | 2024-10-01 21:13 | XMS_ITS | Encounter Summary ---
Author Organization [facility] [place] [address] Care Team Providers Care Commercial Counsel Name Role Phone Jesse Stephany Flores APRN Primary Care Provider [phone] Encounter Details Date Type Department Care Team (Latest Contact Info) Description 09/27/2016 3:20 PM EST - 09/27/2016 11:59 PM EST Hospital Encounter XRay at [address] [place] [address] Glenn Mendiola Jr., MD [facility] [place] [address] Chronic pain of left ankle Discharge Disposition: [...] by mouth. 07/24 Mometasone (NASONEX) 50 mcg/Actuation Spearfish by Nasal route as needed. 09/07/2023 LACTOBACILLUS [...] ankle documented in this encounter Care Teams Commercial Counsel Relationship Specialty Start Date End Date Stephany Molina, HOOP BENDER TANK PCP - General Family Medicine 05/17/16 05/21/19 documented as of this encounter
--- OUTSIDE RECORDS SUMMARY | 2024-10-01 21:13 | XMS_ITS | Encounter Summary ---
Author Organization [facility] [place] [address] Care Team Providers Care Media Services Director Name Role Phone Mikala Cortez APRN Primary Care Provider + Encounter Details Date Type Department Care Team (Late st Contact Info) Description 08/03/2010 [place] [phone] Lambert Humphrey PONY RIDE ATTENDANT [facility] [place] [address] Social History Tobacco Use Types Packs/Day Years [...] IRON AND TIBC (08/03/2010 2:58 PM EDT) [facility] Iron 59 30 - 150 mcg/dL [facility] TIBC 367 250 - 450 mcg/dL [facility] Iron Saturation 16(L) 20 - 50 % [facility] Blood specimen (specimen) 08/03/2010 2:58 PM EDT 08/03/2010 3:04 PM EDT Tracia O'Faby PONY RIDE ATTENDANT CHEMISTRY ORDERABLES Performing Organization Address [facility] de Phone Number [facility] * FOLATE (08/03/2010 2:58 PM EDT) [facility] Folate >20.0 7.4 - 35.0 ng/mL [facility] Blood specimen (specimen) 08/03/2010 2:58 PM EDT 08/03/2010 3:04 PM EDT Tracia Jose'Faby PONY RIDE ATTENDANT CHEMISTRY ORDERABLES Performing Organization Address [facility] de Phone Number [facility] * VITAMIN B12 (08/03/2010 2:58 PM EDT) [facility] Vitamin B12 591 207 - 974 pg/mL [facility] Blood specimen (specimen) 08/03/2010 2:58 PM EDT 08/03/2010 3:04 PM EDT Tracia Jose'Faby PONY RIDE ATTENDANT CHEMISTRY ORDERABLES Performing Organization Address [facility] Co de Phone Number [facility] * (ABNORMAL) COMPREHENSIVE METABOLIC PANEL (NON-FASTING) (08/03/2010 2:58 PM EDT) [facility] Glucose 90 <=199 mg/dL [facility] Comment:Diabetes: >=200 mg/d L plus symptoms Blood [...] EDT 08/03/2010 3:04 PM EDT Lambert Humphrey PONY RIDE ATTENDANT CHEMISTRY ORDERABLES [facility]ERNER MILLENNIUM * REFLEX LAB-A-DIFF [...] (ABNORMAL) CBC (08/03/2010 2:58 PM EDT) Pathologist [facility] White Blood Cell 8.3 4.0 - 10.0 [...] on filedocumented in this encounter Care Teams Media Services Director Relationship Specialty Start Date End Date Mikala Cortez APRN PCP - General 09/13/10 05/16/16 documented as of this encounter
--- OUTSIDE RECORDS SUMMARY | 2024-10-01 21:13 | XMS_ITS | Encounter Summary ---
Author Organization [facility] [place] [address] Care Team Providers Care Nutritional Services Cook Name Role Phone Stephany Molina APRN Primary Care Provider [phone] Reason for Visit * Reason Comments Left Knee Pain Left Ankle Pain * Consultation ([facility]) - Closed Specialty Diagnoses / Procedures Referred By Pedro t Referred To Contact Orthopaedics Diagnoses Back pain, left ankle pain Stephany Molina APRN [address] [place] [address] [facility] [address] [place] [address] [facility] Orthopaedics [address] [place] [phone] Referral ID Status Reason Start Date Expiration Date V isits Requested Visits Authorized [id number] Closed Consult, Test & Treat Connection [facility] 09/19/2016 09/19/2017 1 1 Encounter Details Date Type Department Care Team (Late st Contact Info) Description 09/27/2016 4:00 PM EST Office [place] [address] Glenn Mendiola Jr., MD [facility] [place] [address] Hx of multiple trauma Social [...] documented in this encounter Progress Notes * Glenn Mendiola Jr., MD - 09/27/2016 4:00 [...] wanted to go to and I guess [facility] fairs or [facility] fairs are a big thing for [...] 20 of this 35-minute visit was in [id number] discussion about options of treatment, nature of [...] injury documented in this encounter Care Teams Nutritional Services Cook Relationship Specialty Start Date End Date Stephany Molina APRN PCP - General Family Medicine 05/17/16 05/21/19 documented as of this encounter
--- OUTSIDE RECORDS SUMMARY | 2024-10-01 21:13 | XMS_ITS | Encounter Summary ---
Author Organization [facility] Address [address] [place] [address] Care Team Providers Care Novelty Printing Machine Operator Name Role Phone Unavailable Primary Care Provider Unavailabl e Encounter Details Date Type Department Care Team (Late st Contact Info) Description 12/02/2009 Orders Only [facility] Laboratory Services - [facility] ([facility] [address] [place], [place] [address] Charanjit Adams MD [address] [place] [address] Social History Tobacco Use Types Packs/Day Years [...] ? HARRIS, LAURA ? Accession #: ? [id number] ? : ? 1960 (Age: 49) ??F ? Collect Date: ? 12/02/2009 ? Location: ? [facility] ? Receive Date: ? 12/03/2009 ? Provider: CHARANJIT ADAMS MD ? Copy to: JAMES MOODY ACCREDITED PHARMACY TECHNICIAN ? Final Pathologic Diagnosis: ? Esophagus, 35 [...] ??(Dr. Myles)/kmm ? End of Report ? [facility] 12/02/2009 12/03/2009 16: 39 EST us Charanjit Adams MD PATHOLOGY ORDERABLES Final Result Performing Organization Address City/State/[facility] Co de Phone Number [facility] [address] [place] [address] documented in this encounter Visit Diagnoses Not on filedocumented in this encounter
--- OUTSIDE RECORDS SUMMARY | 2024-10-01 21:13 | XMS_ITS | Encounter Summary ---
Author Organization [facility] Address [address] [place] [address] Care Team Providers Care Drafter Topographical Name Role Phone Dale Gomez MD Primary Care Provider [phone] Destinee Bhatt Primary Care Provider [phone] Encounter Details Date Type Department Care Team (Latest Contact Info) Description 06/01/2021 Lab Requisition [facility] Pathology & Laboratory Medicine - [address] [address] Destinee Bhatt FNP [address] [facility] [address] [place] [phone] Encounter for general adult medical examination without [...] types, PCR Negative Negative 06/13/2021 12:02 EDT [facility] Comment:No E6 or E7 mRNA is detected from HPV types 16,18,31,33,35,39,45,51,52,56,58,59,66, and 68 by sausage cutter mediated amplification. Papanicolaou smear specimen (specimen) CERVIX UTERI STRUCTURE / Unknown 05/31/2021 12:30 EDT 06/08/2021 15:18 EDT Destinee Bhatt CERTIFIED PEER SPECIALIST MICROBIOLOGY - GENERAL ORDERABLE S Final Result [facility] [address] [place] [address] * PAP TEST (05/31/2021 12:30 EDT) Specimens A. Cervix and/or Endocervix , ThinPrep Imaging System with Manual Evaluation 06/13/2021 12:02 T [facility] Specimen Adequacy Satisfactory for Evaluation - transformation zone component present 06/13/2021 12:02 [facility] General Categorization Negative for intraepithelial lesion or malignancy 06/13/2021 12:02 T [facility] Attestation . 06/13/2021 12:02 [facility] at 1202 Clinical History See below 06/13/20 12:02 [facility] HPV The result for the Human Papillomavirus (HPV) Detection-High Risk Types is Negative. No E6 or E7 mRNA is detected from HPV types 16,18,31,33,35,39 ,45,51,52,56,58,5 9,66, and 68 by sausage cutter mediated amplification.Ceci ting was performed on specimen [id number] and was resulted on 06/13/2021 1158 EDT by EDWIGE, LAB INSTRUMENT RESULTS IN 06/13/2021 12:02 EDT [facility] Performing Lab [facility] 06/13/2021 12:02 EDT [facility] Scanned Images 06/13/2021 12:02 EDT [facility] Papanicolaou smear specimen (specimen) CERVIX UTERI STRUCTURE / Unknown 05/31/2021 12:30 EDT 06/01/2021 16:23 EDT Destinee FLORES PATHOLOGY ORDERABLES Final Resul t [facility] [address] [place] [address] documented in this encounter Visit Diagnoses Diagnosis Encounter for general adult medical examination without abnormal findings Unspecified general medical examination Encounter for screening for malignant neoplasm of cervix Screening for malignant neoplasm of the cervix Encounter for gynecological examination (general) (routine) without abnormal findings documented in this encounter Care Teams Drafter Topographical Relationship Specialty Start Date End Date Dale Gomez MD [address] [place] [address] PCP - General 12/06/09 09/20/22 Destinee Bhatt FNP 26 [facility] [address] [place] [address] PCP - General 09/21/22 documented as of this encounter
--- OUTSIDE RECORDS SUMMARY | 2024-10-01 21:13 | XMS_ITS | Encounter Summary ---
[place] [address] Care Team Providers Care Director Of Casework Services Name Role Phone Mikala Cortez APRN Primary Care Provider + Encounter Details Date Type Department Care Team (Late st Contact Info) Description 06/12/2011 [place] [phone] Cadence Peters, RN Social History Tobacco Use [...] on filedocumented in this encounter Care Teams Director Of Casework Services Relationship Specialty Start Date End Date Mikala Cortez APRN PCP - General 09/13/10 05/16/16 documented as of this encounter
--- OUTSIDE RECORDS SUMMARY | 2024-10-01 21:13 | XMS_ITS | Encounter Summary ---
Author Organization [facility] [place] [address] Care Team Providers Care Edge Sawyer Name Role Phone Unavailable Primary Care Provider Unavailabl e Encounter Details Date Type Department Care Team (Late st Contact Info) Description 04/16/2007 Ancillary Procedure Radiology Library at [facility] [place] [address] Destinee Bhatt APRN [address] [place] [address] Social History Tobacco Use Types Packs/Day Years [...] Only Mammo (04/16/2007 12:00 AM EDT) Narrative RAD - 02/27/2022 3:19 PM EDT This exam is auto-finalizing. It's purpose is for storage only. Destinee Bhatt APRN IMG FILM LIBRARY ORD ERABLES [place], [place] documented in this encounter Visit Diagnoses Not on filedocumented in this encounter
--- OUTSIDE RECORDS SUMMARY | 2024-10-01 21:13 | XMS_ITS | Encounter Summary ---
Author Organization [facility] Address [address] [place] [address] Care Team Providers Care Program Manager Slp Name Role Phone Dale Gomez MD Primary Care Provider [phone] Encounter Details Date Type Department Care Team (Late st Contact Info) Description 12/29/2003 Results Only [facility] - Maple conversion [address] [place] [address] James Moody, AMMY [address] [place] [address] Social History Tobacco Use Types [...] ? LAURA HARRIS ? Accession #: ? [id number] : ? 1960 (Age: 43) ??F ?Collect Date: ? 12/29/2003 Location: ? [facility] ? Receive Date: ? 12/31/2003 Provider: ?JAMES MOODY SHOCHET Copy to: ? Specimen/Source: ?ThinPrep Pap Test, [...] End of Report [facility] 12/29/2003 12/31/2003 us James Moody SHOCHET PATHOLOGY ORDERABLES Final R esult [facility] [address] [place] [address] documented in this encounter Visit Diagnoses Not on filedocumented in this encounter Care Teams Program Manager Slp Relationship Specialty Start Date End Date Dale Gomez MD [address] [place] [phone] PCP - General 12/06/09 09/20/22 documented as of this encounter
--- OUTSIDE RECORDS SUMMARY | 2024-10-01 21:13 | XMS_ITS | Encounter Summary ---
Author Organization [facility] Address [address] [place] [address] Care Team Providers Care Homemaker Companion Name Role Phone Dale Gomez MD Primary Care Provider [phone] Encounter Details Date Type Department Care Team (Late st Contact Info) Description 03/13/2019 Results Only [facility] [phone] Cat Poon, DNP [address] [place] [address] Social History Tobacco Use Types [...] ? LAURA HARRIS ? Accession #: ? [id number] ? : ? 1960 (Age: 58) ??F ? Collect Date: ? 03/13/2019 ? Location: ? [facility] ? Receive Date: ? 03/14/2019 ? Provider: CAT DUFFY [facility] Copy to: DIANNATAO ALLEN BUSINESS AREA DIRECTOR ? Final Pathologic Diagnosis: A. ??SKIN OF [...] drug eruption. ??Clinical correlation is recommended. ??(Dr. Mahoney)/[facility] Microscopic Description: The shave biopsies from [...] and B and show similar findings. ??(Dr. Mahoney)/[facility] Document reviewed and electronically signed by: [...] inked and submitted in B1. RIVAS [facility] 03/14/2019 4:11 PM End of Report [facility] 03/13/2019 15:3 8 EDT 03/14/2019 15:38 EDT us Cat Duffy DNP PATHOLOGY ORDERABLES Steffanie bennett Result [facility] [address] [place] [address] documented in this encounter Visit Diagnoses Not on filedocumented in this encounter Care Teams Homemaker Companion Relationship Specialty Start Date End Date Dale Gomez MD [address] [place] [address] PCP - General 12/06/09 09/20/22 documented as of this encounter
--- OUTSIDE RECORDS SUMMARY | 2024-10-01 21:13 | XMS_ITS | Encounter Summary ---
Author Organization [facility] Address [address] [place] [address] Care Team Providers Care Supervisor Enrobing Name Role Phone Dale Gomez MD Primary Care Provider [phone] Encounter Details Date Type Department Care Team (Latest Contact Info) Description 03/13/2019 10:13 EDT - 03/13/2019 23:59 EDT Hospital Encounter [facility] [address] [place] [phone] Unknown, Provider, Discharge Disposition: Home or Self [...] Code Departure Means Destination Home or Self Group Home documented in this encounter Plan of Treatment Not on file documented as of this encounter Visit Diagnoses Not on filedocumented in this encounter Care Teams Supervisor Enrobing Relationship Specialty Start Date End Date Dale Gomez MD [address] [place] [address] PCP - General 12/06/09 09/20/22 documented as of this encounter
--- OUTSIDE RECORDS SUMMARY | 2024-10-01 21:13 | XMS_ITS | Encounter Summary ---
[place] [address] Care Team Providers Care Tangible Personal Property Appraiser Name Role Phone Stephany Molina APRN Primary Care Provider [phone] Encounter Details Date Type Department Care Team (Late st Contact Info) Description 09/13/2016 Telephone [place] [phone] Claudia Tirado RN Social History Tobacco Use [...] on filedocumented in this encounter Care Teams Tangible Personal Property Appraiser Relationship Specialty Start Date End Date Stephany Molina APRN PCP - General Family Medicine 05/17/16 05/21/19 documented as of this encounter
--- OUTSIDE RECORDS SUMMARY | 2024-10-01 21:13 | XMS_ITS | Encounter Summary ---
Author Organization [facility] [place] [address] Care Team Providers Care Vp Digital Marketing Name Role Phone Jesse Stephany Flores APRN Primary Care Provider [phone] Encounter Details Date Type Department Care Team (Latest Contact Info) Description 07/21/2016 - 07/21/2016 11:59 PM EDT Hospital Encounter Radiology Library at [facility] [place] [phone] Kassy Rubio MD [facility] [place] [address] Pain Discharge Disposition: Home Social History Tobacco [...] Tablet 06/12/2016 08/21/2019 fluticasone (FLONASE) 50 mcg/actuation [place], Suspension 1 spray daily. 08/03/2016 melatonin 3 mg Tablet Take by mouth. 07/24 ferrous sulfate 325 mg (65 mg iron) Tablet Take 325 mg by mouth daily (with breakfast). 09/27/2016 potassium chloride (MICRO-K) 10 mEq Capsule, Sustained Release Take 10 mEq by mouth 2 times daily. 09/27/2016 Mometasone (NASONEX) 50 mcg/Actuation [place] by Nasal route as needed. 09/07/2023 celecoxib [...] DX Spine (07/21/2016 12:00 AM EDT) Narrative [facility] - 07/21/2016 4:45 PM EDT This exam is for storage only and is auto-finalizing. Kassy Rubio MD IMG FILM LIBRARY ORD ERABLES Performing Organization Address City/State/[facility] Co de Phone Number [place], [place] documented in this encounter Visit Diagnoses Diagnosis Pain Generalized pain documented in this encounter Care Teams Vp Digital Marketing Relationship Specialty Start Date End Date Stephany Molina APRN PCP - General Family Medicine 05/17/16 05/21/19 documented as of this encounter
--- OUTSIDE RECORDS SUMMARY | 2024-10-01 21:13 | XMS_ITS | Encounter Summary ---
Author Organization [facility] Address [address] [place] [address] Care Team Providers Care Watch Crystal Edge Grinder Name Role Phone Unavailable Primary Care Provider Unavailabl e Encounter Details Date Type Department Care Team (Late st Contact Info) Description 06/23/2008 Before PRISM Converted Visit (Maple) [facility] - Maple conversion [address] [place] [address] James Moody, CONSTRUCTION RIGGER [address] [place] [address] Social History Tobacco Use Types [...] ? LAURA HARRIS ? Accession #: ? [id number] ? : ? 1960 (Age: 48) ??F [...] 07:55 ? End of Report ? [facility] 06/23/2008 06/23/2008 us James Moody CONSTRUCTION RIGGER PATHOLOGY ORDERABLES Final R esult [facility] [address] [place] [address] documented in this encounter Visit Diagnoses Not on filedocumented in this encounter
--- OUTSIDE RECORDS SUMMARY | 2024-10-01 21:13 | XMS_ITS | Encounter Summary ---
Author Organization [facility] [address] [place] [address] Care Team Providers Care Dry Wall Plasterer Name Role Phone Jesse Cooke Sandra TABOR Primary Care Provider [phone] Encounter Details Date Type Department Care Team (Late st Contact Info) Description 09/27/2016 Orders [place] [address] Glenn Mendiola Jr., MD [facility] [place] [address] Right knee pain, unspecified chronicity Social History [...] XR Knee Standing Alignment AP Lat [place] Right (09/27/2016 4:17 PM EST) Anatomical Region [...] chronicity documented in this encounter Care Teams Dry Wall Plasterer Relationship Specialty Start Date End Date Stephany Molina APRN PCP - General Family Medicine 05/17/16 05/21/19 documented as of this encounter
--- OUTSIDE RECORDS SUMMARY | 2024-10-01 21:13 | XMS_ITS | Encounter Summary ---
Author Organization [facility] Address [address] [place] [address] Care Team Providers Care Poultry Offal Worker Name Role Phone MillerDestinee MARK Primary Care Provider [phone] Encounter Details Date Type Department Care Team (Late st Contact Info) Description 10/30/2022 Lab Requisition [facility] Laboratory Medicine - [address] [address] Ki Bonner MD [address] [place] [phone] Encounter for screening for malignant neoplasm of [...] explore management options, if applicable. 11/02/2022 9:06 [facility] Final Diagnosis A. COLON, TRANSVERSE, POLYP, BIOPSY: - Tubular adenoma. B. RECTUM, POLYP, BIOPSY: - Hyperplastic polyp. - Deeper levels examined. 11/02/2022 9:06 [facility] Attestation There was significant resident/fellow involvement in the diagnostic evaluation of this case. By the signature below, the attending physician certifies that they have personally conducted a gross and/or microscopic examination of the described specimens and rendered or confirmed the above diagnosis. 11/02/2022 9:06 [facility] at 0906 Clinical History Colorectal screening 11/02/2022 9:06 [facility] Gross Description A. Received in [...] B1. Elizabeth Palmer 10/31/2022 8:35 11/02/2022 9:06 [facility] Resident/Charly w: Ricky Baez MD 11/02/2022 9:06 [facility] Performing Lab [facility] 11/02/2022 9:06 [facility] Scanned Images 11/02/2022 9:06 [facility] Tissue SPECIMEN FROM RECTUM / Unknown 10/30/2022 10:00 EST 10/30/2022 19:31 EST Tissue specimen (specimen) SPECIMEN FROM RECTUM / Unknown 10/30/2022 10:00 EST 10/30/2022 19:31 EST us Ki Bonner MD PATHOLOGY ORDERABLES F inal Result [facility] [address] [place] [address] documented in this encounter Visit Diagnoses Diagnosis Encounter for screening for malignant neoplasm of colon Special screening for malignant neoplasms, colon documented in this encounter Care Teams Poultry Offal Worker Relationship Specialty Start Date End Date Destinee Bhatt FNP [address] [facility] [address] [place] [address] PCP - General 09/21/22 documented as of this encounter
[2024-10-01 22:13] LABS: COMMENT (LAB VIEW ONLY) 294.54 mg/dL; Microalb ug/mg Crea 4.7 ug/mg Cr
[2024-10-01 22:36] LABS: ALT 26 U/L (14-59); AST 21 U/L (15-37); Albumin 3.8 g/dL (3.4-5.0); Alkaline Phosphatase 128 U/L (46-116); Anion Gap 8.9 mmol/L (3-11); BUN 25 mg/dL (7-18); Bilirubin, Total 0.54 mg/dL (0.2-1.0); CO2 27.1 mmol/L (21.0-32.0); CREATININE 1.3 mg/dL (0.55-1.02); Calcium 8.4 mg/dL (8.5-10.1); Chloride 110 mmol/L (98-107); Estimated GFR 45.92 (mL/min/1.73m2); Glucose 93 mg/dL (74-106); Magnesium 1.4 mg/dL (1.8-2.4); Potassium 3.7 mmol/L (3.5-5.1); Sodium 146 mmol/L (136-145); Total Protein 6.6 g/dL (6.4-8.2)
== END 2024-10-01 21:11 | disposition home or self-care (01) ==
LOC: NCHCN 21:10
PROVIDERS: PCP Nurse Practitioner Family; Visit Provider Nurse Practitioner Family
DX: N18.30 Chronic kidney disease, stage 3 unspecified (principal); E83.42 Hypomagnesemia
CPT/HCPCS: 80053; 82043; 82570; 83735; 83970

== ENCOUNTER 2024-10-07 01:44 | Outpatient (CLI) | payer OTHER, SELFPAY ==
--- NOTE | 2024-10-07 | DI.RAD_ITS ---
Exam(s) XR LUMBAR SPINE COMPLETE EXAM: XR LUMBAR SPINE COMPLETE CLINICAL HISTORY: LBP, M54.50. TECHNIQUE: 2D digital imaging was performed of the lumbar spine. Five images were obtained. AP, la teral, right oblique, left oblique and L5-S1 spot views were obtained. COMPARISON: CR,XR XR LUMBAR SPINE COMPLETE from 09/11/2019 CR XR DEXA BONE DENSITY W/WO [place] from 03/27/2024 FINDINGS: BONES: No acute fracture or destructive lesion. There is an old compression deformity of T12. There is also again seen an old compression deformity of the superior endplate of L1. Facet arthropathy is seen at L4-5 and L5-S1. There are endplate osteophytes seen in the lower lumbar spine. DISKS: Intervertebral disc spaces are maintained. ALIGNMENT: Lumbar spinal alignment is within normal limits. No spondylolysis or spondylolisthesis. SOFT TISSUE: Normal. IMPRESSION: There are [id number] degenerative changes seen in the lumbar spine. DATA REPOSITORY: RADIATION DOSE DELIVERED:
== END 2024-10-07 02:04 ==
LOC: DI 01:45
PROVIDERS: PCP Nurse Practitioner Family; Visit Provider Nurse Practitioner Family
DX: M51.362 Other intervertebral disc degeneration, lumbar region with discogenic back pain and lower extremity pain (principal)
CPT/HCPCS: 72110

== ENCOUNTER 2025-04-17 15:19 | Outpatient (REF) | payer MEDICARE, OTHER, SELFPAY ==
[2025-04-17 15:20] LABS: HCT 36.1 % (36.0-46.0); HGB 11.2 g/dL (11.2-15.7); MCH 28.1 pg (27.0-33.0); MCV 91 fL (80-95); Platelet Count 209 10^3/uL (130-400); RBC 3.98 10^6/uL (3.93-5.22); RDW 13.8 % (11.7-14.6); RDW-SD 45.7 fL; WBC 7.13 10^3/uL (4.4-10.8)
[2025-04-17 16:18] LABS: ALT 51 U/L (14-59); AST 40 U/L (15-37); Albumin 3.9 g/dL (3.4-5.0); Alkaline Phosphatase 138 U/L (46-116); Anion Gap 8.8 mmol/L (3-11); BUN 21 mg/dL (7-18); Bilirubin, Total 0.6 mg/dL (0.2-1.0); CO2 27.2 mmol/L (21.0-32.0); CREATININE 1.1 mg/dL (0.55-1.02); Calcium 8.2 mg/dL (8.5-10.1); Calculated LDL 71 mg/dL (<100); Chloride 108 mmol/L (98-107); Cholesterol 143 mg/dL (<200); Estimated GFR 55.76 (mL/min/1.73m2); Glucose 84 mg/dL (74-106); HDL Cholesterol 52 mg/dL (>or=50); Magnesium 1.7 mg/dL (1.8-2.4); Potassium 4.2 mmol/L (3.5-5.1); Sodium 144 mmol/L (136-145); TSH (W/Ref FT4) 1.21 uIU/mL (0.36-3.74); Total Protein 6.5 g/dL (6.4-8.2); Triglyceride 101 mg/dL (<150); Vitamin D 25 Total 36 ng/mL (30-100)
== END 2025-04-17 15:20 | disposition home or self-care (01) ==
LOC: NCHCN 15:19
PROVIDERS: PCP Nurse Practitioner Family; Visit Provider Nurse Practitioner Family
DX: E02 Subclinical iodine-deficiency hypothyroidism (principal); E78.5 Hyperlipidemia, unspecified; E83.42 Hypomagnesemia; N18.30 Chronic kidney disease, stage 3 unspecified
CPT/HCPCS: 80053; 80061; 82306; 85027; 83735; 84443

== ENCOUNTER 2025-05-18 13:11 | Outpatient (REF) | payer MEDICARE, SELFPAY ==
[2025-05-18 16:48] LABS: ALT 33 U/L (14-59); AST 23 U/L (15-37); Albumin 3.7 g/dL (3.4-5.0); Alkaline Phosphatase 125 U/L (46-116); Anion Gap 8.0 mmol/L (3-11); BUN 15 mg/dL (7-18); Bilirubin, Total 0.6 mg/dL (0.2-1.0); CO2 31.0 mmol/L (21.0-32.0); Calcium 8.3 mg/dL (8.5-10.1); Chloride 107 mmol/L (98-107); Estimated GFR 55.76 (mL/min/1.73m2); GGT 66 U/L (5-55); Glucose 88 mg/dL (74-106); Potassium 4.4 mmol/L (3.5-5.1); Sodium 146 mmol/L (136-145); Total Protein 6.5 g/dL (6.4-8.2)
== END 2025-05-18 13:12 | disposition home or self-care (01) ==
LOC: NCHCN 13:11
PROVIDERS: PCP Nurse Practitioner Family; Visit Provider Nurse Practitioner Family
DX: R74.8 Abnormal levels of other serum enzymes (principal)
CPT/HCPCS: 80053; 82977